=== PATIENT | female | born 1945 | race Caucasian/White ===

== ENCOUNTER 2020-05-01 06:15 | Outpatient (REF) | payer MEDICARE, SELFPAY | END 2020-05-01 06:16 | disposition home or self-care (01) | LOC: HO.LAB 06:15 | PROVIDERS: PCP Internal Medicine; Visit Provider Internal Medicine | DX: Z20.828 Contact with and (suspected) exposure to other viral communicable diseases (principal) | CPT/HCPCS: C9803; U0003 ==

== ENCOUNTER 2020-08-13 11:23 | Outpatient (REF) | payer MEDICARE, SELFPAY ==
[2020-08-13 13:14] LABS: COVID-19 Test Negative (Negative)
== END 2020-08-13 11:24 | disposition home or self-care (01) ==
LOC: HO.LAB 11:23
PROVIDERS: Visit Provider Internal Medicine
DX: Z20.822 Contact with and (suspected) exposure to COVID-19 (principal)
CPT/HCPCS: 36415; 87635; C9803

== ENCOUNTER 2021-08-05 12:16 | Day surgery (SDC) | payer MEDICARE, SELFPAY ==
--- NOTE | 2021-08-02 09:35 | P.CONAN_ITS ---
Documented by User: Marika Hagen NP 08/02/21 09:36 HPI - Anesthesia Eval Consult details Narrative: 76yo F for Upper Endoscopy and Colonoscopy Multiple Med Allergies including fentanyl and lidocaine PMFSH Past Medical History Medical History (Updated 07/31/21 @ 11:08 by Yolanda Preciado, RN) Dysphagia Fibromyalgia GERD (gastroesophageal reflux disease) Hx of sinusitis Left bundle branch block (LBBB) Lower extremity edema Osteoporosis Personal history of COVID-19 Skin cancer Skin cancer of forehead Surgical History Surgical History (Updated 07/31/21 @ 11:08 by Yolanda Preciado, RN) History of appendectomy History of esophagogastroduodenoscopy (EGD) Hx of section Hx of colonoscopy Hx of hysterectomy Social History Social History Patient Tobacco Use Status: Never used Tobacco Use of substances other than those prescribed or required for medical reasons: No Are you DNR?: No Advance Directives: No Advance Directives Information Provided: Yes Recently lost weight without trying: No Nutrition Risks: No Nutritional Risk Meds Allergies Allergy/AdvReac Type Severity Reaction Status Date / Time Iodinated Contrast Media Allergy Severe Rash Verified 08/05/21 12:42 [IV CONTRAST] amoxicillin [AMOXICILLIN] Allergy Intermediate HIVES Verified 08/05/21 12:40 aspirin [ASA] Allergy Intermediate HIVES Verified 08/05/21 12:40 atenolol [ATENOLOL] Allergy Intermediate HIVES Verified 08/05/21 12:40 caffeine [CAFFEINE] Allergy Intermediate HIVES Verified 08/05/21 12:40 cat dander [CATS] Allergy Intermediate HIVES Verified 08/05/21 12:40 cefprozil [From CEFZIL] Allergy Intermediate HIVES Verified 08/05/21 12:40 cephalexin [From KEFLEX] Allergy Intermediate HIVES Verified 08/05/21 12:40 clarithromycin [From BIAXIN] Allergy Intermediate HIVES Verified 08/05/21 12:40 clindamycin [From CLEOCIN] Allergy Intermediate HIVES Verified 08/05/21 12:40 codeine [CODEINE] Allergy Intermediate HIVES Verified 08/05/21 12:40 corn [CORN] Allergy Intermediate HIVES Verified 08/05/21 12:40 diphenhydramine Allergy Intermediate HIVES Verified 08/05/21 12:40 [From BENADRYL] dog dander [DOGS] Allergy Intermediate HIVES Verified 08/05/21 12:40 egg [EGGS] Allergy Intermediate HIVES Verified 08/05/21 12:40 erythromycin base Allergy Intermediate ANAPHYLAXIS Verified 08/05/21 12:40 [From ERYTHROCIN] fentanyl [FENTANYL] Allergy Intermediate HIVES Verified 08/05/21 12:40 ghosh [GHOSH] Allergy Intermediate HIVES Verified 08/05/21 12:40 horse dander [HORSE DANDER] Allergy Intermediate HIVES Verified 08/05/21 12:40 ibuprofen [IBUPROFEN] Allergy Intermediate HIVES Verified 08/05/21 12:40 insect venom [MOSQUITO] Allergy Intermediate HIVES Verified 08/05/21 12:40 latex [LATEX] Allergy Intermediate HIVES Verified 08/05/21 12:40 levofloxacin [From LEVAQUIN] Allergy Intermediate HIVES Verified 08/05/21 12:40 lidocaine [LIDOCAINE] Allergy Intermediate HIVES Verified 08/05/21 12:40 metoprolol [METOPROLOL] Allergy Intermediate HIVES Verified 08/05/21 12:40 mite-Dermatophagoides Allergy Intermediate HIVES Verified 08/05/21 12:40 farinae, florentin [DUST MITES] mold [MOLD] Allergy Intermediate HIVES Verified 08/05/21 12:40 nut - unspecified [NUTS] Allergy Intermediate HIVES Verified 08/05/21 12:40 Penicillins [PCN] Allergy Intermediate Anaphylaxis Verified 08/05/21 12:42 soy [SOY] Allergy Intermediate HIVES Verified 08/05/21 12:40 Sulfa (Sulfonamide Allergy Intermediate HIVES Verified 08/05/21 12:40 Antibiotics) [SULFA (SULFONAMIDE ANTIBIOTICS)] sulfamethoxazole Allergy Intermediate HIVES Verified 08/05/21 12:40 [From BACTRIM] tetracycline [TETRACYCLINE] Allergy Intermediate HIVES Verified 08/05/21 12:40 tree and shrub pollen [TREE] Allergy Intermediate HIVES Verified 08/05/21 12:40 trimethoprim [From BACTRIM] Allergy Intermediate HIVES Verified 08/05/21 12:40 wheat [WHEAT] Allergy Intermediate HIVES Verified 08/05/21 12:40 clavulanic acid [Augmentin] Allergy Unknown Unknown Verified 07/31/21 10:54 mannitol [Reclast] Allergy Unknown Unknown Verified 07/31/21 10:54 methsuximide [Celontin] Allergy Unknown Unknown Verified 07/31/21 10:54 zoledronic acid [Reclast] Allergy Unknown Unknown Verified 07/31/21 10:54 prednisone Allergy Rash Verified 08/05/21 12:44 shellfish derived Allergy Rash Verified 08/05/21 12:47 doxycycline AdvReac Severe Rash Verified 08/05/21 12:47 acetaminophen AdvReac Rash Verified 08/05/21 12:45 banana AdvReac Rash Verified 08/05/21 12:49 DUST Allergy Intermediate HIVES Uncoded 07/31/21 10:54 FRUIT Allergy Intermediate HIVES Uncoded 07/31/21 10:54 MADRIBON Allergy Intermediate HIVES Uncoded 07/31/21 10:54 VEGETABLES,FRESH Allergy Intermediate HIVES Uncoded 07/31/21 10:54 Ivp Dye- Omnipaque AdvReac Unknown rash Uncoded 07/31/21 10:54 Home Medications Medication Instructions Recorded Confirmed Last Taken Type calcium carbonate 600 mg-vitamin 1 tab PO DAILY 07/31/21 07/31/21 Unknown History D3 5 mcg (200 unit) tablet ibandronate 150 mg tablet 150 mg PO QMONTH 07/31/21 07/31/21 Unknown History multivitamin with minerals 1 tab PO DAILY 07/31/21 07/31/21 Unknown History Exam Exam Date and Time: August 02, 2021 0935 Assessment and Plan Assessment Anesthesia Assessment: Chart Reviewed Documented by User: Lon Subramanian MD 08/05/21 21:18 [facility] Past Medical History Medical History (Updated 07/31/21 @ 11:08 by Yolanda Preciado, AILEEN) Dysphagia Fibromyalgia GERD (gastroesophageal reflux disease) Hx of sinusitis Left bundle branch block (LBBB) Lower extremity edema Osteoporosis Personal history of COVID-19 Skin cancer Skin cancer of forehead Family History Family history of problems with anesthesia: No Surgical History Surgical History (Updated 07/31/21 @ 11:08 by Yloanda Preciado, AILEEN) History of appendectomy History of esophagogastroduodenoscopy (EGD) Hx of section Hx of colonoscopy Hx of hysterectomy History of Problems with Anesthesia: No Social History Social History Patient Tobacco Use Status: Never used Tobacco Use of substances other than those prescribed or required for medical reasons: No Are you DNR?: No Advance Directives: No Advance Directives Information Provided: Yes Recently lost weight without trying: No Nutrition Risks: No Nutritional Risk Meds Allergies Allergy/AdvReac Type Severity Reaction Status Date / Time Iodinated Contrast Media Allergy Severe Rash Verified 08/05/21 12:42 [IV CONTRAST] amoxicillin [AMOXICILLIN] Allergy Intermediate HIVES Verified 08/05/21 12:40 aspirin [ASA] Allergy Intermediate HIVES Verified 08/05/21 12:40 atenolol [ATENOLOL] Allergy Intermediate HIVES Verified 08/05/21 12:40 caffeine [CAFFEINE] Allergy Intermediate HIVES Verified 08/05/21 12:40 cat dander [CATS] Allergy Intermediate HIVES Verified 08/05/21 12:40 cefprozil [From CEFZIL] Allergy Intermediate HIVES Verified 08/05/21 12:40 cephalexin [From KEFLEX] Allergy Intermediate HIVES Verified 08/05/21 12:40 clarithromycin [From BIAXIN] Allergy Intermediate HIVES Verified 08/05/21 12:40 clindamycin [From CLEOCIN] Allergy Intermediate HIVES Verified 08/05/21 12:40 codeine [CODEINE] Allergy Intermediate HIVES Verified 08/05/21 12:40 corn [CORN] Allergy Intermediate HIVES Verified 08/05/21 12:40 diphenhydramine Allergy Intermediate HIVES Verified 08/05/21 12:40 [From BENADRYL] dog dander [DOGS] Allergy Intermediate HIVES Verified 08/05/21 12:40 egg [EGGS] Allergy Intermediate HIVES Verified 08/05/21 12:40 erythromycin base Allergy Intermediate ANAPHYLAXIS Verified 08/05/21 12:40 [From ERYTHROCIN] fentanyl [FENTANYL] Allergy Intermediate HIVES Verified 08/05/21 12:40 ghosh [GHOSH] Allergy Intermediate HIVES Verified 08/05/21 12:40 horse dander [HORSE DANDER] Allergy Intermediate HIVES Verified 08/05/21 12:40 ibuprofen [IBUPROFEN] Allergy Intermediate HIVES Verified 08/05/21 12:40 insect venom [MOSQUITO] Allergy Intermediate HIVES Verified 08/05/21 12:40 latex [LATEX] Allergy Intermediate HIVES Verified 08/05/21 12:40 levofloxacin [From LEVAQUIN] Allergy Intermediate HIVES Verified 08/05/21 12:40 lidocaine [LIDOCAINE] Allergy Intermediate HIVES Verified 08/05/21 12:40 metoprolol [METOPROLOL] Allergy Intermediate HIVES Verified 08/05/21 12:40 mite-Dermatophagoides Allergy Intermediate HIVES Verified 08/05/21 12:40 farinae, florentin [DUST MITES] mold [MOLD] Allergy Intermediate HIVES Verified 08/05/21 12:40 nut - unspecified [NUTS] Allergy Intermediate HIVES Verified 08/05/21 12:40 Penicillins [PCN] Allergy Intermediate Anaphylaxis Verified 08/05/21 12:42 soy [SOY] Allergy Intermediate HIVES Verified 08/05/21 12:40 Sulfa (Sulfonamide Allergy Intermediate HIVES Verified 08/05/21 12:40 Antibiotics) [SULFA (SULFONAMIDE ANTIBIOTICS)] sulfamethoxazole Allergy Intermediate HIVES Verified 08/05/21 12:40 [From BACTRIM] tetracycline [TETRACYCLINE] Allergy Intermediate HIVES Verified 08/05/21 12:40 tree and shrub pollen [TREE] Allergy Intermediate HIVES Verified 08/05/21 12:40 trimethoprim [From BACTRIM] Allergy Intermediate HIVES Verified 08/05/21 12:40 wheat [WHEAT] Allergy Intermediate HIVES Verified 08/05/21 12:40 clavulanic acid [Augmentin] Allergy Unknown Unknown Verified 07/31/21 10:54 mannitol [Reclast] Allergy Unknown Unknown Verified 07/31/21 10:54 methsuximide [Celontin] Allergy Unknown Unknown Verified 07/31/21 10:54 zoledronic acid [Reclast] Allergy Unknown Unknown Verified 07/31/21 10:54 prednisone Allergy Rash Verified 08/05/21 12:44 shellfish derived Allergy Rash Verified 08/05/21 12:47 doxycycline AdvReac Severe Rash Verified 08/05/21 12:47 acetaminophen AdvReac Rash Verified 08/05/21 12:45 banana AdvReac Rash Verified 08/05/21 12:49 DUST Allergy Intermediate HIVES Uncoded 07/31/21 10:54 FRUIT Allergy Intermediate HIVES Uncoded 07/31/21 10:54 MADRIBON Allergy Intermediate HIVES Uncoded 07/31/21 10:54 VEGETABLES,FRESH Allergy Intermediate HIVES Uncoded 07/31/21 10:54 Ivp Dye- Omnipaque AdvReac Unknown rash Uncoded 07/31/21 10:54 Home Medications Medication Instructions Recorded Confirmed Last Taken Type calcium carbonate 600 mg-vitamin 1 tab PO DAILY 07/31/21 07/31/21 Unknown History D3 5 mcg (200 unit) tablet ibandronate 150 mg tablet 150 mg PO QMONTH 07/31/21 07/31/21 Unknown History multivitamin with minerals 1 tab PO DAILY 07/31/21 07/31/21 Unknown History Exam Airway Mallampati Class: I TM Dist: >3cm Neck ROM: Full Loose/Missing/Broken Teeth: Yes Heart: rrr Lungs: b/l breath sounds Assessment and Plan Assessment Anesthesia Assessment: Anesthesia Plan Discussed Final Anesthetic Review Family History of Problems with Anesthesia: No History of Problems with Anesthesia: No NPO: Yes ASA Class: III Final Preanesthetic Review: Meds/Allgs Chart Reviewed, Consent Obtained/Reviewed and Anes Risks/Benef Reviewed Patient Risk: High Procedure Risk: Intermediate Anesthetic Plan Anesthetic Plan: MAC: Disposition: Standard PACU
[2021-08-05 12:50] VITALS: BMI 23.2
[2021-08-05 13:12] VITALS: BP 165/91; PULSE 107; RESP 18; TEMP 37.1; O2SAT 99
[2021-08-05] MEDS: Lactated Ringers 1,000 ML 100 ML IVCONT (13:21)
[2021-08-05 15:25] VITALS: BP 127/75; PULSE 99; RESP 12; TEMP 36.2; O2SAT 97
--- NOTE | 2021-08-05 15:30 | P.BOP_ITS ---
Brief Operative Note Date of Service: 08/05/21 Pre-op diagnosis: Dysphagia, Rectal bleeding Post-op diagnosis: other (Esophagitis, Hiatal hernia, Cecal mass) Procedure: EGD with biopsies, Colnoscopy to the cecum with biopsies and hot snare p olypectomy from the cecal mass Surgeon: Eric Wiggins Anesthesia: MAC Was an Special Education Teacher used for this Procedure?: No Estimated blood loss (mL): 2.0 Pathology: other (A. EG Junction at 35cm B. Cecal mass C. Ileocecal valve biopsies) Condition: stable Disposition: PACU
[2021-08-05 15:40] VITALS: BP 104/58; PULSE 104; RESP 18; TEMP 36.2; O2SAT 98
--- NOTE | 2021-08-06 01:51 | OP_ITS ---
SURGEON: Eric Wiggins MD INDICATIONS: The patient presents for evaluation of gastroesophageal reflux, dysphagia, constipation, and hematochezia. Full consent has been obtained from her for this, including risks of bleeding and perforation. PREOPERATIVE DIAGNOSIS: POSTOPERATIVE DIAGNOSIS: PROCEDURE PERFORMED: Esophagogastroduodenoscopy with biopsies, and colonoscopy to the cecum with hot snare polypectomy and biopsies. ESTIMATED BLOOD LOSS: COMPLICATIONS: ANESTHESIA: Medication use, monitored anesthesia care. ASSISTANTS: SPECIMENS: PREOPERATIVE DIAGNOSES: Gastroesophageal reflux, dysphagia, hematochezia, constipation. POSTOPERATIVE DIAGNOSES: Gastroesophageal reflux, dysphagia, hematochezia, constipation, cecal polypoid mass, diverticulosis, hiatal hernia, and reflux esophagitis, internal and external hemorrhoids. DESCRIPTION OF PROCEDURE: The patient was placed in the left lateral decubitus position. The Olympus video gastroscope was passed in the posterior oropharynx and upper esophagus under direct vision. The scope was passed slowly to the distal esophagus. The gastroesophageal junction appeared at 35 cm. This area was notable for some erosions, edema, and possibly small areas of Mejias mucosa. There was no ulceration nor mass. There was no stricture. The scope easily entered the stomach. There was a moderate-sized hiatal hernia. The scope was advanced to the pylorus and the duodenum was cannulated to the descending portion. The duodenum including the bulb appeared normal without mass or ulceration. The scope was withdrawn back in the stomach. The gastric antrum and body appeared normal with good peristalsis. The scope was retroflexed visualizing the proximal stomach carefully, which appeared normal, without any sign of mass or ulceration. Scope was straightened and withdrawn back to the esophagus. With insufflation of air, the gastroesophageal junction opened well, and there was no sign of any stricture nor ring. However, there was evidence of the esophagitis and edema. Biopsies were obtained at the EG junction at 35 cm. Proximal to this, the esophageal mucosa appeared normal. The scope was withdrawn from the patient. She was turned around for the colonoscopy. The digital rectal exam revealed some external hemorrhoids. The Olympus video pediatric colonoscope was entered into the rectum and advanced easily to the cecum. Once in the cecum, I did identify cecal pouch with appendiceal orifice and ileocecal valve. There was transillumination of light deep in the right lower quadrant. The majority of the cecal pouch appeared normal. The majority of the ileocecal valve appeared normal. However, extending approximately 1/4 of the circumference of the cecum beginning along the inferior portion of the ileocecal valve, was a polypoid lesion, which was somewhat friable and appeared to be at least villous in appearance. Portions of this were on the ileocecal valve itself, particularly on the portion of the valve closest to the inside of the cecum. At this point, I felt the lesion was potentially too large to be removed and I felt, it would be best to make sure this was not a malignancy given the overall size of this lesion. The majority of it was on the inside edge of the cecum and extending into the cecum, although a small portion could be seen from the ascending colon. Portions were removed by hot snare polypectomy and recovered by suction. I also obtained several biopsies from the lesion itself. These were all placed in the same container. Given the location of the lesion, injecting it submucosally to lift it for attempted endoscopic removal could prove difficult. In a separate container, I also obtained biopsies from the part of the lesion that seemed to involve the ileocecal valve itself. The scope was then slowly withdrawn assessing all mucosal surfaces carefully. Preparation was excellent. I did not visualize any other polyps, colitis, nor angiodysplasia. There was a mild amount of sigmoid diverticulosis. In the rectum, the scope was retroflexed visualizing some internal hemorrhoids, but no other pathology. The rectal mucosa appeared normal. The scope was straightened and withdrawn from the patient, she tolerated both procedures well and was returned to the recovery area in stable condition. IMPRESSION: 1. Cecal polypoid lesion, status post partial removal, and biopsies. 2. Diverticulosis. 3. Internal hemorrhoids. 4. Reflux esophagitis. 5. Hiatal hernia. PLAN: The results of the biopsies will be checked. In regard to the upper endoscopy findings, she will start omeprazole 40 mg daily. This may help her swallowing improve as well. At some point, she may need a repeat endoscopy and balloon dilation if the swallowing problems persist despite being on the omeprazole. She was advised not to use any aspirin nor NSAIDs long-term. In regard to the lesion noted in the cecum, the results of the pathology will be checked. If this shows any type of carcinoma, she would need surgical consultation. If it is all villous adenoma, then we could consider repeat colonoscopy with endoscopic resection. This has all been discussed with her in detail. MD JAROD Mckeon/GROVER / [id number] NIYAH
== END 2021-08-05 16:05 | disposition home or self-care (01) ==
PROVIDERS: PCP Family Medicine; Visit Provider Internal Medicine
PROC: (CPT 45385; principal; 2021-08-05 13:30)
DX: K62.5 Hemorrhage of anus and rectum (principal); D12.0 Benign neoplasm of cecum; K57.30 Diverticulosis of large intestine without perforation or abscess without bleeding; K64.8 Other hemorrhoids; K64.4 Residual hemorrhoidal skin tags; K59.00 Constipation, unspecified; R13.14 Dysphagia, pharyngoesophageal phase; K21.00 Gastro-esophageal reflux disease with esophagitis, without bleeding; K44.9 Diaphragmatic hernia without obstruction or gangrene; I44.7 Left bundle-branch block, unspecified; M79.7 Fibromyalgia; M81.0 Age-related osteoporosis without current pathological fracture; Z79.899 Other long term (current) drug therapy; Z88.0 Allergy status to penicillin; Z88.2 Allergy status to sulfonamides; Z88.8 Allergy status to other drugs, medicaments and biological substances; Z85.828 Personal history of other malignant neoplasm of skin; Z86.16 Personal history of COVID-19; Z91.041 Radiographic dye allergy status
CPT/HCPCS: 45385; 45380; 43239; 88305; J2250

== ENCOUNTER → 2021-08-20 09:43 | Outpatient (BNVA) | payer MEDICARE, SELFPAY | PROVIDERS: PCP Family Medicine; Visit Provider Surgery | DX: D12.0 Benign neoplasm of cecum (principal) | CPT/HCPCS: 99202 ==

== ENCOUNTER 2021-10-21 14:17 | Emergency (ER) | payer MEDICARE, SELFPAY ==
--- NOTE | ~2021-10-21 | XR_ITS ---
EXAMINATION: XR ANKLE, RIGHT CLINICAL INFORMATION: Pain COMPARISON: None TECHNIQUE: AP, lateral, and mortise views of the right ankle. FINDINGS: The bones and soft tissues are normal. No fracture. Alignment is anatomic. Joint spaces are maintained. No joint effusion. XR/XR ankle RT min 3V IMPRESSION: No significant osseous changes to explain patient's pain symptoms.
--- NOTE | ~2021-10-21 | US_ITS ---
EXAMINATION: US VENOUS ULTRASOUND WITH DOPPLER LOWER EXTREMITY, BILATERAL CLINICAL INFORMATION: Pain COMPARISON: Previous exam November 2018 TECHNIQUE: Ultrasound of the deep veins is performed from the hip to the calf with compression sonography and color and pulse Doppler assessment. Spectral analysis with color-flow imaging is performed. FINDINGS: RIGHT: There is normal venous compression and respiratory variation and augmented flow. The visualized common femoral vein, superficial femoral vein, profunda femoral vein, popliteal vein, and the trifurcation region shows no evidence of deep venous thrombosis. There is no significant popliteal fossa cyst. LEFT: There is normal venous compression and respiratory variation and augmented flow. The visualized common femoral vein, superficial femoral vein, profunda femoral vein, popliteal vein, and the trifurcation region shows no evidence of deep venous thrombosis. There is no significant popliteal fossa cyst. US/US venous duplex LE BI IMPRESSION: No DVT demonstrated in the bilateral lower extremity.
[2021-10-21 14:55] VITALS: BP 159/74; PULSE 90; RESP 16; TEMP 37; O2SAT 98; BMI 22.8
[2021-10-21 15:23] LABS: MANUAL DIFF FLAG NO
[2021-10-21 15:25] LABS: Basophils Percent Auto 0.6 % (0-2); Eosinophils Absolute Auto 0.1 X10*3/uL (0.0-0.4); Eosinophils Percent Auto 1.6 % (0-4); Hemoglobin 14.9 g/dl (12.0-16.0); Imm Gran Abs Auto 0.02 X10*3/uL (0.00-0.03); Imm Gran Pct Auto 0.3 % (0.0-0.4); Lymphocytes Absolute Auto 1.6 X10*3/uL (1.2-4.9); Lymphocytes Percent Auto 26.1 % (20-40); Mean Corpuscular HGB Conc 33.1 g/dl (31.0-35.0); Mean Corpuscular Hemoglobin 27.3 pg (27.0-33.0); Mean Corpuscular Volume 82.4 fL (80.0-98.0); Mean Platelet Volume 10.3 fL (9.4-12.3); Monocytes Absolute Auto 0.6 X10*3/uL (0.1-1.2); Monocytes Percent Auto 8.9 % (2-11); Neutrophils Absolute Auto 3.8 x10*3/uL (2.0-8.3); Neutrophils Percent Auto 62.5 % (45-73); Platelet Count 262 X10*3/uL (160-400); Red Blood Count 5.46 X10*6/uL (4.20-5.50); Red Cell Distribution Width 14.2 % (11.0-16.0); White Blood Count 6.2 X10*3/uL (4.8-10.8)
[2021-10-21 15:35] LABS: Anion Gap 12 (12-20); Blood Urea Nitrogen 13 mg/dL (9-16); Calcium 9.5 mg/dL (8.4-10.2); Carbon Dioxide 26 mmol/L (22-29); Chloride 104 mmol/L (96-108); Creatinine Clr Calc Pharmacy 42.6; Estimated Glomerular Filt Rate > 60; Glucose Random 102 mg/dL (60-115); Potassium 5.1 mmol/L (3.3-5.1); Sodium 137 mmol/L (135-145)
[2021-10-21 17:25] VITALS: BP 157/76; PULSE 106; RESP 16; O2SAT 97
--- NOTE | 2021-10-21 17:28 | ED.EXTPRO ---
HPI - Extremity Problem General Chief complaint: Extremity Injury, Lower Stated complaint: pain in both legs feet and ankles Time Seen by Provider: 10/21/21 17:27 Source: patient Mode of arrival: ambulatory Limitations: no limitations History of Present Illness HPI Narrative: Patient has chronic leg edema with venous insufficiency with chronic pain comes here for increased pain lately for last 3 - 4 days and right ankle, no history of trauma no history of gout no fever patient able to walk with slight pain no other joint pain no shortness or no chest Related Data Home Medications Medication Instructions Recorded Confirmed calcium carbonate 600 mg-vitamin 1 tab PO DAILY 07/31/21 07/31/21 D3 5 mcg (200 unit) tablet ibandronate 150 mg tablet 150 mg PO QMONTH 07/31/21 07/31/21 multivitamin with minerals 1 tab PO DAILY 07/31/21 07/31/21 omeprazole 40 mg capsule,delayed 40 mg PO DAILY 08/20/21 08/20/21 release Previous Rx's Medication Instructions Recorded neomycin 500 mg tablet 1 g PO .COMPLEX 3 doses #6 tabs 09/05/21 Allergies Allergy/AdvReac Type Severity Reaction Status Date / Time Iodinated Contrast Media Allergy Severe Rash Verified 08/20/21 10:48 [IV CONTRAST] amoxicillin [AMOXICILLIN] Allergy Intermediate HIVES Verified 08/20/21 10:48 aspirin [ASA] Allergy Intermediate HIVES Verified 08/20/21 10:48 atenolol [ATENOLOL] Allergy Intermediate HIVES Verified 08/20/21 10:48 caffeine [CAFFEINE] Allergy Intermediate HIVES Verified 08/20/21 10:48 cat dander [CATS] Allergy Intermediate HIVES Verified 08/20/21 10:48 cefprozil [From CEFZIL] Allergy Intermediate HIVES Verified 08/20/21 10:48 cephalexin [From KEFLEX] Allergy Intermediate HIVES Verified 08/20/21 10:48 clarithromycin [From BIAXIN] Allergy Intermediate HIVES Verified 08/20/21 10:48 clindamycin [From CLEOCIN] Allergy Intermediate HIVES Verified 08/20/21 10:48 codeine [CODEINE] Allergy Intermediate HIVES Verified 08/20/21 10:48 corn [CORN] Allergy Intermediate HIVES Verified 08/20/21 10:48 diphenhydramine Allergy Intermediate HIVES Verified 08/20/21 10:48 [From BENADRYL] dog dander [DOGS] Allergy Intermediate HIVES Verified 08/20/21 10:48 egg [EGGS] Allergy Intermediate HIVES Verified 08/20/21 10:48 erythromycin base Allergy Intermediate ANAPHYLAXIS Verified 08/20/21 10:48 [From ERYTHROCIN] fentanyl [FENTANYL] Allergy Intermediate HIVES Verified 08/20/21 10:48 ghosh [GHOSH] Allergy Intermediate HIVES Verified 08/20/21 10:48 horse dander [HORSE DANDER] Allergy Intermediate HIVES Verified 08/20/21 10:48 ibuprofen [IBUPROFEN] Allergy Intermediate HIVES Verified 08/20/21 10:48 insect venom [MOSQUITO] Allergy Intermediate HIVES Verified 08/20/21 10:48 latex [LATEX] Allergy Intermediate HIVES Verified 08/20/21 10:48 levofloxacin [From LEVAQUIN] Allergy Intermediate HIVES Verified 08/20/21 10:48 metoprolol [METOPROLOL] Allergy Intermediate HIVES Verified 08/20/21 10:48 mite-Dermatophagoides Allergy Intermediate HIVES Verified 08/20/21 10:48 farinae, florentin [DUST MITES] mold [MOLD] Allergy Intermediate HIVES Verified 08/20/21 10:48 nut - unspecified [NUTS] Allergy Intermediate HIVES Verified 08/20/21 10:48 Penicillins [PCN] Allergy Intermediate Anaphylaxis Verified 08/20/21 10:48 soy [SOY] Allergy Intermediate HIVES Verified 08/20/21 10:48 Sulfa (Sulfonamide Allergy Intermediate HIVES Verified 08/20/21 10:48 Antibiotics) [SULFA (SULFONAMIDE ANTIBIOTICS)] sulfamethoxazole Allergy Intermediate HIVES Verified 08/20/21 10:48 [From BACTRIM] tetracycline [TETRACYCLINE] Allergy Intermediate HIVES Verified 08/20/21 10:48 tree and shrub pollen [TREE] Allergy Intermediate HIVES Verified 08/20/21 10:48 trimethoprim [From BACTRIM] Allergy Intermediate HIVES Verified 08/20/21 10:48 wheat [WHEAT] Allergy Intermediate HIVES Verified 08/20/21 10:48 chicken derived Allergy Mild Unknown Verified 08/20/21 10:48 pork derived (porcine) Allergy Mild Unknown Verified 08/20/21 10:48 clavulanic acid [Augmentin] Allergy Unknown Unknown Verified 08/20/21 10:48 mannitol [Reclast] Allergy Unknown Unknown Verified 08/20/21 10:48 zoledronic acid [Reclast] Allergy Unknown Unknown Verified 08/20/21 10:48 prednisone Allergy Rash Verified 08/20/21 10:48 shellfish derived Allergy Rash Verified 08/20/21 10:48 doxycycline AdvReac Severe Rash Verified 08/20/21 10:48 acetaminophen AdvReac Rash Verified 08/20/21 10:48 banana AdvReac Rash Verified 08/20/21 10:48 DUST Allergy Intermediate HIVES Uncoded 08/20/21 10:48 FRUIT Allergy Intermediate HIVES Uncoded 08/20/21 10:48 MADRIBON Allergy Intermediate HIVES Uncoded 08/20/21 10:48 VEGETABLES,FRESH Allergy Intermediate HIVES Uncoded 08/20/21 10:48 Ivp Dye- Omnipaque AdvReac Unknown rash Uncoded 08/20/21 10:48 Review of Systems Review of Systems: Yes all other systems are reviewed and are negative PMFSH Past Medical History Medical History Dysphagia Fibromyalgia GERD (gastroesophageal reflux disease) Hx of sinusitis Left bundle branch block (LBBB) Lower extremity edema Osteoporosis Personal history of COVID-19 Skin cancer Skin cancer of forehead Surgical History History of appendectomy History of esophagogastroduodenoscopy (EGD) Hx of section Hx of colonoscopy Hx of hysterectomy Family History Family History Father Bladder cancer Social History Social History Alcohol intake: never Patient Tobacco Use Status: Never used Tobacco Use of substances other than those prescribed or required for medical reasons: No Advance Directives: No Advance Directives Information Provided: No Physical Exam Vital Signs: Vital Signs: Last Vital Signs Temp 98.6 F 10/21/21 14:55 Pulse 106 H 10/21/21 17:25 Resp 16 10/21/21 17:25 BP 157/76 H 10/21/21 17:25 Pulse Ox 97 10/21/21 17:25 O2 Del Method 10/21/21 14:55 BMI result Body Mass Index 22.8 Appearance: Alert. Oriented X3. No acute distress. ENT: Pharynx normal. Oral Mucosa moist Neck: Normal inspection. Neck supple. CVS: Normal heart rate and rhythm. Pulses normal. Respiratory: No respiratory distress. Equal air entry bilateral, no wheezing/rales/rhonchi Abdomen: Soft and nontender. Bowel sounds are present, no mass palpable, no CVA tenderness Skin: Skin warm and dry. Normal skin color. Normal skin turgor. Extremities: 2+ lower extremity edema. No calf tenderness diffuse tenderness right ankle no deformity Neuro: Oriented X 3. No motor deficit. No sensory deficit.No cerebellar signs , cranial nerves II-XII intact MDM - Extremity (Nontraumatic) MDM Narrative Medical decision making narrative: Patient has stable labs chronic leg pain chronic in agreement and venous Doppler negative for blood clot x-ray negative discharge patient home Lab Data Attestation: I reviewed the patient's lab results. Result diagrams: 10/21/21 15:17 10/21/21 15:17 Labs: Lab Results 10/21/21 10/21/21 10/21/21 Range/Units 15:17 15:17 15:17 WBC 6.2 (4.8-10.8) X10*3/uL RBC 5.46 (4.20-5.50) X10*6/uL Hgb 14.9 (12.0-16.0) g/dl Hct 45.0 (37.0-47.0) % MCV 82.4 (80.0-98.0) fL MCH 27.3 (27.0-33.0) pg MCHC 33.1 (31.0-35.0) g/dl RDW 14.2 (11.0-16.0) % Plt Count 262 (160-400) X10*3/uL MPV 10.3 (9.4-12.3) fL Immature Gran % (Auto) 0.3 (0.0-0.4) % Neut % (Auto) 62.5 (45-73) % Lymph % (Auto) 26.1 (20-40) % [place] % (Auto) 8.9 (2-11) % Eos % (Auto) 1.6 (0-4) % Baso % (Auto) 0.6 (0-2) % Lymph # (Auto) 1.6 (1.2-4.9) X10*3/uL [place] # (Auto) 0.6 (0.1-1.2) X10*3/uL Eos # (Auto) 0.1 (0.0-0.4) X10*3/uL Baso # (Auto) 0.0 (0.0-0.2) X10*3/uL Abs Immat Gran (auto) 0.02 (0.00-0.03) X10*3/uL Absolute Neuts (auto) 3.8 (2.0-8.3) x10*3/uL Absolute Nucleated RBC 0.000 (0.0-0.012) X10*3/uL Nucleated RBC % (auto) 0.0 (0.0-0.2) /100WBC Sodium 137 (135-145) mmol/L Potassium 5.1 (3.3-5.1) mmol/L Chloride 104 (96-108) mmol/L Carbon Dioxide 26 (22-29) mmol/L Anion Gap 12 (12-20) BUN 13 (9-16) mg/dL Creatinine 0.79 (0.5-1.4) mg/dL Estim Creat Clear Calc 42.6 Estimated GFR > 60 Random Glucose 102 (60-115) mg/dL Uric Acid 3.0 (2.4-5.7) mg/dL Calcium 9.5 (8.4-10.2) mg/dL C-Reactive Protein 0.09 (< or = 0.50) mg/dL B-Natriuretic Peptide 18 (<100) pg/mL Discharge Plan Discharge Clinical Impression: Arthritis Patient Disposition: Home, Self-Care Instructions: Swollen Ankle Joint (ED) Additional Instructions: Care as advised Continue medications as prescribed by your PCP Prescriptions: No Action neomycin 500 mg tablet 1 g PO .COMPLEX Qty: 6 0RF Rx Instructions: 1 g PO; administer at 1 PM, 2 PM, and 11 PM the day prior to surgery calcium carbonate-vitamin D3 [Calcium + D] 600 mg-5 mcg (200 unit) Tablet 1 tab PO DAILY multivitamin with minerals Tablet 1 tab PO DAILY ibandronate 150 mg Tablet 150 mg PO QMONTH omeprazole 40 mg capsule,delayed release(DR/EC) 40 mg PO DAILY Interventions: ED Discharge Assessment Last Done: 10/21/21 19:43 Discharge Date/Time: 10/21/21 19:43
--- NOTE | 2021-10-21 17:33 | PC.NURSE ---
pt with bilateral leg pain/swelling since last . wears compression stocking but didnt wear them today
[2021-10-21 18:02] LABS: C Reactive Protein 0.09 mg/dL (< or = 0.50)
[2021-10-21 18:18] LABS: B Type Natriuretic Peptide 18 pg/mL (<100)
== END 2021-10-21 19:43 | disposition home or self-care (01) ==
PROVIDERS: Emergency Provider Internal Medicine; PCP Family Medicine
DX: M79.604 Pain in right leg (principal); M79.605 Pain in left leg; R60.0 Localized edema; M25.571 Pain in right ankle and joints of right foot; R06.02 Shortness of breath; Z79.899 Other long term (current) drug therapy
CPT/HCPCS: 36415; 73610; 80048; 83880; 84550; 85025; 86140; 93970; 99284

== ENCOUNTER 2021-11-30 07:58 | Emergency (ER) | payer MEDICARE, SELFPAY ==
--- NOTE | ~2021-11-30 | XR_ITS ---
EXAMINATION: XR ANKLE, RIGHT CLINICAL INFORMATION: Redness, swelling and pain involving the lateral ankle. COMPARISON: None TECHNIQUE: AP, lateral, and mortise views of the right ankle. FINDINGS: Significant soft tissue swelling is present around the right ankle. The bony alignments are intact. The cortices are intact. Articular margins, joint space appear unremarkable. Mild diffuse osteopenia is noted. XR/XR ankle RT min 3V IMPRESSION: Significant diffuse soft tissue swelling around the right ankle and underlying mild diffuse osteopenia, otherwise unremarkable.
[2021-11-30 08:08] VITALS: BP 144/73; PULSE 111; RESP 19; TEMP 36.6; O2SAT 98; BMI 23.0
[2021-11-30 08:42] LABS: MANUAL DIFF FLAG NO
[2021-11-30 08:56] LABS: Anion Gap 13 (12-20); Blood Urea Nitrogen 7 mg/dL (9-16); Calcium 9.1 mg/dL (8.4-10.2); Carbon Dioxide 24 mmol/L (22-29); Chloride 106 mmol/L (96-108); Creatinine Clr Calc Pharmacy 45.5; Estimated Glomerular Filt Rate > 60; Glucose Random 121 mg/dL (60-115); Potassium 4.2 mmol/L (3.3-5.1); Sodium 139 mmol/L (135-145)
[2021-11-30 09:02] LABS: Basophils Percent Auto 0.4 % (0-2); Eosinophils Absolute Auto 0.1 X10*3/uL (0.0-0.4); Eosinophils Percent Auto 1.8 % (0-4); Hematocrit 40.9 % (37.0-47.0); Hemoglobin 13.7 g/dl (12.0-16.0); Imm Gran Abs Auto 0.02 X10*3/uL (0.00-0.03); Imm Gran Pct Auto 0.4 % (0.0-0.4); Lymphocytes Absolute Auto 1.1 X10*3/uL (1.2-4.9); Lymphocytes Percent Auto 23.1 % (20-40); Mean Corpuscular HGB Conc 33.5 g/dl (31.0-35.0); Mean Corpuscular Hemoglobin 27.5 pg (27.0-33.0); Mean Corpuscular Volume 82.1 fL (80.0-98.0); Monocytes Absolute Auto 0.5 X10*3/uL (0.1-1.2); Monocytes Percent Auto 10.5 % (2-11); Neutrophils Absolute Auto 3.1 x10*3/uL (2.0-8.3); Neutrophils Percent Auto 63.8 % (45-73); Platelet Count 221 X10*3/uL (160-400); Red Blood Count 4.98 X10*6/uL (4.20-5.50); Red Cell Distribution Width 14.2 % (11.0-16.0); White Blood Count 4.9 X10*3/uL (4.8-10.8)
[2021-11-30 11:43] VITALS: BP 160/80; PULSE 98; RESP 20; TEMP 37; O2SAT 99
--- NOTE | 2021-11-30 12:18 | ED_ITS ---
HPI - Extremity Problem General Chief complaint: Wound/Laceration Stated complaint: infection in R ankle Time Seen by Provider: 11/30/21 09:16 Source: patient Mode of arrival: ambulatory Limitations: no limitations History of Present Illness HPI Narrative: 76-year-old female with a history of fibromyalgia, left bundle-branch block, osteoporosis, osteoarthritis, venous insufficiency, history of left hand cellulitis requiring admission to [facility] last summer who presents to the ER for evaluation of right lateral foot redness, swelling and pain that started yesterday morning. She denies any injury to the area. She reports it has been getting worse over the last 24 hours. She reports there is generalized redness, warmth, and swelling of the right lateral ankle and it extends behind ankle as well. It does not extend up the leg. She denies any calf pain or tenderness. No shortness of breath or chest pain. She reports generally not feeling well. MD Complaint: joint swelling and joint pain Onset (ago): day(s) (1) Pain Consistency: constant Location: right and lower extremity Severity scale (1-10): 5 Quality: aching Radiation: none Relieving factors: immobilization Exacerbating factors: range of motion, weight bearing and palpation Associated symptoms: denies other symptoms Related Data Home Medications Medication Instructions Recorded Confirmed calcium carbonate 600 mg-vitamin 1 tab PO DAILY 07/31/21 07/31/21 D3 5 mcg (200 unit) tablet ibandronate 150 mg tablet 150 mg PO QMONTH 07/31/21 07/31/21 multivitamin with minerals 1 tab PO DAILY 07/31/21 07/31/21 omeprazole 40 mg capsule,delayed 40 mg PO DAILY 08/20/21 08/20/21 release Previous Rx's Medication Instructions Recorded neomycin 500 mg tablet 1 g PO .COMPLEX 3 doses #6 tabs 09/05/21 linezolid 600 mg tablet 600 mg PO Q12H 10 days #20 tabs 11/30/21 Allergies Allergy/AdvReac Type Severity Reaction Status Date / Time Iodinated Contrast Media Allergy Severe Rash Verified 08/20/21 10:48 [IV CONTRAST] amoxicillin [AMOXICILLIN] Allergy Intermediate HIVES Verified 08/20/21 10:48 aspirin [ASA] Allergy Intermediate HIVES Verified 08/20/21 10:48 atenolol [ATENOLOL] Allergy Intermediate HIVES Verified 08/20/21 10:48 caffeine [CAFFEINE] Allergy Intermediate HIVES Verified 08/20/21 10:48 cat dander [CATS] Allergy Intermediate HIVES Verified 08/20/21 10:48 cefprozil [From CEFZIL] Allergy Intermediate HIVES Verified 08/20/21 10:48 cephalexin [From KEFLEX] Allergy Intermediate HIVES Verified 08/20/21 10:48 clarithromycin [From BIAXIN] Allergy Intermediate HIVES Verified 08/20/21 10:48 clindamycin [From CLEOCIN] Allergy Intermediate HIVES Verified 08/20/21 10:48 codeine [CODEINE] Allergy Intermediate HIVES Verified 08/20/21 10:48 corn [CORN] Allergy Intermediate HIVES Verified 08/20/21 10:48 diphenhydramine Allergy Intermediate HIVES Verified 08/20/21 10:48 [From BENADRYL] dog dander [DOGS] Allergy Intermediate HIVES Verified 08/20/21 10:48 egg [EGGS] Allergy Intermediate HIVES Verified 08/20/21 10:48 erythromycin base Allergy Intermediate ANAPHYLAXIS Verified 08/20/21 10:48 [From ERYTHROCIN] fentanyl [FENTANYL] Allergy Intermediate HIVES Verified 08/20/21 10:48 ghosh [GHOSH] Allergy Intermediate HIVES Verified 08/20/21 10:48 horse dander [HORSE DANDER] Allergy Intermediate HIVES Verified 08/20/21 10:48 ibuprofen [IBUPROFEN] Allergy Intermediate HIVES Verified 08/20/21 10:48 insect venom [MOSQUITO] Allergy Intermediate HIVES Verified 08/20/21 10:48 latex [LATEX] Allergy Intermediate HIVES Verified 08/20/21 10:48 levofloxacin [From LEVAQUIN] Allergy Intermediate HIVES Verified 08/20/21 10:48 metoprolol [METOPROLOL] Allergy Intermediate HIVES Verified 08/20/21 10:48 mite-Dermatophagoides Allergy Intermediate HIVES Verified 08/20/21 10:48 farinae, florentin [DUST MITES] mold [MOLD] Allergy Intermediate HIVES Verified 08/20/21 10:48 nut - unspecified [NUTS] Allergy Intermediate HIVES Verified 08/20/21 10:48 Penicillins [PCN] Allergy Intermediate Anaphylaxis Verified 08/20/21 10:48 soy [SOY] Allergy Intermediate HIVES Verified 08/20/21 10:48 Sulfa (Sulfonamide Allergy Intermediate HIVES Verified 08/20/21 10:48 Antibiotics) [SULFA (SULFONAMIDE ANTIBIOTICS)] sulfamethoxazole Allergy Intermediate HIVES Verified 08/20/21 10:48 [From BACTRIM] tetracycline [TETRACYCLINE] Allergy Intermediate HIVES Verified 08/20/21 10:48 tree and shrub pollen [TREE] Allergy Intermediate HIVES Verified 08/20/21 10:48 trimethoprim [From BACTRIM] Allergy Intermediate HIVES Verified 08/20/21 10:48 wheat [WHEAT] Allergy Intermediate HIVES Verified 08/20/21 10:48 chicken derived Allergy Mild Unknown Verified 08/20/21 10:48 pork derived (porcine) Allergy Mild Unknown Verified 08/20/21 10:48 clavulanic acid [Augmentin] Allergy Unknown Unknown Verified 08/20/21 10:48 mannitol [Reclast] Allergy Unknown Unknown Verified 08/20/21 10:48 zoledronic acid [Reclast] Allergy Unknown Unknown Verified 08/20/21 10:48 prednisone Allergy Rash Verified 08/20/21 10:48 shellfish derived Allergy Rash Verified 08/20/21 10:48 doxycycline AdvReac Severe Rash Verified 08/20/21 10:48 acetaminophen AdvReac Rash Verified 08/20/21 10:48 banana AdvReac Rash Verified 08/20/21 10:48 DUST Allergy Intermediate HIVES Uncoded 08/20/21 10:48 FRUIT Allergy Intermediate HIVES Uncoded 08/20/21 10:48 MADRIBON Allergy Intermediate HIVES Uncoded 08/20/21 10:48 VEGETABLES,FRESH Allergy Intermediate HIVES Uncoded 08/20/21 10:48 Ivp Dye- Omnipaque AdvReac Unknown rash Uncoded 08/20/21 10:48 Review of Systems Review of Systems: Constitutional: No Fever, No Chills Eyes: No Eye Pain, No Swelling, No Redness Cardiovascular: No Chest Pain, No SOB, No Orthopnea,+Edema Respiratory: No Cough, No Sputum, No Wheezing, No dyspnea Gastrointestinal: No Nausea, No Vomiting, No Diarrhea, No abdominal Pain Musculoskeletal: + joint pain, No Myalgias Skin: No Skin Lesions, No rash Neuro: No Weakness, No Numbness, No Dizziness, No Headache Psych:+Anxiety/Panic, No Depression Heme/Lymph: No Bruising, No Lymphadenopathy Endocrine: No Polyuria, No Polydipsia PMFSH Past Medical History Medical History Dysphagia Fibromyalgia GERD (gastroesophageal reflux disease) Hx of sinusitis Left bundle branch block (LBBB) Lower extremity edema Osteoporosis Personal history of COVID-19 Skin cancer Skin cancer of forehead Surgical History History of appendectomy History of esophagogastroduodenoscopy (EGD) Hx of section Hx of colonoscopy Hx of hysterectomy Family History Family History Father Bladder cancer Social History Social History Alcohol intake: never Patient Tobacco Use Status: Never used Tobacco Use of substances other than those prescribed or required for medical reasons: No Advance Directives: Yes Advance Directives on File: Yes Advance Directives Date on File: 08/05/21 Physical Exam Vital Signs: Vital Signs: Last Vital Signs Temp 98.6 F 11/30/21 11:43 Pulse 98 11/30/21 11:43 Resp 20 11/30/21 11:43 BP 160/80 H 11/30/21 11:43 Pulse Ox 99 11/30/21 11:43 O2 Del Method 11/30/21 11:43 BMI result Body Mass Index 23.0 Appearance: Alert. Oriented X3. No acute distress. Eyes: Pupils equal, round and reactive to light. ENT: Pharynx normal. Neck: Normal inspection. Neck supple. CVS: Normal heart rate and rhythm. Pulses normal. Respiratory: No respiratory distress. Breath sounds normal. Abdomen: Soft and nontender. +BS x4 Skin: Skin warm and dry. Normal skin color. Normal skin turgor. No rashes. Extremities: right lateral and posterior ankle with erythema, swelling and warmth. normal ROM of the foot/ankle. 2+ DP pulses. Neuro: Oriented X 3. No motor deficit. No sensory deficit. Course Course Course Narrative: 76 yo female presents to the ER with 1 day of nontraumatic right lateral ankle redness and swelling. Exam and clinical presentation are consistnet with cellulitis. No evidence of septic joint with normal ROM. Not diabetic. No feve rs. Labs are reassuring with no leukocytosis. she is ambulating well with no antalgic gait. Her extensive list of allergies have been reviewed. She reports tolerance of oral linezolid in the past. She is allergic to cephalosporins, penicillins, fluoroquinolones, doxycycline, sulfa drugs. Given her cellulitis is most likely a strep or staph infection, will plan to prescribed linezolid for 10 days and have her closely monitor the area. She will follow-up with her primary care doctor this week. She was instructed to come back to the ER if she would develop any worsening erythema or other signs of infection. Stable for DC. MDM - Extremity (Nontraumatic) Lab Data Result diagrams: 11/30/21 08:37 11/30/21 08:37 Labs: Lab Results 11/30/21 11/30/21 Range/Units 08:37 08:37 WBC 4.9 (4.8-10.8) X10*3/uL RBC 4.98 (4.20-5.50) X10*6/uL Hgb 13.7 (12.0-16.0) g/dl Hct 40.9 (37.0-47.0) % MCV 82.1 (80.0-98.0) fL MCH 27.5 (27.0-33.0) pg MCHC 33.5 (31.0-35.0) g/dl RDW 14.2 (11.0-16.0) % Plt Count 221 (160-400) X10*3/uL MPV 10.0 (9.4-12.3) fL Immature Gran % (Auto) 0.4 (0.0-0.4) % Neut % (Auto) 63.8 (45-73) % Lymph % (Auto) 23.1 (20-40) % [place] % (Auto) 10.5 (2-11) % Eos % (Auto) 1.8 (0-4) % Baso % (Auto) 0.4 (0-2) % Lymph # (Auto) 1.1 L (1.2-4.9) X10*3/uL [place] # (Auto) 0.5 (0.1-1.2) X10*3/uL Eos # (Auto) 0.1 (0.0-0.4) X10*3/uL Baso # (Auto) 0.0 (0.0-0.2) X10*3/uL Abs Immat Gran (auto) 0.02 (0.00-0.03) X10*3/uL Absolute Neuts (auto) 3.1 (2.0-8.3) x10*3/uL Absolute Nucleated RBC 0.000 (0.0-0.012) X10*3/uL Nucleated RBC % (auto) 0.0 (0.0-0.2) /100WBC Sodium 139 (135-145) mmol/L Potassium 4.2 (3.3-5.1) mmol/L Chloride 106 (96-108) mmol/L Carbon Dioxide 24 (22-29) mmol/L Anion Gap 13 (12-20) BUN 7 L (9-16) mg/dL Creatinine 0.74 (0.5-1.4) mg/dL Estim Creat Clear Calc 45.5 Estimated GFR > 60 Random Glucose 121 H (60-115) mg/dL Calcium 9.1 (8.4-10.2) mg/dL Discharge Plan Discharge Clinical Impression: Cellulitis Patient Disposition: Home, Self-Care Instructions: Cellulitis (ED), Warm Compress or Soak (ED) Additional Instructions: Your lab workup today was unremarkable. Recommend starting the prescribed antibiotic as directed, complete the entire course. Elevate your ankle when possible. Use warm compresses to the area to help increase blood flow and fight the infect ion. If you have worsening pain, redness, swelling or any other concerning symptoms call your doctor or come back to the ER for further evaluation. Prescriptions: New linezolid 600 mg tablet 600 mg PO Q12H 10 Days Qty: 20 0RF No Action neomycin 500 mg tablet 1 g PO .COMPLEX Qty: 6 0RF Rx Instructions: 1 g PO; administer at 1 PM, 2 PM, and 11 PM the day prior to surgery calcium carbonate-vitamin D3 [Calcium + D] 600 mg-5 mcg (200 unit) Tablet 1 tab PO DAILY multivitamin with minerals Tablet 1 tab PO DAILY ibandronate 150 mg Tablet 150 mg PO QMONTH omeprazole 40 mg capsule,delayed release(DR/EC) 40 mg PO DAILY Interventions: ED Discharge Assessment Last Done: 11/30/21 13:06 Discharge Date/Time: 11/30/21 13:06
== END 2021-11-30 13:06 | disposition home or self-care (01) ==
PROVIDERS: Emergency Provider Student in an Organized Health Care Education/Training Program; PCP Family Medicine
DX: L03.115 Cellulitis of right lower limb (principal); M79.671 Pain in right foot
CPT/HCPCS: 36415; 73610; 80048; 85025; 99283; 99284

== ENCOUNTER 2021-12-01 07:58 | Emergency (ER) | payer MEDICARE, SELFPAY ==
[2021-12-01 08:20] VITALS: BP 140/72; PULSE 113; RESP 17; TEMP 37.3; O2SAT 94; BMI 23.0
--- NOTE | 2021-12-01 09:46 | ED.RECABL ---
HPI - Recheck/Abnormal Lab/Rx General Chief Complaint: Skin/Abscess/Foreign Body Stated Complaint: Cellulitis Time Seen by Provider: 12/01/21 09:16 Source: patient and family () Mode of arrival: ambulatory Limitations: no limitations History of Present Illness HPI narrative: 76-year-old female presenting to the ED with complaints of worsening cellulitis to the right foot despite being seen yesterday. She reports she went to her pharmacy and they did not have her antibiotic Linezolid 600mg although she did have the same antibiotic at home due to she had an infection last April and her hand therefore she took 1 pill last night. This morning she did not take any pills. She reports her pharmacy is open this morning so she can pick it up after she leaves here. She reports she returned today because the redness spread past the line that they trace yesterday. Although patient only took 1 pill. Patient has a past medical history of fibromyalgia, left bundle-branch block, osteoporosis, osteoarthritis, venous insufficiency, history of left hand cellulitis requiring admission at [facility] last year. She denies any fevers that she is aware of, chills, dizziness, headaches, neck pain/stiffness, chest pain or shortness of breath, dyspnea on exertion, orthopnea, nausea/vomiting/diarrhea, calf tenderness or any other symptoms complaints or concerns at this time. MD complaint: wound re-check Initial visit (ago): day(s) (Yesterday) Initial visit for: cellulitis Returns today for: cellulitis follow-up Symptoms since prior visit: worsening redness Associated symptoms: none Treatments prior to arrival: other (See above) Related Data Home Medications Medication Instructions Recorded Confirmed calcium carbonate 600 mg-vitamin 1 tab PO DAILY 07/31/21 07/31/21 D3 5 mcg (200 unit) tablet ibandronate 150 mg tablet 150 mg PO QMONTH 07/31/21 07/31/21 multivitamin with minerals 1 tab PO DAILY 07/31/21 07/31/21 omeprazole 40 mg capsule,delayed 40 mg PO DAILY 08/20/21 08/20/21 release Previous Rx's Medication Instructions Recorded neomycin 500 mg tablet 1 g PO .COMPLEX 3 doses #6 tabs 09/05/21 linezolid 600 mg tablet 600 mg PO Q12H 10 days #20 tabs 11/30/21 Allergies Allergy/AdvReac Type Severity Reaction Status Date / Time Iodinated Contrast Media Allergy Severe Rash Verified 08/20/21 10:48 [IV CONTRAST] amoxicillin [AMOXICILLIN] Allergy Intermediate HIVES Verified 08/20/21 10:48 aspirin [ASA] Allergy Intermediate HIVES Verified 08/20/21 10:48 atenolol [ATENOLOL] Allergy Intermediate HIVES Verified 08/20/21 10:48 caffeine [CAFFEINE] Allergy Intermediate HIVES Verified 08/20/21 10:48 cat dander [CATS] Allergy Intermediate HIVES Verified 08/20/21 10:48 cefprozil [From CEFZIL] Allergy Intermediate HIVES Verified 08/20/21 10:48 cephalexin [From KEFLEX] Allergy Intermediate HIVES Verified 08/20/21 10:48 clarithromycin [From BIAXIN] Allergy Intermediate HIVES Verified 08/20/21 10:48 clindamycin [From CLEOCIN] Allergy Intermediate HIVES Verified 08/20/21 10:48 codeine [CODEINE] Allergy Intermediate HIVES Verified 08/20/21 10:48 corn [CORN] Allergy Intermediate HIVES Verified 08/20/21 10:48 diphenhydramine Allergy Intermediate HIVES Verified 08/20/21 10:48 [From BENADRYL] dog dander [DOGS] Allergy Intermediate HIVES Verified 08/20/21 10:48 egg [EGGS] Allergy Intermediate HIVES Verified 08/20/21 10:48 erythromycin base Allergy Intermediate ANAPHYLAXIS Verified 08/20/21 10:48 [From ERYTHROCIN] fentanyl [FENTANYL] Allergy Intermediate HIVES Verified 08/20/21 10:48 ghosh [GHOSH] Allergy Intermediate HIVES Verified 08/20/21 10:48 horse dander [HORSE DANDER] Allergy Intermediate HIVES Verified 08/20/21 10:48 ibuprofen [IBUPROFEN] Allergy Intermediate HIVES Verified 08/20/21 10:48 insect venom [MOSQUITO] Allergy Intermediate HIVES Verified 08/20/21 10:48 latex [LATEX] Allergy Intermediate HIVES Verified 08/20/21 10:48 levofloxacin [From LEVAQUIN] Allergy Intermediate HIVES Verified 08/20/21 10:48 metoprolol [METOPROLOL] Allergy Intermediate HIVES Verified 08/20/21 10:48 mite-Dermatophagoides Allergy Intermediate HIVES Verified 08/20/21 10:48 farinae, florentin [DUST MITES] mold [MOLD] Allergy Intermediate HIVES Verified 08/20/21 10:48 nut - unspecified [NUTS] Allergy Intermediate HIVES Verified 08/20/21 10:48 Penicillins [PCN] Allergy Intermediate Anaphylaxis Verified 08/20/21 10:48 soy [SOY] Allergy Intermediate HIVES Verified 08/20/21 10:48 Sulfa (Sulfonamide Allergy Intermediate HIVES Verified 08/20/21 10:48 Antibiotics) [SULFA (SULFONAMIDE ANTIBIOTICS)] sulfamethoxazole Allergy Intermediate HIVES Verified 08/20/21 10:48 [From BACTRIM] tetracycline [TETRACYCLINE] Allergy Intermediate HIVES Verified 08/20/21 10:48 tree and shrub pollen [TREE] Allergy Intermediate HIVES Verified 08/20/21 10:48 trimethoprim [From BACTRIM] Allergy Intermediate HIVES Verified 08/20/21 10:48 wheat [WHEAT] Allergy Intermediate HIVES Verified 08/20/21 10:48 chicken derived Allergy Mild Unknown Verified 08/20/21 10:48 pork derived (porcine) Allergy Mild Unknown Verified 08/20/21 10:48 clavulanic acid [Augmentin] Allergy Unknown Unknown Verified 08/20/21 10:48 mannitol [Reclast] Allergy Unknown Unknown Verified 08/20/21 10:48 zoledronic acid [Reclast] Allergy Unknown Unknown Verified 08/20/21 10:48 prednisone Allergy Rash Verified 08/20/21 10:48 shellfish derived Allergy Rash Verified 08/20/21 10:48 doxycycline AdvReac Severe Rash Verified 08/20/21 10:48 acetaminophen AdvReac Rash Verified 08/20/21 10:48 banana AdvReac Rash Verified 08/20/21 10:48 DUST Allergy Intermediate HIVES Uncoded 08/20/21 10:48 FRUIT Allergy Intermediate HIVES Uncoded 08/20/21 10:48 MADRIBON Allergy Intermediate HIVES Uncoded 08/20/21 10:48 VEGETABLES,FRESH Allergy Intermediate HIVES Uncoded 08/20/21 10:48 Ivp Dye- Omnipaque AdvReac Unknown rash Uncoded 08/20/21 10:48 Review of Systems Review of Systems: Constitutional : Denies history of same, Denies any other sites involved, Denies IV drug use, Denies history of MRSA, Denies swollen glands, Denies injury, Denies Fever, Denies Chills, No Sig Pain, Denies Systemic symptoms Cardiovascular : No Chest Pain, No SOB Respiratory : No Dyspnea Gastrointestinal : No abdominal pain Musculoskeletal : No Joint Swelling Skin : + cellulitis to right foot, No abscess, No skin laceration, No Foreign bodies, Denies bites, Denies discharge, Neuro : No Weakness, No Numbness/tingling Psych : No SI/HI/thoughts of self injury Yes all other systems are reviewed and are negative [facility] [place] Past Medical History Attestation statement: The following information was validated with the patient. Source: old records reviewed, obtained from family and nursing notes reviewed Medical History Dysphagia Fibromyalgia GERD (gastroesophageal reflux disease) Hx of sinusitis Left bundle branch block (LBBB) Lower extremity edema Osteoporosis Personal history of COVID-19 Skin cancer Skin cancer of forehead Surgical History History of appendectomy History of esophagogastroduodenoscopy (EGD) Hx of section Hx of colonoscopy Hx of hysterectomy Family History Family History Father Bladder cancer Social History Social History Alcohol intake: never Patient Tobacco Use Status: Never used Tobacco Advance Directives: Yes Advance Directives on File: Yes Advance Directives Date on File: 08/05/21 Physical Exam Vital Signs: Vital Signs: Last Vital Signs Temp 99.1 F 12/01/21 08:20 Pulse 113 H 12/01/21 08:20 Resp 17 12/01/21 08:20 BP 140/72 H 12/01/21 08:20 Pulse Ox 94 12/01/21 08:20 O2 Del Method 12/01/21 08:20 BMI result Body Mass Index 23.0 vital signs have been reviewed as normal and appeared to be correct. Blood pressure normal Heart rate normal. Respiration rate normal. Temperature normal. Oxygen saturation normal. Appearance: Alert. Oriented X3. No acute distress. Head: Normal external exam. Normocephalic. Atraumatic. Eyes: PERRLA. EOMI. Conjunctiva and sclera normal. Eyelids normal. ENT: Pharynx normal. Uvula midline. Moist mucous membranes. Neck: Normal inspection. Neck supple. FROM. CVS: Normal heart rate and rhythm. Respiratory: No respiratory distress. Painless inspiration. Skin: Skin warm and dry. Normal skin color. Normal skin turgor. To right foot on the dorsal/lateral and posterior medial aspect of the foot patient has moderate erythema/soft tissue swelling/tenderness palpation and warm to touch consistent with cellulitis infection. There is no actual streaking at this time the erythema did past the tracking line that they mian for her yesterday only mildly. No streaking noted at this time. No signs of abscesses at this time. No additional rashes/lesions/lacerations noted. Extremities: No lower extremity edema. Extremities exhibit normal range of motion. Extremities nontender. Neuro: Oriented X 3. No motor deficit. No sensory deficit. Reflexes normal. Normal steady gait. No focal neuro deficits noted. Vascular: + radial pulses/+ 2 distal pedal pulses/+2 dorsalis pedis b/l. Normal cap refill. No cyanosis noted to upper extremity nails and lower extremity toes nails. Course Course Course Narrative: Patient was seen yesterday was given antibiotics is 100 mg of Linezoid every 12 hours for 10 days although patient was unable to fill it although she did have the same prescription at home due to a prior infection last year she took 1 dose last night and she returned today due to worsening redness. I discussed this case with Dr. Lu and TERRY Blackwood the who actually seen the patient yesterday and they are reporting that they do not believe the patient meets admission criteria at this time and we do not believe she needs any labs due to her labs were normal yesterday and she only took 1 dose of antibiotic therefore we explained to the patient that she needs to take at least 48 hours of antibiotic before returning because the infection will get worse before it gets better we also placed her in an Steven wrap and ortho shoe and instructed her to return in 48 hours if symptoms worsen and to continue taking her antibiotics. I also explained her she should potato picker the antibiotics that she can have a full course and that she should never have any leftover antibiotics. She denies any fevers, chills or any other symptoms related to this. She is afebrile at this time she denies taking any Motrin or Tylenol today. She understand this and agrees with the plan. at bedside. MDM - Recheck/Abnormal Lab/Rx Medical Records Attestation: I reviewed the patient's medical records. Procedures Orthopedic Splinting/Casting Injury #1: Side: right Lower Extremity Injury Location: ankle, foot and toe Lower Extremity Immobilizer: post-op shoe and Steven wrap Discharge Plan Discharge Clinical Impression: Cellulitis Patient Disposition: Home, Self-Care Instructions: Cellulitis (ED), Warm Compress or Soak (ED) Additional Instructions: Please take at least 48 hours of antibiotics or at least 4-5 pills due to the infection will get worse before it gets better. If he develops any fevers or worsening symptoms then you can return sooner than 48 hours. Prescriptions: No Action neomycin 500 mg tablet 1 g PO .COMPLEX Qty: 6 0RF Rx Instructions: 1 g PO; administer at 1 PM, 2 PM, and 11 PM the day prior to surgery linezolid 600 mg tablet 600 mg PO Q12H 10 Days Qty: 20 0RF calcium carbonate-vitamin D3 [Calcium + D] 600 mg-5 mcg (200 unit) Tablet 1 tab PO DAILY multivitamin with minerals Tablet 1 tab PO DAILY ibandronate 150 mg Tablet 150 mg PO QMONTH omeprazole 40 mg capsule,delayed release(DR/EC) 40 mg PO DAILY Referrals: Gaye Giang MD [Primary Care Provider] - 2 days (recheck cellulitis)
== END 2021-12-01 10:00 | disposition home or self-care (01) ==
PROVIDERS: Emergency Provider Student in an Organized Health Care Education/Training Program; PCP Family Medicine
DX: L03.115 Cellulitis of right lower limb (principal)
CPT/HCPCS: 99283

== ENCOUNTER 2021-12-03 07:28 | Inpatient (IN) | payer MEDICARE, SELFPAY ==
[2021-12-03] VITALS (8 sets, daily range): BP systolic 111–143; BP diastolic 55–75; PULSE 77–105; RESP 16–20; TEMP 36.2–37.2; O2SAT 97–99; BMI 23.0
--- NOTE | ~2021-12-03 | US_ITS ---
EXAMINATION: US VENOUS ULTRASOUND WITH DOPPLER LOWER EXTREMITY, RIGHT CLINICAL INFORMATION: Right lower extremity swelling. COMPARISON: None TECHNIQUE: Ultrasound of the deep veins is performed from the hip to the calf with compression sonography and color and pulse Doppler assessment. Spectral analysis with color-flow imaging is performed. FINDINGS: There is normal venous compression and respiratory variation and augmented flow. The visualized common femoral vein, superficial femoral vein, profunda femoral vein, popliteal vein, and the trifurcation region shows no evidence of deep venous thrombosis. No right popliteal cyst. Mild to moderate subcutaneous edema in the right calf. If the patient's symptoms persist, followup ultrasound in 5 days 7 days might be of value to exclude proximal propagation from a non-visualized calf vein. US/US venous duplex LE RT IMPRESSION: 1. No evidence for deep venous thrombosis in the visualized veins of the right lower extremity. 2. Mild to moderate subcutaneous edema in the right calf.
--- NOTE | 2021-12-03 09:04 | ED_ITS ---
HPI - Extremity Problem General Chief complaint: Extremity Problem Stated complaint: Cellulitis Time Seen by Provider: 12/03/21 08:39 Source: patient and family ( at bedside ) Mode of arrival: ambulatory Limitations: no limitations History of Present Illness HPI Narrative: 76-year-old female with a past medical history of fibromyalgia, left bundle- branch block, osteoporosis, osteoarthritis, venous insufficiency an a history of a left hand cellulitis requiring admission at [facility] last year for IV antibi otics presenting to the ED with her at bedside for her 3rd visit for cellulitis to her right foot that is now worsening despite being on Linezoid 600mg q12h antibiotics since the night time on 11/30/2021. Patient was seen here on 11/30/2021 and was discharged with Linezoid 600mg q12h although the pharmacy was closed when she went to picker and packer the prescription therefore she went home and she noticed that she still had Linezoid 600mg q12h from her last admission at [facility] when she had the hand cellulitis therefore she took 1 dose then in the morning she woke up and she felt like the swelling/redness was worse therefore she came here for further evaluation treatment. I actually seen the patient and had Dr. Lu re-evaluate the patient myself and at that time myself, TERRY Blackwood and Dr. Lu felt that the redness was mildly worse although she only took 1 antibiotic therefore we placed an Steven wrap and sent her home and explained to her that she should wait at least 24-48 hours before returning. Patient and at bedside reports that they did this and the redness is still worsening therefore they came here for further evaluation treatment. She denies any fevers, chills, dizziness, headaches, neck pain/stiffness, trouble swallowing or breathing, chest pain or shortness of breath, dyspnea on exertion, orthopnea, palpitations, paresthesias, recent falls or trauma, recent immobilization or surgery, history of cancer DVT or PE, rashes or any other symptoms complaints or concerns at this time. MD Complaint: extremity pain and extremity swelling Onset (ago): day(s) (4-5 days ) Pain Consistency: constant Location: right Quality: aching Radiation: proximal Relieving factors: nothing Exacerbating factors: palpation Associated symptoms: denies other symptoms Related Data Home Medications Medication Instructions Recorded Confirmed calcium carbonate 600 mg-vitamin 1 tab PO DAILY 07/31/21 12/03/21 D3 5 mcg (200 unit) tablet epinephrine 0.3 mg/0.3 mL 0.3 ea IM ONCE PRN Anaphylaxis 12/03/21 12/03/21 injection, auto-injector omeprazole 20 mg tablet,delayed 20 mg PO DAILY 12/03/21 12/03/21 release Allergies Allergy/AdvReac Type Severity Reaction Status Date / Time Iodinated Contrast Media Allergy Severe Rash Verified 08/20/21 10:48 [IV CONTRAST] amoxicillin [AMOXICILLIN] Allergy Intermediate HIVES Verified 08/20/21 10:48 aspirin [ASA] Allergy Intermediate HIVES Verified 08/20/21 10:48 atenolol [ATENOLOL] Allergy Intermediate HIVES Verified 08/20/21 10:48 caffeine [CAFFEINE] Allergy Intermediate HIVES Verified 08/20/21 10:48 cat dander [CATS] Allergy Intermediate HIVES Verified 08/20/21 10:48 cefprozil [From CEFZIL] Allergy Intermediate HIVES Verified 08/20/21 10:48 cephalexin [From KEFLEX] Allergy Intermediate HIVES Verified 08/20/21 10:48 clarithromycin [From BIAXIN] Allergy Intermediate HIVES Verified 08/20/21 10:48 clindamycin [From CLEOCIN] Allergy Intermediate HIVES Verified 08/20/21 10:48 codeine [CODEINE] Allergy Intermediate HIVES Verified 08/20/21 10:48 corn [CORN] Allergy Intermediate HIVES Verified 08/20/21 10:48 diphenhydramine Allergy Intermediate HIVES Verified 08/20/21 10:48 [From BENADRYL] dog dander [DOGS] Allergy Intermediate HIVES Verified 08/20/21 10:48 egg [EGGS] Allergy Intermediate HIVES Verified 08/20/21 10:48 erythromycin base Allergy Intermediate ANAPHYLAXIS Verified 08/20/21 10:48 [From ERYTHROCIN] fentanyl [FENTANYL] Allergy Intermediate HIVES Verified 08/20/21 10:48 ghosh [GHOSH] Allergy Intermediate HIVES Verified 08/20/21 10:48 horse dander [HORSE DANDER] Allergy Intermediate HIVES Verified 08/20/21 10:48 ibuprofen [IBUPROFEN] Allergy Intermediate HIVES Verified 08/20/21 10:48 insect venom [MOSQUITO] Allergy Intermediate HIVES Verified 08/20/21 10:48 latex [LATEX] Allergy Intermediate HIVES Verified 08/20/21 10:48 levofloxacin [From LEVAQUIN] Allergy Intermediate HIVES Verified 08/20/21 10:48 metoprolol [METOPROLOL] Allergy Intermediate HIVES Verified 08/20/21 10:48 mite-Dermatophagoides Allergy Intermediate HIVES Verified 08/20/21 10:48 farinae, florentin [DUST MITES] mold [MOLD] Allergy Intermediate HIVES Verified 08/20/21 10:48 nut - unspecified [NUTS] Allergy Intermediate HIVES Verified 08/20/21 10:48 Penicillins [PCN] Allergy Intermediate Anaphylaxis Verified 08/20/21 10:48 soy [SOY] Allergy Intermediate HIVES Verified 08/20/21 10:48 Sulfa (Sulfonamide Allergy Intermediate HIVES Verified 08/20/21 10:48 Antibiotics) [SULFA (SULFONAMIDE ANTIBIOTICS)] sulfamethoxazole Allergy Intermediate HIVES Verified 08/20/21 10:48 [From BACTRIM] tetracycline [TETRACYCLINE] Allergy Intermediate HIVES Verified 08/20/21 10:48 tree and shrub pollen [TREE] Allergy Intermediate HIVES Verified 08/20/21 10:48 trimethoprim [From BACTRIM] Allergy Intermediate HIVES Verified 08/20/21 10:48 wheat [WHEAT] Allergy Intermediate HIVES Verified 08/20/21 10:48 chicken derived Allergy Mild Unknown Verified 08/20/21 10:48 pork derived (porcine) Allergy Mild Unknown Verified 08/20/21 10:48 clavulanic acid [Augmentin] Allergy Unknown Unknown Verified 08/20/21 10:48 mannitol [Reclast] Allergy Unknown Unknown Verified 08/20/21 10:48 zoledronic acid [Reclast] Allergy Unknown Unknown Verified 08/20/21 10:48 prednisone Allergy Rash Verified 08/20/21 10:48 shellfish derived Allergy Rash Verified 08/20/21 10:48 doxycycline AdvReac Severe Rash Verified 08/20/21 10:48 acetaminophen AdvReac Rash Verified 08/20/21 10:48 banana AdvReac Rash Verified 08/20/21 10:48 DUST Allergy Intermediate HIVES Uncoded 08/20/21 10:48 FRUIT Allergy Intermediate HIVES Uncoded 08/20/21 10:48 MADRIBON Allergy Intermediate HIVES Uncoded 08/20/21 10:48 VEGETABLES,FRESH Allergy Intermediate HIVES Uncoded 08/20/21 10:48 Ivp Dye- Omnipaque AdvReac Unknown rash Uncoded 08/20/21 10:48 Review of Systems Review of Systems: Constitutional : Denies any other sites involved, Denies IV drug use, Denies history of MRSA, Denies swollen glands, Denies injury, D enies Fever, Denies Chills, + Sig Pain, Denies Systemic symptoms Cardiovascular : No Chest Pain, No SOB Respiratory : No Dyspnea Gastrointestinal : No abdominal pain Musculoskeletal : No Joint Swelling Skin : + erythema/pain to RLE, No abscess, No skin laceration, No Foreign bodies, Denies bites, Denies discharge, Neuro : No Weakness, No Numbness/tingling Psych : No SI/HI/thoughts of self injury Yes all other systems are reviewed and are negative [facility] Past Medical History Attestation statement: The following information was validated with the patient. Source: old records reviewed, obtained from family and nursing notes reviewed Medical History Dysphagia Fibromyalgia GERD (gastroesophageal reflux disease) Hx of sinusitis Left bundle branch block (LBBB) Lower extremity edema Osteoporosis Personal history of COVID-19 Skin cancer Skin cancer of forehead Surgical History History of appendectomy History of esophagogastroduodenoscopy (EGD) Hx of section Hx of colonoscopy Hx of hysterectomy Family History Family History Father Bladder cancer Social History Social History Alcohol intake: never Patient Tobacco Use Status: Never used Tobacco Advance Directives: Yes Advance Directives on File: Yes Advance Directives Date on File: 08/05/21 Physical Exam Vital Signs: Vital Signs: Last Vital Signs Temp 98.2 F 12/03/21 10:37 Pulse 93 12/03/21 10:37 Resp 19 12/03/21 10:37 BP 139/70 12/03/21 10:37 Pulse Ox 97 12/03/21 10:37 O2 Del Method 12/03/21 10:37 BMI result Body Mass Index 23.0 vital signs have been reviewed as normal and appeared to be correct. Blood pressure normal. Heart rate normal. Respiration rate normal. Temperature normal. Oxygen saturation normal. Appearance: Alert. Oriented X3. No acute distress. Head: Normal external exam. Normocephalic. Atraumatic. Eyes: PERRLA. EOMI. Conjunctiva and sclera normal. Eyelids normal. ENT: Pharynx normal. Uvula midline. Moist mucous membranes. No lesions/ulcerations or masses noted on the tongue. Normal voice. No trismus noted. No drooling noted. No muffled voice noted. Neck: Normal inspection. Neck supple. FROM. No adenopathy. Thyroid Normal. No meningeal signs. CVS: Normal heart rate and rhythm. Heart sound normal. Pulses normal throughout. No murmurs/rales/gallops. Respiratory: No respiratory distress. Painless inspiration. Breath sounds normal. No wheezes/rales/rhonchi noted. Chest nontender. No accessory muscle usage noted or decreased air movement noted. Abdomen: Soft and nontender. Bowel sounds normal in all 4 quadrants. No distention noted. No organomegaly noted. No visible injury noted. Back: Full range of motion noted. Skin: Skin warm and dry. Normal skin color. Normal skin turgor. No additional rashes/lesions/lacerations noted. Extremities: No lower extremity edema. No calf tenderness is noted. Extremities exhibit normal range of motion and nontender. Neuro: Oriented X 3. No motor deficit. No sensory deficit. Reflexes normal. Normal steady gait. No focal neuro deficits noted. CN's II-XII intact bilaterally? Vascular: + radial pulses/+ 2 distal pedal pulses/+2 dorsalis pedis b/l. Normal cap refill. No cyanosis noted to upper extremity nails and lower extremity toes nails. Course Course Course Narrative: 8:45am 76-year-old female c PMHx of fibromyalgia, left bundle-branch block, osteoporosis, osteoarthritis, venous insufficiency an a history of a left hand cellulitis requiring admission at [facility] last year for IV antibiotics presenting to the ED with her at bedside for her 3rd visit for cellulitis to her right foot that is now worsening despite being on Linezoid 600mg q12h antibiotics since the night time on 11/30/2021. Patient was seen here on 11/30/2021 and was discharged with Linezoid 600mg q12h although the pharmacy was closed when she went to picker and packer the prescription therefore she went home and she noticed that she still had Linezoid 600mg q12h from her last admission at [facility] when she had the hand cellulitis therefore she took 1 dose then in the morning she woke up and she felt like the swelling/redness was worse therefore she came here for further evaluation treatment. I actually seen the patient and had Dr. Lu re-evaluate the patient myself and at that time myself, uJdi syed PA-C and Dr. Lu felt that the redness was mildly worse although she only took 1 antibiotic therefore we placed an Steven wrap and sent her home and explained to her that she should wait at least 24-48 hours before returning. Patient and at bedside reports that they did this and the redness is still worsening therefore they came here for further evaluation treatment. Plan: Will obtain labs, blood cultures, lactic acid, venous duplex ultrasound of right lower extremity. Provide a L IV fluids and IV vanco and re-evaluate plan to admit. Reevaluation(s) Reevaluation #1: - labs returned and all labs are within normal limits. Lactic acid negative. Patient negative for COVID. Venous duplex ultrasound of right lower extremity negative for DVT. - therefore at this time will admit for IV antibiotics for right lower extremity cellulitis. Patient and at bedside understand agree this plan. Dis cussed this case with Ramila Stuart NP. Time: 10:34 [facility] - Extremity (Nontraumatic) Medical Records Attestation: I reviewed the patient's medical records. Lab Data Attestation: I reviewed the patient's lab results. Result diagrams: 12/03/21 09:20 12/03/21 09:20 Labs: Lab Results 12/03/21 12/03/21 12/03/21 Range/Units 09:19 09:20 09:20 WBC 5.4 (4.8-10.8) X10*3/uL RBC 4.90 (4.20-5.50) X10*6/uL Hgb 13.6 (12.0-16.0) g/dl Hct 40.3 (37.0-47.0) % MCV 82.2 (80.0-98.0) fL MCH 27.8 (27.0-33.0) pg MCHC 33.7 (31.0-35.0) g/dl RDW 14.1 (11.0-16.0) % Plt Count 223 (160-400) X10*3/uL MPV 10.4 (9.4-12.3) fL Immature Gran % (Auto) 0.4 (0.0-0.4) % Neut % (Auto) 72.3 (45-73) % Lymph % (Auto) 17.8 L (20-40) % [place] % (Auto) 7.1 (2-11) % Eos % (Auto) 1.7 (0-4) % Baso % (Auto) 0.7 (0-2) % Lymph # (Auto) 1.0 L (1.2-4.9) X10*3/uL [place] # (Auto) 0.4 (0.1-1.2) X10*3/uL Eos # (Auto) 0.1 (0.0-0.4) X10*3/uL Baso # (Auto) 0.0 (0.0-0.2) X10*3/uL Abs Immat Gran (auto) 0.02 (0.00-0.03) X10*3/uL Absolute Neuts (auto) 3.9 (2.0-8.3) x10*3/uL Absolute Nucleated RBC 0.000 (0.0-0.012) X10*3/uL Nucleated RBC % (auto) 0.0 (0.0-0.2) /100WBC ESR 12 (0-20) MM/HR PT (10.0-13.1) SEC INR (0.9-1.1) Sodium (135-145) mmol/L Potassium (3.3-5.1) mmol/L Chloride (96-108) mmol/L Carbon Dioxide (22-29) mmol/L Anion Gap (12-20) BUN (9-16) mg/dL Creatinine (0.5-1.4) mg/dL Estim Creat Clear Calc Estimated GFR Random Glucose (60-115) mg/dL Lactic Acid 1.2 (0.5-2.0) mmol/L Calcium (8.4-10.2) mg/dL Magnesium (1.6-2.6) mg/dL Total Bilirubin (0.0-1.0) mg/dL AST (5-31) U/L ALT (0-31) U/L Alkaline Phosphatase (39-117) U/L C-Reactive Protein (< or = 0.50) mg/dL B-Natriuretic Peptide (<100) pg/mL Total Protein (6.5-8.0) g/dL Albumin (3.5-5.0) g/dL COVID-19 (TERRANCE) (Negative) COVID-19 Clin Com 12/03/21 12/03/21 12/03/21 Range/Units 09:20 09:20 09:20 WBC (4.8-10.8) X10*3/uL RBC (4.20-5.50) X10*6/uL Hgb (12.0-16.0) g/dl Hct (37.0-47.0) % MCV (80.0-98.0) fL MCH (27.0-33.0) pg MCHC (31.0-35.0) g/dl RDW (11.0-16.0) % Plt Count (160-400) X10*3/uL MPV (9.4-12.3) fL Immature Gran % (Auto) (0.0-0.4) % Neut % (Auto) (45-73) % Lymph % (Auto) (20-40) % [place] % (Auto) (2-11) % Eos % (Auto) (0-4) % Baso % (Auto) (0-2) % Lymph # (Auto) (1.2-4.9) X10*3/uL [place] # (Auto) (0.1-1.2) X10*3/uL Eos # (Auto) (0.0-0.4) X10*3/uL Baso # (Auto) (0.0-0.2) X10*3/uL Abs Immat Gran (auto) (0.00-0.03) X10*3/uL Absolute Neuts (auto) (2.0-8.3) x10*3/uL Absolute Nucleated RBC (0.0-0.012) X10*3/uL Nucleated RBC % (auto) (0.0-0.2) /100WBC ESR (0-20) MM/HR PT 10.7 (10.0-13.1) SEC INR 0.9 (0.9-1.1) Sodium 139 (135-145) mmol/L Potassium 5.0 (3.3-5.1) mmol/L Chloride 105 (96-108) mmol/L Carbon Dioxide 24 (22-29) mmol/L Anion Gap 15 (12-20) BUN 9 (9-16) mg/dL Creatinine 0.80 (0.5-1.4) mg/dL Estim Creat Clear Calc 42.1 Estimated GFR > 60 Random Glucose 102 (60-115) mg/dL Lactic Acid (0.5-2.0) mmol/L Calcium 8.9 (8.4-10.2) mg/dL Magnesium 2.2 (1.6-2.6) mg/dL Total Bilirubin 0.7 (0.0-1.0) mg/dL AST 15 (5-31) U/L ALT 12 (0-31) U/L Alkaline Phosphatase 81 (39-117) U/L C-Reactive Protein 0.33 (< or = 0.50) mg/dL B-Natriuretic Peptide 100 (<100) pg/mL Total Protein 6.5 (6.5-8.0) g/dL Albumin 4.0 (3.5-5.0) g/dL COVID-19 (TERRANCE) (Negative) COVID-19 Clin Com 12/03/21 Range/Units 09:21 WBC (4.8-10.8) X10*3/uL RBC (4.20-5.50) X10*6/uL Hgb (12.0-16.0) g/dl Hct (37.0-47.0) % MCV (80.0-98.0) fL MCH (27.0-33.0) pg MCHC (31.0-35.0) g/dl RDW (11.0-16.0) % Plt Count (160-400) X10*3/uL MPV (9.4-12.3) fL Immature Gran % (Auto) (0.0-0.4) % Neut % (Auto) (45-73) % Lymph % (Auto) (20-40) % [place] % (Auto) (2-11) % Eos % (Auto) (0-4) % Baso % (Auto) (0-2) % Lymph # (Auto) (1.2-4.9) X10*3/uL [place] # (Auto) (0.1-1.2) X10*3/uL Eos # (Auto) (0.0-0.4) X10*3/uL Baso # (Auto) (0.0-0.2) X10*3/uL Abs Immat Gran (auto) (0.00-0.03) X10*3/uL Absolute Neuts (auto) (2.0-8.3) x10*3/uL Absolute Nucleated RBC (0.0-0.012) X10*3/uL Nucleated RBC % (auto) (0.0-0.2) /100WBC ESR (0-20) MM/HR PT (10.0-13.1) SEC INR (0.9-1.1) Sodium (135-145) mmol/L Potassium (3.3-5.1) mmol/L Chloride (96-108) mmol/L Carbon Dioxide (22-29) mmol/L Anion Gap (12-20) BUN (9-16) mg/dL Creatinine (0.5-1.4) mg/dL Estim Creat Clear Calc Estimated GFR Random Glucose (60-115) mg/dL Lactic Acid (0.5-2.0) mmol/L Calcium (8.4-10.2) mg/dL Magnesium (1.6-2.6) mg/dL Total Bilirubin (0.0-1.0) mg/dL AST (5-31) U/L ALT (0-31) U/L Alkaline Phosphatase (39-117) U/L C-Reactive Protein (< or = 0.50) mg/dL B-Natriuretic Peptide (<100) pg/mL Total Protein (6.5-8.0) g/dL Albumin (3.5-5.0) g/dL COVID-19 (TERRANCE) Negative (Negative) COVID-19 Clin Com See Note Imaging Data Venous duplex ultrasound of right lower extremity: Attestation: I personally reviewed and interpreted this imaging study as follows: Radiologist's impression: FINDINGS: There is normal venous compression and respiratory variation and augmented flow. The visualized common femoral vein, superficial femoral vein, profunda femoral vein, popliteal vein, and the trifurcation region shows no evidence of deep venous thrombosis. No right popliteal cyst. Mild to moderate subcutaneous edema in the right calf. If the patient's symptoms persist, followup ultrasound in 5 days 7 days might be of value to exclude proximal propagation from a non-visualized calf vein. US/US venous duplex LE RT IMPRESSION: 1. No evidence for deep venous thrombosis in the visualized veins of the right lower extremity. 2. Mild to moderate subcutaneous edema in the right calf. Critical Care Time Critical Care Time Critical Care Time: Yes Total Critical Care Time: 60 Attestation: I personally attest to this time spent taking care of the patient Discharge Plan Discharge Clinical Impression: Cellulitis, Lower extremity edema Patient Disposition: Admitted As Inpatient
[2021-12-03 09:29] LABS: MANUAL DIFF FLAG NO
[2021-12-03 09:32] LABS: Basophils Percent Auto 0.7 % (0-2); Eosinophils Absolute Auto 0.1 X10*3/uL (0.0-0.4); Eosinophils Percent Auto 1.7 % (0-4); Hematocrit 40.3 % (37.0-47.0); Hemoglobin 13.6 g/dl (12.0-16.0); Imm Gran Abs Auto 0.02 X10*3/uL (0.00-0.03); Imm Gran Pct Auto 0.4 % (0.0-0.4); Lymphocytes Percent Auto 17.8 % (20-40); Mean Corpuscular HGB Conc 33.7 g/dl (31.0-35.0); Mean Corpuscular Hemoglobin 27.8 pg (27.0-33.0); Mean Corpuscular Volume 82.2 fL (80.0-98.0); Mean Platelet Volume 10.4 fL (9.4-12.3); Monocytes Absolute Auto 0.4 X10*3/uL (0.1-1.2); Monocytes Percent Auto 7.1 % (2-11); Neutrophils Absolute Auto 3.9 x10*3/uL (2.0-8.3); Neutrophils Percent Auto 72.3 % (45-73); Platelet Count 223 X10*3/uL (160-400); Red Cell Distribution Width 14.1 % (11.0-16.0); White Blood Count 5.4 X10*3/uL (4.8-10.8)
[2021-12-03 09:36] LABS: INTERNATIONAL NORM RATIO 0.9 (0.9-1.1); Prothrombin Time 10.7 SEC (10.0-13.1)
[2021-12-03 09:40] LABS: Lactic Acid 1.2 mmol/L (0.5-2.0)
[2021-12-03 09:45] LABS: Alanine Aminotransferase 12 U/L (0-31); Alkaline Phosphatase 81 U/L (39-117); Anion Gap 15 (12-20); Aspartate Amino Transferase 15 U/L (5-31); Bilirubin Total 0.7 mg/dL (0.0-1.0); Blood Urea Nitrogen 9 mg/dL (9-16); C Reactive Protein 0.33 mg/dL (< or = 0.50); Calcium 8.9 mg/dL (8.4-10.2); Carbon Dioxide 24 mmol/L (22-29); Chloride 105 mmol/L (96-108); Creatinine Clr Calc Pharmacy 42.1; Estimated Glomerular Filt Rate > 60; Glucose Random 102 mg/dL (60-115); Magnesium 2.2 mg/dL (1.6-2.6); Sodium 139 mmol/L (135-145); Total Protein 6.5 g/dL (6.5-8.0)
[2021-12-03] MEDS: vancomycin HCL 1,250 MG in 0.9 % Sodium Chloride 250 ML 166.67 MG IV (09:48)
[2021-12-03 09:50] LABS: B Type Natriuretic Peptide 100 pg/mL (<100)
[2021-12-03 09:50] LABS: COVID-19 Test Negative (Negative); IDNOW Serial# 16C4AD1C
[2021-12-03 10:19] LABS: Erythrocyte Sedimentation Rate 12 MM/HR (0-20)
--- NOTE | 2021-12-03 11:12 | P.HPHOSP_ITS ---
History of Present Illness Date of Service: 12/03/21 Chief Complaint: RLE swelling, redness, pain This is a 76 year old female with muliple drug allergies and a PMH as outlined below who presents to [facility] ED with complaints of worsening RLE erythema, edema and pain despite the use of PO zyvox for several days. The patient, from whom this is the 3rd ED visit for the same issue over the last 5 days, states that she noticed some lateral ankle redness about 5 days prior to admission. She reports this progressed with significant erythema and eventual pain with limited weight bearing status due to pain. She reports she came to the ED over the weekend (Thursday), where she was prescribed PO zyvox. She returned again the next day, Thursday, as the symptoms did not improve. She had only taken 1 dose of the Zyvox between the two visits. She was instructed to comlpete several days of PO zyvox and return if not improved. She endorses taking the antibiotics over the last several days, but the pain, swelling and erythema continued to worsen and hence, she came to the ED. In the ED, work up reveals a negative venous doppler for DVT. She is afebrile and has no luekocytosis. On Exam, R ankle is significantly swollen. In light of her multiple allergies along with no improvement with >72 hours of PO zyvox, she will be admitted for further care. She has been given a dose of vancomcyin. Review of Systems Review of Systems: negative except [facility] Medical History Dysphagia Fibromyalgia GERD (gastroesophageal reflux disease) Hx of sinusitis Left bundle branch block (LBBB) Lower extremity edema Osteoporosis Personal history of COVID-19 Skin cancer Skin cancer of forehead Family History Father Bladder cancer Surgical History History of appendectomy History of esophagogastroduodenoscopy (EGD) Hx of section Hx of colonoscopy Hx of hysterectomy Social History Alcohol intake: never Patient Tobacco Use Status: Never used Tobacco Advance Directives: Yes Advance Directives on File: Yes Advance Directives Date on File: 08/05/21 Meds Allergies Allergy/AdvReac Type Severity Reaction Status Date / Time Iodinated Contrast Media Allergy Severe Rash Verified 08/20/21 10:48 [IV CONTRAST] amoxicillin [AMOXICILLIN] Allergy Intermediate HIVES Verified 08/20/21 10:48 aspirin [ASA] Allergy Intermediate HIVES Verified 08/20/21 10:48 atenolol [ATENOLOL] Allergy Intermediate HIVES Verified 08/20/21 10:48 caffeine [CAFFEINE] Allergy Intermediate HIVES Verified 08/20/21 10:48 cat dander [CATS] Allergy Intermediate HIVES Verified 08/20/21 10:48 cefprozil [From CEFZIL] Allergy Intermediate HIVES Verified 08/20/21 10:48 cephalexin [From KEFLEX] Allergy Intermediate HIVES Verified 08/20/21 10:48 clarithromycin [From BIAXIN] Allergy Intermediate HIVES Verified 08/20/21 10:48 clindamycin [From CLEOCIN] Allergy Intermediate HIVES Verified 08/20/21 10:48 codeine [CODEINE] Allergy Intermediate HIVES Verified 08/20/21 10:48 corn [CORN] Allergy Intermediate HIVES Verified 08/20/21 10:48 diphenhydramine Allergy Intermediate HIVES Verified 08/20/21 10:48 [From BENADRYL] dog dander [DOGS] Allergy Intermediate HIVES Verified 08/20/21 10:48 egg [EGGS] Allergy Intermediate HIVES Verified 08/20/21 10:48 erythromycin base Allergy Intermediate ANAPHYLAXIS Verified 08/20/21 10:48 [From ERYTHROCIN] fentanyl [FENTANYL] Allergy Intermediate HIVES Verified 08/20/21 10:48 ghosh [GHOSH] Allergy Intermediate HIVES Verified 08/20/21 10:48 horse dander [HORSE DANDER] Allergy Intermediate HIVES Verified 08/20/21 10:48 ibuprofen [IBUPROFEN] Allergy Intermediate HIVES Verified 08/20/21 10:48 insect venom [MOSQUITO] Allergy Intermediate HIVES Verified 08/20/21 10:48 latex [LATEX] Allergy Intermediate HIVES Verified 08/20/21 10:48 levofloxacin [From LEVAQUIN] Allergy Intermediate HIVES Verified 08/20/21 10:48 metoprolol [METOPROLOL] Allergy Intermediate HIVES Verified 08/20/21 10:48 mite-Dermatophagoides Allergy Intermediate HIVES Verified 08/20/21 10:48 farinae, florentin [DUST MITES] mold [MOLD] Allergy Intermediate HIVES Verified 08/20/21 10:48 nut - unspecified [NUTS] Allergy Intermediate HIVES Verified 08/20/21 10:48 Penicillins [PCN] Allergy Intermediate Anaphylaxis Verified 08/20/21 10:48 soy [SOY] Allergy Intermediate HIVES Verified 08/20/21 10:48 Sulfa (Sulfonamide Allergy Intermediate HIVES Verified 08/20/21 10:48 Antibiotics) [SULFA (SULFONAMIDE ANTIBIOTICS)] sulfamethoxazole Allergy Intermediate HIVES Verified 08/20/21 10:48 [From BACTRIM] tetracycline [TETRACYCLINE] Allergy Intermediate HIVES Verified 08/20/21 10:48 tree and shrub pollen [TREE] Allergy Intermediate HIVES Verified 08/20/21 10:48 trimethoprim [From BACTRIM] Allergy Intermediate HIVES Verified 08/20/21 10:48 wheat [WHEAT] Allergy Intermediate HIVES Verified 08/20/21 10:48 chicken derived Allergy Mild Unknown Verified 08/20/21 10:48 pork derived (porcine) Allergy Mild Unknown Verified 08/20/21 10:48 clavulanic acid [Augmentin] Allergy Unknown Unknown Verified 08/20/21 10:48 mannitol [Reclast] Allergy Unknown Unknown Verified 08/20/21 10:48 zoledronic acid [Reclast] Allergy Unknown Unknown Verified 08/20/21 10:48 prednisone Allergy Rash Verified 08/20/21 10:48 shellfish derived Allergy Rash Verified 08/20/21 10:48 doxycycline AdvReac Severe Rash Verified 08/20/21 10:48 acetaminophen AdvReac Rash Verified 08/20/21 10:48 banana AdvReac Rash Verified 08/20/21 10:48 DUST Allergy Intermediate HIVES Uncoded 08/20/21 10:48 FRUIT Allergy Intermediate HIVES Uncoded 08/20/21 10:48 MADRIBON Allergy Intermediate HIVES Uncoded 08/20/21 10:48 VEGETABLES,FRESH Allergy Intermediate HIVES Uncoded 08/20/21 10:48 Ivp Dye- Omnipaque AdvReac Unknown rash Uncoded 08/20/21 10:48 Active Medications: Current Medications Vancomycin HCl 750 mg/ Sodium (Chloride) 265 mls @ 265 mls/hr IV Q24H [facility] Pharmacy Consult (Consult Rx Vancomycin Dosing) 1 each MISCELLANE DAILY PRN PRN Reason: Consult order Pharmacy Consult (Consult Rx Perform Med Rec) 1 each MISCELLANE ONCE PRN PRN Reason: Consult order Pharmacy Consult (Consult Rx Vancomycin Dosing) 1 each MISCELLANE DAILY PRN PRN Reason: Consult order Home Medications Medication Instructions Recorded Confirmed Last Taken Type calcium carbonate 600 mg-vitamin 1 tab PO DAILY 07/31/21 12/03/21 Unknown History D3 5 mcg (200 unit) tablet epinephrine 0.3 mg/0.3 mL 0.3 ea IM ONCE PRN Anaphylaxis 12/03/21 12/03/21 Unknown History injection, auto-injector omeprazole 20 mg tablet,delayed 20 mg PO DAILY 12/03/21 12/03/21 Unknown History release Physical Exam Vital Signs and Narrative: Vital Signs: Last Vital Signs Temp 98.2 F 12/03/21 10:37 Pulse 93 12/03/21 10:37 Resp 19 12/03/21 10:37 BP 139/70 12/03/21 10:37 Pulse Ox 97 12/03/21 10:37 O2 Del Method 12/03/21 10:37 BMI result Body Mass Index 23.0 Const: Other: Constitutional - Awake and Alert, No apparent distress Eyes - PERRLA, EOMI Cardiovascular - S1S2, RRR, No edema Respiratory - Normal lung expansion, Normal respiratory effort, No respiratory distress, CTA bilaterally Gastrointestinal - NT / ND; +BS; No rebound or guarding - No CVA tenderness Extremities - see pics below Musculoskeletal - Normal inspection, normal ROM Skin - see pics below Neurological - Alert & oriented x3, No focal deficit Psychological - Appropriate affect Skin: Other: Results Labs CBC and Chem 7: 12/03/21 09:20 12/03/21 09:20 Labs: Laboratory Results - last 24 hr 12/03/21 12/03/21 12/03/21 09:19 09:20 09:20 MCV 82.2 MCH 27.8 MCHC 33.7 RDW 14.1 Plt Count 223 MPV 10.4 Immature Gran % (Auto) 0.4 Neut % (Auto) 72.3 Lymph % (Auto) 17.8 L [place] % (Auto) 7.1 Eos % (Auto) 1.7 Baso % (Auto) 0.7 Lymph # (Auto) 1.0 L [place] # (Auto) 0.4 Eos # (Auto) 0.1 Baso # (Auto) 0.0 Abs Immat Gran (auto) 0.02 Absolute Neuts (auto) 3.9 Absolute Nucleated RBC 0.000 Nucleated RBC % (auto) 0.0 ESR 12 PT INR Anion Gap Estim Creat Clear Calc Estimated GFR Random Glucose Lactic Acid 1.2 Calcium Magnesium Total Bilirubin AST ALT Alkaline Phosphatase C-Reactive Protein B-Natriuretic Peptide Total Protein Albumin COVID-19 (TERRANCE) COVID-19 [employer] Com 12/03/21 12/03/21 12/03/21 09:20 09:20 09:20 MCV MCH MCHC RDW Plt Count MPV Immature Gran % (Auto) Neut % (Auto) Lymph % (Auto) [place] % (Auto) Eos % (Auto) Baso % (Auto) Lymph # (Auto) [place] # (Auto) Eos # (Auto) Baso # (Auto) Abs Immat Gran (auto) Absolute Neuts (auto) Absolute Nucleated RBC Nucleated RBC % (auto) ESR PT 10.7 INR 0.9 Anion Gap 15 Estim Creat Clear Calc 42.1 Estimated GFR > 60 Random Glucose 102 Lactic Acid Calcium 8.9 Magnesium 2.2 Total Bilirubin 0.7 AST 15 ALT 12 Alkaline Phosphatase 81 C-Reactive Protein 0.33 B-Natriuretic Peptide 100 Total Protein 6.5 Albumin 4.0 COVID-19 (TERRANCE) COVID-19 [employer] Com 12/03/21 09:21 MCV MCH MCHC RDW Plt Count MPV Immature Gran % (Auto) Neut % (Auto) Lymph % (Auto) [place] % (Auto) Eos % (Auto) Baso % (Auto) Lymph # (Auto) [place] # (Auto) Eos # (Auto) Baso # (Auto) Abs Immat Gran (auto) Absolute Neuts (auto) Absolute Nucleated RBC Nucleated RBC % (auto) ESR PT INR Anion Gap Estim Creat Clear Calc Estimated GFR Random Glucose Lactic Acid Calcium Magnesium Total Bilirubin AST ALT Alkaline Phosphatase C-Reactive Protein B-Natriuretic Peptide Total Protein Albumin COVID-19 (TERRANCE) Negative COVID-19 Clin Com See Note Imaging Radiologist's Impressions: Impressions Venous Duplex 12/03/21 09:09 IMPRESSION: 1. No evidence for deep venous thrombosis in the visualized veins of the right lower extremity. 2. Mild to moderate subcutaneous edema in the right calf. Assessment and Plan (1) Cellulitis: Status: Acute Plan This is a 76 year old female with a PMH of multiple drug allergies, osteoporosis, fibromyalgia, GERD, dysphagia who presents to the ED for the 3rd time in less than 1 week of worsening RLE pain, swelling, redness. She has failed outpatient PO zyvox and will not be admitted for further treatment. 1. RLE cellulitis From foot to mid martinez Failed Zyvox start vancomcyin and consult ID -- has multiple allergies check urine acid -- wnl 2. GERD PPI 3. Osteoporosis continue vit d/calcium In light of the patient failing outpatient therapy with Zyvox, in conjunction with her multiple listed allergies -- I anticipate she will require an inpatient hospitalization which is likely to span at least 2 midnights. She will require expert consultation with ID and could possibly require a trial of multiple antibiotics. Hence, I do not feel that this can be management in a less acute setting as there will be an unacceptable risk of progression of her cellulitis to sepsis. Quality Stroke Does the patient have a stroke diagnosis?: No VTE Prior VTE?: No VTE Risk Level:: Medical - moderate - high VTE Device Contraindication: Treatment Not Tolerated VTE Drug Contraindication: N/A - Med Ordered
--- NOTE | 2021-12-03 11:15 | PHA.MEDREC ---
Pharmacy Consult ? Medication Reconciliation Pharmacy has completed the medication reconciliation. Spoke to patient laying in her bed.
[2021-12-03 11:21] LABS: Uric Acid 3.6 mg/dL (2.4-5.7)
--- NOTE | 2021-12-03 11:33 | PHA.PROG ---
Admission Date/Time: December 03, 2021 11:06 Indication: Cellulitis / Skin and soft tissue Weight in k.71 kg Adjusted body weight in K.71 [place] body weight in K.2 Obesity Dosing Indication % IBW: 1.19% Serum Creatinine - Last 168 Hours 12/03/21 09:20 Creatinine 0.80 Estimated CrCl and GFR - Last 168 Hours 12/03/21 09:20 Estim Creat Clear Calc 42.1 Estimated GFR > 60 Vancomycin Loading Dose: 1250mg ONCE Current Vancomycin Dosing Regimen: 1000mg Q24hr Vancomycin Monitoring using AUC goal of 400 - 600 range with trough as surrogate marker: 442 mg/L/hr Date and Time for next Vancomycin Level to be drawn: 12/05 @0700 Pharmacist Comments on Vancomycin Plan: RxinsTSCA modified model because patient is above 65 years old. Patient received a proper load of 1250mg in the ED. Due to patients age Q24hr is being used to allow proper clearing. Patients renal function is 0.80. Using rxinsight, dose choices was between 750mg or 1000mg Q24h. AUC for 750mg was lower than therapeutic at 335 mg/L/hr. Although given patients age, dosing should be used with precaution, however, patient must also be therapeutic. 1000mg Q24 was chosen with a predicted AUC of 437mg/L/hr. Level to be drawn on 12/05, right before 4th dose at 0700. Once level is obtained, will reassess for efficacy vs safety. Vancomycin dosing will take advantage of [employer] as a clinical decision support tool that uses Bayesian modeling to calculate individual patient's pharmacokinetic parameters and forecast the patient's drug concentration time course with the target goal AUC 24 range of 400 - 600 mg/L/hr.
--- NOTE | 2021-12-03 13:53 | PC.NURSE ---
Contact made to Clarissa from [facility] in regards to pt meals and allergies. Per dietary: Pt can have fish and turkey, Dairy products such as milk/cheese/ plain (Vanilla) yogurt. Pt is also able to take Ensure Clear with meals.
[2021-12-04 03:33] VITALS: BP 123/58; PULSE 75; RESP 18; TEMP 35.8; O2SAT 98
[2021-12-04] MEDS: Omeprazole 20 MG CAPSULE.DR PO (05:56)
[2021-12-04 06:45] LABS: Hematocrit 40.8 % (37.0-47.0); Hemoglobin 13.7 g/dl (12.0-16.0); Mean Corpuscular HGB Conc 33.6 g/dl (31.0-35.0); Mean Corpuscular Hemoglobin 27.3 pg (27.0-33.0); Mean Corpuscular Volume 81.4 fL (80.0-98.0); Mean Platelet Volume 10.5 fL (9.4-12.3); Platelet Count 233 X10*3/uL (160-400); Red Blood Count 5.01 X10*6/uL (4.20-5.50); Red Cell Distribution Width 14.3 % (11.0-16.0); White Blood Count 4.6 X10*3/uL (4.8-10.8)
[2021-12-04 06:52] LABS: Creatinine Clr Calc Pharmacy 44.3; Estimated Glomerular Filt Rate > 60
[2021-12-04 06:54] LABS: Anion Gap 14 (12-20); Blood Urea Nitrogen 11 mg/dL (9-16); Calcium 8.7 mg/dL (8.4-10.2); Carbon Dioxide 23 mmol/L (22-29); Chloride 105 mmol/L (96-108); Creatinine Clr Calc Pharmacy 44.9; Estimated Glomerular Filt Rate > 60; Glucose Random 91 mg/dL (60-115); Potassium 4.6 mmol/L (3.3-5.1); Sodium 137 mmol/L (135-145)
[2021-12-04 07:06] VITALS: BP 147/72; PULSE 92; RESP 18; TEMP 35.5; O2SAT 97
[2021-12-04] MEDS: vancomycin HCL 1,000 MG in 0.9 % Sodium Chloride 250 ML 270 MG IV (10:11)
[2021-12-04 11:21] VITALS: BP 142/69; PULSE 90; RESP 18; TEMP 36.3; O2SAT 97
--- NOTE | 2021-12-04 11:55 | HO.PM.IMPN ---
Subjective Subjective Date of Service: 12/04/21 Interval History: the patient was seen and evaluated this morning Laying in bed, feels comfortable Denies any fever, chills or shortness of breath improving erythema in her foot No reported other overnight events. Systemic review: No fever, chills or weakness No chest pain, palpitation No shortness of breath or coughing No abdominal pain, nausea or vomiting No urinary symptoms erythema improving in her leg Physical Exam Vital Signs: Vital Signs: Last Vital Signs Temp 97.4 F 12/04/21 11:21 Pulse 90 12/04/21 11:21 Resp 18 12/04/21 11:21 BP 142/69 H 12/04/21 11:21 Pulse Ox 97 12/04/21 11:21 O2 Del Method 12/04/21 11:21 BMI result Body Mass Index 23.0 Const: Other: Constitutional : Alert, oriented, not in distress Neck : Normal inspection, Supple Cardiovascular : RRR, no JVP, +1 right lower extremity edema Respiratory : fair bilateral air entry, no crackles, wheezes or rhonchi Gastrointestinal: soft, lax, Normal bowel sounds, Non tender Skin : Warm, Dry, erythema improving in her right foot and leg, still warm and have tenderness Neurological : Alert & oriented x3, No focal deficit , CN 2-12 within normal Objective Data Active Medications Vancomycin HCl 1,000 mg/ (Sodium Chloride) 270 mls @ 270 mls/hr IV Q24H [facility] Last Infusion: 12/04/21 11:12 Dose: 0 mls/hr Documented By: CHINA Omeprazole (Omeprazole 20 Mg Capsule.) 20 mg PO DAILY@0630 [facility] Last Admin: 12/04/21 05:56 Dose: 20 mg Documented By: UMA Pharmacy Consult (Consult Rx Vancomycin Dosing) 1 each MISCELLANE DAILY PRN PRN Reason: Consult order Pharmacy Consult (Consult Rx Perform Med Rec) 1 each MISCELLANE ONCE PRN PRN Reason: Consult order Pharmacy Consult (Consult Rx Vancomycin Dosing) 1 each MISCELLANE DAILY PRN PRN Reason: Consult order Labs CBC & Chem 7: 12/04/21 06:00 12/04/21 06:00 Labs: Laboratory Results - last 24 hr 12/04/21 12/04/21 12/04/21 06:00 06:00 06:00 MCV 81.4 MCH 27.3 MCHC 33.6 RDW 14.3 Plt Count 233 MPV 10.5 Absolute Nucleated RBC 0.000 Nucleated RBC % (auto) 0.0 Anion Gap 14 Estim Creat Clear Calc 44.3 44.9 Estimated GFR > 60 > 60 Random Glucose 91 Calcium 8.7 Microbiology Microbiology Results: Microbiology 12/03/21 09:20 Blood Culture - Preliminary Blood - Venous No growth after 24 hours. 12/03/21 09:20 Blood Culture - Preliminary Blood - Venous No growth after 24 hours. Assessment and Plan (1) Cellulitis: Status: Acute Plan This is a 76 year old female with a PMH of multiple drug allergies, osteoporosis, fibromyalgia, GERD, dysphagia who presents to the ED for the 3rd time in less than 1 week of worsening RLE pain, swelling, redness. She has failed outpatient PO zyvox and will not be admitted for further treatment. 1. RLE cellulitis improving Doppler negative for DVT Failed Zyvox Continue vancomcyin has multiple allergies, id consulted but not available 2. GERD PPI 3. Osteoporosis continue vit d/calcium the patient will require overnight hospital stay to continue IV antibiotics treatment pending final blood culture to prevent possible decompensation in to sepsis. Quality Stroke Does the patient have a stroke diagnosis?: No VTE Prior VTE?: No VTE Risk Level:: Medical - moderate - high VTE Device Contraindication: Treatment Not Tolerated VTE Drug Contraindication: N/A - Med Ordered
[2021-12-04 12:00] VITALS: BP 128/72; PULSE 69; RESP 18; TEMP 36.6; O2SAT 96
--- NOTE | 2021-12-04 13:19 | MHC.CM.PN ---
IMM addressed, original to given to patient and copy filed in chart. Patient reports she lives with her spouse. She is independent at home and community, does not have DME or home services. She reports her PCP is Kristine Gamboa'satish x2 ([place]), HCP on file, and will transport. D/C Plan Home (self-care) vs Home with New [facility].
--- NOTE | 2021-12-04 14:26 | MHC.CM.PN ---
PLAN IS FOR PATIENT TO REMAIN 1-2 MORE DAYS CASE MANAGEMENT FOLLOWING FOR DC PLAN
[2021-12-04 15:29] VITALS: BP 126/63; PULSE 83; RESP 17; TEMP 36.2; O2SAT 97
[2021-12-04 20:00] VITALS: BP 131/63; PULSE 74; RESP 16; TEMP 36.4; O2SAT 98
[2021-12-05] VITALS (8 sets, daily range): BP systolic 118–135; BP diastolic 58–88; PULSE 75–99; RESP 16–18; TEMP 35.9–36.6; O2SAT 95–98
[2021-12-05 05:57] LABS: Mean Corpuscular HGB Conc 33.3 g/dl (31.0-35.0); Mean Corpuscular Hemoglobin 27.8 pg (27.0-33.0); Mean Corpuscular Volume 83.5 fL (80.0-98.0); Mean Platelet Volume 10.1 fL (9.4-12.3); Platelet Count 245 X10*3/uL (160-400); Red Blood Count 4.67 X10*6/uL (4.20-5.50); Red Cell Distribution Width 14.2 % (11.0-16.0)
[2021-12-05 06:13] LABS: Estimated Glomerular Filt Rate > 60
[2021-12-05 06:15] LABS: Anion Gap 13 (12-20); Blood Urea Nitrogen 15 mg/dL (9-16); Carbon Dioxide 26 mmol/L (22-29); Chloride 103 mmol/L (96-108); Creatinine Clr Calc Pharmacy 47.3; Estimated Glomerular Filt Rate > 60; Glucose Random 87 mg/dL (60-115); Potassium 5.1 mmol/L (3.3-5.1); Sodium 137 mmol/L (135-145)
[2021-12-05] MEDS: Omeprazole 20 MG CAPSULE.DR PO (06:17)
--- NOTE | 2021-12-05 08:18 | HE.PHANOTE ---
Vancomycin Dosing Addendum Patients renal function down from 0.75, today at 0.71. Random level obtained 12/05 @0700. 12/05 was put in as an error, was suppose to be 12/06. Level came back at 9 mg/dL, however, this is most likely low due to the early level pull. Given patients age no dose change will be done at this time. New order put in to draw a level on 12/06 @0700, will reassess then. Happy to see renal function slightly getting better. As of now, predicted AUC 404 mg/L/hr.
--- NOTE | 2021-12-05 09:27 | P.PNIM_ITS ---
Subjective Subjective Date of Service: 12/05/21 Interval History: seen and examined this morning follow up for RLE cellulitis slight improvement in appearance. still with erythema, swelling and warmth denies fever, chills Review of Systems Review of Systems: Yes all other systems are reviewed and are negative Constitutional Constitutional: Denies chills and Denies fever(s) Cardiovascular Cardiovascular: Denies chest pain, Denies palpitations and Denies dyspnea Respiratory Respiratory: Denies cough and Denies dyspnea Endocrine Endocrine: Denies palpitations Physical Exam Vital Signs: Vital Signs: Last Vital Signs Temp 97.6 F 12/05/21 06:56 Pulse 82 12/05/21 06:56 Resp 18 12/05/21 06:56 BP 128/88 12/05/21 06:56 Pulse Ox 98 12/05/21 06:56 O2 Del Method 12/05/21 06:56 BMI result Body Mass Index 23.0 Const: General: cooperative, comfortable, no acute distress, alert and awake Nutritional Appearance: average body habitus Orientation/consciousness: patient oriented x3 Resp: Effort & Inspection: normal respiratory effort and able to speak in complete sentences Cardio: Rate: regular rate Heart sounds: S1 normal heart sound present and S2 normal heart sound present GI: Inspection: No distended Palpation (GI): Soft to palpation and nontender Skin: Other: Neuro: General: patient oriented x3 Objective Data Active Medications Vancomycin HCl 1,000 mg/ (Sodium Chloride) 270 mls @ 270 mls/hr IV Q24H [facility] Last Infusion: 12/04/21 11:12 Dose: 0 mls/hr Documented By: CHINA Omeprazole (Omeprazole 20 Mg Capsule.Dr) 20 mg PO DAILY@0630 [facility] Last Admin: 12/05/21 06:17 Dose: 20 mg Documented By: MICHAEL Pharmacy Consult (Consult Rx Vancomycin Dosing) 1 each MISCELLANE DAILY PRN PRN Reason: Consult order Pharmacy Consult (Consult Rx Perform Med Rec) 1 each MISCELLANE ONCE PRN PRN Reason: Consult order Pharmacy Consult (Consult Rx Vancomycin Dosing) 1 each MISCELLANE DAILY PRN PRN Reason: Consult order Labs CBC & Chem 7: 12/05/21 05:09 12/05/21 05:09 Labs: Laboratory Results - last 24 hr 12/05/21 12/05/21 12/05/21 05:09 05:09 05:09 MCV 83.5 MCH 27.8 MCHC 33.3 RDW 14.2 Plt Count 245 MPV 10.1 Absolute Nucleated RBC 0.000 Nucleated RBC % (auto) 0.0 Anion Gap 13 Estim Creat Clear Calc 48.0 47.3 Estimated GFR > 60 > 60 Random Glucose 87 Calcium 9.0 Vancomycin Trough 12/05/21 07:31 MCV MCH MCHC RDW Plt Count MPV Absolute Nucleated RBC Nucleated RBC % (auto) Anion Gap Estim Creat Clear Calc Estimated GFR Random Glucose Calcium Vancomycin Trough 9.0 L Microbiology Microbiology Results: Microbiology 12/03/21 09:20 Blood Culture - Preliminary Blood - Venous No growth after 24 hours. 12/03/21 09:20 Blood Culture - Preliminary Blood - Venous No growth after 24 hours. Assessment and Plan (1) Cellulitis: Status: Acute Plan This is a 76 year old female with a PMH of multiple drug allergies, osteoporosis, fibromyalgia, GERD, dysphagia who presents to the ED for the 3rd time in less than 1 week of worsening RLE pain, swelling, redness. She has failed outpatient PO zyvox and will not be admitted for further treatment. RLE cellulitis some improvement but still with swelling and erythema Doppler negative for DVT Failed Zyvox Continue vancomcyin has multiple allergies, id consulted but not available Blood cultures negative x 24 hours if no significant improvement by tomorrow will consider course of steroids GERD PPI Osteoporosis continue vit d/calcium attending - dr. santoyo DVT ppx - compression boots the patient will require ongoing hospital stay to continue IV antibiotics treatment pending final blood culture to prevent possible decompensation in to sepsis. Quality Stroke Does the patient have a stroke diagnosis?: No VTE Prior VTE?: No VTE Risk Level:: Medical - moderate - high VTE Device Contraindication: Treatment Not Tolerated VTE Drug Contraindication: N/A - Med Ordered
[2021-12-05] MEDS: vancomycin HCL 1,000 MG in 0.9 % Sodium Chloride 250 ML 270 MG IV (10:24)
--- NOTE | 2021-12-05 15:32 | MHC.CM.PN ---
PLAN IS FOR MIDLINE OR PICC TOMORROW (12/06/21)' [facility] WILLING TO OFFER.WEEKLY COPAY LISTED IN REFERRAL COMMUNICATIONS. REFERRAL ALSO PLACED TO NA PLAN IS DC BY THURSDAY
--- NOTE | 2021-12-05 22:32 | W.PM.IDCN ---
History of Present Illness Data of Consult Service Date: 12/05/21 Requesting physician: Kimberly Hines Primary Care Provider: Gaye Giang MD HPI Reason for consult: red leg She presents with right leg erythema and swelling for a week. She has no fever or chills. She has been seen in ER three times over last week. She has been on linezolid. She claims multiple drug allergies causing hives including Doxycycline. Review of Systems Review of Systems: Yes all other systems are reviewed and are negative PMFSH Past Medical History Medical History Dysphagia Fibromyalgia GERD (gastroesophageal reflux disease) Hx of sinusitis Left bundle branch block (LBBB) Lower extremity edema Osteoporosis Personal history of COVID-19 Skin cancer Skin cancer of forehead Family History Family History Father Bladder cancer Family history: reviewed and not pertinent Surgical History Surgical History History of appendectomy History of esophagogastroduodenoscopy (EGD) Hx of section Hx of colonoscopy Hx of hysterectomy Social History Social History Household Members: Spouse Housing: Apartment Do you presently have visiting nurse or other home services: No Alcohol intake: never Patient Tobacco Use Status: Never used Tobacco Advance Directives Date on File: 08/05/21 service: No Current occupational status: retired Meds Allergies Allergy/AdvReac Type Severity Reaction Status Date / Time Iodinated Contrast Media Allergy Severe Rash Verified 08/20/21 10:48 [IV CONTRAST] amoxicillin [AMOXICILLIN] Allergy Intermediate HIVES Verified 08/20/21 10:48 aspirin [ASA] Allergy Intermediate HIVES Verified 08/20/21 10:48 atenolol [ATENOLOL] Allergy Intermediate HIVES Verified 08/20/21 10:48 caffeine [CAFFEINE] Allergy Intermediate HIVES Verified 08/20/21 10:48 cat dander [CATS] Allergy Intermediate HIVES Verified 08/20/21 10:48 cefprozil [From CEFZIL] Allergy Intermediate HIVES Verified 08/20/21 10:48 cephalexin [From KEFLEX] Allergy Intermediate HIVES Verified 08/20/21 10:48 clarithromycin [From BIAXIN] Allergy Intermediate HIVES Verified 08/20/21 10:48 clindamycin [From CLEOCIN] Allergy Intermediate HIVES Verified 08/20/21 10:48 codeine [CODEINE] Allergy Intermediate HIVES Verified 08/20/21 10:48 corn [CORN] Allergy Intermediate HIVES Verified 08/20/21 10:48 diphenhydramine Allergy Intermediate HIVES Verified 08/20/21 10:48 [From BENADRYL] dog dander [DOGS] Allergy Intermediate HIVES Verified 08/20/21 10:48 egg [EGGS] Allergy Intermediate HIVES Verified 08/20/21 10:48 erythromycin base Allergy Intermediate ANAPHYLAXIS Verified 08/20/21 10:48 [From ERYTHROCIN] fentanyl [FENTANYL] Allergy Intermediate HIVES Verified 08/20/21 10:48 ghosh [GHOSH] Allergy Intermediate HIVES Verified 08/20/21 10:48 horse dander [HORSE DANDER] Allergy Intermediate HIVES Verified 08/20/21 10:48 ibuprofen [IBUPROFEN] Allergy Intermediate HIVES Verified 08/20/21 10:48 insect venom [MOSQUITO] Allergy Intermediate HIVES Verified 08/20/21 10:48 latex [LATEX] Allergy Intermediate HIVES Verified 08/20/21 10:48 levofloxacin [From LEVAQUIN] Allergy Intermediate HIVES Verified 08/20/21 10:48 metoprolol [METOPROLOL] Allergy Intermediate HIVES Verified 08/20/21 10:48 mite-Dermatophagoides Allergy Intermediate HIVES Verified 08/20/21 10:48 farinae, florentin [DUST MITES] mold [MOLD] Allergy Intermediate HIVES Verified 08/20/21 10:48 nut - unspecified [NUTS] Allergy Intermediate HIVES Verified 08/20/21 10:48 Penicillins [PCN] Allergy Intermediate Anaphylaxis Verified 08/20/21 10:48 soy [SOY] Allergy Intermediate HIVES Verified 08/20/21 10:48 Sulfa (Sulfonamide Allergy Intermediate HIVES Verified 08/20/21 10:48 Antibiotics) [SULFA (SULFONAMIDE ANTIBIOTICS)] sulfamethoxazole Allergy Intermediate HIVES Verified 08/20/21 10:48 [From BACTRIM] tetracycline [TETRACYCLINE] Allergy Intermediate HIVES Verified 08/20/21 10:48 tree and shrub pollen [TREE] Allergy Intermediate HIVES Verified 08/20/21 10:48 trimethoprim [From BACTRIM] Allergy Intermediate HIVES Verified 08/20/21 10:48 wheat [WHEAT] Allergy Intermediate HIVES Verified 08/20/21 10:48 chicken derived Allergy Mild Unknown Verified 08/20/21 10:48 pork derived (porcine) Allergy Mild Unknown Verified 08/20/21 10:48 clavulanic acid [Augmentin] Allergy Unknown Unknown Verified 08/20/21 10:48 mannitol [Reclast] Allergy Unknown Unknown Verified 08/20/21 10:48 zoledronic acid [Reclast] Allergy Unknown Unknown Verified 08/20/21 10:48 prednisone Allergy Rash Verified 08/20/21 10:48 shellfish derived Allergy Rash Verified 08/20/21 10:48 doxycycline AdvReac Severe Rash Verified 08/20/21 10:48 acetaminophen AdvReac Rash Verified 08/20/21 10:48 banana AdvReac Rash Verified 08/20/21 10:48 DUST Allergy Intermediate HIVES Uncoded 08/20/21 10:48 FRUIT Allergy Intermediate HIVES Uncoded 08/20/21 10:48 MADRIBON Allergy Intermediate HIVES Uncoded 08/20/21 10:48 VEGETABLES,FRESH Allergy Intermediate HIVES Uncoded 08/20/21 10:48 Ivp Dye- Omnipaque AdvReac Unknown rash Uncoded 08/20/21 10:48 Active Medications: Current Medications Vancomycin HCl 1,000 mg/ (Sodium Chloride) 270 mls @ 270 mls/hr IV Q24H [facility] Last Infusion: 12/05/21 11:39 Dose: Infused Omeprazole (Omeprazole 20 Mg Capsule.Dr) 20 mg PO DAILY@0630 [facility] Last Admin: 12/05/21 06:17 Dose: 20 mg Pharmacy Consult (Consult Rx Vancomycin Dosing) 1 each MISCELLANE DAILY PRN PRN Reason: Consult order Pharmacy Consult (Consult Rx Perform Med Rec) 1 each MISCELLANE ONCE PRN PRN Reason: Consult order Pharmacy Consult (Consult Rx Vancomycin Dosing) 1 each MISCELLANE DAILY PRN PRN Reason: Consult order Home Medications Medication Instructions Recorded Confirmed Last Taken Type calcium carbonate 600 mg-vitamin 1 tab PO DAILY 07/31/21 12/03/21 Unknown History D3 5 mcg (200 unit) tablet epinephrine 0.3 mg/0.3 mL 0.3 ea IM ONCE PRN Anaphylaxis 12/03/21 12/03/21 Unknown History injection, auto-injector omeprazole 20 mg tablet,delayed 20 mg PO DAILY 12/03/21 12/03/21 Unknown History release Physical Exam Vital Signs: Vital Signs: Last Vital Signs Temp 96.6 F L 12/05/21 19:55 Pulse 75 12/05/21 19:55 Resp 16 12/05/21 19:55 BP 122/58 L 12/05/21 19:55 Pulse Ox 98 12/05/21 19:55 O2 Del Method 12/05/21 19:55 BMI result Body Mass Index 23.0 Const: General: cooperative HEENT: Head: Yes normal to inspection Face and sinus: Yes normal facial exam Mouth: Normal oral and palatal mucosa present Teeth and gingiva: dentition normal Eyes: General: appearance normal, both eyes and all related structures Pupils: Equal, round and reactive pupils present Resp: Effort & Inspection: normal respiratory effort Cardio: Rate: regular rate Rhythm: regular rhythm GI: Palpation (GI): Soft to palpation and nontender : General: Yes no CVA tenderness Back/Spine/Pelvis: Back: no CVA tenderness Skin: General skin exam: no rashes or lesions noted Neuro: General: moves all extremities Cranial nerves: Yes Equal, round and reactive pupils present Extrem: Other: mild redness RLE around ankle laterally General: Yes normal to inspection Psych: Appearance: grossly normal Results Labs CBC & Chem 7: 12/05/21 05:09 12/05/21 05:09 Labs: Short CBC 12/05/21 Range/Units 05:09 WBC 4.0 L (4.8-10.8) X10*3/uL Hgb 13.0 (12.0-16.0) g/dl Hct 39.0 (37.0-47.0) % Plt Count 245 (160-400) X10*3/uL BMP 12/05/21 12/05/21 05:09 05:09 Sodium 137 Potassium 5.1 Chloride 103 Carbon Dioxide 26 BUN 15 Creatinine 0.70 0.71 Calcium 9.0 Microbiology Microbiology Results: Microbiology 12/03/21 09:20 Blood - Venous Blood Culture - Preliminary No growth after 48 hours. 12/03/21 09:20 Blood - Venous Blood Culture - Preliminary No growth after 48 hours. Assessment and Plan (1) Cellulitis: Status: Acute She claims not being able to take po antibiotics. She has been on linezolid with no improvement. She is having improvement with Vancomycin Plan Would continue IV Vancomycin for 2-3 days until improved. She could take at home through PICC line.
[2021-12-06] MEDS: Omeprazole 20 MG CAPSULE.DR PO (05:47)
[2021-12-06 07:27] LABS: Creatinine Clr Calc Pharmacy 44.3; Estimated Glomerular Filt Rate > 60
[2021-12-06 07:34] LABS: Vancomycin Random 10.6 mcg/mL (15-20)
[2021-12-06 08:00] VITALS: BP 132/72; PULSE 72; RESP 18; TEMP 36.6; O2SAT 98
[2021-12-06] MEDS: vancomycin HCL 500 MG in 0.9 % Sodium Chloride 100 ML 110 MG IV (10:25)
[2021-12-06 11:04] VITALS: BP 142/62; PULSE 97; RESP 18; TEMP 36.1; O2SAT 97
--- NOTE | 2021-12-06 11:12 | PM.DS ---
DS: Providers Provider Date of Service: 12/06/21 Date of admission: 12/03/21 11:06 Primary care physician: Gaye Giang MD Consults: 12/03/21 11:09 Consult to Infectious Diseases Routine Consulting Provider: Cecille Perry Reason for consultation: failed outpatient tx for cellulitis with zyvox Attending physician on discharge: Glenroy Chang Discharging clinician: Kimberly Hines DS: Diagnosis Discharge Diagnosis (1) Cellulitis: Status: Acute DS: Summary Hospital Course Hospital Course: from H&P on day of admission This is a 76 year old female with muliple drug allergies and a PMH as outlined below who presents to [facility] ED with complaints of worsening RLE erythema, edema and pain despite the use of PO zyvox for several days. The patient, from whom this is the 3rd ED visit for the same issue over the last 5 days, states that she noticed some lateral ankle redness about 5 days prior to admission. She reports this progressed with significant erythema and eventual pain with limited weight bearing status due to pain. She reports she came to the ED over the weekend (Thursday), where she was prescribed PO zyvox. She returned again the next day, Thursday,? as the symptoms did not improve. She had only taken 1 dose of the Zyvox between the two visits. She was instructed to comlpete several days of PO zyvox and return if not improved. She endorses taking the antibiotics over the last several days, but the pain, swelling and erythema continued to worsen and hence, she came to the ED. In the ED, work up reveals a negative venous doppler for DVT. She is afebrile and has no luekocytosis. On Exam, R ankle is significantly swollen. In light of her multiple allergies along with no improvement with? >72 hours of PO zyvox, she will be admitted for further care. She has been given a dose of vancomcyin. right lower extremity cellulitis. Due to multiple allergies she was placed on Zyvox as outpatient but presents the emergency department with increasing redness and swelling. She was admitted to the hospital and placed on IV vancomycin. She gradually improved over the next several days. She was seen in consultation by Infectious Diseases but due to numerous drug allergies there is no oral antibiotic selection available. She will be discharged to SNF to complete 7 day course of IV vancomycin 500mg bid. Renal function should be checked on Thursday. Single lumen PASV PICC line was placed 12/06 Time Spent with Patient Time attestation: Total time spent providing and/or coordinating discharge services: Discharge coordination time: Greater than 30 minutes Quality: Safe Use of Opioids Does Pt have an Active Cancer Diagnosis on the Problem List?: No Quality: Stroke Does the patient have a stroke diagnosis?: No Physical Exam Vital Signs: Vital Signs: Last Vital Signs Temp 97 F 12/06/21 11:04 Pulse 97 12/06/21 11:04 Resp 18 12/06/21 11:04 BP 142/62 H 12/06/21 11:04 Pulse Ox 97 12/06/21 11:04 O2 Del Method 12/06/21 11:04 BMI result Body Mass Index 23.0 Const: General: cooperative, comfortable, no acute distress, alert and awake Nutritional Appearance: average body habitus Orientation/consciousness: patient oriented x3 Resp: Effort & Inspection: normal respiratory effort and able to speak in complete sentences Cardio: Rate: regular rate Heart sounds: S1 normal heart sound present and S2 normal heart sound present GI: Inspection: No distended Palpation (GI): Soft to palpation and nontender Neuro: General: patient oriented x3 Extrem: Other: DS: Data Data Completed and Pending Labs on day of discharge: Laboratory Results - last 24 hr 12/06/21 12/06/21 06:54 06:54 Creatinine 0.76 Estim Creat Clear Calc 44.3 Estimated GFR > 60 Random Vancomycin 10.6 L Preliminary micro results at discharge 12/03/21 09:20 Blood Culture - Preliminary Blood - Venous No growth after 48 hours. 12/03/21 09:20 Blood Culture - Preliminary Blood - Venous No growth after 48 hours. Discharge Plan Discharge Patient Disposition: Xfer SNF Discharge Diagnosis: RLE Cellulitis Referrals: [facility] [Outside] - 1 Week Gaye Giang MD [Primary Care Provider] - 1 Week Discharge Medications: Continued calcium carbonate-vitamin D3 600 mg-5 mcg (200 unit) Tablet 1 tab PO DAILY epinephrine 0.3 mg/0.3 mL auto-injector 0.3 ea IM ONCE PRN (Reason: Anaphylaxis) omeprazole 20 mg Tablet,Delayed Release (Dr/Ec) 20 mg PO DAILY Discharge Orders: Discharge Order (Routine); Ordered 12/06/21 Ordered By: Kimberly Hines Activity on Discharge: As tolerated Stand Alone Forms: Patient Portal Discharge page Care Plan Goals: Resolution of infection Health Concerns: RLE cellulitis Multiple antibiotic allergies Plan of Treatment: continue vancomycin 500MG bid for 4 more days check renal function on Saturday 12/09 Assessment: See discharge summary
--- NOTE | 2021-12-06 11:41 | MHC.CM.PN ---
Addendum entered by Stephanie Lagos 12/06/21 15:48: PT OFFERED A BED BY HER PREFERRED FACILITY, [facility] REPORT AND COVID TEST RESULTS SENT TO SNF VIA [facility] PT HAS CONFIRMED THIS IS THE DC PLAN SHE WOULD PREFER PTS WILL TRANSPORT HER AFTER DINNER THIS EVENING. Original Note: PT WILL REQUIRE 4 MORE DAYS OF IV ABX AT D/C. PER DISCUSSION THIS MORNING, PT UNSURE IF SHE CAN MANAGE THE MEDS AT HOME AND IS FEARFUL THAT SHE WILL HAVE A REACTION PER DISCUSSION, REFERRAL PLACED TO PTS PREFERRED FACILITY, [facility] IS OFFERING A BED PT REPORTS SHE IS UNSURE WHAT SHE WANTS TO DO AND NEEDS TO UNDERSTAND ALL OPTIONS/TREATMENT REQUIREMENTS CM WILL REVIEW OPTIONS WITH PT AGAIN WHEN HER ARRIVES SO THAT HE CAN ASSIST WITH DC PLANNING.
--- NOTE | 2021-12-06 14:29 | P.PICC_ITS ---
PICC Line Insertion NPICC Diagnosis: CELLULITIS Indication: TEAROOM HOST/HOSTESS IV ANTIBIOTICS Pertinent Labs: REVIEWED Technique: Following informed consent including risks, benefits and alternatives and using sterile technique including cap and mask, sterile gown, glove and drape, the RIGHT arm was prepped and draped in the usual sterile fashion of full barrier technique with CHG. Following completion of Mcclellan Protocol the skin and soft tissues were anesthetized with 1% Lidocaine plain. Using ultrasound guidance, BRACHIAL vein access was obtained IN SINGLE ATTEMPT BY THIS RN. Over an 0.018 wire through peel-away sheath, a SINGLE LUMEN, PASV, 4-HONDURAN PICC line was positioned. Catheter length is 32 CM internal length, 0 CM external length, for a total trimmed length of 32 CM. The procedure was performed in S-272. Tip verification was performed by Gunnar Nation with Alexandre 3CG. Tip located in SVC. Ultrasound was used to document vein patency and for needle entry. A formal ultrasound picture and cardiac rhythm strip was recorded. [employer] has released the line for use and it is currently dressed with a StatLock, Tegaderm, and CHG disc. Verification has been performed for blood return and line patency. Arm Circumference: 28 CM Equipment: [employer] POWERPICC SOLO Catheter Type: SINGLE LUMEN, PASV, 4-HONDURAN Lot #: [id number]
[2021-12-06 15:29] LABS: COVID-19 Test Negative (Negative); IDNOW Serial# 16C4AD1C
[2021-12-06 16:00] VITALS: BP 152/68; PULSE 98; RESP 20; TEMP 36.4; O2SAT 99
[2021-12-06] MEDS: 0.9 % Sodium Chloride Flush 10 ML SYRINGE 5 ML IVFLUSH (16:06)
== END 2021-12-06 18:04 | disposition skilled nursing facility (03) | DRG 603 ==
LOC: HO.ED 10:44 → HO.EDOVER 11:20 → HO.S3 15:13
PROVIDERS: Physician Assistant Medical; Student in an Organized Health Care Education/Training Program; Admitting Provider Family Medicine; Emergency Provider Emergency Medicine Emergency Medical Services; PCP Family Medicine; Visit Provider Physician Assistant Medical
DX: L03.115 Cellulitis of right lower limb (principal); M79.7 Fibromyalgia; K21.9 Gastro-esophageal reflux disease without esophagitis; M81.0 Age-related osteoporosis without current pathological fracture; Z20.822 Contact with and (suspected) exposure to COVID-19; Z91.041 Radiographic dye allergy status; Z91.013 Allergy to seafood; Z91.040 Latex allergy status; Z88.0 Allergy status to penicillin; Z88.1 Allergy status to other antibiotic agents; Z88.8 Allergy status to other drugs, medicaments and biological substances; Z79.899 Other long term (current) drug therapy
CPT/HCPCS: 36415; 36573; 73610; 80048; 80053; 80202; 82565; 83605; 83735; 83880; 84550; 85025; 85027; 85610; 85652; 86140; 87040; 87635; 93971; 99283; 99284; 99285; C1751; J3370

== ENCOUNTER 2021-12-26 06:33 | Emergency (ER) | payer MEDICARE, SELFPAY ==
--- NOTE | ~2021-12-26 | XR_ITS ---
EXAMINATION: XR FOOT, RIGHT CLINICAL INFORMATION: Concern for osteomyelitis. COMPARISON: None TECHNIQUE: AP, lateral, and oblique views of the right foot. FINDINGS: Nonacute deformity is seen in the proximal phalanges of the second, third and fourth digits. Mild interphalangeal degenerative joint changes are seen. No overt cortical erosive changes. The tarsal bones are normally aligned. There is mild soft tissue swelling. XR/XR foot RT 2V IMPRESSION: No evidence for acute fracture or overt osteomyelitis. Mild degenerative changes suggesting osteoarthritis.
--- NOTE | ~2021-12-26 | XR_ITS ---
EXAMINATION: XR TIBIA AND FIBULA, RIGHT CLINICAL INFORMATION: Concern for osteomyelitis. COMPARISON: None TECHNIQUE: AP and lateral views of the right tibia and fibula were obtained. FINDINGS: The tibia and fibula are intact. Limited views of the right knee and ankle are unremarkable. No cortical erosive changes. Mild soft tissue swelling surrounds the right ankle. XR/XR tibia fibula RT 2V IMPRESSION: Mild soft tissue swelling surrounding the right ankle without acute fracture or overt evidence for osteomyelitis.
--- NOTE | ~2021-12-26 | US_ITS ---
EXAMINATION: US VENOUS ULTRASOUND WITH DOPPLER LOWER EXTREMITY, RIGHT CLINICAL INFORMATION: Right lower extremity pain and swelling. COMPARISON: None TECHNIQUE: Ultrasound of the deep veins is performed from the hip to the calf with compression sonography and color and pulse Doppler assessment. Spectral analysis with color-flow imaging is performed. FINDINGS: There is normal venous compression and respiratory variation and augmented flow. The visualized common femoral vein, superficial femoral vein, profunda femoral vein, popliteal vein, and the trifurcation region shows no evidence of deep venous thrombosis. No right popliteal cyst. The subcutaneous soft tissues are unremarkable. If the patient's symptoms persist, followup ultrasound in 5 days 7 days might be of value to exclude proximal propagation from a non-visualized calf vein. US/US venous duplex LE RT IMPRESSION: No evidence for deep venous thrombosis in the visualized veins of the right lower extremity.
[2021-12-26 07:06] VITALS: BP 127/82; PULSE 87; RESP 18; TEMP 36.9; O2SAT 99; BMI 22.2
[2021-12-26 07:45] LABS: Appearance Urine Clear; Color Urine Yellow; Glucose Urine UA Negative (Negative); Leukocyte Esterase Urine Negative (Negative); Nitrite Urine Negative (Negative); PH 5.5 (5.0-8.0); Specific Gravity - Urine <= 1.005 (1.005-1.025); Urine Blood Negative (Negative); Urine Ketones Negative (Negative); Urine Protein Negative (Neg-Trace)
--- NOTE | 2021-12-26 08:57 | ED_ITS ---
HPI - General Adult General Chief complaint: Extremity Problem Stated complaint: rt foot pain after diagnosed with cellulitis Time Seen by Provider: 12/26/21 08:57 Source: patient Mode of arrival: ambulatory Limitations: no limitations History of Present Illness HPI narrative: Patient is a 76 year old female presenting to the emergency department today with right foot swelling. Patient states that she was admitted earlier this month for cellulitis of the right foot and had to be sent to [facility] for continued ABX. Patient states that she was discharged from there on 12/16 with no additional antibiotics. Patient states that she noticed today that her right foot was swelling again. Patient denies any dizziness, lightheadedness, abdominal pain, nausea, vomiting, fever, chills, blurry vision, double vision, loss of vision, chest pain, difficulty breathing, shortness of breath, back pain, night sweats, pain with urination, increased urinary frequency, increased urinary urgency, blood in her urine or stool, syncope or a near syncopal episode, recent trauma or falls, bowel incontinence, bladder incontinence, bowel retention, bladder retention, or any other complaints at this time. Onset (ago): hour(s) Location: right and lower extremity Radiation: non-radiation Severity: mild Severity scale (1-10): 2 Quality: dull Pain Consistency: constant Relieving factors: none Exacerbating factors: none Associated symptoms: denies other symptoms Treatments prior to arrival: none Related Data Home Medications Medication Instructions Recorded Confirmed calcium carbonate 600 mg-vitamin 1 tab PO DAILY 07/31/21 12/03/21 D3 5 mcg (200 unit) tablet epinephrine 0.3 mg/0.3 mL 0.3 ea IM ONCE PRN Anaphylaxis 12/03/21 12/03/21 injection, auto-injector omeprazole 20 mg tablet,delayed 20 mg PO DAILY 12/03/21 12/03/21 release Allergies Allergy/AdvReac Type Severity Reaction Status Date / Time Iodinated Contrast Media Allergy Severe Rash Verified 08/20/21 10:48 [IV CONTRAST] amoxicillin [AMOXICILLIN] Allergy Intermediate HIVES Verified 08/20/21 10:48 aspirin [ASA] Allergy Intermediate HIVES Verified 08/20/21 10:48 atenolol [ATENOLOL] Allergy Intermediate HIVES Verified 08/20/21 10:48 caffeine [CAFFEINE] Allergy Intermediate HIVES Verified 08/20/21 10:48 cat dander [CATS] Allergy Intermediate HIVES Verified 08/20/21 10:48 cefprozil [From CEFZIL] Allergy Intermediate HIVES Verified 08/20/21 10:48 cephalexin [From KEFLEX] Allergy Intermediate HIVES Verified 08/20/21 10:48 clarithromycin [From BIAXIN] Allergy Intermediate HIVES Verified 08/20/21 10:48 clindamycin [From CLEOCIN] Allergy Intermediate HIVES Verified 08/20/21 10:48 codeine [CODEINE] Allergy Intermediate HIVES Verified 08/20/21 10:48 corn [CORN] Allergy Intermediate HIVES Verified 08/20/21 10:48 diphenhydramine Allergy Intermediate HIVES Verified 08/20/21 10:48 [From BENADRYL] dog dander [DOGS] Allergy Intermediate HIVES Verified 08/20/21 10:48 egg [EGGS] Allergy Intermediate HIVES Verified 08/20/21 10:48 erythromycin base Allergy Intermediate ANAPHYLAXIS Verified 08/20/21 10:48 [From ERYTHROCIN] fentanyl [FENTANYL] Allergy Intermediate HIVES Verified 08/20/21 10:48 ghosh [GHOSH] Allergy Intermediate HIVES Verified 08/20/21 10:48 horse dander [HORSE DANDER] Allergy Intermediate HIVES Verified 08/20/21 10:48 ibuprofen [IBUPROFEN] Allergy Intermediate HIVES Verified 08/20/21 10:48 insect venom [MOSQUITO] Allergy Intermediate HIVES Verified 08/20/21 10:48 latex [LATEX] Allergy Intermediate HIVES Verified 08/20/21 10:48 levofloxacin [From LEVAQUIN] Allergy Intermediate HIVES Verified 08/20/21 10:48 metoprolol [METOPROLOL] Allergy Intermediate HIVES Verified 08/20/21 10:48 mite-Dermatophagoides Allergy Intermediate HIVES Verified 08/20/21 10:48 farinae, florentin [DUST MITES] mold [MOLD] Allergy Intermediate HIVES Verified 08/20/21 10:48 nut - unspecified [NUTS] Allergy Intermediate HIVES Verified 08/20/21 10:48 Penicillins [PCN] Allergy Intermediate Anaphylaxis Verified 08/20/21 10:48 soy [SOY] Allergy Intermediate HIVES Verified 08/20/21 10:48 Sulfa (Sulfonamide Allergy Intermediate HIVES Verified 08/20/21 10:48 Antibiotics) [SULFA (SULFONAMIDE ANTIBIOTICS)] sulfamethoxazole Allergy Intermediate HIVES Verified 08/20/21 10:48 [From BACTRIM] tetracycline [TETRACYCLINE] Allergy Intermediate HIVES Verified 08/20/21 10:48 tree and shrub pollen [TREE] Allergy Intermediate HIVES Verified 08/20/21 10:48 trimethoprim [From BACTRIM] Allergy Intermediate HIVES Verified 08/20/21 10:48 wheat [WHEAT] Allergy Intermediate HIVES Verified 08/20/21 10:48 chicken derived Allergy Mild Unknown Verified 08/20/21 10:48 pork derived (porcine) Allergy Mild Unknown Verified 08/20/21 10:48 clavulanic acid [Augmentin] Allergy Unknown Unknown Verified 08/20/21 10:48 mannitol [Reclast] Allergy Unknown Unknown Verified 08/20/21 10:48 zoledronic acid [Reclast] Allergy Unknown Unknown Verified 08/20/21 10:48 prednisone Allergy Rash Verified 08/20/21 10:48 shellfish derived Allergy Rash Verified 08/20/21 10:48 doxycycline AdvReac Severe Rash Verified 08/20/21 10:48 acetaminophen AdvReac Rash Verified 08/20/21 10:48 banana AdvReac Rash Verified 08/20/21 10:48 DUST Allergy Intermediate HIVES Uncoded 08/20/21 10:48 FRUIT Allergy Intermediate HIVES Uncoded 08/20/21 10:48 MADRIBON Allergy Intermediate HIVES Uncoded 08/20/21 10:48 VEGETABLES,FRESH Allergy Intermediate HIVES Uncoded 08/20/21 10:48 Ivp Dye- Omnipaque AdvReac Unknown rash Uncoded 08/20/21 10:48 Review of Systems Constitutional: Constitutional: Reports no additional constitutional complaints, Denies chills, Denies fever(s) and Denies night sweats Eyes: Eyes: Reports no additional eye complaints, Denies blurry vision, Denies change in vision, Denies diplopia, Denies eye discharge, Denies loss of vision and Denies eye pain ENT: Denies dizziness Cardiovascular: Cardiovascular: Reports no additional cardiovascular complaints, Denies chest pain, Denies lightheadedness, Denies Loss of Consciousness and Denies dyspnea Respiratory: Respiratory: Reports no additional respiratory complaints and Denies dyspnea Gastrointestinal: Gastrointestinal: Reports no additional gastrointestinal complaints, Denies abdominal pain, Denies melena, Denies hematochezia, Denies change in bowel habits and Denies change in stool character Genitourinary: Genitourinary: Denies hematuria, Denies urinary frequency, Denies dysuria, Denies urinary incontinence, Denies urinary hesitancy and Denies urinary urgency Musculoskeletal: Musculoskeletal: Reports no additional musculoskeletal complaints, Denies numbness and Denies tingling Comments: right foot swelling Neurologic: Denies dizziness, Denies loss of vision, Denies numbness and Denies tingling Psychiatric: Psychiatric: Reports no additional psychiatric complaints Endocrine: Endocrine: Reports no additional endocrine complaints Hematologic/Lymphatic: Hematologic/Lymphatic: Reports no additional hematologic/lymphatic complaints Allergic/Immunologic: Allergic/Immunologic: Reports no additional allergic/immunologic complaints PMFSH Past Medical History Attestation statement: The following information was validated with the patient. Source: old records reviewed Medical History Dysphagia Fibromyalgia GERD (gastroesophageal reflux disease) Hx of sinusitis Left bundle branch block (LBBB) Lower extremity edema Osteoporosis Personal history of COVID-19 Skin cancer Skin cancer of forehead Surgical History History of appendectomy History of esophagogastroduodenoscopy (EGD) Hx of section Hx of colonoscopy Hx of hysterectomy Family History Family History Father Bladder cancer Social History Social History Household Members: Spouse Housing: Apartment Do you presently have visiting nurse or other home services: No Alcohol intake: never Patient Tobacco Use Status: Never used Tobacco Advance Directives: Yes Advance Directives on File: Yes Advance Directives Date on File: 08/05/21 service: No Current occupational status: retired Physical Exam ED Vital Signs: Vital Signs - 24 hr 12/26/21 07:06 Temperature 98.4 F Pulse Rate 87 Respiratory Rate 18 Blood Pressure 127/82 Pulse Oximetry 99 Oxygen Delivery Method Room Air BMI result Body Mass Index 22.2 Const General: cooperative, no acute distress, alert and awake Nutritional Appearance: well nourished Orientation/consciousness: patient oriented x3 Limitations: no limitations HENMT Head: Yes normal to inspection and Yes atraumatic Ears: hearing grossly normal bilaterally and external ears normal General nose exam: Normal external nose present, no nasal discharge noted and no epistaxis Face and sinus: Yes normal facial exam, No abrasion and No laceration Mouth: Normal oral and palatal mucosa present, no drooling and no muffled voice Eyes General: appearance normal, both eyes and all related structures Periorbital: periorbital findings normal Eyelids: Yes eyelids normal Conjunctivae: conjunctivae normal Pupils: Equal, round and reactive pupils present EOM: EOMs intact bilaterally Neck Neck: Yes normal visual inspection, Yes full ROM and Yes no lymphadenopathy Chest Chest palpation & inspection: normal inspection of the chest Resp Effort & Inspection: normal respiratory effort and able to speak in complete sentences Auscultation: clear to auscultation bilaterally Cardio Rate: regular rate Rhythm: regular rhythm GI Inspection: Yes normal to inspection Neuro General: patient oriented x3 and moves all extremities Cranial nerves: Yes Equal, round and reactive pupils present Cognition (Neuro): normal cognition Motor exam (neuro): 5/5 motor strength present throughout Sensory Exam: Normal double simultaneous stimulation for sensation Coordination: [id number] test normal Extrem General: Yes normal to inspection, Yes full ROM and Yes capillary refill normal Psych Appearance: grossly normal Mental Status: mental status grossly normal Affect: normal affect Attitude: cooperative Thought process: Normal thought process present Thought content: Normal thought content present Insight: Good insight present (Psych) Medical Decision Making [facility] Narrative Medical decision making narrative: Patient is a 76 year old female presenting to the emergency department today with right foot swelling. Patient's physical exam was unremarkable. No erythema, warmth, or swelling present to the right ankle, foot, or leg. Patient's blood work was unremarkable. Patient's urine showed no acute process. Patient's EKG was unremarkable. Patient's right foot and right tib/fib x-ray showed no acute process. Patient's right lower leg US showed no acute process. I explained my physical exam findings as well as all test results to the patient. I answered all questions asked by the patient. I stressed the importance of the patient taking her medication as prescribed. I stressed the importance of the patient following up with her primary care provider. I stressed the importance of the patient returning to the emergency department immediately if her symptoms were to worsen or if she were to develop any dizziness, shortness of breath, di fficulty breathing, chest pain, blurry vision, loss of vision, nausea, vomiting, abdominal pain, fever, chills, back pain, or any other complaints. Patient verbalized agreement and understanding with this treatment plan and discharge. Medical Records Medical records reviewed: Yes I reviewed the patient's medical records. Lab Data Lab results reviewed: Yes I reviewed the patient's lab results. Result diagrams: 12/26/21 09:41 12/26/21 09:41 Labs: Lab Results 12/26/21 12/26/21 12/26/21 Range/Units 07:23 09:41 09:41 WBC 5.2 (4.8-10.8) X10*3/uL RBC 5.34 (4.20-5.50) X10*6/uL Hgb 14.6 (12.0-16.0) g/dl Hct 44.0 (37.0-47.0) % MCV 82.4 (80.0-98.0) fL MCH 27.3 (27.0-33.0) pg MCHC 33.2 (31.0-35.0) g/dl RDW 14.0 (11.0-16.0) % Plt Count 249 (160-400) X10*3/uL MPV 10.5 (9.4-12.3) fL Absolute Nucleated RBC 0.000 (0.0-0.012) X10*3/uL Nucleated RBC % (auto) 0.0 (0.0-0.2) /100WBC Sodium (135-145) mmol/L Potassium (3.3-5.1) mmol/L Chloride (96-108) mmol/L Carbon Dioxide (22-29) mmol/L Anion Gap (12-20) BUN (9-16) mg/dL Creatinine (0.5-1.4) mg/dL Estim Creat Clear Calc Estimated GFR Random Glucose (60-115) mg/dL Calcium (8.4-10.2) mg/dL Total Bilirubin (0.0-1.0) mg/dL AST (5-31) U/L ALT (0-31) U/L Alkaline Phosphatase (39-117) U/L Total Protein (6.5-8.0) g/dL Albumin (3.5-5.0) g/dL Urine Color Yellow Urine Appearance Clear Urine pH 5.5 (5.0-8.0) Ur Specific [place] <= 1.005 (1.005-1.025) Urine Protein Negative (Neg-Trace) mg/dL Urine Glucose (UA) Negative (Negative) mg/dL Urine Ketones Negative (Negative) mg/dL Urine Blood Negative (Negative) Urine Nitrite Negative (Negative) Ur Leukocyte Esterase Negative (Negative) COVID-19 (TERRANCE) Negative (Negative) COVID-19 Clin Com See Note 12/26/21 Range/Units 09:41 WBC (4.8-10.8) X10*3/uL RBC (4.20-5.50) X10*6/uL Hgb (12.0-16.0) g/dl Hct (37.0-47.0) % MCV (80.0-98.0) fL MCH (27.0-33.0) pg MCHC (31.0-35.0) g/dl RDW (11.0-16.0) % Plt Count (160-400) X10*3/uL MPV (9.4-12.3) fL Absolute Nucleated RBC (0.0-0.012) X10*3/uL Nucleated RBC % (auto) (0.0-0.2) /100WBC Sodium 138 (135-145) mmol/L Potassium 4.8 (3.3-5.1) mmol/L Chloride 103 (96-108) mmol/L Carbon Dioxide 26 (22-29) mmol/L Anion Gap 14 (12-20) BUN 12 (9-16) mg/dL Creatinine 0.72 (0.5-1.4) mg/dL Estim Creat Clear Calc 46.8 Estimated GFR > 60 Random Glucose 95 (60-115) mg/dL Calcium 9.8 D (8.4-10.2) mg/dL Total Bilirubin 0.6 (0.0-1.0) mg/dL AST 17 (5-31) U/L ALT 14 (0-31) U/L Alkaline Phosphatase 65 (39-117) U/L Total Protein 6.9 (6.5-8.0) g/dL Albumin 4.2 (3.5-5.0) g/dL Urine Color Urine Appearance Urine pH (5.0-8.0) Ur Specific [place] (1.005-1.025) Urine Protein (Neg-Trace) mg/dL Urine Glucose (UA) (Negative) mg/dL Urine Ketones (Negative) mg/dL Urine Blood (Negative) Urine Nitrite (Negative) Ur Leukocyte Esterase (Negative) COVID-19 (TERRANCE) (Negative) COVID-19 Clin Com Imaging Data Right tib / fib x-ray: Attestation: I personally reviewed and interpreted this imaging study as follows: My impression: No acute process. Radiologist's impression: EXAMINATION: XR TIBIA AND FIBULA, RIGHT CLINICAL INFORMATION: Concern for osteomyelitis.? COMPARISON: None? TECHNIQUE: AP and lateral views of the right tibia and fibula were obtained. FINDINGS: The tibia and fibula are intact. Limited views of the right knee and ankle are unremarkable. No cortical erosive changes. Mild soft tissue swelling surrounds the right ankle. XR/XR tibia fibula RT 2V IMPRESSION: Mild soft tissue swelling surrounding the right ankle without acute fracture or overt evidence for osteomyelitis. Dictated By: Kali Palencia MD Signed By: Electronically signed by Kali Palencia MD 12/26/21 1018 Right foot x-ray: Attestation: I personally reviewed and interpreted this imaging study as follows: My impression: No acute process. Radiologist's impression: EXAMINATION: XR FOOT, RIGHT CLINICAL INFORMATION: Concern for osteomyelitis.? COMPARISON: None? TECHNIQUE: AP, lateral, and oblique views of the right foot. FINDINGS: Nonacute deformity is seen in the proximal phalanges of the second, third and fourth digits. Mild interphalangeal degenerative joint changes are seen. No overt cortical erosive changes. The tarsal bones are normally aligned. There is mild soft tissue swelling.? XR/XR foot RT 2V IMPRESSION: No evidence for acute fracture or overt osteomyelitis. Mild degenerative changes suggesting osteoarthritis. Dictated By: Kali Palencia MD Signed By: Electronically signed by Kali Palencia MD 12/26/21 1017 Venous US: Attestation: I personally reviewed and interpreted this imaging study as follows: My impression: No acute process. Radiologist's impression: EXAMINATION:? US VENOUS ULTRASOUND WITH DOPPLER LOWER EXTREMITY, RIGHT CLINICAL INFORMATION:? Right lower extremity pain and swelling. COMPARISON:? None TECHNIQUE: Ultrasound of the deep veins is performed from the hip to the calf with compression sonography and color and pulse Doppler assessment. Spectral analysis with color-flow imaging is performed. FINDINGS: There is normal venous compression and respiratory variation and augmented flow. The visualized common femoral vein, superficial femoral vein, profunda femoral vein, popliteal vein, and the trifurcation region shows no evidence of deep venous thrombosis. ? No right popliteal cyst. The subcutaneous soft tissues are unremarkable. If the patient's symptoms persist, followup ultrasound in 5 days 7 days might be of value to exclude proximal propagation from a non-visualized calf vein. US/US venous duplex LE RT IMPRESSION: No evidence for deep venous thrombosis in the visualized veins of the right lower extremity. Dictated By: Kali Palencia MD Signed By: Electronically signed by Kali Palencia MD 12/26/21 9666 Discharge Plan Discharge Clinical Impression: Lower extremity edema Patient Disposition: Home, Self-Care Instructions: Edema (ED) Additional Instructions: Follow up with your primary care provider. Return to the emergency department immediately if your symptoms worsen or if you develop any dizziness, shortness of breath, difficulty breathing, chest pain, blurry vision, loss of vision, nausea, vomiting, abdominal pain, fever, chills, back pain, or any other complaints. Prescriptions: No Action calcium carbonate-vitamin D3 600 mg-5 mcg (200 unit) Tablet 1 tab PO DAILY epinephrine 0.3 mg/0.3 mL auto-injector 0.3 ea IM ONCE PRN (Reason: Anaphylaxis) omeprazole 20 mg Tablet,Delayed Release (Dr/Ec) 20 mg PO DAILY Referrals: Gaye Giang MD [Primary Care Provider] - Interventions: ED Discharge Assessment Last Done: 12/26/21 11:55 Discharge Date/Time: 12/26/21 12:05 Print Language: Maltese
[2021-12-26 09:51] LABS: Hemoglobin 14.6 g/dl (12.0-16.0); Mean Corpuscular HGB Conc 33.2 g/dl (31.0-35.0); Mean Corpuscular Hemoglobin 27.3 pg (27.0-33.0); Mean Corpuscular Volume 82.4 fL (80.0-98.0); Mean Platelet Volume 10.5 fL (9.4-12.3); Platelet Count 249 X10*3/uL (160-400); Red Blood Count 5.34 X10*6/uL (4.20-5.50); White Blood Count 5.2 X10*3/uL (4.8-10.8)
[2021-12-26 10:01] LABS: COVID-19 Test Negative (Negative)
[2021-12-26 10:07] LABS: Alanine Aminotransferase 14 U/L (0-31); Albumin Level 4.2 g/dL (3.5-5.0); Alkaline Phosphatase 65 U/L (39-117); Anion Gap 14 (12-20); Aspartate Amino Transferase 17 U/L (5-31); Bilirubin Total 0.6 mg/dL (0.0-1.0); Blood Urea Nitrogen 12 mg/dL (9-16); Calcium 9.8 mg/dL (8.4-10.2); Carbon Dioxide 26 mmol/L (22-29); Chloride 103 mmol/L (96-108); Creatinine Clr Calc Pharmacy 46.8; Estimated Glomerular Filt Rate > 60; Glucose Random 95 mg/dL (60-115); Potassium 4.8 mmol/L (3.3-5.1); Sodium 138 mmol/L (135-145); Total Protein 6.9 g/dL (6.5-8.0)
== END 2021-12-26 12:05 | disposition home or self-care (01) ==
PROVIDERS: Physician Assistant Medical; Emergency Provider Emergency Medicine; PCP Family Medicine
DX: R60.0 Localized edema (principal); M79.671 Pain in right foot; Z20.822 Contact with and (suspected) exposure to COVID-19
CPT/HCPCS: 36415; 73590; 73620; 80053; 81003; 85027; 87635; 93971; 99282; 99284

== ENCOUNTER 2022-05-03 08:31 | Emergency (ER) | payer MEDICARE, SELFPAY ==
--- NOTE | ~2022-05-03 | XR_ITS ---
EXAMINATION: XR ANKLE, RIGHT CLINICAL INFORMATION: Right ankle pain and swelling COMPARISON: None TECHNIQUE: AP, lateral, and mortise views of the right ankle. FINDINGS: The bones and soft tissues are normal. No fracture. Alignment is anatomic. Joint spaces are maintained. No joint effusion. XR/XR ankle RT min 3V IMPRESSION: Normal right ankle.
--- NOTE | ~2022-05-03 | US_ITS ---
EXAMINATION: BILATERAL LOWER EXTREMITY VENOUS ULTRASOUND CLINICAL INFORMATION: Bilateral leg swelling, worse on right calf. Evaluate for DVT COMPARISON: Right lower extremity venous Doppler ultrasound dated 12/26/2021 and 12/03/2021 and bilateral venous Doppler ultrasound dated 10/21/2021. TECHNIQUE: Doppler spectral analysis and color flow Doppler imaging was performed of the lower extremities. Compression and augmentation maneuvers were performed. FINDINGS: The right and left common femoral vein, greater saphenous vein takeoff, femoral vein, and popliteal vein are normally compressible with normal augmentation responses and phasic changes seen with Doppler imaging. The midcalf peroneal and posterior tibial veins are patent as well. No popliteal cyst is seen. US/US venous duplex LE BI IMPRESSION: No evidence of deep venous thrombosis in the right or left lower extremity.
[2022-05-03 08:34] VITALS: BP 151/68; PULSE 100; RESP 16; TEMP 36.2; O2SAT 100; BMI 20.6
--- NOTE | 2022-05-03 09:24 | ED.EXTPRO ---
HPI - Extremity Problem General Chief complaint: Skin/Abscess/Foreign Body Stated complaint: cellulitis Time Seen by Provider: 05/03/22 09:20 Source: patient Mode of arrival: ambulatory Limitations: no limitations History of Present Illness HPI Narrative: 77yoF who has multiple allergies to medications c PMHx of dysphagia, fibromyalgia, GERD, sinusitis, left bundle-branch block, osteoporosis, skin cancer forehead who was recently seen and treated here for cellulitis in December of 2021 to her right ankle who is presenting to the ER with complaints of 2 days of atraumatic right ankle pain/swelling/redness. Reports that when this happened in the past it was due to cellulitis. Reports that she has a history of venous insufficiency and she always has pain to her lower extremities although it is worse since yesterday. When she was seen here in December she was given p.o. Zyvox due to her multiple medication allergies although failed outpatient treatment therefore had to be admitted for IV vancomycin antibiotics via PICC line. At that time she had negative workup with the venous duplex for DVT. She reports she also had hemicolectomy at [facility] in the past few months due to infection per patient. She denies being on any blood thinners. She denies any dizziness, headaches, changes in vision, chest pain or shortness of breath, cough, dyspnea on exertion, orthopnea, palpitations, paresthesias, abdominal pain, nausea/vomiting, recent falls or trauma, recent travel or sick contacts, history of DVT or PE or any other symptoms complaints or concerns at this time. MD Complaint: joint swelling and joint pain Onset (ago): day(s) (2) Pain Consistency: constant Location: right and lower extremity (ankle/foot) Quality: aching Radiation: none Relieving factors: nothing Exacerbating factors: palpation Associated symptoms: denies other symptoms Related Data Home Medications Medication Instructions Recorded Confirmed calcium carbonate 600 mg-vitamin 1 tab PO DAILY 07/31/21 12/03/21 D3 5 mcg (200 unit) tablet epinephrine 0.3 mg/0.3 mL 0.3 ea IM ONCE PRN Anaphylaxis 12/03/21 12/03/21 injection, auto-injector omeprazole 20 mg tablet,delayed 20 mg PO DAILY 12/03/21 12/03/21 release Previous Rx's Medication Instructions Recorded linezolid 600 mg tablet 600 mg PO Q12H 10 days #20 tabs 05/03/22 Allergies Allergy/AdvReac Type Severity Reaction Status Date / Time Iodinated Contrast Media Allergy Severe Rash Verified 08/20/21 10:48 [IV CONTRAST] amoxicillin [AMOXICILLIN] Allergy Intermediate HIVES Verified 08/20/21 10:48 aspirin [ASA] Allergy Intermediate HIVES Verified 08/20/21 10:48 atenolol [ATENOLOL] Allergy Intermediate HIVES Verified 08/20/21 10:48 caffeine [CAFFEINE] Allergy Intermediate HIVES Verified 08/20/21 10:48 cat dander [CATS] Allergy Intermediate HIVES Verified 08/20/21 10:48 cefprozil [From CEFZIL] Allergy Intermediate HIVES Verified 08/20/21 10:48 cephalexin [From KEFLEX] Allergy Intermediate HIVES Verified 08/20/21 10:48 clarithromycin [From BIAXIN] Allergy Intermediate HIVES Verified 08/20/21 10:48 clindamycin [From CLEOCIN] Allergy Intermediate HIVES Verified 08/20/21 10:48 codeine [CODEINE] Allergy Intermediate HIVES Verified 08/20/21 10:48 corn [CORN] Allergy Intermediate HIVES Verified 08/20/21 10:48 diphenhydramine Allergy Intermediate HIVES Verified 08/20/21 10:48 [From BENADRYL] dog dander [DOGS] Allergy Intermediate HIVES Verified 08/20/21 10:48 egg [EGGS] Allergy Intermediate HIVES Verified 08/20/21 10:48 erythromycin base Allergy Intermediate ANAPHYLAXIS Verified 08/20/21 10:48 [From ERYTHROCIN] fentanyl [FENTANYL] Allergy Intermediate HIVES Verified 08/20/21 10:48 ghosh [GHOSH] Allergy Intermediate HIVES Verified 08/20/21 10:48 horse dander [HORSE DANDER] Allergy Intermediate HIVES Verified 08/20/21 10:48 ibuprofen [IBUPROFEN] Allergy Intermediate HIVES Verified 08/20/21 10:48 insect venom [MOSQUITO] Allergy Intermediate HIVES Verified 08/20/21 10:48 latex [LATEX] Allergy Intermediate HIVES Verified 08/20/21 10:48 levofloxacin [From LEVAQUIN] Allergy Intermediate HIVES Verified 08/20/21 10:48 metoprolol [METOPROLOL] Allergy Intermediate HIVES Verified 08/20/21 10:48 mite-Dermatophagoides Allergy Intermediate HIVES Verified 08/20/21 10:48 farinae, florentin [DUST MITES] mold [MOLD] Allergy Intermediate HIVES Verified 08/20/21 10:48 nut - unspecified [NUTS] Allergy Intermediate HIVES Verified 08/20/21 10:48 Penicillins [PCN] Allergy Intermediate Anaphylaxis Verified 08/20/21 10:48 soy [SOY] Allergy Intermediate HIVES Verified 08/20/21 10:48 Sulfa (Sulfonamide Allergy Intermediate HIVES Verified 08/20/21 10:48 Antibiotics) [SULFA (SULFONAMIDE ANTIBIOTICS)] sulfamethoxazole Allergy Intermediate HIVES Verified 08/20/21 10:48 [From BACTRIM] tetracycline [TETRACYCLINE] Allergy Intermediate HIVES Verified 08/20/21 10:48 tree and shrub pollen [TREE] Allergy Intermediate HIVES Verified 08/20/21 10:48 trimethoprim [From BACTRIM] Allergy Intermediate HIVES Verified 08/20/21 10:48 wheat [WHEAT] Allergy Intermediate HIVES Verified 08/20/21 10:48 chicken derived Allergy Mild Unknown Verified 08/20/21 10:48 pork derived (porcine) Allergy Mild Unknown Verified 08/20/21 10:48 clavulanic acid [Augmentin] Allergy Unknown Unknown Verified 08/20/21 10:48 mannitol [Reclast] Allergy Unknown Unknown Verified 08/20/21 10:48 zoledronic acid [Reclast] Allergy Unknown Unknown Verified 08/20/21 10:48 prednisone Allergy Rash Verified 08/20/21 10:48 shellfish derived Allergy Rash Verified 08/20/21 10:48 doxycycline AdvReac Severe Rash Verified 08/20/21 10:48 acetaminophen AdvReac Rash Verified 08/20/21 10:48 banana AdvReac Rash Verified 08/20/21 10:48 DUST Allergy Intermediate HIVES Uncoded 08/20/21 10:48 FRUIT Allergy Intermediate HIVES Uncoded 08/20/21 10:48 MADRIBON Allergy Intermediate HIVES Uncoded 08/20/21 10:48 VEGETABLES,FRESH Allergy Intermediate HIVES Uncoded 08/20/21 10:48 Ivp Dye- Omnipaque AdvReac Unknown rash Uncoded 08/20/21 10:48 Review of Systems Review of Systems: Constitutional : No Weight loss, No Fever, No Chills, No Night Sweats, No Fatigue, No Malaise ENT/Mouth : No Hearing loss, No Ear Pain, No Nasal Congestion, No Sinus Pain, No Hoarseness, No sore throat, No Rhinorrhea, No Swallowing Difficulty Eyes: No Eye Pain, No Swelling, No Redness, No Foreign Body, No Discharge, No Vision Changes Cardiovascular : No Chest Pain, No SOB, No Dyspnea on Exertion, No Orthopnea, No Edema, No Palpitations Respiratory : No Cough, No Sputum, No Wheezing, No Smoke Exposure, No Dyspnea Gastrointestinal : No Nausea, No Vomiting, No Diarrhea, No Constipation, No abdominal Pain, No Hematochezia, No Melena Genitourinary : no irregular bleeding, No Dysuria, No Urinary Frequency, No Hematuria, No Urinary Incontinence, No Urgency, No Flank Pain, No Urinary Flow Changes, No Hesitancy Musculoskeletal : + Right ankle joint pain/swelling/redness, No Myalgias Skin : No Skin Lesions, No rash Neuro : No Weakness, No Numbness, No Paresthesias, No Loss of Consciousness, No Dizziness, No Headache Psych : No Anxiety/Panic, No Depression, No SI/HI/AH/VH, No Social Issues, Heme/Lymph: No Bruising, No Bleeding,No Lymphadenopathy Endocrine : No Polyuria, No Polydipsia, No Temperature Intolerance Yes all other systems are reviewed and are negative [facility] Past Medical History Attestation statement: The following information was validated with the patient. Source: old records reviewed and nursing notes reviewed Medical History Dysphagia Fibromyalgia GERD (gastroesophageal reflux disease) Hx of sinusitis Left bundle branch block (LBBB) Lower extremity edema Osteoporosis Personal history of COVID-19 Skin cancer Skin cancer of forehead Surgical History History of appendectomy History of esophagogastroduodenoscopy (EGD) Hx of section Hx of colonoscopy Hx of hysterectomy Family History Family History Father Bladder cancer Social History Social History Household Members: Spouse Housing: Apartment Do you presently have visiting nurse or other home services: No Alcohol intake: never Patient Tobacco Use Status: Never used Tobacco Advance Directives: Yes Advance Directives on File: Yes Advance Directives Date on File: 08/05/21 service: No Current occupational status: retired Physical Exam Vital Signs: Vital Signs: Last Vital Signs Temp 97.1 F 05/03/22 08:34 Pulse 100 05/03/22 08:34 Resp 16 05/03/22 08:34 BP 151/68 H 05/03/22 08:34 Pulse Ox 100 05/03/22 08:34 O2 Del Method 05/03/22 08:34 BMI result Body Mass Index 20.6 Vital signs reviewed. Blood pressure 151/68. Pulse normal. Respiration normal. Oxygen normal. Temperature normal. Appearance: Alert. Oriented X3. No acute distress. Head: Normal external exam. Normocephalic. Atraumatic. Eyes: PERRLA. EOMI. Conjunctiva and sclera normal. Eyelids normal. ENT: EAC normal. TM's Normal. Pharynx normal. Uvula midline. Moist mucous membranes. No lesions/ulcerations or masses noted on the tongue. Normal voice. No trismus noted. No drooling noted. No muffled voice noted. Neck: Normal inspection. Neck supple. FROM. No adenopathy. Thyroid Normal. No meningeal signs. CVS: Normal heart rate and rhythm. Heart sound normal. Pulses normal throughout. No murmurs/rales/gallops. Respiratory: No respiratory distress. Painless inspiration. Breath sounds normal. No wheezes/rales/rhonchi noted. Chest nontender. No accessory muscle usage noted or decreased air movement noted. Abdomen: Soft and nontender. Back: Full range of motion noted. Nontender. Skin: Skin warm and dry. Normal skin color. Normal skin turgor. No rashes/lesions/lacerations noted. Extremities: To the right lateral aspect of the ankle patient has mild soft tissue swelling with tenderness palpation and mild erythema. It is not warm to the touch at this time. She is noted to have bilateral calf tenderness. No obvious lower extremity pitting edema noted. Otherwise all other Extremities exhibit normal range of motion and nontender. Neuro: Oriented X 3. No motor deficit. No sensory deficit. Reflexes normal. Normal steady gait. No focal neuro deficits noted. CN's II-XII intact bilaterally? Vascular: + radial pulses, +distal pedal pulses noted bilaterally. Normal cap refill. No cyanosis noted to upper extremity nails/lower extremity nails Course Course Course Narrative: 9:20am - 77yoF who has multiple allergies to medications c PMHx of dysphagia, fibromyalgia, GERD, sinusitis, left bundle-branch block, osteoporosis, skin cancer forehead who was recently seen and treated here for cellulitis in December of 2021 to her right ankle who is presenting to the ER with complaints of 2 days of atraumatic right ankle pain/swelling/redness. Reports that when this happened in the past it was due to cellulitis. Reports that she has a history of venous insufficiency and she always has pain to her lower extremities although it is worse since yesterday. When she was seen here in December she was given p.o. Zyvox due to her multiple medication allergies although failed outpatient treatment therefore had to be admitted for IV vancomycin antibiotics via PICC line. At that time she had negative workup with the venous duplex for DVT. She reports she also had hemicolectomy at [facility] in the past few months due to infection per patient. Plan: Will obtain x-ray of right ankle, venous duplex ultrasound of bilateral lower extremity and re-evaluate. Reevaluation(s) Reevaluation #1: Right ankle x-ray negative for any acute processes. Venous duplex ultrasound of bilateral lower extremity negative for DVTs. Therefore at this time will DC home with antibiotics and due to patient having multiple allergies will give the antibiotic she has tried in the past p.o. Linezolid 600 mg every 12 hours for 10 days with instructions to follow-up with PCP in 2 days and to return if any new or worsening symptoms. Patient at bedside understand agree this plan. Time: 11:36 Medical Decision Making Lab Data MDM Lab Attestation statement: I reviewed the patient's lab results. Labs: Lab Results 05/03/22 Range/Units 10:54 Urine Color Yellow Urine Appearance Clear Urine pH 5.0 (5.0-9.0) Ur Specific [place] 1.010 (1.005-1.025) Urine Protein Negative (Neg-Trace) mg/dL Urine Glucose (UA) Negative (Negative) mg/dL Urine Ketones Negative (Negative) mg/dL Urine Blood Negative (Negative) Urine Nitrite Negative (Negative) Ur Leukocyte Esterase Negative (Negative) Independent Interpretation I performed an independent interpretation of an: Plain X-Ray and Ultrasound Interpretation: Right ankle x-ray FINDINGS: The bones and soft tissues are normal. No fracture. Alignment is anatomic. Joint spaces are maintained. No joint effusion.? XR/XR ankle RT min 3V IMPRESSION: Normal right ankle. Venous duplex ultrasound of bilateral lower extremity FINDINGS: The right and left common femoral vein, greater saphenous vein takeoff, femoral vein, and popliteal vein are normally compressible with normal augmentation responses and phasic changes seen with Doppler imaging. The midcalf peroneal and posterior tibial veins are patent as well. No popliteal cyst is seen. US/US venous duplex LE BI IMPRESSION: No evidence of deep venous thrombosis in the right or left lower extremity. Radiology Impression Discussion of test interpretation with radiology: I have reviewed the radiologist's reading. Independent Historian Clinical information obtained from an independent historian. History obtained from or confirmed by: Spouse External Record Review External record reviewed: Inpatient record, Office record, Outpatient record, Prior outpatient labs, Prior outpatient radiology, Primary care record and Outside ED record Discharge Plan Discharge Clinical Impression: Cellulitis of right ankle Patient Disposition: Home, Self-Care Instructions: Cellulitis (ED) Prescriptions: New linezolid 600 mg tablet 600 mg PO Q12H 10 Days Qty: 20 0RF No Action calcium carbonate-vitamin D3 600 mg-5 mcg (200 unit) Tablet 1 tab PO DAILY epinephrine 0.3 mg/0.3 mL auto-injector 0.3 ea IM ONCE PRN (Reason: Anaphylaxis) omeprazole 20 mg Tablet,Delayed Release (Dr/Ec) 20 mg PO DAILY Referrals: Gaye Giang MD [Primary Care Provider] - 2 days (For right ankle cellulitis recheck) Interventions: ED Discharge Assessment Last Done: 05/03/22 11:44 Discharge Date/Time: 05/03/22 11:45
[2022-05-03 11:01] LABS: Appearance Urine Clear; Color Urine Yellow; Glucose Urine UA Negative (Negative); Leukocyte Esterase Urine Negative (Negative); Nitrite Urine Negative (Negative); Urine Blood Negative (Negative); Urine Ketones Negative (Negative); Urine Protein Negative (Neg-Trace)
== END 2022-05-03 11:45 | disposition home or self-care (01) ==
PROVIDERS: Physician Assistant Medical; Emergency Provider Emergency Medicine; PCP Family Medicine
DX: L03.115 Cellulitis of right lower limb (principal); M25.571 Pain in right ankle and joints of right foot; M79.89 Other specified soft tissue disorders
CPT/HCPCS: 73610; 81003; 93970; 99283; 99284

== ENCOUNTER 2022-05-21 06:26 | Emergency (ER) | payer MEDICARE, SELFPAY ==
[2022-05-21 06:38] VITALS: BP 139/71; PULSE 106; RESP 18; TEMP 36.6; O2SAT 92; BMI 20.4
[2022-05-21 08:02] VITALS: BP 128/68; PULSE 102; RESP 18; O2SAT 97
--- NOTE | 2022-05-21 08:07 | PC.NURSE ---
pt alert and oriented, skin pwd, respirations even and unlabored, pt reports that she has cellulites of the right leg and was on and abx in April and states that there is swelling in the led, no visible redness/no sores/not warm to the touch, very minim swelling to both of the legs maybe like +1 peding edema. legs are tender to touch, pt reports pain at 6/10.
[2022-05-21 08:11] LABS: Hematocrit 40.4 % (37.0-47.0); Hemoglobin 13.6 g/dl (12.0-16.0); Lactic Acid 1.8 mmol/L (0.5-2.0); Mean Corpuscular HGB Conc 33.7 g/dl (31.0-35.0); Mean Corpuscular Hemoglobin 26.8 pg (27.0-33.0); Mean Corpuscular Volume 79.5 fL (80.0-98.0); Red Blood Count 5.08 X10*6/uL (4.20-5.50); Red Cell Distribution Width 14.1 % (11.0-16.0); White Blood Count 6.5 X10*3/uL (4.8-10.8)
--- NOTE | 2022-05-21 08:14 | ED.GENADULT ---
HPI - General Adult General Chief complaint: General Medical Stated complaint: Bilateral foot pain Time Seen by Provider: 05/21/22 08:13 Source: patient Mode of arrival: ambulatory Limitations: no limitations History of Present Illness HPI narrative: Patient is a 77 year old assigned female at with a history of lower leg swelling presenting to the emergency department today with bilateral lower leg swelling and concerns of leg cellulitis. Patient states that she always has pain in her legs but now she is having intermittent redness on them and she is concerned that it is cellulitis. Patient denies any dizziness, lightheadedness, abdominal pain, nausea, vomiting, fever, chills, blurry vision, double vision, loss of vision, chest pain, difficulty breathing, shortness of breath, back pain, night sweats, pain with urination, increased urinary frequency, increased urinary urgency, blood in her urine or stool, syncope or a near syncopal episode, recent trauma or falls, bowel incontinence, bladder incontinence, bowel retention, bladder retention, or any other complaints at this time. Onset (ago): day(s) Location: left, right and lower extremity Radiation: non-radiation Severity: mild Severity scale (1-10): 2 Relieving factors: none Exacerbating factors: none Associated symptoms: denies other symptoms Treatments prior to arrival: none Related Data Home Medications Medication Instructions Recorded Confirmed calcium carbonate 600 mg-vitamin 1 tab PO DAILY 07/31/21 12/03/21 D3 5 mcg (200 unit) tablet epinephrine 0.3 mg/0.3 mL 0.3 ea IM ONCE PRN Anaphylaxis 12/03/21 12/03/21 injection, auto-injector omeprazole 20 mg tablet,delayed 20 mg PO DAILY 12/03/21 12/03/21 release Previous Rx's Medication Instructions Recorded linezolid 600 mg tablet 600 mg PO Q12H 10 days #20 tabs 05/03/22 Allergies Allergy/AdvReac Type Severity Reaction Status Date / Time Iodinated Contrast Media Allergy Severe Rash Verified 08/20/21 10:48 [IV CONTRAST] amoxicillin [AMOXICILLIN] Allergy Intermediate HIVES Verified 08/20/21 10:48 aspirin [ASA] Allergy Intermediate HIVES Verified 08/20/21 10:48 atenolol [ATENOLOL] Allergy Intermediate HIVES Verified 08/20/21 10:48 caffeine [CAFFEINE] Allergy Intermediate HIVES Verified 08/20/21 10:48 cat dander [CATS] Allergy Intermediate HIVES Verified 08/20/21 10:48 cefprozil [From CEFZIL] Allergy Intermediate HIVES Verified 08/20/21 10:48 cephalexin [From KEFLEX] Allergy Intermediate HIVES Verified 08/20/21 10:48 clarithromycin [From BIAXIN] Allergy Intermediate HIVES Verified 08/20/21 10:48 clindamycin [From CLEOCIN] Allergy Intermediate HIVES Verified 08/20/21 10:48 codeine [CODEINE] Allergy Intermediate HIVES Verified 08/20/21 10:48 corn [CORN] Allergy Intermediate HIVES Verified 08/20/21 10:48 diphenhydramine Allergy Intermediate HIVES Verified 08/20/21 10:48 [From BENADRYL] dog dander [DOGS] Allergy Intermediate HIVES Verified 08/20/21 10:48 egg [EGGS] Allergy Intermediate HIVES Verified 08/20/21 10:48 erythromycin base Allergy Intermediate ANAPHYLAXIS Verified 08/20/21 10:48 [From ERYTHROCIN] fentanyl [FENTANYL] Allergy Intermediate HIVES Verified 08/20/21 10:48 ghosh [GHOSH] Allergy Intermediate HIVES Verified 08/20/21 10:48 horse dander [HORSE DANDER] Allergy Intermediate HIVES Verified 08/20/21 10:48 ibuprofen [IBUPROFEN] Allergy Intermediate HIVES Verified 08/20/21 10:48 insect venom [MOSQUITO] Allergy Intermediate HIVES Verified 08/20/21 10:48 latex [LATEX] Allergy Intermediate HIVES Verified 08/20/21 10:48 levofloxacin [From LEVAQUIN] Allergy Intermediate HIVES Verified 08/20/21 10:48 metoprolol [METOPROLOL] Allergy Intermediate HIVES Verified 08/20/21 10:48 mite-Dermatophagoides Allergy Intermediate HIVES Verified 08/20/21 10:48 farinae, florentin [DUST MITES] mold [MOLD] Allergy Intermediate HIVES Verified 08/20/21 10:48 nut - unspecified [NUTS] Allergy Intermediate HIVES Verified 08/20/21 10:48 Penicillins [PCN] Allergy Intermediate Anaphylaxis Verified 08/20/21 10:48 soy [SOY] Allergy Intermediate HIVES Verified 08/20/21 10:48 Sulfa (Sulfonamide Allergy Intermediate HIVES Verified 08/20/21 10:48 Antibiotics) [SULFA (SULFONAMIDE ANTIBIOTICS)] sulfamethoxazole Allergy Intermediate HIVES Verified 08/20/21 10:48 [From BACTRIM] tetracycline [TETRACYCLINE] Allergy Intermediate HIVES Verified 08/20/21 10:48 tree and shrub pollen [TREE] Allergy Intermediate HIVES Verified 08/20/21 10:48 trimethoprim [From BACTRIM] Allergy Intermediate HIVES Verified 08/20/21 10:48 wheat [WHEAT] Allergy Intermediate HIVES Verified 08/20/21 10:48 chicken derived Allergy Mild Unknown Verified 08/20/21 10:48 pork derived (porcine) Allergy Mild Unknown Verified 08/20/21 10:48 clavulanic acid [Augmentin] Allergy Unknown Unknown Verified 08/20/21 10:48 mannitol [Reclast] Allergy Unknown Unknown Verified 08/20/21 10:48 zoledronic acid [Reclast] Allergy Unknown Unknown Verified 08/20/21 10:48 prednisone Allergy Rash Verified 08/20/21 10:48 shellfish derived Allergy Rash Verified 08/20/21 10:48 doxycycline AdvReac Severe Rash Verified 08/20/21 10:48 acetaminophen AdvReac Rash Verified 08/20/21 10:48 banana AdvReac Rash Verified 08/20/21 10:48 DUST Allergy Intermediate HIVES Uncoded 08/20/21 10:48 FRUIT Allergy Intermediate HIVES Uncoded 08/20/21 10:48 MADRIBON Allergy Intermediate HIVES Uncoded 08/20/21 10:48 VEGETABLES,FRESH Allergy Intermediate HIVES Uncoded 08/20/21 10:48 Ivp Dye- Omnipaque AdvReac Unknown rash Uncoded 08/20/21 10:48 Review of Systems Constitutional: Constitutional: Reports no additional constitutional complaints, Denies chills, Denies fever(s) and Denies night sweats Eyes: Eyes: Reports no additional eye complaints, Denies blurry vision, Denies change in vision, Denies diplopia, Denies eye discharge, Denies loss of vision and Denies eye pain ENT: Denies dizziness Cardiovascular: Cardiovascular: Reports no additional cardiovascular complaints, Denies chest pain, Denies lightheadedness, Denies Loss of Consciousness and Denies dyspnea Respiratory: Respiratory: Reports no additional respiratory complaints and Denies dyspnea Gastrointestinal: Gastrointestinal: Reports no additional gastrointestinal complaints, Denies abdominal pain, Denies melena, Denies hematochezia, Denies change in bowel habits and Denies change in stool character Genitourinary: Genitourinary: Denies hematuria, Denies urinary frequency, Denies dysuria, Denies urinary incontinence, Denies urinary hesitancy and Denies urinary urgency Musculoskeletal: Musculoskeletal: Reports no additional musculoskeletal complaints, Denies numbness and Denies tingling Comments: bilateral lower leg swelling Neurologic: Denies dizziness, Denies loss of vision, Denies numbness and Denies tingling Psychiatric: Psychiatric: Reports no additional psychiatric complaints Endocrine: Endocrine: Reports no additional endocrine complaints Hematologic/Lymphatic: Hematologic/Lymphatic: Reports no additional hematologic/lymphatic complaints Allergic/Immunologic: Allergic/Immunologic: Reports no additional allergic/immunologic complaints PMFSH Past Medical History Attestation statement: The following information was validated with the patient. Source: old records reviewed and nursing notes reviewed Medical History Dysphagia Fibromyalgia GERD (gastroesophageal reflux disease) Hx of sinusitis Left bundle branch block (LBBB) Lower extremity edema Osteoporosis Personal history of COVID-19 Skin cancer Skin cancer of forehead Surgical History History of appendectomy History of esophagogastroduodenoscopy (EGD) Hx of section Hx of colonoscopy Hx of hysterectomy Family History Family History Father Bladder cancer Social History Social History Household Members: Spouse Housing: Apartment Do you presently have visiting nurse or other home services: No Alcohol intake: never Patient Tobacco Use Status: Never used Tobacco Smoked in Last 30 Days: No Use of substances other than those prescribed or required for medical reasons: No Advance Directives: Yes Advance Directives on File: Yes Advance Directives Date on File: 08/05/21 service: No Current occupational status: retired Physical Exam ED Vital Signs: Vital Signs - 24 hr 05/21/22 06:38 05/21/22 08:02 Temperature 97.8 F Pulse Rate 106 H 102 H Respiratory Rate 18 18 Blood Pressure 139/71 128/68 Pulse Oximetry 92 97 Oxygen Delivery Method Room Air Room Air BMI result Body Mass Index 20.4 Const General: cooperative, no acute distress, alert and awake Nutritional Appearance: well nourished Orientation/consciousness: patient oriented x3 Limitations: no limitations HENMT Head: Yes normal to inspection and Yes atraumatic Ears: hearing grossly normal bilaterally and external ears normal General nose exam: Normal external nose present, no nasal discharge noted and no epistaxis Face and sinus: Yes normal facial exam, No abrasion and No laceration Mouth: Normal oral and palatal mucosa present, no drooling and no muffled voice Eyes General: appearance normal, both eyes and all related structures Periorbital: periorbital findings normal Eyelids: Yes eyelids normal Conjunctivae: conjunctivae normal Pupils: Equal, round and reactive pupils present EOM: EOMs intact bilaterally Neck Neck: Yes normal visual inspection, Yes full ROM and Yes no lymphadenopathy Chest Chest palpation & inspection: normal inspection of the chest Resp Effort & Inspection: normal respiratory effort and able to speak in complete sentences Auscultation: clear to auscultation bilaterally Cardio Rate: regular rate Rhythm: regular rhythm GI Inspection: Yes normal to inspection Neuro General: patient oriented x3 and moves all extremities Cranial nerves: Yes Equal, round and reactive pupils present Cognition (Neuro): normal cognition Motor exam (neuro): 5/5 motor strength present throughout Sensory Exam: Normal double simultaneous stimulation for sensation Coordination: [id number] test normal Extrem Other: mild bilateral lower leg swelling, no erythema, no warmth General: Yes full ROM and Yes capillary refill normal Psych Appearance: grossly normal Mental Status: mental status grossly normal Affect: normal affect Attitude: cooperative Thought process: Normal thought process present Thought content: Normal thought content present Insight: Good insight present (Psych) Medical Decision Making Medical Decision Making MDM Narrative: Patient is a 77 year old assigned female at with a history of chronic bilateral lower leg pain and bilateral lower leg swelling presenting to the emergency department today with concerns of lower leg cellulitis. Patient's physical exam showed very mild bilateral lower leg swelling but was otherwise unremarkable. Patient's blood work was unremarkable. Patient is not septic (@0845). I explained my physical exam findings as well as all test results to the patient. I answered all questions asked by the patient. I stressed the importance of the patient taking her medication as prescribed. I stressed the importance of the patient following up with her primary care provider. I stressed the importance of the patient returning to the emergency department immediately if her symptoms were to worsen or if she were to develop any dizziness, shortness of breath, difficulty breathing, chest pain, blurry vision, loss of vision, nausea, vomiting, abdominal pain, fever, chills, back pain, or any other complaints. Patient verbalized agreement and understanding with this treatment plan and discharge. Differential Diagnosis Differential Diagnoses: The differential diagnosis associated with the presentation includes chronic lower leg pain, chronic lower leg swelling Lab Data MDM Lab Attestation statement: I reviewed the patient's lab results. 05/21/22 07:50 05/21/22 07:50 Labs: Lab Results 05/21/22 05/21/22 05/21/22 Range/Units 07:50 07:50 07:50 WBC 6.5 (4.8-10.8) X10*3/uL RBC 5.08 (4.20-5.50) X10*6/uL Hgb 13.6 (12.0-16.0) g/dl Hct 40.4 (37.0-47.0) % MCV 79.5 L (80.0-98.0) fL MCH 26.8 L (27.0-33.0) pg MCHC 33.7 (31.0-35.0) g/dl RDW 14.1 (11.0-16.0) % Plt Count 143 L D (160-400) X10*3/uL MPV 10.8 (9.4-12.3) fL Absolute Nucleated RBC 0.000 (0.0-0.012) X10*3/uL Nucleated RBC % (auto) 0.0 (0.0-0.2) /100WBC Sodium 140 (135-145) mmol/L Potassium 4.6 (3.3-5.1) mmol/L Chloride 107 (96-108) mmol/L Carbon Dioxide 24 (22-29) mmol/L Anion Gap 14 (12-20) BUN 11 (9-16) mg/dL Creatinine 0.74 (0.5-1.4) mg/dL Estim Creat Clear Calc 44.8 Estimated GFR > 60 Random Glucose 105 (60-115) mg/dL Lactic Acid 1.8 (0.5-2.0) mmol/L Calcium 9.6 (8.4-10.2) mg/dL Total Bilirubin 0.4 (0.0-1.0) mg/dL AST 17 (5-31) U/L ALT 15 (0-31) U/L Alkaline Phosphatase 69 (39-117) U/L C-Reactive Protein < 0.10 (< or = 0.50) mg/dL Total Protein 6.6 (6.5-8.0) g/dL Albumin 4.0 (3.5-5.0) g/dL Discharge Plan Discharge Clinical Impression: Edema Patient Disposition: Home, Self-Care Instructions: Edema (ED) Additional Instructions: Follow up with your primary care provider. Return to the emergency department immediately if your symptoms worsen or if you develop any dizziness, shortness of breath, difficulty breathing, chest pain, blurry vision, loss of vision, nausea, vomiting, abdominal pain, fever, chills, back pain, or any other complaints. Prescriptions: No Action linezolid 600 mg tablet 600 mg PO Q12H 10 Days Qty: 20 0RF calcium carbonate-vitamin D3 600 mg-5 mcg (200 unit) Tablet 1 tab PO DAILY epinephrine 0.3 mg/0.3 mL auto-injector 0.3 ea IM ONCE PRN (Reason: Anaphylaxis) omeprazole 20 mg Tablet,Delayed Release (Dr/Ec) 20 mg PO DAILY Interventions: ED Discharge Assessment Last Done: 05/21/22 08:48 Discharge Date/Time: 05/21/22 08:49 Print Language: Prydeinig
[2022-05-21 08:15] LABS: Alanine Aminotransferase 15 U/L (0-31); Alkaline Phosphatase 69 U/L (39-117); Anion Gap 14 (12-20); Aspartate Amino Transferase 17 U/L (5-31); Bilirubin Total 0.4 mg/dL (0.0-1.0); Blood Urea Nitrogen 11 mg/dL (9-16); Calcium 9.6 mg/dL (8.4-10.2); Carbon Dioxide 24 mmol/L (22-29); Chloride 107 mmol/L (96-108); Creatinine Clr Calc Pharmacy 44.8; Estimated Glomerular Filt Rate > 60; Glucose Random 105 mg/dL (60-115); Potassium 4.6 mmol/L (3.3-5.1); Sodium 140 mmol/L (135-145); Total Protein 6.6 g/dL (6.5-8.0)
[2022-05-21 08:30] LABS: Mean Platelet Volume 10.8 fL (9.4-12.3)
[2022-05-21 08:31] LABS: Platelet Count 143 X10*3/uL (160-400)
[2022-05-21 08:44] LABS: C Reactive Protein < 0.10 mg/dL (< or = 0.50)
[2022-05-21 09:21] LABS: Erythrocyte Sedimentation Rate 7 MM/HR (0-20)
== END 2022-05-21 08:49 | disposition home or self-care (01) ==
PROVIDERS: Physician Assistant Medical; Emergency Provider Emergency Medicine
DX: R60.0 Localized edema (principal); M79.672 Pain in left foot; M79.671 Pain in right foot
CPT/HCPCS: 36415; 80053; 83605; 85027; 85652; 86140; 87040; 99283; 99284

== ENCOUNTER 2023-05-02 10:45 | Emergency (ER) | payer MEDICARE, SELFPAY ==
[2023-05-02 10:51] VITALS: BP 147/75; PULSE 114; RESP 18; TEMP 36.1; O2SAT 99; BMI 21.0
--- OUTSIDE RECORDS SUMMARY | 2023-05-02 12:09 | XMS_ITS | Continuity of Care Document ---
Author Name Unknown Organization [facility] Address [address] [place] [address]- Care Team Providers Care Caterer'S Aide Name Role Phone Lawrence GERBER, Ruma Bauer Primary Care Physician [place] [facility] [place] [facility] [address] [place] [address]- Allergies, Adverse Reactions, Alerts Substance Reaction Severity Status atenolol Active codeine Active ibuprofen Active doxycycline 1 Moderate Active tetracycline Active clindamycin Active erythromycin Active amoxicillin Active penicillin Active sulfADIAZINE All sulfa drugs Active metoprolol Active aspirin Active predniSONE Allergy to sulfa drugs Activ e caffeine Active sulfa drugs Active shellfish Active Benadryl, Topical 2 Active Keflex Active Cleocin T Active Fosamax Active Cefzil Active Tums Active Augmentin Active Levaquin Active Tylenol Active Bactrim Active Biaxin XL Active Adhesive Bandage rash Active Cats Active Contrast Dye Active [place] Active Dogs Active Dust Active Horses Active Latex rash Active Mold Active Nuts Active Other Food Allergy chicken broccoli other veggetables tomatoes onions cucumbers lettuce peas carrots wheat rash hives itchy Active Soy Products Active fentaNYL Active 1Rash 2Pt States she tolerates Benadryl by mouth fine 11/06/20 Immunizations Given and Recorded Vaccine Date Status Refusal Reason SARS-CoV-2 (COVID-19) mRNA BNT-162b2 vac 08/29/20 Recorded tetanus-diphtheria toxoids (Td) 1 07/06/19 Given tetanus/diphtheria/pertussis, acel(Tdap) 2 01/25/10 Given 1Result Comment: wrong chart 2Admin Note: vis given 03-21-2008 Medications Cane See Instructions, # 1 each, Maintenance, Dx foot pain, 05/29/22 14:59:00 EST, Supply, 150, cm, 05/29/22 13:34:00 EST, Height, 54.1, kg, 06/04/21 9:38:00 EST, Dry Weight Start Date: 05/29/22 Status: Ordered diphenhydrAMINE 50 mg oral tablet 1 tablet = 50 mg, By Mouth, Once, [address] scan, # 1 tablet, 2 Refills, Soft Stop, 10/15/22 14:04:00 EDT, [id number], Partial fill upon patient request if the prescriptionis for a schedule II opioid drug., 148.5, cm, 10/14... Start Date: 10/15/22 Status: Ordered EpiPen 2-Jerman = 0.3 mg, Intramuscular, Once, 0 Refills, Maintenance, 05/29/22 13:39:00 EST, Partial fill upon patient request if the prescription is for a schedule II opioid drug. Start Date: 05/29/22 Status: Ordered famotidine 20 mg oral tablet 20 mg, 1, tablet, By Mouth, Daily, # 5 tablet, Refills 0, Tot. Refills 0, Maintenance, 11/03/22 16:12:00 EDT, Route to Pharmacy Electronically, [facility] #[id number], Partial fill upon patient request if the prescription is for a schedule II opi... Start Date: 11/03/22 Stop Date: 11/08/22 Status: Ordered ibandronate 150 mg oral tablet 1 tablet = 150 mg, By Mouth, Every 30 days, Swallow whole w/6-8oz water 1HR before first food, drink, med-Do not lie down for 1HR & until after first food, # 3 tablet, 2 Refills, Maintenance, 09/08/22 10:06:00 EDT, Tablet, [facility] #[id number],... Start Date: 09/08/22 Status: Ordered lisinopril 5 mg oral tablet 5 mg, 1, tablet, By Mouth, Daily, # 90 tablet, Refills 1, Tot. Refills 1, Maintenance, 09/02/22 9:47:00 EDT, Route to Pharmacy Electronically, [facility] #[id number], 150, cm, 08/27/22 14:11:00 EDT, Height, 45.9, kg, 04/04/23 11:18:00 EDT, Dry We... Start Date: 09/02/22 Stop Date: 03/01/23 Status: Ordered Omeprazole = 40 mg, By Mouth, Daily, 0 Refills, Maintenance, 09/24/21 9:04:00 EDT, Partial fill upon patient request if the prescription is for a schedule II opioid drug. Start Date: 09/24/21 Status: Ordered predniSONE 20 mg oral tablet 2 tablet = 40 mg, By Mouth, Daily, with food or milk, # 10 tablet, 0 Refills, Soft Stop, 11/03/22 16:11:00 EDT, Tablet, [facility][id number], Partial fill upon patient request if the prescription is for a schedule II opioid drug., 148, cm, 070... Start Date: 11/03/22 Stop Date: 11/08/22 Status: Ordered Readi-Cat 2 oral suspension See Instructions, Dispense Two 450mL bottles. Take as instructed., # 900 mL, 0 Refills, Maintenance, 10/21/22 16:47:00 EDT, [id number], Partial fill upon patient request if the prescription is for a schedule II opioid drug., Dispense Two 450mL... Start Date: 10/21/22 Status: Ordered Problem List Condition Confirmation Course Effective Dates Status H ealth Status Informant Abdominal pain, generalized Confirmed Active Acid reflux Confirmed Active Multiple drug allergies Confirmed Active Anxiety Confirmed Active Arthritis Confirmed Active Arthritis of carpometacarpal (CMC) joint of left thumb Confirmed Active CMC arthritis Confirmed Active Mass of cecum Confirmed Active Change in bowel habits Confirmed Active Elevated blood pressure reading without diagnosis of hypertension Confirmed Active Fibromyalgia 1 Confirmed Active Hemorrhoids Confirmed Active History of hemicolectomy- due to a large adenoma polyp- 2022, complicated healing Confirmed Active Hypothyroid Confirmed Active LBBB - Left bundle branch block 2 Confirmed Active Low back pain radiating down leg Confirmed Active MGUS (monoclonal gammopathy of unknown significance) Confirmed Active Osteoporosis Confirmed Active Colonic polyp 3 Confirmed Active Rectal bleeding Confirmed Active Lab test positive for detection of COVID-19 virus 4 Confirmed Active Vaccine reaction 5 Confirmed Active Venous stasis Confirmed Active 1Dr Melo rheum 2[facility] 3colonoscopy 06/21/2019 removed 4 polyps. if positive for ca will need colon resection 4Late April 2020 5Pt. had 2nd Pfizer vaccine on 09/19 and pain in her L hand on 10/07. Social History Social History Type Response Smoking Status Never (less than 100 in lifetime) entered on: 05/30/19 Sex Patient Care team information Care Team Personnel Name: Shadi , Yin Position: [facility] Onco RN Member Role: Primary Care Nurse Name: Ruma Bravo MD Position: [facility] Physician - Primary Care Member Role: PCP Address: Address: [address] [place] [address] Family Medicine [address] Name: Pretty GERBER, Cherry Gaines Position: [facility] SENIOR PATIENT ACCOUNT REPRESENTATIVE MD Member Role: [employer] SENIOR PATIENT ACCOUNT REPRESENTATIVE Physician Address: Address: [address] [place] [address] Women's Health Supervisor Prop Making [address] Name: Maeve Jones RN Position: [facility] RN Member Role: Primary Care Nurse Care Team Related Persons Name: MEG MARTIN Address: home [address] [place] [id number] Name: JAKE RODRIGUES Address: [place] [address]
--- OUTSIDE RECORDS SUMMARY | 2023-05-02 12:09 | XMS_ITS | Continuity of Care Document ---
Author Name Unknown Organization [facility] Address [address] [facility] [place] [address]- Care Team Providers Care Longitudinal Float Operator Name Role Phone Rahat GERBER, Gaye Macias Primary Care Physician Encounter 11/18/21 - 01/10/22 [facility] [address], [facility] [address] [place] [address]- Attending Physician: Zuleima HARDEN, Olivia Admitting Physician: Zuleima HARDEN, Olivia Referring Physician: Zuleima HARDEN, Olivia Allergies, Adverse Reactions, Alerts Substance Reaction Severity Status atenolol Active codeine Active ibuprofen Active doxycycline 1 Moderate Active tetracycline Active clindamycin Active erythromycin Active penicillin Active sulfADIAZINE All sulfa drugs Active vancomycin 2 rash Persistent Mild Active metoprolol Active aspirin Active caffeine Active shellfish Active Benadryl, Topical 3 Active Keflex Active Cleocin T Active Fosamax Active Cefzil Active Tums Active Levaquin Active Tylenol Active Bactrim Active Biaxin XL Active Adhesive Bandage rash Active Cats Active Contrast Dye Active [place] Active Dogs Active Dust Active Horses Active Latex rash Active Mold Active Nuts Active Pork Active Soy Products Active fentaNYL Active 1Rash 2rash 3Pt States she tolerates Benadryl by mouth fine 11/06/20 Immunizations Given and Recorded Vaccine Date Status Refusal Reason SARS-CoV-2 (COVID-19) mRNA BNT-162b2 vac 08/29/20 Recorded tetanus-diphtheria toxoids (Td) 1 07/06/19 Given tetanus/diphtheria/pertussis, acel(Tdap) 2 01/25/10 Given 1Result Comment: wrong chart 2Admin Note: vis given 03-21-2008 Medications Omeprazole = 40 mg, By Mouth, Daily, 0 Refills, Maintenance, 09/24/21 9:04:00 EDT, Partial fill upon patient request if the prescription is for a schedule II opioid drug. Start Date: 09/24/21 Status: Ordered Problem List Condition Effective Dates Status Health Status Inform ant Abdominal pain, generalized(Confirmed) Active Acid reflux(Confirmed) Active Multiple drug allergies(Confirmed) Active Anxiety(Confirmed) Active Arthritis(Confirmed) Active Arthritis of carpometacarpal (CMC) joint of left thumb(Confirmed) Active CMC arthritis(Confirmed) Active Mass of cecum(Confirmed) Active Change in bowel habits(Confirmed) Active Elevated blood pressure read ing without diagnosis of hypertension(Confirmed) Active Fibromyalgia(Confirmed) 1 Active Hypothyroid(Confirmed) Active LBBB - Left bundle branch block(Confirmed) 2 Active Low back pain radiating down leg(Confirmed) Active MGUS (monoclonal gammopathy of unknown significance)(Confirmed) Active Osteoporosis(Confirmed) Active Colonic polyp(Confirmed) 3 Active Rectal bleeding(Confirmed) Active Lab test positive for detect ion of COVID-19 virus(Confirmed) 4 Active Vaccine reaction(Confirmed) 5 Active Venous stasis(Confirmed) Active 1Dr Melo rheum 2[facility] 3colonoscopy 06/21/2019 removed 4 polyps. if positive for ca will need colon resection 4Late April 2020 5Pt. had 2nd Pfizer vaccine on 09/19 and pain in her L hand on 10/07. Social History Social History Type Response Smoking Status Never (less than 100 in lifetime) entered on: 05/30/19 Sex Care Team Personnel Name: Rahat GERBER, Gaye Macias Address: [address] [place] [address]-
--- OUTSIDE RECORDS SUMMARY | 2023-05-02 12:09 | XMS_ITS | Continuity of Care Document ---
Author Name Unknown Organization [facility] Address [address] [place] [address]- Care Team Providers Care Archaeologist Name Role Phone Amado GERBER, Yolanda Lance Primary Care Physician Encounter 04/25/20 - 07/04/20 [facility] [address], [address] [place] [address]- Attending Physician: Yolanda Fischer MD Admitting Physician: Yolanda Fischer MD Referring Physician: Yolanda Fischer MD Allergies, Adverse Reactions, Alerts Substance Reaction Severity Status atenolol Active codeine Active ibuprofen Active tetracycline Active erythromycin Active penicillin Active sulfADIAZINE All sulfa drugs Active metoprolol Active aspirin Active caffeine Active shellfish Active Benadryl, Topical Active Keflex Active Cleocin T Active Cefzil Active Tums Active Levaquin Active Tylenol Active Bactrim Active Biaxin XL Active Cats Active [place] Active Horses Active Latex rash Active Mold Active Nuts Active Pork Active Soy Products Active fentaNYL Active Dust Active Fosamax Active Adhesive Bandage rash Active Contrast Dye Active Dogs Active Immunizations Given and Recorded Vaccine Date Status Refusal Reason tetanus-diphtheria toxoids (Td) 1 07/06/19 Given tetanus/diphtheria/pertussis, acel(Tdap) 2 01/25/10 Given 1Result Comment: wrong chart 2Admin Note: vis given 03-21-2008 Medications Compression Stockings See Instructions, # 2 pair, Refills 2, Tot. Refills 2, Maintenance, surgical, calf length 20-30 mm Hg Dx: venous insufficiency, 10/19/15 16:10:32, Compound Start Date: 10/19/15 Status: Ordered EpiPen 2-Jerman = 0.3 mg, Intramuscular, Once, 0 Refills, Maintenance Start Date: 11/10/12 Status: Ordered ibandronate 150 mg oral tablet 1 tablet = 150 mg, By Mouth, Every 28 days, Swallow whole w/6-8oz water 1HR before first food, drink, med-Do not lie down for 1HR & until after first food, # 3 capsule, 1 Refills, Maintenance, 04/17/20 10:01:00 EST, [id number], [place]... Start Date: 04/17/20 Status: Ordered Multivitamins Multivitamins, Refills 0, Maintenance, 11/01/19 10:09:00 EDT, Supply Start Date: 11/01/19 Status: Ordered Suprep Bowel Prep Kit oral liquid See Instructions, 176ml x 2 as directed before procedure, # 1 kit, 0 Refills, Maintenance, 06/01/2114:51:00 EST, Partial fill upon patient request if the prescription is for a schedule II opioid drug. Start Date: 06/01/20 Status: Ordered Problem List Condition Effective Dates Status Health Status Inform ant Abdominal pain, generalized(Confirmed) Active Acid reflux(Confirmed) Active Anxiety(Confirmed) Active Arthritis(Confirmed) Active Change in bowel habits(Confirmed) Active Fibromyalgia(Confirmed) 1 Active H/O: drug allergy(Confirmed) 2 Active Hypothyroid(Confirmed) Active LBBB - Left bundle branch block(Confirmed) 3 Active Low back pain radiating down leg(Confirmed) Active Osteoporosis(Confirmed) Active Health maintenance examination(Confirmed) Active Medicare annual wellness vis it, subsequent(Confirmed) Active Colonic polyp(Confirmed) 4 Active Rectal bleeding(Confirmed) Active Venous stasis(Confirmed) Active 1Dr Melo rheum 2Dr Soco strategic manager multiple food and drug allergies 3[facility] 4colonoscopy 06/21/2019 removed 4 polyps. if positive for ca will need colon resection Social History Social History Type Response Smoking Status Never (less than 100 in lifetime) entered on: 05/30/19 Sex Female
--- OUTSIDE RECORDS SUMMARY | 2023-05-02 12:09 | XMS_ITS | Continuity of Care Document ---
Author Name Unknown Organization [facility] Address [address] [place] [address]- Care Team Providers Care Meat Team Lead Name Role Phone Yolanda Fischer MD Primary Care Physician Encounter [facility] Date(s): 05/30/20 - 06/29/20 [facility] [address] [place] [id number]- Attending Physician: Admtr, Will Admitting Physician: Admtr, Ar8 Referring Physician: Admtr, Ar8 Allergies, Adverse Reactions, Alerts Substance Reaction Severity Status atenolol Active codeine Active ibuprofen Active tetracycline Active erythromycin Active penicillin Active sulfADIAZINE All sulfa drugs Active metoprolol Active aspirin Active caffeine Active shellfish Active Benadryl, Topical Active Keflex Active Cleocin T Active Fosamax Active Cefzil Active Tums Active Levaquin Active Tylenol Active Bactrim Active Biaxin XL Active Adhesive Bandage rash Active Cats Active Contrast Dye Active [place] Active Dogs Active Dust Active Horses Active Latex rash Active Mold Active Nuts Active Pork Active Soy Products Active fentaNYL Active Immunizations Given and Recorded Vaccine Date [...] capsule, 1 Refills, Maintenance, 04/17/20 10:01:00 EST, [id number], [place]... Start Date: 04/17/20 Status: Ordered Multivitamins Multivitamins, [...] stasis(Confirmed) Active 1Dr Melo rheum 2Dr Soco rehab aide multiple food and drug allergies [facility] 4colonoscopy 06/21/2019 removed 4 polyps. if positive for ca will need colon resection Social History Social History Type Response Smoking Status Never (less than 100 in lifetime) entered on: 05/30/19 Sex Female
--- OUTSIDE RECORDS SUMMARY | 2023-05-02 12:09 | XMS_ITS | Continuity of Care Document ---
Author Name Unknown Organization [facility] Address [address] [place] [address]- Care Team Providers Care Anesthesiologist Attending Name Role Phone Yolanda Fischer MD Primary Care Physician Encounter [facility] Date(s): 06/03/19 - 06/13/19 [facility] [address] [place] [address]- [facility] Attending Physician: Admtr, Ar8 Admitting Physician: Admtr, Ar8 Referring Physician: Admtr, [...] Active Adhesive Bandage rash Active Cats Active [place] Active Dogs Active Dust Active Horses Active Latex rash Active Mold Active Nuts Active Pork Active Soy Products Active fentaNYL Active Immunizations Given and Recorded Vaccine Date Status Refusal Reason tetanus/diphtheria/pertussis, acel(Tdap) 1 01/25/10 Given 1Admin Note: vis given 03-21-2008 Medications Compression Stockings See Instructions, # 2 pair, Refills 2, Tot. Refills 2, Maintenance, surgical, calf length 20-30 mm Hg Dx: venous insufficiency, 10/19/15 16:10:32, Compound Start Date: 10/19/15 Status: Ordered EpiPen 2-Jerman = 0.3 mg, Intramuscular, Once, 0 Refills, Maintenance Start Date: 11/10/12 Status: Ordered NuLYTELY with Flavor Packs oral powder for reconstitution 240 mL, By Mouth, Every 15 minutes, # 4,000 mL, 0 Refills, Maintenance, 06/03/19 10:30:00 EST, [facility] Powder, [id number], 240 mL By Mouth Every 15 minutes, 151, cm, 06/03/19 10:05:00 EST, Height Start Date: 06/03/19 Status: Ordered Problem List Condition Effective Dates Status Health Status Inform ant Abdominal hysterectomy(Confirmed) Active Abdominal pain, generalized(Confirmed) Active Acid reflux(Confirmed) Active Anxiety(Confirmed) Active Arthritis(Confirmed) Active Change in bowel habits(Confirmed) Active Fibromyalgia(Confirmed) 1 Active H/O: drug allergy(Confirmed) 2 Active LBBB - Left bundle branch block(Confirmed) 3 Active Osteoporosis(Confirmed) Active Health maintenance examination(Confirmed) Active Rectal bleeding(Confirmed) Active 1Dr Melo rheum 2Dr Soco ditcher multiple food and drug allergies 3[facility] Social History Social History Type Response Smoking Status Never (less than 100 in lifetime) entered on: 05/30/19 Sex
--- OUTSIDE RECORDS SUMMARY | 2023-05-02 12:09 | XMS_ITS | Continuity of Care Document ---
Author Name Unknown Organization [facility] ter Address [address] [place] [address]- Care Team Providers Care Receipt And Report Clerk Name Role Phone Ruma Bravo MD Primary Care Physician Encounter [place] Date(s): 11/03/22 - 11/03/[address] [address]- Encounter Diagnosis Rash(Discharge Diagnosis) - 11/03/22 Discharge Disposition: A-D/C Home Attending Physician: Esteban Whipple MD Admitting Physician: Esteban Whipple MD Referring Physician: Not on Staff, Referring MD Allergies, Adverse Reactions, Alerts Substance Reaction [...] rash Active Cats Active Contrast Dye Active [place] Active Dogs Active Dust Active Horses Active [...] 2 Refills, Soft Stop, 10/15/22 14:04:00 EDT, [facility] #[id number], Partial fill upon patient request if the [...] 11/03/22 16:12:00 EDT, Route to Pharmacy Electronically, [facility] #[id number], Partial fill upon patient request if the [...] 2 Refills, Maintenance, 09/08/22 10:06:00 EDT, Tablet, [facility] #[id number],... Start Date: 09/08/22 Status: Ordered lisinopril 5 mg oral tablet 5 mg, 1, tablet, By Mouth, Daily, # 90 tablet, Refills 1, Tot. Refills 1, Maintenance, 09/02/22 9:47:00 EDT, Route to Pharmacy Electronically, [facility] #[id number], 150, cm, 08/27/22 14:11:00 EDT, Height, 45.9, kg, 08/05/22 11:18:00 EDT, Dry We... Start Date: 09/02/22 Stop Date: 03/01/23 Status: Ordered Medrol 32 mg oral tablet See Instructions, 1 tab [address] scan, then 1 tab [address] scan., # 2 tablet, 0 Refills, Acute 11/14/22 14:03:00 EDT, 10/15/22 14:02:00 EDT, [facility] #[id number], Partial fill upon patient request if the prescription is for a... Start Date: 10/15/22 Stop Date: 11/14/22 Status: Ordered Omeprazole = 40 mg, By Mouth, Daily, 0 Refills, Maintenance, 09/24/21 9:04:00 EDT, Partial fill upon patient request if the prescription is for a schedule II opioid drug. Start Date: 09/24/21 Status: Ordered predniSONE 20 mg oral tablet 2 tablet = 40 mg, By Mouth, Daily, with food or milk, # 10 tablet, 0 Refills, Soft Stop, 11/03/22 16:11:00 EDT, Tablet, [facility] #[id number], Partial fill upon patient request if the prescription is for a schedule II opioid drug., 148, cm, 07/0... Start Date: 11/03/22 Stop Date: 11/08/22 Status: Ordered Readi-Cat 2 oral suspension See Instructions, Dispense Two 450mL bottles. Take as instructed., # 900 mL, 0 Refills, Maintenance, 10/21/22 16:47:00 EDT, [facility]/pharmacy #[id number], Partial fill upon patient request if the [...] pain in her L hand on 10/07. Diagnosis Diagnosis Type Effective Dates Health Status Clini jennifer Service Informant Rash Discharge Diagnosis 11/03/22 Emergency medicine Vital Signs Most recent to oldest [Reference Range]: 1 2 3 Height 148 cm (11/03/22 4:27 PM) 148 cm (11/03/22 11:57 AM) 148 cm (11/03/22 11:43 AM) Weight 47.5 kg (11/03/22 4:27 PM) 47.5 kg (11/03/22 11:57 AM) Oxygen Saturation [94-100 %] 98 % (11/03/22 4:27 PM) 100 % (11/03/22 11:43 AM) 99 % (11/03/22 11:39 AM) Pulse Rate [55-90 bpm] 95 bpm *H* (11/03/22 4:27 PM) 104 bpm *H* (11/03/22 11:43 AM) 115 bpm *H* (11/03/22 11:39 AM) Body Mass Index [18.5-24.99 kg/m2] 21.69 kg/m2 (11/03/22 4:27 PM) Blood Pressure [90-138/55-84 mm Hg] 137/88mm Hg (11/03/22 4:27 PM) 142/77mm Hg *H* (11/03/22 11:43 AM) Respiratory Rate [16-30 br/min] 16 br/min (11/03/22 4:27 PM) 16 br/min (11/03/22 11:43 AM) Temperature [96.8-100.4 DegF] 98.4 DegF (11/03/22 4:27 PM) 98.6 DegF (11/03/22 11:43 AM) Mode of Delivery (Oxygen) Room air (11/03/22 4:27 PM) Room air (11/03/22 11:43 AM) Room air (11/03/22 11:39 AM) Blood pressure sites Arm, right (11/03/22 4:27 PM) Arm, left (11/03/22 11:43 AM) Temperature Route Oral (11/03/22 4:27 PM) Oral (11/03/22 11:43 AM) Dry Weight 47.5 kg (11/03/22 4:27 PM) 47.5 kg (11/03/22 11:57 AM) 47.5 kg (11/03/22 11:43 AM) Dry Weight Obtained Via Patient/family s tated (11/03/22 11:43 AM) Social History Social History Type Response Smoking Status Never (less than 100 in lifetime) entered on: 05/30/19 Sex Note * Courtney Purvis: PERFORM Event Display: Patient Education Leaflets Authored Date: [id number] Medicine Reaction: Allergic ?? [id number] Medicine Reaction: Allergic You are having an allergic reaction to a medicine you have taken. This may cause an itchy rash and sometimes swelling of various parts of the body. It could also cause trouble swallowing or breathing. The rash may take a few hours or up to??2 weeks to go away. In the future, remember to tell all [facility] healthcare providers and your pharmacist about your allergy to this medicine so that medicinesof this type won't be used again. Any??medicine can cause an allergic reaction. But most allergic reactions are caused by: ??? Penicillin and related medicines ??? Antibiotics containing sulfonamides (sulfa medicines) ??? Aspirin ??? Ibuprofen or other nonsteroidal anti- inflammatory drugs (NSAIDs) ??? Seizure medicines Vaccines may also trigger allergies.?? People whose parents or siblings have allergies are at a higher risk of developing a medicine allergy. Allergy testing may sometimes be needed to figure out the cause. Symptoms may occur within minutes, hours, or even weeks after exposure to the medicine. It can be amild or severe reaction, or potentially life- threatening.??Most of us think of allergic reactions when we have a rash or itchy skin. Symptoms can include: ??? Rash, hives, redness, welts, blisters ??? Itching, burning, stinging, pain ??? Dry, flaky, cracking, scaly skin ??? Belly (abdominal) cramps, nausea or vomiting, or stomach pain ??? Fever.??Sometimes fever is the only symptom of a medicine reaction. In older adults, the risk of fever increases with the number of medicines the person takes. More severe symptoms include: ??? Swelling of the face or lips, or drooling ??? Trouble swallowing, feeling like your throat is closing ??? Trouble breathing, wheezing ??? Hoarse voice or trouble speaking ??? Severe nausea or vomiting or diarrhea ??? Feeling faint or lightheaded, rapid heart rate ??? Blistering of the skin or ulcers in the mouth or on the genitals If you have any severe symptoms, call 911 right away. Home care The goal of treatment is to help relieve the symptoms and get you feeling better. Mild to medium medicine reactions usually respond quickly to taking antihistamines or steroids and stopping the medicine. Talk to your provider about medicines that are right for you. The rash will usually fade over several days. But it can sometimes last a couple of weeks. Over the next couple of days, there may betimes when it gets a little worse and then better again. Here are some things to do: ??? Dispose ofthe medicine safely and don???t take it again. The next reaction could be the same or worse. Make sure you ask what related medicines you should also avoid and what medicines you can use as a replacement. ??? Call your healthcare provider to discuss adding this medicine's allergy reaction to your electronic medical record. ??? If you had a severe reaction (called anaphylaxis), your provider may give you an epinephrine auto-injector kit. Epinephrine will stop anaphylaxis.?? Before??you leave thespital, make sure you know when and how to use this medicine. ??? If the reaction was severe, consider wearing a medical alert bracelet or necklace. ??? When getting a new medicine, always tell thehealthcare provider that you are allergic to this medicine. Make certain the provider writes it down in your medical record. ??? Don't wear tight clothing and stay away from anything that heats up your skin (hot showers or baths, direct sunlight). Heat will make itching worse. ??? An ice pack will relieve local areas of intense itching and redness.??To make an ice pack, put ice cubes in a plasticbag that seals at the top. Wrap the bag in a??clean, thin??towel or cloth. Apply it to the affectedarea for 5 to 10 minutes. Don???t put ice directly on the skin. ??? Don't scratch the affected area. Scratching may worsen the reaction. It can damage your skin and lead to an infection. Always checkthe affected site for signs of an infection. ??? Your provider may give you a prescription antihistamine. Take it as directed by your provider. ??? If you are not given a prescription antihistamine, o ral??diphenhydramine is an jmri-oqv-lyoluuz antihistamine available at pharmacies and grocery stores. This may be used to reduce itching if large areas of the skin are involved.??This antihistamine may make you sleepy, so be careful using it in the daytime or when going to school, working, or driving. Note:??Don???t use??diphenhydramine if you have glaucoma or if you have trouble peeing due to anenlarged prostate. There are other antihistamines that cause less drowsiness and??are a good choicefor daytime use. Ask your pharmacist or healthcare provider for suggestions. ??? Don't??use diphenhydramine cream on your skin. It can cause a worse skin reaction??for some people. ??? Contact your healthcare provider and ask what can be used on the affected area to help decrease the itching. ?? Follow-up care Follow up with your healthcare provider as advised if your symptoms do not continue to improve or they get worse. ?? Call 911 Call 911 right away if any of these occur: ??? Shortness of breath ??? Cool, moist, pale skin ??? Swelling in the face, eyelids, mouth, throat, tongue, or lips ??? Drooling ??? Trouble breathing or swallowing, wheezing ? Hoarse voice or trouble speaking? Fainting or loss of consciousness??? Rapid heart rate ??? Feeling of dizziness or weakness or a sudden drop in blood pressure ??? Feeling of doom ??? Feeling lightheaded ??? Severe stomach pain, nausea, vomiting, or diarrhea ?? When to get medical advice Call your healthcare provider or get medical care right away if any of these occur: ??? Symptoms that last, get worse, or go away and come back ??? Nausea, belly cramps, or stomach pain ??? Spreadingareas of itching, redness, or swelling ??? Skin blisters, or sores or ulcers in the mouth or on thegenitals ??? Signs of infection: o Spreading redness o Increased pain or swelling o Fever of 100.4??F (38??C) or higher lasting for 24 to 48 hours, or as directed by your provider o Fluid or colored drainage from the??affected??area ?? Last Reviewed Date: 2021 ?? [employer]. All rights reserved. This information is not intended as a substitute for professional medical care. Always follow your healthcare professional's instructions. ?? * Courtney Purvis: PERFORM Event Display: Patient Education Leaflets Authored Date: [id number] Famotidine Oral Tablet ?? [id number] Famotidine Oral Tablet Brands: Pepcid Uses This medicine is used for the following purposes: ??? heartburn ??? inflammation of stomach ??? prevent heartburn ??? prevent indigestion ??? stomach acid ??? stomach acid reflux ??? ulcers in stomach or intestines ??? ulcers in stomach or intestines ?? Instructions This medicine may be taken with or without food. Swallow with a full glass (8 oz) of water unless your doctor gives you different instructions. Keep the medicine at room temperature. Avoid heat and direct light. Keep the medicine away from heat and light. This medicine can reduce the absorption of other medicines. Talk to your doctor or pharmacist aboutthe best times to use this product. It is important that you keep taking each dose of this medicine on time even if you are feeling well. If you forget to take a dose on time, take it as soon as you remember. If it is almost time for thenext dose, do not take the missed dose. Return to your normal schedule. Do not take 2 doses at one time. Drug interactions can change how medicines work or increase risk for side effects. Tell your healthcare providers about all medicines taken. Include prescription and iaog-vba-qvzxzns medicines, vitamins, and herbal medicines. Speak with your doctor or pharmacist before starting or stopping any medicine. Tell your doctor if symptoms do not get better or if they get worse. ?? Cautions Tell your doctor and pharmacist if you ever had an allergic reaction to a medicine. Do not use the medication any more than instructed. Tell the doctor or pharmacist if you are , planning to be , or . Do not share this medicine with anyone who has not been prescribed this medicine. ?? Side Effects The following is a list of some common side effects from this medicine. Please speak with your doctor about what you should do if you experience these or other side effects. ??? constipation or diarrhea ??? headaches Call your doctor or get medical help right away if you notice any of these more serious side effects: ??? bleeding or bruising ??? chest pain ??? confusion ??? dizziness ??? fainting ??? fast or irregular heart beats ??? seizures ??? shortness of breath A few people may have an allergic reaction to this medicine. Symptoms can include difficulty breathing, skin rash, itching, swelling, or severe dizziness. If you notice any of these symptoms, seek medical help quickly. ?? Extra Please speak with your doctor, nurse, or pharmacist if you have any questions about this medicine. ?? [email or web address] IMPORTANT NOTE: This document tells you briefly how to take your medicine, but it does not tell youall there is to know about it. Your doctor or pharmacist may give you other documents about your medicine. Please talk to them if you have any questions. Always follow their advice. There is a more complete description of this medicine available in Turkmen. Scan this code on your smartphone or tablet or use the web address below. You can also ask your pharmacist for a printout. If you have any questions, please ask your pharmacist. The display and use of this drug information is subject to Terms of Use. Copyright(c) 2022 [employer]. ?? [employer]. All rights reserved. This information is not intended as a substitute for professional medical care. Always follow your healthcare professional's instructions. ?? * Blanche BARRERA, Courtney Rodgers: PERFORM Event Display: Patient Education Leaflets Authored Date: [id number] Prednisone Oral Tablet ?? [id number] Prednisone Oral Tablet Brands: Deltasone Uses This medicine is used for the following purposes: ??? allergic reaction ??? autoimmune disorder ???blood disorder ??? endocrine disorder ??? inflammatory disease ??? immune suppression ??? cancer ??? COVID-19 (coronavirus) ?? Instructions Take the medicine with food. Store at room temperature away from heat, light, and moisture. Do not keep in the bathroom. It is important that you keep taking each dose of this medicine on time even if you are feeling well. If you forget to take a dose on time, take it as soon as you remember. If it is almost time for thenext dose, do not take the missed dose. Return to your normal schedule. Do not take 2 doses at one time. Drug interactions can change how medicines work or increase risk for side effects. Tell your healthcare providers about all medicines taken. Include prescription and qsmv-faq-abkcepy medicines, vitamins, and herbal medicines. Speak with your doctor or pharmacist before starting or stopping any medicine. Tell your doctor if symptoms do not get better or if they get worse. This medicine may affect your blood sugar levels. If you have diabetes, talk to your doctor before changing the dose of your diabetes medicine. This medicine may affect the strength of your bones. If you have or are at increased risk for osteoporosis (weakening of the bones), your doctor may recommend foods with calcium and vitamin D. Keep all appointments for medical exams and tests while on this medicine. ?? Cautions Tell your doctor and pharmacist if you ever had an allergic reaction to a medicine. This medicine may cause serious bleeding from the stomach or bowels. Stop this medicine and call your doctor immediately if you see any signs of bleeding. Bleeding can cause pain in the stomach, vomiting up liquid that looks like coffee grounds, and red or dark tarry stools. Do not use the medication any more than instructed. Please check with your doctor before drinking alcohol while on this medicine. Avoid smoking while on this medicine. Smoking may increase your risk for stomach bleeding. This medicine may reduce your body's ability to fight infections. Avoid contact with people with colds, flu or other infections. Contact your doctor if you develop fever, cough, sore throat, or chills. Speak with your health care provider before receiving any vaccinations. This medicine passes into breast milk. Ask your doctor before . During , this medicine should be used only when clearly needed. Talk to your doctor about the risks and benefits. Always carry an ID card or wear a medical alert bracelet indicating your medical condition. Do not share this medicine with anyone who has not been prescribed this medicine. ?? Side Effects The following is a list of some common side effects from this medicine. Please speak with your doctor about what you should do if you experience these or other side effects. ??? acne ??? agitated feeling or trouble sleeping ??? decreased appetite ??? high blood sugar ??? high blood pressure ??? nausea and vomiting ??? stomach upset or abdominal pain Call your doctor or get medical help right away if you notice any of these more serious side effects: ??? bleeding or bruising ??? bone pain ??? coughing up blood or vomit that looks like coffee grounds ??? depression or feeling sad ??? swelling of the legs, feet, and hands ??? fever or chills ??? fast or irregular heart beats ??? menstruation changes (missed or fewer periods) ??? mood changes ??? muscle pain or cramps ??? seizures ??? thinning of the skin ??? severe stomach or bowel pain ??? dark, tarry stool ??? unusual or unexplained tiredness or weakness ??? increased urinary frequency ??? blurring or changes of vision ??? sudden or unexplained weight gain ??? slow wound healing A few people may have an allergic reaction to this medicine. Symptoms can include difficulty breathing, skin rash, itching, swelling, or severe dizziness. If you notice any of these symptoms, seek medical help quickly. ?? Extra Please speak with your doctor, nurse, or pharmacist if you have any questions about this medicine. ?? [email or web address] IMPORTANT NOTE: This document tells you briefly how to take your medicine, but it does not tell youall there is to know about it. Your doctor or pharmacist may give you other documents about your medicine. Please talk to them if you have any questions. Always follow their advice. There is a more complete description of this medicine available in Turkmen. Scan this code on your smartphone or tablet or use the web address below. You can also ask your pharmacist for a printout. If you have any questions, please ask your pharmacist. The display and use of this drug information is subject to Terms of Use. Copyright(c) 2022 [employer]. ?? [employer]. All rights reserved. This information is not intended as a substitute for professional medical care. Always follow your healthcare professional's instructions. ?? Patient Care team information Care Team Personnel Name: Yin Hsu Position: [facility] Onco RN Member Role: Primary Care Nurse Name: Ruma Bravo MD Position: [facility] Physician - Primary Care Member Role: PCP Address: Address: [address] [place] [address] [address] Name: Cherry Olsen MD Position: [facility] FURNACE ROASTER MD Member Role: [employer] FURNACE ROASTER Physician Address: Address: [address] [place] [address] [facility] Gatehouse Attendant [address] Name: Maeve Jones RN Position: [facility] RN Member Role: Primary Care Nurse Name: Wali Awad RN Position: [facility] ED RN W/OE and Tasks Member Role: Patient Care Provider Name: Esteban Whipple MD Position: [facility] ED Medicine MD Member Role: Admitting Physician Address: Address: [address] [place] [id number] Name: Courtney Purvis Position: [facility] Associate Professional Member Role: Physician Digital Media Sales Consultant Address: Address: [address] [place] [address] Name: Khloe Pimentel Position: [facility] ED TA [facility] Member Role: Starchmaker Care Team Related Persons Name: MEG MARTIN Address: [address] [address] Name: JAKE RODRIGUES Address: [place] [address]
--- OUTSIDE RECORDS SUMMARY | 2023-05-02 12:09 | XMS_ITS | Continuity of Care Document ---
Author Name Unknown Organization [facility] Address [address] [place] [address]- Care Team Providers Care Brazing Machine Operator Helper Name Role Phone Yolanda Fischer MD Primary Care Physician Encounter [facility] Date(s): 07/12/20 - 08/11/20 [facility] [address] [place] [address]- Attending Physician: Will Wilson Admitting Physician: Admtr, [id number] Referring Physician: Admtr, [...] rash Active Cats Active Contrast Dye Active [place] Active Dogs Active Dust Active Horses Active [...] 3 capsule, 1 Refills, Maintenance, 04/17/20 10:01:00 [id number], [place]... Start Date: 04/17/20 Status: Ordered Multivitamins Multivitamins, Refills 0, Maintenance, 11/01/19 10:09:00 EDT, Supply Start Date: 11/01/19 Status: Ordered Problem List Condition Effective Dates [...] stasis(Confirmed) Active 1Dr Melo rheum 2Dr [place] geology instructor multiple food and drug allergies 3[facility] 4colonoscopy 06/21/2019 removed 4 polyps. if positive for ca will need colon resection Social History Social History Type Response Smoking Status Never (less than 100 in lifetime) entered on: 05/30/19 Sex Female
--- OUTSIDE RECORDS SUMMARY | 2023-05-02 12:09 | XMS_ITS | Continuity of Care Document ---
Author Name Unknown Organization [facility] Address [address] [place] [address]- Care Team Providers Care Art Historian Name Role Phone Rahat GERBER, Gaye Macias Primary Care Physician [place] [facility] [place] - 02/26/22 [facility] [address] [place] [address]- Allergies, Adverse Reactions, Alerts Substance Reaction Severity Status atenolol Active codeine Active ibuprofen Active doxycycline 1 Moderate Active tetracycline Active clindamycin Active erythromycin Active penicillin Active sulfADIAZINE All sulfa drugs Active metoprolol Active aspirin Active caffeine Active shellfish Active Benadryl, Topical 2 Active Keflex Active Cleocin T Active Fosamax Active Cefzil Active Tums Active Levaquin Active Tylenol Active Bactrim Active Biaxin XL Active Adhesive Bandage rash Active Cats Active Contrast Dye Active [place] Active Dogs Active Dust Active Horses Active [...] chart 2Admin Note: vis given 03-21-2008 Medications lisinopril 5 mg oral tablet 5 mg, 1, tablet, By Mouth, Daily, new start 01/22/22, # 30 tablet, Refills 2, Tot. Refills 2, Maintenance, 01/22/22 15:19:00 EDT, [id number], Partialfill upon patient request if the prescription is fo... Start Date: 01/22/22 Stop Date: 04/22/22 Status: Ordered Omeprazole = 40 mg, By Mouth, Daily, 0 Refills, Maintenance, 09/24/21 9:04:00 EDT, Partial fill upon patient request if the prescription is for a schedule II opioid drug. Start Date: 09/24/21 Status: Ordered Problem List Condition Confirmation Course [...] hypertension Confirmed Active Fibromyalgia 1 Confirmed Active Hypothyroid Confirmed Active LBBB - [...] on: 05/30/19 Sex Patient Care team information Personnel Name: Gaye Giang MD Address: Address: [address]
--- OUTSIDE RECORDS SUMMARY | 2023-05-02 12:09 | XMS_ITS | Continuity of Care Document ---
Author Name Unknown Organization [facility] Address [address] [place] [address]- Care Team Providers Care Accounts Payable Bookkeeper Name Role Phone Rahat GEREBR, Gaye Macias Primary Care Physician ( [phone] Encounter [facility] Date(s): 05/29/22 - 06/05/22 [facility] [address] [place] [address]- Encounter Diagnosis Arthritis(Discharge Diagnosis) - 05/29/22 Fibromyalgia(Discharge Diagnosis) - 05/29/22 Low back pain radiating down leg(Discharge Diagnosis) - 05/29/22 Venous insufficiency of leg(Discharge Diagnosis) - 05/29/22 Attending Physician: Lawrence GERBER, Ruma Bauer Allergies, Adverse Reactions, Alerts Substance Reaction Severity [...] rash Active Cats Active Contrast Dye Active Wanda Active Dogs Active Dust Active Horses Active [...] Dry Weight Start Date: 05/29/22 Status: Ordered EpiPen 2-Jerman = 0.3 mg, Intramuscular, Once, 0 Refills, Maintenance, 05/29/22 13:39:00 EST, Partial fill upon patient request if the prescription is for a schedule II opioid drug. Start Date: 05/29/22 Status: Ordered linezolid 600 mg oral tablet 0 Refills, Maintenance, 05/08/22 15:14:00 EST, Partial fill upon patient request if the prescription is for a schedule II opioid drug. Start Date: 05/08/22 Status: Ordered lisinopril 5 mg oral tablet 5 mg, 1, tablet, By Mouth, Daily, new start 01/22/22, # 30 tablet, Refills 2, Tot. Refills 2, Maintenance, 01/22/22 15:19:00 EDT, Route to Pharmacy Electronically, [facility] #[id number], Partialfill upon patient request if the prescription is fo... Start Date: 01/22/22 Stop Date: 04/22/22 Status: Ordered metroNIDAZOLE 500 mg oral tablet 1 tablet = 500 mg, By Mouth, 3 times a day, # 15 tablet, 0 Refills, Maintenance, 02/27/22 16:27:00 EDT, Tablet, [facility] #[id number], Partial fill upon patient request if the prescription is for a schedule II opioid drug., 150, cm, 02/27/22 15:... Start Date: 02/27/22 Stop Date: 03/04/22 Status: Ordered Omeprazole = 40 mg, By [...] Diagnosis Diagnosis Type Effective Dates Health Status Clinical Service Informant Arthritis Discharge Diagnosis 05/29/22 Fibromyalgia Discharge Diagnosis 05/29/22 Low back pain radiating down leg Discharge Diagnosis 05/29/22 Venous insufficiency of leg Discharge Diagnosis 05/29/22 Vital Signs Most recent to oldest [Reference Range]: 1 Height 150 cm (05/29/22 1:34 PM) Weight 47.3 kg (05/29/22 1:34 PM) Oxygen Saturation [94-100 %] 100 % (05/29/22 1:34 PM) Pulse Rate [55-90 bpm] 90 bpm (05/29/22 1:34 PM) Body Mass Index [18.5-24.99 kg/m2] 21.02 kg/m2 (05/29/22 1:34 PM) Blood Pressure [90-138/55-84 mm Hg] 113/ 74mm Hg (05/29/22 1:34 PM) Blood pressure sites Arm, right (05/29/22 1:34 PM) Weight Obtained Via Standing scale (05/29/22 1:34 PM) Social History Social History Type Response Smoking Status Never (less than 100 in lifetime) entered on: 05/30/19 Sex Note * Parth Hanson: PERFORM, SIGN, VERIFY Event Display: Patient Education/Instruction Authored Date: [id number] [facility] *[facility] Clinical Summary Name NAUN MARTIN Age 77 Years 1945 PCP Rahat GERBER, Gaye Macias PCP Visit Date 05/29/2022 13:15:00 Additional Instructions: Scheduled Appointments?? Future Appointments ?*[facility] ?Phone:??--?Fax:??-- ?Appt. Date:??05/29/2022?1:00 PM ?Scheduled Provider:??Laury Espinosa MD ?*[facility] ?[address],??[place],??[address] ?Phone:??--?Fax:??-- ?Appt. Date:??06/09/2022?11:20 AM ?Scheduled Provider:??Merced Antunez MD ?*[facility] ?[address],??[place],??[address] ?Phone:??--?Fax:??-- ?Appt. Date:??07/14/2022?9:30 AM ?Scheduled Provider:??Savanah Charlton Follow-Up Instructions ?? Diagnosis Medications: Please continue your medications until treatment is completed or stopped by your provider. Discuss any questions related to medications with your provider. Medications to Continue with No Changes These medications were not printed or sent to your pharmacy EPINEPHrine (EpiPen 2-Jerman) 0.3 Milligram Intramuscular once. Next Dose: Linezolid (linezolid 600 mg oral tablet) Next Dose: Lisinopril (lisinopril 5 mg oral tablet) 1 tab(s) Oral Daily for 30 Days. new start 01/22/22. Refills: 2. Next Dose: Metronidazole (metroNIDAZOLE 500 mg oral tablet) 1 tab(s) Oral 3 times a day for 5 Days. Refills: 0. Next Dose: Omeprazole 40 Milligram Oral Daily. Next Dose: Allergy Info:?? fentaNYL; Soy Products; Other Food Allergy; Nuts; Mold; Latex; Horses; Dust; Dogs; Wanda; Contrast Dye; Cats; Adhesive Bandage; Biaxin XL; Bactrim; Tylenol; Levaquin; Tums; Cefzil; Fosamax; Cleocin T; Keflex; Benadryl, Topical; shellfish; caffeine; aspirin; metoprolol; sulfADIAZINE; penicillin; erythromycin; clindamycin; tetracycline; doxycycline; ibuprofen; codeine; atenolol Medications Given This Visit Future Orders ?No future orders Vital Signs Height 150 cm Weight 47.3 kg BMI 21.02 kg/m2 Blood Pressure 113 mm Hg/74 mm Hg Temperature Pulse Rate 90 bpm Respiratory Rate 02 Sat Mode of Delivery 100 %/ You can now view a summary of your hospital visit from the comfort of your home through a free online portal called [employer]. [employer] is a website that allows you to securely view your medical information including discharge summary, medications and follow-up visits. ??You can alsosend a secure electronic message to your doctor???s office to request appointments, renew medications or just ask a question. You can enroll at [email or web address] or register during your next office visit. Disclaimer:?? The information provided is of a general nature and is intended to be used in conjunction with the recommendations and advice of your health care practitioner. ??Every effort has been made to ensure that the information provided is accurate and complete at the time it is provided to you however, as your needs change, or, as new ??information becomes available, different or additional instructions may be required. If you have questions, please consult with your primary care provider or pharmacist, as appropriate. ??This information is not intended to serve as substitution for assessment and evaluation by a qualified health care provider. If you do not have a primary care provider, you may find a [facility] provider by calling [employer] at [phone]. For information about the plan of care including goals and instructions for your diagnosis, please see the patient education orders section of this document. Patient Education Materials?? The content of this educational material or handout may have been modified, supplemented, or adapted from its original content and format to support your individualized medical care. Patient Care team information Care Team Personnel Name: Yin Hsu Position: [facility] Onco RN Member Role: Primary Care Nurse Name: Gaye Giang MD Position: [facility] Primary Care Physician Member Role: PCP Address: Address: [address] [place] [address] Family [address] Name: Consuelo Louis RN Position: [facility] RN Member Role: Primary Care Nurse Name: Cherry Olsen MD Position: [facility] BLEACH LIQUOR MAKER MD Member Role: Lifetime BLEACH LIQUOR MAKER Physician Address: Address: [address] [place] [address] Women's Health Assistant Customer Service Manager - [address] Name: Maeve Jones RN Position: [facility] RN Member Role: Primary Care Nurse Care Team Related Persons Name: MEG MARTIN Address: [address] [address] Name: JAKE RODRIGUES Address: [place] [address]
--- OUTSIDE RECORDS SUMMARY | 2023-05-02 12:09 | XMS_ITS | Continuity of Care Document ---
Author Name Unknown Organization [facility] Address [address] [place] [address]- Care Team Providers Care Manager Med Surg Name Role Phone Rahat GERBER, Gaye Macias Primary Care Physician Encounter [facility] Date(s): 12/02/21 - 01/01/22 [facility] [address] [place] [address]- Allergies, Adverse Reactions, Alerts Substance Reaction Severity [...] rash Active Cats Active Contrast Dye Active [place] Active Dogs Active Dust Active Horses Active [...] Name: Rahat GERBER, Gaye Macias Address: [address] [place] [address]-
--- OUTSIDE RECORDS SUMMARY | 2023-05-02 12:09 | XMS_ITS | Continuity of Care Document ---
Author Name Unknown Organization [facility] Address [address] [place] [address]- Care Team Providers Care Facilities Operator Name Role Phone Lawrence GERBER, Ruma Bauer Primary Care Physician Encounter [facility] Date(s): 12/22/22 - 01/21/23 [facility] [address] [place] [address]- Allergies, Adverse Reactions, Alerts Substance Reaction Severity [...] rash Active Cats Active Contrast Dye Active [place] Active Dogs Active Dust Active Horses Active Latex rash Active Mold Active Nuts Active Other Food Allergy chicken broccoli other veggetables tomatoes onions cucumbers lettuce peas carrots wheat rash hives itchy Active Soy Products Active fentaNYL Active 1Rash 2Pt States she tolerates Benadryl by mouth fine 11/06/20 Immunizations Given and Recorded Vaccine Date Status Refusal Reason SARS-CoV-2 (COVID-19) mRNA BNT-162b2 vac 08/29/20 Recorded tetanus/diphtheria/pertussis, acel(Tdap) 1 01/25/10 Given 1Admin Note: vis given 03-21-2008 Medications baclofen 5 mg oral tablet = 0.5 mg, By Mouth, 3 times a day, # 45 tablet, 1 Refills, Maintenance, 01/19/23 10:23:00 EDT, Tablet, [facility] #[id number], Partial fill upon patient request if the prescription is for a schedule II opioid drug., 152, cm, 01/19/23 9:53:00 EDT,... Start Date: 01/19/23 Stop Date: 03/20/23 Status: Ordered Cane See Instructions, # 1 each, Maintenance, Dx foot pain, 05/29/22 14:59:00 EST, Supply, 150, cm, 05/29/22 13:34:00 EST, Height, 54.1, kg, 06/04/21 9:38:00 EST, Dry Weight Start Date: 05/29/22 Status: Ordered diclofenac 1% topical gel 1 application, Topically, 4 times a day, PRN Pain , Moderate, # 100 Gm, 0 Refills, Maintenance, 12/17/22 11:48:00 EDT, [facility] #[id number], Partial fill upon patient request if the prescription is for a schedule II opioid drug., 152, cm,... Start Date: 12/17/22 Status: Ordered diclofenac 1% topical gel 1 application, Topically, 4 times a day, # 100 Gm, 0 Refills, Maintenance, 12/25/22 11:12:00 EDT, [facility][id number], Partial fill upon patient request if the prescription is for a schedule II opioid drug., 152, cm, 12/25/22 10:26:00 EDT... Start Date: 12/25/22 Status: Ordered diphenhydrAMINE 50 mg oral tablet 1 tablet = 50 mg, By Mouth, Once, [address] scan, # 1 tablet, 2 Refills, Soft Stop, 10/15/22 14:04:00 EDT, [facility] #[id number], Partial fill upon patient request if the prescriptionis for a schedule II opioid drug., 148.5, cm, 10/14... Start Date: 10/15/22 Status: Ordered duloxetine 30 mg oral enteric coated capsule 1 capsule = 30 mg, By Mouth, Daily, Take one tablet per day (30 mg) for management of chronic pain.After two weeeks, may increase to 2 tablets (60 mg) per day if desired effect not reached by one tablet per day., # 60 capsule, 0 Refills, Maintenance,... Start Date: 01/19/23 Stop Date: 03/20/23 Status: Ordered EpiPen 2-Jerman = 0.3 mg, Intramuscular, Once, 0 Refills, Maintenance, 05/29/22 13:39:00 EST, Partial fill upon patient request if the prescription is for a schedule II opioid drug. Start Date: 05/29/22 Status: Ordered famotidine 20 mg oral tablet 20 mg, 1, tablet, By Mouth, Daily, # 5 tablet, Refills 0, Tot. Refills 0, Maintenance, 11/03/22 16:12:00 EDT, Route to Pharmacy Electronically, [facility] #[id number], Partial fill upon patient request if the [...] 2 Refills, Maintenance, 09/08/22 10:06:00 EDT, Tablet, [facility] #[id number],... Start Date: 09/08/22 Status: Ordered lisinopril 5 mg oral tablet 5 mg, 1, tablet, By Mouth, Daily, # 90 tablet, Refills 1, Tot. Refills 1, Maintenance, 09/02/22 9:47:00 EDT, Route to Pharmacy Electronically, [facility] #[id number], 150, cm, 08/27/22 14:11:00 EDT, Height, 45.9, kg, 08/05/22 11:18:00 EDT, Dry We... Start Date: 09/02/22 Stop Date: 03/01/23 Status: Ordered Omeprazole = 40 mg, By Mouth, Daily, 0 Refills, Maintenance, 09/24/21 9:04:00 EDT, Partial fill upon patient request if the prescription is for a schedule II opioid drug. Start Date: 09/24/21 Status: Ordered physical therapy physical therapy, See Instructions, # 1 each, Refills 0, Tot. Refills 0, Maintenance, 2 to 3 sessions per week for 8 weeks, adjust as needed. Patient has acute on chronic neck pain and fibromyalgia.,12/17/22 11:53:00 EDT, Supply Start Date: 12/17/22 Status: Ordered Readi-Cat 2 oral suspension See Instructions, Dispense Two 450mL bottles. Take as instructed., # 900 mL, 0 Refills, Maintenance, 10/21/22 16:47:00 EDT, [id number], Partial fill upon patient request if the [...] Active Change in bowel habits Confirmed Active Multilevel degenerative disc disease Confirmed Active Elevated blood pressure reading without diagnosis of hypertension Confirmed Active Fibromyalgia 1 Confirmed Active Hemorrhoids Confirmed Active History of hemicolectomy- due to a large adenoma polyp- 2022, complicated healing Confirmed Active Hypothyroid Confirmed Active Cervicothoracic kyphosis 2 Confirmed Active LBBB - Left bundle branch block 3 Confirmed Active Low back pain radiating down leg Confirmed Active MGUS (monoclonal gammopathy of unknown significance) Confirmed Active Osteoporosis Confirmed Active Colonic polyp 4 Confirmed Active Rectal bleeding Confirmed Active Renal mass of unknown nature 5 Confirmed Active Lab test positive for detection of COVID-19 virus 6 Confirmed Active Vaccine reaction 7 Confirmed Active Venous stasis Confirmed Active 1Dr Melo rheum 2Revealed on MRI 01/01/2023 3[facility] 4colonoscopy 06/21/2019 removed 4 polyps. if positive for ca will need colon resection 5Found on CT 12/2022, subsequent MRI wihtout findings. Radiology Consult line consulted- recommending repeat CT with Renal Mass Protocol in one year. CT ordered. 6Late April 2020 7Pt. had 2nd Pfizer vaccine on 09/19 and pain in her L hand on 10/07. Social History Social History Type Response Smoking Status Never (less than 100 in lifetime) entered on: 05/30/19 Sex Patient Care team information Care Team Personnel Name: Yin Hsu Position: [facility] RN Member Role: Primary Care Nurse Name: BravoRuma douglas MD Position: [facility] Physician - Primary Care Member Role: PCP Address: Address: [address] [place] [address] [place] [address]- Name: Shikha Rivera RN Position: [facility] RN Member Role: Primary Care Nurse Name: Cherry Olsen MD Position: [facility] ETYMOLOGY TEACHER MD Member Role: [employer] ETYMOLOGY TEACHER Physician Address: Address: [address] [place] [address] Women's [facility] Supervisor [employer] [place] [address]- Name: Maeve Jones RN Position: [facility] RN Member Role: Primary Care Nurse Care Team Related Persons Name: MEG MARTIN Address: home [address] [place] [id number] Name: JAKE RODRIGUES Address: [place] [address]
--- OUTSIDE RECORDS SUMMARY | 2023-05-02 12:09 | XMS_ITS | Continuity of Care Document ---
Author Name Unknown Organization [facility] Address [address] [address]- Care Team Providers Care Steam Clothes Press Operator Name Role Phone Rahat GERBER, Gaye Macias Primary Care Physician Encounter [facility] AC[facility] R [id number] Date(s): 11/27/21 - 12/04/21 [facility] [address] [address]- Attending Physician: Savanah Charlton Admitting Physician: Savanah Charlton Referring Physician: Savanah Charlton Allergies, Adverse Reactions, Alerts Substance Reaction Severity Status atenolol Active codeine Active ibuprofen Active doxycycline 1 Moderate Active tetracycline Active penicillin Active aspirin Active shellfish Active Keflex Active Cleocin T Active clindamycin Active erythromycin Active sulfADIAZINE All sulfa drugs Active vancomycin 2 rash Persistent Mild Active metoprolol Active caffeine Active Benadryl, Topical 3 Active Fosamax Active Cefzil Active Tums Active Levaquin Active Tylenol Active Cats Active Contrast Dye Active Drums Active Horses Active Mold Active Nuts Active Pork Active Soy Products Active fentaNYL Active Latex rash Active Bactrim Active Biaxin XL Active Adhesive Bandage rash Active Dogs Active Dust Active 1Rash 2rash 3Pt States she tolerates Benadryl by mouth fine 11/06/20 Immunizations Given and Recorded Vaccine Date Status Refusal Reason SARS-CoV-2 (COVID-19) mRNA BNT-162b2 vac 08/29/20 Recorded tetanus-diphtheria toxoids (Td) 1 07/06/19 Given tetanus/diphtheria/pertussis, acel(Tdap) 2 01/25/10 Given 1Result Comment: wrong chart 2Admin Note: vis given 03-21-2008 Problem List Condition Effective Dates Status Health [...]
--- OUTSIDE RECORDS SUMMARY | 2023-05-02 12:09 | XMS_ITS | Continuity of Care Document ---
Author Name Unknown Organization [facility] Address [address] [place] [address]- Care Team Providers Care Mash Tub Cooker Name Role Phone Yolanda Fischer MD Primary Care Physician Encounter [facility] ACCT R [id number] Date(s): 01/19/20 - 01/31/[address] [address]- Attending Physician: Krysta GERBER, Jessica Admitting Physician: Jessica Chaparro MD Allergies, Adverse Reactions, Alerts Substance Reaction [...] rash Active Cats Active Contrast Dye Active [place] Active Dogs Active Dust Active Horses Active [...] chart 2Admin Note: vis given 03-21-2008 Medications ibandronate 150 mg oral tablet 1 tablet = 150 mg, By Mouth, Every 28 days, # 3 each, 2 Refills, Maintenance, 12/25/20 10:09:00 [facility] #[id number], Partial fill upon patient request if the prescription is for a schedule II opioid drug., 150, cm, 12/25/20 9:32:00 EDT, H... Start Date: 12/25/20 Status: Ordered PredniSONE By Mouth, 0 Refills, Maintenance, 12/25/20 9:34:00 EDT, Partial fill upon patient request if the prescription is for a schedule II opioid drug. Start Date: 12/25/20 Status: Ordered Suprep Bowel Prep Kit oral liquid See Instructions, 176ml x 2 as directed before colonoscopy, # 1 kit, 0 Refills, Maintenance, 01/14/21 12:14:00 EDT, [facility] #[id number], Partial fill upon patient request if the prescription is for a schedule II opioid drug., 176ml x 2 as dire... Start Date: 01/14/21 Status: Ordered Problem List Condition Effective Dates Status Health Status Inform ant Abdominal pain, generalized(Confirmed) Active Acid reflux(Confirmed) Active Anxiety(Confirmed) Active Arthritis(Confirmed) Active Arthritis of carpometacarpal (CMC) joint of left thumb(Confirmed) Active Cellulitis of finger, left(Confirmed) Active Change in bowel habits(Confirmed) Active Fibromyalgia(Confirmed) 1 Active H/O: drug allergy(Confirmed) 2 Active Hypothyroid(Confirmed) Active LBBB - Left bundle branch block(Confirmed) 3 Active Low back pain radiating down leg(Confirmed) Active Osteoporosis(Confirmed) Active Health maintenance examination(Confirmed) Active Medicare annual wellness vis it, subsequent(Confirmed) Active Colonic polyp(Confirmed) 4 Active Rectal bleeding(Confirmed) Active Venous stasis(Confirmed) Active 1Dr Melo rheum 2Dr Soco development mgr multiple food and drug allergies 3[facility] 4colonoscopy 06/21/2019 removed 4 polyps. if positive for ca will need colon resection Social History Social History Type Response Smoking Status Never (less than 100 in lifetime) entered on: 05/30/19 Sex
--- OUTSIDE RECORDS SUMMARY | 2023-05-02 12:09 | XMS_ITS | Continuity of Care Document ---
Author Name Unknown Organization [facility] Address [address] [place] [address]- Care Team Providers Care Communication Assistant Name Role Phone Yolanda Fischer MD Primary Care Physician Encounter [facility] Date(s): 11/26/20 - 12/26/20 [facility] [address] [place] [address]- Allergies, Adverse Reactions, Alerts Substance Reaction Severity [...] rash Active Cats Active Contrast Dye Active [place] Active Dogs Active Dust Active Horses Active [...] 3 each, 2 Refills, Maintenance, 12/25/20 10:09:00 EDT, [facility] #[id number], Partial fill upon patient request if the prescription is for a schedule II opioid drug., 150, cm, 12/25/20 9:32:00 EDT, H... Start Date: 12/25/20 Status: Ordered NuLYTELY with Flavor Packs oral powder for reconstitution 240 mL, By Mouth, Every 10 minutes, # 4,000 mL, 0 Refills, Maintenance, 12/25/20 10:32:00 EDT, REC Powder, [facility] #[id number], Partial fill upon patient request if the prescription is for a schedule II opioid drug., 240 mL By Mouth Every 10 m... Start Date: 12/25/20 Status: Ordered PredniSONE By Mouth, 0 Refills, Maintenance, 12/25/20 9:34:00 EDT, Partial fill upon patient request if the prescription is for a schedule II opioid drug. Start Date: 12/25/20 Status: Ordered Problem List Condition Effective Dates [...] stasis(Confirmed) Active 1Dr Melo rheum 2Dr Soc[place] assembler liquid center multiple food and drug allergies 3[facility] 4colonoscopy 06/21/2019 removed 4 polyps. if positive for ca will need colon resection Social History Social History Type Response Smoking Status Never (less than 100 in lifetime) entered on: 05/30/19 Sex
--- OUTSIDE RECORDS SUMMARY | 2023-05-02 12:09 | XMS_ITS | Continuity of Care Document ---
Author Name Unknown Organization [facility] Address [address] [address]- Care Team Providers Care Road Consultant Name Role Phone Yolanda Fischer MD Primary Care Physician Encounter [facility] Date(s): 07/12/20 - 08/11/20 [facility] [address] [address]- [place] Allergies, Adverse Reactions, Alerts Substance Reaction Severity Status atenolol Active codeine Active ibuprofen Active tetracycline Active erythromycin Active penicillin Active sulfADIAZINE All sulfa drugs Active metoprolol Active aspirin Active caffeine Active shellfish Active Benadryl, Topical Active Keflex Active Cleocin T Active Fosamax Active Cefzil Active Tums Active Levaquin Active Tylenol Active Biaxin XL Active Adhesive Bandage rash Active Contrast Dye Active Dogs Active Dust Active Horses Active Latex rash Active Mold Active Nuts Active Pork Active Soy Products Active fentaNYL Active [place] Active Bactrim Active Cats Active Immunizations Given and Recorded Vaccine Date [...] 3 capsule, 1 Refills, Maintenance, 04/17/20 10:01:00 [facility], [facility] #[id number], [place]... 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 if positive for ca will need colon resection Social History Social History Type Response Smoking Status Never (less than 100 in lifetime) entered on: 05/30/19 Sex Female
--- OUTSIDE RECORDS SUMMARY | 2023-05-02 12:09 | XMS_ITS | Continuity of Care Document ---
Author Name Unknown Organization [facility] Address [address] [address]- Care Team Providers Care Sampler Pickup Name Role Phone Amado GERBER, Yolanda Lance Primary Care Physician [place] [facility] [id number] Date(s): 08/07/20 - 09/20/20 [facility] [address] [address]- Attending Physician: Harmony GERBER, Merced Denny Admitting Physician: Harmony GERBER, Merced Denny Referring Physician: Hramony GERBER, Merced Denny Allergies, Adverse Reactions, Alerts Substance Reaction Severity [...] rash Active Cats Active Contrast Dye Active [place] Active Dogs Active Dust Active Horses Active [...] 3 capsule, 1 Refills, Maintenance, 04/17/20 10:01:00 [id number], [place]... Start Date: 04/17/20 Status: Ordered Multivitamins Multivitamins, Refills 0, Maintenance, 11/01/19 10:09:00 EDT, Supply Start Date: 11/01/19 Status: Ordered Problem List Condition Effective Dates Status Health Status Inform ant Abdominal pain, generalized(Confirmed) Active Acid reflux(Confirmed) Active Anxiety(Confirmed) Active Arthritis(Confirmed) Active Arthritis of carpometacarpal (CMC) joint of left thumb(Confirmed) Active Change in bowel habits(Confirmed) Active Fibromyalgia(Confirmed) 1 Active H/O: drug allergy(Confirmed) 2 Active Hypothyroid(Confirmed) Active LBBB - Left bundle branch block(Confirmed) 3 Active Low back pain radiating down leg(Confirmed) Active Osteoporosis(Confirmed) Active Health maintenance examination(Confirmed) Active Medicare annual wellness vis it, subsequent(Confirmed) Active Colonic polyp(Confirmed) 4 Active Rectal bleeding(Confirmed) Active Venous stasis(Confirmed) Active 1Dr Melo rheum 2Dr 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 if positive for ca will need colon resection Social History Social History Type Response Smoking Status Never (less than 100 in lifetime) entered on: 05/30/19 Sex Female
--- OUTSIDE RECORDS SUMMARY | 2023-05-02 12:09 | XMS_ITS | Continuity of Care Document ---
Author Name Unknown Organization [facility] Address [address] [address]- Care Team Providers Care Cinder Pitman Name Role Phone Yolanda Fischer MD Primary Care Physician [place] [facility] [place] Date(s[place] 07/17/20 - 08/24/20 [facility] [address] [address]- Attending Physician: Savanah Charlton Admitting Physician: Savanah Charlton Referring Physician: Savanah Charlton Allergies, Adverse Reactions, Alerts Substance Reaction Severity Status atenolol Active codeine Active erythromycin Active penicillin Active Keflex Active Cefzil Active Tums Active ibuprofen Active aspirin Active Benadryl, Topical Active tetracycline Active shellfish Active sulfADIAZINE All sulfa drugs Active metoprolol Active caffeine Active Cleocin T Active Fosamax Active Levaquin Active Tylenol Active Adhesive Bandage rash Active Horses Active Mold Active Nuts Active Pork Active Soy Products Active fentaNYL Active Latex rash Active Bactrim Active Biaxin XL Active Cats Active [place] Active Contrast Dye Active Dogs Active Dust Active Immunizations Given and Recorded Vaccine Date [...] 3 capsule, 1 Refills, Maintenance, 04/17/20 10:01:00 [id number], [place]... Start Date: 04/17/20 Status: Ordered Multivitamins [...] stasis(Confirmed) Active 1Dr Melo rheum 2Dr Soco principal database developer multiple food and drug allergies 3[facility] 4colonoscopy 06/21/2019 removed 4 polyps. if positive for ca will need colon resection Social History Social History Type Response Smoking Status Never (less than 100 in lifetime) entered on: 05/30/19 Sex Female
--- OUTSIDE RECORDS SUMMARY | 2023-05-02 12:10 | XMS_ITS | Continuity of Care Document ---
Author Name Unknown Organization [facility] Address [address] [place] [address]- Care Team Providers Care Medical Delivery Driver Name Role Phone Yolanda Fischer MD Primary Care Physician [place] [facility] [place] 11/12/20 - 12/12/20 [facility] [address] [place] [id number] Allergies, Adverse Reactions, Alerts Substance Reaction Severity [...] rash Active Cats Active Contrast Dye Active [place] Active Dogs Active Dust Active Horses Active [...] stasis(Confirmed) Active 1Dr Melo rheum 2Dr Soco skin pass operator multiple food and drug allergies 3[facility] 4colonoscopy 06/21/2019 removed 4 polyps. if positive for ca will need colon resection Social History Social History Type Response Smoking Status Never (less than 100 in lifetime) entered on: 05/30/19 Sex
--- OUTSIDE RECORDS SUMMARY | 2023-05-02 12:10 | XMS_ITS | Continuity of Care Document ---
Author Name Unknown Organization [facility] Address [address] [address]- Care Team Providers Care Fancy Wire Drawer Name Role Phone Ruma Bravo MD Primary Care Physician En[facility] [place] Date(s): 12/29/22 - 01/28/23 [facility] [address] [address] [place] Allergies, Adverse Reactions, Alerts Substance Reaction [...] rash Active Cats Active Contrast Dye Active [place] Active Dogs Active Dust Active Horses Active [...] 1 Refills, Maintenance, 01/19/23 10:23:00 EDT, Tablet, [facility][id number], Partial fill upon patient request if the [...] Gm, 0 Refills, Maintenance, 12/17/22 11:48:00 EDT, [facility][id number], Partial fill upon patient request if the prescription is for a schedule II opioid drug., 152, cm,... Start Date: 12/17/22 Status: Ordered diclofenac 1% topical gel 1 application, Topically, 4 times a day, # 100 Gm, 0 Refills, Maintenance, 12/25/22 11:12:00 EDT, [facility] #[id number], Partial fill upon patient request if the prescription is for a schedule II opioid drug., 152, cm, 12/25/22 10:26:00 EDT... Start Date: 12/25/22 Status: Ordered diphenhydrAMINE 50 mg oral tablet 1 tablet = 50 mg, By Mouth, Once, [address] scan, # 1 tablet, 2 Refills, Soft Stop, 10/15/22 14:04:00 EDT, [facility] #[id number], Partial fill upon patient request if the [...] 11/03/22 16:12:00 EDT, Route to Pharmacy Electronically, [facility][id number], Partial fill upon patient request if the [...] 2 Refills, Maintenance, 09/08/22 10:06:00 EDT, Tablet, [facility] #[id number],... Start Date: 09/08/22 Status: Ordered lisinopril 5 mg oral tablet 5 mg, 1, tablet, By Mouth, Daily, # 90 tablet, Refills 1, Tot. Refills 1, Maintenance, 09/02/22 9:47:00 EDT, Route to Pharmacy Electronically, [facility] #[id number], 150, cm, 08/27/22 14:11:00 EDT, Height, 45.9, [...] Care Member Role: PCP Address: Address: [address] [place] [address] - [place] [address]- Name: Shikha Rivera RN Position: [facility] RN Member Role: Primary Care Nurse Name: Cherry Olsen MD Position: [facility] BRAIDER OPERATOR MD Member Role: Lifetime BRAIDER OPERATOR Physician Address: Address: [address] [place] [address] [facility] Licensed Embalmer [place] [address]- Name: Maeve Jones RN Position: [facility] RN Member Role: Primary Care Nurse Care Team Related Persons Name: MEG MARTIN Address: home [address] [place] [id number] Name: JAKE RODRIGUES Address: [place] [address]
--- OUTSIDE RECORDS SUMMARY | 2023-05-02 12:10 | XMS_ITS | Continuity of Care Document ---
Author Name Unknown Organization [facility] Address [address] [place] [address]- Care Team Providers Care Appraiser Irrigation Tax Name Role Phone Yolanda Fischer MD Primary Care Physician [place] [facility] [place] - 06/06/19 [facility] [address] [place] [address]- [place] Encounter Diagnosis Health maintenance examination(Discharge Diagnosis) - 05/30/19 LBBB - Left bundle branch block(Discharge Diagnosis) - 05/30/19 Fibromyalgia(Discharge Diagnosis) - 05/30/19 Arthritis(Discharge Diagnosis) - 05/30/19 Acid reflux(Discharge Diagnosis) - 05/30/19 Rectal bleeding(Discharge Diagnosis) - 05/30/19 Attending Physician: Yolanda Fischer MD Allergies, Adverse Reactions, [...] Active Adhesive Bandage rash Active Cats Active [place] Active Dogs Active Dust Active Horses Active [...] Refills, Maintenance, 06/03/19 10:30:00 EST, REC Powder, [facility] #[id number], 240 mL By Mouth Every 15 minutes, [...] bleeding(Confirmed) Active 1Dr Melo rheum 2Dr Soco inside sales assistant multiple food and drug allergies 3[facility] Diagnosis Diagnosis Type Effective Dates Health Status Clinical Service Informant Health maintenance examination Discharge Diagnosis 05/30/19 LBBB - Left bundle branch block Discharge Diagnosis 05/30/19 Fibromyalgia Discharge Diagnosis 05/30/19 Arthritis Discharge Diagnosis 05/30/19 Acid reflux Discharge Diagnosis 05/30/19 Rectal bleeding Discharge Diagnosis 05/30/19 Vital Signs Most recent to oldest [Reference Range]: 1 Height 151.00 cm (05/30/19 10:41 AM) Weight 49.54 kg (05/30/19 10:41 AM) Oxygen Saturation [94-100 %] 96 % (05/30/19 10:41 AM) Pulse Rate [55-90 bpm] 76 bpm (05/30/19 10:41 AM) Body Mass Index [18.5-24.99] 21.73 (05/30/19 10:41 AM) Blood Pressure [90-138/55-84 mm Hg] 110/ 60mm Hg (05/30/19 10:41 AM) Respiratory Rate [16-30 br/min] 20 br/mi n (05/30/19 10:41 AM) Blood pressure sites Arm, left (1/27/20 10:41 AM) Weight Obtained Via Patient/family state d (05/30/19 10:41 AM) Social History Social History Type Response Smoking Status Never (less than 100 in lifetime) entered on: 05/30/19 Sex
--- OUTSIDE RECORDS SUMMARY | 2023-05-02 12:10 | XMS_ITS | Continuity of Care Document ---
Author Name Unknown Organization [facility] Address [address] [place] [address]- Care Team Providers Care Continuing Education Instructor Name Role Phone Patti HARDEN, Shandra Lance Primary Care Physician [place] [facility] [place] 04/11/21 - 05/11/21 [facility] [address] [place] [address]- Encounter Diagnosis Reactive arthritis(Discharge Diagnosis) - 03/20/21 Attending Physician: Will Wilson Admitting Physician: Will Wilson Referring Physician: Will Wilson Allergies, Adverse Reactions, Alerts Substance Reaction Severity [...] rash Active Cats Active Contrast Dye Active [place] Active Dogs Active Dust Active Horses Active [...] each, 2 Refills, Maintenance, 12/25/20 10:09:00 EDT, [id number], Partial fill upon patient request if the prescription is for a schedule II opioid drug., 150, cm, 12/25/20 9:32:00 EDT, H... Start Date: 12/25/20 Status: Ordered Problem List Condition Effective Dates Status Health Status Inform ant Abdominal pain, generalized(Confirmed) Active Acid reflux(Confirmed) Active Anxiety(Confirmed) Active Arthritis(Confirmed) Active Arthritis of carpometacarpal (CMC) joint of left thumb(Confirmed) Active CMC arthritis(Confirmed) Active Change in bowel habits(Confirmed) Active Fibromyalgia(Confirmed) 1 Active H/O: drug allergy(Confirmed) 2 Active Hypothyroid(Confirmed) Active LBBB - Left bundle branch block(Confirmed) 3 Active Low back pain radiating down leg(Confirmed) Active Osteoporosis(Confirmed) Active Medicare annual wellness vis it, subsequent(Confirmed) Active Colonic polyp(Confirmed) 4 Active Rectal bleeding(Confirmed) Active Lab test positive for detect ion of COVID-19 virus(Confirmed) 5 Active Vaccine reaction(Confirmed) 6 Active Venous stasis(Confirmed) Active 1Dr Melo rheum 2Dr Soco representative government relations multiple food and drug allergies 3[facility] 4colonoscopy 06/21/2019 removed 4 polyps. if positive for ca will need colon resection 5Late April 2020 6Pt. had 2nd Pfizer vaccine on 09/19 and pain in her L hand on 10/07. Diagnosis Diagnosis Type Effective Dates Health Status Cl inical Service Informant Reactive arthritis Discharge Diagnosis 03/20/21 Social History Social History Type Response Smoking Status Never (less than 100 in lifetime) entered on: 05/30/19 Sex
--- OUTSIDE RECORDS SUMMARY | 2023-05-02 12:10 | XMS_ITS | Continuity of Care Document ---
Author Name Unknown Organization [facility] Address [address] [place] [address]- Care Team Providers Care Diversity Manager Name Role Phone Yolanda Fischer MD Primary Care Physician [place] [facility] [place] 09/06/20 - 10/18/[address] [address] Attending Physician: Rachell Crandall MD Allergies, Adverse Reactions, Alerts Substance Reaction Severity Status atenolol Active codeine Active doxycycline 1 Moderate Active clindamycin Active penicillin Active sulfADIAZINE All sulfa drugs Active Keflex Active Cleocin T Active ibuprofen Active aspirin Active Benadryl, Topical Active tetracycline Active erythromycin Active shellfish Active metoprolol Active caffeine Active Cefzil Active Tums Active Levaquin Active Tylenol Active Adhesive Bandage rash Active Horses Active Latex rash Active Mold Active Nuts Active Pork Active Soy Products Active fentaNYL Active Dust Active Fosamax Active Bactrim Active Biaxin XL Active Cats Active [place] Active Contrast Dye Active Dogs Active 1Rash Immunizations Given and Recorded Vaccine Date Status [...] 3 capsule, 1 Refills, Maintenance, 04/17/20 10:01:00 [id number], [place]... Start Date: 04/17/20 Status: Ordered Multivitamins [...] stasis(Confirmed) Active 1Dr Melo rheum 2Dr Soco crepe maker multiple food and drug allergies 3[facility] 4colonoscopy 06/21/2019 removed 4 polyps. if positive for ca will need colon resection Social History Social History Type Response Smoking Status Never (less than 100 in lifetime) entered on: 05/30/19 Sex Female
--- OUTSIDE RECORDS SUMMARY | 2023-05-02 12:10 | XMS_ITS | Continuity of Care Document ---
Author Name Unknown Organization [facility] Address [address] [place] [address]- Care Team Providers Care Manager Of Purchasing Name Role Phone Yolanda Fischer MD Primary Care Physician [place] [facility] [place] 10/17/20 - 11/16/20 [facility] [address] [place] [address]- Allergies, Adverse Reactions, Alerts Substance Reaction Severity [...] rash Active Cats Active Contrast Dye Active [place] Active Dogs Active Dust Active Horses Active [...] stasis(Confirmed) Active 1Dr Melo rheum 2Dr Soco ed teacher multiple food and drug allergies 3[facility] 4colonoscopy 06/21/2019 removed 4 polyps. if positive for ca will need colon resection Social History Social History Type Response Smoking Status Never (less than 100 in lifetime) entered on: 05/30/19 Sex
--- OUTSIDE RECORDS SUMMARY | 2023-05-02 12:10 | XMS_ITS | Continuity of Care Document ---
Author Name Unknown Organization [facility] Address [address] [place] [address]- Care Team Providers Care Barn Hand Name Role Phone Lawrence GERBER, Ruma Bauer Primary Care Physician [place] [facility] [place] 11/[place]/22 [facility] [address] [place] [address]- Allergies, Adverse Reactions, Alerts Substance Reaction Severity [...] rash Active Cats Active Contrast Dye Active [place] Active Dogs Active Dust Active Horses Active [...] 2 Refills, Soft Stop, 10/15/22 14:04:00 EDT, [email or web address] #[id number], Partial fill upon patient request if the [...] 11/03/22 16:12:00 EDT, Route to Pharmacy Electronically, [email or web address] #[id number], Partial fill upon patient request if the [...] 2 Refills, Maintenance, 09/08/22 10:06:00 EDT, Tablet, [email or web address] #[id number],... Start Date: 09/08/22 Status: Ordered lisinopril 5 mg oral tablet 5 mg, 1, tablet, By Mouth, Daily, # 90 tablet, Refills 1, Tot. Refills 1, Maintenance, 09/02/22 9:47:00 EDT, Route to Pharmacy Electronically, [email or web address] #[id number], 150, cm, 08/27/22 14:11:00 EDT, Height, 45.9, [...] Refills, Soft Stop, 11/03/22 16:11:00 EDT, Tablet, [facility] #45505, Partial fill upon patient request if the [...] Team Personnel Name: Shadi , Yin Position: [facility] Onco RN Member Role: Primary Care Nurse Name: Ruma Bravo MD Position: [facility] Physician - Primary Care Member Role: PCP Address: Address: [address] [place] [address] Family Medicine [address] Name: Pretty GREBER, Cherry Gaines Position: [facility] LINUX UNIX ENGINEER MD Member Role: Lifetime LINUX UNIX ENGINEER Physician Address: Address: [address] [place] [address] Women's Health Color Finisher [address] Name: Maeve Jones RN Position: [facility] RN Member Role: Primary Care Nurse Care Team Related Persons Name: MEG MARTIN Address: home [address] [place] [id number] Name: JAKE RODRIGUES Address: [place] [address]
--- OUTSIDE RECORDS SUMMARY | 2023-05-02 12:10 | XMS_ITS | Continuity of Care Document ---
Author Name Unknown Organization [facility] Address [address] [place] [address]- Care Team Providers Care Plaster Caster Name Role Phone Lawrence GERBER, Ruma Bauer Primary Care Physician Encounter [facility] Date(s): 03/23/23 - 04/22/23 [facility] [address] [place] [address]- Allergies, Adverse Reactions, Alerts Substance Reaction Severity Status atenolol Active codeine Active clindamycin Active penicillin Active caffeine Active sulfa drugs Active ibuprofen Active aspirin Active doxycycline 1 Moderate Active tetracycline Active erythromycin Active amoxicillin Active sulfADIAZINE All sulfa drugs Active metoprolol Active predniSONE Allergy to sulfa drugs Activ e shellfish Active Benadryl, Topical 2 Active Keflex Active Cefzil Active Tums Active Levaquin Active Tylenol Active Contrast Dye Active Horses Active Mold Active Nuts Active Cleocin T Active Fosamax Active Augmentin Active Bactrim Active Biaxin XL Active Adhesive Bandage rash Active Cats Active [place] Active Dogs Active Dust Active Latex rash Active Other Food Allergy chicken broccoli other [...] 1 Refills, Maintenance, 01/19/23 10:23:00 EDT, Tablet, [facility] #[id number], Partial fill upon patient request if the [...] Gm, 0 Refills, Maintenance, 12/17/22 11:48:00 EDT, [facility] #[id number], Partial fill upon patient request if the prescription is for a schedule II opioid drug., 152, cm,... Start Date: 12/17/22 Status: Ordered diclofenac 1% topical gel 1 application, Topically, 4 times a day, # 100 Gm, 0 Refills, Maintenance, 12/25/22 11:12:00 EDT, [facility] #15513, Partial fill upon patient request if the prescription is for a schedule II opioid drug., 152, cm, 12/25/22 10:26:00 EDT... Start Date: 12/25/22 Status: Ordered diphenhydrAMINE 50 mg oral tablet 1 tablet = 50 mg, By Mouth, Once, [address] scan, # 1 tablet, 2 Refills, Soft Stop, 10/15/22 14:04:00 EDT, [facility] #[id number], Partial fill upon patient request if the [...] 11/03/22 16:12:00 EDT, Route to Pharmacy Electronically, [facility] #[id number], Partial fill upon patient request if the prescription is for a schedule II opi... Start Date: 11/03/22 Stop Date: 11/08/22 Status: Ordered ibandronate 150 mg oral tablet 1 tablet = 150 mg, By Mouth, Every 30 days, Swallow whole w/6-8oz water 1HR before first food, drink, med-Do not lie down for 1HR & until after first food, # 3 tablet, 3 Refills, Maintenance, 03/24/23 9:43:00 EST, Tablet, [facility] #[id number],... Start Date: 03/24/23 Status: Ordered lisinopril 5 mg oral tablet 5 mg, 1, tablet, By Mouth, Daily, # 90 tablet, Refills 1, Tot. Refills 1, Maintenance, 09/02/22 9:47:00 EDT, Route to Pharmacy Electronically, [facility] #[id number], 150, cm, 08/27/22 14:11:00 EDT, Height, 45.9, [...] Care Nurse Name: Ruma Bravo MD Position: [facility] Physician - Primary Care Member Role: PCP Address: Address: [address] [facility] [place], [place] [address] Name: Shikha Rivera RN Position: [facility] RN Member Role: Primary Care Nurse Name: Consuelo Louis RN Position: [facility] RN Member Role: Primary Care Nurse Name: Cherry Olsen MD Position: [facility] TEACHER VISUALLY IMPAIRED MD Member Role: Lifetime TEACHER VISUALLY IMPAIRED Physician Address: Address: [address] [facility] [place] [address]- Name: Robert GALLAGHER, Maeve Bauer Position: [facility] RN Member Role: Primary Care Nurse Care Team Related Persons Name: MEG MARTIN Address: home [address] [place] [id number] Name: JAKE RODRIGUES Address: [place] [address]
--- OUTSIDE RECORDS SUMMARY | 2023-05-02 12:10 | XMS_ITS | Continuity of Care Document ---
Author Name Unknown Organization [facility] Address [address] [place] [address]- Care Team Providers Care Irrigation Equipment Installer Name Role Phone Yolanda Fischer MD Primary Care Physician En[place] [facility] [place] Date(s): 05/22/20 - 06/21/20 [facility] [address] [place] [address]- Allergies, Adverse Reactions, Alerts Substance Reaction Severity [...] rash Active Cats Active Contrast Dye Active [place] Active Dogs Active Dust Active Horses Active [...] capsule, 1 Refills, Maintenance, 04/17/20 10:01:00 EST, [facility] #[id number], [place]... Start Date: 04/17/20 Status: Ordered Multivitamins [...] stasis(Confirmed) Active 1Dr Melo rheum 2Dr Soco food preparation kitchen aide multiple food and drug allergies [facility] 4colonoscopy 06/21/2019 removed 4 polyps. if positive for ca will need colon resection Social History Social History Type Response Smoking Status Never (less than 100 in lifetime) entered on: 05/30/19 Sex Female
--- OUTSIDE RECORDS SUMMARY | 2023-05-02 12:10 | XMS_ITS | Continuity of Care Document ---
Author Name Unknown Organization [facility] Address [address] [place] [address]- Care Team Providers Care Rental Car Ferry Driver Name Role Phone Ruma Bravo MD Primary Care Physician [place] [facility] [place] 02/27/23 - 03/29/23 [facility] [address] [place] [address]- Encounter Diagnosis Reactive arthritis(Discharge Diagnosis) - 03/20/21 [...] rash Active Cats Active Contrast Dye Active [place] Active Dogs Active Dust Active Horses Active [...] tablet, 1 Refills, Maintenance, 01/19/23 10:23:00 EDT, [facility] #[id number], Partial fill upon patient request if the [...] Gm, 0 Refills, Maintenance, 12/17/22 11:48:00 EDT, [facility] #[id number], Partial fill upon patient request if the prescription is for a schedule II opioid drug., 152, cm,... Start Date: 12/17/22 Status: Ordered diclofenac 1% topical gel 1 application, Topically, 4 times a day, # 100 Gm, 0 Refills, Maintenance, 12/25/22 11:12:00 EDT, [facility] #[id number], Partial fill upon patient request if the prescription is for a schedule II opioid drug., 152, cm, 12/25/22 10:26:00 EDT... Start Date: 12/25/22 Status: Ordered diphenhydrAMINE 50 mg oral tablet 1 tablet = 50 mg, By Mouth, Once, [address] scan, # 1 tablet, 2 Refills, Soft Stop, 10/15/22 14:04:00 EDT, [facility] #[id number], Partial fill upon patient request if the [...] 11/03/22 16:12:00 EDT, Route to Pharmacy Electronically, [facility] #[id number], Partial fill upon patient request if the [...] 3 Refills, Maintenance, 03/24/23 9:43:00 EST, Tablet, [facility] #[id number],... Start Date: 03/24/23 Status: Ordered lisinopril 5 mg oral tablet 5 mg, 1, tablet, By Mouth, Daily, # 90 tablet, Refills 1, Tot. Refills 1, Maintenance, 09/02/22 9:47:00 EDT, Route to Pharmacy Electronically, [facility] #[id number], 150, cm, 08/27/22 14:11:00 EDT, Height, 45.9, [...] Diagnosis Type Effective Dates [facility] In[facility]ant Reactive arthritis Discharge Diagnosis 03/20/21 Social History Social History Type Response Smoking Status Never (less than 100 in lifetime) entered on: 05/30/19 Sex Cardiology * Event Display: EKG Non BH Authored Date: EKG study * Event Display: EKG Authored Date: * Event Display: EKG Authored Date: Laboratory * Event Display: Non BH Lab Results Authored Date: * Event Display: Non BH Lab Results Authored Date: * Event Display: Non BH Lab Results Authored Date: Cardiology Outpatient Note * Marjorie Adorno: PERFORM Event Display: Cardiology Note Office Authored Date: * Monet Rodriguez: PERFORM Event Display: Cardiology Note Office Authored Date: * Marjorie Adorno: PERFORM Event Display: Cardiology Note Office Authored Date: Radiology * Event Display: MRI Spine, Non- BH Authored Date: * Event Display: MRI Spine, Non- BH Authored Date: * Event Display: MRI Abdomen, Non- BH Authored Date: * Event Display: Ultrasound Lower Extremity, Non-BH Authored Date: * Event Display: X-Ray Knee, Non- BH Authored Date: * Event Display: MRI Head, Non- BH Authored Date: * Event Display: MRI Spine, Non- BH Authored Date: * Morteza GERBER , Chelsea Horner: REVIEW Event Display: Radiology Result Scanned Authored Date: * Event Display: Radiology Result Scanned Authored Date: * Event Display: Radiology Result Scanned Authored Date: CT Abdomen * Event Display: CT Scan Abdomen Authored Date: MR Abdomen * Event Display: MRI Abdomen Authored Date: * Event Display: MRI Abdomen Authored Date: Patient Care team information Care Team Personnel Name: Yin Hsu Position: [facility] Onco RN Member Role: Primary Care Nurse Name: Ruma Bravo MD Position: [facility] Physician - Primary Care Member Role: PCP Address: Address: [address] [place] [address]- Name: Shikha Rivera RN Position: [facility] RN Member Role: Primary Care Nurse Name: Consuelo Louis RN Position: [facility] RN Member Role: Primary Care Nurse Name: Pretty GERBER, Cherry Gaines Position: [facility] GREY PERCHER MD Member Role: Lifetime GREY PERCHER Physician Address: Address: [address] [place] [address] [facility] [place] [address]- Name: Maeve Jones RN Position: [facility] RN Member Role: Primary Care Nurse Care Team Related Persons Name: MEG MARTIN Address: home [address] [place] [id number] Name: JAKE RODRIGUES Address: [place] [address]
--- OUTSIDE RECORDS SUMMARY | 2023-05-02 12:10 | XMS_ITS | Continuity of Care Document ---
Author Name Unknown Organization [facility] Address [address] [place] [address]- Care Team Providers Care Pipe Threader Name Role Phone Yolanda Fischer MD Primary Care Physician En[place] [facility] [place] Date(s): 01/11/20 - 02/10/20 [facility] [address] [place] [address]- [facility] Attending Physician: AdmLogan [email or web address] Admitting Physician: Admtr, Ar8 Referring Physician: Admtr, Ar8 Allergies, Adverse Reactions, Alerts Substance Reaction Severity Status atenolol Active codeine Active penicillin Active Keflex Active Cefzil Active ibuprofen Active aspirin Active Benadryl, Topical Active tetracycline Active erythromycin Active shellfish Active sulfADIAZINE All sulfa drugs Active metoprolol Active caffeine Active Cleocin T Active Fosamax Active Tums Active Levaquin Active Tylenol Active Bactrim Active Biaxin XL Active Horses Active Mold Active Nuts Active Soy Products Active fentaNYL Active Latex rash Active Adhesive Bandage rash Active Cats Active [place] Active Contrast Dye Active Dogs Active Dust Active Pork Active Immunizations Given and Recorded Vaccine Date Status Refusal Reason tetanus-diphtheria toxoids (Td) 1 07/06/19 Given tetanus/diphtheria/pertussis, acel(Tdap) 2 01/25/10 Given 1Result Comment: wrong chart 2Admin Note: vis given 03-21-2008 Medications Cane See Instructions, # 1 each, Maintenance, use quad cane as needed, 08/24/19 15:23:00 EDT, Compound, 149.9, cm, 08/24/19 14:55:00 EDT, Height Start Date: 08/24/19 Status: Ordered Compression Stockings See Instructions, # 2 pair, Refills 2, Tot. Refills 2, Maintenance, surgical, calf length 20-30 mm Hg Dx: venous insufficiency, 10/19/15 16:10:32, Compound Start Date: 10/19/15 Status: Ordered EpiPen 2-Jerman = 0.3 mg, Intramuscular, Once, 0 Refills, Maintenance Start Date: 11/10/12 Status: Ordered Multivitamins Multivitamins, Refills 0, Maintenance, [...] stasis(Confirmed) Active 1Dr Melo rheum 2Dr Soco public records researcher multiple food and drug allergies 3[facility] 4colonoscopy 06/21/2019 removed 4 polyps. if positive for ca will need colon resection Social History Social History Type Response Smoking Status Never (less than 100 in lifetime) entered on: 05/30/19 Sex Female
--- OUTSIDE RECORDS SUMMARY | 2023-05-02 12:10 | XMS_ITS | Continuity of Care Document ---
Author Name Unknown Organization [facility] Address [address] [place] [address]- Care Team Providers Care Chief Engineering Division Name Role Phone Yolanda Fischer MD Primary Care Physician [place] [facility] [place](s[place] 09/21/19 - 09/28/19 [facility] [address] [place] [address]- [place] Encounter Diagnosis Venous stasis(Discharge Diagnosis) - 09/21/19 Fibromyalgia(Discharge Diagnosis) - 09/21/19 Attending Physician: Yolanda Fischer MD Allergies, Adverse [...] Active Adhesive Bandage rash Active Cats Active [place] Active Dogs Active Dust Active Horses Active [...] Refills, Maintenance Start Date: 11/10/12 Status: Ordered Problem List Condition Effective Dates [...] stasis(Confirmed) Active 1Dr Melo rheum 2Dr [place] tool filer hand multiple food and drug allergies 3[facility] 4colonoscopy 06/21/2019 removed 4 polyps. if positive for ca will need colon resection Diagnosis Diagnosis Type Effective Dates Health Status Cl inical Service Informant Venous stasis Discharge Diagnosis 09/21/19 Fibromyalgia Discharge Diagnosis 09/21/19 Vital Signs Most recent to oldest [Reference Range]: 1 Height 152 cm (09/21/19 3:49 PM) Social History Social History Type Response Smoking Status Never (less than 100 in lifetime) entered on: 05/30/19 Sex Female
--- OUTSIDE RECORDS SUMMARY | 2023-05-02 12:10 | XMS_ITS | Continuity of Care Document ---
Author Name Unknown Organization [facility] Address [address] [place] [address]- Care Team Providers Care Commercial Title Examiner Name Role Phone Zandra Juan MD Primary Care Physician Encounter 10/26/19 - 11/02/19 [facility] [address], [address] [place] [address]- [phone] Attending Physician: Zandra Juan MD Admitting Physician: Zandra Juan MD Referring Physician: Zandra Juan MD Allergies, Adverse Reactions, Alerts Substance Reaction [...] rash Active Cats Active Contrast Dye Active [place] Active Dogs Active Dust Active Horses Active [...] stasis(Confirmed) Active 1Dr Melo rheum 2Dr Soco satellite dish repairer multiple food and drug allergies 3[facility] 4colonoscopy 06/21/2019 removed 4 polyps. if positive for ca will need colon resection Results Radiology Reports * Exam Date Time Procedure Performing Provider Status 10/26/19 9:17 AM Dexa Bone Density (Axial) Mayco Sepulveda (Verified) Notes: (Dexa Bone Density (Axial)) Reason For Exam: Osteoporosis RESULT: DEXA BONE DENSITY (AXIAL) Bone Density Report Name: NAUN MARTIN Age: 74 Sex: Female Ethnicity: White Date of : 1945 Indication: POSTMENOPAUSAL. Referring Provider: ZANDRA JUAN Study: Bone densitometry was performed. Exam Date: October 26, 2019 Accession number: [id number] Bone Density: Region BMD T-score Z-score Classification AP Spine (L1-L4) 0.607 -4.0 -1.7 Osteoporosis Femoral Neck (Left) 0.619 -2.1 -0.1 Osteopenia Total Hip (Left) 0.752 -1.6 0.1 Osteopenia World Health Organization criteria for BMD impression classify patients as: Normal (T-score at or above -1.0), Osteopenia (T-score between -1.0 and -2.5), or Osteoporosis (T-score at or below -2.5). 10-year Fracture Risk: FRAX not reported because: Some T-score for Spine Total or Hip Total or Femoral Neck at or below -2.5 Clinical Information Provided by Patient: Has used the following medications: Reclast (i.e. zoledronate), Vitamin D, Calcium Has the following medical conditions: Hysterectomy Patient maximum height was 60 Menopause Age: 34 No regular weight bearing exercise Onset of menses at age 14 Number of children 2 Impression: The patient has osteoporosis as determined by WHO criteria. Based on the results of the patient???s bone density assessment, the risk of future fracture increases approximately two fold for each 1.0 SD decrease in T-score. However, low BMD is not the only risk factor for a future fragility fracture. Other clinical risk factors for osteoporotic fracture should be considered in ascertaining this patient???s future fracture risk including the patient???s age, previous osteoporotic (fragility) fracture, estrogen deficiency/hypogonadism, risk of falling, use of medications implicated in bone loss (glucocorticoids), family history of osteoporotic fracture, diseases and conditions associated with bone loss, low body weight, smoking, high bone turnover, etc. Combining low BMD and other clinical risk factors result in a more precise assessment of future fracture risk. Secondary causes for osteoporosis, such as osteomalacia, other metabolic bone disorders, and diseases and conditions that may contribute to accelerated bone loss may have to be considered depending on the clinical situation. A repeat bone density assessment should be considered in two years. Reported by: Horacio Davila MD on 10/26/2019 11:53:00 AM. Dictated By: Horacio Davila MD Dictated Date/Time: 10/26/19 11:54 a Reviewed By: Horacio Davila MD Signed By: Horacio Davila MD Signed Date/Time: 10/26/19 11:54 am Transcribed By: KELVIN Transcribed Date/Time: 10/26/19 11:54 am Social History Social History Type Response Smoking Status Never (less than 100 in lifetime) entered on: 05/30/19 Sex Female
--- OUTSIDE RECORDS SUMMARY | 2023-05-02 12:10 | XMS_ITS | Continuity of Care Document ---
Author Name Unknown Organization [facility] Address [address] [place] [address]- Care Team Providers Care Typist Name Role Phone Ruma Bravo MD Primary Care Physician Encounter [facility] Date(s): 11/07/22 - 12/07/22 [facility] [address] [place] [address]- Allergies, Adverse Reactions, Alerts Substance Reaction Severity Status atenolol Active codeine Active ibuprofen Active amoxicillin Active penicillin Active metoprolol Active aspirin Active caffeine Active doxycycline 1 Moderate Active tetracycline Active clindamycin Active erythromycin Active sulfADIAZINE All sulfa drugs Active predniSONE Allergy to sulfa drugs Activ e sulfa drugs Active shellfish Active Benadryl, Topical 2 Active Keflex Active Cefzil Active Tums Active Levaquin Active Tylenol Active Horses Active Mold Active Nuts Active Cleocin T Active Fosamax Active Augmentin Active Bactrim Active Biaxin XL Active Adhesive Bandage rash Active Cats Active [place] Active Contrast Dye Active Dogs Active Dust Active Latex rash Active Soy Products Active fentaNYL Active Other Food Allergy chicken broccoli other veggetables tomatoes onions cucumbers lettuce peas carrots wheat rash hives itchy Active 1Rash 2Pt States she tolerates Benadryl [...] 2 Refills, Soft Stop, 10/15/22 14:04:00 EDT, [facility] #[id number], Partial fill upon patient request if the [...] 11/03/22 16:12:00 EDT, Route to Pharmacy Electronically, [facility] #[id number], Partial fill upon patient request if the [...] 2 Refills, Maintenance, 09/08/22 10:06:00 EDT, Tablet, [facility] #[id number],... Start Date: 09/08/22 Status: Ordered lisinopril 5 mg oral tablet 5 mg, 1, tablet, By Mouth, Daily, # 90 tablet, Refills 1, Tot. Refills 1, Maintenance, 09/02/22 9:47:00 EDT, Route to Pharmacy Electronically, [facility] #[id number], 150, cm, 08/27/22 14:11:00 EDT, Height, 45.9, [...] Refills, Soft Stop, 11/03/22 16:11:00 EDT, Tablet, [facility] #[id number], Partial fill upon patient request if the [...] Care team information Care Team Personnel Name: Nadege Hsuricia Position: [facility] Onco RN Member Role: Primary Care Nurse Name: Ruma Bravo MD Position: [facility] Physician - Primary Care Member Role: PCP Address: Address: [address] [place] [address] Family Medicine [address] Name: Pretty GERBER, Cherry Gaines Position: [facility] SYSTEMS TECHNOLOGIST MD Member Role: Lifetime SYSTEMS TECHNOLOGIST Physician Address: Address: [address] [place] [address] Women's Health Meeting/Event Planner [address] Name: Maeve Jones RN Position: [facility] RN Member Role: Primary Care Nurse Care Team Related Persons Name: MEG MARTIN Address: home [address] [place] [address] Name: JAKE RODRIGUES Address: [place] [address]
--- OUTSIDE RECORDS SUMMARY | 2023-05-02 12:10 | XMS_ITS | Continuity of Care Document ---
Author Name Unknown Organization [facility] Address [address] [place] [address]- Care Team Providers Care Special Education Bus Driver Name Role Phone Rahat GERBER, Gaye Macias Primary Care Physician Encounter [facility] [place] Date(s): 10/21/21 - 10/28/21 [facility] [address] [place] [address]- Attending Physician: Harmony GERBER, Merced Denny Admitting Physician: Harmony GERBER, Merced Denny Referring Physician: Gaye Giang MD Allergies, Adverse Reactions, Alerts Substance Reaction Severity Status atenolol Active codeine Active doxycycline 1 Moderate Active clindamycin Active penicillin Active sulfADIAZINE All sulfa drugs Active metoprolol Active ibuprofen Active aspirin Active tetracycline Active erythromycin Active shellfish Active vancomycin 2 rash Persistent Mild Active caffeine Active Benadryl, Topical 3 Active Keflex Active Fosamax Active Cleocin T Active Cefzil Active Tums Active Levaquin Active Tylenol Active Bactrim Active Dogs Active Dust Active Horses Active Mold Active Nuts Active Soy Products Active fentaNYL Active Latex rash Active Biaxin XL Active Adhesive Bandage rash Active Cats Active [place] Active Contrast Dye Active Pork Active 1Rash 2rash 3Pt States she tolerates [...] arthritis(Confirmed) Active Change in bowel habits(Confirmed) Active Elevated [...]
--- OUTSIDE RECORDS SUMMARY | 2023-05-02 12:10 | XMS_ITS | Continuity of Care Document ---
Author Name Unknown Organization [facility] Address [address] [address]- Care Team Providers Care Fire Prevention Chief Name Role Phone Ruma Bravo MD Primary Care Physician Encounter [facility] Date(s): 02/17/23 - 02/24/23 [facility] [address] [address]- [place] Encounter Diagnosis HTN (hypertension)(Discharge Diagnosis) - 02/17/23 LBBB (left bundle branch block)(Discharge Diagnosis) - 02/17/23 Sinus tachycardia(Discharge Diagnosis) - 02/17/23 Attending Physician: Darnell Malik Admitting Physician: Darnell Malik Referring Physician: Ruma Bravo MD Allergies, Adverse Reactions, Alerts Substance Reaction [...] rash Active Cats Active Contrast Dye Active [place] Active Dogs Active Dust Active Horses Active Latex rash Active Mold Active Nuts Active Other Food Allergy chicken broccoli other veggetables tomatoes onions cucumbers lettuce peas carrots wheat rash hives itchy Active Soy Products Active fentaNYL Active 1Rash 2Pt States she tolerates Benadryl by mouth fine 11/06/20 Immunizations Given and Recorded Vaccine Date Status Refusal Reason SARS-CoV-2 (COVID-19) mRNA BNT-162b2 vac 4/28/21 Recorded tetanus/diphtheria/pertussis, acel(Tdap) 1 01/25/10 Given 1Admin Note: vis given 03-21-2008 Medications baclofen 5 mg oral tablet = 0.5 mg, By Mouth, 3 times a day, # 45 tablet, 1 Refills, Maintenance, 01/19/23 10:23:00 EDT, Tablet, [facility] #[id number], Partial fill upon patient request if the [...] Gm, 0 Refills, Maintenance, 12/17/22 11:48:00 EDT, [facility] #[id number], Partial fill upon patient request if the prescription is for a schedule II opioid drug., 152, cm,... Start Date: 12/17/22 Status: Ordered diclofenac 1% topical gel 1 application, Topically, 4 times a day, # 100 Gm, 0 Refills, Maintenance, 12/25/22 11:12:00 EDT, [facility] #[id number], Partial fill upon patient request if the prescription is for a schedule II opioid drug., 152, cm, 12/25/22 10:26:00 EDT... Start Date: 12/25/22 Status: Ordered diphenhydrAMINE 50 mg oral tablet 1 tablet = 50 mg, By Mouth, Once, [address] scan, # 1 tablet, 2 Refills, Soft Stop, 10/15/22 14:04:00 EDT, [facility] #[id number], Partial fill upon patient request if the prescriptionis for a schedule II opioid drug., 148.5, cm, 06/13... Start Date: 10/15/22 Status: Ordered duloxetine 30 [...] 11/03/22 16:12:00 EDT, Route to Pharmacy Electronically, [facility] #[id number], Partial fill upon patient request if the [...] 2 Refills, Maintenance, 09/08/22 10:06:00 EDT, Tablet, [facility] #[id number],... Start Date: 09/08/22 Status: Ordered lisinopril 5 mg oral tablet 5 mg, 1, tablet, By Mouth, Daily, # 90 tablet, Refills 1, Tot. Refills 1, Maintenance, 09/02/22 9:47:00 EDT, Route to Pharmacy Electronically, [facility] #[id number], 150, cm, 08/27/22 14:11:00 EDT, Height, 45.9, [...] Effective Dates Health Status Clinical Service Informant HTN (hypertension) Discharge Diagnosis 02/17/23 LBBB (left bundle branch block) Discharge Diagnosis 02/17/23 Sinus tachycardia Discharge Diagnosis 02/17/23 Vital Signs Most recent to oldest [Reference Range]: 1 Height 152 cm (02/17/23 10:37 AM) Weight 46.6 kg (02/17/23 10:37 AM) Oxygen Saturation [94-100 %] 100 % (02/17/23 10:37 AM) Pulse Rate [55-90 bpm] 108 bpm *H* (02/17/23 10:37 AM) Body Mass Index [18.5-24.99 kg/m2] 20.17 kg/m2 (02/17/23 10:37 AM) Blood Pressure [90-138/55-84 mm Hg] 152/ 77mm Hg *H* (02/17/23 10:37 AM) Blood pressure sites Arm, right (02/17/23 10:37 AM) Weight Obtained Via Standing scale (02/17/23 10:37 AM) Social History Social History Type Response Smoking Status Never (less than 100 in lifetime) entered on: 05/30/19 Sex EKG study * Event Display: ECG 12-Lead Authored Date: Please click on pdf link to open report * Event Display: ECG 12-Lead Authored Date: Ventricular Rate: 101 BPM Atrial Rate: 101 BPM P-R Interval: 128 ms QRS Duration: 116 ms Q-T Interval: 368 ms QTC Calculation(Bazett): 477 ms P Olney: 72 degrees R Olney: -28 degrees T Olney: 103 degrees Sinus tachycardia Left bundle branch block Abnormal ECG When compared with ECG of 14-DEC-2022 06:31, No significant change was found Confirmed by CARLOS DESOUZA ([id number]) on 02/18/2023 8:03:00 AM [place]: CARLOS DESOUZA Cardiology Outpatient Note * Darnell Malik: PERFORM Event Display: Cardiology Note Office Authored Date: [id number] Patient: ??NAUN BOGGS ? Age:??78 Years?Sex:??Female?:??1945?? Patient Hx Cardiology Shared Clinical Summary 1.?? Hypertension 2.?? LBBB History of Present Illness/Interval History I am meeting Ms. Boggs today to discuss her blood pressure management. She has been seen in our office prior and has been followed for hypertension management as well as for her chronic left bundle branch block.? She explains that she was admitted in December 2022??for significant head and neck pain.?? She states that she woke up one morning with excruciating pain in her head, neck, shoulders, and chest.?? On my review of the discharge summary, it seems her symptoms are secondary to fibromyalgia.?? She hastrialed baclofen and gabapentin which did not help with her pain. Today, she states that her pain is improved, but still causing her lots of discomfort.?? She also reports various GI issues??that hasbeen causing her pain and discomfort as well.?? She wanted to come in for a visit today because??she has been noticing that her heart rate is elevated and her blood pressure is fluctuating.?? She states that her blood pressures are sometimes very normal, but will spike on occasion.?? She has no significant chest pain, shortness of breath, lightheadedness, dizziness, or palpitations. She denies orthopnea, PND, or lower extremity edema. ?? Review of Systems See HPI Physical Exam Vitals & Measurements HR:??108??(Peripheral)?? BP:??152/77?? SpO2:??100%?? HT:??152??cm?? WT:??46.6??kg?? BMI:??20.17?? Weight lb/oz: 102 lb 12 oz Constitutional: Alert, in no distress. HEENT: Sclerae anicteric, mucous membranes moist Respiratory: Clear to auscultation. No wheezing, rales or rhonchi. Cardiovascular: Regular rate and rhythm, S1 S2. No murmurs, rubs, gallops. Skin: No rashes or lesions. No petechiae or purpura.?? Extremities: Warm, no edema. No cyanosis or clubbing. Psychiatric: Normal mood and affect?? Assessment/Plan 1.??HTN (hypertension) Initially elevated on intake.?? This improved to 134/76 on my recheck.?? Her blood pressure is likely fluctuating in response to her recent issues of pain, which is suboptimally managed.?? She has plans to meet with her primary care provider for further management of this.?? I am holding off on changing her antihypertensive regimen as her BP fluctuations would likely resolve once her pain and discomfort is better controlled. Ordered: ECG 12 Lead ?? 2.??Sinus tachycardia ECG today shows sinus tachycardia at a rate of 101bpm.?? As above, her sinus tachycardia is likely due to her pain.?? She has no chest pain, lightheadedness, dizziness, palpitations, pre-syncope, or syncope.?? This would likely improve with good control of her pain. Holding off on any further evaluation for now. Ordered: ECG 12 Lead ?? 3.??LBBB (left bundle branch block) Chronic LBBB.?? Echocardiogram 11/2021 showing normal LV size and wall thickness, LVEF 50-55%.?? Shehas a repeat echocardiogram pending next month. Ordered: ECG 12 Lead ? Follow up in 3 months with Savanah Vincent per patient preference. Problem List/Past Medical History Ongoing Abdominal pain, generalized Acid reflux Anxiety Arthritis Arthritis of carpometacarpal (CMC) joint of left thumb Cervicothoracic kyphosis Change in bowel habits CMC arthritis Colonic polyp Elevated blood pressure reading without diagnosis of hypertension Fibromyalgia Hemorrhoids History of hemicolectomy- due to a large adenoma polyp- 2022, complicated healing Hypothyroid Lab test positive for detection of COVID-19 virus LBBB - Left bundle branch block Low back pain radiating down leg Mass of cecum MGUS (monoclonal gammopathy of unknown significance) Multilevel degenerative disc disease Multiple drug allergies Osteoporosis Rectal bleeding Renal mass of unknown nature Vaccine reaction Venous stasis Procedure/Surgical History Hemicolectomy- due to large adenoma: 2022 Colonoscopy: 06/21/19 Salpingectomy D&C - Dilatation and curettage section Hysterectomy Colpotomy Appendectomy Home Medications baclofen 5 mg oral tablet, 0.5 mg, By Mouth, 3 times a day, 1 refills Cane, See Instructions diclofenac 1% topical gel, 1 application, Topically, 4 times a day, PRN diclofenac 1% topical gel, 1 application, Topically, 4 times a day diphenhydrAMINE 50 mg oral tablet, 50 mg= 1 tablet, By Mouth, Once, 2 refills duloxetine 30 mg oral enteric coated capsule, 30 mg= 1 capsule, By Mouth, Daily EpiPen 2-Jerman, 0.3 mg, Intramuscular, Once famotidine 20 mg oral tablet, 20 mg= 1 tablet, By Mouth, Daily ibandronate 150 mg oral tablet, 150 mg= 1 tablet, By Mouth, Every 30 days, 2 refills lisinopril 5 mg oral tablet, 5 mg= 1 tablet, By Mouth, Daily, 1 refills Omeprazole, 40 mg, By Mouth, Daily physical therapy, See Instructions Readi-Cat 2 oral suspension, See Instructions Follow-Up Appointments Added Follow Up ?Time Frame ?Comments Carlton BARRERA, Savanah Horner?3 ?? Months Lab Results Cardiology Labs WBC: 8.7 k/mm3 (12/15/22) RBC: 4.54 m/mm3 (12/15/22) Hgb: 12.3 Gm/dL (12/15/22) Hct: 38.1 % (12/15/22) MCV: 83.9 femtoliters (12/15/22) MCH: 27.1 pg (12/15/22) MCHC:??32.3 g/dL??Low (12/15/22) Platelet Count: 250 k/mm3 (12/15/22) RDW-SD: 43.1 femtoliters (12/15/22) Nucleated RBC (Automated): 0 #/100 WBC'S (12/15/22) Abs. Neut:??12.2 k/mm3??High (12/14/22) Abs. Lymph: 0.8 k/mm3 (12/14/22) Abs. [place]:??1.2 k/mm3??High (12/14/22) Abs. Eo: 0 k/mm3 (12/14/22) Abs. Baso: 0 k/mm3 (12/14/22) Neut %:??85 %??High (12/14/22) [place] %: 8.5 % (12/14/22) Eos %: 0 % (12/14/22) Baso %: 0.3 % (12/14/22) Imm Gran: 0.6 % (12/14/22) Abs. Imm Gran: 0.1 k/mm3 (12/14/22) Sodium: 137 mmol/L (12/15/22) Potassium: 4.2 mmol/L (12/15/22) Chloride: 103 mmol/L (12/15/22) Bicarbonate Level: 23 mmol/L (12/15/22) Glucose Level: 87 mg/dL (12/15/22) BUN: 11 mg/dL (12/15/22) Creatinine-Blood: 0.7 mg/dL (12/15/22) Calcium: 8.8 mg/dL (12/15/22) Protein, Total:??6 Gm/dL??Low (11/03/22) Albumin: 4 Gm/dL (11/03/22) Alkaline Phosphatase: 69 units/L (11/03/22) AST (SGOT): 12 units/L (11/03/22) ALT (SGPT): 9 units/L (11/03/22) Bilirubin, Total: 0.4 mg/dL (11/03/22) Diagnostic Impression ECG ECG 12-Lead ?? 06:31:18 Please click on pdf link to open report ?? Signed By: Radha Roman DO ?? ECG 12-Lead ?? 06:31:18 Ventricular Rate: 125 BPM Atrial Rate: 125 BPM P-R Interval: 124 ms QRS Duration: 112 ms Q-T Interval: 334 ms QTC Calculation(Bazett): 482 ms P Olney: 29 degrees R Olney: -34 degrees T Olney: 105 degrees Sinus tachycardia Left axis deviation Incomplete left bundle branch block Left ventricular hypertrophy with repolarization abnormality ( Edu product ) Abnormal ECG When compared with ECG of 22-JAN-2022 14:11, Vent. rate has increased BY 49 BPM Confirmed by RADHA ROMAN MD ([id number]) on 12/14/2022 5:50:55 PM ?? [place]: RADHA ROMAN MD ?? Signed By: Radha Roman DO Stress Test NM Myocard Perf SPECT Multi ?? 10:45:00 Summary Normal. No evidence of stress induced ischemia or prior myocardial infarction. Normal left ventricular ejection fraction, no wall motion abnormalities, normal chamber size. Low likelihood of hemodynamically significant coronary artery disease. Compared with report of study 2012 from there has been no change . ?? Signatures _ _ ?? Signed By: Angel Ivey MD Echo Echocardiogram - Complete ?? 09:12:55 Summary The left ventricular size is normal. Left ventricular wall thickness is normal. The LV systolic function is low normal . The left ventricular ejection fraction is 50-55 %. Abnormal septal motion consistent with conduction abnormality. Indeterminant diastolic significant valve abnormality not appreciated ?? Comparison Comparison is made to the study of April 02, 2021. There is no significant change. ?? Signature ?? Signed By: Lefty Plummer MD, Florencio Iglesias Note * Sarina Rios: PERFORM, SIGN, VERIFY Event Display: Patient Education/Instruction Authored Date: [id number] [facility] *[facility] Off Clinical Summary Name NAUN BOGGS Age 78 Years 1945 PCP Lawrence GERBER, Ruma Bauer PCP Visit Date 02/17/2023 10:21:00 Additional Instructions: Scheduled Appointments?? Future Appointments ?*[facility] ?[address]??[place],??[place],??[address] ?Phone:??--?Fax:??-- ?Appt. Date:??02/27/2023?8:00 AM ?Scheduled Provider:??Ruma Bravo MD ?[facility]Hrt??Vas??Diag ?Phone:??--?Fax:??-- ?Appt. Date:??03/20/2023?1:30 PM ?Scheduled Provider:??Echo [place] ?*[facility] ?Phone:??--?Fax:??-- ?Appt. Date:??03/24/2023?9:30 AM ?Scheduled Provider:??Laury Espinosa MD ?[facility]??[place] ?[address]??[place],??[place],??[address] ?Phone:??[phone]?Fax:??-- ?Appt. Date:??04/15/2023?10:15 AM ?Scheduled Provider:??[facility] ?*[facility]Hrt[facility]Vas??Off ?[address]??[place],??[place],??[address] ?Phone:??--?Fax:??-- ?Appt. Date:??05/11/2023?11:00 AM ?Scheduled Provider:??Savanah Chalrton Follow-Up Instructions ?? With: Address: When: Savanah Charlton In 3 months Diagnosis Left bundle-branch block, unspecified; Essential (primary) hypertension; Tachycardia, unspecified Medications: Please continue your medications until treatment is completed or stopped by your provider. Discuss any questions related to medications with your provider. Medications to Continue with No Changes These medications were not printed or sent to your pharmacy Baclofen (baclofen 5 mg oral tablet) 0.5 Milligram Oral 3 times a day for 30 Days. Refills: 1. Next Dose: Barium Sulfate (Readi-Cat 2 oral suspension) Dispense Two 450mL bottles. Take as instructed.. Refills: 0. Next Dose: Diclofenac Topical (diclofenac 1% topical gel) 1 leo Topically 4 times a day as needed Pain , Moderate. Refills: 0. Next Dose: Diclofenac Topical (diclofenac 1% topical gel) 1 leo Topically 4 times a day. Refills: 0. Next Dose: DiphenhydrAMINE (diphenhydrAMINE 50 mg oral tablet) 1 tab(s) Oral once. [address] scan. Refills: 2. Next Dose: Duloxetine (duloxetine 30 mg oral enteric coated capsule) 1 capsule Oral Daily for 60 Days. Take one tablet per day (30 mg) for management of chronic pain. After two weeeks, may increase to 2 tablets(60 mg) per day if desired effect not reached by one tablet per day.. Refills: 0. Next Dose: Durable Medical Equipment (Cane) Dx foot pain. Refills: 0. Next Dose: EPINEPHrine (EpiPen 2-Jerman) 0.3 Milligram Intramuscular once. Next Dose: Famotidine (famotidine 20 mg oral tablet) 1 tab(s) Oral Daily for 5 Days. Refills: 0. Next Dose: Ibandronate (ibandronate 150 mg oral tablet) 1 tab(s) Oral every 30 days. Swallow whole w/6-8oz water 1HR before first food, drink, med-Do not lie down for 1HR & until after first food. Refills: 2. Next Dose: Lisinopril (lisinopril 5 mg oral tablet) 1 tab(s) Oral Daily for 90 Days. Refills: 1. Next Dose: Miscellaneous Rx (physical therapy) 2 to 3 sessions per week for 8 weeks, adjust as needed. Patient has acute on chronic neck pain and fibromyalgia.. Refills: 0. Next Dose: Omeprazole 40 Milligram Oral Daily. Next Dose: Allergy Info:?? fentaNYL; Soy Products; Other Food Allergy; Nuts; Mold; Latex; Horses; Dust; Dogs; [place]; Contrast Dye; Cats; Adhesive Bandage; Biaxin XL; Bactrim; Tylenol; Levaquin; Augmentin; Tums; Cefzil; Fosamax; Cleocin T; Keflex; Benadryl, Topical; shellfish; sulfa drugs; caffeine; predniSONE;aspirin; metoprolol; sulfADIAZINE; penicillin; amoxicillin; erythromycin; clindamycin; tetracycline; doxycycline; ibuprofen; codeine; atenolol Medications Given This Visit Future Orders ?No future orders Vital Signs Height 152 cm Weight 46.6 kg BMI 20.17 kg/m2 Blood Pressure 152 mm Hg/77 mm Hg Temperature Pulse Rate 108 bpm Respiratory Rate 02 Sat Mode of Delivery 100 %/ You can now view a summary of your hospital visit from the comfort of your home through a free online portal called [employer]Ring. [employer] is a website that allows you to securely view your medical information including discharge summary, medications and follow-up visits. ??You can alsosend a secure electronic message to your doctor???s office to request appointments, renew medications or just ask a question. You can enroll at [email or web address] or register during your next office visit. [...] primary care provider, you may find a [facility] provider by calling [facility] [employer] Link at [phone]. [facility], in keeping with [facility] guidance, no longer requires face masks for staff, patientsor visitors in most situations. Similar to time spent indoors at other locations, there is the chance that you were exposed to respiratory viruses during your time with us (such as flu or COVID-19).? If you develop symptoms concerning for a viral respiratory infection, please seek testing (and treatment if indicated) from your medical provider or home test kit. For information about the plan of care [...] Care Team Personnel Name: Yin Hsu Position: [facility] Onco RN Member Role: Primary Care Nurse Name: Ruma Bravo MD Position: [facility] Physician - Primary Care Member Role: PCP Address: Address: [address] [place] [address] Family Medicine [address] Name: Shikha Rivera RN Position: [facility] RN Member Role: Primary Care Nurse Name: Consuelo Louis RN Position: [facility] RN Member Role: Primary Care Nurse Name: Cherry Olsen MD Position: [facility] DIE PRESSER MD Member Role: Lifetime DIE PRESSER Physician Address: Address: [address] [place] [address] Women's Health Perl Software Engineer [place], [place] [address] Name: Maeve Jones RN Position: [facility] RN Member Role: Primary Care Nurse Care Team Related Persons Name: MEG BOGGS Address: home [address] [place] [address] Name: JAKE RODRIGUES Address: [place] [address]
--- OUTSIDE RECORDS SUMMARY | 2023-05-02 12:10 | XMS_ITS | Continuity of Care Document ---
Author Name Unknown Organization [facility] ter Address [address] [place] [address]- Care Team Providers Care Logistics Supply Officer Name Role Phone Yolanda Fischer MD Primary Care Physician Encounter [facility] [place] [facility] Date(s): 11/02/20 - 11/06/[address] [address]- Encounter Diagnosis Cellulitis of arm(Final) - 11/02/20 Discharge Disposition: A-Transfer VNA/Home Health Attending Physician: Marielle Nelson MD Admitting Physician: Renée GERBER, Anuradha Rider Referring Physician: Not on Staff, Referring MD [...] rash Active Cats Active Contrast Dye Active [place] Active Dogs Active Dust Active Horses Active Latex rash Active Mold Active Nuts Active Pork Active Soy Products Active fentaNYL Active 1Rash 2rash 3Pt States she tolerates Benadryl by mouth fine 11/06/20 Immunizations Given and Recorded Vaccine Date Status Refusal Reason tetanus-diphtheria toxoids (Td) 1 07/06/19 Given tetanus/diphtheria/pertussis, acel(Tdap) 2 01/25/10 Given 1Result Comment: wrong chart 2Admin Note: vis given 03-21-2008 Medications linezolid 600 mg oral tablet 1 tablet = 600 mg, By Mouth, Every 12 hours, for 10 days, # 20 tablet, 0 Refills, Acute 11/16/20 7:37:00 EDT, 11/06/20 7:37:00 EDT, Tablet, [facility], Partial fill upon patient requestif the prescription is for a schedule II opioid lizbeth... Start Date: 11/06/20 Stop Date: 11/16/20 Status: Ordered Problem List Condition Effective Dates [...] stasis(Confirmed) Active 1Dr Melo rheum 2Dr [place] pressure controller multiple food and drug allergies 3[facility] 4colonoscopy 06/21/2019 removed 4 polyps. if positive for ca will need colon resection Results Orders for Microbiology Reports Name Date Blood Culture 11/02/20 Blood Culture #2 11/02/20 Microbiology Reports TEST:Blood Culture, Second Order STATUS:Unauthenticated BODY SITE: SOURCE:Blood COLLECTED DATE/TIME:11/02/20 5:01 PM Blood Culture, Second Order SPECIMEN DESCRIPTION : BLOOD RAC SPECIAL REQUESTS : NONE CULTURE : NO GROWTH 4 DAYS REPORT STATUS : PRELIMINARY REPORT TEST:Blood Culture STATUS:Unauthenticated BODY SITE: SOURCE:Blood COLLECTED DATE/TIME:11/02/20 4:56 PM Blood Culture SPECIMEN DESCRIPTION : BLOOD RAC SPECIAL REQUESTS : NONE CULTURE : NO GROWTH 4 DAYS REPORT STATUS : PRELIMINARY REPORT Vital Signs Most recent to oldest [Reference Range]: 1 2 3 Height 150 cm (11/06/20 1:43 PM) 150 cm (11/06/20 5:14 AM) 150 cm (11/06/20 2:13 AM) Weight 51.9 kg (11/03/20 3:23 AM) Oxygen Saturation [94-100 %] 100 % (11/06/20 1:43 PM) 99 % (11/06/20 5:14 AM) 98 % (11/06/20 2:13 AM) Pulse Rate [55-90 bpm] 101 bpm *H* (11/06/20 1:43 PM) 85 bpm (11/06/20 5:14 AM) 89 bpm (11/06/20 2:13 AM) Blood Pressure [90-138/55-84 mm Hg] 120/66mm Hg (11/06/20 1:43 PM) 130/80mm Hg (11/06/20 5:14 AM) 130/73mm Hg (11/06/20 2:13 AM) Respiratory Rate [16-30 br/min] 22 br/min (11/06/20 1:43 PM) 18 br/min (11/06/20 5:14 AM) 17 br/min (11/06/20 2:13 AM) Temperature [96.8-100.4 DegF] 98.4 DegF (11/06/20 1:43 PM) 98.2 DegF (11/06/20 5:14 AM) 98.3 DegF (11/06/20 2:13 AM) Mode of Delivery (Oxygen) Room air (11/06/20 1:43 PM) Room air (11/06/20 5:14 AM) Room air (11/06/20 2:13 AM) Blood pressure sites Arm, left (11/06/20 1:43 PM) Arm, left (11/06/20 5:14 AM) Arm, left (11/06/20 2:13 AM) Temperature Route Oral (11/06/20 1:43 PM) Oral (11/06/20 5:14 AM) Oral (11/06/20 2:13 AM) Weight Obtained Via Bed scale (11/03/20 3:23 AM) Social History Social History Type Response Smoking Status Never (less than 100 in lifetime) entered on: 05/30/19 Sex
--- OUTSIDE RECORDS SUMMARY | 2023-05-02 12:10 | XMS_ITS | Continuity of Care Document ---
Author Name Unknown Organization [facility] Address [address] [place] [address]- Care Team Providers Care Medical Services Manager Name Role Phone Rahat GERBER, Gaye Macias Primary Care Physician ( [phone] [place] [facility] [place] - 11/20/21 [facility] [address] [place], [place] [address] Attending Physician: Steve, Will Admitting Physician: Admtr, Will Referring Physician: Admtr, Ar8 Allergies, Adverse Reactions, [...] rash Active Cats Active Contrast Dye Active [place] Active Dogs Active Dust Active Horses Active [...]
--- OUTSIDE RECORDS SUMMARY | 2023-05-02 12:10 | XMS_ITS | Continuity of Care Document ---
Author Name Unknown Organization [facility] Address [address] [place] [address]- Care Team Providers Care Fondant Cooker Name Role Phone Yolanda Fischer MD Primary Care Physician Encounter [facility] [place] [facility] Date(s): 11/10/19 - 12/10/19 [facility] [address] [place] [address]- [facility] Attending Physician: Admtr, Ar8 Admitting Physician: [...] Bactrim Active Biaxin XL Active Cats Active Contrast Dye Active [place] Active Dogs Active Dust Active Horses Active Latex rash Active Mold Active Nuts Active Pork Active Soy Products Active fentaNYL Active Adhesive Bandage rash Active Fosamax Active Immunizations Given and Recorded Vaccine Date [...] stasis(Confirmed) Active 1Dr Melo rheum 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 if positive for ca will need colon resection Social History Social History Type Response Smoking Status Never (less than 100 in lifetime) entered on: 05/30/19 Sex Female
--- OUTSIDE RECORDS SUMMARY | 2023-05-02 12:10 | XMS_ITS | Continuity of Care Document ---
Author Name Unknown Organization [facility] Address [address] [place] [address]- Care Team Providers Care Bridge Repairer Name Role Phone Rahat GERBER, Gaye Macias Primary Care Physician [place] [facility] [place](s[place] 07/19/21 - 08/18/21 [facility] [address] [place] [address]- Allergies, Adverse Reactions, Alerts Substance Reaction Severity [...] rash Active Cats Active Contrast Dye Active [place] Active Dogs Active Dust Active Horses Active [...] each, 2 Refills, Maintenance, 12/25/20 10:09:00 EDT, [facility] #[id number], Partial fill upon patient request if the [...] gammopathy of unknown significance)(Confirmed) Active Osteoporosis(Confirmed) Active Medicare annual wellness vis it, subsequent(Confirmed) Active Colonic polyp(Confirmed) 4 Active Rectal bleeding(Confirmed) Active Lab test positive for detect ion of COVID-19 virus(Confirmed) 5 Active Vaccine reaction(Confirmed) 6 Active Venous stasis(Confirmed) Active 1Dr Melo rheum 2Dr Soco frozen pie maker multiple food and drug allergies 3[facility] [...]
--- OUTSIDE RECORDS SUMMARY | 2023-05-02 12:11 | XMS_ITS | Continuity of Care Document ---
Author Name Unknown Organization [facility] Address [address] [place] [address]- Care Team Providers Care Welding Machine Operator Electro Gas Name Role Phone Yolanda Fischer MD Primary Care Physician [place] [facility] [place] 07/10/20 - 07/17/20 [facility] [address] [place] [address]- Encounter Diagnosis Dyspnea(Discharge Diagnosis) - 07/10/20 Attending Physician: Renetta Woods NP Referring Physician: Yolanda Fischer MD Allergies, Adverse [...] rash Active Cats Active Contrast Dye Active [place] Active Dogs Active Dust Active Horses Active [...] 3 capsule, 1 Refills, Maintenance, 04/17/20 10:01:00 [id number], [place]... Start Date: 04/17/20 Status: Ordered Multivitamins [...] Active 1Dr Melo rheum 2Dr Soco public health worker multiple food and drug allergies 3[facility] 4colonoscopy 06/21/2019 removed 4 polyps. if positive for ca will need colon resection Diagnosis Diagnosis Type Effective Dates Health Status Clini jennifer Service Informant Dyspnea Discharge Diagnosis 07/10/20 Vital Signs Most recent to oldest [Reference Range]: 1 Height 150.0 cm (07/10/20 8:57 AM) Social History Social History Type Response Smoking Status Never (less than 100 in lifetime) entered on: 05/30/19 Sex Female
--- OUTSIDE RECORDS SUMMARY | 2023-05-02 12:11 | XMS_ITS | Continuity of Care Document ---
Author Name Unknown Organization [facility] Address [address] [place] [address]- Care Team Providers Care Shaft Mechanic Name Role Phone Rahat GERBER, Gaye Macias Primary Care Physician ( [phone] Encounter [facility] [place] Date(s): 09/20/21 - 10/20/21 [facility] [address] [place] [address]- Allergies, Adverse Reactions, Alerts Substance Reaction Severity [...] rash Active Cats Active Contrast Dye Active [place] Active Dogs Active Dust Active Horses Active [...]
--- OUTSIDE RECORDS SUMMARY | 2023-05-02 12:11 | XMS_ITS | Continuity of Care Document ---
Author Name Unknown Organization [facility] Address [address] [place] [address]- Care Team Providers Care Production Administrative Assistant Name Role Phone Yolanda Fischer MD Primary Care Physician [place] [facility] [place]13[place]20 - 12/13/20 [facility] [address] [place] [id number] Allergies, Adverse Reactions, Alerts Substance Reaction Severity [...] rash Active Cats Active Contrast Dye Active [place] Active Dogs Active Dust Active Horses Active [...] stasis(Confirmed) Active 1Dr Melo rheum 2Dr Soco unloader operator multiple food and drug allergies 3[facility] 4colonoscopy 06/21/2019 removed 4 polyps. if positive for ca will need colon resection Social History Social History Type Response Smoking Status Never (less than 100 in lifetime) entered on: 05/30/19 Sex
--- OUTSIDE RECORDS SUMMARY | 2023-05-02 12:11 | XMS_ITS | Continuity of Care Document ---
Author Name Unknown Organization [facility] Address [address] [address]- Care Team Providers Care Political Consultant Name Role Phone Yolanda Fischer MD Primary Care Physician En[facility] [place] [facility] [id number] Date(s): 01/14/21 - 01/21/21 [facility] [address] [address]- Attending Physician: Savanah Charlton Admitting Physician: Savanah Charlton Referring Physician: Yolanda Fischer MD Allergies, Adverse Reactions, Alerts Substance Reaction Severity Status atenolol Active codeine Active ibuprofen Active doxycycline 1 Moderate Active tetracycline Active clindamycin Active erythromycin Active penicillin Active sulfADIAZINE All sulfa drugs Active metoprolol Active aspirin Active caffeine Active shellfish Active Benadryl, Topical 2 Active Keflex Active Fosamax Active Cefzil Active Tums Active Levaquin Active Tylenol Active Bactrim Active Adhesive Bandage rash Active Cats Active Contrast Dye Active [place] Active Dogs Active Dust Active Horses Active Latex rash Active Mold Active Nuts Active Pork Active Soy Products Active fentaNYL Active Biaxin XL Active vancomycin 3 rash Persistent Mild Active Cleocin T Active 1Rash 2Pt States she tolerates Benadryl by mouth fine 11/06/20 3rash Immunizations Given and Recorded Vaccine Date Status Refusal Reason SARS-CoV-2 (COVID-19) mRNA BNT-162b2 vac 08/29/20 Recorded tetanus-diphtheria toxoids (Td) 1 07/06/19 Given tetanus/diphtheria/pertussis, acel(Tdap) 2 01/25/10 Given 1Result Comment: wrong chart 2Admin Note: vis given 03-21-2008 Medications ibandronate 150 mg oral tablet 1 tablet = 150 mg, By Mouth, Every 28 days, # 3 each, 2 Refills, Maintenance, 12/25/20 10:09:00 EDT, [facility] #[id number], Partial fill upon patient request if the [...] kit, 0 Refills, Maintenance, 01/14/21 12:14:00 EDT, [facility] #[id number], Partial fill upon patient request if the [...] stasis(Confirmed) Active 1Dr Melo rheum 2Dr Soco wet room worker multiple food and drug allergies 3[facility] 4colonoscopy 06/21/2019 removed 4 polyps. if positive for ca will need colon resection Vital Signs Most recent to oldest [Reference Range]: 1 Height 150 cm (01/14/21 9:17 AM) Weight 53 kg (01/14/21 9:17 AM) Oxygen Saturation [94-100 %] 100 % (01/14/21 9:17 AM) Pulse Rate [55-90 bpm] 92 bpm *H* (01/14/21 9:17 AM) Body Mass Index [18.5-24.99] 23.56 (01/14/21 9:17 AM) Blood Pressure [90-138/55-84 mm Hg] 139/ 61mm Hg *H* (01/14/21 9:17 AM) Blood pressure sites Arm, left (01/14/21 9:17 AM) Weight Obtained Via Standing scale (01/14/21 9:17 AM) Social History Social History Type Response Smoking Status Never (less than 100 in lifetime) entered on: 05/30/19 Sex
--- OUTSIDE RECORDS SUMMARY | 2023-05-02 12:11 | XMS_ITS | Continuity of Care Document ---
Author Name Unknown Organization [facility] Address [address] [place] [address]- Care Team Providers Care Digital Project Manager Name Role Phone Yolanda Fischer MD Primary Care Physician Encounter [facility] Date(s): 08/10/19 - 08/17/19 [facility] [address] [place] [address]- [place] Encounter Diagnosis Myalgia(Discharge Diagnosis) - 08/10/19 Attending Physician: Rahat GERBER, Gaye Macias Allergies, Adverse Reactions, Alerts Substance Reaction Severity Status atenolol Active codeine Active ibuprofen Active tetracycline Active erythromycin Active penicillin Active sulfADIAZINE All sulfa drugs Active metoprolol Active aspirin Active caffeine Active shellfish Active Benadryl, Topical Active Keflex Active Cleocin T Active Fosamax Active Cefzil Active Tums Active Levaquin Active Tylenol Active Bactrim Active Biaxin XL Active Adhesive Bandage rash Active Cats Active [place] Active Dogs Active Dust Active Horses Active [...] Colonic polyp(Confirmed) 4 Active Rectal bleeding(Confirmed) Active 1Dr Melo rheum 2Dr Soco easement worker multiple food and drug allergies 3[facility] 4colonoscopy 06/21/2019 removed 4 polyps. if positive for ca will need colon resection Diagnosis Diagnosis Type Effective Dates Health Status Clini jennifer Service Informant Myalgia Discharge Diagnosis 08/10/19 Social History Social History Type Response Smoking Status Never (less than 100 in lifetime) entered on: 05/30/19 Sex
--- OUTSIDE RECORDS SUMMARY | 2023-05-02 12:11 | XMS_ITS | Continuity of Care Document ---
Author Name Unknown Organization [facility] Address [address] [place] [address]- Care Team Providers Care Brass Molder Helper Name Role Phone Rahat GERBER, Gaye Macias Primary Care Physician ( [phone] En[place] [facility] [place] Date(s): 12/23/21 - 01/22/22 [facility] [address] [place] [address]- Allergies, Adverse Reactions, Alerts Substance Reaction Severity Status atenolol Active codeine Active doxycycline 1 Moderate Active tetracycline Active penicillin Active caffeine Active shellfish Active Benadryl, Topical 2 Active Keflex Active Cleocin T Active ibuprofen Active aspirin Active clindamycin Active erythromycin Active sulfADIAZINE All sulfa drugs Active vancomycin 3 rash Persistent Mild Active metoprolol Active Fosamax Active Cefzil Active Tums Active Levaquin Active Tylenol Active Horses Active Latex rash Active Mold Active Nuts Active Soy Products Active fentaNYL Active Bactrim Active Biaxin XL Active Adhesive Bandage rash Active Cats Active [place] Active Contrast Dye Active Dogs Active Dust Active 1Rash 2Pt States she tolerates Benadryl [...] 01/22/22 15:19:00 EDT, Route to Pharmacy Electronically, [facility] #[id number], Partialfill upon patient request if the prescription [...] Name: Rahat GERBER, Gaye Macias Address: [address] [place] [address]-
--- OUTSIDE RECORDS SUMMARY | 2023-05-02 12:11 | XMS_ITS | Continuity of Care Document ---
Author Name Unknown Organization [facility] Address [address] [place] [address]- Care Team Providers Care Crusher Supervisor Name Role Phone Yolanda Fischer MD Primary Care Physician Encounter [facility] Date(s): 03/26/20 - 06/09/20 [facility] [address] [place] [address]- Attending Physician: Mazin Del Rosario MD Referring Physician: Yolanda Fischer MD Allergies, [...] rash Active Cats Active Contrast Dye Active [place] Active Dogs Active Dust Active Horses Active [...] capsule, 1 Refills, Maintenance, 04/17/20 10:01:00 EST, [facility][id number], [place]... Start Date: 04/17/20 Status: Ordered Multivitamins [...] Venous stasis(Confirmed) Active 1Dr Melo rheum 2Dr Lillieawwar movie editor multiple food and drug allergies 3[facility] 4colonoscopy 06/21/2019 removed 4 polyps. if positive for ca will need colon resection Social History Social History Type Response Smoking Status Never (less than 100 in lifetime) entered on: 05/30/19 Sex Female
--- OUTSIDE RECORDS SUMMARY | 2023-05-02 12:11 | XMS_ITS | Continuity of Care Document ---
Author Name Unknown Organization [facility] Address [address] [address]- Care Team Providers Care Business Banker Name Role Phone Rahat GERBER, Gaye Macias Primary Care Physician Encounter [facility] [place] Date(s): 08/29/21 - 09/05/21 [facility] [address] [address]- Attending Physician: Savanah Charlton Admitting Physician: Savanah Charlton Referring Physician: Gaye Giang MD Allergies, Adverse Reactions, Alerts Substance Reaction Severity Status atenolol Active codeine Active clindamycin Active penicillin Active ibuprofen Active aspirin Active doxycycline 1 Moderate Active tetracycline Active erythromycin Active shellfish Active sulfADIAZINE All sulfa drugs Active vancomycin 2 rash Persistent Mild Active metoprolol Active caffeine Active Benadryl, Topical 3 Active Keflex Active Cleocin T Active Fosamax Active Cefzil Active Tums Active Levaquin Active Tylenol Active Horses Active Mold Active Nuts Active Pork Active Soy Products Active fentaNYL Active Latex rash Active Bactrim Active Biaxin XL Active Adhesive Bandage rash Active Cats Active [place] Active Contrast Dye Active Dogs Active Dust Active 1Rash 2rash [...] each, 2 Refills, Maintenance, 12/25/20 10:09:00 EDT, [facility] #[id number], Partial fill upon patient request if the [...] pain in her L hand on 10/07. Vital Signs Most recent to oldest [Reference Range]: 1 Height 150 cm (08/29/21 10:36 AM) Weight 52 kg (08/29/21 10:36 AM) Oxygen Saturation [94-100 %] 100 % (08/29/21 10:36 AM) Pulse Rate [55-90 bpm] 93 bpm *H* (08/29/21 10:36 AM) Body Mass Index [18.5-24.99] 23.11 (08/29/21 10:36 AM) Blood Pressure [90-138/55-84 mm Hg] 114/ 67mm Hg (08/29/21 10:36 AM) Blood pressure sites Arm, left (08/29/21 10:36 AM) Weight Obtained Via Standing scale (08/29/21 10:36 AM) Social History Social History Type Response Smoking Status Never (less than 100 in lifetime) entered on: 05/30/19 Sex
--- OUTSIDE RECORDS SUMMARY | 2023-05-02 12:11 | XMS_ITS | Continuity of Care Document ---
Author Name Unknown Organization [facility] Address [address] [place] [address]- Care Team Providers Care Automobile Washer Steam Name Role Phone Yolanda Fischer MD Primary Care Physician En[facility] [place] Date(s): 11/26/20 - 12/26/20 [facility] [address] [place] [address]- Attending Physician: AdmWill mcdonough Admitting Physician: Admtr, Ar8 Referring Physician: Admtr, [...] rash Active Cats Active Contrast Dye Active [place] Active Dogs Active Dust Active Horses Active [...] each, 2 Refills, Maintenance, 12/25/20 10:09:00 EDT, [facility] #[id number], Partial fill upon patient request if the prescription is for a schedule II opioid drug., 150, cm, 12/25/20 9:32:00 EDT, H... Start Date: 12/25/20 Status: Ordered NuLYTELY with Flavor Packs oral powder for reconstitution 240 mL, By Mouth, Every 10 minutes, # 4,000 mL, 0 Refills, Maintenance, 12/25/20 10:32:00 EDT, REC Powder, [facility] #[id number], Partial fill upon patient request if the [...] stasis(Confirmed) Active 1Dr Melo rheum 2Dr Soco family assistant multiple food and drug allergies 3[facility] 4colonoscopy 06/21/2019 removed 4 polyps. if positive for ca will need colon resection Social History Social History Type Response Smoking Status Never (less than 100 in lifetime) entered on: 05/30/19 Sex
--- OUTSIDE RECORDS SUMMARY | 2023-05-02 12:11 | XMS_ITS | Continuity of Care Document ---
Author Name Unknown Organization [facility] Address [address] [place] [address]- Care Team Providers Care Dish Network Installer Name Role Phone Rahat GERBER, Gaye Macias Primary Care Physician [place] [facility] [place] 08/04/21 [facility] [address] [place] [address]- Discharge Disposition: A-D/C Home Attending Physician: Aleks Barger MD Admitting Physician: Aleks Barger MD Referring Physician: Shandra Armstrong NP Allergies, Adverse Reactions, Alerts Substance Reaction Severity Status atenolol Active codeine Active clindamycin Active erythromycin Active penicillin Active ibuprofen Active aspirin Active doxycycline 1 Moderate Active tetracycline Active shellfish Active sulfADIAZINE All [...] Active Adhesive Bandage rash Active Cats Active [place] Active Contrast Dye Active Dogs Active Dust Active Pork Active 1Rash 2rash 3Pt States [...] each, 2 Refills, Maintenance, 12/25/20 10:09:00 EDT, [facility] #[id number], Partial fill upon patient request if the [...] stasis(Confirmed) Active 1Dr Melo rheum 2Dr Soco profile saw operator multiple food and drug allergies 3[facility] 4colonoscopy 06/21/2019 removed 4 polyps. if positive for ca will need colon resection 5Late April 2020 6Pt. had 2nd Pfizer vaccine on 09/19 and pain in her L hand on 10/07. Vital Signs Most recent to oldest [Reference Range]: 1 Height 150 cm (06/04/21 9:38 AM) Weight 54.1 kg (06/04/21 9:38 AM) Pulse Rate [55-90 bpm] 91 bpm *H* (06/04/21 9:38 AM) Body Mass Index [18.5-24.99] 24.04 (06/04/21 9:38 AM) Blood Pressure [90-138/55-84 mm Hg] 135/ 58mm Hg (06/04/21 9:38 AM) Temperature [96.8-100.4 DegF] 97.3 DegF (06/04/21 9:38 AM) Blood pressure sites Arm, left (06/04/21 9:38 AM) Temperature Route Temporal (06/04/21 9:38 AM) Dry Weight 54.1 kg (06/04/21 9:38 AM) Weight Obtained Via Standing scale (06/04/21 9:38 AM) Dry Weight Obtained Via Standing scale (06/04/21 9:38 AM) Social History Social History Type Response Smoking Status Never (less than 100 in lifetime) entered on: 05/30/19 Sex
--- OUTSIDE RECORDS SUMMARY | 2023-05-02 12:11 | XMS_ITS | Continuity of Care Document ---
Author Name Unknown Organization [facility] Address [address] [place] [address]- Care Team Providers Care Intelligent Systems Engineer Name Role Phone Yolanda Fischer MD Primary Care Physician En[place] [facility] [place] Date(s): 02/23/20 - 03/01/20 [facility] [address] [place] [address]- [facility] Attending Physician: Melva Rice DO Referring Physician: Yolanda Fischer MD Allergies, Adverse [...] rash Active Cats Active Contrast Dye Active [place] Active Dogs Active Dust Active Horses Active [...] stasis(Confirmed) Active 1Dr Melo rheum 2Dr Soco burring machine operator multiple food and drug allergies 3[facility] 4colonoscopy 06/21/2019 removed 4 polyps. if positive for ca will need colon resection Vital Signs Most recent to oldest [Reference Range]: 1 Height 150.0 cm (02/23/20 9:58 AM) Oxygen Saturation [94-100 %] 100 % (02/23/20 9:58 AM) Pulse Rate [55-90 bpm] 93 bpm *H* (02/23/20 9:58 AM) Blood Pressure [90-138/55-84 mm Hg] 142/ 64mm Hg *H* (02/23/20 9:58 AM) Respiratory Rate [16-30 br/min] 16 br/mi n (02/23/20 9:58 AM) Temperature [96.8-100.4 DegF] 98.3 DegF (02/23/20 9:58 AM) Mode of Delivery (Oxygen) Room air (02/23/20 9:58 AM) Blood pressure sites Arm, left (02/23/20 9:58 AM) Temperature Route Temporal (02/23/20 9:58 AM) Social History Social History Type Response Smoking Status Never (less than 100 in lifetime) entered on: 05/30/19 Sex Female
--- OUTSIDE RECORDS SUMMARY | 2023-05-02 12:11 | XMS_ITS | Continuity of Care Document ---
Author Name Unknown Organization [facility] Address [address] [place] [address]- Care Team Providers Care Unit Director Name Role Phone Lawrence GERBER, Ruma Bauer Primary Care Physician [place] [facility] [place](s[place] 11/27/22 - 12/27/22 [facility] [address] [place] [address]- Allergies, Adverse Reactions, Alerts Substance Reaction Severity Status atenolol Active codeine Active clindamycin Active penicillin Active predniSONE Allergy to sulfa drugs Activ e sulfa drugs Active ibuprofen Active aspirin Active doxycycline 1 Moderate Active tetracycline Active erythromycin Active amoxicillin Active sulfADIAZINE All sulfa drugs Active metoprolol Active caffeine Active shellfish Active Benadryl, Topical 2 Active Keflex Active Fosamax Active Cefzil Active Tums Active Levaquin Active Tylenol Active Contrast Dye Active Horses Active Mold Active Nuts Active Cleocin T Active Augmentin Active Bactrim Active Biaxin XL Active Adhesive Bandage rash Active Cats Active [place] Active Dogs Active Dust Active Latex rash [...] 1Admin Note: vis given 03-21-2008 Medications baclofen 10 mg oral tablet 5 mg, By Mouth, 3 times a day, # 90 tablet, Refills 0, Tot. Refills 0, Maintenance, 12/17/22 11:48:00 EDT, Route to Pharmacy Electronically, [facility] #[id number], Partial fill upon patient request if the prescription is for a schedule II opioid... Start Date: 12/17/22 Stop Date: 01/16/23 Status: Ordered benzonatate 100 mg oral capsule 1 capsule = 100 mg, By Mouth, 3 times a day, PRN Cough, for 7 days, # 20 capsule, 0 Refills, Acute 01/01/23 11:11:00 EDT, 12/25/22 11:11:00 EDT, Capsule, [facility] #[id number], Partial fill upon patient request if the prescription is for a sched... Start Date: 12/25/22 Stop Date: 01/01/23 Status: Ordered Cane See Instructions, # 1 each, Maintenance, Dx foot pain, 05/29/22 14:59:00 EST, Supply, 150, cm, 05/29/22 13:34:00 EST, Height, 54.1, kg, 06/04/21 9:38:00 EST, Dry Weight Start Date: 05/29/22 Status: Ordered diclofenac 1% topical gel 1 application, Topically, 4 times a day, PRN Pain , Moderate, # 100 Gm, 0 Refills, Maintenance, 12/17/22 11:48:00 EDT, [facility] #[id number], Partial fill upon patient request if the prescription is for a schedule II opioid drug., 152, cm,... Start Date: 12/17/22 Status: Ordered diclofenac 1% topical gel 1 application, Topically, 4 times a day, # 100 Gm, 0 Refills, Maintenance, 12/25/22 11:12:00 EDT, Gel, [facility] #[id number], Partial fill upon patient request if the prescription is for a schedule II opioid drug., 152, cm, 12/25/22 10:26:00 EDT... Start Date: 12/25/22 Status: Ordered diphenhydrAMINE 50 mg oral tablet 1 tablet = 50 mg, By Mouth, Once, [address] scan, # 1 tablet, 2 Refills, Soft Stop, 10/15/22 14:04:00 EDT, [facility] #[id number], Partial fill upon patient request if the [...] 11/03/22 16:12:00 EDT, Route to Pharmacy Electronically, [facility] #[id number], Partial fill upon patient request if the prescription is for a schedule II opi... Start Date: 11/03/22 Stop Date: 11/08/22 Status: Ordered gabapentin 100 mg oral capsule 100 mg, By Mouth, Daily at bedtime, # 30 capsule, Refills 0, Tot. Refills 0, Maintenance, 12/17/22 11:48:00 EDT, Route to Pharmacy Electronically, [facility] #[id number], Partial fill upon patient request if the prescription is for a schedule II... Start Date: 12/17/22 Stop Date: 01/16/23 Status: Ordered ibandronate 150 mg oral tablet 1 tablet = 150 mg, By Mouth, Every 30 days, Swallow whole w/6-8oz water 1HR before first food, drink, med-Do not lie down for 1HR & until after first food, # 3 tablet, 2 Refills, Maintenance, 09/08/22 10:06:00 EDT, Tablet, [facility] #[id number],... Start Date: 09/08/22 Status: Ordered lisinopril 5 mg oral tablet 5 mg, 1, tablet, By Mouth, Daily, # 90 tablet, Refills 1, Tot. Refills 1, Maintenance, 09/02/22 9:47:00 EDT, Route to Pharmacy Electronically, [facility] #[id number], 150, cm, 08/27/22 14:11:00 EDT, Height, 45.9, [...] Care Team Personnel Name: Yin Hsu Position: [facility] Onco RN Member Role: Primary Care Nurse Name: Ruma Bravo MD Position: [facility] Physician - Primary Care Member Role: PCP Address: Address: [address] [place] [address] Name: Shikha Rivera RN Position: [facility] RN Member Role: Primary Care Nurse Name: Cherry Olsen MD Position: [facility] ORTHO RN MD Member Role: [facility]O RN Physician Address: Address: [address] [place], [place] [address]s Health Poker Manager [address] Name: Maeve Jones RN Position: [facility] RN Member Role: Primary Care Nurse Care Team Related Persons Name: MEG MARTIN Address: home [address] [place] [id number] Name: JAKE [place] [address]
--- OUTSIDE RECORDS SUMMARY | 2023-05-02 12:11 | XMS_ITS | Continuity of Care Document ---
Author Name Unknown Organization [facility] Address [address] [address]- Care Team Providers Care Head Of Academic Technology Name Role Phone Yolanda Fischer MD Primary Care Physician Encounter [facility] Date(s): 08/06/20 - 09/05/20 [facility] [address] [address]- [place] Allergies, Adverse Reactions, Alerts Substance Reaction [...] rash Active Cats Active Contrast Dye Active [place] Active Dogs Active Dust Active Horses [...] 3 capsule, 1 Refills, Maintenance, 04/17/20 10:01:00 [id number], [place]... Start Date: 04/17/20 Status: Ordered Multivitamins [...] stasis(Confirmed) Active 1Dr Melo rheum 2Dr Soco curator herbarium multiple food and drug allergies 3[facility] 4colonoscopy 06/21/2019 removed 4 polyps. if positive for ca will need colon resection Social History Social History Type Response Smoking Status Never (less than 100 in lifetime) entered on: 05/30/19 Sex Female
--- OUTSIDE RECORDS SUMMARY | 2023-05-02 12:11 | XMS_ITS | Continuity of Care Document ---
Author Name Unknown Organization [facility] Address [address] [place] [address]- Care Team Providers Care Chiller Hand Name Role Phone Yolanda Fischer MD Primary Care Physician Encounter [facility] Date(s): 10/08/20 - 11/07/20 [facility] [address] [place] [address]- Allergies, Adverse Reactions, Alerts Substance Reaction Severity [...] rash Active Cats Active Contrast Dye Active [place] Active Dogs Active Dust Active Horses Active [...] 11/16/20 7:37:00 EDT, 11/06/20 7:37:00 EDT, Tablet, [facility], Partial fill upon patient [...] stasis(Confirmed) Active 1Dr Melo rheum 2Dr Soco guide visitor multiple food and drug allergies 3[facility] 4colonoscopy 06/21/2019 removed 4 polyps. if positive for ca will need colon resection Social History Social History Type Response Smoking Status Never (less than 100 in lifetime) entered on: 05/30/19 Sex
--- OUTSIDE RECORDS SUMMARY | 2023-05-02 12:11 | XMS_ITS | Continuity of Care Document ---
Author Name Unknown Organization [facility] Address [address] [place] [address]- Care Team Providers Care Md Allergy Immunology Name Role Phone Amado GERBER, Yolanda Lance Primary Care Physician Encounter [facility] Date(s): 06/28/19 - 11/11/19 [facility] [address] [place] [address]- [facility] Attending Physician: Pretty GERBER, Cherry Gaines Allergies, Adverse Reactions, Alerts Substance Reaction Severity [...] rash Active Cats Active Contrast Dye Active [place] Active Dogs Active Dust Active Horses [...] EDT, Supply Start Date: 11/01/19 Status: Ordered oxyCODONE 5 mg oral tablet 5 mg, 1, tablet, By Mouth, Every 6 hours, PRN, for 3 days, # 7 tablet, Refills 0, Tot. Refills 0, Acute 11/13/19 12:27:00 EDT, as needed for pain, 11/10/19 12:27:00 EDT, Route to Pharmacy Electronically, [facility][id number], Partial fill upon... 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 if positive for ca will need colon resection Social History Social History Type Response Smoking Status Never (less than 100 in lifetime) entered on: 05/30/19 Sex Female
--- OUTSIDE RECORDS SUMMARY | 2023-05-02 12:11 | XMS_ITS | Continuity of Care Document ---
Author Name Unknown Organization [facility] Address [address] [address]- Care Team Providers Care Improvement Director Name Role Phone Yolanda Fischer MD Primary Care Physician Encounter [facility] Date(s): 07/05/20 - 08/15/20 [facility] [address] [address]- Attending Physician: Savanah Charlton Admitting Physician: Savanah Charlton Referring Physician: Savanah Charlton Allergies, Adverse Reactions, Alerts Substance Reaction Severity Status atenolol Active codeine Active ibuprofen Active tetracycline Active erythromycin Active penicillin Active sulfADIAZINE All sulfa drugs Active aspirin Active caffeine Active shellfish Active Benadryl, Topical Active Keflex Active Cleocin T Active Fosamax Active Cefzil Active Tums Active Levaquin Active Tylenol Active Bactrim Active Biaxin XL Active Adhesive Bandage rash Active Cats Active [place] Active Dogs Active Dust Active Latex rash Active Mold Active Nuts Active Pork Active Soy Products Active fentaNYL Active Contrast Dye Active metoprolol Active Horses Active Immunizations Given and Recorded Vaccine Date [...] 3 capsule, 1 Refills, Maintenance, 04/17/20 10:01:00 [facility][id number], [place]... 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 if positive for ca will need colon resection Social History Social History Type Response Smoking Status Never (less than 100 in lifetime) entered on: 05/30/19 Sex Female
--- OUTSIDE RECORDS SUMMARY | 2023-05-02 12:11 | XMS_ITS | Continuity of Care Document ---
Author Name Unknown Organization [facility] Address [address] [place] [address]- Care Team Providers Care Magazine Grinder Loader Name Role Phone Amado GERBER, Yolanda Lance Primary Care Physician Encounter 10/12/19 - 10/19/19 [facility] [address], [address] [place] [address]- [phone] Attending Physician: Eric Nina MD Admitting Physician: Eric Nina MD Referring Physician: Eric Nina MD Allergies, Adverse Reactions, Alerts Substance Reaction Severity Status atenolol Active codeine Active ibuprofen Active tetracycline Active erythromycin Active penicillin Active sulfADIAZINE All sulfa drugs Active metoprolol Active aspirin Active caffeine Active shellfish Active Benadryl, Topical Active Keflex Active Cleocin T Active Fosamax Active Cefzil Active Tums Active Levaquin Active Tylenol Active Bactrim Active Biaxin XL Active Adhesive Bandage rash Active Cats Active [place] Active Dogs Active Dust Active Horses Active [...] stasis(Confirmed) Active 1Dr Melo rheum 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 if positive for ca will need colon resection Social History Social History Type Response Smoking Status Never (less than 100 in lifetime) entered on: 05/30/19 Sex Female
--- OUTSIDE RECORDS SUMMARY | 2023-05-02 12:11 | XMS_ITS | Continuity of Care Document ---
Author Name Unknown Organization [facility] Address [address] [place] [address]- Care Team Providers Care Business Management Professor Name Role Phone Rahat GERBER, Gaye Macias Primary Care Physician ( [phone] Encounter [facility] Date(s): 11/13/21 - 11/20/21 [facility] [address] [place] [address]- Encounter Diagnosis Right foot pain(Discharge Diagnosis) - 11/13/21 Chronic venous insufficiency of lower extremity(Discharge Diagnosis) - 11/13/21 Abdominal pain, generalized(Discharge Diagnosis) - 11/16/21 Right ovarian cyst(Discharge Diagnosis) - 11/13/21 Mass of cecum(Discharge Diagnosis) - 11/16/21 Attending Physician: Zuleima HARDEN, Olivia Allergies, Adverse Reactions, [...] rash Active Cats Active Contrast Dye Active [place] Active Dogs Active Dust Active Horses Active [...] chart 2Admin Note: vis given 03-21-2008 Medications No Known Medications Problem List Condition Effective Dates Status Health [...] Effective Dates Health Status Clinical Service Informant Right foot pain Discharge Diagnosis 11/13/21 Right ovarian cyst Discharge Diagnosis 11/13/21 Chronic venous insufficiency of lower extremity Discharge Diagnosis 11/13/21 Mass of cecum Discharge Diagnosis 11/16/21 Abdominal pain, generalized Discharge Diagnosis 11/16/21 Vital Signs Most recent to oldest [Reference Range]: 1 2 Height 150 cm (11/13/21 10:34 AM) 150 cm (11/13/21 10:22 AM) Weight 51.5 kg (11/13/21 10:22 AM) Oxygen Saturation [94-100 %] 98 % (11/13/21 10:22 AM) Pulse Rate [55-90 bpm] 107 bpm *H* (11/13/21 10:22 AM) Body Mass Index [18.5-24.99] 22.89 (11/13/21 10:22 AM) Blood Pressure [90-138/55-84 mm Hg] 150/ 92mm Hg *H* (11/13/21 10:34 AM) 156/90mm Hg *H* (11/13/21 10:22 AM) Respiratory Rate [16-30 br/min] 18 br/mi n (11/13/21 10:22 AM) Blood pressure sites Arm, left (11/13/21 10:34 AM) Arm, right (11/13/21 10:22 AM) Weight Obtained Via Standing scale (11/13/21 10:22 AM) Social History Social History Type Response Smoking Status Never (less than 100 in lifetime) entered on: 05/30/19 Sex
--- OUTSIDE RECORDS SUMMARY | 2023-05-02 12:11 | XMS_ITS | Continuity of Care Document ---
Author Name Unknown Organization [facility] Address [address] [place] [address]- Care Team Providers Care Tripe Washer Name Role Phone Rahat GERBER, Gaye Macias Primary Care Physician ( [phone] Encounter [facility] Date(s): 11/29/21 - 12/29/21 [facility] [address] [place] [address]- Allergies, Adverse Reactions, Alerts Substance Reaction Severity [...] rash Active Cats Active Contrast Dye Active [place] Active Dogs Active Dust Active Horses Active [...] Name: Rahat GERBER, Gaye Macias Address: [address] [place] [address]-
--- OUTSIDE RECORDS SUMMARY | 2023-05-02 12:11 | XMS_ITS | Continuity of Care Document ---
Author Name Unknown Organization [facility] ter Address [address] [place] [address]- Care Team Providers Care Hardwood Floor Finisher Name Role Phone Yolanda Fischer MD Primary Care Physician Encounter [facility] Date(s): 06/23/19 - 12/08/[address] [address]- [facility] Attending Physician: Jessica Chaparro MD Admitting Physician: Krysta GERBER, Jessica Allergies, Adverse Reactions, Alerts Substance Reaction Severity Status atenolol Active codeine Active ibuprofen Active tetracycline Active erythromycin Active penicillin Active sulfADIAZINE All sulfa drugs Active metoprolol Active aspirin Active caffeine Active shellfish Active Benadryl, Topical Active Keflex Active Cleocin T Active Fosamax Active Cefzil Active Tums Active Levaquin Active Tylenol Active Bactrim Active Biaxin XL Active Cats Active Contrast Dye Active [place] Active Dogs Active Dust Active Horses Active Latex rash Active Mold Active Nuts Active Pork Active Soy Products Active fentaNYL Active Adhesive Bandage rash Active Immunizations Given and Recorded Vaccine Date [...] stasis(Confirmed) Active 1Dr Melo rheum 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 if positive for ca will need colon resection Social History Social History Type Response Smoking Status Never (less than 100 in lifetime) entered on: 05/30/19 Sex Female
--- OUTSIDE RECORDS SUMMARY | 2023-05-02 12:11 | XMS_ITS | Continuity of Care Document ---
Author Name Unknown Organization [facility] Address [address] [place] [address]- Care Team Providers Care Crop Picker Name Role Phone Rahat GERBER, Gaye Macias Primary Care Physician [facility] Date(s): 08/30/21 - 09/29/21 [facility] [address] [place] [address]- [place] Allergies, Adverse Reactions, Alerts Substance Reaction [...] rash Active Cats Active Contrast Dye Active [place] Active Dogs Active Dust Active Horses Active [...]
--- OUTSIDE RECORDS SUMMARY | 2023-05-02 12:11 | XMS_ITS | Continuity of Care Document ---
Author Name Unknown Organization [facility] Address [address] [place] [address]- Care Team Providers Care Hide House Supervisor Name Role Phone Rahat GERBER, Gaye Macias Primary Care Physician ( [phone] En[place] [facility] Date(s): 05/29/22 - 06/28/22 [facility] [address] [place] [address]- Encounter Diagnosis Reactive arthritis(Discharge Diagnosis) - 03/20/21 [...] rash Active Cats Active Contrast Dye Active [place] Active Dogs Active Dust Active Horses Active [...] Comment: wrong chart 2Admin Note: vis given 11-18-2008 Medications Cane See Instructions, # 1 each, [...] Status: Ordered lisinopril 5 mg oral tablet See Instructions, TAKE 1 TABLET BY MOUTH DAILY NEW. START 01/22/22, # 30 tablet, Refills 1, Tot. Refills 1, Maintenance, 06/24/22 18:25:00 EST, Instructions Replace Required Details, Route to PharmacyElectronically, [facility] #[id number], 150, c... Start Date: 06/24/22 Status: Ordered lisinopril 5 mg oral tablet 5 mg, 1, tablet, By Mouth, Daily, new start 01/22/22, # 30 tablet, Refills 2, Tot. Refills 2, Maintenance, 01/22/22 15:19:00 EDT, Route to Pharmacy Electronically, [facility] #[id number], Partialfill upon patient request if the prescription is fo... Start Date: 01/22/22 Stop Date: 04/22/22 Status: Ordered metroNIDAZOLE 500 mg oral tablet 1 tablet = 500 mg, By Mouth, 3 times a day, # 15 tablet, 0 Refills, Maintenance, 02/27/22 16:27:00 EDT, Tablet, [facility] #[id number], Partial fill upon patient request if the [...] 05/30/19 Sex EKG study * Event Display: EKG Authored Date: Note * Event Display: Non BH Lab Results Authored Date: * Event Display: Non BH Lab Results Authored Date: * Event Display: Non BH Lab Results Authored Date: * Event Display: Ultrasound Lower Extremity, Non-BH Authored Date: * Event Display: X-Ray Knee, Non- BH Authored Date: * Event Display: MRI Head, Non- BH Authored Date: * Event Display: MRI Spine, Non- BH Authored Date: * Chelsea Pro MD: REVIEW Event Display: Radiology Result Scanned Authored Date: * Event Display: Radiology Result Scanned Authored Date: * Event Display: Radiology Result Scanned Authored Date: * Monet Rodriguez: PERFORM Event Display: Cardiovascular Results Scanned Authored Date: [id number] Cardiology Outpatient Note * Marjorie Adorno: PERFORM Event Display: Cardiology Note Office Authored Date: * Monet Rodriguez: PERFORM Event Display: Cardiology Note Office Authored Date: * Marjorie Adorno: PERFORM Event Display: Cardiology Note Office Authored Date: CT Abdomen * Event Display: CT Scan Abdomen Authored Date: Patient Care team information Care Team Personnel Name: Yin Hsu Position: [facility] Onco RN Member Role: Primary Care Nurse Name: Gaye Giang MD Position: [facility] Primary Care Physician Member Role: PCP Address: Address: [address] [place] [address] Name: Consuelo Louis RN Position: [facility] RN Member Role: Primary Care Nurse Name: Cherry Olsen MD Position: [facility] DOUBLE END TRIMMER MD Member Role: Lifetime DOUBLE END TRIMMER Physician Address: Address: [address] [place] [address]'s [facility] [employer] [place] [address]- Name: Maeve Jones RN Position: [facility] RN Member Role: Primary Care Nurse Care Team Related Persons Name: MEG MARTIN Address: home [address] [place] [address] Name: JAKE RODRIGUES Address: [place], [place]
--- OUTSIDE RECORDS SUMMARY | 2023-05-02 12:12 | XMS_ITS | Continuity of Care Document ---
Author Name Unknown Organization [facility] Address [address] [place] [address]- Care Team Providers Care Picking Tech Name Role Phone Lawrence GERBER, Ruma Bauer Primary Care Physician [place] [facility] [place](s[place] 01/26/23 - 04/05/23 [facility] [address] [place] [address]- Discharge Disposition: A-D/C Home Attending Physician: Aleks Barger MD Admitting Physician: Aleks Barger MD Referring Physician: Gaye Giang MD Allergies, Adverse [...] rash Active Cats Active Contrast Dye Active [place] Active Dogs Active Dust Active Horses Active [...] tablet, 1 Refills, Maintenance, 01/19/23 10:23:00 EDT, [id number], Partial fill upon patient request if the [...] Gm, 0 Refills, Maintenance, 12/17/22 11:48:00 EDT, [facility][id number], Partial fill upon patient request if the prescription is for a schedule II opioid drug., 152, cm,... Start Date: 12/17/22 Status: Ordered diclofenac 1% topical gel 1 application, Topically, 4 times a day, # 100 Gm, 0 Refills, Maintenance, 12/25/22 11:12:00 EDT, [facility] #[id number], Partial fill upon patient request if the prescription is for a schedule II opioid drug., 152, cm, 12/25/22 10:26:00 EDT... Start Date: 12/25/22 Status: Ordered diphenhydrAMINE 50 mg oral tablet 1 tablet = 50 mg, By Mouth, Once, [address] scan, # 1 tablet, 2 Refills, Soft Stop, 10/15/22 14:04:00 EDT, [facility] #[id number], Partial fill upon patient request if the [...] 11/03/22 16:12:00 EDT, Route to Pharmacy Electronically, [facility][id number], Partial fill upon patient request if the [...] 3 Refills, Maintenance, 03/24/23 9:43:00 EST, Tablet, [facility] #[id number],... Start Date: 03/24/23 Status: Ordered lisinopril 5 mg oral tablet 5 mg, 1, tablet, By Mouth, Daily, # 90 tablet, Refills 1, Tot. Refills 1, Maintenance, 09/02/22 9:47:00 EDT, Route to Pharmacy Electronically, [facility] #[id number], 150, cm, 08/27/22 14:11:00 EDT, Height, 45.9, [...] oldest [Reference Range]: 1 Height 152 cm (02/03/23 9:17 AM) Weight 46.6 kg (02/03/23 9:17 AM) Oxygen Saturation [94-100 %] 98 % (02/03/23 9:17 AM) Pulse Rate [55-90 bpm] 101 bpm *H* (02/03/23 9:17 AM) Body Mass Index [18.5-24.99 kg/m2] 20.17 kg/m2 (02/03/23 9:17 AM) Blood Pressure [90-138/55-84 mm Hg] 162/ 70mm Hg *H* (02/03/23 9:17 AM) Temperature [96.8-100.4 DegF] 98.4 DegF (02/03/23 9:17 AM) Mode of Delivery (Oxygen) Room air (02/03/23 9:17 AM) Blood pressure sites Arm, right (02/03/23 9:17 AM) Temperature Route Oral (02/03/23 9:17 AM) Dry Weight 46.6 kg (02/03/23 9:17 AM) Weight Obtained Via Standing scale (02/03/23 9:17 AM) Dry Weight Obtained Via Standing scale (02/03/23 9:17 AM) Social History Social History Type Response Smoking Status Never (less than 100 in lifetime) entered on: 05/30/19 Sex Note * Margaret Austin [place]: PERFORM, SIGN, VERIFY Event Display: Patient Education/Instruction Authored Date: [id number] [facility] *Heme/Onc Adult Clinical Summary Name NAUN MARTIN Age 78 Years 1945 PCP Ruma Bravo MD PCP [facility]# [id number] Visit Date 01/26/2023 16:20:00 Additional Instructions: Scheduled Appointments?? Future Appointments ?*[facility]Off ?[address],??[place],??[address] ?Phone:??--?Fax:??-- ?Appt. Date:??02/17/2023?10:30 AM ?Scheduled Provider:??Darnell Malik ?*[facility] ?[address],??[place],??[address] ?Phone:??--?Fax:??-- ?Appt. Date:??02/27/2023?8:00 AM ?Scheduled Provider:??Ruma Bravo MD ?*[facility] ?Phone:??--?Fax:??-- ?Appt. Date:??03/24/2023?9:30 AM ?Scheduled Provider:??Francisca GERBER, Laury Jane Follow-Up Instructions ?? With: Address: When: Aleks Barger [address] [facility] [place] [address] Business (1) 02/05/2024 9:00 AM Diagnosis Medications: Please continue your medications until [...] Allergy; Nuts; Mold; Latex; Horses; Dust; Dogs; [place]; Contrast Dye; Cats; Adhesive Bandage; Biaxin XL; Bactrim; Tylenol; Levaquin; Augmentin; Tums; Cefzil; Fosamax; Cleocin T; Keflex; Benadryl, Topical; shellfish; sulfa drugs; caffeine; predniSONE;aspirin; metoprolol; sulfADIAZINE; penicillin; amoxicillin; erythromycin; clindamycin; tetracycline; doxycycline; ibuprofen; codeine; atenolol Medications Given This Visit Future Orders ?No future orders Vital Signs Height 152 cm Weight 46.6 kg BMI 20.17 kg/m2 Blood Pressure 162 mm Hg/70 mm Hg Temperature 98.4 DegF Pulse Rate 101 bpm Respiratory Rate 02 Sat Mode of Delivery 98 %/Room air You can now view a summary of your hospital visit from the comfort of your home through a free online portal called [employer]. [employer] is a website that allows you to securely view your medical information including discharge summary, medications and follow-up visits. ??You can alsosend a secure electronic message to your doctor???s office to request appointments, renew medications or just ask a question. You can enroll at [email or web address] or register during your next office visit. [...] primary care provider, you may find a [facility] provider by calling [facility] Link at [phone]. [facility], in keeping with [facility] guidance, no longer requires face masks for [...] Care Team Personnel Name: Yin Hsu Position: [facility] Onco RN Member Role: Primary Care Nurse Name: Ruma Bravo MD Position: [facility] Physician - Primary Care Member Role: PCP Address: Address: [address] [place] [address] Family Medicine - [address] Name: Shikha Rivera RN Position: [facility] RN Member Role: Primary Care Nurse Name: Consuelo Louis RN Position: [facility] RN Member Role: Primary Care Nurse Name: Cherry Olsen MD Position: [facility] BILINGUAL SOCIAL WORKER MD Member Role: Lifetime BILINGUAL SOCIAL WORKER Physician Address: Address: [address] [place] [address] [facility] - [address] Name: Robert GALLAGHER, Maeve Bauer Position: [facility] RN Member Role: Primary Care Nurse Name: Aleks Barger MD Position: [facility] Physician - Oncology Med Service: Hematology & Oncology Member Role: Admitting Physician Address: Address: [address] [place] [address] [place] [address]- Care Team Related Persons Name: MEG MARTIN Address: [address] [address] Name: JAKE RODRIGUES Address: [place] [address]
--- OUTSIDE RECORDS SUMMARY | 2023-05-02 12:12 | XMS_ITS | Continuity of Care Document ---
Author Name Unknown Organization [facility] ter Address [address] [place] [address]- Care Team Providers Care Senior Ui Software Engineer Name Role Phone Rahat GERBER, Gaye Macias Primary Care Physician En[place] [facility] Date(s): 07/22/21 - 09/07/[address] [address]- Attending Physician: Raz GERBER, Rachell Allergies, Adverse Reactions, Alerts Substance Reaction Severity Status atenolol Active codeine Active penicillin Active ibuprofen Active aspirin Active doxycycline 1 Moderate Active tetracycline Active clindamycin Active erythromycin Active shellfish Active sulfADIAZINE All [...] Active Adhesive Bandage rash Active Cats Active [place] Active Contrast Dye Active Dogs Active Dust [...] each, 2 Refills, Maintenance, 12/25/20 10:09:00 EDT, [facility] #[id number], Partial fill upon patient request if the [...]
--- OUTSIDE RECORDS SUMMARY | 2023-05-02 12:12 | XMS_ITS | Continuity of Care Document ---
Author Name Unknown Organization [facility] Medicine Address [address] [place] [address]- Care Team Providers Care Stone Mill Operator Name Role Phone Rahat GERBER, Gaye Macias Primary Care Physician [place] [facility] [place] 08[place]/22 [facility] Medicine [address] [place] [address]- Allergies, Adverse Reactions, Alerts Substance Reaction Severity Status atenolol Active codeine Active tetracycline Active clindamycin Active penicillin Active caffeine Active ibuprofen Active aspirin Active doxycycline 1 Moderate Active erythromycin Active amoxicillin Active sulfADIAZINE All sulfa drugs Active metoprolol Active predniSONE Allergy to sulfa drugs Activ e sulfa drugs Active shellfish Active Benadryl, Topical 2 Active Keflex Active Cefzil Active Tums Active Levaquin Active Tylenol Active Cats Active Contrast Dye Active [place] Active Horses Active Mold Active Nuts Active Cleocin T Active Fosamax Active Augmentin Active Bactrim Active Biaxin XL Active Adhesive Bandage rash Active Dogs Active Dust Active Latex rash [...] opioid drug. Start Date: 05/29/22 Status: Ordered lisinopril 5 mg oral tablet See Instructions, TAKE 1 TABLET BY MOUTH DAILY NEW. START 01/22/22, # 30 tablet, Refills 1, Tot. Refills 1, Maintenance, 06/24/22 18:25:00 EST, Instructions Replace Required Details, Route to PharmacyElectronically, [facility][id number], 150, c... Start Date: 06/24/22 Status: Ordered lisinopril 5 mg oral tablet 5 mg, 1, tablet, By Mouth, Daily, new start 01/22/22, # 30 tablet, Refills 2, Tot. Refills 2, Maintenance, 01/22/22 15:19:00 EDT, Route to Pharmacy Electronically, [facility][id number], Partialfill upon patient request if the prescription [...] Fibromyalgia 1 Confirmed Active Hemorrhoids Confirmed Active Hypothyroid Confirmed Active LBBB - [...] positive for ca will need colon resection 4LaApril 2020 5Pt. had 2nd Pfizer vaccine on 09/19 and pain in her L hand on 10/07. Social History Social History Type Response Smoking Status Never (less than 100 in lifetime) entered on: 05/30/19 Sex Patient Care team information Care Team Personnel Name: Yin Hsu Position: [facility] Onco RN Member Role: Primary Care Nurse Name: Rahat GERBER, Gaye Macias Position: [facility] Primary Care Physician Member Role: PCP Address: Address: [address] [place] [address] Family Medicine [address] Name: Consuelo Louis RN Position: [facility] RN Member Role: Primary Care Nurse Name: Cherry Olsen MD Position: [facility] DESK PEN SET ASSEMBLER MD Member Role: Lifetime DESK PEN SET ASSEMBLER Physician Address: Address: [address] [place] [address] Women[facility] Service Car Operator - [address] Name: Maeve Jones RN Position: [facility] RN Member Role: Primary Care Nurse Care Team Related Persons Name: MEG MARTIN Address: home [address] [place] [address] Name: JAKE RODRIGUES Address: [place] [address]
--- OUTSIDE RECORDS SUMMARY | 2023-05-02 12:12 | XMS_ITS | Continuity of Care Document ---
Author Name Unknown Organization [facility] Address [address] [address]- Care Team Providers Care Diesel Technician Mechanic Name Role Phone Patti HARDEN, Shandra Lance Primary Care Physician [phone] Encounter [facility] [place] [place] [id number] Date(s): 05/24/21 - 05/31/21 [facility] [address] [address]- Attending Physician: Savanah Charlton Admitting Physician: Savanah Charlton Referring Physician: Savanah Charlton Allergies, Adverse Reactions, Alerts Substance Reaction Severity Status atenolol Active codeine Active clindamycin Active penicillin Active Benadryl, Topical 1 Active ibuprofen Active aspirin Active doxycycline 2 Moderate Active tetracycline Active erythromycin Active shellfish Active sulfADIAZINE All sulfa drugs Active vancomycin 3 rash Persistent Mild Active metoprolol Active caffeine Active Keflex Active Fosamax Active Cleocin T Active Cefzil Active Tums Active Levaquin Active Tylenol Active Contrast Dye Active Horses Active Mold Active Nuts Active Soy Products Active fentaNYL Active Latex rash Active Bactrim Active Biaxin XL Active Adhesive Bandage rash Active Cats Active [place] Active Dogs Active Dust Active Pork Active 1Pt States she tolerates Benadryl by mouth fine 11/06/20 2Rash 3rash Immunizations Given and Recorded Vaccine Date Status Refusal Reason SARS-CoV-2 (COVID-19) mRNA BNT-162b2 vac 08/29/20 Recorded tetanus-diphtheria toxoids (Td) 1 07/06/19 Given tetanus/diphtheria/pertussis, acel(Tdap) 2 01/25/10 Given 1Result Comment: wrong chart 2Admin Note: vis given 03-21-2008 Medications ibandronate 150 mg oral tablet 1 tablet = 150 mg, By Mouth, Every 28 days, # 3 each, 2 Refills, Maintenance, 12/25/20 10:09:00 EDT, [facility][id number], Partial fill upon patient request if the [...] stasis(Confirmed) Active 1Dr Melo rheum 2Dr Soco radio performer multiple food and drug allergies 3[facility] 4colonoscopy 06/21/2019 removed 4 polyps. if positive for ca will need colon resection 5Late April 2020 6Pt. had 2nd Pfizer vaccine on 09/19 and pain in her L hand on 10/07. Social History Social History Type Response Smoking Status Never (less than 100 in lifetime) entered on: 05/30/19 Sex
--- OUTSIDE RECORDS SUMMARY | 2023-05-02 12:12 | XMS_ITS | Continuity of Care Document ---
Author Name Unknown Organization [facility] Address [address] [place] [address]- Care Team Providers Care Education Consultant Name Role Phone Yolanda Fischer MD Primary Care Physician [place] [facility] [place] - 12/11/19 [facility] [address] [place] [address]- [facility] Allergies, Adverse Reactions, Alerts Substance Reaction Severity Status atenolol Active codeine Active ibuprofen Active tetracycline Active erythromycin Active penicillin Active sulfADIAZINE All sulfa drugs Active metoprolol Active aspirin Active caffeine Active shellfish Active Benadryl, Topical Active Keflex Active Cleocin T Active Fosamax Active Cefzil Active Tums Active Levaquin Active Tylenol Active Bactrim Active Cats Active Contrast Dye Active [place] Active Dogs Active Dust Active Horses Active Mold Active Nuts Active Pork Active Soy Products Active fentaNYL Active Latex rash Active Biaxin XL Active Adhesive Bandage rash Active Immunizations Given [...] stasis(Confirmed) Active 1Dr Melo rheum 2Dr Soco engineer third assistant multiple food and drug allergies 3[facility] 4colonoscopy 06/21/2019 removed 4 polyps. if positive for ca will need colon resection Social History Social History Type Response Smoking Status Never (less than 100 in lifetime) entered on: 05/30/19 Sex Female
--- OUTSIDE RECORDS SUMMARY | 2023-05-02 12:12 | XMS_ITS | Continuity of Care Document ---
Author Name Unknown Organization [facility] ter Address [address] [place] [address]- Care Team Providers Care Brick Burner Name Role Phone Yolanda Fischer MD Primary Care Physician [place] [facility] [place] - 06/21/[address] [address]- [facility] Discharge Disposition: A-D/C Home Attending Physician: Jessica Chaparro MD Admitting Physician: Jessica Chaparro MD Referring Physician: Jessica Chaparro MD Allergies, Adverse Reactions, [...] Active Adhesive Bandage rash Active Cats Active [place] Active Dogs Active Dust Active Horses Active [...] Refills, Maintenance, 06/03/19 10:30:00 EST, REC Powder, [facility][id number], 240 mL By Mouth Every 15 minutes, [...] bleeding(Confirmed) Active 1Dr Melo rheum 2Dr Soco locker room attendant multiple food and drug allergies 3[facility] Procedures Procedure Date Related Diagnosis Body Site Status Colonoscopy 06/21/19 Completed Vital Signs Most recent to oldest [Reference Range]: 1 2 3 Height 149.9 cm (06/21/19 10:45 AM) Weight 48.5 kg (06/21/19 10:45 AM) Oxygen Saturation [94-100 %] 100 % (06/21/19 12:35 PM) 100 % (06/21/19 12:25 PM) 100 % (06/21/19 10:45 AM) Pulse Rate [55-90 bpm] 110 bpm *H* (06/21/19 10:45 AM) Body Mass Index [18.5-24.99] 21.58 (06/21/19 10:45 AM) Blood Pressure [90-138/55-84 mm Hg] 130/71mm Hg (06/21/19 12:35 PM) 114/59mm Hg (06/21/19 12:25 PM) 141/73mm Hg *H* (06/21/19 10:45 AM) Respiratory Rate [16-30 br/min] 18 br/min (06/21/19 12:35 PM) 18 br/min (06/21/19 12:25 PM) 20 br/min (06/21/19 10:45 AM) Temperature [96.8-100.4 DegF] 98.1 DegF (06/21/19 10:45 AM) Mode of Delivery (Oxygen) Room air (06/21/19 12:35 PM) Room air (06/21/19 12:25 PM) Room air (06/21/19 10:45 AM) Blood pressure sites Arm, left (06/21/19 12:35 PM) Arm, left (06/21/19 12:25 PM) Arm, right (06/21/19 10:45 AM) Temperature Route Temporal (06/21/19 10:45 AM) Weight Obtained Via Patient/family state d (06/21/19 10:45 AM) Social History Social History Type Response Smoking Status Never (less than 100 in lifetime) entered on: 05/30/19 Sex
--- OUTSIDE RECORDS SUMMARY | 2023-05-02 12:12 | XMS_ITS | Continuity of Care Document ---
Author Name Unknown Organization [facility] Address [address] [place] [address]- Care Team Providers Care Bomb Squad Officer Name Role Phone Yolanda Fischer MD Primary Care Physician En[facility] Date(s): 10/31/19 - 11/30/19 [facility] [address] [place] [address]- [facility] Attending Physician: Logan Wilson8 Admitting Physician: Admtr, Ar8 Referring Physician: Admtr, Ar8 Allergies, Adverse Reactions, Alerts Substance Reaction Severity Status atenolol Active codeine Active ibuprofen Active tetracycline Active penicillin Active sulfADIAZINE All sulfa drugs Active metoprolol Active aspirin Active caffeine Active Benadryl, Topical Active Keflex Active Cleocin T Active Fosamax Active Cefzil Active erythromycin Active shellfish Active Tums Active Levaquin Active Tylenol Active Bactrim Active Biaxin XL Active Adhesive Bandage rash Active Contrast Dye Active Horses Active Latex rash Active Mold Active Nuts Active Pork Active Soy Products Active fentaNYL Active Dust Active Cats Active [place] Active Dogs Active Immunizations Given and Recorded [...] stasis(Confirmed) Active 1Dr Melo rheum 2Dr Soco resident care manager rn multiple food and drug allergies 3[facility] 4colonoscopy 06/21/2019 removed 4 polyps. if positive for ca will need colon resection Social History Social History Type Response Smoking Status Never (less than 100 in lifetime) entered on: 05/30/19 Sex Female
--- OUTSIDE RECORDS SUMMARY | 2023-05-02 12:12 | XMS_ITS | Continuity of Care Document ---
Author Name Unknown Organization [facility] Address [address] [place] [address]- Care Team Providers Care Offshore Wind Turbine Technician Name Role Phone Yolanda Fischer MD Primary Care Physician En[place] [facility] [place] Date(s): 08/30/20 - 11/03/20 [facility] [address] [place] [address]- Attending Physician: Yolanda Fischer MD Allergies, Adverse [...] rash Active Cats Active Contrast Dye Active [place] Active Dogs Active Dust Active Horses Active Latex rash Active Mold Active Nuts Active Pork Active Soy Products Active fentaNYL Active 1Rash Immunizations Given and Recorded Vaccine Date Status Refusal Reason tetanus-diphtheria toxoids (Td) 1 07/06/19 Given tetanus/diphtheria/pertussis, acel(Tdap) 2 01/25/10 Given 1Result Comment: wrong chart 2Admin Note: vis given 03-21-2008 Medications Compression Stockings See Instructions, # 2 pair, Refills 2, Tot. Refills 2, Maintenance, surgical, calf length 20-30 mm Hg Dx: venous insufficiency, 10/19/15 16:10:32, Compound Start Date: 10/19/15 Status: Ordered linezolid 600 mg oral tablet 1 tablet = 600 mg, By Mouth, Every 12 hours, for 10 days, # 20 tablet, 0 Refills, Acute 11/10/20 8:40:00 EDT, 10/31/20 8:40:00 EDT, Tablet, [facility][id number], Partial fill upon patient request if the prescription is for a schedule II opioid... Start Date: 10/31/20 Stop Date: 11/10/20 Status: Ordered Problem List Condition Effective Dates [...] stasis(Confirmed) Active 1Dr Melo rheum 2Dr Soco shingle inspector multiple food and drug allergies 3[facility] 4colonoscopy 06/21/2019 removed 4 polyps. if positive for ca will need colon resection Social History Social History Type Response Smoking Status Never (less than 100 in lifetime) entered on: 05/30/19 Sex
--- OUTSIDE RECORDS SUMMARY | 2023-05-02 12:12 | XMS_ITS | Continuity of Care Document ---
Author Name Unknown Organization [facility] Address [address] [address]- Care Team Providers Care Drop Machine Operator Name Role Phone Yolanda Fischer MD Primary Care Physician Encounter [facility] [place] Date(s): 02/05/21 - 03/07/21 [facility] [address] [address] [place] Allergies, Adverse Reactions, Alerts Substance Reaction [...] rash Active Cats Active Contrast Dye Active [place] Active Dogs Active Dust Active Horses Active [...] each, 2 Refills, Maintenance, 12/25/20 10:09:00 EDT, [facility] #[id number], Partial fill upon patient request if the [...] kit, 0 Refills, Maintenance, 01/14/21 12:14:00 EDT, [id number], Partial fill upon patient request if the [...] stasis(Confirmed) Active 1Dr Melo rheum 2Dr Soco pillowcase cutter multiple food and drug allergies 3[facility] 4colonoscopy 06/21/2019 removed 4 polyps. if positive for ca will need colon resection 5Late April 2020 6Pt. had 2nd Pfizer vaccine on 09/19 and pain in her L hand on 10/07. Social History Social History Type Response Smoking Status Never (less than 100 in lifetime) entered on: 05/30/19 Sex
--- OUTSIDE RECORDS SUMMARY | 2023-05-02 12:12 | XMS_ITS | Continuity of Care Document ---
Author Name Unknown Organization [facility] Address [address] [place] [address]- Care Team Providers Care Plastics Repairer Name Role Phone Yolanda Fischer MD Primary Care Physician [place] [facility] [place] 05/15/20 - 05/22/20 [facility] [address] [place] [address]- Encounter Diagnosis COVID-19 virus infection(Discharge Diagnosis) - 05/15/20 Attending Physician: Chuck TEST EVALUATOR, Crystal Allergies, Adverse Reactions, Alerts Substance Reaction Severity Status atenolol Active codeine Active ibuprofen Active erythromycin Active penicillin Active sulfADIAZINE All sulfa drugs Active metoprolol Active aspirin Active caffeine Active Benadryl, Topical Active Keflex Active Cleocin T Active Fosamax Active Cefzil Active Tums Active tetracycline Active shellfish Active Levaquin Active Tylenol Active Bactrim Active Biaxin XL Active Adhesive Bandage rash Active Cats Active Contrast Dye Active [place] Active Dogs Active Dust Active Horses Active [...] 3 capsule, 1 Refills, Maintenance, 04/17/20 10:01:00 [id number], [place]... Start Date: 04/17/20 Status: Ordered Multivitamins [...] stasis(Confirmed) Active 1Dr Melo rheum 2Dr Soco pipe fitter street service multiple food and drug allergies 3[facility] 4colonoscopy 06/21/2019 removed 4 polyps. if positive for ca will need colon resection Diagnosis Diagnosis Type Effective Dates Health Status Cl inical Service Informant COVID-19 virus infection Discharge Diagnosis 05/15/20 Social History Social History Type Response Smoking Status Never (less than 100 in lifetime) entered on: 05/30/19 Sex Female
--- OUTSIDE RECORDS SUMMARY | 2023-05-02 12:12 | XMS_ITS | Continuity of Care Document ---
Author Name Unknown Organization [facility] Address [address] [place] [address]- Care Team Providers Care Antique Jewelry Repairer Name Role Phone Rahat GERBER, Gaye Macias Primary Care Physician [place] [facility] [place]19[place] - 12/19/21 [facility] [address] [place] [address]- Allergies, Adverse Reactions, Alerts Substance Reaction Severity [...] rash Active Cats Active Contrast Dye Active [place] Active Dogs Active Dust Active Horses Active [...]
--- OUTSIDE RECORDS SUMMARY | 2023-05-02 12:12 | XMS_ITS | Continuity of Care Document ---
Author Name Unknown Organization [facility] Address [address] [place] [address]- Care Team Providers Care Investigator Name Role Phone Rahat GERBER, Gaye Macias Primary Care Physician [place] [facility]21 - 09/12/21 [facility] [address] [place] [address]- Encounter Diagnosis LBBB - Left bundle branch block(Discharge Diagnosis) - 09/05/21 Mass of colon(Discharge Diagnosis) - 09/05/21 Elevated blood pressure reading without diagnosis of hypertension(Discharge Diagnosis) - 09/05/21 Multiple drug allergies-- followed by Dr Calderon as of 2021(Discharge Diagnosis) - 09/05/21 Attending Physician: Rahat GERBER, Gaye Macias Allergies, Adverse Reactions, Alerts Substance Reaction Severity Status atenolol Active codeine Active doxycycline 1 Moderate Active penicillin Active ibuprofen Active aspirin Active tetracycline Active clindamycin Active erythromycin Active [...] Active Adhesive Bandage rash Active Cats Active [place] Active Contrast Dye Active Dogs Active Dust Active Pork Active 1Rash 2rash 3Pt States she tolerates Benadryl by mouth fine 11/06/20 Immunizations Given and Recorded Vaccine Date Status Refusal Reason SARS-CoV-2 (COVID-19) mRNA BNT-162b2 vac 08/29/20 Recorded tetanus-diphtheria toxoids (Td) 1 07/06/19 Given tetanus/diphtheria/pertussis, acel(Tdap) 2 9/24/10 Given 1Result Comment: wrong chart 2Admin Note: vis given 03-21-2008 Medications ibandronate 150 mg oral tablet 1 tablet = 150 mg, By Mouth, Every 28 days, # 3 each, 2 Refills, Maintenance, 12/25/20 10:09:00 EDT, [facility] #[id number], Partial fill upon patient request if the [...] Effective Dates Health Status Clinical Service Informant LBBB - Left bundle branch block Discharge Diagnosis 09/05/21 Mass of colon Discharge Diagnosis 09/05/21 Elevated blood pressure reading without diagnosis of hypertension Discharge Diagnosis 09/05/21 Multiple drug allergies-- followed by Dr Calderon as of 2021 1 Discharge Diagnosis 09/05/21 Non-Specified 15/09/2021 10:49 EDT - Rahat GERBER, Gaye Macias - followed by Dr Calderon as 2021 Vital Signs Most recent to oldest [Reference Range]: 1 Height 150 cm (09/05/21 9:30 AM) Weight 53 kg (09/05/21 9:30 AM) Oxygen Saturation [94-100 %] 99 % (09/05/21 9:30 AM) Pulse Rate [55-90 bpm] 89 bpm (09/05/21 9:30 AM) Body Mass Index [18.5-24.99] 23.56 (09/05/21 9:30 AM) Blood Pressure [90-138/55-84 mm Hg] 140/ 83mm Hg *H* (09/05/21 9:30 AM) Blood pressure sites Arm, left (09/05/21 9:30 AM) Social History Social History Type Response Smoking Status Never (less than 100 in lifetime) entered on: 05/30/19 Sex
--- OUTSIDE RECORDS SUMMARY | 2023-05-02 12:12 | XMS_ITS | Continuity of Care Document ---
Author Name Unknown Organization [facility] Address [address] [place] [address]- Care Team Providers Care Soaker Name Role Phone Yolanda Fischer MD Primary Care Physician Encounter [place] Date(s): 05/31/20 - 06/30/20 [facility] [address] [place] [address] Allergies, Adverse Reactions, Alerts Substance Reaction Severity [...] rash Active Cats Active Contrast Dye Active [place] Active Dogs Active Dust Active Horses Active [...] capsule, 1 Refills, Maintenance, 04/17/20 10:01:00 EST, [facility] #[id number], [place]... Start Date: 04/17/20 Status: Ordered Multivitamins [...] stasis(Confirmed) Active 1Dr Melo rheum 2Dr Soco head turning machine operator multiple food and drug allergies 3[facility] 4colonoscopy 06/21/2019 removed 4 polyps. if positive for ca will need colon resection Social History Social History Type Response Smoking Status Never (less than 100 in lifetime) entered on: 05/30/19 Sex Female
--- OUTSIDE RECORDS SUMMARY | 2023-05-02 12:12 | XMS_ITS | Continuity of Care Document ---
Author Name Unknown Organization [facility] ter Address [address] [place] [address]- Care Team Providers Care Tool Tender Name Role Phone Yolanda Fischer MD Primary Care Physician En[facility] [place] Date(s): 06/02/19 - 06/02/[address] [address]- [facility] Attending Physician: Yolanda Fischer MD Allergies, Adverse [...] Active Adhesive Bandage rash Active Cats Active [place] Active Dogs Active Dust Active Horses Active [...] bleeding(Confirmed) Active 1Dr Melo rheum 2Dr Soco manager forms multiple food and drug allergies 3[facility] Social History Social History Type Response Smoking Status Never (less than 100 in lifetime) entered on: 05/30/19 Sex
--- OUTSIDE RECORDS SUMMARY | 2023-05-02 12:12 | XMS_ITS | Continuity of Care Document ---
Author Name Unknown Organization [facility] Address [address] [place] [address]- Care Team Providers Care Toll Line Mechanic Name Role Phone Yolanda Fischer MD Primary Care Physician En[facility] Date(s): 03/05/20 - 03/12/20 [facility] [address] [place] [address]- Encounter Diagnosis Neck pain(Discharge Diagnosis) - 03/05/20 Pain, dental(Discharge Diagnosis) - 03/05/20 Attending Physician: Yolanda Fischer MD Allergies, Adverse [...] rash Active Cats Active Contrast Dye Active [place] Active Dogs Active Dust Active Horses Active [...] stasis(Confirmed) Active 1Dr Melo rheum 2Dr Soco vp patient multiple food and drug allergies 3[facility] 4colonoscopy 06/21/2019 removed 4 polyps. if positive for ca will need colon resection Diagnosis Diagnosis Type Effective Dates Health Status Cl inical Service Informant Neck pain Discharge Diagnosis 03/05/20 Pain, dental Discharge Diagnosis 03/05/20 Vital Signs Most recent to oldest [Reference Range]: 1 2 Height 150.0 cm (03/05/20 10:50 AM) 150.0 cm (03/05/20 10:40 AM) Oxygen Saturation [94-100 %] 100 % (03/05/20 10:40 AM) Pulse Rate [55-90 bpm] 93 bpm *H* (03/05/20 10:40 AM) Blood Pressure [90-138/55-84 mm Hg] 150/ 84mm Hg *H* (03/05/20 10:50 AM) 148/85mm Hg *H* (03/05/20 10:40 AM) Mode of Delivery (Oxygen) Room air (03/05/20 10:40 AM) Blood pressure sites Arm, left (03/05/20 10:50 AM) Arm, left (03/05/20 10:40 AM) Weight Obtained Via Standing scale (03/05/20 10:40 AM) Social History Social History Type Response Smoking Status Never (less than 100 in lifetime) entered on: 05/30/19 Sex Female
--- OUTSIDE RECORDS SUMMARY | 2023-05-02 12:12 | XMS_ITS | Continuity of Care Document ---
Author Name Unknown Organization [facility] Address [address] [place] [address]- Care Team Providers Care Wet Milling Wheel Operator Name Role Phone Amado GERBER, Yolanda Lance Primary Care Physician En[place] [facility] [place] Date(s): 07/11/20 - 08/11/20 [facility] [address] [place] [address]- Attending Physician: Chuck BULK FOLDER, Crystal Allergies, Adverse Reactions, Alerts Substance Reaction [...] rash Active Cats Active Contrast Dye Active [place] Active Dogs Active Dust Active Horses Active [...] 3 capsule, 1 Refills, Maintenance, 04/17/20 10:01:00 [id number] [place]... Start Date: 04/17/20 Status: Ordered Multivitamins [...] stasis(Confirmed) Active 1Dr Melo rheum 2Dr Soco level vial grinder multiple food and drug allergies [facility] 4colonoscopy 06/21/2019 removed 4 polyps. if positive for ca will need colon resection Social History Social History Type Response Smoking Status Never (less than 100 in lifetime) entered on: 05/30/19 Sex Female
--- OUTSIDE RECORDS SUMMARY | 2023-05-02 12:12 | XMS_ITS | Continuity of Care Document ---
Author Name Unknown Organization [facility] Address [address] [place] [address]- Care Team Providers Care Assembler [employer] Spider Name Role Phone Rahat GERBER, Gaye Macias Primary Care Physician Encounter [facility] Date(s): 07/14/22 - 07/21/22 [facility] [address] [place] [address]- Encounter Diagnosis Foot pain(Discharge Diagnosis) - 07/14/22 Elevated blood pressure reading without diagnosis of hypertension(Discharge Diagnosis) - 07/14/22 Venous stasis(Discharge Diagnosis) - 07/14/22 Hemorrhoids(Discharge Diagnosis) - 07/14/22 Attending Physician: Rahat GERBER, Gaye Macias Allergies, [...] rash Active Cats Active Contrast Dye Active [place] Active Dogs Active Dust Active Horses Active [...] Instructions Replace Required Details, Route to Pharmacy[facility]ronically, [id number], 150, c... Start Date: 06/24/22 Status: Ordered lisinopril 5 mg oral tablet 5 mg, 1, tablet, By Mouth, Daily, new start 01/22/22, # 30 tablet, Refills 2, Tot. Refills 2, Maintenance, 01/22/22 15:19:00 EDT, Route to Pharmacy Electronically, [facility] #[id number], Partialfill upon patient request if the prescription [...] Effective Dates Health Status Clinical Service Informant Foot pain Discharge Diagnosis 07/14/22 Elevated blood pressure reading without diagnosis of hypertension Discharge Diagnosis 07/14/22 Venous stasis Discharge Diagnosis 07/14/22 Hemorrhoids Discharge Diagnosis 07/14/22 Vital Signs Most recent to oldest [Reference Range]: 1 Height 150 cm (07/14/22 10:52 AM) Weight 45.8 kg (07/14/22 10:52 AM) Oxygen Saturation [94-100 %] 97 % (07/14/22 10:52 AM) Pulse Rate [55-90 bpm] 95 bpm *H* (07/14/22 10:52 AM) Body Mass Index [18.5-24.99 kg/m2] 20.36 kg/m2 (07/14/22 10:52 AM) Blood Pressure [90-138/55-84 mm Hg] 147/ 81mm Hg *H* (07/14/22 10:52 AM) Social History Social History Type Response Smoking Status Never (less than 100 in lifetime) entered on: 05/30/19 Sex Patient Care team information Care Team Personnel Name: Yin Hsu Position: [facility] Onco RN Member Role: Primary Care Nurse Name: Gaye Giang MD Position: [facility] Primary Care Physician Member Role: PCP Address: Address: [address] [place] [id number] Name: Consuelo Louis RN Position: [facility] RN Member Role: Primary Care Nurse Name: Cherry Olsen MD Position: [facility] VARIETY LATHE OPERATOR MD Member Role: Lifetime VARIETY LATHE OPERATOR Physician Address: Address: [address] [place] [address] Women's Health [employer] [place] [address]- Name: Robert GALLAGHER, Maeve Bauer Position: S RN Member Role: Primary Care Nurse Care Team Related Persons Name: MEG MARTIN Address: [address] [address] Name: JAKE RODRIGUES Address: [place] [address]
--- OUTSIDE RECORDS SUMMARY | 2023-05-02 12:12 | XMS_ITS | Continuity of Care Document ---
Author Name Unknown Organization [facility] Address [address] [place] [address]- Care Team Providers Care Stablehand Name Role Phone Yolanda [place] MD Primary Care Physician Encounter [facility] Date(s): 11/21/19 - 12/21/19 [facility] [address] [place] [address] Allergies, Adverse Reactions, Alerts Substance Reaction [...] rash Active Cats Active Contrast Dye Active [place] Active Dogs Active Dust Active Horses Active [...] stasis(Confirmed) Active 1Dr Melo rheum 2Dr Soco aba therapist multiple food and drug allergies 3[facility] 4colonoscopy 06/21/2019 removed 4 polyps. if positive for ca will need colon resection Social History Social History Type Response Smoking Status Never (less than 100 in lifetime) entered on: 05/30/19 Sex Female
--- OUTSIDE RECORDS SUMMARY | 2023-05-02 12:12 | XMS_ITS | Continuity of Care Document ---
Author Name Unknown Organization [facility] Address [address] [address]- Care Team Providers Care Stock Grader Name Role Phone Yolanda [place] MD Primary Care Physician [place] [facility] [place](s[place] 10/12/19 - 11/25/19 [facility] [address] [address]- [place] Attending Physician: Lefty Plummer MD, Florencio Iglesias Admitting Physician: Lefty Plummer MD, Florencio Iglesias Referring Physician: Yolanda [place] MD Allergies, Adverse [...] rash Active Cats Active Contrast Dye Active [place] Active Dogs Active Dust Active Horses Active [...] stasis(Confirmed) Active 1Dr Melo rheum 2Dr Soco route salesperson multiple food and drug allergies 3[facility] 4colonoscopy 06/21/2019 removed 4 polyps. if positive for ca will need colon resection Social History Social History Type Response Smoking Status Never (less than 100 in lifetime) entered on: 05/30/19 Sex Female
--- OUTSIDE RECORDS SUMMARY | 2023-05-02 12:12 | XMS_ITS | Continuity of Care Document ---
Author Name Unknown Organization [facility] Address [address] [place] [address]- Care Team Providers Care Grain Blender Name Role Phone Yolanda [place] MD Primary Care Physician Encounter [facility] Date(s): 12/20/19 - 01/19/20 [facility] [address] [place] [address]- [facility] Allergies, Adverse Reactions, Alerts Substance Reaction [...] rash Active Cats Active Contrast Dye Active [place] Active Dogs Active Dust Active Horses Active [...] stasis(Confirmed) Active 1Dr Melo rheum 2Dr Soco truck bracer multiple food and drug allergies 3[facility] 4colonoscopy 06/21/2019 removed 4 polyps. if positive for ca will need colon resection Social History Social History Type Response Smoking Status Never (less than 100 in lifetime) entered on: 05/30/19 Sex Female
--- OUTSIDE RECORDS SUMMARY | 2023-05-02 12:12 | XMS_ITS | Continuity of Care Document ---
Author Name Unknown Organization [facility] Address [address] [facility] [place] [address]- Care Team Providers Care Control And Recovery Combat Rescue Name Role Phone Amado GERBER, Yolanda Lance Primary Care Physician Encounter 05/24/20 - 08/30/20 [facility] [address] [facility], [address] [place] [address]- Attending Physician: Yolanda [place] MD Admitting Physician: [...] rash Active Cats Active Contrast Dye Active [place] Active Dogs Active Dust Active Horses Active [...] Maintenance, 04/17/20 10:01:00 [id number], [place]... Start Date: 04/17/20 Status: Ordered Multivitamins [...] stasis(Confirmed) Active 1Dr Melo rheum 2Dr Soco merchandiser retail representative multiple food and drug allergies 3[facility] 4colonoscopy 06/21/2019 removed 4 polyps. if positive for ca will need colon resection Social History Social History Type Response Smoking Status Never (less than 100 in lifetime) entered on: 05/30/19 Sex Female
--- OUTSIDE RECORDS SUMMARY | 2023-05-02 12:12 | XMS_ITS | Continuity of Care Document ---
Author Name Unknown Organization [facility] Address [address] [place] [address]- Care Team Providers Care Linux Programmer Name Role Phone Rahat GERBER, Gaye Macias Primary Care Physician [place] [facility] [place] 09/13/21 - 10/13/[address] [address]- Allergies, Adverse Reactions, Alerts Substance Reaction Severity [...] rash Active Cats Active Contrast Dye Active [place] Active Dogs Active Dust Active Horses Active [...]
--- OUTSIDE RECORDS SUMMARY | 2023-05-02 12:12 | XMS_ITS | Continuity of Care Document ---
Author Name Unknown Organization [facility] Address [address] [address]- Care Team Providers Care Hoop Riveting Machine Operator Name Role Phone Yolanda [place] MD Primary Care Physician [place] [facility] [place](s[place] 10/12/19 - 11/23/19 [facility] [address] [address]- [place] Attending Physician: Lefty Plummer MD, Florencio Iglesias Admitting Physician: Lefty Plummer MD, Florencio Iglesias Referring Physician: Lefty Plummer MD, Florencio Iglesias Allergies, Adverse Reactions, Alerts Substance Reaction Severity [...] rash Active Cats Active Contrast Dye Active [place] Active Dogs Active Dust Active Horses Active [...] stasis(Confirmed) Active 1Dr Melo rheum 2Dr Soco model engine mechanic multiple food and drug allergies 3[facility] 4colonoscopy 06/21/2019 removed 4 polyps. if positive for ca will need colon resection Social History Social History Type Response Smoking Status Never (less than 100 in lifetime) entered on: 05/30/19 Sex Female
--- OUTSIDE RECORDS SUMMARY | 2023-05-02 12:13 | XMS_ITS | Continuity of Care Document ---
Author Name Unknown Organization [facility] Address [address] [place] [address]- Care Team Providers Care Machines Technician Name Role Phone Rahat GERBER, Gaye Macias Primary Care Physician [place] [facility] [place] Date(s): 12/24/21 - 01/23/22 [facility] [address] [place] [address]- Allergies, Adverse Reactions, Alerts Substance Reaction Severity [...] rash Active Cats Active Contrast Dye Active [place] Active Dogs Active Dust Active Horses Active Latex rash Active Mold Active Nuts Active Soy Products Active fentaNYL Active 1Rash [...] 01/22/22 15:19:00 EDT, Route to Pharmacy Electronically, [facility] #[id number], Partialfill upon patient request if the prescription [...] Name: Rahat GERBER, Gaye Macias Address: [address] [place] [address]-
--- OUTSIDE RECORDS SUMMARY | 2023-05-02 12:13 | XMS_ITS | Continuity of Care Document ---
Author Name Unknown Organization [facility] Address [address] [facility] [place] [address]- Care Team Providers Care Director Case Name Role Phone Ruma Bravo MD Primary Care Physician Encounter 08/20/22 - 08/27/22 [facility] [address] [facility], [address] [place] [address]- Attending Physician: Laury Espinosa MD Admitting Physician: Laury Espinosa MD Referring Physician: Laury Espinosa MD Allergies, Adverse Reactions, Alerts Substance Reaction Severity Status atenolol Active codeine Active tetracycline Active clindamycin Active amoxicillin Active penicillin Active predniSONE Allergy to sulfa drugs Activ e sulfa drugs Active shellfish Active ibuprofen Active aspirin Active doxycycline 1 Moderate Active erythromycin Active sulfADIAZINE All sulfa drugs Active metoprolol Active caffeine Active Benadryl, Topical 2 Active Keflex Active Cefzil Active Tums Active Levaquin Active Tylenol Active Dogs Active Dust Active Horses Active Mold Active Nuts Active Cleocin T Active Fosamax Active Augmentin Active Bactrim Active Biaxin XL Active Adhesive Bandage rash Active Cats Active [place] Active Contrast Dye Active Latex rash Active Soy Products Active [...] Instructions Replace Required Details, Route to PharmacyElectronically, [facility] #[id number], 150, c... Start Date: 06/24/22 Status: Ordered lisinopril 5 mg oral tablet 5 mg, 1, tablet, By Mouth, Daily, new start 01/22/22, # 30 tablet, Refills 2, Tot. Refills 2, Maintenance, 01/22/22 15:19:00 EDT, Route to Pharmacy Electronically, [facility] #[id number], Partialfill upon patient request if the prescription [...] Care Team Personnel Name: Yin Hsu Position: [facility] Onco RN Member Role: Primary Care Nurse Name: Ruma Bravo MD Position: [facility] Primary Care Physician Member Role: PCP Address: Address: [address] [place] [address] Family Medicine [address] Name: Consuelo Louis RN Position: [facility] RN Member Role: Primary Care Nurse Name: Cherry Olsen MD Position: [facility] CONTINUOUS DRIER HELPER MD Member Role: Lifetime CONTINUOUS DRIER HELPER Physician Address: Address: [address] [place] [address] Women's [place] [address]- Name: Maeve Jones RN Position: [facility] RN Member Role: Primary Care Nurse Care Team Related Persons Name: MEG MARTIN Address: home [address] [place] [address] Name: JAKE RODRIGUES Address: [place] [address]
--- OUTSIDE RECORDS SUMMARY | 2023-05-02 12:13 | XMS_ITS | Continuity of Care Document ---
Author Name Unknown Organization [facility] Address [address] [address]- Care Team Providers Care Acidity Tester Name Role Phone Patti HARDEN, Shandra Lance Primary Care Physician [phone] Encounter [facility] [id number] Date(s): 02/26/21 - 04/05/21 [facility] [address] [address]- Attending Physician: Savanah Charlton Admitting Physician: Savanah [...] rash Active Cats Active Contrast Dye Active [place] Active Dogs Active Dust Active Horses Active [...] each, 2 Refills, Maintenance, 12/25/20 10:09:00 EDT, [facility] #[id number], Partial fill upon patient request if the [...] kit, 0 Refills, Maintenance, 01/14/21 12:14:00 EDT, [facility] #[id number], Partial fill upon patient request if the [...] stasis(Confirmed) Active 1Dr Melo rheum 2Dr Soco power sewing machine operator multiple food and drug allergies [...]
--- OUTSIDE RECORDS SUMMARY | 2023-05-02 12:13 | XMS_ITS | Continuity of Care Document ---
Author Name Unknown Organization [facility] Address [address] [place] [address]- Care Team Providers Care Seed Cone Picker Name Role Phone Lawrence GERBER, Ruma Bauer Primary Care Physician [place] [facility] [place]05[place] - 12/05/22 [facility] [address] [place] [address]- Allergies, Adverse Reactions, Alerts Substance Reaction Severity [...] rash Active Cats Active Contrast Dye Active [place] Active Dogs Active Dust Active Horses Active [...] 2 Refills, Soft Stop, 10/15/22 14:04:00 EDT, [facility] #[id number], Partial fill upon patient request if the [...] 11/03/22 16:12:00 EDT, Route to Pharmacy Electronically, [facility] #[id number], Partial fill upon patient request if the [...] 2 Refills, Maintenance, 09/08/22 10:06:00 EDT, Tablet, [facility] #[id number],... Start Date: 09/08/22 Status: Ordered lisinopril 5 mg oral tablet 5 mg, 1, tablet, By Mouth, Daily, # 90 tablet, Refills 1, Tot. Refills 1, Maintenance, 09/02/22 9:47:00 EDT, Route to Pharmacy Electronically, [facility] #[id number], 150, cm, 08/27/22 14:11:00 EDT, Height, 45.9, [...] Refills, Soft Stop, 11/03/22 16:11:00 EDT, Tablet, [facility] #[id number], Partial fill upon patient request if the [...] Personnel Name: Shadi , Yin Position: [facility] Onco RN Member Role: Primary Care Nurse Name: Ruma Bravo MD Position: [facility] Physician - Primary Care Member Role: PCP Address: Address: [address] [place] [address] [address] Name: Pretty GERBER, Cherry Gaines Position: [facility] NON DESTRUCTIVE TESTING SUPERVISOR MD Member Role: Lifetime NON DESTRUCTIVE TESTING SUPERVISOR Physician Address: Address: [address] [place] [address] Women's Health Manager Implementation [address] Name: Maeve Jones RN Position: [facility] RN Member Role: Primary Care Nurse Care Team Related Persons Name: MEG MARTIN Address: home [address] [place] [address] Name: JAKE RODRIGUES Address: [place] [address]
--- OUTSIDE RECORDS SUMMARY | 2023-05-02 12:13 | XMS_ITS | Continuity of Care Document ---
Author Name Unknown Organization [facility] Address [address] [address]- Care Team Providers Care Web Ui Designer Name Role Phone Yolanda [place] MD Primary Care Physician En[place] [facility] Date(s): 08/20/20 - 09/19/20 [facility] [address] [address]- [place] Allergies, Adverse Reactions, Alerts Substance Reaction [...] rash Active Cats Active Contrast Dye Active [place] Active Dogs Active Dust Active Horses Active [...] 3 capsule, 1 Refills, Maintenance, 04/17/20 10:01:00 [facility] #[id number], [place]... Start Date: 04/17/20 Status: Ordered Multivitamins [...] stasis(Confirmed) Active 1Dr Melo rheum 2Dr Soco button riveter multiple food and drug allergies 3[facility] 4colonoscopy 06/21/2019 removed 4 polyps. if positive for ca will need colon resection Social History Social History Type Response Smoking Status Never (less than 100 in lifetime) entered on: 05/30/19 Sex Female
--- OUTSIDE RECORDS SUMMARY | 2023-05-02 12:13 | XMS_ITS | Continuity of Care Document ---
Author Name Unknown Organization [facility] Address [address] [address]- Care Team Providers Care Arabic Translator Name Role Phone Yolanda [place] MD Primary Care Physician En[place] [facility] [place] [place] Date(s): 12/24/20 - 01/23/21 [facility] [address] [address]- Attending Physician: Admtr, Will Admitting Physician: Admtr, [...] rash Active Cats Active Contrast Dye Active [place] Active Dogs Active Dust Active Horses Active [...] each, 2 Refills, Maintenance, 12/25/20 10:09:00 EDT, [facility] #[id number], Partial fill upon patient request if the [...] kit, 0 Refills, Maintenance, 01/14/21 12:14:00 EDT, [facility] #[id number], Partial fill upon patient request if the [...] stasis(Confirmed) Active 1Dr Melo rheum 2Dr Soco metal finisher multiple food and drug allergies 3[facility] 4colonoscopy 06/21/2019 removed 4 polyps. if positive for ca will need colon resection Social History Social History Type Response Smoking Status Never (less than 100 in lifetime) entered on: 05/30/19 Sex
--- OUTSIDE RECORDS SUMMARY | 2023-05-02 12:13 | XMS_ITS | Continuity of Care Document ---
Author Name Unknown Organization [facility] Address [address] [place] [address]- Care Team Providers Care Bellman Captain Name Role Phone Yolanda [place] MD Primary Care Physician En[place] [facility] [place] Date(s): 04/18/20 - 05/18/20 [facility] [address] [place] [address]- Allergies, Adverse Reactions, Alerts Substance Reaction Severity [...] rash Active Cats Active Contrast Dye Active [place] Active Dogs Active Dust Active Horses Active [...] capsule, 1 Refills, Maintenance, 04/17/20 10:01:00 [facility] #[id number], [place]... Start Date: 04/17/20 Status: Ordered Multivitamins [...] stasis(Confirmed) Active 1Dr Melo rheum 2Dr Soco manager community development multiple food and drug allergies 3[facility] 4colonoscopy 06/21/2019 removed 4 polyps. if positive for ca will need colon resection Social History Social History Type Response Smoking Status Never (less than 100 in lifetime) entered on: 05/30/19 Sex Female
--- OUTSIDE RECORDS SUMMARY | 2023-05-02 12:13 | XMS_ITS | Continuity of Care Document ---
Author Name Unknown Organization [facility] Address [address] [address]- Care Team Providers Care Appeals Referee Name Role Phone Yolanda [place] MD Primary Care Physician [place] [facility] [place]23[place]19 - 11/30/19 [facility] [address] [address]- [place] Attending Physician: Angel Ivey MD Admitting Physician: Angel Ivey MD Referring Physician: Yolanda [place] MD Allergies, [...] rash Active Cats Active Contrast Dye Active [place] Active Dogs Active Dust Active Horses Active [...] stasis(Confirmed) Active 1Dr Melo rheum 2Dr Soco ekg manager multiple food and drug allergies 3[facility] 4colonoscopy 06/21/2019 removed 4 polyps. if positive for ca will need colon resection Vital Signs Most recent to oldest [Reference Range]: 1 Height 149 cm (11/23/19 11:03 AM) Weight 51.9 kg (11/23/19 11:03 AM) Oxygen Saturation [94-100 %] 99 % (11/23/19 11:03 AM) Pulse Rate [55-90 bpm] 70 bpm (11/23/19 11:03 AM) Body Mass Index [18.5-24.99] 23.38 (11/23/19 11:03 AM) Blood Pressure [90-138/55-84 mm Hg] 130/ 70mm Hg (11/23/19 11:03 AM) Mode of Delivery (Oxygen) Room air (11/23/19 11:03 AM) Blood pressure sites Arm, right (11/23/19 11:03 AM) Weight Obtained Via Standing scale (11/23/19 11:03 AM) Social History Social History Type Response Smoking Status Never (less than 100 in lifetime) entered on: 05/30/19 Sex Female
--- OUTSIDE RECORDS SUMMARY | 2023-05-02 12:13 | XMS_ITS | Continuity of Care Document ---
Author Name Unknown Organization [facility] Address [address] [place] [address]- Care Team Providers Care Hospice Coordinator Name Role Phone Lawrence GERBER, Ruma Bauer Primary Care Physician En[place] [facility] [place] Date(s): 11/12/22 - 12/12/22 [facility] [address] [place] [address]- Allergies, Adverse Reactions, Alerts Substance Reaction Severity Status atenolol Active codeine Active penicillin Active caffeine Active sulfa drugs Active ibuprofen Active aspirin Active doxycycline 1 Moderate Active tetracycline Active clindamycin Active erythromycin Active amoxicillin Active sulfADIAZINE All sulfa drugs Active metoprolol Active predniSONE Allergy to sulfa drugs Activ e shellfish Active Benadryl, Topical 2 Active Keflex Active Fosamax Active Cefzil Active Tums Active Levaquin Active Tylenol Active Horses Active Mold Active Nuts Active Cleocin T Active Augmentin Active Bactrim Active Biaxin XL Active Adhesive Bandage rash Active Cats Active [place] Active Contrast Dye Active Dogs Active Dust [...] 2 Refills, Soft Stop, 10/15/22 14:04:00 EDT, [facility] #[id number], Partial fill upon patient request if the [...] 11/03/22 16:12:00 EDT, Route to Pharmacy Electronically, [facility] #[id number], Partial fill upon patient request if the [...] 2 Refills, Maintenance, 09/08/22 10:06:00 EDT, Tablet, [facility] #[id number],... Start Date: 09/08/22 Status: Ordered lisinopril 5 mg oral tablet 5 mg, 1, tablet, By Mouth, Daily, # 90 tablet, Refills 1, Tot. Refills 1, Maintenance, 09/02/22 9:47:00 EDT, Route to Pharmacy Electronically, [facility] #[id number], 150, cm, 08/27/22 14:11:00 EDT, Height, 45.9, [...] Refills, Soft Stop, 11/03/22 16:11:00 EDT, Tablet, [facility] #[id number], Partial fill upon patient request if the [...] Team Personnel Name: Shadi , Yin Position: [facility] Onco RN Member Role: Primary Care Nurse Name: uRma Bravo MD Position: [facility] Physician - Primary Care Member Role: PCP Address: Address: [address] [place] [address] Family Medicine [address] Name: Pretty GERBER, Cherry Gaines Position: [facility] PERSONNEL RECORDS CLERK MD Member Role: Lifetime PERSONNEL RECORDS CLERK Physician Address: Address: [address] [place] [address] Women's Health Curriculum Specialist [address] Name: Maeve Jones RN Position: [facility] RN Member Role: Primary Care Nurse Care Team Related Persons Name: MEG MARTIN Address: home [address] [place] [address] Name: JAKE RODRIGUES Address: [place] [address]
--- OUTSIDE RECORDS SUMMARY | 2023-05-02 12:13 | XMS_ITS | Continuity of Care Document ---
Author Name Unknown Organization [facility] Address [address] [address]- Care Team Providers Care Senior Supply Chain Analyst Name Role Phone Rahat GERBER, Gaye Macias Primary Care Physician [place] [facility] [place] 11[place]18/21 - 12/18/21 [facility] [address] [address]- [place] Allergies, Adverse Reactions, Alerts Substance Reaction Severity Status atenolol Active codeine Active ibuprofen Active doxycycline 1 Moderate Active tetracycline Active clindamycin Active penicillin Active sulfADIAZINE All sulfa drugs Active vancomycin 2 rash Persistent Mild Active aspirin Active caffeine Active shellfish Active Benadryl, Topical 3 Active Keflex Active Cleocin T Active Fosamax Active Cefzil Active erythromycin Active metoprolol Active Tums Active Levaquin Active Tylenol Active Biaxin XL Active Adhesive Bandage rash Active Cats Active Contrast Dye Active [place] Active Dogs Active Dust Active Horses Active Mold Active Nuts Active Soy Products Active fentaNYL Active Latex rash Active Bactrim Active Pork Active 1Rash 2rash 3Pt States [...]
--- OUTSIDE RECORDS SUMMARY | 2023-05-02 12:13 | XMS_ITS | Continuity of Care Document ---
Author Name Unknown Organization [facility] Address [address] [place] [address]- Care Team Providers Care Manager Beverage Name Role Phone Ruma Bravo MD Primary Care Physician [place] [facility] [place] 01/13/23 - 02/12/23 [facility] [address] [place] [address]- Allergies, Adverse Reactions, Alerts Substance Reaction Severity Status atenolol Active codeine Active ibuprofen Active doxycycline 1 Moderate Active tetracycline Active clindamycin Active erythromycin Active amoxicillin Active penicillin Active sulfADIAZINE All sulfa drugs Active metoprolol Active aspirin Active predniSONE Allergy to sulfa drugs Activ e caffeine Active sulfa drugs Active shellfish Active Keflex Active Cleocin T Active Fosamax Active Cefzil Active Tums Active Augmentin Active Levaquin Active Tylenol Active Bactrim Active Biaxin XL Active Adhesive Bandage rash Active Cats Active Contrast Dye Active [place] Active Dogs Active Dust Active Horses Active Latex rash Active Mold Active Nuts Active Soy Products Active fentaNYL Active Other Food Allergy chicken broccoli other veggetables tomatoes onions cucumbers lettuce peas carrots wheat rash hives itchy Active Benadryl, Topical 2 Active 1Rash 2Pt States she tolerates Benadryl by mouth fine 11/06/20 Immunizations Given and Recorded Vaccine Date Status Refusal Reason SARS-CoV-2 (COVID-19) mRNA BNT-162b2 vac 08/29/20 Recorded tetanus/diphtheria/pertussis, acel(Tdap) 1 01/25/10 Given 1Admin Note: vis given 03-21-2008 Medications baclofen 5 mg oral tablet = 0.5 mg, By Mouth, 3 times a day, # 45 tablet, 1 Refills, Maintenance, 01/19/23 10:23:00 EDT, Tablet, [facility] #[id number], Partial fill upon patient request if the [...] Gm, 0 Refills, Maintenance, 12/17/22 11:48:00 EDT, Gel, [facility] #[id number], Partial fill upon patient request if the prescription is for a schedule II opioid drug., 152, cm,... Start Date: 12/17/22 Status: Ordered diclofenac 1% topical gel 1 application, Topically, 4 times a day, # 100 Gm, 0 Refills, Maintenance, 12/25/22 11:12:00 EDT, [facility][id number], Partial fill upon patient request if the prescription is for a schedule II opioid drug., 152, cm, 12/25/22 10:26:00 EDT... Start Date: 12/25/22 Status: Ordered diphenhydrAMINE 50 mg oral tablet 1 tablet = 50 mg, By Mouth, Once, [address] scan, # 1 tablet, 2 Refills, Soft Stop, 10/15/22 14:04:00 EDT, [facility] #[id number], Partial fill upon patient request if the [...] 11/03/22 16:12:00 EDT, Route to Pharmacy Electronically, [facility][id number], Partial fill upon patient request if the [...] 2 Refills, Maintenance, 09/08/22 10:06:00 EDT, Tablet, [facility] #[id number],... Start Date: 09/08/22 Status: Ordered lisinopril 5 mg oral tablet 5 mg, 1, tablet, By Mouth, Daily, # 90 tablet, Refills 1, Tot. Refills 1, Maintenance, 09/02/22 9:47:00 EDT, Route to Pharmacy Electronically, [facility] #[id number], 150, cm, 08/27/22 14:11:00 EDT, Height, 45.9, [...] Mass Protocol in one year. CT ordered. 6April 2020 7Pt. had 2nd Pfizer vaccine on 09/19 and pain in her L hand on 10/07. Social History Social History Type Response Smoking Status Never (less than 100 in lifetime) entered on: 05/30/19 Sex Patient Care team information Care Team Personnel Name: Yin Hsu Position: [facility] RN Member Role: Primary Care Nurse Name: Ruma Bravo MD Position: [facility] Physician - Primary Care Member Role: PCP Address: Address: [address] [place] [address] Family Medicine - [address] Name: Shikha Rivera RN Position: [facility] RN Member Role: Primary Care Nurse Name: Consuelo Louis RN Position: [facility] RN Member Role: Primary Care Nurse Name: Cherry Olsen MD Position: [facility] JIG INSPECTOR MD Member Role: Lifetime JIG INSPECTOR Physician Address: Address: [address] [place] [address] [facility] Drop [employer] [place], [place] [address] Name: Maeve Jones RN Position: [facility] RN Member Role: Primary Care Nurse Care Team Related Persons Name: MEG MARTIN Address: home [address] [place] [id number] Name: JAKE RODRIGUES Address: [place] [address]
--- OUTSIDE RECORDS SUMMARY | 2023-05-02 12:13 | XMS_ITS | Continuity of Care Document ---
Author Name Unknown Organization [facility] Address [address] [address]- Care Team Providers Care Grounds And Nursery Specialist Name Role Phone Yolanda Fischer MD Primary Care Physician [place] [facility] [place] 08/23/20 - 10/12/20 [facility] [address] [address]- Attending Physician: Savanah Charlton Admitting Physician: Savanah Charlton Referring Physician: Savanah Charlton Allergies, Adverse Reactions, Alerts Substance Reaction Severity Status atenolol Active codeine Active doxycycline 1 Moderate Active penicillin Active Keflex Active Fosamax Active ibuprofen Active aspirin Active Benadryl, Topical Active tetracycline Active erythromycin Active shellfish Active sulfADIAZINE All sulfa drugs Active metoprolol Active caffeine Active Cleocin T Active Cefzil Active Tums Active Levaquin Active Tylenol Active Dogs Active Dust Active Horses Active Mold Active Nuts Active Soy Products Active fentaNYL Active Latex rash Active Bactrim Active Biaxin XL Active Adhesive Bandage rash Active Cats Active [place] Active Contrast Dye Active Pork Active 1Rash Immunizations Given and Recorded Vaccine [...] capsule, 1 Refills, Maintenance, 04/17/20 10:01:00 EST, [facility] #[id number], [place]... Start Date: 04/17/20 Status: Ordered linezolid 600 mg oral tablet 1 tablet = 600 mg, By Mouth, 2 times a day, for 5 days, # 10 tablet, 0 Refills, Acute 10/17/20 12:23:00 EDT, 10/12/20 12:23:00 EDT, Tablet, [facility], Partial fill upon patient requestif the prescription is for a schedule II opioid lizbeth... Start Date: 10/12/20 Stop Date: 10/17/20 Status: Ordered Multivitamins Multivitamins, Refills 0, Maintenance, [...] Venous stasis(Confirmed) Active 1Dr Melo rheum 2Dr Mudawwar grinder multiple food and drug allergies 3[facility] 4colonoscopy 06/21/2019 removed 4 polyps. if positive for ca will need colon resection Social History Social History Type Response Smoking Status Never (less than 100 in lifetime) entered on: 05/30/19 Sex Female
--- OUTSIDE RECORDS SUMMARY | 2023-05-02 12:13 | XMS_ITS | Continuity of Care Document ---
Author Name Unknown Organization [facility] Address [address] [address]- Care Team Providers Care Residency Program Coordinator Name Role Phone Yolanda Fischer MD Primary Care Physician [place] [facility] [place] [facility] [place] 11/23/19 - 12/23/19 [facility] [address] [address]- [facility] Attending Physician: AdmWill mcdonough Admitting Physician: Admtr, [...] rash Active Cats Active Contrast Dye Active [place] Active Dogs Active Dust Active Horses Active [...] stasis(Confirmed) Active 1Dr Melo rheum 2Dr Soco sandfill operator surface multiple food and drug allergies 3[facility] 4colonoscopy 06/21/2019 removed 4 polyps. if positive for ca will need colon resection Social History Social History Type Response Smoking Status Never (less than 100 in lifetime) entered on: 05/30/19 Sex Female
--- OUTSIDE RECORDS SUMMARY | 2023-05-02 12:13 | XMS_ITS | Continuity of Care Document ---
Author Name Unknown Organization [facility] Address [address] [place] [address]- Care Team Providers Care Bank Officer Name Role Phone Ruma Bravo MD Primary Care Physician Encounter [facility] [place] Date(s): 02/27/23 - 03/06/23 [facility] [address] [place] [address]- Encounter Diagnosis Renal cyst(Discharge Diagnosis) - 02/27/23 Chronic neck pain(Discharge Diagnosis) - 02/27/23 Ovarian cyst(Discharge Diagnosis) - 02/27/23 Family history of bladder cancer(Discharge Diagnosis) - 02/27/23 Attending Physician: Ruma Bravo MD Allergies, Adverse Reactions, Alerts Substance Reaction Severity Status atenolol Active codeine Active amoxicillin Active penicillin Active metoprolol Active sulfa drugs Active shellfish Active ibuprofen Active aspirin Active doxycycline 1 Moderate Active tetracycline Active clindamycin Active erythromycin Active sulfADIAZINE All sulfa drugs Active predniSONE Allergy to sulfa drugs Activ e caffeine Active Keflex Active Cefzil Active Tums Active Levaquin Active Tylenol Active Horses Active Mold Active Nuts Active Benadryl, Topical 2 Active Cleocin T Active Fosamax Active Augmentin Active Bactrim Active Biaxin XL Active Adhesive Bandage rash Active Cats Active [place] Active Contrast Dye Active Dogs Active Dust [...] 1 Refills, Maintenance, 01/19/23 10:23:00 EDT, Tablet, [facility] #[id number], Partial fill upon patient request if the [...] 0 Refills, Maintenance, 12/17/22 11:48:00 EDT, Gel, [facility] #[id number], Partial fill upon patient request if the prescription is for a schedule II opioid drug., 152, cm,... Start Date: 12/17/22 Status: Ordered diclofenac 1% topical gel 1 application, Topically, 4 times a day, # 100 Gm, 0 Refills, Maintenance, 12/25/22 11:12:00 EDT, [facility][id number], Partial fill upon patient request if the prescription is for a schedule II opioid drug., 152, cm, 12/25/22 10:26:00 EDT... Start Date: 12/25/22 Status: Ordered diphenhydrAMINE 50 mg oral tablet 1 tablet = 50 mg, By Mouth, Once, [address] scan, # 1 tablet, 2 Refills, Soft Stop, 10/15/22 14:04:00 EDT, [facility] #[id number], Partial fill upon patient request if the [...] 11/03/22 16:12:00 EDT, Route to Pharmacy Electronically, [facility] #[id number], Partial fill upon patient request if the [...] 2 Refills, Maintenance, 09/08/22 10:06:00 EDT, Tablet, [facility] #[id number],... Start Date: 09/08/22 Status: Ordered lisinopril 5 mg oral tablet 5 mg, 1, tablet, By Mouth, Daily, # 90 tablet, Refills 1, Tot. Refills 1, Maintenance, 09/02/22 9:47:00 EDT, Route to Pharmacy Electronically, [facility] #[id number], 150, cm, 08/27/22 14:11:00 EDT, Height, 45.9, [...] Dates Health Status Cl inical Service Informant Renal cyst Discharge Diagnosis 02/27/23 Ovarian cyst Discharge Diagnosis 02/27/23 Chronic neck pain Discharge Diagnosis 02/27/23 Family history of bladder cancer Discharge Diagnosis 02/27/23 Vital Signs Most recent to oldest [Reference Range]: 1 Height 152 cm (02/27/23 8:11 AM) Weight 46.8 kg (02/27/23 8:11 AM) Oxygen Saturation [94-100 %] 99 % (02/27/23 8:11 AM) Pulse Rate [55-90 bpm] 95 bpm *H* (02/27/23 8:11 AM) Body Mass Index [18.5-24.99 kg/m2] 20.26 kg/m2 (02/27/23 8:11 AM) Blood Pressure [90-138/55-84 mm Hg] 127/ 74mm Hg (02/27/23 8:11 AM) Blood pressure sites Arm, left (02/27/23 8:11 AM) Weight Obtained Via Standing scale (02/27/23 8:11 AM) Social History Social History Type Response Smoking Status Never (less than 100 in lifetime) entered on: 05/30/19 Sex Patient Care team information Care Team Personnel Name: Yin Hsu Position: [facility] Onco RN Member Role: Primary Care Nurse Name: Ruma Bravo MD Position: [facility] Physician - Primary Care Member Role: PCP Address: Address: [address] [place] [address] Family [place] [address] Name: Shikha Rivera RN Position: [facility] RN Member Role: Primary Care Nurse Name: Consuelo Louis RN Position: [facility] RN Member Role: Primary Care Nurse Name: Cherry Olsen MD Position: [facility] HOSPICE CASE MANAGER MD Member Role: Lifetime HOSPICE CASE MANAGER Physician Address: Address: [address] [place] [address] Women's Health Extrusion Die Coordinator - [place], [place] [email or web address] Name: Maeve Jones RN Position: [facility] RN Member Role: Primary Care Nurse Care Team Related Persons Name: MEG MARTIN Address: home [address] [place] [id number] Name: JAKE RODRIGUES Address: [place] [address]
--- OUTSIDE RECORDS SUMMARY | 2023-05-02 12:13 | XMS_ITS | Continuity of Care Document ---
Author Name Unknown Organization [facility] Address [address] [place] [address]- Care Team Providers Care Well Tester Name Role Phone Yolanda Fischer MD Primary Care Physician Encounter [facility] Date(s): 08/03/19 - 08/13/19 [facility] [address] [place] [address]- [facility] Attending Physician: Admtr, Ar8 Admitting Physician: [...] Active Adhesive Bandage rash Active Cats Active [place] Active Dogs Active Dust Active Horses Active [...] bleeding(Confirmed) Active 1Dr Melo rheum 2Dr Soco picc nurse multiple food and drug allergies 3[facility] 4colonoscopy 06/21/2019 removed 4 polyps. if positive for ca will need colon resection Social History Social History Type Response Smoking Status Never (less than 100 in lifetime) entered on: 05/30/19 Sex
--- OUTSIDE RECORDS SUMMARY | 2023-05-02 12:13 | XMS_ITS | Continuity of Care Document ---
Author Name Unknown Organization [facility] Address [address] [place] [address]- Care Team Providers Care Customizer Name Role Phone Lawrence GERBER, Ruma Bauer Primary Care Physician [place] [facility] [place] 10/27/22 - 11/26/22 [facility] [address] [place] [address]- Allergies, Adverse Reactions, Alerts Substance Reaction Severity Status atenolol Active codeine Active ibuprofen Active penicillin Active aspirin Active sulfa drugs Active doxycycline 1 Moderate Active tetracycline Active clindamycin Active erythromycin Active amoxicillin Active sulfADIAZINE All sulfa drugs Active metoprolol Active predniSONE Allergy to sulfa drugs Activ e caffeine Active shellfish Active Benadryl, Topical 2 Active Keflex Active Cefzil Active Tums Active Levaquin Active Tylenol Active Dogs Active Dust Active Horses Active Mold Active Nuts Active Cleocin T Active Fosamax Active Augmentin Active Bactrim Active Biaxin XL Active Adhesive Bandage rash Active Cats Active [place] Active Contrast Dye Active Latex rash Active [...] 2 Refills, Soft Stop, 10/15/22 14:04:00 EDT, [facility] #[id number], Partial fill upon patient request if the [...] 11/03/22 16:12:00 EDT, Route to Pharmacy Electronically, [facility] #[id number], Partial fill upon patient request if the [...] 2 Refills, Maintenance, 09/08/22 10:06:00 EDT, Tablet, [facility] #[id number],... Start Date: 09/08/22 Status: Ordered lisinopril 5 mg oral tablet 5 mg, 1, tablet, By Mouth, Daily, # 90 tablet, Refills 1, Tot. Refills 1, Maintenance, 09/02/22 9:47:00 EDT, Route to Pharmacy Electronically, [facility] #[id number], 150, cm, 08/27/22 14:11:00 EDT, Height, 45.9, [...] Refills, Soft Stop, 11/03/22 16:11:00 EDT, Tablet, [facility] #[id number], Partial fill upon patient request if the [...] Team Personnel Name: Shadi , Yin Position: [facility] Onco RN Member Role: Primary Care Nurse Name: Ruma Bravo MD Position: [facility] Physician - Primary Care Member Role: PCP Address: Address: [address] [place] [address] Family Medicine [address] Name: Pretty GERBER, Cherry Gaines Position: [facility] BOTTLE AND GLASS INSPECTOR MD Member Role: Lifetime BOTTLE AND GLASS INSPECTOR Physician Address: Address: [address] [place] [address] Women's Health Chemical Research Engineer [address] Name: Maeve Jones RN Position: [facility] RN Member Role: Primary Care Nurse Care Team Related Persons Name: MEG MARTIN Address: home [address] [place] [id number] Name: JAKE RODRIGUES Address: [place] [address]
--- OUTSIDE RECORDS SUMMARY | 2023-05-02 12:13 | XMS_ITS | Continuity of Care Document ---
Author Name Unknown Organization [facility] Address [address] [place] [address]- Care Team Providers Care Interventional Nurse Name Role Phone Rahat GERBER, Gaye Macias Primary Care Physician ( [phone] [place] [facility] [place] - 01/02/22 [facility] [address] [place] [address]- Attending Physician: Gaye Giang MD Allergies, Adverse Reactions, [...] rash Active Cats Active Contrast Dye Active [place] Active Dogs Active Dust Active Horses Active [...] Name: Rahat GERBER, Gaye Macias Address: [address] [place] [address]-
--- OUTSIDE RECORDS SUMMARY | 2023-05-02 12:13 | XMS_ITS | Continuity of Care Document ---
Author Name Unknown Organization [facility] Address [address] [address]- Care Team Providers Care Balance Clerk Name Role Phone Yolanda Fischer MD Primary Care Physician Encounter [facility] [place] Date(s): 10/24/19 - 10/31/19 [facility] [address] [address]- [place] Attending Physician: Lefty Plummer MD, Florencio Iglesias Admitting Physician: Florencio Olea Jr, MD Referring Physician: Lefty Plummer MD, Florencio Iglesias [...] Active Adhesive Bandage rash Active Cats Active [place] Active Dogs Active Dust Active Horses Active [...] stasis(Confirmed) Active 1Dr Melo rheum 2Dr Soco bun panner multiple food and drug allergies 3[facility] 4colonoscopy 06/21/2019 removed 4 polyps. if positive for ca will need colon resection Social History Social History Type Response Smoking Status Never (less than 100 in lifetime) entered on: 05/30/19 Sex Female
--- OUTSIDE RECORDS SUMMARY | 2023-05-02 12:13 | XMS_ITS | Continuity of Care Document ---
Author Name Unknown Organization [facility] Address [address] [place] [address]- Care Team Providers Care Rock Cutter Name Role Phone Yolanda Fischer MD Primary Care Physician En[place] [facility] [place] Date(s[place] 10/02/19 - 11/26/19 [facility] [address] [place] [address]- [facility] Attending Physician: Laury Espinosa MD Admitting Physician: Laury Espinosa MD Referring Physician: Yolanda Fischer MD Allergies, [...] rash Active Cats Active Contrast Dye Active [place] Active Dogs Active Dust Active Horses Active [...] stasis(Confirmed) Active 1Dr Melo rheum 2Dr Soco academic success coordinator multiple food and drug allergies 3[facility] 4colonoscopy 06/21/2019 removed 4 polyps. if positive for ca will need colon resection Social History Social History Type Response Smoking Status Never (less than 100 in lifetime) entered on: 05/30/19 Sex Female
--- OUTSIDE RECORDS SUMMARY | 2023-05-02 12:13 | XMS_ITS | Continuity of Care Document ---
Author Name Unknown Organization [facility] Address [address] [address]- Care Team Providers Care Acquisition Cost Estimator Name Role Phone Patti HARDEN, Shandra Lance Primary Care Physician [place] [facility] [place] 04/25/21 [facility] [address] [address]- Attending Physician: Savanah Charlton Admitting Physician: Savanah [...] rash Active Cats Active Contrast Dye Active [place] Active Dogs Active Dust Active Horses Active [...] each, 2 Refills, Maintenance, 12/25/20 10:09:00 EDT, [facility] #[id number], Partial fill upon patient request if the [...] stasis(Confirmed) Active 1Dr Melo rheum 2Dr Soco fruit packer multiple food and drug allergies 3[facility] 4colonoscopy 06/21/2019 removed 4 polyps. if positive for ca will need colon resection 5Late April 2020 6Pt. had 2nd Pfizer vaccine on 09/19 and pain in her L hand on 10/07. Social History Social History Type Response Smoking Status Never (less than 100 in lifetime) entered on: 05/30/19 Sex
--- OUTSIDE RECORDS SUMMARY | 2023-05-02 12:14 | XMS_ITS | Continuity of Care Document ---
Author Name Unknown Organization [facility] Address [address] [place] [address]- Care Team Providers Care Pyrometer Temperature Regulator Name Role Phone Yolanda Fischer MD Primary Care Physician [place] [facility] [place] - 06/13/20 [facility] [address] [place] [address]- Attending Physician: Will Wilson Admitting Physician: Admtr, [...] rash Active Cats Active Contrast Dye Active [place] Active Dogs Active Dust Active Horses [...] capsule, 1 Refills, Maintenance, 04/17/20 10:01:00 EST, [facility][id number], [place]... Start Date: 04/17/20 Status: Ordered Multivitamins [...] stasis(Confirmed) Active 1Dr Melo rheum 2Dr Soco contact lens edge buffer multiple food and drug allergies 3[facility] 4colonoscopy 06/21/2019 removed 4 polyps. if positive for ca will need colon resection Social History Social History Type Response Smoking Status Never (less than 100 in lifetime) entered on: 05/30/19 Sex Female
--- OUTSIDE RECORDS SUMMARY | 2023-05-02 12:14 | XMS_ITS | Continuity of Care Document ---
Author Name Unknown Organization [facility] Address [address] [place] [address]- Care Team Providers Care Cosmetician Apprentice Name Role Phone Rahat GERBER, Gaye Macias Primary Care Physician Encounter [facility] Date(s): 07/09/22 - 08/08/22 [facility] [address] [place] [address]- Allergies, Adverse Reactions, Alerts Substance Reaction Severity Status atenolol Active codeine Active ibuprofen Active clindamycin Active amoxicillin Active penicillin Active aspirin Active predniSONE Allergy to sulfa drugs Activ e caffeine Active sulfa drugs Active shellfish Active doxycycline 1 Moderate Active tetracycline Active erythromycin Active sulfADIAZINE All sulfa drugs Active metoprolol Active Benadryl, Topical 2 Active Keflex Active Cefzil Active Tums Active Augmentin Active Levaquin Active Tylenol Active Horses Active Latex rash Active Mold Active Nuts Active Cleocin T Active Fosamax Active Bactrim Active Biaxin XL Active Adhesive Bandage rash Active Cats Active [place] Active Contrast Dye Active Dogs Active Dust Active Soy Products Active fentaNYL Active Other [...] Instructions Replace Required Details, Route to PharmacyElectronically, [facility] #[id number], 150, c... Start Date: 06/24/22 Status: Ordered lisinopril 5 mg oral tablet 5 mg, 1, tablet, By Mouth, Daily, new start 01/22/22, # 30 tablet, Refills 2, Tot. Refills 2, Maintenance, 01/22/22 15:19:00 EDT, Route to Pharmacy Electronically, [facility] #[id number], Partialfill upon patient request if the prescription [...] Care Team Personnel Name: Yin Hsu Position: [facility] Onco RN Member Role: Primary Care Nurse Name: Rahat GERBER, Gaye Macias Position: [facility] Primary Care Physician Member Role: PCP Address: Address: [address] [place] [address] Family Medicine [address] Name: Consuelo Louis RN Position: [facility] RN Member Role: Primary Care Nurse Name: Cherry Olsen MD Position: [facility] WIRE LOOP MACHINE OPERATOR MD Member Role: Lifetime WIRE LOOP MACHINE OPERATOR Physician Address: Address: [address] [place] [address] Women[facility] Health Solid[employer] Mechanical Designer - [address] Name: Robert GALLAGHER, Maeve Bauer Position: [facility] RN Member Role: Primary Care Nurse Care Team Related Persons Name: MEG MARTIN Address: home [address] [place] [address] Name: JAKE RODRIGUES Address: [place] [address]
--- OUTSIDE RECORDS SUMMARY | 2023-05-02 12:14 | XMS_ITS | Continuity of Care Document ---
Author Name Unknown Organization [facility] Address [address] [address]- Care Team Providers Care Medical Biller Name Role Phone Patti HARDEN, Shandra Lance Primary Care Physician [phone] Encounter [facility] Date(s): 02/18/21 - 03/20/21 [facility] [address] [address] Allergies, Adverse Reactions, Alerts Substance Reaction [...] rash Active Cats Active Contrast Dye Active [place] Active Dogs Active Dust Active Horses Active [...] each, 2 Refills, Maintenance, 12/25/20 10:09:00 EDT, [facility] #[id number], Partial fill upon patient request if the [...] kit, 0 Refills, Maintenance, 01/14/21 12:14:00 EDT, [facility] #[id number], Partial fill upon patient request if the [...] stasis(Confirmed) Active 1Dr Melo rheum 2Dr Soco energy sales broker multiple food and drug allergies 3[facility] 4colonoscopy 06/21/2019 removed 4 polyps. if positive for ca will need colon resection 5Late April 2020 6Pt. had 2nd Pfizer vaccine on 09/19 and pain in her L hand on 10/07. Social History Social History Type Response Smoking Status Never (less than 100 in lifetime) entered on: 05/30/19 Sex
--- OUTSIDE RECORDS SUMMARY | 2023-05-02 12:14 | XMS_ITS | Continuity of Care Document ---
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(Discharge Diagnosis) - 01/19/23 Attending Physician: Not on Staff, Attending MD Referring Physician: Ruma Bravo MD Allergies, Adverse Reactions, Alerts Substance Reaction Severity Status atenolol Active codeine Active ibuprofen Active erythromycin Active penicillin Active sulfADIAZINE All sulfa drugs Active aspirin Active caffeine Active doxycycline 1 Moderate Active tetracycline Active clindamycin Active amoxicillin Active metoprolol Active predniSONE Allergy to sulfa drugs Activ e sulfa drugs Active shellfish Active Keflex Active Cefzil Active Tums Active Augmentin Active Levaquin Active Tylenol Active Horses Active Mold Active Nuts Active Benadryl, Topical 2 Active Cleocin T Active Fosamax Active Bactrim Active Biaxin XL Active Adhesive Bandage rash Active Cats Active [place] Active Contrast Dye Active Dogs Active Dust [...] 1 Refills, Maintenance, 01/19/23 10:23:00 EDT, Tablet, [facility] #[id number], Partial fill upon patient request if the [...] 0 Refills, Maintenance, 12/17/22 11:48:00 EDT, Gel, [facility] #[id number], Partial fill upon patient request if the prescription is for a schedule II opioid drug., 152, cm,... Start Date: 12/17/22 Status: Ordered diclofenac 1% topical gel 1 application, Topically, 4 times a day, # 100 Gm, 0 Refills, Maintenance, 12/25/22 11:12:00 EDT, Gel, [facility] #[id number], Partial fill upon patient request if the prescription is for a schedule II opioid drug., 152, cm, 12/25/22 10:26:00 EDT... Start Date: 12/25/22 Status: Ordered diphenhydrAMINE 50 mg oral tablet 1 tablet = 50 mg, By Mouth, Once, [address] scan, # 1 tablet, 2 Refills, Soft Stop, 10/15/22 14:04:00 EDT, [facility] #[id number], Partial fill upon patient request if the [...] 11/03/22 16:12:00 EDT, Route to Pharmacy Electronically, [facility] #[id number], Partial fill upon patient request if the [...] 2 Refills, Maintenance, 09/08/22 10:06:00 EDT, Tablet, [facility] #[id number],... Start Date: 09/08/22 Status: Ordered lisinopril 5 mg oral tablet 5 mg, 1, tablet, By Mouth, Daily, # 90 tablet, Refills 1, Tot. Refills 1, Maintenance, 09/02/22 9:47:00 EDT, Route to Pharmacy Electronically, [facility] #[id number], 150, cm, 08/27/22 14:11:00 EDT, Height, 45.9, [...] mL, 0 Refills, Maintenance, 10/21/22 16:47:00 EDT, [facility]/pharmacy #[id number], Partial fill upon patient request if [...] Effective Dates Health Status Clinical Service Informant Cervicothoracic kyphoscoliosis with Multilevel Subluxations Discharge Diagnosis 01/19/23 Non-Specified Multilevel degenerative disc disease with cervical stenosis 1 Discharge Diagnosis 01/19/23 Non-Specified 12:19 EDT - Nawaf HARDEN, Rehana Gaines C3-4, C4-5, C5-6 Vital Signs Most recent to oldest [Reference Range]: 1 2 Height 152 cm (01/19/23 9:53 AM) 152 cm (01/19/23 9:43 AM) Weight 46.6 kg (01/19/23 9:43 AM) Oxygen Saturation [94-100 %] 99 % (01/19/23 9:43 AM) Pulse Rate [55-90 bpm] 99 bpm *H* (01/19/23 9:43 AM) Body Mass Index [18.5-24.99 kg/m2] 20.17 kg/m2 (01/19/23 9:43 AM) Blood Pressure [90-138/55-84 mm Hg] 134/ 82mm Hg (01/19/23 9:53 AM) 141/86mm Hg *H* (01/19/23 9:43 AM) Blood pressure sites Arm, left (01/19/23 9:53 AM) Arm, left (01/19/23 9:43 AM) Weight Obtained Via Standing scale (01/19/23 9:43 AM) Social History Social History Type Response Smoking Status Never (less than 100 in lifetime) entered on: 05/30/19 Sex Note * Lashaun Lang: SIGN, VERIFY, PERFORM Event Display: Patient Education/Instruction Authored Date: [id number] [facility] *[facility] Clinical Summary Name NAUN MARTIN Age 77 Years 1945 PCP Lawrence GERBER, Ruma Bauer PCP Visit Date 01/19/2023 09:41:00 Patient Instructions Call PT office to make an appointment. Call Dr. Khan to schedule Defacogram. Additional Instructions: Scheduled Appointments?? Future Appointments ?[facility] ?[address]??[place],??[place],??[address] ?Phone:??[phone]?Fax:??-- ?Appt. Date:??01/21/2023?9:30 AM ?Scheduled Provider:??[facility] ?*[facility] ?[address]??[place],??[place],??[address] ?Phone:??--?Fax:??-- ?Appt. Date:??02/09/2023?9:00 AM ?Scheduled Provider:??Nawaf HARDEN, Rehana Gaines ?*[facility] ?[address]??[place],??[place],??[address] ?Phone:??--?Fax:??-- ?Appt. Date:??02/17/2023?10:30 AM ?Scheduled Provider:??Darnell Malik ?*[facility] ?Phone:??--?Fax:??-- ?Appt. Date:??03/24/2023?9:30 AM ?Scheduled Provider:??Laury Espinosa MD Follow-Up Instructions ?? With: Address: When: PCP In 3 weeks Comments: for chronic pain management/request for Tramadol Diagnosis Unspecified kyphosis, cervicothoracic region Medications: Please continue your medications until treatment is completed or stopped by your provider. Discuss any questions related to medications with your provider. New Medications [facility][id number], [address], [place] [id number], [phone] Duloxetine (duloxetine 30 mg oral enteric coated capsule) 1 capsule Oral Daily for 60 Days. Take one tablet per day (30 mg) for management of chronic pain. After two weeeks, may increase to 2 tablets(60 mg) per day if desired effect not reached by one tablet per day.. Refills: 0. Next Dose: Medications to Continue Taking That Have Changed [facility] #[id number], [address], [place] [id number], [phone] - Baclofen (baclofen 5 mg oral tablet) 0.5 Milligram Oral 3 times a day for 30 Days. Refills: 1. Next Dose: Medications to Continue with No Changes These medications were not printed or sent to your pharmacy Barium Sulfate (Readi-Cat 2 oral suspension) Dispense [...] to CT scan. Refills: 2. Next Dose: Durable Medical Equipment (Cane) Dx [...] Omeprazole 40 Milligram Oral Daily. Next Dose: No Longer Take the Following Medications Gabapentin (gabapentin 100 mg oral capsule) 100 Milligram Oral Daily at Bedtime for 30 Days. Refills: 0. Allergy Info:?? fentaNYL; Soy Products; Other Food Allergy; Nuts; Mold; Latex; Horses; Dust; Dogs; Herculaneum; Contrast Dye; Cats; Adhesive Bandage; Biaxin XL; Bactrim; Tylenol; Levaquin; Augmentin; Tums; Cefzil; Fosamax; Cleocin T; Keflex; Benadryl, Topical; shellfish; sulfa drugs; caffeine; predniSONE;aspirin; metoprolol; sulfADIAZINE; penicillin; amoxicillin; erythromycin; clindamycin; tetracycline; doxycycline; ibuprofen; codeine; atenolol Medications Given This Visit Future Orders ?No future orders Vital Signs Height 152 cm Weight 46.6 kg BMI 20.17 kg/m2 Blood Pressure 134 mm Hg/82 mm Hg Temperature Pulse Rate 99 bpm Respiratory Rate 02 Sat Mode of Delivery 99 %/ You can now view a summary of your hospital visit from the comfort of your home through a free online portal called [employer]. [employer] is a website that allows you to securely view your medical information including discharge summary, medications and follow-up visits. ??You can alsosend a secure electronic message to your doctor???s office to request appointments, renew medications or just ask a question. You can enroll at [email or web address] or register during your next office visit. [...] primary care provider, you may find a [facility] provider by calling [facility] [email or web address] Link at [phone]. [facility], in keeping with [facility] guidance, no longer requires face masks for [...] Care Team Personnel Name: Yin Hsu Position: [facility] Onco RN Member Role: Primary Care Nurse Name: Ruma Bravo MD Position: [facility] Physician - Primary Care Member Role: PCP Address: Address: [address] [place] [address] Name: Shikha Rivera RN Position: [facility] RN Member Role: Primary Care Nurse Name: Cherry Olsen MD Position: [facility] CERTIFIED PARALEGAL MD Member Role: Lifetime CERTIFIED PARALEGAL Physician Address: Address: [address] [place] [address] Women's Health J2E[employer] Software Engineer - [address] Name: Maeve Jones RN Position: [facility] RN Member Role: Primary Care Nurse Care Team Related Persons Name: MEG MARTIN Address: [address] [address] Name: JAKE RODRIGUES Address: [place] [address]
--- OUTSIDE RECORDS SUMMARY | 2023-05-02 12:14 | XMS_ITS | Continuity of Care Document ---
Author Name Unknown Organization [facility] Address [address] [place] [address]- Care Team Providers Care President Consumer Electronics Company Name Role Phone Rahat GERBER, Gaye Macias Primary Care Physician ( [phone] Encounter [facility] Date(s): 01/23/22 - 02/22/22 [facility] [address] [place] [address]- Allergies, Adverse Reactions, Alerts Substance Reaction Severity [...] rash Active Cats Active Contrast Dye Active [place] Active Dogs Active Dust Active Horses Active [...] 01/22/22 15:19:00 EDT, Route to Pharmacy Electronically, [id number], Partialfill upon patient request if the prescription [...] Name: Gaye Giang MD Address: Address: [address] [place], [place] [address]
--- OUTSIDE RECORDS SUMMARY | 2023-05-02 12:14 | XMS_ITS | Continuity of Care Document ---
Author Name Unknown Organization [facility] Address [address] [address]- Care Team Providers Care End Stapler Name Role Phone Yolanda Fischer MD Primary Care Physician Encounter [facility] [id number] Date(s): 07/28/19 - 10/19/19 [facility] [address] [address]- [place] Attending Physician: Angel Ivey MD [...] Active Adhesive Bandage rash Active Cats Active [place] Active Dogs Active Dust Active Horses Active [...] stasis(Confirmed) Active 1Dr Melo rheum 2Dr Soco flow floor attendant multiple food and drug allergies 3[facility] 4colonoscopy 06/21/2019 removed 4 polyps. if positive for ca will need colon resection Social History Social History Type Response Smoking Status Never (less than 100 in lifetime) entered on: 05/30/19 Sex Female
--- OUTSIDE RECORDS SUMMARY | 2023-05-02 12:14 | XMS_ITS | Continuity of Care Document ---
Author Name Unknown Organization [facility] Address [address] [place] [address]- Care Team Providers Care Train Operations Supervisor Name Role Phone Rahat GERBER, Gaye Macias Primary Care Physician Encounter [facility] Date(s): 07/29/22 - 08/05/22 [facility] [address] [place] [address]- Encounter Diagnosis Edema leg(Discharge Diagnosis) - 07/29/22 Sore throat(Discharge Diagnosis) - 07/29/22 Elevated blood pressure reading without diagnosis of hypertension(Discharge Diagnosis) - 07/29/22 MGUS (monoclonal gammopathy of unknown significance)(Discharge Diagnosis) - 07/29/22 Attending Physician: Rahat GERBER, aGye Macias Allergies, Adverse Reactions, Alerts Substance Reaction Severity Status atenolol Active codeine Active penicillin Active predniSONE Allergy to sulfa drugs Activ e shellfish Active ibuprofen Active aspirin Active doxycycline 1 Moderate Active tetracycline Active clindamycin Active erythromycin Active amoxicillin Active sulfa drugs Active sulfADIAZINE All sulfa drugs Active metoprolol Active caffeine Active Benadryl, Topical 2 Active Keflex Active Fosamax Active Cefzil Active Tums Active Augmentin Active Levaquin Active Tylenol Active Contrast Dye Active Dogs Active Dust Active Horses Active Mold Active Nuts Active Cleocin T Active Bactrim Active Biaxin XL Active Adhesive Bandage rash Active Cats Active [place] Active Latex rash Active Other Food Allergy [...] Instructions Replace Required Details, Route to PharmacyElectronically, [facility] #[id number], 150, c... Start Date: 06/24/22 Status: Ordered lisinopril 5 mg oral tablet 5 mg, 1, tablet, By Mouth, Daily, new start 01/22/22, # 30 tablet, Refills 2, Tot. Refills 2, Maintenance, 01/22/22 15:19:00 EDT, Route to Pharmacy Electronically, [facility] #[id number], Partialfill upon patient request if the prescription [...] Effective Dates Health Status Clinical Service Informant Edema leg Discharge Diagnosis 07/29/22 Sore throat Discharge Diagnosis 07/29/22 Elevated blood pressure reading without diagnosis of hypertension Discharge Diagnosis 07/29/22 MGUS (monoclonal gammopathy of unknown significance) Discharge Diagnosis 07/29/22 Vital Signs Most recent to oldest [Reference Range]: 1 Height 150 cm (07/29/22 10:13 AM) Weight 46 kg (07/29/22 10:13 AM) Oxygen Saturation [94-100 %] 98 % (07/29/22 10:13 AM) Pulse Rate [55-90 bpm] 87 bpm (07/29/22 10:13 AM) Body Mass Index [18.5-24.99 kg/m2] 20.44 kg/m2 (07/29/22 10:13 AM) Blood Pressure [90-138/55-84 mm Hg] 125/ 74mm Hg (07/29/22 10:13 AM) Blood pressure sites Arm, right (07/29/22 10:13 AM) Weight Obtained Via Patient/family state d (07/29/22 10:13 AM) Social History Social History Type Response Smoking Status Never (less than 100 in lifetime) entered on: 05/30/19 Sex Patient Care team information Care Team Personnel Name: Yin Hsu Position: [facility] Onco RN Member Role: Primary Care Nurse Name: Gaye Giang MD Position: [facility] Primary Care Physician Member Role: PCP Address: Address: [address] [place] [email or web address]] Name: Consuelo Louis RN Position: [facility] RN Member Role: Primary Care Nurse Name: Cherry Olsen MD Position: [facility] BALANCE CLERK MD Member Role: Lifetime BALANCE CLERK Physician Address: Address: [address] [place], [place] [address] [facility] [place]pping [place] [address]- Name: Maeve Jones RN Position: [facility] RN Member Role: Primary Care Nurse Care Team Related Persons Name: MEG MARTIN Address: [address] [address] Name: JAKE RODRIGUES Address: [place] [address]
--- OUTSIDE RECORDS SUMMARY | 2023-05-02 12:14 | XMS_ITS | Continuity of Care Document ---
Author Name Unknown Organization [facility] Address [address] [place] [address]- Care Team Providers Care Grease Cup Filler Name Role Phone Yolanda Fischer MD Primary Care Physician Encounter [facility] Date(s): 12/09/19 - 01/08/20 [facility] [address] [place] [address] Allergies, Adverse Reactions, Alerts Substance Reaction [...] rash Active Cats Active Contrast Dye Active [place] Active Dogs Active Dust Active Horses Active [...] stasis(Confirmed) Active 1Dr Melo rheum 2Dr Soco verifying specialist multiple food and drug allergies 3[facility] 4colonoscopy 06/21/2019 removed 4 polyps. if positive for ca will need colon resection Social History Social History Type Response Smoking Status Never (less than 100 in lifetime) entered on: 05/30/19 Sex Female
--- OUTSIDE RECORDS SUMMARY | 2023-05-02 12:14 | XMS_ITS | Continuity of Care Document ---
Author Name Unknown Organization [facility] Address [address] [facility] [place] [address]- Care Team Providers Care Gaggerman Name Role Phone Ruma Bravo MD Primary Care Physician Encounter 08/04/22 - 09/19/22 [facility] [address] [facility], [address] [place] [address]- Attending Physician: Laury Espinosa MD Admitting Physician: [...] rash Active Cats Active Contrast Dye Active [place] Active Dogs Active Dust Active Horses Active [...] opioid drug. Start Date: 05/29/22 Status: Ordered ibandronate 150 mg oral tablet 1 tablet = 150 mg, By Mouth, Every 30 days, Swallow whole w/6-8oz water 1HR before first food, drink, med-Do not lie down for 1HR & until after first food, # 3 tablet, 2 Refills, Maintenance, 09/08/22 10:06:00 EDT, Tablet, [facility] #[id number],... Start Date: 09/08/22 Status: Ordered lisinopril 5 mg oral tablet 5 mg, 1, tablet, By Mouth, Daily, new start 01/22/22, # 30 tablet, Refills 2, Tot. Refills 2, Maintenance, 01/22/22 15:19:00 EDT, Route to Pharmacy Electronically, [facility] #[id number], Partialfill upon patient request if the prescription is fo... Start Date: 01/22/22 Stop Date: 04/22/22 Status: Ordered lisinopril 5 mg oral tablet 5 mg, 1, tablet, By Mouth, Daily, # 90 tablet, Refills 1, Tot. Refills 1, Maintenance, 09/02/22 9:47:00 EDT, Route to Pharmacy Electronically, [facility] #[id number], 150, cm, 08/27/22 14:11:00 EDT, Height, 45.9, [...] Care Team Personnel Name: Yin Hsu Position: [facility] Onco RN Member Role: Primary Care Nurse Name: Ruma Bravo MD Position: [facility] Primary Care Physician Member Role: PCP Address: Address: [address] [place] [address] Family [place] [address] Name: Consuelo Louis RN Position: [facility] RN Member Role: Primary Care Nurse Name: Pretty GERBER, Cherry Gaines Position: [facility] PUDDLER HELPER MD Member Role: Lifetime PUDDLER HELPER Physician Address: Address: [address] [place] [address] Women's [place] [address]- Name: Maeve Jones RN Position: [facility] RN Member Role: Primary Care Nurse Care Team Related Persons Name: MEG MARTIN Address: home [address] [place] [address] Name: JAKE RODRIGUES Address: [place] [address]
--- OUTSIDE RECORDS SUMMARY | 2023-05-02 12:14 | XMS_ITS | Continuity of Care Document ---
Author Name Unknown Organization [facility] Address [address] [place] [address]- Care Team Providers Care Professional Employer Consultant Name Role Phone Patti HARDEN, Shandra Lance Primary Care Physician Encounter [facility] Date(s): 03/12/21 - 04/11/21 [facility] [address] [place] [address]- Allergies, Adverse Reactions, Alerts Substance Reaction Severity [...] rash Active Cats Active Contrast Dye Active [place] Active Dogs Active Dust Active Horses [...] each, 2 Refills, Maintenance, 12/25/20 10:09:00 EDT, [email or web address][id number], Partial fill upon patient request if the prescription is for a schedule II opioid drug., 150, cm, 12/25/20 9:32:00 EDT, H... Start Date: 12/25/20 Status: Ordered linezolid 600 mg oral tablet 1 tablet = 600 mg, By Mouth, Every 12 hours, for 7 days, # 14 tablet, 0 Refills, Acute 04/18/21 10:16:00 EST, 04/11/21 10:16:00 EST, Tablet, [facility] #[id number], Partial fill upon patient request if the prescription is for a schedule II opioid... Start Date: 04/11/21 Stop Date: 04/18/21 Status: Ordered Problem List Condition Effective Dates [...] stasis(Confirmed) Active 1Dr Melo rheum 2Dr Soco load out supervisor multiple food and drug allergies 3[facility] [...]
--- OUTSIDE RECORDS SUMMARY | 2023-05-02 12:14 | XMS_ITS | Continuity of Care Document ---
Author Name Unknown Organization [facility] Address [address] [place] [address]- Care Team Providers Care Smooth Plater Name Role Phone Rahat GERBER, Gaye Macias Primary Care Physician ( [phone] Encounter [facility] Date(s): 10/02/21 - 11/01/21 [facility] [address] [place] [address]- Allergies, Adverse Reactions, Alerts Substance Reaction Severity [...] rash Active Cats Active Contrast Dye Active [place] Active Dogs Active Dust Active Horses Active [...]
--- OUTSIDE RECORDS SUMMARY | 2023-05-02 12:14 | XMS_ITS | Continuity of Care Document ---
Author Name Unknown Organization [facility] Address [address] [place] [address]- Care Team Providers Care Investment Banking Analyst Name Role Phone Patti HARDEN, Shandra Lance Primary Care Physician [phone] [place] [facility] [place] [facility] [address] [place] [address]- Attending Physician: Satya Meraz DO Referring Physician: Amado GERBER, Yolanda Lance Allergies, Adverse Reactions, Alerts Substance Reaction Severity [...] rash Active Cats Active Contrast Dye Active [place] Active Dogs Active Dust Active Horses Active Latex rash Active Mold Active Nuts Active Pork Active Soy Products Active fentaNYL Active Bactrim Active 1Rash 2rash 3Pt States she tolerates [...] each, 2 Refills, Maintenance, 12/25/20 10:09:00 EDT, [facility] #[id number], Partial fill upon patient request if the [...] kit, 0 Refills, Maintenance, 01/14/21 12:14:00 EDT, [facility] #[id number], Partial fill upon patient request if the [...] stasis(Confirmed) Active 1Dr Melo rheum 2Dr Soco parts back counter man multiple food and drug allergies 3[facility] 4colonoscopy 06/21/2019 removed 4 polyps. if positive for ca will need colon resection 5Late April 2020 6Pt. had 2nd Pfizer vaccine on 09/19 and pain in her L hand on 10/07. Social History Social History Type Response Smoking Status Never (less than 100 in lifetime) entered on: 05/30/19 Sex
--- OUTSIDE RECORDS SUMMARY | 2023-05-02 12:14 | XMS_ITS | Continuity of Care Document ---
Author Name Unknown Organization [facility] Address [address] [place] [address]- Care Team Providers Care Filling Carrier Name Role Phone Lawrence GERBER, Ruma Bauer Primary Care Physician Encounter 07/30/22 - 09/26/22 [facility] [place] [address], [address] [place] [address]- Attending Physician: Rahat GERBER, Gaye Macias Admitting Physician: Raaht GERBER, Gaye Macias Referring Physician: Rahat GERBER, Gaye Macias Allergies, Adverse [...] rash Active Cats Active Contrast Dye Active [place] Active Dogs Active Dust Active Horses Active [...] 2 Refills, Maintenance, 09/08/22 10:06:00 EDT, Tablet, [facility] #[id number],... Start Date: 09/08/22 Status: Ordered lisinopril 5 mg oral tablet 5 mg, 1, tablet, By Mouth, Daily, new start 01/22/22, # 30 tablet, Refills 2, Tot. Refills 2, Maintenance, 01/22/22 15:19:00 EDT, Route to Pharmacy Electronically, [facility] #[id number], Partialfill upon patient request if the prescription is fo... Start Date: 01/22/22 Stop Date: 04/22/22 Status: Ordered lisinopril 5 mg oral tablet 5 mg, 1, tablet, By Mouth, Daily, # 90 tablet, Refills 1, Tot. Refills 1, Maintenance, 09/02/22 9:47:00 EDT, Route to Pharmacy Electronically, [facility] #[id number], 150, cm, 08/27/22 14:11:00 EDT, Height, 45.9, [...] Care Team Personnel Name: Yin Hsu Position: [facility] Onco RN Member Role: Primary Care Nurse Name: Ruma Bravo MD Position: [facility] Physician - Primary Care Member Role: PCP Address: Address: [address] [place] [address] [place] [address]- Name: Cherry Olsen MD Position: [facility] RETINA SUBSPECIALIST MD Member Role: [employer] RETINA SUBSPECIALIST Physician Address: Address: [address] [facility] Freelance Writer - [place], [place] - Name: Maeve Jones RN Position: [facility] RN Member Role: Primary Care Nurse Care Team Related Persons Name: MEG MARTIN Address: home [address] [place] [id number] Name: JAKE RODRIGUES Address: [place] [address]
--- OUTSIDE RECORDS SUMMARY | 2023-05-02 12:14 | XMS_ITS | Continuity of Care Document ---
Author Name Unknown Organization [facility] Address [address] [place] [address]- Care Team Providers Care Flooring Helper Name Role Phone Yolanda Fischer MD Primary Care Physician Encounter [facility] [place] Date(s): 10/05/20 - 11/04/20 [facility] [address] [place] [address]- Allergies, Adverse Reactions, Alerts Substance Reaction Severity [...] rash Active Cats Active Contrast Dye Active [place] Active Dogs Active Dust Active Horses Active [...] 10/31/20 8:40:00 EDT, Tablet, [facility][id number], Partial fill upon patient request if the [...] stasis(Confirmed) Active 1Dr Melo rheum 2Dr Soco wirer passenger car multiple food and drug allergies 3[facility] 4colonoscopy 06/21/2019 removed 4 polyps. if positive for ca will need colon resection Social History Social History Type Response Smoking Status Never (less than 100 in lifetime) entered on: 05/30/19 Sex
--- OUTSIDE RECORDS SUMMARY | 2023-05-02 12:14 | XMS_ITS | Continuity of Care Document ---
Author Name Unknown Organization [facility] Address [address] [place] [address]- Care Team Providers Care Recreational Therapist Name Role Phone Lawrence GERBER, Ruma Bauer Primary Care Physician [place] [facility] [place](s): 11/05/22 - 12/05/22 [facility] [address] [place] [address]- Allergies, Adverse Reactions, Alerts Substance Reaction Severity [...] rash Active Cats Active Contrast Dye Active [place] Active Dogs Active Dust Active Horses Active [...] 2 Refills, Soft Stop, 10/15/22 14:04:00 EDT, [facility][id number], Partial fill upon patient request if the [...] 11/03/22 16:12:00 EDT, Route to Pharmacy Electronically, [facility] #[id number], Partial fill upon patient request if the [...] 2 Refills, Maintenance, 09/08/22 10:06:00 EDT, Tablet, [facility] #[id number],... Start Date: 09/08/22 Status: Ordered lisinopril 5 mg oral tablet 5 mg, 1, tablet, By Mouth, Daily, # 90 tablet, Refills 1, Tot. Refills 1, Maintenance, 09/02/22 9:47:00 EDT, Route to Pharmacy Electronically, [facility] #[id number], 150, cm, 08/27/22 14:11:00 EDT, Height, 45.9, [...] Refills, Soft Stop, 11/03/22 16:11:00 EDT, Tablet, [facility] #[id number], Partial fill upon patient request if the [...] Team Personnel Name: Shadi , Yin Position: [facility] Onco RN Member Role: Primary Care Nurse Name: Ruma Bravo MD Position: [facility] Physician - Primary Care Member Role: PCP Address: Address: [address] [place] [address] Family Medicine [address] Name: Pretty GERBER, Cherry Gaines Position: [facility] MEDICAL TYPIST MD Member Role: Lifetime MEDICAL TYPIST Physician Address: Address: [address] [place] [address] Women's Health Gamma Facilities Operator [address] Name: Maeve Jones RN Position: [facility] RN Member Role: Primary Care Nurse Care Team Related Persons Name: MEG MARTIN Address: home [address] [place] [id number] Name: JAKE RODRIGUES Address: [place] [address]
--- OUTSIDE RECORDS SUMMARY | 2023-05-02 12:14 | XMS_ITS | Continuity of Care Document ---
Author Name Unknown Organization [facility] Address [address] [place] [address]- Care Team Providers Care Coffee Grinder Name Role Phone Rahat GERBER, Gaye Macias Primary Care Physician En[place] [facility] [place] 10/03/21 - 11/07/21 [facility] [address] [place] [address]- Attending Physician: Zuleima HARDEN, Olivia Allergies, Adverse [...] rash Active Cats Active Contrast Dye Active [place] Active Dogs Active Dust Active Horses Active [...]
--- OUTSIDE RECORDS SUMMARY | 2023-05-02 12:14 | XMS_ITS | Continuity of Care Document ---
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 if positive for ca will need colon resection Social History Social History Type Response Smoking Status Never (less than 100 in lifetime) entered on: 05/30/19 Sex
--- OUTSIDE RECORDS SUMMARY | 2023-05-02 12:14 | XMS_ITS | Continuity of Care Document ---
Author Name Unknown Organization [facility] [place] [address] [address]- Care Team Providers Care Shade Hanger Name Role Phone Yolanda Fischer MD Primary Care Physician [place] [facility] [place] 11[place]10/20 [facility] [address] [address]- Attending Physician: Will Wilson Admitting Physician: Admtr, [...] rash Active Cats Active Contrast Dye Active [place] Active Dogs Active Dust Active Horses Active [...] 11/16/20 7:37:00 EDT, 11/06/20 7:37:00 EDT, Tablet, [facility], Partial fill upon patient [...] stasis(Confirmed) Active 1Dr Melo rheum 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 if positive for ca will need colon resection Social History Social History Type Response Smoking Status Never (less than 100 in lifetime) entered on: 05/30/19 Sex
--- OUTSIDE RECORDS SUMMARY | 2023-05-02 12:14 | XMS_ITS | Continuity of Care Document ---
Author Name Unknown Organization [facility] Address [address] [place] [address]- Care Team Providers Care Supervisor Finish End Name Role Phone Yolanda Fischer MD Primary Care Physician [place] [facility] [place] - 10/31/[address] [address]- Encounter Diagnosis Cellulitis(Final) - 10/31/20 Discharge Disposition: A-D/C Home Attending Physician: Brian Medeiros MD Admitting Physician: Brian Medeiros MD Referring Physician: Not on Staff, Referring [...] rash Active Cats Active Contrast Dye Active [place] Active Dogs Active Dust Active Horses Active [...] capsule, 1 Refills, Maintenance, 04/17/20 10:01:00 EST, [facility] #[id number], [place]... Start Date: 04/17/20 Status: Ordered linezolid 600 mg oral tablet 1 tablet = 600 mg, By Mouth, Every 12 hours, for 10 days, # 20 tablet, 0 Refills, Acute 11/10/20 8:40:00 EDT, 10/31/20 8:40:00 EDT, Tablet, [facility] #[id number], Partial fill upon patient request if the prescription is for a schedule II opioid... 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 if positive for ca will need colon resection Results Radiology Reports * Exam Date Time Procedure Performing Provider Status 10/31/20 8:50 AM Hand Min 3 Views Left Jey Nascimento; Auth (Verified) Notes: (Hand Min 3 Views Left) Reason For Exam: Pain RESULT: Hand Min 3 Views Left Hand Min 3 Views Left, 3 views Hx of Present Illness: Pt reporting increased L hand and wrist pain, redness and swelling x 4 days,was recently seen and treated with IV antibiotics this month for cellulitis, denies other sx; Reason: Pain; Clinical Question(s): Osteomyelitis COMPARISON: 10/10/2020. FINDINGS: No fractures or bone lesions. Moderate joint space narrowing and subchondral sclerosis involving the first carpometacarpal joint and the DIP joints of the second and third digits. Normal soft tissues. IMPRESSION: Degenerative changes. No acute abnormality. WSN: [id number] Ordering Physician: Brian Medeiros Dictated By: Mariano Canada MD Dictated Date/Time: 10/31/20 9:07 am Reviewed By: Mariano Canada MD Signed By: Mariano Canada MD Signed Date/Time: 10/31/20 9:07 am Transcribed By: KELVIN Transcribed Date/Time: 10/31/20 9:03 am Vital Signs Most recent to oldest [Reference Range]: 1 2 3 Oxygen Saturation [94-100 %] 99 % (10/31/20 2:40 PM) 99 % (10/31/20 12:00 PM) 100 % (10/31/20 10:12 AM) Pulse Rate [55-90 bpm] 96 bpm *H* (10/31/20 2:40 PM) 93 bpm *H* (10/31/20 12:00 PM) 99 bpm *H* (10/31/20 10:12 AM) Blood Pressure [90-138/55-84 mm Hg] 143/80mm Hg *H* (10/31/20 2:40 PM) 139/79mm Hg *H* (10/31/20 12:00 PM) 145/75mm Hg *H* (10/31/20 10:12 AM) Respiratory Rate [16-30 br/min] 18 br/min (10/31/20 2:40 PM) 18 br/min (10/31/20 12:00 PM) 17 br/min (10/31/20 10:12 AM) Temperature [96.8-100.4 DegF] 98.8 DegF (10/31/20 10:12 AM) 98.5 DegF (10/31/20 6:23 AM) Liters per Minute 0 L/min (10/31/20 10:12 AM) Mode of Delivery (Oxygen) Room air (10/31/20 2:40 PM) Room air (10/31/20 12:00 PM) Room air (10/31/20 10:12 AM) Blood pressure sites Arm, right (10/31/20 2:40 PM) Arm, right (10/31/20 12:00 PM) Arm, right (10/31/20 10:12 AM) Temperature Route Oral (10/31/20 10:12 AM) Oral (10/31/20 6:23 AM) Social History Social History Type Response Smoking Status Never (less than 100 in lifetime) entered on: 05/30/19 Sex
--- OUTSIDE RECORDS SUMMARY | 2023-05-02 12:15 | XMS_ITS | Continuity of Care Document ---
Author Name Unknown Organization [facility] Address [address] [address]- Care Team Providers Care Accounts Payable Bookkeeper Name Role Phone Yolanda Fischer MD Primary Care Physician En[place] [facility] [place] Date(s): 09/11/20 - 10/11/20 [facility] [address] [address] [place] Allergies, Adverse Reactions, Alerts Substance Reaction Severity Status atenolol Active codeine Active ibuprofen Active doxycycline 1 Moderate Active tetracycline Active erythromycin Active penicillin Active sulfADIAZINE All sulfa drugs Active metoprolol Active aspirin Active caffeine Active shellfish Active Benadryl, Topical Active Keflex Active Cleocin T Active Fosamax Active Cefzil Active Tums Active Levaquin Active Tylenol Active Bactrim Active Biaxin XL Active Adhesive Bandage rash Active Cats Active Contrast Dye Active [place] Active Dogs Active Dust Active Horses Active [...] 3 capsule, 1 Refills, Maintenance, 04/17/20 10:01:00 [facility][id number], [facility]... 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 if positive for ca will need colon resection Social History Social History Type Response Smoking Status Never (less than 100 in lifetime) entered on: 05/30/19 Sex Female
--- OUTSIDE RECORDS SUMMARY | 2023-05-02 12:15 | XMS_ITS | Continuity of Care Document ---
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 if positive for ca will need colon resection Social History Social History Type Response Smoking Status Never (less than 100 in lifetime) entered on: 05/30/19 Sex Female
--- OUTSIDE RECORDS SUMMARY | 2023-05-02 12:15 | XMS_ITS | Continuity of Care Document ---
Author Name Unknown Organization [facility] Address [address] [address]- Care Team Providers Care Polysom Tech Name Role Phone Rahat GERBER, Gaye Macias Primary Care Physician [place] [facility] [place]/22 [facility] [address] [address] Encounter Diagnosis Elevated blood pressure reading without diagnosis of hypertension(Discharge Diagnosis) - 07/14/22 LBBB - Left bundle branch block(Discharge Diagnosis) - 07/14/22 Attending Physician: Savanah Charlton Admitting Physician: Savanah Charlton Referring Physician: Savanah Charlton Allergies, Adverse Reactions, Alerts Substance Reaction Severity Status atenolol Active codeine Active amoxicillin Active penicillin Active predniSONE Allergy to sulfa drugs Activ e caffeine Active ibuprofen Active aspirin Active doxycycline 1 Moderate Active tetracycline Active clindamycin Active erythromycin Active sulfADIAZINE All sulfa drugs Active metoprolol Active sulfa drugs Active shellfish Active Benadryl, Topical 2 Active Keflex Active Cleocin T Active Cefzil Active Tums Active Augmentin Active Levaquin Active Tylenol Active Biaxin XL Active Cats Active [place] Active Dogs Active Dust Active Horses Active Mold Active Nuts Active Fosamax Active Bactrim Active Adhesive Bandage rash Active Contrast Dye Active Latex rash Active [...] Instructions Replace Required Details, Route to PharmacyElectronically, [facility] #[id number], 150, c... Start Date: 06/24/22 Status: Ordered lisinopril 5 mg oral tablet 5 mg, 1, tablet, By Mouth, Daily, new start 01/22/22, # 30 tablet, Refills 2, Tot. Refills 2, Maintenance, 01/22/22 15:19:00 EDT, Route to Pharmacy Electronically, [facility] #[id number], Partialfill upon patient request if the prescription [...] Effective Dates Health Status Clinical Service Informant Elevated blood pressure reading without diagnosis of hypertension Discharge Diagnosis 07/14/22 LBBB - Left bundle branch block Discharge Diagnosis 07/14/22 Vital Signs Most recent to oldest [Reference Range]: 1 Height 150 cm (07/14/22 9:32 AM) Weight 45.8 kg (07/14/22 9:32 AM) Oxygen Saturation [94-100 %] 100 % (07/14/22 9:32 AM) Pulse Rate [55-90 bpm] 102 bpm *H* (07/14/22 9:32 AM) Body Mass Index [18.5-24.99 kg/m2] 20.36 kg/m2 (07/14/22 9:32 AM) Blood Pressure [90-138/55-84 mm Hg] 141/ 69mm Hg *H* (07/14/22 9:32 AM) Blood pressure sites Arm, left (07/14/22 9:32 AM) Weight Obtained Via Standing scale (07/14/22 9:32 AM) Social History Social History Type Response Smoking Status Never (less than 100 in lifetime) entered on: 05/30/19 Sex Cardiology Outpatient Note * Savanah Charlton: PERFORM Event Display: Cardiology Note Office Authored Date: [id number] Patient: ??NAUN MARTIN ? Age:??77 Years?Sex:??Female?:??1945?? Patient Hx Provider Clinical Summary ?? Assessment:?? Naun is a pleasant 77-year-old woman with no known cardiac issues and a chronic left bundle branch block who was having issues with mild breathlessness since resolved.? Plan: Hypertension:??Intermittent, blood pressure stable today. Chronic left bundle branch block pattern ?Naun has no concerning cardiac issues. ??She is following up with Dr. Merced Antunez to review some??recent vascular testing. ?? Repeat echo in??Sptember??with follow-up office visit??to discuss. ?? Thank you for allowing us to participate in her care. Savanah Vincent PA-C History of Present Illness/Interval History Naun has had a complicated course since I saw her??last fall.?? She had??a diagnosis of cellulitis and was??an inpatient from December 02 to December 16 getting??IV vancomycin.?? She was able to have her??GI surgery with Dr. Loyola in January??at [facility] but unfortunately had issues with wound healing. ??The wound was excised once in the emergency room and again in Dr. Loyola's office,??[facility] at[facility]up until 04/07/2022. May 03, 2022 she was treated with??linezolid??for lower extremity cellulitis.?? She was reevaluated??at [facility] on May 21, 2022??for??question of cellulitis on the right ankleand heel.?? She does have an appointment today with Dr. Giang??to discuss this further. ??She alsohas an appointment??next week with Dr. Merced Antunez??to go over some recent vascular testing. She had no real cardiac concerns today??and has not had recent issues??with chest discomfort, breathlessness, lightheadedness, or syncope. ?? I was able to review all notes from??her May 21, 2022 [facility] emergency visit,??her lower extremities were only mildly swollen with??full range of motion and??normal capillary refill.?? H&H was 13.6 and 40.4??with a WBC of 6.5??and platelets of??143. ??LFTs within normal limits??BMP within normal limits. Review of Systems Reviewed,??pertinent positives mentioned in HPI Physical Exam Vitals & Measurements IL:??102?? BP:??141/69?? SpO2:??100%?? HT:??150??cm?? WT:??45.8??kg?? BMI:??20.36?? Weight lb/oz: 100 lb 16 oz Deferred for discussion and chart review Assessment/Plan 1.??Elevated blood pressure reading without diagnosis of hypertension 2.??LBBB - Left bundle branch block stable Total Time Spent I personally spent a total of??40 minutes, including both hkyl-jn-vhdu and hop-ixur-mz-face time onthe date of the encounter, addressing the above diagnoses. Allergies doxycycline Adhesive Bandage??(rash) Augmentin Bactrim Benadryl, Topical Biaxin XL Cats Cefzil Cleocin T Contrast Dye [place] Dogs Dust Fosamax Horses Keflex Latex??(rash) Levaquin Mold Nuts Other Food Allergy??(chicken broccoli, other veggetables tomatoes onions cucumbers lettuce peas carrots, wheat rash hives itchy) Soy Products Tums Tylenol amoxicillin aspirin atenolol caffeine clindamycin codeine erythromycin fentaNYL ibuprofen metoprolol penicillin predniSONE??(Allergy to sulfa drugs) shellfish sulfADIAZINE??(All sulfa drugs) sulfa drugs tetracycline Home Medications Cane, See Instructions, Dx foot pain EpiPen 2-Jerman, 0.3 mg, Intramuscular, Once lisinopril 5 mg oral tablet, See Instructions, 1 refills, TAKE 1 TABLET BY MOUTH DAILY NEW. START 01/22/22 lisinopril 5 mg oral tablet, 5 mg= 1 tablet, By Mouth, Daily, 2 refills, new start 01/22/22 Omeprazole, 40 mg, By Mouth, Daily Lab Results Cardiology Labs WBC: 6.2 k/mm3 (07/01/22) RBC:??5.51 m/mm3??High (07/01/22) Hgb: 15.1 Gm/dL (07/01/22) Hct:??46.4 %??High (07/01/22) MCV: 84.2 femtoliters (07/01/22) MCH: 27.4 pg (07/01/22) MCHC:??32.5 g/dL??Low (07/01/22) Platelet Count: 314 k/mm3 (07/01/22) RDW-SD: 44.7 femtoliters (07/01/22) Nucleated RBC (Automated): 0 #/100 WBC'S (07/01/22) Abs. Neut: 4 k/mm3 (07/01/22) Abs. Lymph: 1.4 k/mm3 (07/01/22) Abs. Clay: 0.5 k/mm3 (07/01/22) Abs. Eo: 0.3 k/mm3 (07/01/22) Abs. Baso: 0.1 k/mm3 (07/01/22) Neut %: 63.7 % (07/01/22) Clay %: 7.6 % (07/01/22) Eos %: 4.5 % (07/01/22) Baso %: 0.8 % (07/01/22) Imm Gran: 0.2 % (07/01/22) Abs. Imm Gran: 0 k/mm3 (07/01/22) Sodium: 139 mmol/L (01/22/22) Potassium: 4.6 mmol/L (01/22/22) Chloride: 103 mmol/L (01/22/22) Bicarbonate Level: 24 mmol/L (01/22/22) Glucose Level: 94 mg/dL (01/22/22) BUN: 12 mg/dL (07/01/22) Creatinine-Blood: 0.6 mg/dL (07/01/22) Calcium: 10.3 mg/dL (07/01/22) Protein, Total: 7.1 Gm/dL (12/20/21) Albumin: 4.6 Gm/dL (12/20/21) Alkaline Phosphatase: 73 units/L (12/20/21) AST (SGOT): 20 units/L (12/20/21) ALT (SGPT): 16 units/L (12/20/21) Bilirubin, Total: 0.4 mg/dL (12/20/21) TSH: 3.62 uIU/mL (11/27/21) Free T4: 1.25 ng/dL (11/27/21) Diagnostic Impression ECG ECG 12-Lead ?? 14:11:27 Please click on pdf link to open report ?? Signed By: Radha Roman DO ?? ECG 12-Lead ?? 14:11:27 Ventricular Rate: 76 BPM Atrial Rate: 76 BPM P-R Interval: 138 ms QRS Duration: 130 ms Q-T Interval: 424 ms QTC Calculation(Bazett): 477 ms P Gardiner: 66 degrees R Gardiner: -28 degrees T Gardiner: 105 degrees Normal sinus rhythm Left bundle branch block Abnormal ECG When compared with ECG of 29-AUG-2021 10:31, Left bundle branch block is now Present Minimal criteria for Anteroseptal infarct are no longer Present Confirmed by RADHA ROMAN MD ([id number]) on 01/22/2022 6:14:08 PM ?? [place]: RADHA ROMAN MD ?? Signed By: Radha Roman DO Stress Test NM Myocard Perf SPECT Multi ?? 10:45:00 Summary Normal. No evidence of stress induced ischemia or prior myocardial infarction. Normal left ventricular ejection fraction, no wall motion abnormalities, normal chamber size. Low likelihood of hemodynamically significant coronary artery disease. Compared with report of study 2011 from there has been no change . [...] significant change. ?? Signature ?? Signed By: eLfty Plummer MD, Florencio Iglesias Problem List/Past Medical History Ongoing Abdominal pain, generalized Acid reflux Anxiety Arthritis Arthritis of carpometacarpal (CMC) joint of left thumb Change in bowel habits CMC arthritis Colonic polyp Elevated blood pressure reading without diagnosis of hypertension Fibromyalgia Hemorrhoids Hypothyroid Lab test positive for detection of COVID-19 virus LBBB - Left bundle branch block Low back pain radiating down leg Mass of cecum MGUS (monoclonal gammopathy of unknown significance) Multiple drug allergies Osteoporosis Rectal bleeding Vaccine reaction Venous stasis Historical Abdominal hysterectomy Cellulitis of finger, left section Diagnostic colonoscopy Epigastric pain Health maintenance examination Heartburn symptom History of - 1 miscarriage History of appendectomy History of tonsillectomy Procedure/Surgical History Colonoscopy: 06/21/19 Salpingectomy section Hysterectomy Colpotomy D&C - Dilatation and curettage Appendectomy Social History Alcohol Use: Current. Other: none., 05/30/2019 Use: Never., 03/19/2015 Electronic Cigarette/Vaping Electronic Cigarette Use: Never., 12/13/2020 Employment/School Status: Disabled, Retired. Other: Disabled due to Fibromyalgia 61y/o and now retired.., 05/30/2019 Exercise Self assessment: Poor condition. Other: Unable to walk much because of fall risk., 05/30/2019 Self assessment: Good condition. Regular exercise: Yes. Exercise type: Walking., 03/19/2015 Home/Environment Living situation: Home/Independent. Lives with: Spouse., 05/30/2019 Living situation: skilled nursing. Lives with: Spouse., 03/19/2015 Nutrition/Health Diet: Regular. Other: has lots of food allergies., 05/30/2019 Sexual Sexually involved in last 6 months: Yes. Other sexual concerns: 22 years.., 05/30/2019 Substance Abuse Use: Never., 05/30/2019 Use: Never., 03/19/2015 Tobacco Use: Never (less than 100 in lifetime)., 05/30/2019 Use: Never smoker. Tobacco user in household: No., 09/22/2013 Family History Mother: Cancer of ovary; Depression; Osteoporosis Sister: Depression Brother: Depression Patient Care team information Care Team Personnel Name: Yin Hsu Position: [facility] Onco RN Member Role: Primary Care Nurse Name: Rahat GERBER, Gaye Macias Position: [facility] Primary Care Physician Member Role: PCP Address: Address: [address] [place] [address] Name: Consuelo Louis RN Position: [facility] RN Member Role: Primary Care Nurse Name: Cherry Olsen MD Position: [facility] CORPORATE CLAIMS EXAMINER MD Member Role: Lifetime CORPORATE CLAIMS EXAMINER Physician Address: Address: [address] [place] [address] Women's Health Datastage Consultant - [address] Name: Maeve Jones RN Position: [facility] RN Member Role: Primary Care Nurse Care Team Related Persons Name: MEG MARTIN Address: [address] [address] Name: JAKE RODRIGUES Address: [place] [address]
--- OUTSIDE RECORDS SUMMARY | 2023-05-02 12:15 | XMS_ITS | Continuity of Care Document ---
Author Name Unknown Organization [facility] Address [address] [place] [address]- Care Team Providers Care Tobacco Packer Name Role Phone Lawrence GERBER, Ruma Bauer Primary Care Physician [place] [facility] [place] 01/07/23 [facility] [address] [place] [address]- Allergies, Adverse Reactions, Alerts Substance Reaction Severity [...] rash Active Cats Active Contrast Dye Active [place] Active Dogs Active Dust Active Horses Active [...] 12/17/22 11:48:00 EDT, Route to Pharmacy Electronically, [facility] #[id number], Partial fill upon patient request if the prescription is for a schedule II opioid... Start Date: 12/17/22 Stop Date: 01/16/23 Status: Ordered Cane See Instructions, # 1 each, Maintenance, Dx foot pain, 05/29/22 14:59:00 EST, Supply, 150, cm, 05/29/22 13:34:00 EST, Height, 54.1, kg, 06/04/21 9:38:00 EST, Dry Weight Start Date: 05/29/22 Status: Ordered diclofenac 1% topical gel 1 application, Topically, 4 times a day, PRN Pain , Moderate, # 100 Gm, 0 Refills, Maintenance, 12/17/22 11:48:00 EDT, [facility] #[id number], Partial fill upon patient request if the prescription is for a schedule II opioid drug., 152, cm,... Start Date: 12/17/22 Status: Ordered diclofenac 1% topical gel 1 application, Topically, 4 times a day, # 100 Gm, 0 Refills, Maintenance, 12/25/22 11:12:00 EDT, [facility] #[id number], Partial fill upon patient request if the prescription is for a schedule II opioid drug., 152, cm, 12/25/22 10:26:00 EDT... Start Date: 12/25/22 Status: Ordered diphenhydrAMINE 50 mg oral tablet 1 tablet = 50 mg, By Mouth, Once, [address] scan, # 1 tablet, 2 Refills, Soft Stop, 10/15/22 14:04:00 EDT, [facility] #[id number], Partial fill upon patient request if the [...] 11/03/22 16:12:00 EDT, Route to Pharmacy Electronically, [facility] #[id number], Partial fill upon patient request if the prescription is for a schedule II opi... Start Date: 11/03/22 Stop Date: 11/08/22 Status: Ordered gabapentin 100 mg oral capsule 100 mg, By Mouth, Daily at bedtime, # 30 capsule, Refills 0, Tot. Refills 0, Maintenance, 12/17/22 11:48:00 EDT, Route to Pharmacy Electronically, [facility] #[id number], Partial fill upon patient request if the [...] 2 Refills, Maintenance, 09/08/22 10:06:00 EDT, Tablet, [facility] #[id number],... Start Date: 09/08/22 Status: Ordered lisinopril 5 mg oral tablet 5 mg, 1, tablet, By Mouth, Daily, # 90 tablet, Refills 1, Tot. Refills 1, Maintenance, 09/02/22 9:47:00 EDT, Route to Pharmacy Electronically, [facility] #[id number], 150, cm, 08/27/22 14:11:00 EDT, Height, 45.9, [...] Care Team Personnel Name: Yin Hsu Position: [facility] Onco RN Member Role: Primary Care Nurse Name: Ruma Bravo MD Position: [facility] Physician - Primary Care Member Role: PCP Address: Address: [address] [place] [id number] Name: Shikha Rivera RN Position: [facility] RN Member Role: Primary Care Nurse Name: Cherry Olsen MD Position: [facility] DIVERSIFIED CROPS FARMER MD Member Role: Lifetime DIVERSIFIED CROPS FARMER Physician Address: Address: [address] [place] [address] Women's [facility] [employer] [place] [address]- Name: Maeve Jones RN Position: [facility] RN Member Role: Primary Care Nurse Care Team Related Persons Name: MEG MARTIN Address: home [address] [place] [id number] Name: JAKE RODRIGUES Address: [place] [address]
--- OUTSIDE RECORDS SUMMARY | 2023-05-02 12:15 | XMS_ITS | Continuity of Care Document ---
Author Name Unknown Organization [facility] Address [address] [place] [address]- Care Team Providers Care Cook Cold Meat Name Role Phone Yolanda Fischer MD Primary Care Physician Encounter [facility] Date(s): 11/07/20 - 12/07/20 [facility] [address] [place] [address]- Allergies, Adverse Reactions, Alerts Substance Reaction Severity [...] Active Cats Active Contrast Dye Active [place] Active Dogs Active Dust Active Horses Active [...] stasis(Confirmed) Active 1Dr Melo rheum 2Dr Soco or director multiple food and drug allergies 3[facility] 4colonoscopy 06/21/2019 removed 4 polyps. if positive for ca will need colon resection Social History Social History Type Response Smoking Status Never (less than 100 in lifetime) entered on: 05/30/19 Sex
--- OUTSIDE RECORDS SUMMARY | 2023-05-02 12:15 | XMS_ITS | Continuity of Care Document ---
Author Name Unknown Organization [facility] Address [address] [address]- Care Team Providers Care Ball Holder Name Role Phone Patti HARDEN, Shandra Lance Primary Care Physician [place] [facility] [place] [place] [id number] Date(s): 02/11/21 - 03/29/21 [facility] [address] [address]- Attending Physician: Savanah Charlton Admitting Physician: Savanah [...] rash Active Cats Active Contrast Dye Active [place] Active Dogs Active Dust Active Horses Active [...] each, 2 Refills, Maintenance, 12/25/20 10:09:00 EDT, [facility] #[id number], Partial fill upon patient request if the [...] kit, 0 Refills, Maintenance, 01/14/21 12:14:00 EDT, [facility] #[id number], Partial fill upon patient request if the [...] stasis(Confirmed) Active 1Dr Melo rheum 2Dr Soco store merchandiser multiple food and drug allergies 3[facility] 4colonoscopy 06/21/2019 removed 4 polyps. if positive for ca will need colon resection 5Late April 2020 6Pt. had 2nd Pfizer vaccine on 09/19 and pain in her L hand on 10/07. Social History Social History Type Response Smoking Status Never (less than 100 in lifetime) entered on: 05/30/19 Sex
--- OUTSIDE RECORDS SUMMARY | 2023-05-02 12:15 | XMS_ITS | Continuity of Care Document ---
Author Name Unknown Organization [facility] Address [address] [place] [address]- Care Team Providers Care Vending Route Servicer Name Role Phone Yolanda Fischer MD Primary Care Physician Encounter [facility] Date(s): 07/14/19 - 09/02/19 [facility] [address] [place] [address]- [facility] Attending Physician: Miguel Ángel GERBER, Mazin Referring Physician: Yolanda Fischer MD Allergies, Adverse Reactions, Alerts Substance Reaction Severity Status atenolol Active codeine Active ibuprofen Active penicillin Active sulfADIAZINE All sulfa drugs Active aspirin Active caffeine Active Benadryl, Topical Active Keflex Active Cefzil Active tetracycline Active erythromycin Active shellfish Active metoprolol Active Cleocin T Active Fosamax Active Tums Active Levaquin Active Tylenol Active Bactrim Active Adhesive Bandage rash Active Cats Active [place] Active Dogs Active Dust Active Horses Active Mold Active Nuts Active Soy Products Active fentaNYL Active Latex rash Active Biaxin XL Active Pork Active Immunizations Given and Recorded Vaccine Date Status Refusal Reason tetanus-diphtheria toxoids (Td) 1 07/06/19 Given tetanus/diphtheria/pertussis, acel(Tdap) 2 01/25/10 Given 1Result Comment: wrong chart 2Admin Note: vis given 03-21-2008 Medications Cane See Instructions, # 1 each, Maintenance, use quad cane as needed, 08/24/19 15:23:00 EDT, Compound, 149.9, cm, 08/24/19 14:55:00 EDT, Height Start Date: 08/24/19 Status: Ordered clindamycin 300 mg oral capsule 1 capsule = 300 mg, By Mouth, Every 8 hours, for 10 days, # 30 capsule, 0 Refills, Acute 09/12/19 13:02:00 EDT, 09/02/19 13:02:00 EDT, Capsule, [facility] #[id number], 152, cm, 09/02/19 10:31:00EDT, Height, 48, kg, 09/02/19 10:31:00 EDT, Dry Weight Start Date: 09/02/19 Stop Date: 09/12/19 Status: Ordered Compression Stockings See Instructions, # [...] bleeding(Confirmed) Active 1Dr Melo rheum 2Dr Soco speed reading teacher multiple food and drug allergies 3[facility] 4colonoscopy 06/21/2019 removed 4 polyps. if positive for ca will need colon resection Social History Social History Type Response Smoking Status Never (less than 100 in lifetime) entered on: 05/30/19 Sex Female
--- OUTSIDE RECORDS SUMMARY | 2023-05-02 12:15 | XMS_ITS | Continuity of Care Document ---
Author Name Unknown Organization [facility] Address [address] [place] [address]- Care Team Providers Care Marine Air Ground Task Force Planners Name Role Phone Rahat GERBER, Gaye Macias Primary Care Physician Encounter [facility] Date(s): 01/22/22 - 01/29/22 [facility] [address] [place] [address]- Encounter Diagnosis Mass of cecum(Discharge Diagnosis) - 01/22/22 LBBB - Left bundle branch block(Discharge Diagnosis) - 01/22/22 Elevated blood pressure reading without diagnosis of hypertension(Discharge Diagnosis) - 01/22/22 Hypothyroid(Discharge Diagnosis) - 01/22/22 Multiple drug allergies-- followed by Dr Calderon as of 2021(Discharge Diagnosis) - 01/22/22 Acid reflux(Discharge Diagnosis) - 01/22/22 Cellulitis(Discharge Diagnosis) - 01/27/22 Attending Physician: Rahat GERBER, Gaye Macias Allergies, Adverse Reactions, Alerts Substance Reaction Severity Status atenolol Active codeine Active penicillin Active vancomycin 1 rash Persistent Mild Active ibuprofen Active aspirin Active doxycycline 2 Moderate Active tetracycline Active clindamycin Active erythromycin Active shellfish Active sulfADIAZINE All sulfa drugs Active metoprolol Active caffeine Active Benadryl, Topical 3 Active Keflex Active Fosamax Active Cleocin T Active Cefzil Active Tums Active Levaquin Active Tylenol Active Horses Active Latex rash Active Mold Active Nuts Active Soy Products Active fentaNYL Active Bactrim Active Biaxin XL Active Adhesive Bandage rash Active Cats Active [place] Active Contrast Dye Active Dogs Active Dust Active 1rash 2Rash 3Pt States she tolerates Benadryl by mouth [...] 01/22/22 15:19:00 EDT, Route to Pharmacy Electronically, [facility] #[id number], Partialfill upon patient request if the prescription [...] Effective Dates Health Status Clinical Service Informant Mass of cecum Discharge Diagnosis 01/22/22 LBBB - Left bundle branch block Discharge Diagnosis 01/22/22 Elevated blood pressure reading without diagnosis of hypertension Discharge Diagnosis 01/22/22 Hypothyroid Discharge Diagnosis 01/22/22 Multiple drug allergies-- followed by Dr Calderon as of 2021 1 Discharge Diagnosis 01/22/22 Non-Specified Acid reflux Discharge Diagnosis 01/22/22 Cellulitis Discharge Diagnosis 01/27/22 14:44 EDT - Rahat GERBER, Gaye Macias - followed by Dr Calderon as of 2021 Vital Signs Most recent to oldest [Reference Range]: 1 Height 150 cm (01/22/22 1:54 PM) Weight 49.1 kg (01/22/22 1:54 PM) Oxygen Saturation [94-100 %] 98 % (01/22/22 1:54 PM) Pulse Rate [55-90 bpm] 82 bpm (01/22/22 1:54 PM) Body Mass Index [18.5-24.99 kg/m2] 21.82 kg/m2 (01/22/22 1:54 PM) Blood Pressure [90-138/55-84 mm Hg] 150/ 79mm Hg *H* (01/22/22 1:54 PM) Blood pressure sites Arm, right (01/22/22 1:54 PM) Social History Social History Type Response Smoking Status Never (less than 100 in lifetime) entered on: 05/30/19 Sex Patient Care team information Personnel Name: Rahat GERBER, Gaye Macias Address: Address: [address] [place] [address]
--- OUTSIDE RECORDS SUMMARY | 2023-05-02 12:15 | XMS_ITS | Continuity of Care Document ---
Author Name Unknown Organization [facility] Address [address] [place] [address]- Care Team Providers Care Secretarial Teacher Name Role Phone Yolanda Fischer MD Primary Care Physician En[place] [facility] [place] Date(s): 09/12/19 - 10/12/19 [facility] [address] [place] [address]- [facility] Attending Physician: Admtr, Ar8 Admitting Physician: [...] Active Adhesive Bandage rash Active Cats Active [place] Active Dogs Active Dust Active Horses Active [...] stasis(Confirmed) Active 1Dr Melo rheum 2Dr Soco agricultural commodities grader multiple food and drug allergies 3[facility] 4colonoscopy 06/21/2019 removed 4 polyps. if positive for ca will need colon resection Social History Social History Type Response Smoking Status Never (less than 100 in lifetime) entered on: 05/30/19 Sex Female
--- OUTSIDE RECORDS SUMMARY | 2023-05-02 12:15 | XMS_ITS | Continuity of Care Document ---
Author Name Unknown Organization [facility] Address [address] [address]- Care Team Providers Care Balance Bridge Inspector Name Role Phone Rahat GERBER, Gaye Macias Primary Care Physician ( [phone] [place] [facility] [place] - 12/27/21 [facility] [address] [address]- Attending Physician: Admsharonda, Logan8 Admitting Physician: Admtr, Ar8 Referring Physician: Admtr, [...] rash Active Cats Active Contrast Dye Active [place] Active Dogs Active Dust Active Horses Active [...] Name: Rahat GERBER, Gaye Macias Address: [address] [place] [address]-
--- OUTSIDE RECORDS SUMMARY | 2023-05-02 12:15 | XMS_ITS | Continuity of Care Document ---
Author Name Unknown Organization [facility] Address [address] [place] [address]- Care Team Providers Care Chemical Maker Name Role Phone Patti HARDEN, Shandra Lance Primary Care Physician [place] [facility] [place] 03/13/21 - 04/12/21 [facility] [address] [place] [address]- Allergies, Adverse Reactions, Alerts Substance Reaction Severity [...] rash Active Cats Active Contrast Dye Active [place] Active Dogs Active Dust Active Horses Active [...] each, 2 Refills, Maintenance, 12/25/20 10:09:00 EDT, [facility] #[id number], Partial fill upon patient request if the prescription is for a schedule II opioid drug., 150, cm, 12/25/20 9:32:00 EDT, H... Start Date: 12/25/20 Status: Ordered linezolid 600 mg oral tablet 1 tablet = 600 mg, By Mouth, Every 12 hours, for 7 days, # 14 tablet, 0 Refills, Acute 04/18/21 10:16:00 EST, 04/11/21 10:16:00 EST, Tablet, [facility] #[id number], Partial fill upon patient request if the [...] stasis(Confirmed) Active 1Dr Melo rheum 2Dr Soco skein inspector multiple food and drug allergies 3[facility] [...]
--- OUTSIDE RECORDS SUMMARY | 2023-05-02 12:15 | XMS_ITS | Continuity of Care Document ---
Author Name Unknown Organization [facility] Address [address] [place] [address]- Care Team Providers Care Foundation Relations Manager Name Role Phone Ruma Bravo MD Primary Care Physician [place] [facility] [place] - 11/13/22 [facility] [address] [place] [address]- Encounter Diagnosis Reactive arthritis(Discharge Diagnosis) - 03/20/21 Attending Physician: Will Wilson Admitting Physician: Will Wilson Referring Physician: AdmWill mcdonough Allergies, Adverse Reactions, Alerts Substance Reaction Severity [...] rash Active Cats Active Contrast Dye Active [place] Active Dogs Active Dust Active Horses Active [...] 2 Refills, Soft Stop, 10/15/22 14:04:00 EDT, [facility] #[id number], Partial fill upon patient request if the [...] 11/03/22 16:12:00 EDT, Route to Pharmacy Electronically, [facility] #[id number], Partial fill upon patient request if the [...] 2 Refills, Maintenance, 09/08/22 10:06:00 EDT, Tablet, [facility] #[id number],... Start Date: 09/08/22 Status: Ordered lisinopril 5 mg oral tablet 5 mg, 1, tablet, By Mouth, Daily, # 90 tablet, Refills 1, Tot. Refills 1, Maintenance, 09/02/22 9:47:00 EDT, Route to Pharmacy Electronically, [facility] #[id number], 150, cm, 08/27/22 14:11:00 EDT, Height, 45.9, kg, 08/05/22 11:18:00 EDT, [facility]... Start Date: 09/02/22 Stop Date: 03/01/23 Status: Ordered Medrol 32 mg oral tablet See Instructions, 1 tab [address] scan, then 1 tab [address] scan., # 2 tablet, 0 Refills, Acute 11/14/22 14:03:00 EDT, 10/15/22 14:02:00 EDT, [facility] #[id number], Partial fill upon patient request if the [...] Refills, Soft Stop, 11/03/22 16:11:00 EDT, Tablet, [facility] #[id number], Partial fill upon patient request if the prescription is for a schedule II opioid drug., 148, cm, 07/0... Start Date: 11/03/22 Stop Date: 11/08/22 Status: Ordered Readi-Cat 2 oral suspension See Instructions, Dispense Two 450mL bottles. Take as instructed., # 900 mL, 0 Refills, Maintenance, 10/21/22 16:47:00 EDT, [facility]/pharmacy #[id number], Partial fill upon patient request if [...] Event Display: Cardiology Note Office Authored Date: [id number] * Marjorie Adorno: PERFORM Event Display: Cardiology Note Office Authored Date: [id number] Radiology * Event Display: Ultrasound Lower Extremity, Non- Authored Date: * Event Display: X-Ray Knee, Non- Authored Date: * Event Display: MRI Head, Non- Authored Date: * Event Display: MRI Spine, Non- BH Authored Date: * Morteza GERBER , [place] September D: REVIEW Event Display: Radiology Result Scanned Authored Date: * Event Display: Radiology Result Scanned Authored Date: * Event Display: Radiology Result Scanned Authored Date: CT Abdomen * Event Display: CT Scan Abdomen Authored Date: Patient Care team information Care Team Personnel Name: Yin Hsu Position: [facility] Onco RN Member Role: Primary Care Nurse Name: Ruma Bravo MD Position: [facility] Physician - Primary Care Member Role: PCP Address: Address: [address] [place] [id number] Name: Cherry Olsen MD Position: [facility] FURS SALESPERSON MD Member Role: Lifetime FURS SALESPERSON Physician Address: Address: [address] [place] [address] [facility] [place] [address]- Name: Maeve Jones RN Position: [facility] RN Member Role: Primary Care Nurse Care Team Related Persons Name: MEG MARTIN Address: home [address] [place] [id number] Name: JAKE RODRIGUES Address: [place] [address]
--- OUTSIDE RECORDS SUMMARY | 2023-05-02 12:15 | XMS_ITS | Continuity of Care Document ---
Author Name Unknown Organization [facility] Address [address] [place] [address]- Care Team Providers Care Guest Relations Manager Name Role Phone Yolanda Fischer MD Primary Care Physician [place] [facility] [place] 11/08/19 - 12/08/19 [facility] [address] [place] [address]- [facility] Allergies, Adverse Reactions, Alerts Substance Reaction Severity Status atenolol Active codeine Active ibuprofen Active tetracycline Active erythromycin Active penicillin Active sulfADIAZINE All sulfa drugs Active metoprolol Active aspirin Active caffeine Active shellfish Active Benadryl, Topical Active Keflex Active Cleocin T Active Fosamax Active Cefzil Active Tums Active Levaquin Active Tylenol Active Bactrim Active Adhesive Bandage rash Active Cats Active Contrast Dye Active [place] Active Dogs Active Dust Active Horses Active Latex rash Active Mold Active Nuts Active Pork Active Soy Products Active fentaNYL Active Biaxin XL Active Immunizations Given and Recorded Vaccine Date [...] stasis(Confirmed) Active 1Dr Melo rheum 2Dr Soco ground wirer multiple food and drug allergies 3[facility] 4colonoscopy 06/21/2019 removed 4 polyps. if positive for ca will need colon resection Social History Social History Type Response Smoking Status Never (less than 100 in lifetime) entered on: 05/30/19 Sex Female
--- OUTSIDE RECORDS SUMMARY | 2023-05-02 12:15 | XMS_ITS | Continuity of Care Document ---
Author Name Unknown Organization [facility] Address [address] [place] [address]- Care Team Providers Care Construction Economist Name Role Phone Patti HARDEN, Shandra Lance Primary Care Physician [place] [facility] [place] 05/09/21 [facility] [address] [place] [address]- Attending Physician: Rahat GERBER, Gaye Macias Allergies, [...] 3 each, 2 Refills, Maintenance, 12/25/20 10:09:00 [facility] #[id number], Partial fill upon patient request if the [...] stasis(Confirmed) Active 1Dr Melo rheum 2Dr Soco machine farmworker multiple food and drug allergies 3[facility] 4colonoscopy 06/21/2019 removed 4 polyps. if positive for ca will need colon resection 5Late April 2020 6Pt. had 2nd Pfizer vaccine on 09/19 and pain in her L hand on 10/07. Social History Social History Type Response Smoking Status Never (less than 100 in lifetime) entered on: 05/30/19 Sex
--- OUTSIDE RECORDS SUMMARY | 2023-05-02 12:15 | XMS_ITS | Continuity of Care Document ---
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.(Discharge Diagnosis) - 02/14/22 Attending Physician: Rahat GERBER, Gaye Macias Allergies, Adverse Reactions, Alerts Substance Reaction Severity Status atenolol Active codeine Active doxycycline 1 Moderate Active penicillin Active Benadryl, Topical 2 Active ibuprofen Active aspirin Active tetracycline Active clindamycin Active erythromycin Active shellfish Active sulfADIAZINE All sulfa drugs Active metoprolol Active caffeine Active Keflex Active Fosamax Active Cleocin T Active Cefzil Active Tums Active Levaquin Active Tylenol Active Cats Active [place] Active Dogs Active Dust Active Horses Active Mold Active Nuts Active Other Food Allergy chicken broccoli other veggetables tomatoes onions cucumbers lettuce peas carrots wheat rash hives itchy Active Soy Products Active fentaNYL Active Latex rash Active Bactrim Active Biaxin XL Active Adhesive Bandage rash Active Contrast Dye Active 1Rash 2Pt States she tolerates Benadryl [...] 01/22/22 15:19:00 EDT, Route to Pharmacy Electronically, [facility] #[id number], Partialfill upon patient request if the prescription [...] Effective Dates Health Status Clinical Service Informant H/O right hemicolectomy- 01/30/22, 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 1 Discharge Diagnosis 02/14/22 Non-Specified 12:50 EDT - Rahat GERBER, Gaye Macias 01/30/22, Dr 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 Vital Signs Most recent to oldest [Reference Range]: 1 Height 150 cm (02/14/22 11:41 AM) Weight 46.0 kg (02/14/22 11:41 AM) Oxygen Saturation [94-100 %] 99 % (02/14/22 11:41 AM) Pulse Rate [55-90 bpm] 114 bpm *H* (02/14/22 11:41 AM) Body Mass Index [18.5-24.99 kg/m2] 20.44 kg/m2 (02/14/22 11:41 AM) Blood Pressure [90-138/55-84 mm Hg] 136/ 82mm Hg (02/14/22 11:41 AM) Temperature [96.8-100.4 DegF] 98.2 DegF (02/14/22 11:41 AM) Blood pressure sites Arm, left (02/14/22 11:41 AM) Temperature Route Oral (02/14/22 11:41 AM) Social History Social History Type Response Smoking Status Never (less than 100 in lifetime) entered on: 05/30/19 Sex Patient Care team information Personnel Name: Rahat GERBER, Gaye Macias Address: Address: [address] [place], [place] [address]
--- OUTSIDE RECORDS SUMMARY | 2023-05-02 12:15 | XMS_ITS | Continuity of Care Document ---
Author Name Unknown Organization [facility] Address [address] [place] [address]- Care Team Providers Care Pebble Mill Operator Name Role Phone Rahat GERBER, Gaye Macias Primary Care Physician En[facility] [place] Date(s): 05/29/22 - 06/28/22 [facility] [address] [place] [address] Attending Physician: Admtr, Logan8 Admitting Physician: Admtr, Ar8 Referring Physician: [...] rash Active Cats Active Contrast Dye Active [place] Active Dogs Active Dust Active Horses Active [...] Weight Start Date: 05/29/22 Status: Ordered EpiPen 2-Jermna = 0.3 mg, Intramuscular, Once, 0 Refills, [...] Instructions Replace Required Details, Route to PharmacyElectronically, [facility] #[id number], 150, c... Start Date: 06/24/22 Status: Ordered lisinopril 5 mg oral tablet 5 mg, 1, tablet, By Mouth, Daily, new start 01/22/22, # 30 tablet, Refills 2, Tot. Refills 2, Maintenance, 01/22/22 15:19:00 EDT, Route to Pharmacy Electronically, [facility] #[id number], Partialfill upon patient request if the prescription is fo... Start Date: 01/22/22 Stop Date: 04/22/22 Status: Ordered metroNIDAZOLE 500 mg oral tablet 1 tablet = 500 mg, By Mouth, 3 times a day, # 15 tablet, 0 Refills, Maintenance, 02/27/22 16:27:00 EDT, Tablet, [facility] #[id number], Partial fill upon patient request if the [...] lifetime) entered on: 05/30/19 Sex Note * Event Display: EKG Non Authored Date: * Event Display: Non Lab Results Authored Date: * Event Display: Ultrasound Lower Extremity, Non- Authored Date: Patient Care team information Care Team Personnel Name: Yin Hsu Position: [facility] Onco RN Member Role: Primary Care Nurse Name: Gaye Giang MD Position: [facility] Primary Care Physician Member Role: PCP Address: Address: [address] [place] [address]- Name: Consuelo Louis RN Position: [facility] RN Member Role: Primary Care Nurse Name: Cherry Olsen MD Position: [facility] DRAGLINE ENGINEER MD Member Role: Lifetime DRAGLINE ENGINEER Physician Address: Address: [address] [place] [address]'s [facility] Estate - [address] Name: Maeve Jones RN Position: [facility] RN Member Role: Primary Care Nurse Care Team Related Persons Name: MEG MARTIN Address: [address] [address] Name: JAKE RODRIGUES Address: [place] [address]
--- OUTSIDE RECORDS SUMMARY | 2023-05-02 12:15 | XMS_ITS | Continuity of Care Document ---
Author Name Unknown Organization [facility] Address [address] [place] [address]- Care Team Providers Care Muck Hauler Name Role Phone Yolanda Fischre MD Primary Care Physician [place] [facility] [place] - 06/13/20 [facility] [address] [place] [address]- Encounter Diagnosis COVID-19 virus infection(Discharge Diagnosis) - 05/14/20 Attending Physician: Chuck HAND FRAME SURGICAL ELASTIC KNITTER, Crystal Allergies, Adverse Reactions, Alerts Substance Reaction Severity Status atenolol Active codeine Active tetracycline Active penicillin Active sulfADIAZINE All sulfa drugs Active shellfish Active Keflex Active Tums Active Levaquin Active Tylenol Active Bactrim Active ibuprofen Active aspirin Active Benadryl, Topical Active erythromycin Active Cefzil Active metoprolol Active caffeine Active Cleocin T Active Fosamax Active Horses Active Mold Active Nuts Active Soy Products Active fentaNYL Active Latex rash Active Biaxin XL Active Adhesive Bandage rash Active Cats Active [place] Active Contrast Dye Active Dogs Active Dust [...] capsule, 1 Refills, Maintenance, 04/17/20 10:01:00 EST, [email or web address] #[id number], [place]... Start Date: 04/17/20 Status: Ordered Multivitamins [...] Venous stasis(Confirmed) Active 1Dr Melo rheum 2Dr Lillieawyrn case sealer multiple food and drug allergies 3[facility] 4colonoscopy 06/21/2019 removed 4 polyps. if positive for ca will need colon resection Diagnosis Diagnosis Type Effective Dates Health Status Cl inical Service Informant COVID-19 virus infection Discharge Diagnosis 05/14/20 Vital Signs Most recent to oldest [Reference Range]: 1 Height 150.0 cm (05/14/20 8:46 AM) Social History Social History Type Response Smoking Status Never (less than 100 in lifetime) entered on: 05/30/19 Sex Female
--- OUTSIDE RECORDS SUMMARY | 2023-05-02 12:15 | XMS_ITS | Continuity of Care Document ---
Author Name Unknown Organization [facility] Address [address] [address]- Care Team Providers Care Relay Mechanic Name Role Phone Patti HARDEN, Shandra Lance Primary Care Physician En[place] [facility] [place] [place] [place] [id number] Date(s): 04/17/21 - 04/24/21 [facility] [address] [address]- Attending Physician: Savanah Charlton Admitting Physician: Savanah [...] rash Active Cats Active Contrast Dye Active [place] Active Dogs Active Dust Active Horses Active [...] each, 2 Refills, Maintenance, 12/25/20 10:09:00 EDT, [facility] #[id number], Partial fill upon patient request if the [...] stasis(Confirmed) Active 1Dr Melo rheum 2Dr Soco last turner multiple food and drug allergies 3[facility] 4colonoscopy 06/21/2019 removed 4 polyps. if positive for ca will need colon resection 5Late April 2020 6Pt. had 2nd Pfizer vaccine on 09/19 and pain in her L hand on 10/07. Social History Social History Type Response Smoking Status Never (less than 100 in lifetime) entered on: 05/30/19 Sex
--- OUTSIDE RECORDS SUMMARY | 2023-05-02 12:15 | XMS_ITS | Continuity of Care Document ---
Author Name Unknown Organization [facility] Address [address] [place] [address]- Care Team Providers Care Data Scientist Name Role Phone Patti HARDEN, Shandra Lance Primary Care Physician En[place] [facility] [place] Date(s): 01/30/21 - 03/17/[address] [address]- Attending Physician: Stephen Snell MD Admitting Physician: Stephen Snell MD Referring Physician: Stephen Snell MD Allergies, Adverse Reactions, Alerts Substance Reaction [...] Active Adhesive Bandage rash Active Cats Active [place] Active Contrast Dye Active Dogs Active Dust [...] each, 2 Refills, Maintenance, 12/25/20 10:09:00 EDT, [facility] #[id number], Partial fill upon patient request if the [...] kit, 0 Refills, Maintenance, 01/14/21 12:14:00 EDT, [facility] #[id number], Partial fill upon patient request if the [...] stasis(Confirmed) Active 1Dr Melo rheum 2Dr Soco cornetist multiple food and drug allergies 3[facility] 4colonoscopy 06/21/2019 removed 4 polyps. if positive for ca will need colon resection 5Late April 2020 6Pt. had 2nd Pfizer vaccine on 09/19 and pain in her L hand on 10/07. Social History Social History Type Response Smoking Status Never (less than 100 in lifetime) entered on: 05/30/19 Sex
--- OUTSIDE RECORDS SUMMARY | 2023-05-02 12:16 | XMS_ITS | Continuity of Care Document ---
Author Name Unknown Organization [facility] Address [address] [address]- Care Team Providers Care Gas Pumping Station Operator Name Role Phone Yolanda Fischer MD Primary Care Physician En[place] [facility] [place] Date(s): 10/24/19 - 11/23/19 [facility] [address] [address]- [facility] Attending Physician: AdmWill mcdonough Admitting Physician: [...] rash Active Cats Active Contrast Dye Active [place] Active Dogs Active Dust Active Horses Active [...] stasis(Confirmed) Active 1Dr Melo rheum 2Dr Soco pocket secretary assembler multiple food and drug allergies 3[facility] 4colonoscopy 06/21/2019 removed 4 polyps. if positive for ca will need colon resection Social History Social History Type Response Smoking Status Never (less than 100 in lifetime) entered on: 05/30/19 Sex Female
--- OUTSIDE RECORDS SUMMARY | 2023-05-02 12:16 | XMS_ITS | Continuity of Care Document ---
Author Name Unknown Organization [facility] Address [address] [facility] [place] [address]- Care Team Providers Care Com Writer Name Role Phone Yolanda Fischer MD Primary Care Physician Encounter 10/31/19 - 11/07/19 [facility] [address] [place] [address]- [phone] Attending Physician: Yolanda Fischer MD Admitting Physician: [...] rash Active Cats Active Contrast Dye Active [place] Active Dogs Active Dust Active Horses Active [...] stasis(Confirmed) Active 1Dr Melo rheum 2Dr Soco physical therapy resident multiple food and drug allergies 3[facility] 4colonoscopy 06/21/2019 removed 4 polyps. if positive for ca will need colon resection Social History Social History Type Response Smoking Status Never (less than 100 in lifetime) entered on: 05/30/19 Sex Female
--- OUTSIDE RECORDS SUMMARY | 2023-05-02 12:16 | XMS_ITS | Continuity of Care Document ---
Author Name Unknown Organization [facility] Address [address] [address]- Care Team Providers Care Alberene Stone Setter Name Role Phone Rahat GERBER, Gaye Macias Primary Care Physician Encounter [facility] [place] [facility] [id number] Date(s): 07/26/21 - 08/02/21 [facility] [address] [address]- Attending Physician: Harmony GERBER, Merced Denny Admitting Physician: Harmony GERBER, Merced Denny Referring Physician: Patti HARDEN, Shandra Lance Allergies, Adverse Reactions, Alerts Substance Reaction Severity Status atenolol Active codeine Active ibuprofen Active doxycycline 1 Moderate Active tetracycline Active clindamycin Active erythromycin Active penicillin Active sulfADIAZINE All sulfa drugs Active metoprolol Active aspirin Active caffeine Active shellfish Active Keflex Active Cleocin T Active Fosamax Active Cefzil Active Tums Active Levaquin Active Tylenol Active Bactrim Active Biaxin XL Active Cats Active Contrast Dye Active [place] Active Dogs Active Dust Active Horses Active Latex rash Active Mold Active Nuts Active Pork Active Soy Products Active fentaNYL Active Adhesive Bandage rash Active vancomycin 2 rash Persistent Mild Active Benadryl, Topical 3 Active 1Rash 2rash 3Pt States she tolerates [...] each, 2 Refills, Maintenance, 12/25/20 10:09:00 EDT, [facility] #[id number], Partial fill upon patient request if the [...] stasis(Confirmed) Active 1Dr Melo rheum 2Dr Soco leverman multiple food and drug allergies 3[facility] 4colonoscopy 06/21/2019 removed 4 polyps. if positive for ca will need colon resection 5Late April 2020 6Pt. had 2nd Pfizer vaccine on 09/19 and pain in her L hand on 10/07. Vital Signs Most recent to oldest [Reference Range]: 1 Height 150 cm (07/26/21 11:43 AM) Weight 54 kg (07/26/21 11:43 AM) Oxygen Saturation [94-100 %] 98 % (07/26/21 11:43 AM) Pulse Rate [55-90 bpm] 108 bpm *H* (07/26/21 11:43 AM) Body Mass Index [18.5-24.99] 24 (07/26/21 11:43 AM) Blood Pressure [90-138/55-84 mm Hg] 144/ 70mm Hg *H* (07/26/21 11:43 AM) Blood pressure sites Arm, right (07/26/21 11:43 AM) Weight Obtained Via Standing scale (07/26/21 11:43 AM) Social History Social History Type Response Smoking Status Never (less than 100 in lifetime) entered on: 05/30/19 Sex
--- OUTSIDE RECORDS SUMMARY | 2023-05-02 12:16 | XMS_ITS | Continuity of Care Document ---
Author Name Unknown Organization [facility] Address [address] [place] [address]- Care Team Providers Care Spa Experience Coordinator Name Role Phone Ruma Bravo MD Primary Care Physician Encounter [facility] [place] Date(s): 10/14/22 - 10/21/22 [facility] [address] [place] [address]- Encounter Diagnosis LLQ pain(Discharge Diagnosis) - 10/15/22 Contrast media allergy(Discharge Diagnosis) - 10/15/22 Attending Physician: Ruma Bravo MD Allergies, Adverse [...] rash Active Cats Active Contrast Dye Active Nerinx Active Dogs Active Dust Active Horses Active [...] 2 Refills, Soft Stop, 10/15/22 14:04:00 EDT, [facility] #[id number], Partial fill upon patient request if the [...] 2 Refills, Maintenance, 09/08/22 10:06:00 EDT, Tablet, [facility] #[id number],... Start Date: 09/08/22 Status: Ordered lisinopril 5 mg oral tablet 5 mg, 1, tablet, By Mouth, Daily, new start 01/22/22, # 30 tablet, Refills 2, Tot. Refills 2, Maintenance, 01/22/22 15:19:00 EDT, Route to Pharmacy Electronically, [facility] #[id number], Partialfill upon patient request if the prescription is fo... Start Date: 01/22/22 Stop Date: 04/22/22 Status: Ordered lisinopril 5 mg oral tablet 5 mg, 1, tablet, By Mouth, Daily, # 90 tablet, Refills 1, Tot. Refills 1, Maintenance, 09/02/22 9:47:00 EDT, Route to Pharmacy Electronically, [email or web address] #[id number], 150, cm, 08/27/22 14:11:00 EDT, Height, 45.9, kg, 08/05/22 11:18:00 EDT, Dry We... Start Date: 09/02/22 Stop Date: 03/01/23 Status: Ordered Medrol 32 mg oral tablet See Instructions, 1 tab [address] scan, then 1 tab [address] scan., # 2 tablet, 0 Refills, Acute 11/14/22 14:03:00 EDT, 10/15/22 14:02:00 EDT, [email or web address] #[id number], Partial fill upon patient request if the prescription is for a... Start Date: 10/15/22 Stop Date: 11/14/22 Status: Ordered Omeprazole = 40 mg, By Mouth, Daily, 0 Refills, Maintenance, 09/24/21 9:04:00 EDT, Partial fill upon patient request if the prescription is for a schedule II opioid drug. Start Date: 09/24/21 Status: Ordered Readi-Cat 2 oral suspension See Instructions, Dispense Two 450mL bottles. Take as instructed., # 900 mL, 0 Refills, Maintenance, 10/21/22 16:47:00 EDT, [facility]/pharmacy #[id number], Partial fill upon patient request if [...] Dates Health Status Cl inical Service Informant LLQ pain Discharge Diagnosis 10/15/22 Contrast media allergy Discharge Diagnosis 10/15/22 Vital Signs Most recent to oldest [Reference Range]: 1 2 Height 148.5 cm (10/14/22 9:38 AM) 148.5 cm (10/14/22 9:30 AM) Weight 48.8 kg (10/14/22 9:30 AM) Oxygen Saturation [94-100 %] 97 % (10/14/22 9:30 AM) Pulse Rate [55-90 bpm] 108 bpm *H* (10/14/22 9:30 AM) Body Mass Index [18.5-24.99 kg/m2] 22.13 kg/m2 (10/14/22 9:30 AM) Blood Pressure [90-138/55-84 mm Hg] 146/ 84mm Hg *H* (10/14/22 9:38 AM) 150/80mm Hg *H* (10/14/22 9:30 AM) Blood pressure sites Arm, right (10/14/22 9:38 AM) Arm, right (10/14/22 9:30 AM) Weight Obtained Via Standing scale (10/14/22 9:30 AM) Social History Social History Type Response Smoking Status Never (less than 100 in lifetime) entered on: 05/30/19 Sex Note * Dhara Troncoso: PERFORM, SIGN, VERIFY Event Display: Patient Education/Instruction Authored Date: [id number] [facility] *[facility] Clinical Summary Name NAUN MARTIN Age 77 Years 1945 PCP Lawrence GERBER, Ruma Bauer PCP Visit Date 10/14/2022 09:28:00 Additional Instructions: Scheduled Appointments?? Future Appointments ?[facility] ?[address]??[place],??[place],??[address] ?Phone:??[phone]?Fax:??-- ?Appt. Date:??10/27/2022?10:15 AM ?Scheduled Provider:??[facility] Rm 15 Follow-Up Instructions ?? Diagnosis Medications: Please continue your medications until treatment is completed or stopped by your provider. Discuss any questions related to medications with your provider. Medications to Continue with No Changes These medications were not printed or sent to your pharmacy Durable Medical Equipment (Cane) Dx foot pain. Refills: 0. Next Dose: EPINEPHrine (EpiPen 2-Jerman) 0.3 Milligram Intramuscular once. Next Dose: Ibandronate (ibandronate 150 mg oral tablet) 1 tab(s) Oral every 30 days. Swallow whole w/6-8oz water 1HR before first food, drink, med-Do not lie down for 1HR & until after first food. Refills: 2. Next Dose: Lisinopril (lisinopril 5 mg oral tablet) 1 tab(s) Oral Daily for 30 Days. new start 01/22/22. Refills: 2. Next Dose: Lisinopril (lisinopril 5 mg oral tablet) 1 tab(s) Oral Daily for 90 Days. Refills: 1. Next Dose: Omeprazole 40 Milligram Oral Daily. Next Dose: Allergy Info:?? fentaNYL; Soy Products; Other Food Allergy; Nuts; Mold; Latex; Horses; Dust; Dogs; Nerinx; Contrast Dye; Cats; Adhesive Bandage; Biaxin XL; Bactrim; Tylenol; Levaquin; Augmentin; Tums; Cefzil; Fosamax; Cleocin T; Keflex; Benadryl, Topical; shellfish; sulfa drugs; caffeine; predniSONE;aspirin; metoprolol; sulfADIAZINE; penicillin; amoxicillin; erythromycin; clindamycin; tetracycline; doxycycline; ibuprofen; codeine; atenolol Medications Given This Visit Future Orders ?CT Abd/Pelvis W/ IV + Oral Contrast? Order Date:10/14/22?- Complete on or after?10/14/22 ?Comprehensive Metabolic Panel? Order Date:10/14/22?- Complete on or after?10/14/22 Vital Signs Height 148.5 cm Weight 48.8 kg BMI 22.13 kg/m2 Blood Pressure 146 mm Hg/84 mm Hg Temperature Pulse Rate 108 bpm Respiratory Rate 02 Sat Mode of Delivery 97 %/ You can now view a summary of your hospital visit from the comfort of your home through a free online portal called [facility]. [facility] is a website that allows you to securely view your medical information including discharge summary, medications and follow-up visits. ??You can alsosend a secure electronic message to your doctor???s office to request appointments, renew medications or just ask a question. You can enroll at [email or web address] or register during your next office visit. [...] primary care provider, you may find a [facility] provider by calling [facility] Link at [phone]. For information about the plan of care [...] Care Member Role: PCP Address: Address: [address] [place] [address] Family Medicine [address] Name: Pretty GERBER, Cherry Gaines Position: [facility] SHIP'S PILOT MD Member Role: [employer]etime SHIP'S PILOT Physician Address: Address: [address] [place] [address] Women's Health Landfill Gas Technician - [address] Name: Maeve Jones RN Position: [facility] RN Member Role: Primary Care Nurse Care Team Related Persons Name: MEG MARTIN Address: [address] [address] Name: JAKE RODRIGUES Address: [place] [address]
--- OUTSIDE RECORDS SUMMARY | 2023-05-02 12:16 | XMS_ITS | Continuity of Care Document ---
Author Name Unknown Organization [facility] Address [address] [address]- Care Team Providers Care Radiology Special Procedure Tech Name Role Phone Rahat GERBER, Gaye Macias Primary Care Physician Encounter [facility] R [id number] Date(s): 07/08/22 - 07/15/22 [facility] [address] [address]- Attending Physician: Harmony GERBER, Merced Denny Admitting Physician: Harmony GERBER, Merced Denny Referring Physician: Harmony GERBER, Merced Denny Allergies, Adverse Reactions, Alerts Substance Reaction Severity Status atenolol Active codeine Active ibuprofen Active amoxicillin Active penicillin Active aspirin Active predniSONE Allergy to sulfa drugs Activ e sulfa drugs Active shellfish Active doxycycline 1 Moderate Active tetracycline Active clindamycin Active erythromycin Active sulfADIAZINE All sulfa drugs Active metoprolol Active caffeine Active Benadryl, Topical 2 Active Keflex Active Cefzil Active Tums Active Augmentin Active Levaquin Active Tylenol Active Cats Active [place] Active Horses Active Mold Active Nuts Active [...] Instructions Replace Required Details, Route to PharmacyElectronically, [facility] #[id number], 150, c... Start Date: 06/24/22 Status: Ordered lisinopril 5 mg oral tablet 5 mg, 1, tablet, By Mouth, Daily, new start 01/22/22, # 30 tablet, Refills 2, Tot. Refills 2, Maintenance, 01/22/22 15:19:00 EDT, Route to Pharmacy Electronically, [facility] #[id number], Partialfill upon patient request if the prescription [...] on: 05/30/19 Sex Note * Event Display: VL Venous Dup Scan Venous Insuf LE Right Authored Date: Status:Open Vascular Lower Extremities Venous Insufficiency Study Demographics Procedure Information Patient name: VERONICA MAGALLON Procedure date: 07/08/2022 10:00 AM Corporate Proc. sub type: Veins: Lower Extremities Venous Insufficiency, Venous Duplex Scan Gender: Female Venous Insuf LE Right. Date of : 1945 Accession No: [id number] Age: 77 year(s) Account No: [id number] Patient status: Routine Procedure Staff Admit Status: Outpatient Attending Physician: Merced Antunez MD Probe: L9-3 Ordering physician: Merced Antunez MD Technical quality: Adequate visualization Referring Physician: Merced Antunez MD Facility: [facility] Extension Educator: Erma Mcmanus RDMS Interpreting physician: Dayron Brannon MD Study location: [facility] Procedure consent obtained: Indications No Other. LE Venous Insufficiency Findings Right Left Reflu Reflu AP x AP x DIAM Time DIAM Time Location (mm) (sec) Thrombosis (mm) (sec) Thrombosis Common Femoral 0.5 Prox Femoral 0 Mid Femoral 0.2 Dist Femoral 0 Popliteal 0.2 Right Left Reflu Reflu AP x AP x DIAM Time DIAM Time Location (mm) (sec) Thrombosis (mm) (sec) Thrombosis Sapheno Femoral Junction 4.8 0.2 GSV High Thigh 2 0.5 GSV Mid Thigh 1.4 0.7 GSV Low Thigh 1.3 0.7 GSV Knee 1.7 0.3 GSV High Calf 1.4 0.4 SSV High Calf 2.2 0 SSV Low Calf 2 0.3 Physician Conclusions Summary: Right side: There is reflux lasting 0.7 seconds at the mid thigh in the Great Saphenous vein. There is no evidence of deep vein thrombosis in the segments insonated. There is deep vein reflux. There is reflux lasting 0.3 seconds in the Small Saphenous vein. Exam was performed with patient in Reverse Trendelenberg position. * Event Display: VL Venous Dup Scan Venous Insuf LE Right Authored Date: [id number] Patient Care team information Care Team Personnel Name: Yin Hsu Position: [facility] Onco RN Member Role: Primary Care Nurse Name: Gaye Giang MD Position: [facility] Primary Care Physician Member Role: PCP Address: Address: [address] [place] [address] Name: Consuelo Louis RN Position: [facility] RN Member Role: Primary Care Nurse Name: Cherry Olsen MD Position: [facility] RECEPTION MD Member Role: Lifetime RECEPTION Physician Address: Address: [address] [place] [address] [facility] [place] [address]- Name: Maeve Jones RN Position: [facility] RN Member Role: Primary Care Nurse Care Team Related Persons Name: MEG MARTIN Address: [address] [address] Name: JAKE RODRIGUES Address: [place] [address]
--- OUTSIDE RECORDS SUMMARY | 2023-05-02 12:16 | XMS_ITS | Continuity of Care Document ---
Author Name Unknown Organization [facility] Address [address] [place] [address]- Care Team Providers Care Wastewater Operator Name Role Phone Lawrence GERBER, Ruma Bauer Primary Care Physician Encounter [facility] Date(s): 08/21/22 - 09/20/22 [facility] [address] [place] [address]- Allergies, Adverse Reactions, Alerts Substance Reaction Severity [...] rash Active Cats Active Contrast Dye Active [place] Active Dogs Active Dust Active Horses Active [...] 2 Refills, Maintenance, 09/08/22 10:06:00 EDT, Tablet, [facility] #[id number],... Start Date: 09/08/22 Status: Ordered lisinopril 5 mg oral tablet 5 mg, 1, tablet, By Mouth, Daily, new start 01/22/22, # 30 tablet, Refills 2, Tot. Refills 2, Maintenance, 01/22/22 15:19:00 EDT, Route to Pharmacy Electronically, [facility] #[id number], Partialfill upon patient request if the prescription is fo... Start Date: 01/22/22 Stop Date: 04/22/22 Status: Ordered lisinopril 5 mg oral tablet 5 mg, 1, tablet, By Mouth, Daily, # 90 tablet, Refills 1, Tot. Refills 1, Maintenance, 09/02/22 9:47:00 EDT, Route to Pharmacy Electronically, [facility] #[id number], 150, cm, 08/27/22 14:11:00 EDT, Height, 45.9, [...] Care Team Personnel Name: Yin Hsu Position: [facility] Onco RN Member Role: Primary Care Nurse Name: Ruma Bravo MD Position: [facility] Primary Care Physician Member Role: PCP Address: Address: [address] [place] [address] [place] [address]- Name: Consuelo Louis RN Position: [facility] RN Member Role: Primary Care Nurse Name: Cherry Olsen MD Position: [facility] ICT BUSINESS DEVELOPMENT MANAGER MD Member Role: Lifetime ICT BUSINESS DEVELOPMENT MANAGER Physician Address: Address: [address] Women's Health [place] [address]- Name: Maeve Jones RN Position: [facility] RN Member Role: Primary Care Nurse Care Team Related Persons Name: MEG MARTIN Address: home [address] [place] [address] Name: JAKE RODRIGUES Address: [place] [address]
--- OUTSIDE RECORDS SUMMARY | 2023-05-02 12:16 | XMS_ITS | Continuity of Care Document ---
Author Name Unknown Organization [facility] Address [address] [place] [address]- Care Team Providers Care Margarine Churn Operator Name Role Phone Patti HARDEN, Shandra Lance Primary Care Physician Encounter [facility] Date(s): 06/18/21 - 07/18/21 [facility] [address] [place] [address]- Allergies, Adverse Reactions, Alerts Substance Reaction Severity [...] Active Adhesive Bandage rash Active Cats Active [place] Active Contrast Dye Active Dogs Active Dust [...] each, 2 Refills, Maintenance, 12/25/20 10:09:00 EDT, [facility] #[id number], Partial fill upon patient request if the [...] stasis(Confirmed) Active 1Dr Melo rheum 2Dr Soco barber tool sharpener multiple food and drug allergies 3[facility] 4colonoscopy 06/21/2019 removed 4 polyps. if positive for ca will need colon resection 5Late April 2020 6Pt. had 2nd Pfizer vaccine on 09/19 and pain in her L hand on 10/07. Social History Social History Type Response Smoking Status Never (less than 100 in lifetime) entered on: 05/30/19 Sex
--- OUTSIDE RECORDS SUMMARY | 2023-05-02 12:16 | XMS_ITS | Continuity of Care Document ---
Author Name Unknown Organization [facility] Address [address] [facility] [place] [address]- Care Team Providers Care Butcher Or Smallgoods Maker Name Role Phone Amado GERBER, Yolanda Lance Primary Care Physician Encounter 03/16/20 - 06/24/20 [facility] [address], [address] [place] [address]- Attending Physician: Yolanda Fischer MD Admitting Physician: Yolanda Fischer MD Referring Physician: Yolanda Fischer MD Allergies, Adverse Reactions, Alerts Substance Reaction Severity Status atenolol Active codeine Active tetracycline Active penicillin Active shellfish Active Keflex Active Tums Active Levaquin Active ibuprofen Active aspirin Active Benadryl, Topical Active erythromycin Active Cefzil Active sulfADIAZINE All sulfa drugs Active metoprolol Active caffeine Active Cleocin T Active Fosamax Active Tylenol Active Horses Active Mold Active Nuts Active Soy Products Active fentaNYL Active Latex rash Active Bactrim Active Biaxin XL Active Adhesive Bandage rash Active Cats Active [place] Active Contrast Dye Active Dogs Active Dust [...] capsule, 1 Refills, Maintenance, 04/17/20 10:01:00 EST, [facility] #[id number], [place]... Start Date: 04/17/20 Status: Ordered Multivitamins [...] stasis(Confirmed) Active 1Dr Melo rheum 2Dr Soco dental treatment coordinator multiple food and drug allergies 3[facility] 4colonoscopy 06/21/2019 removed 4 polyps. if positive for ca will need colon resection Social History Social History Type Response Smoking Status Never (less than 100 in lifetime) entered on: 05/30/19 Sex Female
--- OUTSIDE RECORDS SUMMARY | 2023-05-02 12:16 | XMS_ITS | Continuity of Care Document ---
Author Name Unknown Organization [facility] Address [address] [place] [address]- Care Team Providers Care Engineer Process Name Role Phone Rahat GERBER, Gaye Macias Primary Care Physician ( [phone] Encounter [facility] Date(s): 07/16/22 - 08/15/22 [facility] [address] [place] [address]- Allergies, Adverse Reactions, Alerts Substance Reaction Severity Status atenolol Active codeine Active tetracycline Active amoxicillin Active penicillin Active caffeine Active sulfa drugs Active shellfish Active ibuprofen Active aspirin Active doxycycline 1 Moderate Active clindamycin Active erythromycin Active sulfADIAZINE All sulfa drugs Active metoprolol Active predniSONE Allergy to sulfa drugs Activ e Benadryl, Topical 2 Active Keflex Active Cefzil Active Tums Active Augmentin Active Levaquin Active Tylenol Active Contrast Dye Active Dogs Active Dust Active Horses Active Mold Active Nuts Active Cleocin T Active Fosamax Active Bactrim Active Biaxin XL Active Adhesive Bandage rash Active Cats Active [place] Active Latex rash Active Soy Products Active [...] Instructions Replace Required Details, Route to PharmacyElectronically, [facility] #[id number], 150, c... Start Date: 06/24/22 Status: Ordered lisinopril 5 mg oral tablet 5 mg, 1, tablet, By Mouth, Daily, new start 01/22/22, # 30 tablet, Refills 2, Tot. Refills 2, Maintenance, 01/22/22 15:19:00 EDT, Route to Pharmacy Electronically, [facility] #[id number], Partialfill upon patient request if the prescription [...] Care Team Personnel Name: Yin Hsu Position: [facility] Onco RN Member Role: Primary Care Nurse Name: Rahat GERBER, Gaye Macias Position: [facility] Primary Care Physician Member Role: PCP Address: Address: [address] [place] [address] Family Medicine [address] Name: Consuelo Louis RN Position: [facility] RN Member Role: Primary Care Nurse Name: Cherry Olsen MD Position: [facility] DIRECTOR OF PLAYER PERSONNEL MD Member Role: Lifetime DIRECTOR OF PLAYER PERSONNEL Physician Address: Address: [address] [place] [address] Women's Health Consumer Education Specialist - [address] Name: Maeve Jones RN Position: [facility] RN Member Role: Primary Care Nurse Care Team Related Persons Name: MEG MARTIN Address: home [address] [place] [address] Name: JAKE RODRIGUES Address: [place] [address]
--- OUTSIDE RECORDS SUMMARY | 2023-05-02 12:16 | XMS_ITS | Continuity of Care Document ---
Author Name Unknown Organization [facility] [place] Address [address] [facility] [place] [address]- Care Team Providers Care Hygiene Assistant Name Role Phone Patti HARDEN, Shandra Lance Primary Care Physician Encounter 12/27/20 - 06/14/21 [facility] [address], [address] [place] [address]- Attending Physician: Yolanda Fischer MD Admitting Physician: [...] rash Active Cats Active Contrast Dye Active [place] Active Dogs Active Dust Active Horses Active [...] each, 2 Refills, Maintenance, 12/25/20 10:09:00 EDT, [facility] #[id number], Partial fill upon patient request if the [...] stasis(Confirmed) Active 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 if positive for ca will need colon resection 5Late April 2020 6Pt. had 2nd Pfizer vaccine on 09/19 and pain in her L hand on 10/07. Social History Social History Type Response Smoking Status Never (less than 100 in lifetime) entered on: 05/30/19 Sex
--- OUTSIDE RECORDS SUMMARY | 2023-05-02 12:16 | XMS_ITS | Continuity of Care Document ---
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 Name Role Phone Lawrence GERBER, Ruma Bauer Primary Care Physician Encounter [facility] [place] Date(s): 12/14/22 - 12/17/[address] [id number]- Encounter Diagnosis Urinary tract infection(Final) - 12/14/22 Discharge Disposition: A-D/C Home Attending Physician: Khloe Cook MD Admitting Physician: Gonsalo GERBER, Akira Referring Physician: Not on Staff, Referring MD Allergies, Adverse Reactions, Alerts Substance Reaction Severity Status atenolol Active codeine Active doxycycline 1 Moderate Active tetracycline Active penicillin Active caffeine Active ibuprofen Active aspirin Active clindamycin Active erythromycin Active amoxicillin Active sulfADIAZINE All sulfa drugs Active metoprolol Active predniSONE Allergy to sulfa drugs Activ e sulfa drugs Active shellfish Active Benadryl, Topical 2 Active Keflex Active Cefzil Active Tums Active Levaquin Active Tylenol Active Cats Active Contrast Dye Active [place] Active Horses Active Mold Active Nuts Active [...] 12/17/22 11:48:00 EDT, Route to Pharmacy Electronically, [facility] #[id number], Partial fill upon patient request if the prescription is for a schedule II opioid... Start Date: 12/17/22 Stop Date: 01/16/23 Status: Ordered baclofen 10 mg oral tablet 5 mg, Tablet, By Mouth, 12/17/22 15:00:00 EDT Start Date: 12/17/22 Stop Date: 12/17/22 Status: Completed Cane See Instructions, # 1 each, Maintenance, Dx foot pain, 05/29/22 14:59:00 EST, Supply, 150, cm, 05/29/22 13:34:00 EST, Height, 54.1, kg, 06/04/21 9:38:00 EST, Dry Weight Start Date: 05/29/22 Status: Ordered diclofenac 1% topical gel 1 application, Topically, 4 times a day, PRN Pain , Moderate, # 100 Gm, 0 Refills, Maintenance, 12/17/22 11:48:00 EDT, Gel, [facility] #[id number], Partial fill upon patient request if the prescription is for a schedule II opioid drug., 152, cm,... Start Date: 12/17/22 Status: Ordered diphenhydrAMINE 50 mg oral tablet 1 tablet = 50 mg, By Mouth, Once, [address] scan, # 1 tablet, 2 Refills, Soft Stop, 10/15/22 14:04:00 EDT, [facility] #[id number], Partial fill upon patient request if the [...] 11/03/22 16:12:00 EDT, Route to Pharmacy Electronically, [facility] #[id number], Partial fill upon patient request if the prescription is for a schedule II opi... Start Date: 11/03/22 Stop Date: 11/08/22 Status: Ordered gabapentin 100 mg oral capsule 100 mg, By Mouth, Daily at bedtime, # 30 capsule, Refills 0, Tot. Refills 0, Maintenance, 12/17/22 11:48:00 EDT, Route to Pharmacy Electronically, [facility] #[id number], Partial fill upon patient request if the [...] 2 Refills, Maintenance, 09/08/22 10:06:00 EDT, Tablet, [facility] #[id number],... Start Date: 09/08/22 Status: Ordered lisinopril 5 mg oral tablet 5 mg, Tablet, By Mouth, 12/17/22 9:00:00 EDT Start Date: 12/17/22 Stop Date: 12/17/22 Status: Completed lisinopril 5 mg oral tablet 5 mg, 1, tablet, By Mouth, Daily, # 90 tablet, Refills 1, Tot. Refills 1, Maintenance, 09/02/22 9:47:00 EDT, Route to Pharmacy Electronically, [facility] #[id number], 150, cm, 08/27/22 14:11:00 EDT, Height, 45.9, kg, 08/05/22 11:18:00 EDT, Dry We... Start Date: 09/02/22 Stop Date: 03/01/23 Status: Ordered morphine 15 mg oral tablet, immediate release = 7.5 mg, By Mouth, Every 4 hours, PRN Pain , Moderate, # 5 tablet, 0 Refills, Acute 12/23/22 11:47:00 EDT, 12/17/22 11:46:00 EDT, Tablet, [facility] #[id number], Partial fill upon patient request if the prescription is for a schedule II opioid d... Start Date: 12/17/22 Stop Date: 12/23/22 Status: Ordered MorPHINE Immediate Release Tablet 7.5 mg, Tablet, By Mouth, Every 4 hours, PRN for Pain , Moderate, Routine, 12/16/22 18:07:00 EDT Start Date: 12/16/22 Stop Date: 12/18/22 Status: Discontinued Omeprazole = 40 mg, By Mouth, Daily, [...] mL, 0 Refills, Maintenance, 10/21/22 16:47:00 EDT, [facility]/pharmacy #[id number], Partial fill upon patient request if [...] pain in her L hand on 10/07. Results Orders for Microbiology Reports Name Date Blood Culture 12/14/22 Blood Culture #2 12/14/22 Urine Culture (URINE CULTURE) 12/14/22 Microbiology Reports TEST:Blood Culture STATUS:Unauthenticated BODY SITE: SOURCE:Blood COLLECTED DATE/TIME:12/14/22 3:58 PM Blood Culture SPECIMEN DESCRIPTION : BLOOD R AC SPECIAL REQUESTS : NONE CULTURE : NO GROWTH 3 DAYS REPORT STATUS : PRELIMINARY REPORT TEST:Blood Culture, Second Order STATUS:Unauthenticated BODY SITE: SOURCE:Blood COLLECTED DATE/TIME:12/14/22 3:48 PM Blood Culture, Second Order SPECIMEN DESCRIPTION : BLOOD R HAND SPECIAL REQUESTS : NONE CULTURE : NO GROWTH 3 DAYS REPORT STATUS : PRELIMINARY REPORT TEST:Urine Culture STATUS:Auth (Verified) BODY SITE: SOURCE:HIRAME COLLECTED DATE/TIME:12/14/22 9:49 AM Urine Culture SPECIMEN DESCRIPTION : BLADDER SPECIAL REQUESTS : NONE Reflexed from [id number] CULTURE : Mixed bacterial jodi, characteristic of urogenital contamination. Please consult laboratory ([id number]) within 24 hours of receipt of result if more definitive studies may be clinically indicated. REPORT STATUS : FINAL 12/15/2022 Radiology Reports * Exam Date Time Procedure Performing Provider Status 12/15/22 4:[address] Cervical Spine W/O Contrast Khloe Bethea; Auth (Verified) Notes: (CT Cervical Spine W/O Contrast) Reason For Exam: Back Pain RESULT: CT Cervical Spine W/O Contrast CT Cervical Spine W/O Contrast INDICATION: Neck pain. Rule out facet arthropathy COMPARISON: None TECHNIQUE: Spiral CT through the cervical spine without contrast, formatted in multiple planes. Theexam was performed with automatic exposure control. Images were also reconstructed on-the-fly usingthe [employer] multiplanar reconstruction tool CTDIvol Body: 7.90 mGy, DLP Body: 192 mGy*cm. FINDINGS: CERVICO-OCCIPITAL JUNCTION: Intact. ODONTOID PROCESS and C1/2 ARTICULATION: Intact. LOWER CERVICAL SPINE: No fracture or malalignment. Moderate bilateral facet arthropathy throughout the cervical spine, left worse than right. OTHER BONES: The portions of the clavicles, scapulas and upper ribs included on the exam are normal. CERVICAL SOFT TISSUES: Normal. No hematoma. LUNG APICES: Clear. No pneumothorax. IMPRESSION: Moderate bilateral facet arthropathy, left worse than right. WSN: [id number] Ordering Physician: Mitzy Church Dictated By: Cesar Patterson MD Dictated Date/Time: 12/15/22 10:54 p Reviewed By: Cesar Patterson MD Signed By: Cesar Patterson MD Signed Date/Time: 12/15/22 10:54 pm Transcribed By: KELVIN Transcribed Date/Time: 12/15/22 10:50 pm * Exam Date Time Procedure Performing Provider Status 12/14/22 7:34 AM Chest 2 Views Frontal and Lat Floridalma Huitron; Auth (Verified) Notes: (Chest 2 Views Frontal and Lat) Reason For Exam: Cough RESULT: Chest 2 Views Frontal and Lat Chest 2 Views Frontal and Lat Hx of Present Illness: worsening neck pain, body aches and cough since .; Reason: Cough; Clinical Question(s): Pneumonia COMPARISON: 07/13/2020 FINDINGS: LINES AND TUBES: None. LUNGS AND PLEURA: Clear lungs. Normal pulmonary vascularity. No pleural effusion. No pneumothorax. HEART, MEDIASTINUM AND CYNTHIA: Heart is normal in size. Normal mediastinal and hilar contour. BONES AND SOFT TISSUES: No acute abnormality. IMPRESSION: No acute abnormality. WSN: [id number] Ordering Physician: Bob Hammonds Dictated By: Xavier Newman MD Dictated Date/Time: 12/14/22 7:49 am Reviewed By: Xavier Newman MD Signed By: Xavier Newman MD Signed Date/Time: 12/14/22 7:49 am Transcribed By: KELVIN Transcribed Date/Time: 12/14/22 7:49 am Vital Signs Most recent to oldest [Reference Range]: 1 2 3 4 Height 152 cm (12/17/22 4:17 PM) 152 cm (12/17/22 10:49 AM) 152 cm (12/17/22 7:33 AM) Weight 47.3 kg (12/15/22 5:32 PM) 45 kg (12/15/22 12:08 PM) 45 kg (12/15/22 12:06 PM) Oxygen Saturation [94-100 %] 96 % (12/17/22 4:17 PM) 97 % (12/17/22 10:49 AM) 99 % (12/17/22 7:33 AM) Pulse Rate [55-90 bpm] 105 bpm *H* (12/17/22 4:17 PM) 93 bpm *H* (12/17/22 10:49 AM) 89 bpm (12/17/22 7:33 AM) Body Mass Index [18.5-24.99 kg/m2] 20.47 kg/m2 (12/15/22 5:32 PM) 19.48 kg/m2 (12/15/22 12:08 PM) 19.48 kg/m2 (12/15/22 12:06 PM) Blood Pressure [90-138/55-84 mm Hg] 138/79mm Hg (12/17/22 4:17 PM) 109/65mm Hg (12/17/22 10:49 AM) 136/82mm Hg (12/17/22 8:10 AM) Respiratory Rate [16-30 br/min] 18 br/min (12/17/22 4:17 PM) 20 br/min (12/17/22 3:40 PM) 20 br/min (12/17/22 2:59 PM) 20 br/min (12/17/22 2:59 PM) Temperature [96.8-100.4 DegF] 98.1 DegF (12/17/22 4:17 PM) 98.0 DegF (12/17/22 10:49 AM) 98.2 DegF (12/17/22 7:33 AM) Mode of Delivery (Oxygen) Room air (12/17/22 4:17 PM) Room air (12/17/22 10:49 AM) Room air (12/17/22 7:33 AM) Blood pressure sites Arm, left (12/17/22 4:17 PM) Arm, left (12/17/22 10:49 AM) Arm, left (12/17/22 7:33 AM) Temperature Route Oral (12/17/22 4:17 PM) Oral (12/17/22 10:49 AM) Oral (12/17/22 7:33 AM) Dry Weight 47.3 kg (12/15/22 5:32 PM) 45 kg (12/15/22 12:08 PM) 45 kg (12/15/22 12:06 PM) Weight Obtained Via Bed scale (12/15/22 5:32 PM) Patient/family stated (12/14/22 7:22 AM) Dry Weight Obtained Via Bed scale (12/15/22 5:32 PM) Patient/family stated (12/14/22 7:22 AM) Social History Social History Type Response Smoking Status Never (less than 100 in lifetime) entered on: 05/30/19 Sex Consult note * Bon GERBER, Vito: PERFORM, MODIFY Event Display: Consult Authored Date: [id number] Patient: ??NAUN MARTIN ? Age:??77 Years?Sex:??Female?:??1945?? Chief Complaint/Reason for Consult Neck and Shoulder pain History of Present Illness This is a 77-year-old female with a history of fibromyalgia, osteoporosis, and multiple??chronic pain complaints along with multiple allergies.?? Since last , she has been having??increased pain in her neck??and head primarily, which is very different from any previous??pain she is experienced before.?? Describes the pain as sharp/deep largely localized to posterior cervical region involving b/l trapezius area. Aggravated on movement and palpation. Associated with muscle stiffness and cramps. Denies weakness in b/l UE, endorses some numbness/tingling in L forearm which she mentions on goingsince h/o cellulitis Denies Jaw claudications/blurry vision Headache mostly dull, b/l frontal. Has been having it off and on for many months now. Mentions it is manageable without requiring any medications She has been afebrile here,??with a mild leukocytosis that resolved overnight.?? She has received 1dose of ceftriaxone for the likely UTI. Review of Systems Positive for: Neck pain, multiple tender points throughout body, diffuse myalgia, B/l knee pain, Headache, Fatigue, Generalized weakness, Numbness/tingling in L forearm Negative: numbness, tingling, weakness in any extremities otherwise, denies visual disturbances/jawclaudication. ROS otherwise negative Physical Exam Vitals & Measurements T:??98.6?F?? HR:??105??(Peripheral)?? RR:??10?? BP:??128/74?? SpO2:??99%?? HT:??152??cm?? WT:??45??kg?? BMI:??19.48?? Gen: Elderly thin female lying in bed, appears uncomfortable HEENT: atraumatic, PEERL, EOMI CVS: S1 S2 audible, no murmurs Resp: b/l fair air entry Abd: soft, non tender. Neuro: AAOx3, CN intact, VF full, Motor and sensory grossly normal b/l MSK: Multiple tender points throughout body (b/l trapezius, b/l costochondral junctions, b/l thigh, b/l shoulder and hip girdle, b/l arm) Neg Spurling sign Pain on active ROM b/l knees Able to ambulate Passive ROM free and full across b/l shoulder and knee joints, but painful Assessment/Plan 77-year-old female with a history of fibromyalgia, osteoporosis, and multiple??chronic pain complaints along with multiple allergies presented to ED with complaints of neck pain and headache found tohave UTI. ?? 1. Neck pain likely fibromyalgia exacerbation. ?? - Recommend ESR to evaluate for polymyalgia rheumatica, Temporal arteritis - X-Ray C-spine, CT C-spine without contrast - Trial of Gabapentin (Can start with 100mg QHS with first dose stat to monitor for any allergic reaction, and then gradually increase to 100 mg BID and then eventually 100mg TID - Local ice/warm compress, lidocaine patch - Gradually increase Baclofen to 10 mg TID. (monitor for sedation) Problem List/Past Medical History Ongoing Abdominal pain, [...] Osteoporosis Rectal bleeding Vaccine reaction Venous stasis Procedure/Surgical History Hemicolectomy- due to large adenoma: 2022 Colonoscopy: 06/21/19 Salpingectomy D&C - Dilatation and curettage section Hysterectomy Colpotomy Appendectomy Home Medications Barium Sulfate: See Instructions, Dispense Two 450mL bottles. Take as instructed. DiphenhydrAMINE: 50 mg = 1 tablet, By Mouth, Once, [address] scan Durable Medical Equipment: See Instructions, Dx foot pain EPINEPHrine: 0.3 mg, Intramuscular, Once Famotidine: 20 mg = 1 tablet, By Mouth, Daily Ibandronate: 150 mg = 1 tablet, By Mouth, Every 30 days, Swallow whole w/6-8oz water 1HR before first food, drink, med-Do not lie down for 1HR & until after first food Lisinopril: 5 mg = 1 tablet, By Mouth, Daily Omeprazole: 40 mg, By Mouth, Daily PredniSONE: 40 mg = 2 tablet, By Mouth, Daily, with food or milk Hospital Medications Medications (12) Active SCHEDULED: (4) Baclofen 10 mg Tablet (baclofen 10 mg oral tablet) ??5 mg, By Mouth, 3 times a day Lisinopril 5 mg Tablet (lisinopril 5 mg oral tablet) ??5 mg, By Mouth, Daily NaCl 0.9% Flush 3ml (NaCL 0.9% Flush) ??3 mL, IV Push, Every 8 hours Pantoprazole 40 mg EC Tablet (pantoprazole 40 mg oral delayed release tablet) ??40 mg, By Mouth, Daily CONTINUOUS: (1) NaCL 0.9% (1000 mL) Cont IV 1,000 mL (0.9% NaCL 1,000 mL) ??1,000 mL, IV Infusion, 75 mL/hr PRN: (7) Dextromethorphan-Guaifenesin 20 mg-200 mg/10 mL Liqu UD (Robitussin DM Liquid) ??10 mL, By Mouth, Every 4 hours Melatonin 3 mg Tablet (Melatonin Tablet) ??3 mg, By Mouth, Daily at bedtime MorPHINE 2 mg Inj Syringe (MorPHINE Inj) ??2 mg, IV Push Slowly, Every 4 hours NaCl 0.9% Flush 3ml (NaCL 0.9% Flush) ??3 mL, IV Push, Every 8 hours Polyethylene Glycol 17 Gm Powder (MiraLax Powder) ??17 Gm 1 pack/packet, By Mouth, Daily Senna 8.6 mg / Docusate 50 mg tablet (Docusate/Senna Tablet) ??1 tablet, By Mouth, 2 times a day Simethicone 80 mg Chewable Tablet (Simethicone Tablet) ??80 mg, Chew, 3 times a day Lab Results PM&R Labs ?? Tox Screen?? WBC: 8.7 k/mm3 (12/15/22) Tryptase Level: 5.1 (12/20/21) Platelet Count: 250 k/mm3 (12/15/22) ?? Sodium: 137 mmol/L (12/15/22) ?? BUN: 11 mg/dL (12/15/22) ?? Creatinine-Blood: 0.7 mg/dL (12/15/22) ?? Tryptase Level: 5.1 (12/20/21) ?? AST (SGOT): 12 units/L (11/03/22 12:51:00) AST (SGOT): 17 units/L (10/14/22 10:34:00) ALT (SGPT): 9 units/L (11/03/22 12:51:00) ALT (SGPT): 9 units/L (10/14/22 10:34:00) * Ang GERBER, Ramakrishna Bauer: PERFORM Event Display: Consult Authored Date: Attending Attestation: I have seen and evaluated this patient. ??I have discussed the case and its management with the fellow??and/or resident??as documented in the note on the day of service. ? Patient??has pain above and below the waist??involving both??left and right side, more consistent with fibromyalgia than an acute neck injury.?? Normal??upper extremity neurologic examination.?? Painwith cervical spine extension more than flexion. Not consistent with longissimus coli tendinitis, as has no complaints of odynophagia or trismus.?? She is also afebrile. Currently as pain is poorly controlled, no candidate for PT.?? Will wait until pain is better controlled to order PT.??reevaluated the patient has a UTI and is possible that her ESR will be elevated. History of??prednisone and ibuprofen??allergy, which will make it??quite difficult??to manage. ?? Activity:??Bed rest for now.?? Out of bed to chair when able ?? Bowel Regimen:??Monitor ?? Cognition/psychopharmacology:??Avoid benzodiazepines, anticholinergics and antipsychotics.? DVT prophylaxis: High risk of DVT due to immobility.? Musculoskeletal: Although her current flare is predominantly consistent with fibromyalgia episode,??we cannot fully rule out??possible cervical facet syndrome, thus we cannot get??spine imaging.? Neurology: No neurologic deficit requiring neurological consult. ?? Pain Management: As above.? Spasticity:??None. Monitor. ?? Swallow:??No dysphagia. ?? Current rehab treatment & further recommendations? Occupational Therapy:??At next level of care if deficits. ?? Physical Therapy: Not ready yet. ?? Speech Therapy: Not needed.? Disposition: To be determined History and physical note * Lynnette GERBER, Mitzy: PERFORM Event Display: History and Physical Hospital Authored Date: [id number] Patient: ??NAUN MARTIN ? Age:??77 Years?Sex:??Female?:??1945?? Chief Complaint/Reason for Consultation Neck pain and headache History of Present Illness This is a 77-year-old female with a history of fibromyalgia, osteoporosis, and multiple??chronic pain complaints along with multiple allergies.?? Since last , she has been having??increased pain in her neck??and head primarily, which is very different from any previous??pain she is experienced before.?? She was evaluated in the ER,??and there was concerns for sepsis.?? Ultimately??it looks likely that she has a UTI.?? Given a full range of motion,??and reproducible pain on palpation, itseems unlikely that she has meningitis or??an epidural abscess either.?? She has an iodinated contrast allergy, as well as severe claustrophobia making further imaging for??that consideration a challe nge.?? She has been afebrile here,??with a mild leukocytosis that resolved overnight.?? She has received 1 dose of ceftriaxone for the likely UTI. Review of Systems Multiple other chronic pain complaints??and anxiety,??nothing else came to the forefront on examining. Objective ?? Physical Exam Recent Vital Signs Temperature: 98.6 DegF (12/15/22 07:54:00) Pulse Rate:??115 bpm??High (12/15/22 07:54:00) Respiratory Rate: 18 br/min (12/15/22 07:54:00) Systolic Blood Pressure:??142 mm Hg??High (12/15/22 07:54:00) Diastolic Blood Pressure: 80 mm Hg (12/15/22 07:54:00) Oxygen Saturation: 99 % (12/15/22 07:54:00)? General Appearance: The patient is alert and in NAD. Cardiovascular: RRR S1 and S2 heard with no M/R/G. No JVD. Respiratory: ??Breath sounds clear to auscultation bilaterally. No wheezing. Good air movement throughout both lungs. GI: Soft. Nontender and nondistended. Normal bowel sounds present throughout abdomen.?? MS: ??No edema or erythema in the lower extremities. No wounds seen on the feet. Peripheral sensation intact.?? Neuro: ??No slurred speech. ??Patient seen moving their upper and lower extremities independently. Psych: Alert and oriented x3. Appropriate and pleasant. Lines: Peripheral IV in place.?? Assessment/Plan Assessment:??Frail 77-year-old female with a history of chronic pain??presenting with new??neck??and??head pain most consistent with tension type headache. ?? Neck pain without injury (M54.2):??. ?? Headache (R51.9):??Apart from the??possible sepsis that she is presenting with, there is very little??cause for concern??for an infectious process causing her symptoms.??She does have a fairly full range of motion, though does seem to have a slightly stiff neck.??Neck is extremely tender to the muscle and bone.??She has been afebrile throughout,??and her leukocytosis of 14 yesterday has completely resolved today.??She remains??mildly tachycardic.??Even with premedication for contrast??she had romana reaction recently,??and??requires an open MRI for any other imaging.??Currently my suspicion for an epidural abscess??is low. ?? I will get her some low-dose IV morphine I will start low-dose baclofen I will ask PMNR to evaluate to see if any injections may be appropriate ?? Urinary tract infection (N39.0):??I agree that the UA looks consistent with a UTI, though she did not mention any urinary symptoms to me. Given the fact that she showed up with a leukocytosis and tachycardia, I will go ahead and treat for now. We will continue to monitor the culture for positivity. ?? Discharge Planning:? Histories Allergies Allergies ?(Active and Proposed Allergies Only) sulfa drugs? (Severity: Unknown severity, Onset: Unknown) predniSONE? (Severity: Unknown severity, Onset: Unknown) ?Reactions: Allergy to sulfa drugs Augmentin? (Severity: Unknown severity, Onset: Unknown) amoxicillin? (Severity: Unknown severity, Onset: Unknown) Other Food Allergy? (Severity: Unknown severity, Onset: Unknown) ?Reactions: wheat ??rash hives itchy, other veggetables tomatoes onions cucumbers lettuce peas ?carrots, chicken broccoli Benadryl, Topical? (Severity: Unknown severity, Onset: Unknown) ?Comments: Pt States she tolerates Benadryl by mouth fine 11/06/20 clindamycin? (Severity: Unknown severity, Onset: Unknown) doxycycline? (Severity: Moderate, Onset: Unknown) ?Comments: Rash Contrast Dye? (Severity: Unknown severity, Onset: Unknown) fentaNYL? (Severity: Unknown severity, Onset: Unknown) Adhesive Bandage? (Severity: Unknown severity, Onset: Unknown) ?Reactions: rash Tums? (Severity: Unknown severity, Onset: Unknown) metoprolol? (Severity: Unknown severity, Onset: Unknown) atenolol? (Severity: Unknown severity, Onset: Unknown) Dust? (Severity: Unknown severity, Onset: Unknown) Mold? (Severity: Unknown severity, Onset: Unknown) Horses? (Severity: Unknown severity, Onset: Unknown) Dogs? (Severity: Unknown severity, Onset: Unknown) Cats? (Severity: Unknown severity, Onset: Unknown) [place]? (Severity: Unknown severity, Onset: Unknown) caffeine? (Severity: Unknown severity, Onset: Unknown) Latex? (Severity: Unknown severity, Onset: Unknown) ?Reactions: rash Nuts? (Severity: Unknown severity, Onset: Unknown) Soy Products? (Severity: Unknown severity, Onset: Unknown) shellfish? (Severity: Unknown severity, Onset: Unknown) Fosamax? (Severity: Unknown severity, Onset: Unknown) erythromycin? (Severity: Unknown severity, Onset: Unknown) penicillin? (Severity: Unknown severity, Onset: Unknown) Keflex? (Severity: Unknown severity, Onset: Unknown) Levaquin? (Severity: Unknown severity, Onset: Unknown) Tylenol? (Severity: Unknown severity, Onset: Unknown) Cefzil? (Severity: Unknown severity, Onset: Unknown) ibuprofen? (Severity: Unknown severity, Onset: Unknown) sulfADIAZINE? (Severity: Unknown severity, Onset: Unknown) ?Reactions: All sulfa drugs tetracycline? (Severity: Unknown severity, Onset: Unknown) Cleocin T? (Severity: Unknown severity, Onset: Unknown) Bactrim? (Severity: Unknown severity, Onset: Unknown) codeine? (Severity: Unknown severity, Onset: Unknown) Biaxin XL? (Severity: Unknown severity, Onset: Unknown) aspirin? (Severity: Unknown severity, Onset: Unknown) ? Past Medical History/Problem List Active Problems??(23) Abdominal pain, generalized Acid reflux Anxiety Arthritis [...] Osteoporosis Rectal bleeding Vaccine reaction Venous stasis ? Past Surgical History Hemicolectomy- due to large adenoma: 2022 Colonoscopy: 06/21/19 Salpingectomy section Hysterectomy Colpotomy Appendectomy D&C - Dilatation and curettage ? Social History Alcohol Details:??Use: Current. ??Other: none. Details:??Use: Never. Employment/School Details:??Status: Disabled, Retired. ??Other: Disabled due to Fibromyalgia 61y/o and now retired.. Exercise Details:??Self assessment: Poor condition. ??Other: Unable to walk much because of fall risk. Details:??Self assessment: Good condition. ??Regular exercise: Yes. ??Exercise type: Walking. Home/Environment Details:??Living situation: Home/Independent. ??Lives with: Spouse. Details:??Living situation: [facility]. ??Lives with: Spouse. Nutrition/Health Details:??Diet: Regular. ??Other: has lots of food allergies. Sexual Details:??Sexually involved in last 6 months: Yes. ??Other sexual concerns: 22 years.. Substance Abuse Details:??Use: Never. Details:??Use: Never. Tobacco Details:??Use: Never (less than 100 in lifetime). Details:??Use: Never smoker. ??Tobacco user in household: No. Electronic Cigarette/Vaping Details:??Electronic Cigarette Use: Never. ? Family History Mother: Cancer of ovary; Depression; Osteoporosis Sister: Depression Brother: Depression ? Medications Home Medications Barium Sulfate (Readi-Cat 2 oral suspension)?See Instructions?Dispense Two 450mL bottles. Take as instructed. DiphenhydrAMINE (diphenhydrAMINE 50 mg oral tablet)?1?tab(s)?50?Milligram?By Mouth?Once?[address] scan Durable Medical Equipment (Cane)?See Instructions?Dx foot pain EPINEPHrine (EpiPen 2-Jerman)?0.3?Milligram?Intramuscular?Once Famotidine (famotidine 20 mg oral tablet)?20?Milligram?1?tablet?By Mouth?Daily?for 5?Days Ibandronate (ibandronate 150 mg oral tablet)?1?tab(s)?150?Milligram?By Mouth?Every 30 days?Swallow whole w/6-8oz water 1HR before first food, drink, med-Do not lie down for 1HR & until after first food Lisinopril (lisinopril 5 mg oral tablet)?5?Milligram?1?tablet?By Mouth?Daily?for 90?Days Omeprazole?40?Milligram?By Mouth?Daily PredniSONE (predniSONE 20 mg oral tablet)?2?tab(s)?40?Milligram?By Mouth?Daily?for 5?Days?with food or milk ? EKG study * Event Display: EKG Authored Date: * Event Display: ECG 12-Lead Authored Date: Please click on pdf link to open report * Event Display: ECG 12-Lead Authored Date: Ventricular Rate: 125 BPM Atrial Rate: 125 BPM P-R Interval: 124 ms QRS Duration: 112 ms Q-T Interval: 334 ms QTC Calculation(Bazett): 482 ms P [place]: 29 degrees R [place]: -34 degrees T [place]: 105 degrees Sinus tachycardia Left axis deviation Incomplete left bundle branch block Left ventricular hypertrophy with repolarization abnormality ( Edu product ) Abnormal ECG When compared with ECG of 22-JAN-2022 14:11, Vent. rate has increased BY 49 BPM Confirmed by RADHA FARMER MD ([id number]) on 12/14/2022 5:50:55 PM [place]: [facility] * Paxton Hernandez MD: PERFORM Event Display: Progress Note Hospital Authored Date: Patient: ??NAUN MARTIN ? Age:??77 Years?Sex:??Female?:??1945?? History of Present Illness Discussed CT results with patient and . Sed rate only minimally elevated. Pain overall improving. Currently 4/10 neck pain. Baclofen and neurontin are helping. Ambulating to/from the bathroom without difficulty. Seen by PT and was independent. APS evaluated and are recommending outpatient MRI. Review of Systems 14 point review of systems negative except as noted above in HPI. Physical Exam Vitals & Measurements T:??98.0?F?? HR:??93??(Peripheral)?? RR:??20?? BP:??109/65?? SpO2:??97%?? HT:??152??cm?? WT:??47.3??kg?? BMI:??20.47?? Gen: Alert, oriented x 3 in NAD HEENT: no JVD, PERRL CV: Reg, no murmurs Chest: CTA bilat Abd: +BS, soft, NT Exts: trace pedal edema Neuro: CN II-XII intact MMT: giveway weakness throughout RUE:?LUE: Delt?5/5?Delt?5/5 Bi?5/5?Bi?5/5 Tri? 5/5? Tri? 5/5 Abd?5/5? Abd? 5/5 ?? RLE:? LLE: HF? 5/5? HF? 5/5 Quad?? 5/5? Quad?? 5/5 DF? 5/5? DF? 5/5 PF? 5/5? PF?5/5 [place]'s negative Babinski absent DTRs: biceps and patella 2+ bilat Assessment/Plan 77yo F with h/o fibromyalgia Activity:??Bed rest for now.?? Out of bed to chair when able ?? Bowel Regimen:??Monitor ?? Cognition/psychopharmacology:??Avoid benzodiazepines, anticholinergics and antipsychotics.? DVT prophylaxis: High risk of DVT due to immobility.? Musculoskeletal: Although her current flare is predominantly consistent with fibromyalgia episode. CT C spine showed some facet disease. No central stenosis seen. APS evaluated and recommend outpatient MRI. ?? Neurology: No neurologic deficit requiring neurological consult. ?? Pain Management: As above.??Gabapentin and Baclofen seem to be helping. Flector patch could also betried and can be obtained as an outpatient--d/w . ?? Spasticity:??None. Monitor. ? Current rehab treatment & further recommendations? Occupational Therapy:??not needed ?? Physical Therapy: outpatient ?? Speech Therapy: Not needed.? Disposition:??Home with outpatient services. ?? Problem List/Past Medical History Ongoing Abdominal pain, [...] Osteoporosis Rectal bleeding Vaccine reaction Venous stasis Procedure/Surgical History Hemicolectomy- due to large adenoma: 2022 Colonoscopy: 06/21/19 Salpingectomy section Hysterectomy Colpotomy Appendectomy D&C - Dilatation and curettage Hospital Medications Medications (12) Active SCHEDULED: (5) Baclofen 10 mg Tablet (baclofen 10 mg oral tablet) ??5 mg, By Mouth, 3 times a day Gabapentin 100 mg Capsule (gabapentin 100 mg oral capsule) ??100 mg, By Mouth, Daily at bedtime Lisinopril 5 mg Tablet (lisinopril 5 mg oral tablet) ??5 mg, By Mouth, Daily NaCl 0.9% Flush 3ml (NaCL 0.9% Flush) ??3 mL, IV Push, Every 8 hours Pantoprazole 40 mg EC Tablet (pantoprazole 40 mg oral delayed release tablet) ??40 mg, By Mouth, Daily CONTINUOUS: (0) PRN: (7) Dextromethorphan-Guaifenesin 20 mg-200 mg/10 mL Liqu UD (Robitussin DM Liquid) ??10 mL, By Mouth, Every 4 hours Melatonin 3 mg Tablet (Melatonin Tablet) ??3 mg, By Mouth, Daily at bedtime MorPHINE 15 mg Tablet (MorPHINE Immediate Release Tablet) ??7.5 mg, By Mouth, Every 4 hours NaCl 0.9% Flush 3ml (NaCL 0.9% Flush) ??3 mL, IV Push, Every 8 hours Polyethylene Glycol 17 Gm Powder (MiraLax Powder) ??17 Gm 1 pack/packet, By Mouth, Daily Senna 8.6 mg / Docusate 50 mg tablet (Docusate/Senna Tablet) ??1 tablet, By Mouth, 2 times a day Simethicone 80 mg Chewable Tablet (Simethicone Tablet) ??80 mg, Chew, 3 times a day Patient Education Titles Morphine Oral Tablet?? Neck Pain?? Patient Instructions New medicine: Baclofen three times a day gabapentin once a day at night time Voltaren/diclofenac gel topical 3 times per day as needed for pains Topical pain patches as needed for pain. Morphine 7.5mg every 4 hours as needed for severe pain. ? Follow up with your primary care doctor in 2-5 weeks Consider MRI cervical spine without contrast to evaluate for any stenosis ?? You are given physical script for physical therapy. Lab Results PM&R Labs WBC: 8.7 k/mm3 (12/15/22) Platelet Count: 250 k/mm3 (12/15/22) Sodium: 137 mmol/L (12/15/22) BUN: 11 mg/dL (12/15/22) Creatinine-Blood: 0.7 mg/dL (12/15/22) AST (SGOT): 12 units/L (11/03/22) ALT (SGPT): 9 units/L (11/03/22) * Dilan Meza RN: PERFORM, SIGN, VERIFY Event Display: Progress Note Hospital Authored Date: [id number] Patient: NAUN MARTIN Age: 77 years Sex: Female : 1945 Associated Diagnoses: None Author: Dilan Meza RN Findings Nursing Data Cardiac Data. : Cardiac Data. 12/17/2022 8:00 EDT Cardiovascular Symptoms None Nail Bed Color, Fingers [place] Nail Bed Color, Toes [place] Skin Temperature Upper Extremities Warm Skin Temperature Lower Extremities Warm Capillary Refill < 3 seconds Radial Pulse, Left Normal Radial Pulse, Right Normal Dorsalis Pedis Pulse, Left Normal Dorsalis Pedis Pulse, Right Normal monitor technician No Cardiovascular WNL except . Gastrointestinal Data. : Gastrointestinal Data. 12/17/2022 8:00 EDT Gastrointestinal Symptoms None Abdomen Soft, Non-tender, Round Last Bowel Movement 12/16/2022 Last Bowel Movement 12/16/2022 (In Error) GI WNL except Normal Bowel Pattern Every other day Normal Bowel Pattern In Error (In Error) . Genitourinary Data. : Genitourinary Data. 12/17/2022 8:00 EDT WNL In Error (In Error) . Integumentary Data. : Integumentary Data. 12/17/2022 8:00 EDT Skin Abnormality Dry, Fragile, Other: Bruising throughout body Skin Integrity Intact Sensory Perception No impairment Sensory Perception No impairment Moisture Rarely moist Activity Walks occasionally Activity Walks occasionally Activity In Error (In Error) Mobility Slightly limited Mobility Slightly limited Mobility In Error (In Error) Nutrition Adequate Friction and Shear Potential problem Jorje Score 19 Nursing Care Plan initiated/updated Yes Integumentary WNL except . Musculoskeletal Data. : Musculoskeletal Data. 12/17/2022 8:00 EDT Musculoskeletal Symptoms Weakness Musculoskeletal Symptoms In Error (In Error) Musculoskeletal WNL except Musculoskeletal In Error (In Error) . Neurological Data. : Neurological Data. 12/17/2022 8:00 EDT Tongue Disposition Midline Neurological Symptoms Weakness or loss of muscle strength, Other: Anxiety Level of Consciousness Full Consciousness Orientated to person, place, time Person, Place, Time, Event Hallucinations None Facial Symmetry Intact Characteristics of Speech Clear and normal Swallowing Difficulty None Pupil description, left Regular Pupil description, right Regular Pupil reaction, left Brisk Pupil reaction, right Brisk Strength LUE 4-Active movement against gravity & some resistance Strength RUE 4-Active movement against gravity & some resistance Strength LLE 4-Active movement against gravity & some resistance Strength RLE 4-Active movement against gravity & some resistance Tone LUE Normal Tone RUE Normal Tone LLE Normal Tone RLE Normal Sensation LUE Intact Sensation RUE Intact Sensation LLE Intact Sensation RLE Intact Movement LUE To command Movement RUE To command Movement LLE To command Movement RLE To command Gait Steady Tremors None Response Eye Opening Spontaneously Motor Response-Adult Obeys commands Verbal Response-Adult Oriented and converses [place] Coma Score 15 Stimulation None needed Pain Intensity 5 1 - 10 Pain Scale Score 5 1 - 10 Pain Scale Score In Error (In Error) Pain Comment In Error (In Error) Neuro WNL except Headache None Memory Intact Swallow - Neuro Normal . Patient Care Data. : Patient Care Data. 12/17/2022 8:00 EDT Patient's Stated Goal None state. Keep pt comfortable and safe. Patient's Stated Goal In Error (In Error) Turn and Reposition Every two hours, With partial assist Sequential Compression Device Not ordered TEDS Not indicated/Not ordered ID band on Yes Allergy band in place/verified Yes Blood Pressure/Venipuncture All 4 limbs may be used Call Chatman in Reach-Ensure Ability to Use Yes Patient Instructed on Use of Call [place] Yes Standard Safety Bed alert on, Bed in low position, Non-slip footwear, Upper/Half-length side-rails up, Wheels locked Pt Ed-Learning: Person Taught Patient, Spouse Pt Ed-Learning: Learning Readiness Yes, alert and oriented Pt Ed-Learning: Interventions Educated family member/caregiver Pt Ed-Learning: Learning Style Verbal Pain system assessment Detailed pain assessment Pain system assessment In Error (In Error) Fall Elimination No impairment Fall Agitation/Anxiety/Depression Anxious Plan: Fall Agitation/Anxiety/Depression Identify triggers for agitation/anxiety to reduce them Fall Related Sign/Symptom/Condition None Fall Cognitive Limitations No impairment Fall Sensory and Physical Function Fatigued, Weak, Requires Staff Assistance with Transfer Plan: Fall Sensory and Physical Function Encourage safe activities to maintain strength & mobility, Monitor patient's progress with physical activities Fall High Risk for Injury None of the above Total Falls Risk Score 7 Fall Risk Level High Risk Falls Prevention Plan for High Risk Fall risk decal outside of patient's room, Fall application security architect patient's chart, Apply yellow high fall risk wrist band to wrist, Ensure patient has yellow non-skid slippers, Supervise patient in the bathroom & shower, Activate bed exit alarm system, Evaluate footwear & ensure patient has non-skid slippers, Activate alternate alarm: bed (i.e. TABS), Bed in lowest locked position, Place personal care items & call chatman within reach, Instruct patient/family to request assistance with ambulatio, Instruct patient/family not to get up without assistance, Supervise the patient when ambulating or making transfers, Check that needs are met to minimize attempts to get up, Hourly rounds, Ensure safe & uncluttered environment, Communicate falls risk to all providers Pain Comment In Error (In Error) . Respiratory/Pulmonary Data. : Respiratory/Pulmonary Data. 12/17/2022 8:00 EDT Respiratory Symptoms None Respiratory effort Unlabored Chest expansion Symmetrical Accessory Muscles use No Cough Non-productive Respiratory pattern Regular Left Upper Lobe Breath Sounds Clear Right Upper Lobe Breath Sounds Clear Right Middle Lobe Breath Sounds Clear Left Lower Lobe Breath Sounds Clear Right Lower Lobe Breath Sounds Clear Respiratory distress None Respiratory Treatment(s) Cough and deep breathe Respiratory WNL except . Vital Signs : VITAL SIGNS SECTION 12/17/2022 7:33 EDT Early Warning Score 0.00 12/17/2022 7:33 EDT Temperature 98.2 DegF Temperature Route Oral Pulse Rate 89 bpm Respiratory Rate 18 br/min Systolic Blood Pressure 136 mm Hg Diastolic Blood Pressure 82 mm Hg Blood pressure sites Arm, left Mean Arterial Pressure 100 mm Hg Pulse Pressure 54 mm Hg Oxygen Saturation 99 % Mode of Delivery (Oxygen) Room air . Pain Data : PAIN SECTION 12/17/2022 8:00 EDT Pain Intensity 5 1 - 10 Pain Scale Score 5 1 - 10 Pain Scale Score In Error (In Error) . Evaluation See Biophysical Assessment in CIS for complete assessment. Will continue to monitor. * Afsaneh Camejo RN: PERFORM, SIGN, VERIFY Event Display: Progress Note Hospital Authored Date: Patient: NAUN MARTIN Age: 77 years Sex: Female : 1945 Associated Diagnoses: None Author: Afsaneh Camejo RN Findings Problem Related to Alteration in Comfort : Alteration in Comfort/new 12/16/2022 19:00 EDT Alteration in Comfort Related to Disease process Goals & Outcomes: Comfort Pt will report acceptable level of comfort & pain control, Pt will state importance of adhering to pain strategy regime, Pt will demonstrate necessary skills to manage pain, Non-verbal indicators will indicate comfort/pain control Interventions Implemented: Comfort Assess pain using appropriate pain scale/tools, Assess aggravating factors & prevent them accordingly, Assess alleviating factors & promote them accordingly BH Goals/Interventions, Comfort Yes Comfort, Problem Start 12/15/2022 19:00 Reviewed plan with, Comfort Patient Patient Progression, Comfort Pt progressing according to plan Comfort, Problem Ongoing Yes . Narrative/Incidental Pt A&OX4, pleasant and cooperative. VSS. Pt assisted into hospital [facility] as she was walking around in her clothes. Pt c/o neck pain 6/10-covered with scheduled medication> Pt requested Mophine at the time but I asked her to give the scheduled medication a try first due to her stature and age. Pt did ask again for Morphine, stating her pain was a 7/10. Pt medicated with good effect. Pt has been sleeping comfortably since then. Call chatman within reach.. Note * Dilan Meza RN: PERFORM Event Display: Discharge/Transfer Note Hospital Authored Date: Nursing Discharge Note Entered On: 12/17/2022 16:37 EDT Performed On: 12/17/2022 15:40 EDT by Dilan Meza RN Nursing Discharge Note 2 Discharge Time : 12/17/2022 15:40 EDT Discharge Level of Care at Discharge : Home/Detention/Foster Care Patient Left Unit Via : Wheelchair Patient Accompanied Off Unit with : Significant other DC Instructions Provided & Signed by Pt : Yes Patient Understands D/C Instructions : Yes Verbalized Understanding of D/C Plan By : Patient, Significant other Patient Instructions Discharge Signed : Yes Did Pt have Specialty Bed or Wound Vac : No Dilan Meza RN - 12/17/2022 16:36 EDT * Khloe Cook MD: PERFORM Event Display: Discharge/Transfer Note Hospital Authored Date: Patient: ??NAUN MARTIN ? Age:??77 Years?Sex:??Female?:??1945?? Patient Information Discharge Location: [facility] Primary Care Physician: Ruma Bravo MD Admit Date/Time: 12/14/22 16:27 Discharge Disposition Discharge Disposition: Home: No Services Discharge Diagnosis Urinary tract infection (N39.0) Fibromyalgia (M79.7) Headache (R51.9) Neck pain without injury (M54.2) ?? _ Discharge Medications Baclofen (baclofen 10 mg oral tablet)?5?Milligram?By Mouth?3 times a day?for 30?Days Barium Sulfate (Readi-Cat 2 oral suspension)?See Instructions?Dispense Two 450mL bottles. Take as instructed. Diclofenac Topical (diclofenac 1% topical gel)?1?leo?Topically?4 times a day?as needed?Pain , Moderate DiphenhydrAMINE (diphenhydrAMINE 50 mg oral tablet)?1?tab(s)?50?Milligram?By Mouth?Once?[address] scan Durable Medical Equipment (Cane)?See Instructions?Dx foot pain EPINEPHrine (EpiPen 2-Jerman)?0.3?Milligram?Intramuscular?Once Famotidine (famotidine 20 mg oral tablet)?20?Milligram?1?tablet?By Mouth?Daily?for 5?Days Gabapentin (gabapentin 100 mg oral capsule)?100?Milligram?By Mouth?Daily at bedtime?for 30?Days Ibandronate (ibandronate 150 mg oral tablet)?1?tab(s)?150?Milligram?By Mouth?Every 30 days?Swallow whole w/6-8oz water 1HR before first food, drink, med-Do not lie down for 1HR & until after first food Lisinopril (lisinopril 5 mg oral tablet)?5?Milligram?1?tablet?By Mouth?Daily?for 90?Days Miscellaneous Rx (physical therapy)?See Instructions?2 to 3 sessions per week for 8 weeks, adjust as needed. Patient has acute on chronic neck pain and fibromyalgia. Morphine (morphine 15 mg oral tablet, immediate release)?7.5?Milligram?By Mouth?Every 4hours?as needed?Pain , Moderate Omeprazole?40?Milligram?By Mouth?Daily ? Medications Started baclofen gabapentin morphine prn 5 tabs diclofenac gel Medications Discontinued none Doses Changed none Allergies Allergies ?(Active and Proposed Allergies Only) sulfa drugs? (Severity: Unknown severity, Onset: Unknown) predniSONE? (Severity: Unknown severity, Onset: Unknown) ?Reactions: Allergy to sulfa drugs Augmentin? (Severity: Unknown severity, Onset: Unknown) amoxicillin? (Severity: Unknown severity, Onset: Unknown) Other Food Allergy? (Severity: Unknown severity, Onset: Unknown) ?Reactions: wheat ??rash hives itchy, other veggetables tomatoes onions cucumbers lettuce peas ?carrots, chicken broccoli Benadryl, Topical? (Severity: Unknown severity, Onset: Unknown) ?Comments: Pt States she tolerates Benadryl by mouth fine 11/06/20 clindamycin? (Severity: Unknown severity, Onset: Unknown) doxycycline? (Severity: Moderate, Onset: Unknown) ?Comments: Rash Contrast Dye? (Severity: Unknown severity, Onset: Unknown) fentaNYL? (Severity: Unknown severity, Onset: Unknown) Adhesive Bandage? (Severity: Unknown severity, Onset: Unknown) ?Reactions: rash Tums? (Severity: Unknown severity, Onset: Unknown) metoprolol? (Severity: Unknown severity, Onset: Unknown) atenolol? (Severity: Unknown severity, Onset: Unknown) Dust? (Severity: Unknown severity, Onset: Unknown) Mold? (Severity: Unknown severity, Onset: Unknown) Horses? (Severity: Unknown severity, Onset: Unknown) Dogs? (Severity: Unknown severity, Onset: Unknown) Cats? (Severity: Unknown severity, Onset: Unknown) [place]? (Severity: Unknown severity, Onset: Unknown) caffeine? (Severity: Unknown severity, Onset: Unknown) Latex? (Severity: Unknown severity, Onset: Unknown) ?Reactions: rash Nuts? (Severity: Unknown severity, Onset: Unknown) Soy Products? (Severity: Unknown severity, Onset: Unknown) shellfish? (Severity: Unknown severity, Onset: Unknown) Fosamax? (Severity: Unknown severity, Onset: Unknown) erythromycin? (Severity: Unknown severity, Onset: Unknown) penicillin? (Severity: Unknown severity, Onset: Unknown) Keflex? (Severity: Unknown severity, Onset: Unknown) Levaquin? (Severity: Unknown severity, Onset: Unknown) Tylenol? (Severity: Unknown severity, Onset: Unknown) Cefzil? (Severity: Unknown severity, Onset: Unknown) ibuprofen? (Severity: Unknown severity, Onset: Unknown) sulfADIAZINE? (Severity: Unknown severity, Onset: Unknown) ?Reactions: All sulfa drugs tetracycline? (Severity: Unknown severity, Onset: Unknown) Cleocin T? (Severity: Unknown severity, Onset: Unknown) Bactrim? (Severity: Unknown severity, Onset: Unknown) codeine? (Severity: Unknown severity, Onset: Unknown) Biaxin XL? (Severity: Unknown severity, Onset: Unknown) aspirin? (Severity: Unknown severity, Onset: Unknown) ? PCP Follow-Up/Heads-Up admitted for acute on chronic neck pain. CT spine remarkable. APS evaluated PT script given to patient for outpatient PT Consider outpatient MRI C spine to r/o degree of??cervical stenosis Future Appointments 2022 9:15 AM EDT ?? Where: [facility] [address] [id number]- Status: Pending Hospital Course ??77-year-old female with a history of chronic pain??presenting with new??neck??and??head pain mostconsistent with tension type headache. ?? Neck pain without injury (M54.2):??.?? Headache (R51.9) Fibromyalgia exacerbation :? Admitted for acute on chronic neck pain secondary to Fibromyalgia. CT C spine with moderate arthropathy APS evaluated and consider outpatient MRI C spine to evaluate degree of spinal stenosis Low suspicion for infection. Pain improved with baclofen and gabapentin, as well as prn morphine.?? Script given to patient for outpatient PT ?? No symptoms of UTI ?? Stable for discharge. ?? Urinary tract infection (N39.0):UA looks consistent with a UTI, though she did not mention any urinary symptoms to me. Given the fact that she showed up with a leukocytosis and tachycardia, I will goahead and treat for now. We will continue to monitor the culture for positivity.- no further symptoms - urine culture- mixed jodi ?? Objective Patient's pain is mildly improved but feels better to go home Educated her on limiting pain medications for fibromyalgia. Encouraged outpatient physical therapy which patient is open to. She had 3 months of PT for her left wrist in the past with good results. Endorses improvement with baclofen and gabapentin ? Vital Signs?? Temperature: 98 DegF (12/17/22 10:49:00) Temperature Route: Oral (12/17/22 10:49:00) Pulse Rate:??93 bpm??High (12/17/22 10:49:00) Respiratory Rate: 18 br/min (12/17/22 10:49:00) Systolic Blood Pressure: 109 mm Hg (12/17/22 10:49:00) Diastolic Blood Pressure: 65 mm Hg (12/17/22 10:49:00) Blood pressure sites: Arm, left (12/17/22 10:49:00) Mean Arterial Pressure: 80 mm Hg (12/17/22 10:49:00) Pulse Pressure: 44 mm Hg (12/17/22 10:49:00) Oxygen Saturation: 97 % (12/17/22 10:49:00) Mode of Delivery (Oxygen): Room air (12/17/22 10:49:00) Early Warning Score: 0 (12/17/22 11:45:27) ? . Physical Exam Constitutional: Alert, in no acute distress. Frail, thin. Head EENT: Extraocular muscle movement intact.??Moist mucous membranes.?? Neck: Supple. Respiratory: Clear to auscultation. No wheezing or crackles. No use of accessory muscles. Cardiovascular: S1S2 regular. No murmurs, rubs or gallops. Gastrointestinal: Abdomen soft, non-tender, non-distended. Normal bowel sounds. Extremities: No lower extremity pitting??edema. No cyanosis or clubbing. Neurologic: AAOx3, Speech normal. No focal neurological deficits. Psychiatric: Normal mood and affect MSK pain on palpation of cervical, thoracic, and lumbar spine, most severe in cervical region, midline. Consultants APS Patient Instructions New medicine: Baclofen three times a day gabapentin once a day at night time Voltaren/diclofenac gel topical 3 times per day as needed for pains Topical pain patches as needed for pain. Morphine 7.5mg every 4 hours as needed for severe pain. ? Follow up with your primary care doctor in 2-5 weeks Consider MRI cervical spine without contrast to evaluate for any stenosis ?? You are given physical script for physical therapy. Post Discharge Care Diet: Regular Diet Activity: Ambulate as tolerated Code Status: full Condition: Fair Prognosis: Fair Results Discharge Labs BLOOD COUNT & DIFF WBC 8.7 k/mm3 ()?? 12/15/2022 05:06 RBC 4.54 m/mm3 ()?? 12/15/2022 05:06 Hgb 12.3 Gm/dL ()?? 12/15/2022 05:06 Hct 38.1 % ()?? 12/15/2022 05:06 MCV 83.9 femtoliters ()?? 12/15/2022 05:06 MCH 27.1 pg ()?? 12/15/2022 05:06 MCHC 32.3 g/dL (Low)?? 12/15/2022 05:06 Platelet Count 250 k/mm3 ()?? 12/15/2022 05:06 RDW-SD 43.1 femtoliters ()?? 12/15/2022 05:06 MPV 10.2 femtoliters ()?? 12/15/2022 05:06 Nucleated RBC (Automated) 0.0 #/100 WBC'S ()?? 12/15/2022 05:06 Abs. NRBC 0.0 k/mm3 ()?? 12/15/2022 05:06 Abs. Neut 12.2 k/mm3 (High)?? 12/14/2022 06:40 Abs. Lymph 0.8 k/mm3 ()?? 12/14/2022 06:40 Abs. Clark 1.2 k/mm3 (High)?? 12/14/2022 06:40 Abs. Eo 0.0 k/mm3 ()?? 12/14/2022 06:40 Abs. Baso 0.0 k/mm3 ()?? 12/14/2022 06:40 Neut % 85.0 % (High)?? 12/14/2022 06:40 Lymph % 5.6 % (Low)?? 12/14/2022 06:40 Clark % 8.5 % ()?? 12/14/2022 06:40 Eos % 0.0 % ()?? 12/14/2022 06:40 Baso % 0.3 % ()?? 12/14/2022 06:40 Imm Gran 0.6 % ()?? 12/14/2022 06:40 Abs. Imm Gran 0.1 k/mm3 ()?? 12/14/2022 06:40 ?? CARDIAC High Sensitivity Troponin (HSTnT) 14 ng/L (High)?? 12/14/2022 11:47 ? CHEM GENERAL Sodium 137 mmol/L ()?? 12/15/2022 05:06 Potassium 4.2 mmol/L ()?? 12/15/2022 05:06 Chloride 103 mmol/L ()?? 12/15/2022 05:06 Bicarbonate Level 23 mmol/L ()?? 12/15/2022 05:06 Anion Gap 11 ()?? 12/15/2022 05:06 Glucose Level 87 mg/dL ()?? 12/15/2022 05:06 BUN 11 mg/dL ()?? 12/15/2022 05:06 Creatinine-Blood 0.7 mg/dL ()?? 12/15/2022 05:06 Estimated GFR Creatinine 91 ML/MIN/1.73 M2 ()?? 12/15/2022 05:06 Calcium 8.8 mg/dL ()?? 12/15/2022 05:06 Lactate 1.4 mmol/L ()?? 12/14/2022 09:55 ? ENDOCRINE/TUMOR MARKER Serum Qual NEGATIVE mIU/mL ()?? 12/14/2022 06:40 ? HEME OTHER Sed Rate 48 mm/hr (High)?? 12/16/2022 00:43 Hold Blue Top SPECIMEN DISCARDED AFTER 4 HOURS. ()?? 12/14/2022 06:40 ?? UA/URINALYSIS Appear/Color, Urine YELLOW ()?? 12/14/2022 09:49 Clarity CLEAR (N)?? 12/14/2022 09:49 Specific [place], Urine 1.023 ()?? 12/14/2022 09:49 pH, Urine 5.5 ()?? 12/14/2022 09:49 Albumin, Urine 1+ (Abnormal)?? 12/14/2022 09:49 Glucose, Urine 3+ (Abnormal)?? 12/14/2022 09:49 Ketones, Urine 2+ (Abnormal)?? 12/14/2022 09:49 Bilirubin, Urine NEGATIVE (N)?? 12/14/2022 09:49 Hemoglobin, Urine 1+ (Abnormal)?? 12/14/2022 09:49 Nitrite, Urine NEGATIVE (N)?? 12/14/2022 09:49 Leukocyte, Urine 2+ (Abnormal)?? 12/14/2022 09:49 Urobilinogen NORMAL mg/dL (N)?? 12/14/2022 09:49 WBC's, Urine 21 /HPF (High)?? 12/14/2022 09:49 RBC's, Urine 3 /HPF ()?? 12/14/2022 09:49 Bacteria SLIGHT HPF (Abnormal)?? 12/14/2022 09:49 Squamous Epith <1 /HPF ()?? 12/14/2022 09:49 Transitional Epith <1 /HPF ()?? 12/14/2022 09:49 Mucus SLIGHT /LPF ()?? 12/14/2022 09:49 Culture Indication CULTURE INDICATED ()?? 12/14/2022 09:49 ? URINE OTHER Est Creatinine Clearance 49.48 mL/min ()?? 12/15/2022 17:42 ? VIROLOGY COVID-19 by RT-PCR NEGATIVE ()?? 12/14/2022 06:57 ? 31??minutes spent on discharge * Dilan Meza RN: PERFORM Event Display: Patient Education/Instruction Authored Date: [id number] Inpatient Adult Discharge Instructions [address] [address] Name: NAUN MARTIN : 1945 Visit: 12/14/2022 16:27:00 Current Date: 12/17/2022 15:10 Account: [id number] Inpatient Adult Discharge Instructions We would like to thank you for allowing us to assist you with your healthcare needs. The following includes patient education materials and information regarding your injury/illness. Our entire staffstrives to provide an excellent experience for our patients and their families. PLEASE ENSURE YOU FOLLOW-UP PER THE INSTRUCTIONS BELOW! ?? YOUR OPINION IS IMPORTANT TO US! Please complete the survey you may receive by mail or email. Your feedback will be used to make improvements to the healthcare experiences of our patients and their families. Surveys are administered by [employer] ?? If further treatment with your primary care physician or another doctor is recommended, it is important for you to keep the appointment. Call your primary care physician or return to the Emergency Department immediately if your condition worsens, fails to improve, or new symptoms develop. If you need to find a doctor, you can call [facility] for a referral at [phone] or toll free at [phone] ([phone]) or log in to [email or web address].. ?? You can view and manage your care through the patient portal or by using a health care leo of your choosing. [employer] is a website that allows you to securely view your medical information including your hospital discharge summary, office visit summaries, medications and follow-up visits. You can also request appointments, renew medications, and request access to your medical information using a health care leo of your choosing, or just ask a question. You can enroll at [email or web address] or register during your next office visit. You have been discharged from [facility], Patient Care Unit: D3B. If you have any questions regarding these instructions after you leave, please call us and we will be happy to assist you. [facility] Your Care Team Attending Physician Khloe Cook MD Consulting Providers Piotr GERBER, Cortez Bauer; Ramakrishna Fry MD; Vito Crockett MD; Mitzy Church MD Discharging Providers Khloe Cook MD Reason for Admission Headache, Neck pain Your Diagnosis Urinary tract infection Neck pain without injury Headache Fibromyalgia Tests Performed Below is a partial list of the tests performed during your hospitalization. You may have had other tests and procedures not included in this list. Please discuss all test results with your provider. Basic Metabolic Panel BUN Calcium Level CBC CBC w/ Differential COVID-19 (Novel Coronavirus), Rapid PCR Creatinine Electrolytes ESR Glucose Level High??Sensitivity??Troponin T Hold Blue Top Tube Lactate Level Serum Qualitative Troponin T, High Sensitivity Urinalysis Complete/Reflex Culture CT Cervical Spine W/O Contrast XR Chest 2 Views Frontal and Lat Primary Care Provider Ruma Bravo MD Advance Directive Health Care Proxy on File Yes - Health Care Proxy Yes - MOLST Discharge Vitals Temperature: 98 DegF Height: 152 cm Pulse Rate:??93 bpm??High Weight: 47.3 kg Respiratory Rate: 20 br/min Body Mass Index: 20.47 kg/m2 Respiratory Rate: 20 br/min Body surface area: 1.41 Systolic Blood Pressure: 109 mm Hg ?? Diastolic Blood Pressure: 65 mm Hg ?? Oxygen Saturation: 97 % ?? Studies Pending All tests and labs ordered during this hospital stay have been completed unless listed below. Please discuss all pending results with your provider listed above in these instructions. ?? Blood Culture Blood Culture #2 What to do next Instructions From Your Doctor New medicine: Baclofen three times a day gabapentin once a day at night time Voltaren/diclofenac gel topical 3 times per day as needed for pains Topical pain patches as needed for pain. Morphine 7.5mg every 4 hours as needed for severe pain. ? Follow up with your primary care doctor in 2-5 weeks Consider MRI cervical spine without contrast to evaluate for any stenosis ?? You are given physical script for physical therapy. Discharge Orders Diet:??Regular Diet Activity:??Ambulate as tolerated Code Status:??full Condition:??Fair Prognosis:??Fair Scheduled Follow-Up Appointments 2022 9:15 AM EDT ?? Where: [facility] [address] [address]- Status: Pending Discharge Medications NAUN MARTIN :1945 Visit Date:12/14/2022 Medications: Please continue your medications until treatment is completed or stopped by your provider. Medications not listed below should be discontinued. Discuss any questions related to medications with your provider. What How Much When Why Instructions Next Dose New Baclofen (baclofen 10 mg oral tablet) 5 Milligram Oral 3 times a day Duration: 30 Days Pickup at [facility] #[id number] 8pm 12/17/22 New Diclofenac Topical (diclofenac 1% topical gel) 1 leo Topically 4 times a day as needed for Pain , Moderate Pickup at [facility] #[id number] As Needed New Gabapentin (gabapentin 100 mg oral capsule) 100 Milligram Oral Daily at Bedtime Duration: 30 Days Pickup at [facility] #[id number] Bedtime 12/17/22 New Miscellaneous Rx (physical therapy) See instructions Fibromyalgia Neck pain without injury 2 to 3 sessions per week for 8 weeks, adjust as needed. Patient has acute on chronic neck pain and fibromyalgia. ?? Printed Prescription N/A New Morphine (morphine 15 mg oral tablet, immediate release) 7.5 Milligram Oral Every 4 hours as needed for Pain , Moderate Pickup at [facility] #[id number] As Needed after 7pm 12/17/22 Unchanged Barium Sulfate (Readi-Cat 2 oral suspension) See instructions Dispense Two 450mL bottles. Take as instructed. ?? Resume as Instructed Unchanged DiphenhydrAMINE (diphenhydrAMINE 50 mg oral tablet) 1 tab(s) Oral Once [address] scan ?? [address] Scan Unchanged Durable Medical Equipment (Cane) See instructions Dx foot pain ?? N/A Unchanged EPINEPHrine (EpiPen 2-Jerman) 0.3 Milligram Intramuscular Once As Needed Unchanged Famotidine (famotidine 20 mg oral tablet) 1 tab(s) Oral Daily Duration: 5 Days 8am 12/18/22 Unchanged Ibandronate (ibandronate 150 mg oral tablet) 1 tab(s) Oral Every 30 days Swallow whole w/ 6-8oz water 1HR before first food, drink, med-Do not lie down for 1HR & until after first food ?? 8a 12/18/22 Unchanged Lisinopril (lisinopril 5 mg oral tablet) 1 tab(s) Oral Daily Duration: 90 Days 8am 12/18/22 Unchanged Omeprazole 40 Milligram Oral Daily 8a 12/18/22 Pharmacy Information [facility] #[id number]: [address], [place] [id number] [phone] ?? What How Much When Comments Stop Taking PredniSONE (predniSONE 20 mg oral tablet) 2 tab(s) Oral Daily Duration: 5 Days with food or milk ?? Test Results Below is a partial list of the most recent Laboratory test results done prior to this discharge. You may have had other tests and procedures not included in this list. Please discuss all test resultswith your provider. Est Creatinine Clearance - 49.48 mL/min (12/15/2022) Basic Metabolic Panel (12/14/2022) ???Sodium - 132 mmol/L???Potassium - 4.6 mmol/L???Chloride - 97 mmol/L???Bicarbonate Level - 20 mmol/L???Anion Gap - 15???Glucose Level - 195 mg/dL???BUN - 11 mg/dL???Creatinine-Blood - 0.6 mg/dL???Estimated GFR Creatinine - 94 ML/MIN/1.73 M2???Calcium - 9.4 mg/dL BUN (12/15/2022) ???BUN - 11 mg/dL Calcium Level (12/15/2022) ???Calcium - 8.8 mg/dL CBC (12/15/2022) ???WBC - 8.7 k/mm3???RBC - 4.54 m/mm3???Hgb - 12.3 Gm/dL???Hct - 38.1 %???MCV - 83.9 femtoliters???MCH - 27.1 pg???MCHC - 32.3 g/dL???Platelet Count - 250 k/mm3???RDW-SD - 43.1 femtoliters???MPV - 10.2 femtoliters???Nucleated RBC (Automated) - 0.0 #/100 WBC'S???Abs. NRBC - 0.0 k/mm3 CBC w/ Differential (12/14/2022) ???WBC - 14.4 k/mm3???RBC - 5.03 m/mm3???Hgb - 13.4 Gm/dL???Hct - 41.0 %???MCV - 81.5 femtoliters???MCH - 26.6 pg???MCHC - 32.7 g/dL???Platelet Count - 265 k/mm3???RDW-SD - 40.2 femtoliters???MPV - 10.4 femtoliters???Nucleated RBC (Automated) - 0.0 #/100 WBC'S???Abs. NRBC - 0.0 k/mm3???Abs. Neut - 12.2 k/mm3???Abs. Lymph - 0.8 k/mm3???Abs. Clark - 1.2 k/mm3???Abs. Eo - 0.0 k/mm3???Abs. Baso - 0.0 k/mm3???Neut % - 85.0 %???Lymph % - 5.6 %???Clark % - 8.5 %???Eos % - 0.0 %???Baso % - 0.3 %???Imm Gran - 0.6 %???Abs. Imm Gran - 0.1 k/mm3 COVID-19 (Novel Coronavirus), Rapid PCR (12/14/2022) ???COVID-19 by RT-PCR - NEGATIVE Creatinine (12/15/2022) ???Creatinine-Blood - 0.7 mg/dL???Estimated GFR Creatinine - 91 ML/MIN/1.73 M2 Electrolytes (12/15/2022) ???Sodium - 137 mmol/L???Potassium - 4.2 mmol/L???Chloride - 103 mmol/L???Bicarbonate Level - 23 mmol/L???Anion Gap - 11 ESR (12/16/2022) ???Sed Rate - 48 mm/hr Glucose Level (12/15/2022) ???Glucose Level - 87 mg/dL High??Sensitivity??Troponin T (12/14/2022) ???High Sensitivity Troponin (HSTnT) - 16 ng/L Hold Blue Top Tube (12/14/2022) ???Hold Blue Top - SPECIMEN DISCARDED AFTER 4 HOURS. Lactate Level (12/14/2022) ???Lactate - 1.4 mmol/L Serum Qualitative (12/14/2022) ??? Serum Qual - NEGATIVE Troponin T, High Sensitivity (12/14/2022) ???High Sensitivity Troponin (HSTnT) - 14 ng/L Urinalysis Complete/Reflex Culture (12/14/2022) ???Appear/Color, Urine - YELLOW???Clarity - CLEAR???Specific [place], Urine - 1.023???pH, Urine - 5.5???Albumin, Urine - 1+???Glucose, Urine - 3+???Ketones, Urine - 2+???Bilirubin, Urine - NEGATIVE???Hemoglobin, Urine - 1+???Nitrite, Urine - NEGATIVE???Leukocyte, Urine - 2+???Urobilinogen - NORMAL???WBC's, Urine - 21 /HPF? ?RBC's, Urine - 3 /HPF? ?Bacteria - SLIGHT? ?Squamous Epith - <1 /HPF? ?Transitional Epith - <1 /HPF? ?Mucus - SLIGHT? ?Culture Indication - CULTURE INDICATED Allergies (NKA means No Known Allergies) doxycycline Adhesive Bandage??(rash) Augmentin Bactrim Benadryl, Topical Biaxin XL Cats Cefzil Cleocin T Contrast Dye [place] Dogs Dust Fosamax Horses Keflex Latex??(rash) Levaquin Mold Nuts Other Food Allergy??(chicken broccoli, other veggetables tomatoes onions cucumbers lettuce peas carrots, wheat rash hives itchy) Soy Products Tums Tylenol amoxicillin aspirin atenolol caffeine clindamycin codeine erythromycin fentaNYL ibuprofen metoprolol penicillin predniSONE??(Allergy to sulfa drugs) shellfish sulfADIAZINE??(All sulfa drugs) sulfa drugs tetracycline Problems Active Problems??(24) Abdominal pain, generalized?? Acid reflux?? Anxiety?? Arthritis?? Arthritis of carpometacarpal (CMC) joint of left thumb?? Change in bowel habits?? CMC arthritis?? Colonic polyp?? Elevated blood pressure reading without diagnosis of hypertension?? Fibromyalgia?? Hemorrhoids?? History of hemicolectomy- due to a large adenoma polyp- 2022, complicated healing?? Hypothyroid?? Lab test positive for detection of COVID-19 virus?? LBBB - Left bundle branch block?? Low back pain radiating down leg?? Mass of cecum?? MGUS (monoclonal gammopathy of unknown significance)?? Multiple antibiotic allergies?? Multiple drug allergies?? Osteoporosis?? Rectal bleeding?? Vaccine reaction?? Venous stasis?? Education Materials Below is the list of Educational Leaflet Providered with your Discharge Instructions. Valuables and Belongings I fully understand and agree that [facility] accepts no responsibility for all my personal property including clothing, toilet articles, radios, jewelry, dentures, hearing aids, rings, money, or any other property that is in my possession or is brought to me after admission. I understand certain valuables may be placed in a hospital safe for a short period of time. I understand that the hospital is not liable for loss or damage due to accident, fire, or other natural occurrence while said property is in the safe. I accept full responsibility for any personal property that I keep with me, and will not hold the hospital responsible in case of loss or disappearance. I acknowledge that i have been encouraged to send valuables and belongings home. ?? Review of Valuable and Belonging List: With patient Date for Pt to Sign Valuables/Belongings: 12/14/22 16:31:00 ?? Other Discharge Information ?? Wound Assessment?? Wound Assessment?? Wound Location I: Arm, Right Upper Wound Type I: Skin Tear ? Pulmonary Rehab Status?? Pulmonary Rehab Discharge Status?? Respiratory Rate: 20 br/min Respiratory Rate: 20 br/min ? Common Emergency Awareness Tips IS IT A STROKE? Act FAST and Check for these signs: FACE Does the face look uneven? ARM Does one arm drift down? SPEECH Does their speech sound strange? TIME Call at any sign of stroke ?? Heart Attack Signs Chest discomfort: Most heart attacks involve discomfort in the center of the chest and lasts more than a few minutes, or goes away and comes back. It can feel like uncomfortable pressure, squeezing, fullness or pain. Discomfort in upper body: Symptoms can include pain or discomfort in one or both arms, back, neck, jaw or stomach. Shortness of breath: With or without discomfort. Other signs: Breaking out in a cold sweat, nausea, or lightheaded. Remember, MINUTES DO MATTER. If you experience any of these heart attack warning signs, call to get immediate medical attention! ?? Smoking can increase your chances of developing chronic health problems and can cause harmful effects to other family members in your house. If you smoke, you are strongly encouraged to quit. Please call [facility] at [phone] or [phone] ([phone]) or log in to [email or web address] for referrals to smoking cessation programs. ?? 172 Suicide & Crisis Lifeline is available 24/11 if you or someone you know needs to find a reason to keep living. By calling 566 you'll be connected to a skilled, trained counselor at a crisis center in your area. INPATIENT DISCHARGE INSTRUCTIONS SIGNATURE NAUN ORTIZ Location:[facility] Registration Date and Time:12/14/2022 16:27 EDT Primary Care Physician: Ruma Bravo MD, Attending Physician: Khloe Cook MD, I NAUN MARTIN, have received the above patient education materials/instructions and have verbalized understanding. If ambulance or transport services are being used I further acknowledge being given a choice of service. ?? If you need to contact me, please call me at this number: . Patient/Pie Icer Machine Name: Patient/Pie Icer Machine Signature: Relationship to Patient: Witness Name/Signature: Date: * Dilan Meaz RN: PERFORM Event Display: Patient Education Leaflets Authored Date: [id number] Morphine Oral Tablet ?? [id number] Morphine Oral Tablet Uses For pain. ?? Instructions This medicine may be taken with or without food. Store at room temperature away from heat, light, and moisture. Do not keep in the bathroom. Please ask your doctor, nurse, or pharmacist how to discard unused medicines safely. To reduce constipation, eat high fiber foods, drink plenty of water and exercise. Drug interactions can change how medicines work or increase risk for side effects. Tell your healthcare providers about all medicines taken. Include prescription and qafl-dhn-krakikn medicines, vitamins, and herbal medicines. Speak with your doctor or pharmacist before starting or stopping any medicine. Tell your doctor if symptoms do not get better or if they get worse. ?? Cautions This medicine has an opioid. Opioids help many people but may cause addiction, especially if used for a long time. The addiction risk is higher if you have a substance use disorder (overuse of or addiction to drugs or alcohol). Ask your doctor about the benefits and risks. Ask your doctor or pharmacist if you should have naloxone on hand to treat opioid overdose. Teach your family or household members about the signs of an opioid overdose and how to treat it. If you stop this medicine suddenly after using it for a long time, you may have withdrawal. Your doctor may slowly lower your dose before stopping it. Tell your doctor right away if you have symptoms, such as unusual sweating, watering eyes, runny nose, chills, diarrhea, yawning, muscle aches, restlessness, anxiety, trouble sleeping, or thoughts of suicide. Tell your doctor and pharmacist if you ever had an allergic reaction to a medicine. Do not use the medication any more than instructed. If possible, avoid using with alcohol, marijuana, or other medicines that can cause dizziness or drowsiness. These include allergy/cold products, muscle relaxers, sleep aids, and pain relievers. Your ability to stay alert or to react quickly may be impaired by this medicine. Do not drive or operate machinery until you know how this medicine will affect you. This medicine passes into breast milk. Ask your doctor before . This medicine can hurt a new baby in the womb. If you become while on this medicine, tell your doctor immediately. Your doctor may switch you to a different medicine. This medicine should be used with caution in patients with breathing difficulties. Call your doctor right away if you notice slow or shallow breathing. Do not share this medicine with anyone who has not been prescribed this medicine. Some patients have serious side effects from this medicine. Ask your pharmacist to show you the information from the Food and Drug Administration (FDA) and discuss it with you. ?? Side Effects The following is a list of some common side effects from this medicine. Please speak with your doctor about what you should do if you experience these or other side effects. ??? decreased appetite ??? constipation ??? dizziness or drowsiness ??? lightheadedness ??? nausea and vomiting Call your doctor or get medical help right away if you notice any of these more serious side effects: ??? decreased awareness or responsiveness ??? breathing interruption during sleep ??? shallow, irregular breathing ??? changes in memory, mood, or thinking ??? confusion ??? fainting ??? hallucinations (unusual thoughts, seeing or hearing things that are not real) ??? seizures ??? severe stomach orbowel pain ??? unusual or unexplained tiredness or weakness ??? difficulty or discomfort urinating ??? weight loss A few people may have an allergic reaction to this medicine. Symptoms can include difficulty breathing, skin rash, itching, swelling, or severe dizziness. If you notice any of these symptoms, seek medical help quickly. ?? Extra Please speak with your doctor, nurse, or pharmacist if you have any questions about this medicine. ?? [email or web address] IMPORTANT NOTE: This document tells you briefly how to take your medicine, but it does not tell youall there is to know about it. Your doctor or pharmacist may give you other documents about your medicine. Please talk to them if you have any questions. Always follow their advice. There is a more complete description of this medicine available in Congolese. Scan this code on your smartphone or tablet or use the web address below. You can also ask your pharmacist for a printout. If you have any questions, please ask your pharmacist. The display and use of this drug information is subject to Terms of Use. Copyright(c) 2022 [employer]. ?? [employer]. All rights reserved. This information is not intended as a substitute for professional medical care. Always follow your healthcare professional's instructions. ?? * Dilan Meza RN: PERFORM Event Display: Patient Education Leaflets Authored Date: [id number] Neck Pain ?? [id number] Neck Pain Neck pain has several possible causes when there is no injury: ??? You can get a minor ligament sprain or muscle strain from a sudden minor neck movement. Sleeping with your neck in an awkward position can also cause this. ??? Some people respond to emotional stress by tensing the muscles of their neck, shoulders, and upper back. Chronic spasm in these musclescan cause neck pain and sometimes headaches. ??? Gradual??wear and tear of the joints in the spine can cause??degenerative arthritis. This can be a source of occasional or chronic neck pain. ??? The spinal disks may bulge and put pressure on a nearby spinal nerve. This can happen as a natural result of aging or repeated small injuries to the neck. The spinal disks are the cushions between each spi nal bone. This causes tingling, pain, or numbness that spreads from the neck to the shoulder, arm, or hand on one side. Acute neck pain usually gets better in 1 to 2 weeks. Neck pain related to disk disease, arthritis in the spinal joints, or spinal stenosis can become chronic and last for months or years. Spinal stenosis is narrowing of the spinal canal. X-rays are usually not ordered for the initial evaluation of neck pain. But X- rays may be done if you had a forceful physical injury, such as a car accident or fall. If pain continues and doesn???t respond to medical treatment, X-rays and other tests may be done at a later time. Less often, neck pain can be a sign of a more serious underlying medical condition. Home care ??? Rest and relax the muscles. Use a comfortable pillow that supports the head. It should also help keep the spine in a neutral position. The position of the head should not be tilted forward or backward. A rolled-up towel may help for a custom fit. ??? A soft cervical collar can help pain, especially pain with head movement. Your healthcare provider can tell you if this is appropriatefor your condition. ??? Some people find relief with??heat. Heat can be applied with either a warm shower or bath or??a moist towel heated in the microwave??and??massage.??Others prefer??cold packs. You can make an ice pack by placing ice in a plastic bag that seals at the top. Then wrap the bag with a thin towel.??Try both and use the method that feels best for??15 to??20 minutes, several times a day. ??? Whether using ice or heat, be careful that you don't injure your skin. Never put ice directly on the skin. Always wrap the ice in a towel or other type of cloth. This is very important, especially in people with poor skin sensations.? Try to reduce your stress level. Emotional stresscan lead to neck muscle tension and get in the way of or delay the healing process. ??? You may use??njow-hpj-mvyvffj pain medicine??to control pain, unless another medicine was prescribed. If you have chronic liver or kidney disease or ever had a stomach ulcer or digestive bleeding, talk with yourprovider before??using these medicines. ?? Follow-up care Follow up with your healthcare provider if your symptoms don't show signs of improvement after 1 week. Physical therapy or more tests may be needed. If X-rays, CT scans, or MRI scans were taken, you'll be told of any new findings that may affect your care. ?? Call 911 Call 911 if you have: ??? Sudden??weakness or numbness in 1 or both arms ??? Neck swelling, difficulty or painful swallowing ??? Trouble breathing ??? Chest pain ?? When to get medical advice Call your healthcare provider right away if any of these occur: ??? Pain gets worse or spreads into1 or both arms ??? Weakness of arms or legs ??? Loss of bowel or bladder control ??? Increasing headache ??? Fever of 100.4??F (38??C) or higher, or as advised by your provider ?? Last Reviewed Date: 2021 ?? 5402-8950 [employer]. All rights reserved. This information is not intended as a substitute for professional medical care. Always follow your healthcare professional's instructions. ?? Patient Care team information Care Team Personnel Name: Yin Hsu Position: [facility] Onco RN Member Role: Primary Care Nurse Name: Ruma Bravo MD Position: [facility] Physician - Primary Care Member Role: PCP Address: Address: [address] [place] [address] Family Medicine [address] Name: Shikha Rivera RN Position: [facility] RN Member Role: Primary Care Nurse Name: Cherry Olsen MD Position: [facility] SALES AND MARKETING MANAGER MD Member Role: [employer]etime SALES AND MARKETING MANAGER Physician Address: Address: [address] [place] [address] Women's Health Sales And Service Change Leader [address] Name: Maeve Jones RN Position: [facility] RN Member Role: Primary Care Nurse Name: Humberto MANCIA Attending Position: [facility] ED Medicine Name: Dhara Draper RN Position: [facility] ED RN W/OE and Tasks Member Role: Patient Care Provider Care Team Related Persons Name: MEG MARTIN Address: [address] [address] Name: JAKE RODRIGUES Address: [place] [address]
--- OUTSIDE RECORDS SUMMARY | 2023-05-02 12:16 | XMS_ITS | Continuity of Care Document ---
Author Name Unknown Organization [facility] Address [address] [place] [address]- Care Team Providers Care Security And Privacy Consultant Name Role Phone Yolanda Fischer MD Primary Care Physician Encounter [facility] Date(s): 10/18/19 - 12/10/19 [facility] [address] [place] [address]- [place] Attending Physician: Florencio Olea Jr, MD Admitting Physician: Florencio Olea Jr, MD Referring Physician: Yolanda Fischer MD Allergies, [...] rash Active Cats Active Contrast Dye Active [place] Active Dogs Active Dust Active Horses Active [...] stasis(Confirmed) Active 1Dr Melo rheum 2Dr [place] supplier manager multiple food and drug allergies 3[facility] 4colonoscopy 06/21/2019 removed 4 polyps. if positive for ca will need colon resection Social History Social History Type Response Smoking Status Never (less than 100 in lifetime) entered on: 05/30/19 Sex Female
--- OUTSIDE RECORDS SUMMARY | 2023-05-02 12:16 | XMS_ITS | Continuity of Care Document ---
Author Name Unknown Organization [facility] Address [address] [address]- Care Team Providers Care Refrigerated Cargo Clerk Name Role Phone Yolanda Fischer MD Primary Care Physician [place] [facility] [id number] Date(s): 09/04/20 - 09/11/20 [facility] [address] [address]- Attending Physician: Harmony GERBER, Merced Denny Admitting Physician: Harmony GERBER, Merced Denny Referring Physician: Harmony GERBER, Merced Denny Allergies, Adverse Reactions, Alerts Substance Reaction Severity Status atenolol Active codeine Active penicillin Active metoprolol Active Keflex Active Cefzil Active ibuprofen Active aspirin Active Benadryl, Topical Active tetracycline Active erythromycin Active shellfish Active sulfADIAZINE All sulfa drugs Active caffeine Active Cleocin T Active Fosamax Active Tums Active Levaquin Active Tylenol Active Horses Active Mold Active Nuts Active Soy Products Active fentaNYL Active Latex rash Active Bactrim Active Biaxin XL Active Adhesive Bandage rash Active Cats Active [place] Active Contrast Dye Active Dogs Active Dust [...] 3 capsule, 1 Refills, Maintenance, 04/17/20 10:01:00 [facility], [id number], [place]... 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 if positive for ca will need colon resection Social History Social History Type Response Smoking Status Never (less than 100 in lifetime) entered on: 05/30/19 Sex Female
--- OUTSIDE RECORDS SUMMARY | 2023-05-02 12:16 | XMS_ITS | Continuity of Care Document ---
Author Name Unknown Organization [facility] Address [address] [place] [address]- Care Team Providers Care Carpet Yarn Winder Operator Name Role Phone Lawrence GERBER, Ruma Bauer Primary Care Physician Encounter [facility] Date(s): 03/24/23 - 04/23/23 [facility] [address] [place] [id number] Allergies, Adverse Reactions, Alerts Substance Reaction [...] rash Active Cats Active Contrast Dye Active [place] Active Dogs Active Dust Active Horses Active [...] 1 Refills, Maintenance, 01/19/23 10:23:00 EDT, Tablet, [id number], Partial fill upon patient request if the [...] Gm, 0 Refills, Maintenance, 12/17/22 11:48:00 EDT, [facility] #[id number], Partial fill upon patient request if the prescription is for a schedule II opioid drug., 152, cm,... Start Date: 12/17/22 Status: Ordered diclofenac 1% topical gel 1 application, Topically, 4 times a day, # 100 Gm, 0 Refills, Maintenance, 12/25/22 11:12:00 EDT, [facility] #[id number], Partial fill upon patient request if the prescription is for a schedule II opioid drug., 152, cm, 12/25/22 10:26:00 EDT... Start Date: 12/25/22 Status: Ordered diphenhydrAMINE 50 mg oral tablet 1 tablet = 50 mg, By Mouth, Once, [address] scan, # 1 tablet, 2 Refills, Soft Stop, 10/15/22 14:04:00 EDT, [facility] #[id number], Partial fill upon patient request if the [...] 11/03/22 16:12:00 EDT, Route to Pharmacy Electronically, [facility] #[id number], Partial fill upon patient request if the [...] 3 Refills, Maintenance, 03/24/23 9:43:00 EST, Tablet, [facility] #[id number],... Start Date: 03/24/23 Status: Ordered lisinopril 5 mg oral tablet 5 mg, 1, tablet, By Mouth, Daily, # 90 tablet, Refills 1, Tot. Refills 1, Maintenance, 09/02/22 9:47:00 EDT, Route to Pharmacy Electronically, [facility] #[id number], 150, cm, 08/27/22 14:11:00 EDT, Height, 45.9, [...] Care Team Personnel Name: Yin Hsu Position: [facility] Onco RN Member Role: Primary Care Nurse Name: Ruma Bravo MD Position: [facility] Physician - Primary Care Member Role: PCP Address: Address: [address] [place] [address] Family [place] - [place], [place] [address] Name: Shikha Rivera RN Position: [facility] RN Member Role: Primary Care Nurse Name: Consuelo Louis RN Position: [facility] RN Member Role: Primary Care Nurse Name: Cherry Olsen MD Position: [facility] PROJECT GEOLOGIST MD Member Role: Lifetime PROJECT GEOLOGIST Physician [facility]: [facility] Health Director Of Slot Operations - [place], [place] [address] Name: Maeve Jones RN Position: [facility] RN Member Role: Primary Care Nurse Care Team Related Persons Name: MEG MARTIN Address: home [address] [place] [address] Name: JAKE RODRIGUES Address: [place] [address]
--- OUTSIDE RECORDS SUMMARY | 2023-05-02 12:16 | XMS_ITS | Continuity of Care Document ---
Author Name Unknown Organization [facility] Address [address] [place] [address]- Care Team Providers Care Radio Adjuster Name Role Phone Patti HARDEN, Shandra Lance Primary Care Physician [phone] En[place] [facility] [place] Date(s): 06/14/21 - 07/14/21 [facility] [address] [place] [id number] Attending Physician: Steve, Will Admitting Physician: [...] Active Adhesive Bandage rash Active Cats Active [place] Active Contrast Dye Active Dogs Active Dust [...] each, 2 Refills, Maintenance, 12/25/20 10:09:00 EDT, [facility] #[id number], Partial fill upon patient request if the [...] stasis(Confirmed) Active 1Dr Melo rheum 2Dr [place]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 if positive for ca will need colon resection 5Late April 2020 6Pt. had 2nd Pfizer vaccine on 09/19 and pain in her L hand on 10/07. Social History Social History Type Response Smoking Status Never (less than 100 in lifetime) entered on: 05/30/19 Sex
--- OUTSIDE RECORDS SUMMARY | 2023-05-02 12:16 | XMS_ITS | Continuity of Care Document ---
Author Name Unknown Organization [facility] Address [address] [place] [address]- Care Team Providers Care Foreign Food Specialty Cook Name Role Phone Lawrence GERBER, Ruma Bauer Primary Care Physician [place] [facility] [place] 03/25/23 - 04/24/23 [facility] [address] [place] [address] Allergies, Adverse Reactions, Alerts Substance Reaction Severity Status atenolol Active codeine Active clindamycin Active penicillin Active caffeine Active sulfa drugs Active ibuprofen Active aspirin Active doxycycline 1 Moderate Active tetracycline Active erythromycin Active amoxicillin Active sulfADIAZINE All sulfa drugs Active metoprolol Active predniSONE Allergy to sulfa drugs Activ e shellfish Active Keflex Active Cefzil Active Tums Active Levaquin Active Tylenol Active Horses Active Mold Active Nuts Active Benadryl, Topical 2 Active Cleocin T Active Fosamax Active Augmentin Active Bactrim Active Biaxin XL Active Adhesive Bandage rash Active Cats Active [place] Active Contrast Dye Active Dogs Active Dust [...] 1 Refills, Maintenance, 01/19/23 10:23:00 EDT, Tablet, [facility] #[id number], Partial fill upon patient request if the [...] Gm, 0 Refills, Maintenance, 12/17/22 11:48:00 EDT, [facility] #[id number], Partial fill upon patient request if the prescription is for a schedule II opioid drug., 152, cm,... Start Date: 12/17/22 Status: Ordered diclofenac 1% topical gel 1 application, Topically, 4 times a day, # 100 Gm, 0 Refills, Maintenance, 12/25/22 11:12:00 EDT, [facility] #[id number], Partial fill upon patient request if the prescription is for a schedule II opioid drug., 152, cm, 12/25/22 10:26:00 EDT... Start Date: 12/25/22 Status: Ordered diphenhydrAMINE 50 mg oral tablet 1 tablet = 50 mg, By Mouth, Once, [address] scan, # 1 tablet, 2 Refills, Soft Stop, 10/15/22 14:04:00 EDT, [facility] #[id number], Partial fill upon patient request if the [...] 11/03/22 16:12:00 EDT, Route to Pharmacy Electronically, [facility] #[id number], Partial fill upon patient request if the [...] 3 Refills, Maintenance, 03/24/23 9:43:00 EST, Tablet, [facility] #[id number],... Start Date: 03/24/23 Status: Ordered lisinopril 5 mg oral tablet 5 mg, 1, tablet, By Mouth, Daily, # 90 tablet, Refills 1, Tot. Refills 1, Maintenance, 09/02/22 9:47:00 EDT, Route to Pharmacy Electronically, [facility] #[id number], 150, cm, 08/27/22 14:11:00 EDT, Height, 45.9, [...] Care Member Role: PCP Address: Address: [address] [facility] [place], [place] [address] Name: Shikha Rivera RN Position: [facility] RN Member Role: Primary Care Nurse Name: Consuelo Louis RN Position: [facility] RN Member Role: Primary Care Nurse Name: Cherry Olsen MD Position: [facility] PARISH WORKER MD Member Role: Lifetime PARISH WORKER Physician [facility]: [facility] Women[facility] Health Research & Insights Executive - [place], [place] [address] Name: Maeve Jones RN Position: [facility] RN Member Role: Primary Care Nurse Care Team Related Persons Name: MEG MARTIN Address: home [address] [place] [address] Name: JAKE RODRIGUES Address: [place] [address]
--- OUTSIDE RECORDS SUMMARY | 2023-05-02 12:16 | XMS_ITS | Continuity of Care Document ---
Author Name Unknown Organization [facility] Address [address] [place] [address]- Care Team Providers Care Machine Operator Assistant Name Role Phone Rahat GERBER, Gaye Macias Primary Care Physician Encounter [facility] [place] Date(s): 04/30/22 - 05/30/22 [facility] [address] [place] [email or web address] Allergies, Adverse Reactions, Alerts Substance Reaction Severity [...] rash Active Cats Active Contrast Dye Active [place] Active Dogs Active Dust Active Horses Active [...] 01/22/22 15:19:00 EDT, Route to Pharmacy Electronically, [facility] #[id number], Partialfill upon patient request if the prescription is fo... Start Date: 01/22/22 Stop Date: 04/22/22 Status: Ordered metroNIDAZOLE 500 mg oral tablet 1 tablet = 500 mg, By Mouth, 3 times a day, # 15 tablet, 0 Refills, Maintenance, 02/27/22 16:27:00 EDT, Tablet, [facility] #[id number], Partial fill upon patient request if the [...] Care Team Personnel Name: Yin Hsu Position: [facility] Onco RN Member Role: Primary Care Nurse Name: Gaye Giang MD Position: [facility] Primary Care Physician Member Role: PCP Address: Address: [address] [place] [address] [place] [address]- Name: Consuelo Louis RN Position: [facility] RN Member Role: Primary Care Nurse Name: Cherry Olsen MD Position: [facility] SNACK BAR COOK MD Member Role: Lifetime SNACK BAR COOK Physician Address: Address: [address] [place] [address] Women's [place] [address]- Name: Maeve Jones RN Position: [facility] RN Member Role: Primary Care Nurse Care Team Related Persons Name: MEG MARTIN Address: home [address] [place] [address] Name: JAKE RODRIGUES Address: [place] [address]
--- OUTSIDE RECORDS SUMMARY | 2023-05-02 12:16 | XMS_ITS | Continuity of Care Document ---
Author Name Unknown Organization [facility] Address [address] [address]- Care Team Providers Care Departmental Secretary Name Role Phone Rahat GERBER, Gaye Macias Primary Care Physician [place] [facility] [place] [id number] Date(s): 01/16/22 - 01/23/22 [facility] [address] [address] Encounter Diagnosis Pre-op exam(Discharge Diagnosis) - 01/17/22 Attending Physician: Savanah Charlton Admitting Physician: Savanah [...] rash Active Cats Active Contrast Dye Active [place] Active Dogs Active Dust Active Horses Active [...] 01/22/22 15:19:00 EDT, [id number], Partialfill upon patient request if the prescription [...] Dates Health Status Clini jennifer Service Informant Pre-op exam Discharge Diagnosis 01/17/22 Vital Signs Most recent to oldest [Reference Range]: 1 Height 150 cm (01/16/22 11:10 AM) Weight 50 kg (01/16/22 11:10 AM) Oxygen Saturation [94-100 %] 100 % (01/16/22 11:10 AM) Pulse Rate [55-90 bpm] 93 bpm *H* (01/16/22 11:10 AM) Body Mass Index [18.5-24.99] 22.22 (01/16/22 11:10 AM) Blood Pressure [90-138/55-84 mm Hg] 159/ 83mm Hg *H* (01/16/22 11:10 AM) Blood pressure sites Arm, left (01/16/22 11:10 AM) Weight Obtained Via Standing scale (01/16/22 11:10 AM) Social History Social History Type Response Smoking Status Never (less than 100 in lifetime) entered on: 05/30/19 Sex Care Team Personnel Name: Rahat GERBER, Gaey Macias Address: [address] [place], [place] [address]
--- OUTSIDE RECORDS SUMMARY | 2023-05-02 12:17 | XMS_ITS | Continuity of Care Document ---
Author Name Unknown Organization [facility] Address [address] [facility] [place] [address]- Care Team Providers Care Electronic Installer Name Role Phone Rahat GERBER, Gaye Macias Primary Care Physician Encounter 12/19/21 - 02/20/22 [facility] [address], [address] [place] [address]- Attending Physician: Laury Espinosa MD Admitting Physician: [...] rash Active Cats Active Contrast Dye Active [place] Active Dogs Active Dust Active Horses Active [...] 01/22/22 15:19:00 EDT, Route to Pharmacy Electronically, [facility] #[id number], Partialfill upon patient request if the prescription [...] Rahat GERBER, Gaye Macias Address: Address: [address]
--- OUTSIDE RECORDS SUMMARY | 2023-05-02 12:17 | XMS_ITS | Continuity of Care Document ---
Author Name Unknown Organization [facility] Address [address] [address]- Care Team Providers Care Nozzle Cement Sprayer Helper Name Role Phone Yolanda Fischer MD Primary Care Physician Encounter [facility] [place] [id number] Date(s): 11/02/19 - 11/09/19 [facility] [address] [address]- [place] Attending Physician: Harmony GERBER, Merced Denny Admitting Physician: Harmony GERBER, Merced Denny Referring Physician: Yolanda Fischer MD Allergies, Adverse [...] Active fentaNYL Active Dust Active Cats Active [place] Active Dogs Active Immunizations Given and Recorded [...] stasis(Confirmed) Active 1Dr Melo rheum 2Dr Soc[place] sanitary 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 if positive for ca will need colon resection Vital Signs Most recent to oldest [Reference Range]: 1 Height 149 cm (11/02/19 11:31 AM) Weight 51.1 kg (11/02/19 11:31 AM) Oxygen Saturation [94-100 %] 98 % (11/02/19 11:31 AM) Pulse Rate [55-90 bpm] 81 bpm (11/02/19 11:31 AM) Body Mass Index [18.5-24.99] 23.02 (11/02/19 11:31 AM) Blood Pressure [90-138/55-84 mm Hg] 110/ 60mm Hg (11/02/19 11:31 AM) Mode of Delivery (Oxygen) Room air (11/02/19 11:31 AM) Blood pressure sites Arm, left (11/02/19 11:31 AM) Weight Obtained Via Standing scale (11/02/19 11:31 AM) Social History Social History Type Response Smoking Status Never (less than 100 in lifetime) entered on: 05/30/19 Sex Female
--- OUTSIDE RECORDS SUMMARY | 2023-05-02 12:17 | XMS_ITS | Continuity of Care Document ---
Author Name Unknown Organization [facility] Address [address] [place] [address]- Care Team Providers Care Sales And Marketing Director Name Role Phone Yolanda Fischer MD Primary Care Physician [facility] [facility] [place] Date(s): 11/15/20 - [facility] [address] [place] [address]- Encounter Diagnosis Arthritis of carpometacarpal (CMC) joint of left thumb(Discharge Diagnosis) - 11/15/20 Cellulitis of finger, left(Discharge Diagnosis) - 11/15/20 Inpatient hospitalization within last 30 days(Discharge Diagnosis) - 11/15/20 Attending Physician: Yolanda Fischer MD Allergies, Adverse Reactions, Alerts Substance Reaction Severity Status atenolol Active codeine Active doxycycline 1 Moderate Active tetracycline Active clindamycin Active penicillin Active metoprolol Active caffeine Active Benadryl, Topical 2 Active ibuprofen Active aspirin Active erythromycin Active shellfish Active sulfADIAZINE All sulfa drugs Active vancomycin 3 rash Persistent Mild Active Keflex Active Cleocin T Active Fosamax Active Cefzil Active Tums Active Levaquin Active Tylenol Active Biaxin XL Active Adhesive Bandage rash Active Cats Active [place]aplaine Active Dogs Active Dust Active Horses Active Latex rash Active Mold Active Nuts Active [place] Active Soy Products Active fentaNYL Active Contrast Dye Active Bactrim Active 1Rash 2Pt States she tolerates Benadryl [...] stasis(Confirmed) Active 1Dr Melo rheum 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 if positive for ca will need colon resection Diagnosis Diagnosis Type Effective Dates Health Status Clinical Service Informant Arthritis of carpometacarpal (CMC) joint of left thumb Discharge Diagnosis 11/15/20 Cellulitis of finger, left Discharge Diagnosis 11/15/20 Inpatient hospitalization within last 30 days Discharge Diagnosis 11/15/20 Vital Signs Most recent to oldest [Reference Range]: 1 Height 150 cm (11/15/20 1:43 PM) Weight 51.1 kg (11/15/20 1:43 PM) Oxygen Saturation [94-100 %] 98 % (11/15/20 1:43 PM) Pulse Rate [55-90 bpm] 100 bpm *H* (11/15/20 1:43 PM) Body Mass Index [18.5-24.99] 22.71 (11/15/20 1:43 PM) Blood Pressure [90-138/55-84 mm Hg] 137/ 77mm Hg (11/15/20 1:43 PM) Respiratory Rate [16-30 br/min] 20 br/mi n (11/15/20 1:43 PM) Blood pressure sites Arm, left (11/15/20 1:43 PM) Weight Obtained Via Standing scale (11/15/20 1:43 PM) Social History Social History Type Response Smoking Status Never (less than 100 in lifetime) entered on: 05/30/19 Sex
--- OUTSIDE RECORDS SUMMARY | 2023-05-02 12:17 | XMS_ITS | Continuity of Care Document ---
Author Name Unknown Organization [facility] Address [address] [place] [address]- Care Team Providers Care Environmental Research Scientist Name Role Phone Yolanda Fischer MD Primary Care Physician Encounter [facility] [place] Date(s): 10/13/20 - 11/12/[address] [address]- Attending Physician: Not on Staff, Attending MD Admitting Physician: Not on Staff, Admitting MD Referring Physician: Not on Staff, Referring [...] rash Active Cats Active Contrast Dye Active [place] Active Dogs Active Dust Active Horses Active [...] 11/16/20 7:37:00 EDT, 11/06/20 7:37:00 EDT, Tablet, [facility], Partial fill upon patient [...] stasis(Confirmed) Active 1Dr Melo rheum 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 if positive for ca will need colon resection Social History Social History Type Response Smoking Status Never (less than 100 in lifetime) entered on: 05/30/19 Sex
--- OUTSIDE RECORDS SUMMARY | 2023-05-02 12:17 | XMS_ITS | Continuity of Care Document ---
Author Name Unknown Organization [facility] Address [address] [place] [address]- Care Team Providers Care Package Reinspector Name Role Phone Yolanda Fischer MD Primary Care Physician Encounter [facility] Date(s): 11/26/20 - 01/27/21 [facility] [address] [place] [address]- Discharge Disposition: A-D/C Home Attending Physician: Aleks Barger MD Admitting Physician: Aleks Barger MD Referring Physician: Yolanda Fischer MD Allergies, Adverse Reactions, Alerts Substance Reaction Severity Status atenolol Active codeine Active penicillin Active sulfADIAZINE All sulfa drugs Active shellfish Active Keflex Active Cleocin T Active ibuprofen Active aspirin Active doxycycline 1 Moderate Active tetracycline Active clindamycin Active erythromycin Active vancomycin 2 rash Persistent Mild Active metoprolol Active caffeine Active Benadryl, Topical 3 Active Fosamax Active Cefzil Active Tums Active Levaquin Active Tylenol Active Cats Active [place] Active Horses Active Mold Active Nuts Active [...] each, 2 Refills, Maintenance, 12/25/20 10:09:00 EDT, [id number], Partial fill upon patient request if the [...] kit, 0 Refills, Maintenance, 01/14/21 12:14:00 EDT, [email or web address] #[id number], Partial fill upon patient request if the [...] stasis(Confirmed) Active 1Dr Melo rheum 2Dr Soco converter skimmer multiple food and drug allergies [facility] 4colonoscopy 06/21/2019 removed 4 polyps. if positive for ca will need colon resection Vital Signs Most recent to oldest [Reference Range]: 1 Height 150 cm (11/27/20 9:54 AM) Weight 52.1 kg (11/27/20 9:54 AM) Pulse Rate [55-90 bpm] 83 bpm (11/27/20 9:54 AM) Body Mass Index [18.5-24.99] 23.16 (11/27/20 9:54 AM) Blood Pressure [90-138/55-84 mm Hg] 129/ 65mm Hg (11/27/20 9:54 AM) Temperature [96.8-100.4 DegF] 98.4 DegF (11/27/20 9:54 AM) Blood pressure sites Arm, right (11/27/20 9:54 AM) Temperature Route Temporal (11/27/20 9:54 AM) Dry Weight 52.1 kg (11/27/20 9:54 AM) Weight Obtained Via Standing scale (11/27/20 9:54 AM) Dry Weight Obtained Via Standing scale (11/27/20 9:54 AM) Social History Social History Type Response Smoking Status Never (less than 100 in lifetime) entered on: 05/30/19 Sex
--- OUTSIDE RECORDS SUMMARY | 2023-05-02 12:17 | XMS_ITS | Continuity of Care Document ---
Author Name Unknown Organization [facility] Address [address] [place] [address]- Care Team Providers Care Canteen Manager Name Role Phone Yolanda Fischer MD Primary Care Physician [facility] [facility] Date(s): 06/23/19 - 10/12/19 [facility] [address] [place] [address]- [facility] Attending Physician: Jessica Chaparro MD Admitting Physician: Jessica Chaparro MD Referring Physician: Yolanda Fischer MD Allergies, [...] Active Adhesive Bandage rash Active Cats Active [place] Active Dogs Active Dust Active Horses Active [...] stasis(Confirmed) Active 1Dr Melo rheum 2Dr Soco registered nurse cardiovascular icu multiple food and drug allergies 3[facility] 4colonoscopy 06/21/2019 removed 4 polyps. if positive for ca will need colon resection Social History Social History Type Response Smoking Status Never (less than 100 in lifetime) entered on: 05/30/19 Sex Female
--- OUTSIDE RECORDS SUMMARY | 2023-05-02 12:17 | XMS_ITS | Continuity of Care Document ---
Author Name Unknown Organization [facility] Address [address] [address]- Care Team Providers Care Italian Tutor Name Role Phone Yolanda Fischer MD Primary Care Physician En[place] [facility] [id number] Date(s): 07/24/20 - 09/28/20 [facility] [address] [address]- Attending Physician: Savanah Charlton Admitting Physician: Savanah Charlton Referring Physician: Savanah Charlton Allergies, Adverse Reactions, Alerts Substance Reaction Severity Status atenolol Active codeine Active tetracycline Active penicillin Active caffeine Active Keflex Active Fosamax Active Cefzil Active ibuprofen Active aspirin Active Benadryl, Topical Active erythromycin Active shellfish Active sulfADIAZINE All sulfa drugs Active metoprolol Active Cleocin T Active Tums Active Levaquin Active Tylenol Active Horses Active Mold Active Nuts Active Soy Products Active fentaNYL Active Latex rash Active Bactrim Active Biaxin XL Active Adhesive Bandage rash Active Cats Active [place] Active Contrast Dye Active Dogs Active Dust [...] capsule, 1 Refills, Maintenance, 04/17/20 10:01:00 EST, [facility] #[id number], [place]... Start Date: 04/17/20 Status: Ordered Multivitamins [...] stasis(Confirmed) Active 1Dr Melo rheum 2Dr Soco twx operator multiple food and drug allergies [facility] 4colonoscopy 06/21/2019 removed 4 polyps. if positive for ca will need colon resection Social History Social History Type Response Smoking Status Never (less than 100 in lifetime) entered on: 05/30/19 Sex Female
--- OUTSIDE RECORDS SUMMARY | 2023-05-02 12:17 | XMS_ITS | Continuity of Care Document ---
Author Name Unknown Organization [facility] Address [address] [place] [address]- Care Team Providers Care Manager Radio Name Role Phone Yolanda Fischer MD Primary Care Physician Encounter [facility] Date(s): 10/12/19 - 11/11/19 [facility] [address] [place] [address]- [facility] Attending Physician: AdmWill mcdonough Admitting Physician: AdmtrWill Referring Physician: Admtr, ArFracisco Allergies, Adverse Reactions, Alerts Substance Reaction Severity [...] rash Active Cats Active Contrast Dye Active [place] Active Dogs Active Dust Active Horses Active [...] 11/10/19 12:27:00 EDT, Route to Pharmacy Electronically, [facility] #[id number], Partial fill upon... 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 if positive for ca will need colon resection Social History Social History Type Response Smoking Status Never (less than 100 in lifetime) entered on: 05/30/19 Sex Female
--- OUTSIDE RECORDS SUMMARY | 2023-05-02 12:17 | XMS_ITS | Continuity of Care Document ---
Author Name Unknown Organization [facility] Address [address] [place] [address]- Care Team Providers Care Enterprise Architect Manager Name Role Phone Yolanda Fischer MD Primary Care Physician Encounter [facility] Date(s): 09/28/19 - 12/03/19 [facility] [address] [place] [address]- [facility] Attending Physician: Mazin Del Rosario MD Referring [...] rash Active Cats Active Contrast Dye Active [place] Active Dogs Active Dust Active Horses Active [...] stasis(Confirmed) Active 1Dr Melo rheum 2Dr Soco inspector multiple food and drug allergies [facility] 4colonoscopy 06/21/2019 removed 4 polyps. if positive for ca will need colon resection Social History Social History Type Response Smoking Status Never (less than 100 in lifetime) entered on: 05/30/19 Sex Female
--- OUTSIDE RECORDS SUMMARY | 2023-05-02 12:17 | XMS_ITS | Continuity of Care Document ---
Author Name Unknown Organization [facility] Address [address] [place] [address]- Care Team Providers Care Refractory Products Supervisor Name Role Phone Lawrence GERBER, Ruma Bauer Primary Care Physician En[facility] Date(s): 12/18/22 - 01/17/23 [facility] [address] [place] [address]- Allergies, Adverse Reactions, Alerts Substance Reaction Severity [...] Active Adhesive Bandage rash Active Cats Active [place] Active Latex rash Active Soy Products Active [...] 12/17/22 11:48:00 EDT, Route to Pharmacy Electronically, [facility] #[id number], Partial fill upon patient request if the [...] Gm, 0 Refills, Maintenance, 12/17/22 11:48:00 EDT, [facility] #[id number], Partial fill upon patient request if the prescription is for a schedule II opioid drug., 152, cm,... Start Date: 12/17/22 Status: Ordered diclofenac 1% topical gel 1 application, Topically, 4 times a day, # 100 Gm, 0 Refills, Maintenance, 12/25/22 11:12:00 EDT, [facility] #12134, Partial fill upon patient request if the prescription is for a schedule II opioid drug., 152, cm, 12/25/22 10:26:00 EDT... Start Date: 12/25/22 Status: Ordered diphenhydrAMINE 50 mg oral tablet 1 tablet = 50 mg, By Mouth, Once, [address] scan, # 1 tablet, 2 Refills, Soft Stop, 10/15/22 14:04:00 EDT, [facility] #[id number], Partial fill upon patient request if the [...] 11/03/22 16:12:00 EDT, Route to Pharmacy Electronically, [facility] #[id number], Partial fill upon patient request if the prescription is for a schedule II opi... Start Date: 11/03/22 Stop Date: 11/08/22 Status: Ordered gabapentin 100 mg oral capsule 100 mg, By Mouth, Daily at bedtime, # 30 capsule, Refills 0, Tot. Refills 0, Maintenance, 12/17/22 11:48:00 EDT, Route to Pharmacy Electronically, [facility] #[id number], Partial fill upon patient request if the [...] 2 Refills, Maintenance, 09/08/22 10:06:00 EDT, Tablet, [facility] #[id number],... Start Date: 09/08/22 Status: Ordered lisinopril 5 mg oral tablet 5 mg, 1, tablet, By Mouth, Daily, # 90 tablet, Refills 1, Tot. Refills 1, Maintenance, 09/02/22 9:47:00 EDT, Route to Pharmacy Electronically, [facility] #[id number], 150, cm, 08/27/22 14:11:00 EDT, Height, 45.9, [...] Primary Care Member Role: PCP Address: Address: [address] [place] [id number] Name: Shikha Rivera RN Position: [facility] RN Member Role: Primary Care Nurse Name: Cherry Olsen MD Position: [facility] IUSS MASTER ANALYST MD Member Role: Lifetime IUSS MASTER ANALYST Physician Address: Address: [address] [place] [address] [facility] [place] [address]- Name: Maeve Jones RN Position: S RN Member Role: Primary Care Nurse Care Team Related Persons Name: MARTINMEG Address: home [address] [place] [id number] Name: JAKE RODRIGUES Address: [place] [address]
--- OUTSIDE RECORDS SUMMARY | 2023-05-02 12:17 | XMS_ITS | Continuity of Care Document ---
Author Name Unknown Organization [facility] Address [address] [place] [address]- Care Team Providers Care Irrigation District Manager Name Role Phone Yolanda Fischer MD Primary Care Physician En[place] [facility] [place] Date(s): 09/02/19 - 09/02/[address] [address] Encounter Diagnosis Arthralgia(Final) - 09/02/19 Myalgia(Final) - 09/02/19 Acute streptococcal pharyngitis(Final) - 09/02/19 Discharge Disposition: A-D/C Home Attending Physician: Robb Hassan MD Admitting Physician: Robb Hassan MD Referring Physician: Not on Staff, Referring [...] Active Adhesive Bandage rash Active Cats Active [place] Active Dogs Active Dust Active Horses Active [...] 09/12/19 13:02:00 EDT, 09/02/19 13:02:00 EDT, Capsule, [id number], 152, cm, 09/02/19 10:31:00EDT, Height, 48, kg, [...] bleeding(Confirmed) Active 1Dr Melo rheum 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 if positive for ca will need colon resection Results Orders for Microbiology Reports Name Date Group A Strep Screen and Culture 09/02/19 Microbiology Reports TEST:Group A Strep Screen and Culture STATUS:Auth (Verified) BODY SITE: SOURCE:THROAT COLLECTED DATE/TIME:09/02/19 10:30 AM Group A Strep Screen and Culture SPECIMEN DESCRIPTION : THROAT SWAB SPECIAL REQUESTS : NONE DIRECT EXAM : RAPID GROUP A SCREEN IS POSITIVE, CULTURE NOT INDICATED. CULTURE : RAPID GROUP A SCREEN IS POSITIVE, CULTURE NOT INDICATED. REPORT STATUS : FINAL 09/02/2019 Radiology Reports * Exam Date Time Procedure Performing Provider Status 09/02/19 11:09 AM Chest Portable Floridalma Huitron; Omari ( Verified) Notes: (Chest Portable) Reason For Exam: Cough RESULT: Chest Portable Chest Portable Refer to EMR; Reason: Cough; Clinical Question(s): Pneumonia; Hx of Present Illness: pT ARRIVES REPORTING HEADACHE, JOINT PAIN, CONGESTION, RUNNY NOSE SINCE JULY. PT WAS TEST 2 WEEKS FOR COVID AND WAS NEGATIVE. DENIES SOB. PT HAS SEEN PCP. ASKED PT TO COME TO ED SINCE S S STILL PERSISTED.;Other Objective Findings: AMBULATORY. ALERT, ORIENTATED X 4. MAEI. UNLABORED, REGULAR AND EVEN RESPI COMPARISON: None. FINDINGS: LINES AND TUBES: None. LUNGS AND PLEURA: Mild bilateral apical pleural thickening and scarring. Lungs otherwise clear. Normal pulmonary vascularity. No pleural effusion. No pneumothorax. HEART, MEDIASTINUM AND CYNTHIA: Heart is normal in size. Normal mediastinal and hilar contour. BONES AND SOFT TISSUES: No acute abnormality. IMPRESSION: No acute abnormality. WSN: [id number] Ordering Physician: Dennis Mendez Dictated By: Chico Laughlin MD Dictated Date/Time: 09/02/19 11:18 a Reviewed By: Chico Laughlin MD Signed By: Chico Laughlin MD Signed Date/Time: 09/02/19 11:18 am Transcribed By: KELVIN Transcribed Date/Time: 09/02/19 11:12 am Vital Signs Most recent to oldest [Reference Range]: 1 2 3 Height 152 cm (09/02/19 1:29 PM) 152 cm (09/02/19 10:31 AM) 152 cm (09/02/19 9:42 AM) Weight 48 kg (09/02/19 1:29 PM) 48 kg (09/02/19 10:31 AM) 48 kg (09/02/19 9:42 AM) Oxygen Saturation [94-100 %] 100 % (09/02/19 1:29 PM) 99 % (09/02/19 9:42 AM) 100 % (09/02/19 9:17 AM) Pulse Rate [55-90 bpm] 89 bpm (09/02/19 1:29 PM) 99 bpm *H* (09/02/19 9:42 AM) 100 bpm *H* (09/02/19 9:17 AM) Body Mass Index [18.5-24.99] 20.78 (09/02/19 1:29 PM) 20.78 (09/02/19 10:31 AM) Blood Pressure [90-138/55-84 mm Hg] 131/72mm Hg (09/02/19 1:29 PM) 126/74mm Hg (09/02/19 9:42 AM) Respiratory Rate [16-30 br/min] 20 br/min (09/02/19 1:29 PM) 17 br/min (09/02/19 9:42 AM) Temperature [96.8-100.4 DegF] 97.7 DegF (09/02/19 1:29 PM) 98.2 DegF (09/02/19 10:31 AM) Mode of Delivery (Oxygen) Room air (09/02/19 1:29 PM) Room air (09/02/19 9:42 AM) Room air (09/02/19 9:17 AM) Blood pressure sites Arm, left (09/02/19 1:29 PM) Temperature Route Oral (09/02/19 1:29 PM) Oral (09/02/19 10:31 AM) Oral (09/02/19 9:42 AM) Dry Weight 48 kg (09/02/19 1:29 PM) 48 kg (09/02/19 10:31 AM) 48 kg (09/02/19 9:42 AM) Weight Obtained Via Patient/family state d (09/02/19 9:42 AM) Social History Social History Type Response Smoking Status Never (less than 100 in lifetime) entered on: 05/30/19 Sex Female
--- OUTSIDE RECORDS SUMMARY | 2023-05-02 12:17 | XMS_ITS | Continuity of Care Document ---
Author Name Unknown Organization [facility] ter Address [address] [place] [address]- Care Team Providers Care Timber Cutter Name Role Phone Ruma Bravo MD Primary Care Physician [place] [facility] Date(s): 07/30/22 - 02/20/[address] [address]- Attending Physician: Rod Khan MD Admitting Physician: Rod Khan MD Referring Physician: Rod Khan MD Allergies, Adverse Reactions, Alerts Substance Reaction Severity Status atenolol Active codeine Active penicillin Active caffeine Active ibuprofen Active [...] Active Adhesive Bandage rash Active Cats Active [place] Active Contrast Dye Active Dogs Active Dust [...] 1 Refills, Maintenance, 01/19/23 10:23:00 EDT, Tablet, [facility] #[id number], Partial fill upon patient request if the [...] 0 Refills, Maintenance, 12/17/22 11:48:00 EDT, Gel, [facility] #[id number], Partial fill upon patient request if the prescription is for a schedule II opioid drug., 152, cm,... Start Date: 12/17/22 Status: Ordered diclofenac 1% topical gel 1 application, Topically, 4 times a day, # 100 Gm, 0 Refills, Maintenance, 12/25/22 11:12:00 EDT, Gel, [facility] #[id number], Partial fill upon patient request if the prescription is for a schedule II opioid drug., 152, cm, 12/25/22 10:26:00 EDT... Start Date: 12/25/22 Status: Ordered diphenhydrAMINE 50 mg oral tablet 1 tablet = 50 mg, By Mouth, Once, [address] scan, # 1 tablet, 2 Refills, Soft Stop, 10/15/22 14:04:00 EDT, [facility] #[id number], Partial fill upon patient request if the [...] 11/03/22 16:12:00 EDT, Route to Pharmacy Electronically, [facility] #[id number], Partial fill upon patient request if the [...] 2 Refills, Maintenance, 09/08/22 10:06:00 EDT, Tablet, [facility] #[id number],... Start Date: 09/08/22 Status: Ordered lisinopril 5 mg oral tablet 5 mg, 1, tablet, By Mouth, Daily, # 90 tablet, Refills 1, Tot. Refills 1, Maintenance, 09/02/22 9:47:00 EDT, Route to Pharmacy Electronically, [facility] #[id number], 150, cm, 08/27/22 14:11:00 EDT, Height, 45.9, [...] Care Team Personnel Name: Yin Hsu Position: [facility] Onco RN Member Role: Primary Care Nurse Name: Ruma Bravo MD Position: [facility] Physician - Primary Care Member Role: PCP Address: Address: [address] [place] [address] Name: Shikha Rivera RN Position: [facility] RN Member Role: Primary Care Nurse Name: Consuelo Louis RN Position: [facility] RN Member Role: Primary Care Nurse Name: Cherry Olsen MD Position: [facility] DATA STORAGE SPECIALIST MD Member Role: Lifetime DATA STORAGE SPECIALIST Physician Address: Address: [address] [place] [address] [facility] [address]- Name: Maeve Jones RN Position: [facility] RN Member Role: Primary Care Nurse Care Team Related Persons Name: MEG MARTIN Address: home [address] [place] [id number] Name: JAKE RODRIGUES Address: [place] [address]
--- OUTSIDE RECORDS SUMMARY | 2023-05-02 12:17 | XMS_ITS | Continuity of Care Document ---
Author Name Unknown Organization [facility] Address [address] [address]- Care Team Providers Care Counselor Supervisor Name Role Phone Rahat GERBER, Gaye Macias Primary Care Physician ( [phone] [place] [facility] [place] 12[place]21 [facility] [address] [address]- Attending Physician: Admsharonda, Will Admitting Physician: Admtr, Ar8 Referring Physician: [...] rash Active Cats Active Contrast Dye Active [place] Active Dogs Active Dust Active Horses Active [...] Name: Rahat GERBER, Gaye Macias Address: [address] [place] [address]-
--- OUTSIDE RECORDS SUMMARY | 2023-05-02 12:17 | XMS_ITS | Continuity of Care Document ---
Author Name Unknown Organization [facility] Address [address] [place] [address]- Care Team Providers Care Metal Drill Operator Name Role Phone Lawrence GERBER, Ruma Bauer Primary Care Physician Encounter [facility] R [id number] Date(s): 06/10/22 - 10/05/22 [facility] Care [address] [place] [address]- Discharge Disposition: A-D/C Home Attending Physician: Aleks [...] rash Active Cats Active Contrast Dye Active Stow Active Dogs Active Dust Active Horses Active [...] 2 Refills, Maintenance, 09/08/22 10:06:00 EDT, Tablet, [facility] #[id number],... Start Date: 09/08/22 Status: Ordered lisinopril 5 mg oral tablet 5 mg, 1, tablet, By Mouth, Daily, new start 01/22/22, # 30 tablet, Refills 2, Tot. Refills 2, Maintenance, 01/22/22 15:19:00 EDT, Route to Pharmacy Electronically, [facility] #[id number], Partialfill upon patient request if the prescription is fo... Start Date: 01/22/22 Stop Date: 04/22/22 Status: Ordered lisinopril 5 mg oral tablet 5 mg, 1, tablet, By Mouth, Daily, # 90 tablet, Refills 1, Tot. Refills 1, Maintenance, 09/02/22 9:47:00 EDT, Route to Pharmacy Electronically, [facility] #[id number], 150, cm, 08/27/22 14:11:00 EDT, Height, 45.9, [...] [Reference Range]: 1 2 Height 150 cm (08/05/22 11:18 AM) 150 cm (07/01/22 10:13 AM) Weight 45.9 kg (08/05/22 11:18 AM) 46.6 kg (07/01/22 10:13 AM) Oxygen Saturation [94-100 %] 97 % (08/05/22 11:18 AM) 100 % (07/01/22 10:13 AM) Pulse Rate [55-90 bpm] 93 bpm *H* (08/05/22 11:18 AM) 84 bpm (07/01/22 10:13 AM) Body Mass Index [18.5-24.99 kg/m2] 20.4 kg/m2 (08/05/22 11:18 AM) 20.71 kg/m2 (07/01/22 10:13 AM) Blood Pressure [90-138/55-84 mm Hg] 148/ 81mm Hg *H* (08/05/22 11:18 AM) 140/61mm Hg *H* (07/01/22 10:13 AM) Temperature [96.8-100.4 DegF] 97.6 DegF (08/05/22 11:18 AM) 97.6 DegF (07/01/22 10:13 AM) Mode of Delivery (Oxygen) Room air (08/05/22 11:18 AM) Room air (07/01/22 10:13 AM) Blood pressure sites Arm, left (08/05/22 11:18 AM) Arm, right (07/01/22 10:13 AM) Temperature Route Temporal (08/05/22 11:18 AM) Temporal (07/01/22 10:13 AM) Dry Weight 45.9 kg (08/05/22 11:18 AM) 46.6 kg (07/01/22 10:13 AM) Weight Obtained Via Standing scale (08/05/22 11:18 AM) Standing scale (07/01/22 10:13 AM) Dry Weight Obtained Via Standing scale (08/05/22 11:18 AM) Standing scale (07/01/22 10:13 AM) Social History Social History Type Response Smoking Status Never (less than 100 in lifetime) entered on: 05/30/19 Sex Note * Jemima Ospina: PERFORM, SIGN, VERIFY Event Display: Patient Education/Instruction Authored Date: [id number] [facility] *Heme/Onc Adult Clinical Summary Name NAUN MARTIN Age 77 Years 1945 PCP Rahat GERBER, Gaye Macias PCP Visit Date 06/10/2022 09:09:00 Additional Instructions: Scheduled Appointments?? Future Appointments ?JAGDISH??[place] ?[address]??[place],??[place],??[address] ?Phone:??[phone]?Fax:??-- ?Appt. Date:??08/20/2022?1:00 PM ?Scheduled Provider:??JAGDISH Noho BD ?JAGDISH??[place] ?[address]??[place],??[place],??[address] ?Phone:??[phone]?Fax:??-- ?Appt. Date:??08/27/2022?10:15 AM ?Scheduled Provider:??JAGDISH N[facility] ?[facility] ?[address]??[place],??[place],??[address] ?Phone:??[phone]?Fax:??-- ?Appt. Date:??09/02/2022?10:45 AM ?Scheduled Provider:??[facility] Rm [facility] ?*[facility] ?Phone:??--?Fax:??-- ?Appt. Date:??09/08/2022?9:30 AM ?Scheduled Provider:??Laury Espinosa MD Follow-Up Instructions ?? With: Address: When: Aleks Dooley [facility] [place] [address] Business (1) 02/03/2023 9:15 AM With: Address: When: Aleks Dooley [facility] [place] [address] Business (1) 06/30/2023 10:15 AM Diagnosis Medications: Please continue your medications until treatment is completed or stopped by your provider. Discuss any questions related to medications with your provider. Medications to Continue Taking That Have Changed These medications were not printed or sent to your pharmacy - Lisinopril (lisinopril 5 mg oral tablet) 1 tab(s) Oral Daily for 30 Days. new start 01/22/22. Refills: 2. Next Dose: - Lisinopril (lisinopril 5 mg oral tablet) TAKE 1 TABLET BY MOUTH DAILY NEW. START 01/22/22. Refills: 1. Next Dose: Medications to Continue with No Changes These medications were not printed or sent to your pharmacy Durable Medical Equipment (Cane) Dx foot pain. Refills: 0. Next Dose: EPINEPHrine (EpiPen 2-Jerman) 0.3 Milligram Intramuscular once. Next Dose: Omeprazole 40 Milligram Oral Daily. Next Dose: No Longer Take the Following Medications Linezolid (linezolid 600 mg oral tablet) Metronidazole (metroNIDAZOLE 500 mg oral tablet) 1 tab(s) Oral 3 times a day for 5 Days. Refills: 0. Allergy Info:?? fentaNYL; Soy Products; Other Food Allergy; Nuts; Mold; Latex; Horses; Dust; Dogs; Stow; Contrast Dye; Cats; Adhesive Bandage; Biaxin XL; Bactrim; Tylenol; Levaquin; Augmentin; Tums; Cefzil; Fosamax; Cleocin T; Keflex; Benadryl, Topical; shellfish; sulfa drugs; caffeine; predniSONE;aspirin; metoprolol; sulfADIAZINE; penicillin; amoxicillin; erythromycin; clindamycin; tetracycline; doxycycline; ibuprofen; codeine; atenolol Medications Given This Visit Future Orders ?No future orders Vital Signs Height 150 cm Weight 45.9 kg BMI 20.4 kg/m2 Blood Pressure 148 mm Hg/81 mm Hg Temperature 97.6 DegF Pulse Rate 93 bpm Respiratory Rate 02 Sat Mode of Delivery 97 %/Room air You can now view a summary of your hospital visit from the comfort of your home through a free online portal called Tango. Tango is a website that allows you to securely view your medical information including discharge summary, medications and follow-up visits. ??You can alsosend a secure electronic message to your doctor???s office to request appointments, renew medications or just ask a question. You can enroll at [email or web address] or register during your next office [...] primary care provider, you may find a [facility] provider by calling [facility] [employer] Link at [phone]. For information about the plan of care including goals and instructions for your diagnosis, please see the patient education orders section of this document. Patient Education Materials?? The content of this educational material or handout may have been modified, supplemented, or adapted from its original content and format to support your individualized medical care. * Margaret Austin MA: PERFORM, SIGN, VERIFY Event Display: Patient Education/Instruction Authored Date: [id number] [facility] *Heme/Onc Adult Clinical Summary Name NAUN MARTIN Age 77 Years 1945 PCP Rahat GERBER, Gaye Macias PCP Visit Date 06/10/2022 09:09:00 Additional Instructions: Scheduled Appointments?? Future Appointments ?[facility] ?Phone:??--?Fax:??-- ?Appt. Date:??07/08/2022?10:00 AM ?Scheduled Provider:??[facility] [place] ?*[facility]Off ?[address]??[place],??[place],??[address] ?Phone:??--?Fax:??-- ?Appt. Date:??07/14/2022?9:30 AM ?Scheduled Provider:??Savanah Charlton ?*[facility]Off ?[address]??[place],??[place],??[address] ?Phone:??--?Fax:??-- ?Appt. Date:??07/21/2022?10:00 AM ?Scheduled Provider:??Harmony GERBER , Merced Denny Follow-Up Instructions ?? With: Address: When: Aleks Barger [facility] [place] [address] [facility] (1) 06/30/2023 10:15 AM Diagnosis Medications: Please continue your medications until treatment is completed or stopped by your provider. Discuss any questions related to medications with your provider. Medications to Continue Taking That Have Changed These medications were not printed or sent to your pharmacy - Lisinopril (lisinopril 5 mg oral tablet) 1 tab(s) Oral Daily for 30 Days. new start 01/22/22. Refills: 2. Next Dose: - Lisinopril (lisinopril 5 mg oral tablet) TAKE 1 TABLET BY MOUTH DAILY NEW. START 01/22/22. Refills: 1. Next Dose: Medications to Continue with No Changes These medications were not printed or sent to your pharmacy Durable Medical Equipment (Cane) Dx foot pain. Refills: 0. Next Dose: EPINEPHrine (EpiPen 2-Jerman) 0.3 Milligram Intramuscular once. Next Dose: Omeprazole 40 Milligram Oral Daily. Next Dose: No Longer Take the Following Medications Linezolid (linezolid 600 mg oral tablet) Metronidazole (metroNIDAZOLE 500 mg oral tablet) 1 tab(s) Oral 3 times a day for 5 Days. Refills: 0. Allergy Info:?? fentaNYL; Soy Products; Other Food Allergy; Nuts; Mold; Latex; Horses; Dust; Dogs; Stow; Contrast Dye; Cats; Adhesive Bandage; Biaxin XL; Bactrim; Tylenol; Levaquin; Augmentin; Tums; Cefzil; Fosamax; Cleocin T; Keflex; Benadryl, Topical; shellfish; sulfa drugs; caffeine; predniSONE;aspirin; metoprolol; sulfADIAZINE; penicillin; amoxicillin; erythromycin; clindamycin; tetracycline; doxycycline; ibuprofen; codeine; atenolol Medications Given This Visit Future Orders ?No future orders Vital Signs Height 150 cm Weight 46.6 kg BMI 20.71 kg/m2 Blood Pressure 140 mm Hg/61 mm Hg Temperature 97.6 DegF Pulse Rate 84 bpm Respiratory Rate 02 Sat Mode of Delivery 100 %/Room air You can now view a summary of your hospital visit from the comfort of your home through a free online portal called Tango. Tango is a website that allows you to securely view your medical information including discharge summary, medications and follow-up visits. ??You can alsosend a secure electronic message to your doctor???s office to request appointments, renew medications or just ask a question. You can enroll at [email or web address] or register during your next office [...] primary care provider, you may find a [facility] provider by calling [facility] [employer] at [phone]. For information about the plan of care [...] Care Team Personnel Name: Yin Hsu Position: [facility] Onco RN Member Role: Primary Care Nurse Name: Ruma Bravo MD Position: [facility] Physician - Primary Care Member Role: PCP Address: Address: [address] [place] [address] Name: Pretty GERBER, Cherry Gaines Position: [facility] MAGNAFLUX OPERATOR MD Member Role: Lifetime MAGNAFLUX OPERATOR Physician Address: Address: [address] [place] [address]s [facility] Jigsaw Operator [address] Name: Maeve Jones RN Position: [facility] RN Member Role: Primary Care Nurse Care Team Related Persons Name: MEG MARTIN Address: home [address] [place] [address] Name: JAKE RODRIGUES Address: [place] [address]
--- OUTSIDE RECORDS SUMMARY | 2023-05-02 12:17 | XMS_ITS | Continuity of Care Document ---
Author Name Unknown Organization [facility] Address [address] [place] [address]- Care Team Providers Care Supervising Editor Trailer Name Role Phone Rahat GERBER, Gaye Macias Primary Care Physician [place] [facility] Date(s): 10/23/21 - 11/22/21 [facility] [address] [place] [address]- Allergies, Adverse Reactions, Alerts Substance Reaction Severity [...] rash Active Cats Active Contrast Dye Active [place] Active Dogs Active Dust Active Horses Active [...]
--- OUTSIDE RECORDS SUMMARY | 2023-05-02 12:17 | XMS_ITS | Continuity of Care Document ---
Author Name Unknown Organization [facility] Address [address] [place] [address]- Care Team Providers Care Production Operations Inspector Name Role Phone Rahat GERBER, Gaye Macias Primary Care Physician ( [phone] [place] [facility] [place] 04/03/21 - 08/01/21 [facility] [address] [place] [id number] Attending Physician: Laury Espinosa MD Admitting Physician: Laury Espinosa MD Referring Physician: Yolanda Fischer MD Allergies, Adverse Reactions, Alerts Substance Reaction Severity Status atenolol Active codeine Active clindamycin Active penicillin Active vancomycin 1 rash Persistent Mild Active metoprolol Active caffeine Active ibuprofen Active aspirin Active doxycycline 2 Moderate Active tetracycline Active erythromycin Active shellfish Active sulfADIAZINE All sulfa drugs Active Benadryl, Topical 3 Active Keflex Active Fosamax Active Cleocin T Active Cefzil Active Tums Active Levaquin Active Tylenol Active Horses Active Mold Active Nuts Active Soy Products Active fentaNYL Active Latex rash Active Bactrim Active Biaxin XL Active Adhesive Bandage rash Active Cats Active [place] Active Contrast Dye Active Dogs Active Dust Active Pork Active 1rash 2Rash 3Pt States she tolerates [...] days, # 3 each, 2 Refills, Maintenance, 08/24/21 10:09:00 EDT, [id number], Partial fill upon patient request if the [...] stasis(Confirmed) Active 1Dr Melo rheum 2Dr Soco grievance and appeals coordinator multiple food and drug allergies 3Noho [...]
--- OUTSIDE RECORDS SUMMARY | 2023-05-02 12:17 | XMS_ITS | Continuity of Care Document ---
Author Name Unknown Organization [facility] Address [address] [address]- Care Team Providers Care Senior Quality Analyst Name Role Phone Yolanda Fischer MD Primary Care Physician Encounter [facility] Date(s): 12/24/20 - 12/31/20 [facility] [address] [address]- Attending Physician: Savanah Charlton Admitting Physician: Savanah [...] rash Active Cats Active Contrast Dye Active [place] Active Dogs Active Dust Active Horses Active [...] each, 2 Refills, Maintenance, 12/25/20 10:09:00 EDT, [facility] #[id number], Partial fill upon patient request if the prescription is for a schedule II opioid drug., 150, cm, 12/25/20 9:32:00 EDT, H... Start Date: 12/25/20 Status: Ordered NuLYTELY with Flavor Packs oral powder for reconstitution 240 mL, By Mouth, Every 10 minutes, # 4,000 mL, 0 Refills, Maintenance, 12/25/20 10:32:00 EDT, REC Powder, [facility] #[id number], Partial fill upon patient request if the [...] stasis(Confirmed) Active 1Dr Melo rheum 2Dr Soco dealer accounts investigator multiple food and drug allergies 3[facility] 4colonoscopy 06/21/2019 removed 4 polyps. if positive for ca will need colon resection Social History Social History Type Response Smoking Status Never (less than 100 in lifetime) entered on: 05/30/19 Sex
--- OUTSIDE RECORDS SUMMARY | 2023-05-02 12:17 | XMS_ITS | Continuity of Care Document ---
Author Name Unknown Organization [facility] Address [address] [place] [address]- Care Team Providers Care Crushed Stone Grader Name Role Phone Rahat GERBER, Gaye Macias Primary Care Physician Encounter [facility] [place] [facility] Date(s): 06/26/21 - 07/26/21 [facility] [address] [place] [id number] Allergies, Adverse Reactions, Alerts Substance [...] rash Active Cats Active Contrast Dye Active [place] Active Dogs Active Dust Active Horses Active [...] each, 2 Refills, Maintenance, 12/25/20 10:09:00 EDT, [facility] #[id number], Partial fill upon patient request if the [...] stasis(Confirmed) Active 1Dr Melo rheum 2Dr Soco pharmacist apprentice multiple food and drug allergies 3[facility] 4colonoscopy 06/21/2019 removed 4 polyps. if positive for ca will need colon resection 5Late April 2020 6Pt. had 2nd Pfizer vaccine on 09/19 and pain in her L hand on 10/07. Social History Social History Type Response Smoking Status Never (less than 100 in lifetime) entered on: 05/30/19 Sex
--- OUTSIDE RECORDS SUMMARY | 2023-05-02 12:17 | XMS_ITS | Continuity of Care Document ---
Author Name Unknown Organization [facility] Address [address] [place] [address]- Care Team Providers Care Bank Runner Name Role Phone Yolanda Fischer MD Primary Care Physician En[place] [facility] [place] Date(s): 09/12/19 - 09/19/19 [facility] [address] [place] [address] [facility] Attending Physician: Krysta GERBER, Jessica Referring Physician: Yolanda Fischer MD Allergies, Adverse [...] Active Adhesive Bandage rash Active Cats Active [place] Active Dogs Active Dust Active Horses [...] Rectal bleeding(Confirmed) Active 1Dr Melo rheum 2Dr Scoo retort or condenser press operator multiple food and drug allergies 3[facility] 4colonoscopy 06/21/2019 removed 4 polyps. if positive for ca will need colon resection Social History Social History Type Response Smoking Status Never (less than 100 in lifetime) entered on: 05/30/19 Sex Female
--- OUTSIDE RECORDS SUMMARY | 2023-05-02 12:17 | XMS_ITS | Continuity of Care Document ---
Author Name Unknown Organization [facility] Address [address] [place] [address]- Care Team Providers Care Baby Attendant Name Role Phone Yolanda Fischer MD Primary Care Physician [place] [facility] [place](s[place] 12/13/20 - 01/12/21 [facility] [address] [place] [address]- Attending Physician: Will Wilson Admitting Physician: AdmtrWill Referring Physician: Admtr, Ar8 Allergies, Adverse Reactions, [...] rash Active Cats Active Contrast Dye Active [place] Active Dogs Active Dust Active Horses Active [...] each, 2 Refills, Maintenance, 12/25/20 10:09:00 EDT, [facility] #[id number], Partial fill upon patient request if the prescription is for a schedule II opioid drug., 150, cm, 12/25/20 9:32:00 EDT, H... Start Date: 12/25/20 Status: Ordered NuLYTELY with Flavor Packs oral powder for reconstitution 240 mL, By Mouth, Every 10 minutes, # 4,000 mL, 0 Refills, Maintenance, 12/25/20 10:32:00 EDT, REC Powder, [facility] #[id number], Partial fill upon patient request if the [...] stasis(Confirmed) Active 1Dr Melo rheum 2Dr Soco quality control lead multiple food and drug allergies 3[facility] 4colonoscopy 06/21/2019 removed 4 polyps. if positive for ca will need colon resection Social History Social History Type Response Smoking Status Never (less than 100 in lifetime) entered on: 05/30/19 Sex
--- OUTSIDE RECORDS SUMMARY | 2023-05-02 12:17 | XMS_ITS | Continuity of Care Document ---
Author Name Unknown Organization [facility] Address [address] [place] [address]- Care Team Providers Care Media Relations Associate Name Role Phone Ruma Bravo MD Primary Care Physician Encounter [facility] [place] Date(s): 01/01/23 - 01/31/23 [facility] [address] [place] [address]- Allergies, Adverse Reactions, Alerts Substance Reaction Severity [...] rash Active Cats Active Contrast Dye Active [place] Active Dogs Active Dust Active Horses Active [...] 1 Refills, Maintenance, 01/19/23 10:23:00 EDT, Tablet, [facility] #[id number], Partial fill upon patient request if the [...] 0 Refills, Maintenance, 12/17/22 11:48:00 EDT, Gel, [facility] #[id number], Partial fill upon patient request if the prescription is for a schedule II opioid drug., 152, cm,... Start Date: 12/17/22 Status: Ordered diclofenac 1% topical gel 1 application, Topically, 4 times a day, # 100 Gm, 0 Refills, Maintenance, 12/25/22 11:12:00 EDT, [facility] #[id number], Partial fill upon patient request if the prescription is for a schedule II opioid drug., 152, cm, 12/25/22 10:26:00 EDT... Start Date: 12/25/22 Status: Ordered diphenhydrAMINE 50 mg oral tablet 1 tablet = 50 mg, By Mouth, Once, [address] scan, # 1 tablet, 2 Refills, Soft Stop, 10/15/22 14:04:00 EDT, [facility] #[id number], Partial fill upon patient request if the [...] 01/19/23 Stop Date: 03/20/23 Status: Ordered EpiPen 2-Ejrman = 0.3 mg, Intramuscular, Once, 0 Refills, Maintenance, 05/29/22 13:39:00 EST, Partial fill upon patient request if the prescription is for a schedule II opioid drug. Start Date: 05/29/22 Status: Ordered famotidine 20 mg oral tablet 20 mg, 1, tablet, By Mouth, Daily, # 5 tablet, Refills 0, Tot. Refills 0, Maintenance, 11/03/22 16:12:00 EDT, Route to Pharmacy Electronically, [facility] #[id number], Partial fill upon patient request if the [...] 2 Refills, Maintenance, 09/08/22 10:06:00 EDT, Tablet, [facility] #[id number],... Start Date: 09/08/22 Status: Ordered lisinopril 5 mg oral tablet 5 mg, 1, tablet, By Mouth, Daily, # 90 tablet, Refills 1, Tot. Refills 1, Maintenance, 09/02/22 9:47:00 EDT, Route to Pharmacy Electronically, [facility] #[id number], 150, cm, 08/27/22 14:11:00 EDT, Height, 45.9, [...] RN Member Role: Primary Care Nurse Name: Lawrence GERBER, Ruma Bauer Position: [facility] Physician - Primary Care Member Role: PCP Address: Address: [address] [place] [address] - [address] Name: Shikha Rivera RN Position: [facility] RN Member Role: Primary Care Nurse Name: Pretty GERBER, Cherry Gaines Position: [facility] VTC TECHNICIAN MD Member Role: Lifetime VTC TECHNICIAN Physician Address: Address: [address] [place] [address] [facility] [employer] [place], [place] [address] Name: Robert GALLAGHER, Maeve Bauer Position: [facility] RN Member Role: Primary Care Nurse Care Team Related Persons Name: MEG MARTIN Address: home [address] [place] [address] Name: JAKE RODRIGUES Address: [place] [address]
[2023-05-02 12:18] VITALS: PULSE 100
--- OUTSIDE RECORDS SUMMARY | 2023-05-02 12:18 | XMS_ITS | Continuity of Care Document ---
Author Name Unknown Organization [facility] Address [address] [address]- Care Team Providers Care Environmental Compliance Engineer Name Role Phone Yolanda Fischer MD Primary Care Physician [place] [facility] [place] Date(s): 02/28/20 - 03/06/20 [facility] [address] [address]- [place] Attending Physician: Savanah Charlton Admitting Physician: Savanah [...] rash Active Cats Active Contrast Dye Active [place] Active Dogs Active Dust Active Horses Active [...] stasis(Confirmed) Active 1Dr Melo rheum 2Dr Soco pearl glue drier multiple food and drug allergies 3[facility] 4colonoscopy 06/21/2019 removed 4 polyps. if positive for ca will need colon resection Vital Signs Most recent to oldest [Reference Range]: 1 Height 150.0 cm (02/28/20 9:31 AM) Weight 51.8 kg (02/28/20 9:31 AM) Oxygen Saturation [94-100 %] 98 % (02/28/20 9:31 AM) Pulse Rate [55-90 bpm] 91 bpm *H* (02/28/20 9:31 AM) Body Mass Index [18.5-24.99] 23.02 (02/28/20 9:31 AM) Blood Pressure [90-138/55-84 mm Hg] 124/ 68mm Hg (02/28/20 9:31 AM) Mode of Delivery (Oxygen) Room air (02/28/20 9:31 AM) Weight Obtained Via Standing scale (02/28/20 9:31 AM) Social History Social History Type Response Smoking Status Never (less than 100 in lifetime) entered on: 05/30/19 Sex Female
--- OUTSIDE RECORDS SUMMARY | 2023-05-02 12:18 | XMS_ITS | Continuity of Care Document ---
Author Name Unknown Organization [facility] Address [address] [place] [address]- Care Team Providers Care Director Of Music Therapy Name Role Phone Yolanda Fischer MD Primary Care Physician Encounter [facility] [place] Date(s): 05/28/20 - 06/27/20 [facility] [address] [place] [address]- Allergies, Adverse Reactions, Alerts Substance Reaction Severity [...] rash Active Cats Active Contrast Dye Active [place] Active Dogs Active Dust Active Horses Active [...] capsule, 1 Refills, Maintenance, 04/17/20 10:01:00 EST, [facility][id number], [place]... Start Date: 04/17/20 Status: Ordered Multivitamins [...] stasis(Confirmed) Active 1Dr Melo rheum 2Dr Soco cost coordinator multiple food and drug allergies 3[facility] 4colonoscopy 06/21/2019 removed 4 polyps. if positive for ca will need colon resection Social History Social History Type Response Smoking Status Never (less than 100 in lifetime) entered on: 05/30/19 Sex Female
--- OUTSIDE RECORDS SUMMARY | 2023-05-02 12:18 | XMS_ITS | Continuity of Care Document ---
Author Name Unknown Organization [facility] Address [address] [place] [address]- Care Team Providers Care Information Services Tech Name Role Phone Yolanda Fischer MD Primary Care Physician [place] [facility] [place] 10/18/20 - 10/25/20 [facility] [address] [place] [address]- Encounter Diagnosis Urinary frequency(Discharge Diagnosis) - 10/18/20 Attending Physician: Yolanda Fischer MD Allergies, Adverse [...] rash Active Cats Active Contrast Dye Active [place] Active Dogs Active Dust Active Horses Active [...] capsule, 1 Refills, Maintenance, 04/17/20 10:01:00 [id number], [place]... Start Date: 04/17/20 Status: Ordered Multivitamins [...] stasis(Confirmed) Active 1Dr Melo rheum 2Dr Soco sloop captain multiple food and drug allergies 3[facility] 4colonoscopy 06/21/2019 removed 4 polyps. if positive for ca will need colon resection Diagnosis Diagnosis Type Effective Dates Health Status Cl inical Service Informant Urinary frequency Discharge Diagnosis 10/18/20 Vital Signs Most recent to oldest [Reference Range]: 1 Height 150 cm (10/18/20 9:41 AM) Blood Pressure [90-138/55-84 mm Hg] 126/ 72mm Hg (10/18/20 9:41 AM) Blood pressure sites Arm, right (10/18/20 9:41 AM) Social History Social History Type Response Smoking Status Never (less than 100 in lifetime) entered on: 05/30/19 Sex Female
--- OUTSIDE RECORDS SUMMARY | 2023-05-02 12:18 | XMS_ITS | Continuity of Care Document ---
Author Name Unknown Organization [facility] Address [address] [place] [address]- Care Team Providers Care Fire Regulator Name Role Phone Yolanda Fischer MD Primary Care Physician Encounter [facility] Date(s): 07/26/19 - 10/15/19 [facility] [address] [place] [address]- [facility] Attending Physician: Miguel Ángel GERBER, Mazin Referring [...] Active Adhesive Bandage rash Active Cats Active [place] Active Dogs Active Dust Active Horses Active [...] stasis(Confirmed) Active 1Dr Melo rheum 2Dr Soco braid cutter multiple food and drug allergies 3[facility] 4colonoscopy 06/21/2019 removed 4 polyps. if positive for ca will need colon resection Social History Social History Type Response Smoking Status Never (less than 100 in lifetime) entered on: 05/30/19 Sex Female
--- OUTSIDE RECORDS SUMMARY | 2023-05-02 12:18 | XMS_ITS | Continuity of Care Document ---
Author Name Unknown Organization [facility] Address [address] [place] [address]- Care Team Providers Care Lead Generation Marketing Manager Name Role Phone Rahat GERBER, Gaye Macias Primary Care Physician Encounter [facility] [place] Date(s): 12/20/21 - 12/27/21 [facility] [address] [place] [address]- Encounter Diagnosis Cellulitis of right ankle(Discharge Diagnosis) - 12/20/21 Blood pressure elevated without history of HTN(Discharge Diagnosis) - 12/20/21 Attending Physician: Zuleima HARDEN, Olivia Allergies, Adverse Reactions, Alerts Substance Reaction Severity Status atenolol Active codeine Active doxycycline 1 Moderate Active clindamycin Active penicillin Active vancomycin 2 rash Persistent Mild Active metoprolol Active Benadryl, Topical 3 Active ibuprofen Active aspirin Active tetracycline Active erythromycin Active shellfish Active sulfADIAZINE All sulfa drugs Active caffeine Active Keflex Active Fosamax Active Cleocin T Active Cefzil Active Tums Active Levaquin Active Tylenol Active Bactrim Active Contrast Dye Active Horses Active Mold Active Nuts Active Soy Products Active fentaNYL Active Latex rash Active Biaxin XL Active Adhesive Bandage rash Active Cats Active [place] Active Dogs Active Dust Active Pork Active [...] Effective Dates Health Status Clinical Service Informant Cellulitis of right ankle Discharge Diagnosis 12/20/21 Blood pressure elevated without history of HTN Discharge Diagnosis 12/20/21 Vital Signs Most recent to oldest [Reference Range]: 1 2 Height 150 cm (12/20/21 3:08 PM) 150 cm (12/20/21 2:55 PM) Weight 50.5 kg (12/20/21 2:55 PM) Oxygen Saturation [94-100 %] 99 % (12/20/21 2:55 PM) Pulse Rate [55-90 bpm] 100 bpm *H* (12/20/21 2:55 PM) Body Mass Index [18.5-24.99] 22.44 (12/20/21 2:55 PM) Blood Pressure [90-138/55-84 mm Hg] 159/ 90mm Hg *H* (12/20/21 3:08 PM) 170/108mm Hg *H* (12/20/21 2:55 PM) Respiratory Rate [16-30 br/min] 18 br/mi n (12/20/21 2:55 PM) Blood pressure sites Arm, left (12/20/21 3:08 PM) Arm, left (12/20/21 2:55 PM) Weight Obtained Via Standing scale (12/20/21 2:55 PM) Social History Social History Type Response Smoking Status Never (less than 100 in lifetime) entered on: 05/30/19 Sex Care Team Personnel Name: Rahat GERBER, Gaye Macias Address: [address] [place] [id number]
--- OUTSIDE RECORDS SUMMARY | 2023-05-02 12:18 | XMS_ITS | Continuity of Care Document ---
Author Name Unknown Organization [facility] Address [address] [place] [address]- Care Team Providers Care Slotter Operator Helper Name Role Phone Rahat GERBER, Gaye Macias Primary Care Physician [place] [facility] [place](s[place] 05/21/22 - 06/20/22 [facility] [address] [place] [address]- Allergies, Adverse Reactions, Alerts Substance Reaction Severity Status atenolol Active codeine Active penicillin Active shellfish Active ibuprofen Active aspirin Active doxycycline 1 Moderate Active tetracycline Active clindamycin Active erythromycin Active sulfADIAZINE All sulfa drugs Active metoprolol Active caffeine Active Benadryl, Topical 2 Active Keflex Active Fosamax Active Cleocin T Active Cefzil Active Tums Active Levaquin Active Tylenol Active Contrast Dye Active Horses Active Mold Active Nuts Active Other Food Allergy chicken broccoli other veggetables tomatoes onions cucumbers lettuce peas carrots wheat rash hives itchy Active Soy Products Active fentaNYL Active Bactrim Active Biaxin XL Active Adhesive Bandage rash Active Cats Active [place] Active Dogs Active Dust Active Latex rash Active 1Rash 2Pt States she tolerates Benadryl [...] 01/22/22 15:19:00 EDT, Route to Pharmacy Electronically, [facility] #[id number], Partialfill upon patient request if the prescription is fo... Start Date: 01/22/22 Stop Date: 04/22/22 Status: Ordered metroNIDAZOLE 500 mg oral tablet 1 tablet = 500 mg, By Mouth, 3 times a day, # 15 tablet, 0 Refills, Maintenance, 02/27/22 16:27:00 EDT, Tablet, [facility] #[id number], Partial fill upon patient request if the [...] Care Physician Member Role: PCP Address: Address: [address] [place] [address] [place] [address]- Name: Consuelo Louis RN Position: [facility] RN Member Role: Primary Care Nurse Name: Cherry Olsen MD Position: [facility] SERVICES ADVISOR MD Member Role: [facility] SERVICES ADVISOR Physician Address: Address: [address] [place] [address] [facility] [employer] [place] [address]- Name: Maeve Jones RN Position: [facility] RN Member Role: Primary Care Nurse Care Team Related Persons Name: MEG MARTIN Address: home [address] [place] [id number] Name: JAKE RODRIGUES Address: [place] [address]
--- OUTSIDE RECORDS SUMMARY | 2023-05-02 12:18 | XMS_ITS | Continuity of Care Document ---
Author Name Unknown Organization [facility] Address [address] [place] [address]- Care Team Providers Care Paper Sorter Name Role Phone Yolanda Fischer MD Primary Care Physician [place] [facility] [place] Date(s[place] 02/27/21 - 03/06/21 [facility] [address] [place] [address]- Encounter Diagnosis Vaccine reaction(Discharge Diagnosis) - 02/27/21 Lab test positive for detection of COVID-19 virus(Discharge Diagnosis) - 02/27/21 Arthritis of carpometacarpal (CMC) joint of left thumb(Discharge Diagnosis) - 02/27/21 Contusion of leg, right(Discharge Diagnosis) - 02/27/21 Attending Physician: Yolanda Fischer MD Allergies, Adverse Reactions, Alerts Substance Reaction Severity Status atenolol Active codeine Active doxycycline 1 Moderate Active clindamycin Active penicillin Active metoprolol Active shellfish Active Keflex Active Cleocin T Active ibuprofen Active aspirin Active tetracycline Active erythromycin Active sulfADIAZINE All sulfa drugs Active vancomycin 2 rash Persistent Mild Active caffeine Active Benadryl, Topical 3 Active Fosamax Active Cefzil Active Tums Active Levaquin Active Tylenol Active Horses Active Mold Active Nuts Active Soy Products Active fentaNYL Active Latex rash Active Bactrim Active Biaxin XL Active Adhesive Bandage rash Active Cats Active [place] Active Contrast Dye Active Dogs Active Dust [...] each, 2 Refills, Maintenance, 12/25/20 10:09:00 EDT, [facility] #[id number], Partial fill upon patient request if the [...] kit, 0 Refills, Maintenance, 01/14/21 12:14:00 EDT, [facility][id number], Partial fill upon patient request if the [...] stasis(Confirmed) Active 1Dr Melo rheum 2Dr Soco water regulator and valve repairer multiple food and drug allergies 3[facility] 4colonoscopy 06/21/2019 removed 4 polyps. if positive for ca will need colon resection 5Late April 2020 6Pt. had 2nd Pfizer vaccine on 09/19 and pain in her L hand on 10/07. Diagnosis Diagnosis Type Effective Dates Health Status Clinical Service Informant Vaccine reaction Discharge Diagnosis 02/27/21 Lab test positive for detection of COVID-19 virus Discharge Diagnosis 02/27/21 Arthritis of carpometacarpal (CMC) joint of left thumb Discharge Diagnosis 02/27/21 Contusion of leg, right Discharge Diagnosis 02/27/21 Vital Signs Most recent to oldest [Reference Range]: 1 2 Height 150 cm (02/27/21 8:34 AM) 150 cm (02/27/21 8:27 AM) Weight 53.27 kg (02/27/21 8:27 AM) Oxygen Saturation [94-100 %] 97 % (02/27/21 8:27 AM) Pulse Rate [55-90 bpm] 96 bpm *H* (02/27/21 8:27 AM) Body Mass Index [18.5-24.99] 23.68 (02/27/21 8:27 AM) Blood Pressure [90-138/55-84 mm Hg] 136/ 79mm Hg (02/27/21 8:34 AM) 143/79mm Hg *H* (02/27/21 8:27 AM) Respiratory Rate [16-30 br/min] 18 br/mi n (02/27/21 8:27 AM) Blood pressure sites Arm, right (02/27/21 8:34 AM) Arm, right (02/27/21 8:27 AM) Weight Obtained Via Standing scale (02/27/21 8:27 AM) Social History Social History Type Response Smoking Status Never (less than 100 in lifetime) entered on: 05/30/19 Sex
--- OUTSIDE RECORDS SUMMARY | 2023-05-02 12:18 | XMS_ITS | Continuity of Care Document ---
Author Name Unknown Organization [facility] Address [address] [place] [address]- Care Team Providers Care Class A Lineman Name Role Phone Yolanda Fischer MD Primary Care Physician Encounter [facility] [place] Date(s): 11/10/19 - 12/10/19 [facility] [address] [place] [address]- [place] Attending Physician: Admtr, Ar8 Admitting Physician: Admtr, [...] rash Active Cats Active Contrast Dye Active [place] Active Dogs Active Dust Active Horses Active [...] Active 1Dr Melo rheum 2Dr Soco manager of sales multiple food and drug allergies 3[facility] 4colonoscopy 06/21/2019 removed 4 polyps. if positive for ca will need colon resection Social History Social History Type Response Smoking Status Never (less than 100 in lifetime) entered on: 05/30/19 Sex Female
--- OUTSIDE RECORDS SUMMARY | 2023-05-02 12:18 | XMS_ITS | Continuity of Care Document ---
Author Name Unknown Organization [facility] Address [address] [place] [address]- Care Team Providers Care Perfect Binder Setter Name Role Phone Lawrence GERBER, Ruma Bauer Primary Care Physician [place] [facility] [place](s): 01/26/23 - 02/25/23 [facility] [address] [place] [address]- Attending Physician: Will Wilson Admitting Physician: AdmtrWill Referring Physician: Admtr, ArFracisco [...] tablet, 1 Refills, Maintenance, 01/19/23 10:23:00 EDT, [facility][id number], Partial fill upon patient request if the [...] Gm, 0 Refills, Maintenance, 12/17/22 11:48:00 EDT, [facility] #[id number], Partial fill upon patient request if the prescription is for a schedule II opioid drug., 152, cm,... Start Date: 12/17/22 Status: Ordered diclofenac 1% topical gel 1 application, Topically, 4 times a day, # 100 Gm, 0 Refills, Maintenance, 12/25/22 11:12:00 EDT, [facility] #[id number], Partial fill upon patient request if the prescription is for a schedule II opioid drug., 152, cm, 12/25/22 10:26:00 EDT... Start Date: 12/25/22 Status: Ordered diphenhydrAMINE 50 mg oral tablet 1 tablet = 50 mg, By Mouth, Once, [address] scan, # 1 tablet, 2 Refills, Soft Stop, 10/15/22 14:04:00 EDT, [facility] #[id number], Partial fill upon patient request if the [...] 11/03/22 16:12:00 EDT, Route to Pharmacy Electronically, [email or web address] #[id number], Partial fill upon patient request if the [...] 2 Refills, Maintenance, 09/08/22 10:06:00 EDT, Tablet, [email or web address] #[id number],... Start Date: 09/08/22 Status: Ordered lisinopril 5 mg oral tablet 5 mg, 1, tablet, By Mouth, Daily, # 90 tablet, Refills 1, Tot. Refills 1, Maintenance, 09/02/22 9:47:00 EDT, Route to Pharmacy Electronically, [email or web address] #[id number], 150, cm, 08/27/22 14:11:00 EDT, Height, 45.9, [...] Bravo MD Position: [facility] Physician - Primary Care Member Role: PCP Address: Address: [address] [place] [address] Name: Shikha Rivera RN Position: [facility] RN Member Role: Primary Care Nurse Name: Consuelo Louis RN Position: [facility] RN Member Role: Primary Care Nurse Name: Cherry Olsen MD Position: [facility] HOME HEALTH LVN MD Member Role: [facility] HOME HEALTH LVN Physician Address: Address: [address] [place] [address] Women's [facility] Executive Secretary [place] [address]- Name: Maeve Jones RN Position: [facility] RN Member Role: Primary Care Nurse Care Team Related Persons Name: MEG MARTIN Address: home [address] [place] [address] Name: JAKE RODRIGUES Address: [place] [address]
--- OUTSIDE RECORDS SUMMARY | 2023-05-02 12:18 | XMS_ITS | Continuity of Care Document ---
Author Name Unknown Organization [facility] Address [address] [place] [address]- Care Team Providers Care Detective Chief Name Role Phone Yolanda Fischer MD Primary Care Physician [facility] [facility] [place] Date(s): 11/07/20 - 12/07/20 [facility] [address] [place] [address]- Allergies, Adverse Reactions, Alerts Substance Reaction Severity [...] rash Active Cats Active Contrast Dye Active [place] Active Dogs Active Dust Active Horses Active [...] stasis(Confirmed) Active 1Dr Melo rheum 2Dr Soco booth cleaner multiple food and drug allergies 3[facility] 4colonoscopy 06/21/2019 removed 4 polyps. if positive for ca will need colon resection Social History Social History Type Response Smoking Status Never (less than 100 in lifetime) entered on: 05/30/19 Sex
--- OUTSIDE RECORDS SUMMARY | 2023-05-02 12:18 | XMS_ITS | Continuity of Care Document ---
Author Name Unknown Organization [facility] Address [address] [place] [address]- Care Team Providers Care Net Making Supervisor Name Role Phone Yolanda Fischer MD Primary Care Physician Encounter 10/05/20 - 12/13/20 [facility] [address] [place] [address]- Attending Physician: Ginny Galarza MD Admitting Physician: Ginny Galarza MD Referring Physician: Ginny Galarza MD Allergies, Adverse Reactions, Alerts Substance Reaction [...] Active Levaquin Active Tylenol Active Bactrim Active Horses Active Mold Active Nuts Active Soy Products Active fentaNYL Active Latex rash Active Biaxin XL Active Adhesive Bandage rash Active Cats Active [place] Active Contrast Dye Active Dogs Active Dust Active [place]ork Active 1Rash 2Pt States she tolerates Benadryl [...] stasis(Confirmed) Active 1Dr Melo rheum 2Dr Soco assistant baseball coach multiple food and drug allergies 3[facility] 4colonoscopy 06/21/2019 removed 4 polyps. if positive for ca will need colon resection Social History Social History Type Response Smoking Status Never (less than 100 in lifetime) entered on: 05/30/19 Sex
--- OUTSIDE RECORDS SUMMARY | 2023-05-02 12:18 | XMS_ITS | Continuity of Care Document ---
Author Name Unknown Organization [facility] Address [address] [address]- Care Team Providers Care Contact Center Assistant Name Role Phone Rahat GERBER, Gaye Macias Primary Care Phys[id number] Date(s): 09/24/21 - 10/01/21 [facility] [address] [address]- Attending Physician: Clara Crawford MD Admitting Physician: Yvette GERBER, Clara Referring Physician: Gaye Giang MD Allergies, Adverse [...] Active Adhesive Bandage rash Active Cats Active [place] Active Contrast Dye Active Dogs Active Dust [...] oldest [Reference Range]: 1 Height 150 cm (09/24/21 9:03 AM) Weight 52 kg (09/24/21 9:03 AM) Oxygen Saturation [94-100 %] 100 % (09/24/21 9:03 AM) Pulse Rate [55-90 bpm] 92 bpm *H* (09/24/21 9:03 AM) Body Mass Index [18.5-24.99] 23.11 (09/24/21 9:03 AM) Blood Pressure [90-138/55-84 mm Hg] 143/ 66mm Hg *H* (09/24/21 9:03 AM) Blood pressure sites Arm, right (09/24/21 9:03 AM) Weight Obtained Via Standing scale (09/24/21 9:03 AM) Social History Social History Type Response Smoking Status Never (less than 100 in lifetime) entered on: 05/30/19 Sex
--- OUTSIDE RECORDS SUMMARY | 2023-05-02 12:18 | XMS_ITS | Continuity of Care Document ---
Author Name Unknown Organization [facility] Address [address] [place] [address]- Care Team Providers Care Second Cook And Baker Name Role Phone Amado GERBER, Yolanda Lance Primary Care Physician Encounter 10/03/20 - 12/23/20 [facility] [address] [place] [address]- Attending Physician: Yolanda Fischer MD Admitting Physician: [...] rash Active Cats Active Contrast Dye Active [place] Active Dogs Active Dust Active Horses Active [...] stasis(Confirmed) Active 1Dr Melo rheum 2Dr Soco senior art director multiple food and drug allergies 3[facility] 4colonoscopy 06/21/2019 removed 4 polyps. if positive for ca will need colon resection Social History Social History Type Response Smoking Status Never (less than 100 in lifetime) entered on: 05/30/19 Sex
--- OUTSIDE RECORDS SUMMARY | 2023-05-02 12:18 | XMS_ITS | Continuity of Care Document ---
Author Name Unknown Organization [facility] ter Address [address] [place] [address]- Care Team Providers Care Master Lay Out Specialist Name Role Phone Yolanda Fischer MD Primary Care Physician [place] [facility] [place] - 10/12/[address] [address] Discharge Disposition: A-D/C Home Attending Physician: Rocío Dee MD Admitting Physician: Yi Willett MD Referring Physician: Not on Staff, Referring [...] rash Active Cats Active Contrast Dye Active [place] Active Dogs Active Dust Active Horses Active [...] capsule, 1 Refills, Maintenance, 04/17/20 10:01:00 EST, [id number], [place]... Start Date: 04/17/20 Status: Ordered linezolid 600 mg oral tablet 1 tablet = 600 mg, By Mouth, 2 times a day, for 5 days, # 10 tablet, 0 Refills, Acute 10/17/20 12:23:00 EDT, 10/12/20 12:23:00 EDT, Tablet, [facility], Partial fill upon patient [...] stasis(Confirmed) Active 1Dr Melo rheum 2Dr Soco crimper assembler multiple food and drug allergies 3[facility] 4colonoscopy 06/21/2019 removed 4 polyps. if positive for ca will need colon resection Results Orders for Microbiology Reports Name Date Blood Culture 10/10/20 Blood Culture #2 10/10/20 Microbiology Reports TEST:Blood Culture, Second Order STATUS:Unauthenticated BODY SITE: SOURCE:Blood COLLECTED DATE/TIME:10/10/20 2:40 PM Blood Culture, Second Order SPECIMEN DESCRIPTION : BLOOD R WRIST SPECIAL REQUESTS : NONE CULTURE : NO GROWTH AFTER 48 HOURS REPORT STATUS : PRELIMINARY REPORT TEST:Blood Culture STATUS:Unauthenticated BODY SITE: SOURCE:Blood COLLECTED DATE/TIME:10/10/20 2:30 PM Blood Culture SPECIMEN DESCRIPTION : BLOOD RAC SPECIAL REQUESTS : NONE CULTURE : NO GROWTH AFTER 48 HOURS REPORT STATUS : PRELIMINARY REPORT Radiology Reports * Exam Date Time Procedure Performing Provider Status 10/10/20 4:40 PM Hand Min 3 Views Left Kellen Black; Auth (Verified) Notes: (Hand Min 3 Views Left) Reason For Exam: Pain RESULT: Hand Min 3 Views Left Examination: Left hand performed on 10/10/2020. History: Hx of Present Illness: pt reports being sent for ? cellulitis to L hand. pt sts Thursday started with sensitivity to L thumb and area progressed into swelling redness increased pain. went to Thursday, started on doxycycline. no improvement.; Reason: Pain; Clinical Question(s): Fracture Findings: Frontal, oblique, and lateral views of the left hand are submitted. Evaluation of the thumb is limited secondary to an overlying fiberglass splint. No definite fractures or dislocations are seen. 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 The soft tissues are grossly unremarkable. IMPRESSION: There is no acute osseous abnormality. WSN: [id number] Ordering Physician: Dimitrios Trevino Dictated By: Jalyn Ramirez MD Dictated Date/Time: 10/10/20 4:43 pm Reviewed By: Jalyn Ramirez MD Signed By: Jalyn Ramirez MD Signed Date/Time: 10/10/20 4:43 pm Transcribed By: KELVIN Transcribed Date/Time: 10/10/20 4:41 pm Vital Signs Most recent to oldest [Reference Range]: 1 2 3 Height 150 cm (10/12/20 11:03 AM) 150 cm (10/12/20 7:06 AM) 150 cm (10/12/20 4:07 AM) Oxygen Saturation [94-100 %] 99 % (10/12/20 11:03 AM) 99 % (10/12/20 7:06 AM) 99 % (10/12/20 4:07 AM) Pulse Rate [55-90 bpm] 105 bpm *H* (10/12/20 11:03 AM) 88 bpm (10/12/20 7:06 AM) 93 bpm *H* (10/12/20 4:07 AM) Blood Pressure [90-138/55-84 mm Hg] 135/82mm Hg (10/12/20 11:03 AM) 134/85mm Hg (10/12/20 7:06 AM) 148/88mm Hg *H* (10/12/20 4:07 AM) Respiratory Rate [16-30 br/min] 20 br/min (10/12/20 11:03 AM) 20 br/min (10/12/20 7:06 AM) 18 br/min (10/12/20 6:47 AM) Temperature [96.8-100.4 DegF] 98.1 DegF (10/12/20 11:03 AM) 98.1 DegF (10/12/20 7:06 AM) 98.4 DegF (10/12/20 4:07 AM) Mode of Delivery (Oxygen) Room air (10/12/20 11:03 AM) Room air (10/12/20 7:06 AM) Room air (10/12/20 4:07 AM) Blood pressure sites Arm, left (10/12/20 11:03 AM) Arm, left (10/12/20 7:06 AM) Arm, left (10/12/20 4:07 AM) Temperature Route Oral (10/12/20 11:03 AM) Oral (10/12/20 7:06 AM) Oral (10/12/20 4:07 AM) Dry Weight 52 kg (10/10/20 2:59 PM) 52 kg (10/10/20 1:35 PM) Social History Social History Type Response Smoking Status Never (less than 100 in lifetime) entered on: 05/30/19 Sex Female
--- OUTSIDE RECORDS SUMMARY | 2023-05-02 12:18 | XMS_ITS | Continuity of Care Document ---
Author Name Unknown Organization [facility] Address [address] [address]- Care Team Providers Care Arc Cutter Name Role Phone Yolanda Fischer MD Primary Care Physician [place] [facility] [place]/20 [facility] [address] [address]- Attending Physician: Savanah Charlton Admitting Physician: Savanah [...] Tylenol Active Contrast Dye Active Horses Active Latex rash Active Mold Active Nuts Active Soy Products Active fentaNYL Active Pork Active Bactrim Active Biaxin XL Active Adhesive Bandage rash Active Cats Active [place] Active Dogs Active Dust Active Immunizations Given [...] 3 capsule, 1 Refills, Maintenance, 04/17/20 10:01:00 [id number], [place]... Start Date: 04/17/20 Status: Ordered Multivitamins [...] Active 1Dr Melo rheum 2Dr Soco vp analytics multiple food and drug allergies 3[facility] 4colonoscopy 06/21/2019 removed 4 polyps. if positive for ca will need colon resection Social History Social History Type Response Smoking Status Never (less than 100 in lifetime) entered on: 05/30/19 Sex Female
--- OUTSIDE RECORDS SUMMARY | 2023-05-02 12:18 | XMS_ITS | Continuity of Care Document ---
Author Name Unknown Organization [facility] Address [address] [place] [address]- Care Team Providers Care Access Developer Name Role Phone Patti HARDEN, Shandra Lance Primary Care Physician Encounter [facility] [place] Date(s): 05/15/21 - 06/14/21 [facility] [address] [place] [address]- Allergies, Adverse Reactions, Alerts Substance Reaction Severity [...] Active Adhesive Bandage rash Active Cats Active [place]ne[place] Active Dogs Active Dust Active Horses Active Latex rash Active Mold Active Nuts Active Pork Active Soy Products Active fentaNYL Active Contrast Dye Active clindamycin Active Benadryl, Topical 3 Active 1Rash 2rash [...] each, 2 Refills, Maintenance, 12/25/20 10:09:00 EDT, [id number], Partial fill upon patient request if the [...] stasis(Confirmed) Active 1Dr Melo rheum 2Dr Soco band ripsaw operator multiple food and drug allergies 3[facility] [...]
--- OUTSIDE RECORDS SUMMARY | 2023-05-02 12:18 | XMS_ITS | Continuity of Care Document ---
Author Name Unknown Organization [facility] Address [address] [place] [address]- Care Team Providers Care Controller Coal Or Ore Name Role Phone Yolanda Fischer MD Primary Care Physician [place] [facility] [place] 10/16/20 - 12/01/20 [facility] [address] [place] [address]- Attending Physician: Yolanda Fischer MD Allergies, Adverse Reactions, Alerts Substance Reaction Severity Status atenolol Active codeine Active doxycycline 1 Moderate Active penicillin Active vancomycin 2 rash Persistent Mild Active ibuprofen Active aspirin Active tetracycline Active [...] Active Adhesive Bandage rash Active Cats Active [place] Active Contrast Dye Active Dogs Active Dust [...] stasis(Confirmed) Active 1Dr Melo rheum 2Dr Soco director of slot operations multiple food and drug allergies 3[facility] 4colonoscopy 06/21/2019 removed 4 polyps. if positive for ca will need colon resection Social History Social History Type Response Smoking Status Never (less than 100 in lifetime) entered on: 05/30/19 Sex
--- OUTSIDE RECORDS SUMMARY | 2023-05-02 12:18 | XMS_ITS | Continuity of Care Document ---
Author Name Unknown Organization [facility] Address [address] [place] [address]- Care Team Providers Care Merchandising Manager Name Role Phone Rahat GERBER, Gaye Macias Primary Care Physician [facility] [place] Date(s): 10/15/21 - 10/22/21 [facility] [address] [place] [address]- Encounter Diagnosis Acute low back pain(Discharge Diagnosis) - 10/15/21 Osteoporosis(Discharge Diagnosis) - 10/15/21 Elevated blood pressure reading without diagnosis of hypertension(Discharge Diagnosis) - 10/15/21 Attending Physician: Olivia Dewey NP Referring Physician: Rahat GERBER, Gaye Macias Allergies, Adverse Reactions, Alerts Substance Reaction Severity Status atenolol Active codeine Active ibuprofen Active tetracycline Active clindamycin Active erythromycin Active penicillin Active sulfADIAZINE All sulfa drugs Active vancomycin 1 rash Persistent Mild Active metoprolol Active aspirin Active caffeine Active shellfish Active Benadryl, Topical 2 Active Keflex Active Cleocin T Active Fosamax Active Cefzil Active Tums Active Levaquin Active Tylenol Active Bactrim Active Biaxin XL Active Adhesive Bandage rash Active Cats Active Contrast Dye Active [place] Active Dogs Active Dust Active Horses Active Latex rash Active Mold Active Nuts Active Pork Active Soy Products Active fentaNYL Active doxycycline 3 Moderate Active 1rash 2Pt States she tolerates Benadryl by mouth fine 11/06/20 3Rash Immunizations Given and Recorded Vaccine Date Status [...] Effective Dates Health Status Clinical Service Informant Acute low back pain Discharge Diagnosis 10/15/21 Osteoporosis Discharge Diagnosis 10/15/21 Elevated blood pressure reading without diagnosis of hypertension Discharge Diagnosis 10/15/21 Vital Signs Most recent to oldest [Reference Range]: 1 2 Height 150 cm (10/15/21 4:31 PM) 150 cm (10/15/21 3:59 PM) Oxygen Saturation [94-100 %] 98 % (10/15/21 3:59 PM) Pulse Rate [55-90 bpm] 90 bpm (10/15/21 3:59 PM) Blood Pressure [90-138/55-84 mm Hg] 155/ 82mm Hg *H* (10/15/21 4:31 PM) 159/90mm Hg *H* (10/15/21 3:59 PM) Respiratory Rate [16-30 br/min] 18 br/mi n (10/15/21 3:59 PM) Blood pressure sites Arm, right (10/15/21 4:31 PM) Arm, right (10/15/21 3:59 PM) Social History Social History Type Response Smoking Status Never (less than 100 in lifetime) entered on: 05/30/19 Sex
--- OUTSIDE RECORDS SUMMARY | 2023-05-02 12:18 | XMS_ITS | Continuity of Care Document ---
Author Name Unknown Organization [facility] Address [address] [place] [address]- Care Team Providers Care Quality Assurance Name Role Phone Patti HARDEN, Shandra Lance Primary Care Physician [phone] [place] [facility] [place] 03/13/21 - 04/28/21 [facility] [address] [place] [address]- Attending Physician: Rahat GERBER, Gaye Macias Allergies, Adverse Reactions, Alerts Substance Reaction Severity Status atenolol Active codeine Active tetracycline Active clindamycin Active erythromycin Active penicillin Active vancomycin 1 rash Persistent Mild Active metoprolol Active shellfish Active Benadryl, Topical 2 Active Keflex Active Cleocin T Active ibuprofen Active aspirin Active doxycycline 3 Moderate Active sulfADIAZINE All sulfa drugs Active caffeine Active Fosamax Active Cefzil Active Tums Active Levaquin Active Tylenol Active Cats Active [place] Active Horses Active Mold Active Nuts Active Soy Products Active fentaNYL Active Latex rash Active Bactrim Active Biaxin XL Active Adhesive Bandage rash Active Contrast Dye Active Dogs Active Dust Active Pork Active 1rash 2Pt States she tolerates Benadryl [...] Refills, Maintenance, 12/25/20 10:09:00 [id number], Partial fill upon patient request if the [...] stasis(Confirmed) Active 1Dr Melo rheum 2Dr Soco 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
--- OUTSIDE RECORDS SUMMARY | 2023-05-02 12:18 | XMS_ITS | Continuity of Care Document ---
Author Name Unknown Organization [facility] Address [address] [place] [address]- Care Team Providers Care Gear Hobber Name Role Phone Rahat GERBER, Gaye Macias Primary Care Physician [place] [facility] [place] Date(s[place] 02/27/22 - 03/06/22 [facility] [address] [place] [address]- Encounter Diagnosis Incisional irritation(Discharge Diagnosis) - 02/27/22 S/P right hemicolectomy(Discharge Diagnosis) - 02/27/22 Attending Physician: Ruma Bravo MD Allergies, Adverse [...] Levaquin Active Tylenol Active Biaxin XL Active Dogs Active Dust Active Horses Active Mold Active Nuts Active Bactrim Active Adhesive Bandage rash Active Cats Active [place] Active Contrast Dye Active Latex rash Active Other Food Allergy [...] 01/22/22 15:19:00 EDT, Route to Pharmacy Electronically, [id number], Partialfill upon patient request if the prescription is fo... Start Date: 01/22/22 Stop Date: 04/22/22 Status: Ordered metroNIDAZOLE 500 mg oral tablet 1 tablet = 500 mg, By Mouth, 3 times a day, # 15 tablet, 0 Refills, Maintenance, 02/27/22 16:27:00 EDT, Tablet, [facility][id number], Partial fill upon patient request if the prescription is for a schedule II opioid drug., 150, cm, 02/27/22 15:... Start Date: 02/27/22 Stop Date: 03/04/22 Status: Ordered mupirocin 2% topical ointment 1 application, Topically, 3 times a day, # 22 Gm, 1 Refills, Acute 03/11/22 14:41:00 EST, 03/03/22 14:41:00 EDT, Ointment, [facility][id number], Partial fill upon patient request if the prescription is for a schedule II opioid drug., 1 applicat... Start Date: 03/03/22 Stop Date: 03/11/22 Status: Ordered Omeprazole = 40 mg, By [...] Effective Dates Health Status Clinical Service Informant Incisional irritation Discharge Diagnosis 02/27/22 S/P right hemicolectomy Discharge Diagnosis 02/27/22 Vital Signs Most recent to oldest [Reference Range]: 1 Height 150 cm (02/27/22 3:50 PM) Weight 45.9 kg (02/27/22 3:50 PM) Oxygen Saturation [94-100 %] 100 % (02/27/22 3:50 PM) Pulse Rate [55-90 bpm] 98 bpm *H* (02/27/22 3:50 PM) Body Mass Index [18.5-24.99 kg/m2] 20.4 kg/m2 (02/27/22 3:50 PM) Blood Pressure [90-138/55-84 mm Hg] 115/ 76mm Hg (02/27/22 3:50 PM) Blood pressure sites Arm, right (02/27/22 3:50 PM) Social History Social History Type Response Smoking Status Never (less than 100 in lifetime) entered on: 05/30/19 Sex Patient Care team information Personnel Name: Rahat GERBER, Gaye Macias [facility] [address]
--- OUTSIDE RECORDS SUMMARY | 2023-05-02 12:19 | XMS_ITS | Continuity of Care Document ---
Author Name Unknown Organization [facility] Address [address] [address]- Care Team Providers Care Weed Cooking Operator Name Role Phone Rahat GERBER, Gaye Macias Primary Care Physician [place] [facility] [place] 08[place] [facility] [address] [address]- Attending Physician: Will Wilson Admitting Physician: Admtr, [...] rash Active Cats Active Contrast Dye Active [place] Active Dogs Active Dust Active Horses Active [...] Instructions Replace Required Details, Route to PharmacyElectronically, [facility][id number], 150, c... Start Date: 06/24/22 Status: Ordered lisinopril 5 mg oral tablet 5 mg, 1, tablet, By Mouth, Daily, new start 01/22/22, # 30 tablet, Refills 2, Tot. Refills 2, Maintenance, 01/22/22 15:19:00 EDT, Route to Pharmacy Electronically, [facility][id number], Partialfill upon patient request if the prescription [...] Care Team Personnel Name: Yin Hsu Position: [facility] Onco RN Member Role: Primary Care Nurse Name: Gaye Giang MD Position: [facility] Primary Care Physician Member Role: PCP Address: Address: [address] [place] [address] Family Medicine [address] Name: Consuelo Louis RN Position: [facility] RN Member Role: Primary Care Nurse Name: Cherry Olsen MD Position: [facility] SLOT MACHINE FLOOR PERSON MD Member Role: Lifetime SLOT MACHINE FLOOR PERSON Physician Address: Address: [address] [place] [address] [facility] [facility] [place] [address]- Name: Maeve Jones RN Position: [facility] RN Member Role: Primary Care Nurse Care Team Related Persons Name: MEG MARTIN Address: home [address] [place] [id number] Name: JAKE RODRIGUES Address: [place] [address]
--- OUTSIDE RECORDS SUMMARY | 2023-05-02 12:19 | XMS_ITS | Continuity of Care Document ---
Author Name Unknown Organization [facility] Address [address] [place] [address]- Care Team Providers Care Commissions Analyst Name Role Phone Yolanda Fischer MD Primary Care Physician [place] [facility] [place] [facility] [address] [place] [id number] Allergies, Adverse Reactions, Alerts Substance [...] rash Active Cats Active Contrast Dye Active [place] Active Dogs Active Dust Active Horses Active [...] each, 2 Refills, Maintenance, 12/25/20 10:09:00 EDT, [email or web address][id number], Partial fill upon patient request if the prescription is for a schedule II opioid drug., 150, cm, 12/25/20 9:32:00 EDT, H... 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 if positive for ca will need colon resection Social History Social History Type Response Smoking Status Never (less than 100 in lifetime) entered on: 05/30/19 Sex
--- OUTSIDE RECORDS SUMMARY | 2023-05-02 12:19 | XMS_ITS | Continuity of Care Document ---
Author Name Unknown Organization [facility] Address [address] [place] [address]- Care Team Providers Care Chief Psychologist Name Role Phone Lawrence GERBER, Ruma Bauer Primary Care Physician Encounter [place] Date(s): 03/29/23 - 04/28/23 [facility] [address] [place] [address] Allergies, Adverse Reactions, Alerts Substance Reaction Severity Status atenolol Active codeine Active amoxicillin Active penicillin Active caffeine Active [...] Cleocin T Active Fosamax Active Augmentin Active Adhesive Bandage rash Active Cats Active [place] Active Contrast Dye Active Dogs Active Dust [...] 1 Refills, Maintenance, 01/19/23 10:23:00 EDT, Tablet, [id number], Partial fill upon patient request if the [...] Gm, 0 Refills, Maintenance, 12/17/22 11:48:00 EDT, [facility] #[id number], Partial fill upon patient request if the prescription is for a schedule II opioid drug., 152, cm,... Start Date: 12/17/22 Status: Ordered diclofenac 1% topical gel 1 application, Topically, 4 times a day, # 100 Gm, 0 Refills, Maintenance, 12/25/22 11:12:00 EDT, [facility] #[id number], Partial fill upon patient request if the prescription is for a schedule II opioid drug., 152, cm, 12/25/22 10:26:00 EDT... Start Date: 12/25/22 Status: Ordered diphenhydrAMINE 50 mg oral tablet 1 tablet = 50 mg, By Mouth, Once, [address] scan, # 1 tablet, 2 Refills, Soft Stop, 10/15/22 14:04:00 EDT, [facility][id number], Partial fill upon patient request if the [...] 11/03/22 16:12:00 EDT, Route to Pharmacy Electronically, [facility][id number], Partial fill upon patient request if the [...] 3 Refills, Maintenance, 03/24/23 9:43:00 EST, Tablet, [facility] #[id number],... Start Date: 03/24/23 Status: Ordered lisinopril 5 mg oral tablet 5 mg, 1, tablet, By Mouth, Daily, # 90 tablet, Refills 1, Tot. Refills 1, Maintenance, 09/02/22 9:47:00 EDT, Route to Pharmacy Electronically, [facility] #[id number], 150, cm, 08/27/22 14:11:00 EDT, Height, 45.9, [...] Care Team Personnel Name: Yin Hsu Position: [facility] Onco RN Member Role: Primary Care Nurse Name: Ruma Bravo MD Position: [facility] Physician - Primary Care Member Role: PCP Address: Address: [address] [facility] - [place], [place] [address] Name: Shikha Rivera RN Position: [facility] RN Member Role: Primary Care Nurse Name: Consuelo Louis RN Position: [facility] RN Member Role: Primary Care Nurse Name: Cherry Olsen MD Position: [facility] SAP BPC ARCHITECT MD Member Role: Lifetime SAP BPC ARCHITECT Physician [facility]: [facility] Professor Of Chemical Engineering - [place], [place] [address] Name: Maeve Jones RN Position: [facility] RN Member Role: Primary Care Nurse Care Team Related Persons Name: MEG MARTIN Address: home [address] [place] [address] Name: JAKE RODRIGUES Address: [place] [address]
--- OUTSIDE RECORDS SUMMARY | 2023-05-02 12:19 | XMS_ITS | Continuity of Care Document ---
Author Name Unknown Organization [facility] Address [address] [place] [address]- Care Team Providers Care Operating Room Technician Name Role Phone Patti HAREDN, Shandra Lance Primary Care Physician [phone] Encounter [facility] [place] Date(s): 05/27/21 - 06/26/21 [facility] [address] [place] [id number] Attending Physician: Admsharonda, Will Admitting Physician: Admtr, Ar8 Referring Physician: Admtr, Ar8 Allergies, Adverse Reactions, Alerts Substance Reaction Severity Status atenolol Active codeine Active penicillin Active shellfish Active Keflex Active Cleocin T [...] Active Adhesive Bandage rash Active Cats Active [place] Active Contrast Dye Active Dogs Active Dust [...] each, 2 Refills, Maintenance, 12/25/20 10:09:00 EDT, [facility][id number], Partial fill upon patient request if the [...] Active 1Dr Melo rheum 2Dr Soco store planner multiple food and drug allergies 3[facility] 4colonoscopy 06/21/2019 removed 4 polyps. if positive for ca will need colon resection 5Late April 2020 6Pt. had 2nd Pfizer vaccine on 09/19 and pain in her L hand on 10/07. Social History Social History Type Response Smoking Status Never (less than 100 in lifetime) entered on: 05/30/19 Sex
--- OUTSIDE RECORDS SUMMARY | 2023-05-02 12:19 | XMS_ITS | Continuity of Care Document ---
Author Name Unknown Organization [facility] Address [address] [address]- Care Team Providers Care Wealth Management Consultant Name Role Phone Rahat GERBER, Gaye Macias Primary Care Physician [place] [facility] [place] - 06/22/22 [facility] [address] [address] Allergies, Adverse Reactions, Alerts Substance Reaction Severity Status atenolol Active codeine Active penicillin Active Benadryl, Topical 1 Active ibuprofen Active aspirin Active doxycycline 2 Moderate Active tetracycline Active clindamycin Active erythromycin Active shellfish Active sulfADIAZINE All sulfa drugs Active metoprolol Active caffeine Active Keflex Active Fosamax Active Cleocin T Active Cefzil Active Tums Active Levaquin Active Tylenol Active Horses Active Mold Active Nuts Active Bactrim Active Biaxin XL Active Adhesive Bandage rash Active Cats Active [place] Active Contrast Dye Active Dogs Active Dust Active Latex rash Active Other Food Allergy chicken broccoli other veggetables tomatoes onions cucumbers lettuce peas carrots wheat rash hives itchy Active Soy Products Active fentaNYL Active 1Pt States she tolerates Benadryl by mouth fine 11/06/20 2Rash Immunizations Given and Recorded Vaccine Date Status [...] 01/22/22 15:19:00 EDT, Route to Pharmacy Electronically, [facility][id number], Partialfill upon patient request if the prescription is fo... Start Date: 01/22/22 Stop Date: 04/22/22 Status: Ordered metroNIDAZOLE 500 mg oral tablet 1 tablet = 500 mg, By Mouth, 3 times a day, # 15 tablet, 0 Refills, Maintenance, 02/27/22 16:27:00 EDT, Tablet, [facility][id number], Partial fill upon patient request if the [...] Care Nurse Name: Gaye Giang MD Position: [facility] Primary Care Physician Member Role: PCP Address: Address: [address] [place] [address] [place] [address]- Name: Consuelo Louis RN Position: [facility] RN Member Role: Primary Care Nurse Name: Cherry Olsen MD Position: [facility] STONE FINISHER MD Member Role: Lifetime STONE FINISHER Physician Address: Address: [address] [place] [address] Women's Health [place] [address]- Name: Maeve Jones RN Position: [facility] RN Member Role: Primary Care Nurse Care Team Related Persons Name: MEG MARTIN Address: home [address] [place] [id number] Name: JAKE RODRIGUES Address: [place] [address]
--- OUTSIDE RECORDS SUMMARY | 2023-05-02 12:19 | XMS_ITS | Continuity of Care Document ---
Author Name Unknown Organization [facility] Address [address] [place] [address]- Care Team Providers Care Division Supervisor Name Role Phone Lawrence GERBER, Ruma Bauer Primary Care Physician [place] [facility] [place] 09[place]22 [facility] [address] [place] [address]- Allergies, Adverse Reactions, Alerts Substance Reaction Severity [...] rash Active Cats Active Contrast Dye Active [place] Active Dogs Active Dust Active Horses Active [...] 2 Refills, Maintenance, 09/08/22 10:06:00 EDT, Tablet, [facility][id number],... Start Date: 09/08/22 Status: Ordered lisinopril 5 mg oral tablet 5 mg, 1, tablet, By Mouth, Daily, new start 01/22/22, # 30 tablet, Refills 2, Tot. Refills 2, Maintenance, 01/22/22 15:19:00 EDT, Route to Pharmacy Electronically, [facility][id number], Partialfill upon patient request if the prescription is fo... Start Date: 01/22/22 Stop Date: 04/22/22 Status: Ordered lisinopril 5 mg oral tablet 5 mg, 1, tablet, By Mouth, Daily, # 90 tablet, Refills 1, Tot. Refills 1, Maintenance, 09/02/22 9:47:00 EDT, Route to Pharmacy Electronically, [facility] #[id number], 150, cm, 08/27/22 14:11:00 EDT, Height, 45.9, [...] Care Team Personnel Name: Yin Hsu Position: [facility] Onco RN Member Role: Primary Care Nurse Name: Ruma Bravo MD Position: [facility] Primary Care Physician Member Role: PCP Address: Address: [address] [place] [address] [place] [address]- Name: Consuelo Louis RN Position: [facility] RN Member Role: Primary Care Nurse Name: Cherry Olsen MD Position: [facility] CRM DEVELOPER MD Member Role: Lifetime CRM DEVELOPER Physician Address: Address: [address] Women's [place] [address]- Name: Maeve Jones RN Position: [facility] RN Member Role: Primary Care Nurse Care Team Related Persons Name: MEG MARTIN Address: home [address] [place] [address] Name: JAKE RODRIGUES Address: [place] [address]
--- OUTSIDE RECORDS SUMMARY | 2023-05-02 12:19 | XMS_ITS | Continuity of Care Document ---
Author Name Unknown Organization [facility] Address [address] [address]- Care Team Providers Care Manager Cardiac Name Role Phone Yolanda Fischer MD Primary Care Physician [place] [facility] [place] 11/10/20 [facility] [address] [address]- Attending Physician: Savanah Charlton Admitting Physician: Savanah [...] rash Active Cats Active Contrast Dye Active [place] Active Dogs Active Dust Active Horses Active [...] 11/16/20 7:37:00 EDT, 11/06/20 7:37:00 EDT, Tablet, [facility], Partial fill upon patient requestif [...] stasis(Confirmed) Active 1Dr Melo rheum 2Dr Soco 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 if positive for ca will need colon resection Social History Social History Type Response Smoking Status Never (less than 100 in lifetime) entered on: 05/30/19 Sex
--- OUTSIDE RECORDS SUMMARY | 2023-05-02 12:19 | XMS_ITS | Continuity of Care Document ---
Author Name Unknown Organization [facility] Address [address] [place] [address]- Care Team Providers Care Member Of The Legislative Council Name Role Phone Rahat GERBER, Gaye Macias Primary Care Physician En[place] [facility] [place] Date(s): 12/23/21 - 02/16/22 [facility] [address] [place] [address]- Attending Physician: Gaye Giang MD Allergies, Adverse [...] rash Active Cats Active Contrast Dye Active [place] Active Dogs Active Dust Active Horses Active [...] 01/22/22 15:19:00 EDT, [id number], Partialfill upon patient request if the prescription [...] Rahat GERBER, Gaye Macias Address: Address: [address] [place], [place] [address]
--- OUTSIDE RECORDS SUMMARY | 2023-05-02 12:19 | XMS_ITS | Continuity of Care Document ---
Author Name Unknown Organization [facility] Address [address] [place] [address]- Care Team Providers Care Science Teacher Name Role Phone Gaye Giang MD Primary Care Physician ( [phone] Encounter [facility] [place] Date(s): 11/22/21 - 05/31/22 [facility] [address] [place] [address] Attending Physician: Laury Espinosa MD Admitting Physician: Laury Espinosa MD Referring Physician: Gaye Giang MD Allergies, [...] Active Adhesive Bandage rash Active Cats Active [place] Active Contrast Dye Active Dogs Active Dust [...] 01/22/22 15:19:00 EDT, Route to Pharmacy Electronically, [facility] #[id number], Partialfill upon patient request if the prescription is fo... Start Date: 01/22/22 Stop Date: 04/22/22 Status: Ordered metroNIDAZOLE 500 mg oral tablet 1 tablet = 500 mg, By Mouth, 3 times a day, # 15 tablet, 0 Refills, Maintenance, 02/27/22 16:27:00 EDT, Tablet, [facility] #[id number], Partial fill upon patient request if the [...] Care Nurse Name: Gaye Giang MD Position: [facility] Primary Care Physician Member Role: PCP Address: Address: [address] [place] [address] [place] [address]- Name: Consuelo Louis RN Position: [facility] RN Member Role: Primary Care Nurse Name: Cherry Olsen MD Position: [facility] CEMENT TESTER ASSISTANT MD Member Role: Lifetime CEMENT TESTER ASSISTANT Physician Address: Address: [address] [place] [address] Women's Health [place] [address]- Name: Maeve Jones RN Position: [facility] RN Member Role: Primary Care Nurse Care Team Related Persons Name: MEG MARTIN Address: home [address] [place] [address] Name: JAKE RODRIGUES Address: [place] [address]
--- OUTSIDE RECORDS SUMMARY | 2023-05-02 12:19 | XMS_ITS | Continuity of Care Document ---
Author Name Unknown Organization [facility] Address [address] [place] [address]- Care Team Providers Care Store Operations Manager Name Role Phone Yolanda Fischer MD Primary Care Physician [place] [facility] [place] Date(s): 11/15/20 - 01/16/21 [facility] [address] [place] [address]- Attending Physician: Yolanda Fischer MD Allergies, Adverse Reactions, Alerts Substance Reaction Severity Status atenolol Active codeine Active doxycycline 1 Moderate Active clindamycin Active penicillin Active ibuprofen Active aspirin Active tetracycline Active erythromycin Active shellfish Active sulfADIAZINE All sulfa drugs Active vancomycin 2 rash Persistent Mild Active metoprolol Active caffeine Active Benadryl, Topical 3 Active Keflex Active Cleocin T Active Fosamax Active Cefzil Active Tums Active Levaquin Active Tylenol Active Cats Active [place] Active Horses Active Latex rash Active Mold [...] each, 2 Refills, Maintenance, 12/25/20 10:09:00 EDT, [facility] #[id number], Partial fill upon patient request if the [...] kit, 0 Refills, Maintenance, 01/14/21 12:14:00 EDT, [facility] #[id number], Partial fill upon patient request if the [...] 1Dr Melo rheum 2Dr Soco director of oncology multiple food and drug allergies 3[facility] 4colonoscopy 06/21/2019 removed 4 polyps. if positive for ca will need colon resection Social History Social History Type Response Smoking Status Never (less than 100 in lifetime) entered on: 05/30/19 Sex
--- OUTSIDE RECORDS SUMMARY | 2023-05-02 12:19 | XMS_ITS | Continuity of Care Document ---
Author Name Unknown Organization [facility] Address [address] [place] [address]- Care Team Providers Care Radiological Health Specialist Name Role Phone Patti HARDEN, Shandra Lance Primary Care Physician En[place] [facility] [place] Date(s): 06/24/21 - 07/24/21 [facility] [address] [place] [address]- Allergies, Adverse Reactions, Alerts Substance Reaction Severity Status atenolol Active codeine Active clindamycin Active penicillin Active caffeine Active ibuprofen Active aspirin Active doxycycline 1 Moderate Active tetracycline Active erythromycin Active shellfish Active sulfADIAZINE All sulfa drugs Active vancomycin 2 rash Persistent Mild Active metoprolol Active Benadryl, Topical 3 Active Keflex Active Cleocin T Active Fosamax Active Cefzil Active Tums Active Levaquin Active Tylenol Active Dogs Active Dust Active Horses Active Mold Active Nuts Active Soy Products Active fentaNYL Active Latex rash Active Bactrim Active Biaxin XL Active Adhesive Bandage rash Active Cats Active [place] Active Contrast Dye Active [place] Active 1Rash [...] each, 2 Refills, Maintenance, 12/25/20 10:09:00 EDT, [facility] #[id number], Partial fill upon patient request if the [...] stasis(Confirmed) Active 1Dr Melo rheum 2Dr Soco stick puller multiple food and drug allergies 3[facility] 4colonoscopy 06/21/2019 removed 4 polyps. if positive for ca will need colon resection 5Late April 2020 6Pt. had 2nd Pfizer vaccine on 09/19 and pain in her L hand on 10/07. Social History Social History Type Response Smoking Status Never (less than 100 in lifetime) entered on: 05/30/19 Sex
--- OUTSIDE RECORDS SUMMARY | 2023-05-02 12:19 | XMS_ITS | Continuity of Care Document ---
Author Name Unknown Organization [facility] Address [address] [place] [address]- Care Team Providers Care Pull Worker Name Role Phone Patti HARDEN, Shandra Lance Primary Care Physician En[place] [facility] [place] Date(s): 02/18/21 - 03/20/21 [facility] [address] [place] [address]- Allergies, Adverse Reactions, Alerts Substance Reaction Severity [...] rash Active Cats Active Contrast Dye Active [place] Active Dogs Active Dust Active Horses Active [...] each, 2 Refills, Maintenance, 12/25/20 10:09:00 EDT, [facility] #[id number], Partial fill upon patient request if the [...] kit, 0 Refills, Maintenance, 01/14/21 12:14:00 EDT, [facility] #[id number], Partial fill upon patient request if the [...] stasis(Confirmed) Active 1Dr Melo rheum 2Dr Soco customer greeter multiple food and drug allergies 3[facility] 4colonoscopy 06/21/2019 removed 4 polyps. if positive for ca will need colon resection 5Late April 2020 6Pt. had 2nd Pfizer vaccine on 09/19 and pain in her L hand on 10/07. Social History Social History Type Response Smoking Status Never (less than 100 in lifetime) entered on: 05/30/19 Sex
--- OUTSIDE RECORDS SUMMARY | 2023-05-02 12:19 | XMS_ITS | Continuity of Care Document ---
Author Name Unknown Organization [facility] ter Address [address] [place] [address]- Care Team Providers Care Economics Department Chair Name Role Phone Rahat GERBER, Gaye Macias Primary Care Physician Encounter [facility] [place] Date(s): 11/27/21 - 11/27/[address] [address]- Attending Physician: Laury Espinosa MD Allergies, Adverse Reactions, [...] rash Active Cats Active Contrast Dye Active [place] Active Dogs Active Dust Active Horses [...]
--- OUTSIDE RECORDS SUMMARY | 2023-05-02 12:19 | XMS_ITS | Continuity of Care Document ---
Author Name Unknown Organization [facility] Address [address] [place] [address]- Care Team Providers Care Software Computer Specialist Name Role Phone Yolanda Fischer MD Primary Care Physician Encounter [facility] [place] Date(s): 05/09/20 - 05/16/20 [facility] [address] [place] [address]- Encounter Diagnosis COVID-19 virus infection(Discharge Diagnosis) - 05/09/20 Attending Physician: Chuck PLATFORM SOFTWARE ENGINEER, Crystal Allergies, Adverse Reactions, Alerts Substance Reaction [...] Active Cats Active Contrast Dye Active [place] Active Dogs Active Dust Active Horses Active [...] Refills, Maintenance, 04/17/20 10:01:00 [id number], [place]... Start Date: 04/17/20 Status: Ordered Multivitamins [...] stasis(Confirmed) Active 1Dr Melo rheum 2Dr Soco cashier checker multiple food and drug allergies 3[facility] 4colonoscopy 06/21/2019 removed 4 polyps. if positive for ca will need colon resection Diagnosis Diagnosis Type Effective Dates Health Status Cl inical Service Informant COVID-19 virus infection Discharge Diagnosis 05/09/20 Vital Signs Most recent to oldest [Reference Range]: 1 Height 150.0 cm (05/08/20 4:55 PM) Social History Social History Type Response Smoking Status Never (less than 100 in lifetime) entered on: 05/30/19 Sex Female
--- OUTSIDE RECORDS SUMMARY | 2023-05-02 12:19 | XMS_ITS | Continuity of Care Document ---
Author Name Unknown Organization [facility] Address [address] [place] [address]- Care Team Providers Care Reflesher Name Role Phone Patti HARDEN, Shandra Lance Primary Care Physician [phone] Encounter [id number] Date(s): 02/16/21 - 03/18/21 [facility] [address] [place] [address]- Attending Physician: Will Wilson Admitting Physician: AdmtrWill [...] rash Active Cats Active Contrast Dye Active [place] Active Dogs Active Dust Active Horses Active [...] each, 2 Refills, Maintenance, 12/25/20 10:09:00 EDT, [email or web address] #[id number], Partial fill upon patient request if the [...] kit, 0 Refills, Maintenance, 01/14/21 12:14:00 EDT, [facility] #[id number], Partial fill upon patient request if the [...] stasis(Confirmed) Active 1Dr Melo rheum 2Dr Soco business development recruiter multiple food and drug allergies 3[facility] 4colonoscopy 06/21/2019 removed 4 polyps. if positive for ca will need colon resection 5Late April 2020 6Pt. had 2nd Pfizer vaccine on 09/19 and pain in her L hand on 10/07. Social History Social History Type Response Smoking Status Never (less than 100 in lifetime) entered on: 05/30/19 Sex
--- OUTSIDE RECORDS SUMMARY | 2023-05-02 12:19 | XMS_ITS | Continuity of Care Document ---
Author Name Unknown Organization [facility] [address] [facility] Address [address] [place] [address]- Care Team Providers Care Mat Machine Tender Name Role Phone Yolanda Fischer MD Primary Care Physician En[facility] [place] Date(s): 08/01/19 - 08/08/19 [facility] [address] [place] [address]- [place] Encounter Diagnosis Viral syndrome(Discharge Diagnosis) - 08/01/19 Fibromyalgia(Discharge Diagnosis) - 08/01/19 Attending Physician: Yolanda Fischer MD Allergies, Adverse [...] Active Adhesive Bandage rash Active Cats Active [place] Active Dogs Active Dust Active Horses Active [...] Refills, Maintenance Start Date: 11/10/12 Status: Ordered Suprep Bowel Prep Kit oral liquid See Instructions, 176ml by mouth x 2 as directed before procedure, # 1 kit, 0 Refills, Maintenance,07/05/19 20:40:00 EST, [facility] #[id number], 176ml by mouth x 2 as directed before procedure, 149.9, cm, 06/21/19 10:45:00 EST, Height Start Date: 07/05/19 Status: Ordered Problem List Condition Effective Dates [...] bleeding(Confirmed) Active 1Dr Melo rheum 2Dr Soco radio installer multiple food and drug allergies 3[facility] 4colonoscopy 06/21/2019 removed 4 polyps. if positive for ca will need colon resection Diagnosis Diagnosis Type Effective Dates Health Status Cl inical Service Informant Viral syndrome Discharge Diagnosis 08/01/19 Fibromyalgia Discharge Diagnosis 08/01/19 Social History Social History Type Response Smoking Status Never (less than 100 in lifetime) entered on: 05/30/19 Sex
--- OUTSIDE RECORDS SUMMARY | 2023-05-02 12:19 | XMS_ITS | Continuity of Care Document ---
Author Name Unknown Organization [facility] Address [address] [place] [address]- Care Team Providers Care Emergency Vehicle Dispatcher Name Role Phone Lawrence GERBER, Ruma Bauer Primary Care Physician Encounter [facility] [place] Date(s): 10/21/22 - 11/20/22 [facility] [address] [place] [address]- Allergies, Adverse Reactions, Alerts Substance Reaction Severity Status atenolol Active codeine Active penicillin Active sulfa drugs Active ibuprofen Active aspirin Active doxycycline 1 Moderate Active tetracycline Active clindamycin Active erythromycin Active amoxicillin Active sulfADIAZINE All sulfa drugs Active metoprolol Active predniSONE Allergy to sulfa drugs Activ e caffeine Active shellfish Active Keflex Active Cefzil Active Tums Active Levaquin Active Tylenol Active Horses Active Mold Active Nuts Active Benadryl, Topical 2 Active Cleocin T Active Fosamax Active Augmentin Active Bactrim Active Biaxin XL Active Adhesive Bandage rash Active Cats Active [place] Active Contrast Dye Active Dogs Active Dust [...] 2 Refills, Soft Stop, 10/15/22 14:04:00 EDT, [facility] #[id number], Partial fill upon patient request if the [...] 11/03/22 16:12:00 EDT, Route to Pharmacy Electronically, [facility] #[id number], Partial fill upon patient request if the [...] 2 Refills, Maintenance, 09/08/22 10:06:00 EDT, Tablet, [facility] #[id number],... Start Date: 09/08/22 Status: Ordered lisinopril 5 mg oral tablet 5 mg, 1, tablet, By Mouth, Daily, # 90 tablet, Refills 1, Tot. Refills 1, Maintenance, 09/02/22 9:47:00 EDT, Route to Pharmacy Electronically, [facility] #[id number], 150, cm, 08/27/22 14:11:00 EDT, Height, 45.9, [...] Refills, Soft Stop, 11/03/22 16:11:00 EDT, Tablet, [facility] #[id number], Partial fill upon patient request if the [...] Team Personnel Name: Shadi , Yin Position: [facility] Onco RN Member Role: Primary Care Nurse Name: Ruma Bravo MD Position: [facility] Physician - Primary Care Member Role: PCP Address: Address: [address] [place] [address] Family Medicine [address] Name: Pretty GERBER, Cherry Gaines Position: [facility] DRILL RUNNER MD Member Role: Lifetime DRILL RUNNER Physician Address: Address: [address] [place] [address] Women's Health Mechanical Design Engineer Facilities [address] Name: Maeve Jones RN Position: [facility] RN Member Role: Primary Care Nurse Care Team Related Persons Name: MEG MARTIN Address: home [address] [place] [id number] Name: JAKE RODRIGUES Address: [place] [address]
--- OUTSIDE RECORDS SUMMARY | 2023-05-02 12:19 | XMS_ITS | Continuity of Care Document ---
Author Name Unknown Organization [facility] Address [address] [place] [address]- Care Team Providers Care Lard Bleacher Name Role Phone Lawrence GERBER, Ruma Bauer Primary Care Physician Encounter [facility] Date(s): 08/27/22 - 09/03/22 [facility] [address] [place] [address]- Encounter Diagnosis Abdominal pain, generalized(Discharge Diagnosis) - 08/27/22 Hemorrhoids(Discharge Diagnosis) - 08/29/22 History of hemicolectomy- due to a large adenoma polyp- 2022, complicated healing(Discharge Diagnosis) - 08/29/22 Attending Physician: Gaye Giang MD Allergies, Adverse [...] rash Active Cats Active Contrast Dye Active [place] Active Dogs Active Dust Active Horses Active [...] 01/22/22 15:19:00 EDT, Route to Pharmacy Electronically, [facility][id number], Partialfill upon patient request if the prescription is fo... Start Date: 01/22/22 Stop Date: 04/22/22 Status: Ordered lisinopril 5 mg oral tablet 5 mg, 1, tablet, By Mouth, Daily, # 90 tablet, Refills 1, Tot. Refills 1, Maintenance, 09/02/22 9:47:00 EDT, Route to Pharmacy Electronically, [facility] #[id number], 150, cm, 08/27/22 14:11:00 EDT, Height, 45.9, [...] Effective Dates Health Status Clinical Service Informant Abdominal pain, generalized Discharge Diagnosis 08/27/22 Hemorrhoids Discharge Diagnosis 08/29/22 History of hemicolectomy- due to a large adenoma polyp- 2022, complicated healing 1 Discharge Diagnosis 08/29/22 Non-Specified 21:58 EPHRAIM Giang MD, Gaye Macias 2022, complicated healing 08/29/2022 21:52 EPHRAIM Giang MD, Gaye Macias due to a large adenoma polyp Procedures Procedure Date Related Diagnosis Body Site Status Hemicolectomy- due to large adenoma 2022 Completed Vital Signs Most recent to oldest [Reference Range]: 1 Height 150 cm (08/27/22 2:11 PM) Social History Social History Type Response Smoking Status Never (less than 100 in lifetime) entered on: 05/30/19 Sex Note * Lashaun Lang: PERFORM, SIGN, VERIFY Event Display: Patient Education/Instruction Authored Date: [id number] [facility] *[facility] Clinical Summary Name NAUN MARTIN Age 77 Years 1945 PCP Lawrence GERBER, Ruma Bauer PCP Visit Date 08/27/2022 14:14:00 Additional Instructions: Scheduled Appointments?? Future Appointments ?*[facility] ?Phone:??--?Fax:??-- ?Appt. Date:??09/08/2022?9:30 AM ?Scheduled Provider:??Francisca GERBER, Laury Jane ?[facility] ?[address]??[place],??[place],??[address] ?Phone:??[phone]?Fax:??-- ?Appt. Date:??09/24/2022?9:30 AM ?Scheduled Provider:??[facility] Rm 15 Follow-Up Instructions ?? Diagnosis Generalized abdominal pain Medications: Please continue your medications until treatment is completed or stopped by your provider. Discuss any questions related to medications with your provider. Medications to Continue with No Changes These medications were not printed or sent to your pharmacy [facility]) Dx foot pain. Refills: 0. Next Dose: EPINEPHrine (EpiPen 2-Jerman) 0.3 Milligram Intramuscular once. Next Dose: Lisinopril (lisinopril 5 mg oral tablet) 1 tab(s) Oral Daily for 30 Days. new start 01/22/22. Refills: 2. Next Dose: Lisinopril (lisinopril 5 mg oral tablet) TAKE 1 TABLET BY MOUTH DAILY NEW. START 01/22/22. Refills: 1. Next Dose: Omeprazole 40 Milligram Oral Daily. Next Dose: Allergy Info:?? fentaNYL; Soy Products; Other Food Allergy; Nuts; Mold; Latex; Horses; Dust; Dogs; [place]; Contrast Dye; Cats; Adhesive Bandage; Biaxin XL; Bactrim; Tylenol; Levaquin; Augmentin; Tums; Cefzil; Fosamax; Cleocin T; Keflex; Benadryl, Topical; shellfish; sulfa drugs; caffeine; predniSONE;aspirin; metoprolol; sulfADIAZINE; penicillin; amoxicillin; erythromycin; clindamycin; tetracycline; doxycycline; ibuprofen; codeine; atenolol Medications Given This Visit Future Orders ?No future orders Vital Signs Height 150 cm Weight BMI Blood Pressure / Temperature Pulse Rate Respiratory Rate 02 Sat Mode of Delivery / You can now view a summary of your hospital visit from the comfort of your home through a free online portal called [employer]. [employer] is a website that allows you to securely view your medical information including discharge summary, medications and follow-up visits. ??You can alsosend a secure electronic message to your doctor???s office to request appointments, renew medications or just ask a question. You can enroll at [email or web address] or register during your next [...] primary care provider, you may find a [facility] provider by calling [facility] at [phone]. For information about the plan of care [...] Care Team Personnel Name: Yin Hsu Position: [facility] Onco RN Member Role: Primary Care Nurse Name: Ruma Bravo MD Position: [facility] Primary Care Physician Member Role: PCP Address: Address: [address] [place] [address] Name: Consuelo Louis RN Position: [facility] RN Member Role: Primary Care Nurse Name: Cherry Olsen MD Position: [facility] CONTROL SYSTEMS DEVELOPER MD Member Role: [employer]etime CONTROL SYSTEMS DEVELOPER Physician Address: Address: [address] [place] [address] Women's Health Facilities Plant Engineer - [address] Name: Maeve Jones RN Position: [facility] RN Member Role: Primary Care Nurse Care Team Related Persons Name: MEG MARTIN Address: [address] [address] Name: JAKE RODRIGUES Address: [place] [address]
--- OUTSIDE RECORDS SUMMARY | 2023-05-02 12:20 | XMS_ITS | Continuity of Care Document ---
Author Name Unknown Organization [facility] Address [address] [address]- Care Team Providers Care Chemist Inorganic Name Role Phone Ruma Bravo MD Primary Care Physician Encounter [facility] Date(s): 02/03/23 - 03/05/23 [facility] [address] [address]- [place] Allergies, Adverse Reactions, Alerts Substance Reaction Severity Status atenolol Active codeine Active ibuprofen Active clindamycin Active penicillin Active metoprolol Active aspirin Active shellfish Active doxycycline 1 Moderate Active tetracycline Active erythromycin Active amoxicillin Active sulfa drugs Active sulfADIAZINE All sulfa drugs Active predniSONE Allergy to sulfa drugs Activ e caffeine Active Benadryl, Topical 2 Active Keflex Active Cefzil Active Tums Active Levaquin Active Tylenol Active Horses Active Mold Active Nuts Active Cleocin T Active Fosamax Active Augmentin Active Bactrim Active Biaxin XL Active Adhesive Bandage rash Active Cats Active [place] Active Contrast Dye Active Dogs Active Dust [...] 1 Refills, Maintenance, 01/19/23 10:23:00 EDT, Tablet, [facility][id number], Partial fill upon patient request if the [...] Gm, 0 Refills, Maintenance, 12/17/22 11:48:00 EDT, [facility] #[id number], Partial fill upon patient request if the prescription is for a schedule II opioid drug., 152, cm,... Start Date: 12/17/22 Status: Ordered diclofenac 1% topical gel 1 application, Topically, 4 times a day, # 100 Gm, 0 Refills, Maintenance, 12/25/22 11:12:00 EDT, [facility] #[id number], Partial fill upon patient request if the prescription is for a schedule II opioid drug., 152, cm, 12/25/22 10:26:00 EDT... Start Date: 12/25/22 Status: Ordered diphenhydrAMINE 50 mg oral tablet 1 tablet = 50 mg, By Mouth, Once, [address] scan, # 1 tablet, 2 Refills, Soft Stop, 10/15/22 14:04:00 EDT, [facility] #[id number], Partial fill upon patient request if the [...] 11/03/22 16:12:00 EDT, Route to Pharmacy Electronically, [facility][id number], Partial fill upon patient request if the [...] 2 Refills, Maintenance, 09/08/22 10:06:00 EDT, Tablet, [facility][id number],... Start Date: 09/08/22 Status: Ordered lisinopril 5 mg oral tablet 5 mg, 1, tablet, By Mouth, Daily, # 90 tablet, Refills 1, Tot. Refills 1, Maintenance, 09/02/22 9:47:00 EDT, Route to Pharmacy Electronically, [facility] #[id number], 150, cm, 08/27/22 14:11:00 EDT, Height, 45.9, [...] Care Nurse Name: Ruma Bravo MD Position: [facility] Physician - Primary Care Member Role: PCP Address: Address: [address] [facility] - [place], [place] [address] Name: Shikha Rivera RN Position: [facility] RN Member Role: Primary Care Nurse Name: Consuelo Louis RN Position: [facility] RN Member Role: Primary Care Nurse Name: Cherry Olsen MD Position: [facility] DIVER HELPER MD Member Role: [employer]etime DIVER HELPER Physician Address: Address: [address] [facility] [place] [address]- Name: Maeve Jones RN Position: [facility] RN Member Role: Primary Care Nurse Care Team Related Persons Name: MEG MARTIN Address: home [address] [place] [address] Name: JAKE RODRIGUES Address: [place] [address]
--- OUTSIDE RECORDS SUMMARY | 2023-05-02 12:20 | XMS_ITS | Continuity of Care Document ---
Author Name Unknown Organization [facility] Address [address] [address]- Care Team Providers Care Diesel Powerplant Mechanic Name Role Phone Yolanda Fischer MD Primary Care Physician Encounter [facility] [place] Date(s): 10/15/20 - 11/14/20 [facility] [address] [address]- [place] Allergies, Adverse Reactions, Alerts Substance Reaction [...] rash Active Cats Active Contrast Dye Active [place] Active Dogs Active Dust Active Horses Active [...] 11/16/20 7:37:00 EDT, 11/06/20 7:37:00 EDT, Tablet, [facility], Partial fill upon patient [...] stasis(Confirmed) Active 1Dr Melo rheum 2Dr Soco waste transportation technician multiple food and drug allergies 3[facility] 4colonoscopy 06/21/2019 removed 4 polyps. if positive for ca will need colon resection Social History Social History Type Response Smoking Status Never (less than 100 in lifetime) entered on: 05/30/19 Sex
--- OUTSIDE RECORDS SUMMARY | 2023-05-02 12:20 | XMS_ITS | Continuity of Care Document ---
Author Name Unknown Organization [facility] Address [address] [place] [address]- Care Team Providers Care Shift Foreman Name Role Phone Yolanda Fischer MD Primary Care Physician [place] [facility] [place] 07/20/20 - 11/17/20 [facility] [address] [place] [address]- Attending Physician: Laury Espinosa MD Admitting Physician: Laury Espinosa MD Referring Physician: Yolanda Fischer MD Allergies, Adverse Reactions, Alerts Substance Reaction Severity Status atenolol Active codeine Active tetracycline Active erythromycin Active penicillin Active shellfish Active Benadryl, Topical 1 Active Keflex Active Cleocin T Active ibuprofen Active aspirin Active doxycycline 2 Moderate Active clindamycin Active sulfADIAZINE All sulfa drugs Active vancomycin 3 rash Persistent Mild Active metoprolol Active caffeine Active Fosamax Active Cefzil Active Tums Active Levaquin Active Tylenol Active Contrast Dye Active Horses Active Mold Active Nuts Active Soy Products Active fentaNYL Active Latex rash Active Bactrim Active Biaxin XL Active Adhesive Bandage rash Active Cats Active [place] Active Dogs Active Dust Active Pork Active [...] Active 1Dr Melo rheum 2Dr Soc[place] senior oracle developer multiple food and drug allergies 3[facility] 4colonoscopy 06/21/2019 removed 4 polyps. if positive for ca will need colon resection Social History Social History Type Response Smoking Status Never (less than 100 in lifetime) entered on: 05/30/19 Sex
--- OUTSIDE RECORDS SUMMARY | 2023-05-02 12:20 | XMS_ITS | Continuity of Care Document ---
Author Name Unknown Organization [facility] Address [address] [place] [address]- Care Team Providers Care High School Professional Name Role Phone Ruma Bravo MD Primary Care Physician [place] [facility] 01/09/23 - 02/08/23 [facility] [address] [place] [address]- Allergies, Adverse Reactions, Alerts Substance Reaction Severity Status atenolol Active codeine Active clindamycin Active amoxicillin Active penicillin Active [...] Active Adhesive Bandage rash Active Cats Active [place] Active Contrast Dye Active Dogs Active Dust [...] 1 Refills, Maintenance, 01/19/23 10:23:00 EDT, Tablet, [facility] #[id number], Partial fill upon patient request if the [...] 0 Refills, Maintenance, 12/17/22 11:48:00 EDT, Gel, [facility] #[id number], Partial fill upon patient request if the prescription is for a schedule II opioid drug., 152, cm,... Start Date: 12/17/22 Status: Ordered diclofenac 1% topical gel 1 application, Topically, 4 times a day, # 100 Gm, 0 Refills, Maintenance, 12/25/22 11:12:00 EDT, [facility][id number], Partial fill upon patient request if the prescription is for a schedule II opioid drug., 152, cm, 12/25/22 10:26:00 EDT... Start Date: 12/25/22 Status: Ordered diphenhydrAMINE 50 mg oral tablet 1 tablet = 50 mg, By Mouth, Once, [address] scan, # 1 tablet, 2 Refills, Soft Stop, 10/15/22 14:04:00 EDT, [facility] #[id number], Partial fill upon patient request if the [...] 11/03/22 16:12:00 EDT, Route to Pharmacy Electronically, [facility] #[id number], Partial fill upon patient request if the [...] 2 Refills, Maintenance, 09/08/22 10:06:00 EDT, Tablet, [facility] #[id number],... Start Date: 09/08/22 Status: Ordered lisinopril 5 mg oral tablet 5 mg, 1, tablet, By Mouth, Daily, # 90 tablet, Refills 1, Tot. Refills 1, Maintenance, 09/02/22 9:47:00 EDT, Route to Pharmacy Electronically, [facility] #[id number], 150, cm, 08/27/22 14:11:00 EDT, Height, 45.9, [...] Care Nurse Name: Ruma Bravo MD Position: [facility] Physician - Primary Care Member Role: PCP Address: Address: [address] [place] [address] Family Medicine - [address] Name: Shikha Rivera RN Position: [facility] RN Member Role: Primary Care Nurse Name: Consuelo Louis RN Position: [facility] RN Member Role: Primary Care Nurse Name: Cherry Olsen MD Position: [facility] CORPORATE SECRETARY MD Member Role: Lifetime CORPORATE SECRETARY Physician Address: Address: [address] [place] [address] Women's Health Escrow Manager [place], [place] [address] Name: Maeve Jones RN Position: [facility] RN Member Role: Primary Care Nurse Care Team Related Persons Name: MEG MARTIN Address: home [address] [place] [address] Name: JAKE RODRIGUES Address: [place] [address]
--- OUTSIDE RECORDS SUMMARY | 2023-05-02 12:20 | XMS_ITS | Continuity of Care Document ---
Author Name Unknown Organization [facility] Address [address] [facility] [place] [address]- Care Team Providers Care Bottom Scrubber Name Role Phone Ruma Bravo MD Primary Care Physician Encounter [facility] Date(s): 03/11/23 - 03/18/23 [facility] [address] [place] [address]- Attending Physician: Tyrone Hamilton MD Admitting Physician: Tyrone Hamilton MD Referring Physician: Ruma Bravo MD Allergies, Adverse Reactions, Alerts Substance Reaction Severity Status atenolol Active codeine Active erythromycin Active penicillin Active caffeine Active ibuprofen Active aspirin Active doxycycline 1 Moderate Active tetracycline Active clindamycin Active amoxicillin Active sulfADIAZINE All sulfa drugs Active metoprolol Active predniSONE Allergy to sulfa drugs Activ e sulfa drugs Active shellfish Active Benadryl, Topical 2 Active Keflex Active Cefzil Active Tums Active Augmentin Active Levaquin Active Tylenol Active Adhesive Bandage rash Active Contrast Dye Active Horses Active Mold Active Nuts Active Cleocin T Active Fosamax Active Bactrim Active Biaxin XL Active Cats Active [place] Active Dogs Active Dust Active Latex rash [...] 1 Refills, Maintenance, 01/19/23 10:23:00 EDT, Tablet, [facility] #[id number], Partial fill upon patient request if the [...] Gm, 0 Refills, Maintenance, 12/17/22 11:48:00 EDT, [facility][id number], Partial fill upon patient request if the prescription is for a schedule II opioid drug., 152, cm,... Start Date: 12/17/22 Status: Ordered diclofenac 1% topical gel 1 application, Topically, 4 times a day, # 100 Gm, 0 Refills, Maintenance, 12/25/22 11:12:00 EDT, [facility] #99183, Partial fill upon patient request if the prescription is for a schedule II opioid drug., 152, cm, 12/25/22 10:26:00 EDT... Start Date: 12/25/22 Status: Ordered diphenhydrAMINE 50 mg oral tablet 1 tablet = 50 mg, By Mouth, Once, [address] scan, # 1 tablet, 2 Refills, Soft Stop, 10/15/22 14:04:00 EDT, [facility] #[id number], Partial fill upon patient request if the [...] 11/03/22 16:12:00 EDT, Route to Pharmacy Electronically, [facility] #68003, Partial fill upon patient request if the [...] 2 Refills, Maintenance, 09/08/22 10:06:00 EDT, Tablet, [facility] #[id number],... Start Date: 09/08/22 Status: Ordered lisinopril 5 mg oral tablet 5 mg, 1, tablet, By Mouth, Daily, # 90 tablet, Refills 1, Tot. Refills 1, Maintenance, 09/02/22 9:47:00 EDT, Route to Pharmacy Electronically, [facility] #[id number], 150, cm, 08/27/22 14:11:00 EDT, Height, 45.9, [...] oldest [Reference Range]: 1 Height 152 cm (03/11/23 9:23 AM) Pulse Rate [55-90 bpm] 109 bpm *H* (03/11/23 9:23 AM) Blood Pressure [90-138/55-84 mm Hg] 126/ 77mm Hg (03/11/23 9:23 AM) Blood pressure sites Arm, left (03/11/23 9:23 AM) Social History Social History Type Response Smoking Status Never (less than 100 in lifetime) entered on: 05/30/19 Sex Patient Care team information Care Team Personnel Name: Yin Hsu Position: [facility] Onco RN Member Role: Primary Care Nurse Name: Lawrence GERBER, Ruma Bauer Position: [facility] Physician - Primary Care Member Role: PCP Address: Address: [address] [place] [address] Family Medicine - [address] Name: Shikha Rivera RN Position: [facility] RN Member Role: Primary Care Nurse Name: Consuelo Louis RN Position: [facility] RN Member Role: Primary Care Nurse Name: Pretty GERBER, Cherry Gaines Position: [facility] VINEYARDIST MD Member Role: Lifetime VINEYARDIST Physician Address: Address: [address] [place] [address] Women's Health Anesthesia Attending - [address] Name: Maeve Jones RN Position: [facility] RN Member Role: Primary Care Nurse Care Team Related Persons Name: MEG MARTIN Address: home [address] [place] [address] Name: JAKE RODRIGUES Address: [place] [address]
--- OUTSIDE RECORDS SUMMARY | 2023-05-02 12:20 | XMS_ITS | Continuity of Care Document ---
Author Name Unknown Organization [facility] Address [address] [place] [address]- Care Team Providers Care Efficiency Expert Name Role Phone Yolanda Fischer MD Primary Care Physician Encounter [facility] Date(s): 07/13/20 - 08/12/20 [facility] [address] [place] [address]- Allergies, Adverse Reactions, Alerts Substance Reaction Severity [...] rash Active Cats Active Contrast Dye Active [place] Active Dogs Active Dust Active Horses Active [...] 3 capsule, 1 Refills, Maintenance, 04/17/20 10:01:00 [facility] #[id number], [place]... Start Date: 04/17/20 Status: Ordered Multivitamins [...] Active 1Dr Melo rheum 2Dr [place] manager payment multiple food and drug allergies 3[facility] 4colonoscopy 06/21/2019 removed 4 polyps. if positive for ca will need colon resection Social History Social History Type Response Smoking Status Never (less than 100 in lifetime) entered on: 05/30/19 Sex Female
--- OUTSIDE RECORDS SUMMARY | 2023-05-02 12:20 | XMS_ITS | Continuity of Care Document ---
Author Name Unknown Organization [facility] Address [address] [facility] [place] [address]- Care Team Providers Care Business Planner Name Role Phone Amado GERBER, Yolanda Lance Primary Care Physician Encounter 10/04/19 - 02/11/20 [facility] [address] [facility], [address] [place] [address]- [phone] Attending Physician: Yolanda Fischer MD Admitting Physician: Yolanda Fischer MD Referring Physician: Yolanda Fischer MD Allergies, Adverse Reactions, Alerts Substance Reaction Severity Status atenolol Active codeine Active ibuprofen Active tetracycline Active penicillin Active sulfADIAZINE All sulfa drugs Active metoprolol Active aspirin Active caffeine Active shellfish Active Benadryl, Topical Active Keflex Active Cleocin T Active Tums Active Levaquin Active Tylenol Active Bactrim Active Biaxin XL Active Adhesive Bandage rash Active erythromycin Active Cefzil Active Fosamax Active Cats Active Contrast Dye Active [place] Active Dogs Active Dust Active Horses Active Mold Active Nuts Active Soy Products Active fentaNYL Active Latex rash Active Pork Active Immunizations Given and Recorded [...] stasis(Confirmed) Active 1Dr Melo rheum 2Dr Soco pony ride attendant multiple food and drug allergies 3[facility] 4colonoscopy 06/21/2019 removed 4 polyps. if positive for ca will need colon resection Social History Social History Type Response Smoking Status Never (less than 100 in lifetime) entered on: 05/30/19 Sex Female
--- OUTSIDE RECORDS SUMMARY | 2023-05-02 12:20 | XMS_ITS | Continuity of Care Document ---
Author Name Unknown Organization [facility] Address [address] [address]- Care Team Providers Care Air Crew Supervisor Name Role Phone Rahat GERBER, Gaye Macias Primary Care Physician Encounter [facility] [place] Date(s): 12/30/21 - 01/29/22 [facility] [address] [address]- [place] Allergies, Adverse Reactions, Alerts Substance Reaction [...] Active Adhesive Bandage rash Active Cats Active [place] Active Contrast Dye Active Dogs Active Dust Active Latex rash Active 1Rash 2rash 3Pt States she tolerates [...] 01/22/22 15:19:00 EDT, Route to Pharmacy Electronically, [id number], Partialfill upon patient request if the prescription [...] Rahat GERBER, Gaye Macias Address: Address: [address] [place], [place] [address]
--- OUTSIDE RECORDS SUMMARY | 2023-05-02 12:20 | XMS_ITS | Continuity of Care Document ---
Author Name Unknown Organization [facility] Address [address] [address]- Care Team Providers Care Display Designer Name Role Phone Patti HARDEN, Shandra Lance Primary Care Physician [place] [facility] [place] 03/17/21 [facility] [address] [address]- [place] Allergies, Adverse Reactions, Alerts Substance Reaction [...] rash Active Cats Active Contrast Dye Active [place] Active Dogs Active Dust Active Horses Active [...] each, 2 Refills, Maintenance, 12/25/20 10:09:00 EDT, [facility] #[id number], Partial fill upon patient request if the [...] kit, 0 Refills, Maintenance, 01/14/21 12:14:00 EDT, [id number], Partial fill upon patient request if the [...] stasis(Confirmed) Active 1Dr Melo rheum 2Dr [place] orthopedic tech multiple food and drug allergies 3[facility] 4colonoscopy 06/21/2019 removed 4 polyps. if positive for ca will need colon resection 5Late April 2020 6Pt. had 2nd Pfizer vaccine on 09/19 and pain in her L hand on 10/07. Social History Social History Type Response Smoking Status Never (less than 100 in lifetime) entered on: 05/30/19 Sex
--- OUTSIDE RECORDS SUMMARY | 2023-05-02 12:20 | XMS_ITS | Continuity of Care Document ---
Author Name Unknown Organization [facility] Address [address] [place] [address]- Care Team Providers Care Buyer Intern Name Role Phone Yolanda Fischer MD Primary Care Physician Encounter [facility] [place] Date(s): 11/10/19 - 11/17/19 [facility] [address] [place] [address]- [facility] Attending Physician: Melva Rice DO Referring Physician: [...] rash Active Cats Active Contrast Dye Active [place] Active Dogs Active Dust Active Horses Active [...] stasis(Confirmed) Active 1Dr Melo rheum 2Dr Soco hat liner multiple food and drug allergies 3[facility] 4colonoscopy 06/21/2019 removed 4 polyps. if positive for ca will need colon resection Vital Signs Most recent to oldest [Reference Range]: 1 Height 149 cm (11/10/19 11:18 AM) Oxygen Saturation [94-100 %] 100 % (11/10/19 11:18 AM) Pulse Rate [55-90 bpm] 76 bpm (11/10/19 11:18 AM) Blood Pressure [90-138/55-84 mm Hg] 144/ 64mm Hg *H* (11/10/19 11:18 AM) Respiratory Rate [16-30 br/min] 16 br/mi n (11/10/19 11:18 AM) Temperature [96.8-100.4 DegF] 97.8 DegF (11/10/19 11:18 AM) Mode of Delivery (Oxygen) Room air (11/10/19 11:18 AM) Blood pressure sites Arm, right (11/10/19 11:18 AM) Temperature Route Temporal (11/10/19 11:18 AM) Social History Social History Type Response Smoking Status Never (less than 100 in lifetime) entered on: 05/30/19 Sex Female
--- OUTSIDE RECORDS SUMMARY | 2023-05-02 12:20 | XMS_ITS | Continuity of Care Document ---
Author Name Unknown Organization [facility] Address [address] [address]- Care Team Providers Care Video Engineer Name Role Phone Rahat GERBER, Gaye Macias Primary Care Physician ( [phone] [place] [facility] [place] 10[place]02/21 - 11/01/21 [facility] [address] [address]- [place] Allergies, Adverse Reactions, Alerts Substance Reaction [...] rash Active Cats Active Contrast Dye Active [place] Active Dogs Active Dust Active Horses Active [...]
--- OUTSIDE RECORDS SUMMARY | 2023-05-02 12:20 | XMS_ITS | Continuity of Care Document ---
Author Name Unknown Organization [facility] Address [address] [place] [address]- Care Team Providers Care Field Hockey Coach Name Role Phone Rahat GERBER, Gaye Macias Primary Care Physician En[place] [facility] [place] Date(s): 10/21/21 - 11/20/21 [facility] [address] [place] [address]- Allergies, Adverse Reactions, Alerts Substance Reaction Severity [...] rash Active Cats Active Contrast Dye Active [place] Active Dogs Active Dust Active Horses Active [...]
--- OUTSIDE RECORDS SUMMARY | 2023-05-02 12:20 | XMS_ITS | Continuity of Care Document ---
Author Name Unknown Organization [facility] Address [address] [place] [address]- Care Team Providers Care Equipment Sterilizer Name Role Phone Yolanda Fischer MD Primary Care Physician Encounter [facility] [place] Date(s): 10/02/20 - 10/09/20 [facility] [address] [place] [address]- Encounter Diagnosis Urinary frequency(Discharge Diagnosis) - 10/02/20 RLQ abdominal pain(Discharge Diagnosis) - 10/02/20 Attending Physician: Arun Galarza MDvt Allergies, Adverse Reactions, Alerts Substance Reaction Severity [...] rash Active Cats Active Contrast Dye Active [place] Active Dogs Active Dust Active Horses Active [...] 3 capsule, 1 Refills, Maintenance, 04/17/20 10:01:00 [facility] #[id number], [place]... Start Date: 04/17/20 Status: Ordered Multivitamins [...] stasis(Confirmed) Active 1Dr Melo rheum 2Dr Soco operations planner multiple food and drug allergies 3[facility] 4colonoscopy 06/21/2019 removed 4 polyps. if positive for ca will need colon resection Diagnosis Diagnosis Type Effective Dates Health Status Cl inical Service Informant Urinary frequency Discharge Diagnosis 10/02/20 RLQ abdominal pain Discharge Diagnosis 10/02/20 Vital Signs Most recent to oldest [Reference Range]: 1 Height 150.0 cm (10/02/20 12:35 PM) Social History Social History Type Response Smoking Status Never (less than 100 in lifetime) entered on: 05/30/19 Sex Female
--- OUTSIDE RECORDS SUMMARY | 2023-05-02 12:20 | XMS_ITS | Continuity of Care Document ---
Author Name Unknown Organization [facility] Address [address] [address]- Care Team Providers Care Supervisor Wet Pour Name Role Phone Patti HARDEN, Shandra Lance Primary Care Physician Encounter [facility] [place] Date(s): 04/17/21 - 05/17/21 [facility] [address] [address]- Attending Physician: Admsharonda, Logan8 Admitting Physician: Admtr, [...] Active Adhesive Bandage rash Active Cats Active [place] Active Contrast Dye Active Dogs Active Dust [...] each, 2 Refills, Maintenance, 12/25/20 10:09:00 EDT, [facility][id number], Partial fill upon patient request if the [...] stasis(Confirmed) Active 1Dr Melo rheum 2Dr Soco construction equipment overhauler multiple food and drug allergies 3[facility] 4colonoscopy 06/21/2019 removed 4 polyps. if positive for ca will need colon resection 5Late April 2020 6Pt. had 2nd Pfizer vaccine on 09/19 and pain in her L hand on 10/07. Social History Social History Type Response Smoking Status Never (less than 100 in lifetime) entered on: 05/30/19 Sex
--- OUTSIDE RECORDS SUMMARY | 2023-05-02 12:20 | XMS_ITS | Continuity of Care Document ---
Author Name Unknown Organization [facility] Address [address] [place] [address]- Care Team Providers Care Typo Machine Operator Name Role Phone Yolanda Fischer MD Primary Care Physician Encounter [facility] Date(s): 06/14/20 - 07/14/20 [facility] [address] [place] [address]- Allergies, Adverse Reactions, Alerts Substance Reaction Severity [...] Active Cats Active Contrast Dye Active [place] Active Dogs Active Dust Active Horses Active [...] 3 capsule, 1 Refills, Maintenance, 04/17/20 10:01:00 [facility] #[id number], [place]... Start Date: 04/17/20 Status: Ordered Multivitamins [...] stasis(Confirmed) Active 1Dr Melo rheum 2Dr Soco network design architect multiple food and drug allergies 3[facility] 4colonoscopy 06/21/2019 removed 4 polyps. if positive for ca will need colon resection Social History Social History Type Response Smoking Status Never (less than 100 in lifetime) entered on: 05/30/19 Sex Female
--- OUTSIDE RECORDS SUMMARY | 2023-05-02 12:20 | XMS_ITS | Continuity of Care Document ---
Author Name Unknown Organization [facility] Address [address] [place] [address]- Care Team Providers Care Gold Leaf Layer Name Role Phone Yolanda Fischer MD Primary Care Physician En[facility] Date(s): 11/22/19 - 12/22/19 [facility] [address] [place] [address] Allergies, Adverse Reactions, Alerts Substance Reaction Severity Status atenolol Active codeine Active ibuprofen Active tetracycline Active erythromycin Active penicillin Active sulfADIAZINE All sulfa drugs Active metoprolol Active aspirin Active shellfish Active Benadryl, Topical Active Keflex Active Fosamax Active Cefzil Active Tums Active Levaquin Active Tylenol Active Bactrim Active caffeine Active Cleocin T Active Biaxin XL Active Contrast Dye Active Dogs Active Dust Active Horses Active Latex rash Active Mold Active Nuts Active Pork Active Soy Products Active fentaNYL Active [place] Active Adhesive Bandage rash Active Cats Active Immunizations Given and Recorded [...] stasis(Confirmed) Active 1Dr Melo rheum 2Dr Soco marine extension agent multiple food and drug allergies 3[facility] 4colonoscopy 06/21/2019 removed 4 polyps. if positive for ca will need colon resection Social History Social History Type Response Smoking Status Never (less than 100 in lifetime) entered on: 05/30/19 Sex Female
--- OUTSIDE RECORDS SUMMARY | 2023-05-02 12:20 | XMS_ITS | Continuity of Care Document ---
Author Name Unknown Organization [facility] Address [address] [address]- Care Team Providers Care Fabric Worker Supervisor Name Role Phone Rahat GERBER, Gaye Macias Primary Care Physician [place] [facility] [id number] Date(s): 02/05/21 - 03/14/21 [facility] [address] [address]- Attending Physician: Savanah Charlton Admitting Physician: Savanah [...] rash Active Cats Active Contrast Dye Active [place] Active Dogs Active Dust Active Horses Active [...] each, 2 Refills, Maintenance, 12/25/20 10:09:00 EDT, [facility] #[id number], Partial fill upon patient request if the [...] kit, 0 Refills, Maintenance, 01/14/21 12:14:00 EDT, [facility] #[id number], Partial fill upon patient request if the [...] stasis(Confirmed) Active 1Dr Melo rheum 2Dr Soco draw furnace tender multiple food and drug allergies 3[facility] 4colonoscopy 06/21/2019 removed 4 polyps. if positive for ca will need colon resection 5Late April 2020 6Pt. had 2nd Pfizer vaccine on 09/19 and pain in her L hand on 10/07. Social History Social History Type Response Smoking Status Never (less than 100 in lifetime) entered on: 05/30/19 Sex
--- OUTSIDE RECORDS SUMMARY | 2023-05-02 12:20 | XMS_ITS | Continuity of Care Document ---
Author Name Unknown Organization [facility] Address [address] [place] [address]- Care Team Providers Care Facility Designer Name Role Phone Lawrence GERBER, Ruma Bauer Primary Care Physician [place] [facility] [place] 12/18/22 - 01/17/23 [facility] [address] [place] [address]- Allergies, Adverse Reactions, Alerts Substance Reaction Severity [...] rash Active Cats Active Contrast Dye Active [place] Active Dogs Active Dust Active Horses Active [...] 12/17/22 11:48:00 EDT, Route to Pharmacy Electronically, [id number], Partial fill upon patient request if the [...] Gm, 0 Refills, Maintenance, 12/17/22 11:48:00 EDT, [facility] #[id number], Partial fill upon patient request if the prescription is for a schedule II opioid drug., 152, cm,... Start Date: 12/17/22 Status: Ordered diclofenac 1% topical gel 1 application, Topically, 4 times a day, # 100 Gm, 0 Refills, Maintenance, 12/25/22 11:12:00 EDT, [facility] #[id number], Partial fill upon patient request if the prescription is for a schedule II opioid drug., 152, cm, 12/25/22 10:26:00 EDT... Start Date: 12/25/22 Status: Ordered diphenhydrAMINE 50 mg oral tablet 1 tablet = 50 mg, By Mouth, Once, [address] scan, # 1 tablet, 2 Refills, Soft Stop, 10/15/22 14:04:00 EDT, [facility] #[id number], Partial fill upon patient request if the [...] 11/03/22 16:12:00 EDT, Route to Pharmacy Electronically, [facility] #[id number], Partial fill upon patient request if the prescription is for a schedule II opi... Start Date: 11/03/22 Stop Date: 11/08/22 Status: Ordered gabapentin 100 mg oral capsule 100 mg, By Mouth, Daily at bedtime, # 30 capsule, Refills 0, Tot. Refills 0, Maintenance, 12/17/22 11:48:00 EDT, Route to Pharmacy Electronically, [facility] #[id number], Partial fill upon patient request if the [...] 2 Refills, Maintenance, 09/08/22 10:06:00 EDT, Tablet, [facility] #[id number],... Start Date: 09/08/22 Status: Ordered lisinopril 5 mg oral tablet 5 mg, 1, tablet, By Mouth, Daily, # 90 tablet, Refills 1, Tot. Refills 1, Maintenance, 09/02/22 9:47:00 EDT, Route to Pharmacy Electronically, [facility] #[id number], 150, cm, 08/27/22 14:11:00 EDT, Height, 45.9, [...] Care Team Personnel Name: Yin Hsu Position: [facility] Onco RN Member Role: Primary Care Nurse Name: Ruma Bravo MD Position: [facility] Physician - Primary Care Member Role: PCP Address: Address: [address] [place] [address] Name: Shikha Rivera RN Position: [facility] RN Member Role: Primary Care Nurse Name: Cherry Olsen MD Position: [facility] CROP SETTING OUT MACHINE OPERATOR MD Member Role: Lifetime CROP SETTING OUT MACHINE OPERATOR Physician Address: Address: [address] [place] [address] Women's Health Geotechnical Laboratory [place] [address]- Name: Maeve Jones RN Position: [facility] RN Member Role: Primary Care Nurse Care Team Related Persons Name: MEG MARTIN Address: home [address] [place] [address] Name: JAKE RODRIGUES Address: [place] [address]
--- OUTSIDE RECORDS SUMMARY | 2023-05-02 12:20 | XMS_ITS | Continuity of Care Document ---
Author Name Unknown Organization [facility] Address [address] [address]- Care Team Providers Care Gifts Officer Name Role Phone Yolanda Fischer MD Primary Care Physician Encounter [place] Date(s): 02/23/20 - 04/20/20 [facility] [address] [address]- Attending Physician: Angel Ivey MD Admitting Physician: [...] Active Adhesive Bandage rash Active Cats Active [place] Active Contrast Dye Active Immunizations Given and Recorded Vaccine Date [...] 3 capsule, 1 Refills, Maintenance, 04/17/20 10:01:00 [id number], [place]... Start Date: 04/17/20 Status: Ordered Multivitamins [...] Active 1Dr Melo rheum 2Dr Soco radio sportscaster multiple food and drug allergies 3[facility] 4colonoscopy 06/21/2019 removed 4 polyps. if positive for ca will need colon resection Social History Social History Type Response Smoking Status Never (less than 100 in lifetime) entered on: 05/30/19 Sex Female
--- OUTSIDE RECORDS SUMMARY | 2023-05-02 12:20 | XMS_ITS | Continuity of Care Document ---
Author Name Unknown Organization [facility] Address [address] [facility] [place] [address]- Care Team Providers Care Analytical Lab Analyst Name Role Phone Rahat GERBER, Gaye Macias Primary Care Physician Encounter 10/07/21 - 11/15/21 [facility] [address], [address] [place] [address]- Attending Physician: Yolanda Fischer MD Admitting Physician: [...] rash Active Cats Active Contrast Dye Active [place] Active Dogs Active Dust Active Horses Active [...]
--- OUTSIDE RECORDS SUMMARY | 2023-05-02 12:21 | XMS_ITS | Continuity of Care Document ---
Author Name Unknown Organization [facility] Address [address] [address]- Care Team Providers Care Donation Worker Name Role Phone Ruma Bravo MD Primary Care Physician Encounter [facility] [place] Date(s): 03/20/23 - 04/19/23 [facility] [address] [address]- Attending Physician: Will Wilson Admitting Physician: Admtr, [...] rash Active Cats Active Contrast Dye Active [place] Active Dogs Active Dust Active Horses Active [...] 1 Refills, Maintenance, 01/19/23 10:23:00 EDT, Tablet, [facility] #[id number], Partial fill upon patient request if the [...] Gm, 0 Refills, Maintenance, 12/17/22 11:48:00 EDT, [facility][id number], Partial fill upon patient request if the prescription is for a schedule II opioid drug., 152, cm,... Start Date: 12/17/22 Status: Ordered diclofenac 1% topical gel 1 application, Topically, 4 times a day, # 100 Gm, 0 Refills, Maintenance, 12/25/22 11:12:00 EDT, [facility] #[id number], Partial fill upon patient request if the prescription is for a schedule II opioid drug., 152, cm, 12/25/22 10:26:00 EDT... Start Date: 12/25/22 Status: Ordered diphenhydrAMINE 50 mg oral tablet 1 tablet = 50 mg, By Mouth, Once, [address] scan, # 1 tablet, 2 Refills, Soft Stop, 10/15/22 14:04:00 EDT, [facility] #[id number], Partial fill upon patient request if the [...] 11/03/22 16:12:00 EDT, Route to Pharmacy Electronically, [id number], Partial fill upon patient request if the [...] 3 Refills, Maintenance, 03/24/23 9:43:00 EST, Tablet, [facility] #[id number],... Start Date: 03/24/23 Status: Ordered lisinopril 5 mg oral tablet 5 mg, 1, tablet, By Mouth, Daily, # 90 tablet, Refills 1, Tot. Refills 1, Maintenance, 09/02/22 9:47:00 EDT, Route to Pharmacy Electronically, [facility] #[id number], 150, cm, 08/27/22 14:11:00 EDT, Height, 45.9, [...] Personnel Name: Yin Hsu Position: [facility] Onco RN Member Role: Primary Care Nurse Name: Ruma Bravo MD Position: [facility] Physician - Primary Care Member Role: PCP Address: Address: [address] [place] [address] [place] [address]- Name: Shkiha Rivera RN Position: [facility] RN Member Role: Primary Care Nurse Name: Consuelo Louis RN Position: [facility] RN Member Role: Primary Care Nurse Name: Cherry Olsen MD Position: [facility] BOTTLE HOUSE CLEANERS SUPERVISOR MD Member Role: Lifetime BOTTLE HOUSE CLEANERS SUPERVISOR Physician Address: Address: [address] [facility] Women's Health [place] [address]- Name: Maeve Jones RN Position: [facility] RN Member Role: Primary Care Nurse Care Team Related Persons Name: MEG MARTIN Address: home [address] [place] [address] Name: JAKE RODRIGUES Address: [place] [address]
--- OUTSIDE RECORDS SUMMARY | 2023-05-02 12:21 | XMS_ITS | Continuity of Care Document ---
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 if positive for ca will need colon resection Social History Social History Type Response Smoking Status Never (less than 100 in lifetime) entered on: 05/30/19 Sex Female
--- OUTSIDE RECORDS SUMMARY | 2023-05-02 12:21 | XMS_ITS | Continuity of Care Document ---
Author Name Unknown Organization [facility] Address [address] [place] [address]- Care Team Providers Care Filament Tester Name Role Phone Shandra Armstrong NP Primary Care Physician Encounter [facility] [place] Date(s): 04/11/21 - 04/18/21 [facility] [address] [place] [address]- Encounter Diagnosis Arthritis of carpometacarpal (CMC) joint of left thumb(Discharge Diagnosis) - 04/11/21 Anxiety(Discharge Diagnosis) - 04/11/21 Cellulitis(Discharge Diagnosis) - 04/11/21 LBBB - Left bundle branch block(Discharge Diagnosis) - 04/11/21 Left ankle injury(Discharge Diagnosis) - 04/11/21 Hand swelling(Discharge Diagnosis) - 04/11/21 Attending Physician: Shandra Armstrong NP Allergies, Adverse Reactions, [...] rash Active Cats Active Contrast Dye Active [place] Active Dogs Active Dust Active Horses Active [...] each, 2 Refills, Maintenance, 12/25/20 10:09:00 EDT, [facility] #[id number], Partial fill upon patient request if the [...] stasis(Confirmed) Active 1Dr Melo rheum 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 if positive for ca will need colon resection 5Late April 2020 6Pt. had 2nd Pfizer vaccine on 09/19 and pain in her L hand on 10/07. Diagnosis Diagnosis Type Effective Dates Health Status Clinical Service Informant Left ankle injury Discharge Diagnosis 04/11/21 Hand swelling Discharge Diagnosis 04/11/21 LBBB - Left bundle branch block Discharge Diagnosis 04/11/21 Cellulitis Discharge Diagnosis 04/11/21 Arthritis of carpometacarpal (CMC) joint of left thumb Discharge Diagnosis 04/11/21 Anxiety Discharge Diagnosis 04/11/21 Vital Signs Most recent to oldest [Reference Range]: 1 2 Height 150 cm (04/11/21 9:44 AM) 150 cm (04/11/21 9:38 AM) Weight 53.18 kg (04/11/21 9:38 AM) Oxygen Saturation [94-100 %] 96 % (04/11/21 9:38 AM) Pulse Rate [55-90 bpm] 98 bpm *H* (04/11/21 9:38 AM) Body Mass Index [18.5-24.99] 23.64 (04/11/21 9:38 AM) Blood Pressure [90-138/55-84 mm Hg] 140/ 82mm Hg *H* (04/11/21 9:44 AM) 147/73mm Hg *H* (04/11/21 9:38 AM) Respiratory Rate [16-30 br/min] 18 br/mi n (04/11/21 9:38 AM) Blood pressure sites Arm, left (04/11/21 9:44 AM) Arm, left (04/11/21 9:38 AM) Weight Obtained Via Standing scale (04/11/21 9:38 AM) Social History Social History Type Response Smoking Status Never (less than 100 in lifetime) entered on: 05/30/19 Sex
--- OUTSIDE RECORDS SUMMARY | 2023-05-02 12:21 | XMS_ITS | Continuity of Care Document ---
Author Name Unknown Organization [facility] Address [address] [place] [address]- Care Team Providers Care Diving Supervisor Name Role Phone Rahat GERBER, Gaye Macias Primary Care Physician Encounter [facility] Date(s): 05/08/22 - 05/15/22 [facility] [address] [place] [address]- Encounter Diagnosis Cellulitis of right ankle(Discharge Diagnosis) - 05/08/22 Venous stasis(Discharge Diagnosis) - 05/08/22 Attending Physician: Ruma Bravo MD Allergies, Adverse Reactions, Alerts Substance Reaction Severity Status atenolol Active codeine Active ibuprofen Active doxycycline 1 Moderate Active tetracycline Active penicillin Active sulfADIAZINE All sulfa drugs Active aspirin Active caffeine Active shellfish Active Keflex Active Cleocin T Active clindamycin Active erythromycin Active metoprolol Active Benadryl, Topical 2 Active Fosamax Active Cefzil Active Tums Active Levaquin Active Tylenol Active Cats Active Contrast Dye Active [place] Active Horses Active Mold Active Nuts Active Other Food Allergy chicken broccoli other veggetables tomatoes onions cucumbers lettuce peas carrots wheat rash hives itchy Active Soy Products Active fentaNYL Active Latex rash Active Bactrim Active Biaxin XL Active Adhesive Bandage rash Active Dogs Active Dust Active 1Rash 2Pt States she tolerates Benadryl by mouth fine 11/06/20 Immunizations Given and Recorded Vaccine Date Status Refusal Reason SARS-CoV-2 (COVID-19) mRNA BNT-162b2 vac 08/29/20 Recorded tetanus-diphtheria toxoids (Td) 1 07/06/19 Given tetanus/diphtheria/pertussis, acel(Tdap) 2 01/25/10 Given 1Result Comment: wrong chart 2Admin Note: vis given 11-18-2008 Medications linezolid 600 mg oral tablet 0 Refills, Maintenance, 05/08/22 15:14:00 EST, Partial fill upon patient request if the prescription is for a schedule II opioid drug. Start Date: 05/08/22 Status: Ordered lisinopril 5 mg oral tablet 5 mg, 1, tablet, By Mouth, Daily, new start 01/22/22, # 30 tablet, Refills 2, Tot. Refills 2, Maintenance, 01/22/22 15:19:00 EDT, Route to Pharmacy Electronically, [id number], Partialfill upon patient request if the prescription is fo... Start Date: 01/22/22 Stop Date: 04/22/22 Status: Ordered metroNIDAZOLE 500 mg oral tablet 1 tablet = 500 mg, By Mouth, 3 times a day, # 15 tablet, 0 Refills, Maintenance, 02/27/22 16:27:00 EDT, Tablet, [facility] #[id number], Partial fill upon patient request if the [...] Informant Cellulitis of right ankle Discharge Diagnosis 05/08/22 Venous stasis Discharge Diagnosis 05/08/22 Vital Signs Most recent to oldest [Reference Range]: 1 Height 150 cm (05/08/22 3:12 PM) Weight 47.5 kg (05/08/22 3:12 PM) Oxygen Saturation [94-100 %] 99 % (05/08/22 3:12 PM) Pulse Rate [55-90 bpm] 98 bpm *H* (05/08/22 3:12 PM) Body Mass Index [18.5-24.99 kg/m2] 21.11 kg/m2 (05/08/22 3:12 PM) Blood Pressure [90-138/55-84 mm Hg] 117/ 77mm Hg (05/08/22 3:12 PM) Blood pressure sites Arm, right (05/08/22 3:12 PM) Social History Social History Type Response Smoking Status Never (less than 100 in lifetime) entered on: 05/30/19 Sex Note * Dhara Troncoso: PERFORM, SIGN, VERIFY Event Display: Patient Education/Instruction Authored Date: [id number] [facility] *[facility] Clinical Summary Name NAUN MARTIN Age 77 Years 1945 PCP Rahat GERBER, Gaye Macias PCP Visit Date 05/08/2022 15:08:00 Additional Instructions: Scheduled Appointments?? Future Appointments ?*[facility] ?[address]??[place],??[place],??[address] ?Phone:??--?Fax:??-- ?Appt. Date:??07/14/2022?9:30 AM ?Scheduled Provider:??Savanah Charlton Follow-Up Instructions ?? Diagnosis Medications: Please continue your medications until treatment is completed or stopped by your provider. Discuss any questions related to medications with your provider. Medications to Continue with No Changes These medications were not printed or sent to your pharmacy Linezolid (linezolid 600 mg oral tablet) Next [...] Allergy; Nuts; Mold; Latex; Horses; Dust; Dogs; [place]; Contrast Dye; Cats; Adhesive Bandage; Biaxin XL; Bactrim; Tylenol; Levaquin; Tums; Cefzil; Fosamax; Cleocin T; Keflex; Benadryl, Topical; shellfish; caffeine; aspirin; metoprolol; sulfADIAZINE; penicillin; erythromycin; clindamycin; tetracycline; doxycycline; ibuprofen; codeine; atenolol Medications Given This Visit Future Orders ?No future orders Vital Signs Height 150 cm Weight 47.5 kg BMI 21.11 kg/m2 Blood Pressure 117 mm Hg/77 mm Hg Temperature Pulse Rate 98 bpm Respiratory Rate 02 Sat Mode of Delivery 99 %/ You can now view a summary of your hospital visit from the comfort of your home through a free online portal called Great[employer]. Greats is a website that allows you to securely view your medical information including discharge summary, medications and follow-up visits. ??You can alsosend a secure electronic message to your doctor???s office to request appointments, renew medications or just ask a question. You can enroll at [email or web address] or register during your next office [...] primary care provider, you may find a [facility] provider by calling [facility] [employer] at [phone]. For information about the plan of care [...] Care Team Personnel Name: Yin Hsu Position: [facility] Onco RN Member Role: Primary Care Nurse Name: Gaye Giang MD Position: [facility] Primary Care Physician Member Role: PCP Address: Address: [address] [place] [address] Family Medicine [address] Name: Consuelo Louis RN Position: [facility] RN Member Role: Primary Care Nurse Name: Cherry Olsen MD Position: [facility] CONCRETE WORKER MD Member Role: Lifetime CONCRETE WORKER Physician Address: Address: [address] [place] [address] Women's Health Cosmetic Sales Consultant - [address] Name: Maeve Jones RN Position: [facility] RN Member Role: Primary Care Nurse Care Team Related Persons Name: MEG MARTIN Address: [address] [address] Name: JAKE RODRIGUES Address: [place] [address]
--- OUTSIDE RECORDS SUMMARY | 2023-05-02 12:21 | XMS_ITS | Continuity of Care Document ---
Author Name Unknown Organization [facility] Address [address] [place] [address]- Care Team Providers Care Book Trimmer Name Role Phone Yolanda Fischer MD Primary Care Physician Encounter [facility] Date(s): 08/17/19 - 08/24/19 [facility] [address] [place] [address]- [place] Encounter Diagnosis Fibromyalgia(Discharge Diagnosis) - 08/17/19 Suspected COVID-19 virus infection(Discharge Diagnosis) - 08/17/19 Attending Physician: Yolanda Fischer MD Allergies, Adverse [...] Active Adhesive Bandage rash Active Cats Active [place] Active Dogs Active Dust Active Horses Active [...] bleeding(Confirmed) Active 1Dr Melo rheum 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 if positive for ca will need colon resection Diagnosis Diagnosis Type Effective Dates Health Status Clinical Service Informant Fibromyalgia Discharge Diagnosis 08/17/19 Suspected COVID-19 virus infection Discharge Diagnosis 08/17/19 Social History Social History Type Response Smoking Status Never (less than 100 in lifetime) entered on: 05/30/19 Sex
--- OUTSIDE RECORDS SUMMARY | 2023-05-02 12:21 | XMS_ITS | Continuity of Care Document ---
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 if positive for ca will need colon resection Social History Social History Type Response Smoking Status Never (less than 100 in lifetime) entered on: 05/30/19 Sex Female
--- OUTSIDE RECORDS SUMMARY | 2023-05-02 12:21 | XMS_ITS | Continuity of Care Document ---
Author Name Unknown Organization [facility] Address [address] [place] [address]- Care Team Providers Care Otolaryngology Surgeon Name Role Phone Lawrence GERBER, Ruma Bauer Primary Care Physician Encounter [facility] Date(s): 10/31/22 - 11/30/22 [facility] [address] [place] [address]- Allergies, Adverse Reactions, Alerts Substance Reaction Severity [...] rash Active Cats Active Contrast Dye Active [place] Active Dogs Active Dust Active Horses Active Mold Active Nuts Active Other Food Allergy chicken broccoli other veggetables tomatoes onions cucumbers lettuce peas carrots wheat rash hives itchy Active Soy Products Active fentaNYL Active Latex rash Active 1Rash 2Pt States [...] 2 Refills, Soft Stop, 10/15/22 14:04:00 EDT, [facility][id number], Partial fill upon patient request if the [...] 11/03/22 16:12:00 EDT, Route to Pharmacy Electronically, [facility] #[id number], Partial fill upon patient request if the [...] 2 Refills, Maintenance, 09/08/22 10:06:00 EDT, Tablet, [facility] #[id number],... Start Date: 09/08/22 Status: Ordered lisinopril 5 mg oral tablet 5 mg, 1, tablet, By Mouth, Daily, # 90 tablet, Refills 1, Tot. Refills 1, Maintenance, 09/02/22 9:47:00 EDT, Route to Pharmacy Electronically, [facility] #[id number], 150, cm, 08/27/22 14:11:00 EDT, Height, 45.9, [...] Refills, Soft Stop, 11/03/22 16:11:00 EDT, Tablet, [facility][id number], Partial fill upon patient request if the [...] Team Personnel Name: Shadi , Yin Position: [facility] Onco RN Member Role: Primary Care Nurse Name: Ruma Bravo MD Position: [facility] Physician - Primary Care Member Role: PCP Address: Address: [address] [place] [address] Family Medicine [address] Name: Pretty GERBER, Cherry Gaines Position: [facility] EDITOR SCHOOL PHOTOGRAPH MD Member Role: Lifetime EDITOR SCHOOL PHOTOGRAPH Physician Address: Address: [address] [place] [address] Women's Health Signal Wirer [address] Name: Maeve Jones RN Position: [facility] RN Member Role: Primary Care Nurse Care Team Related Persons Name: MGE MARTIN Address: home [address] [place] [address] Name: JAKE RODRIGUES Address: [place] [address]
--- OUTSIDE RECORDS SUMMARY | 2023-05-02 12:21 | XMS_ITS | Continuity of Care Document ---
Author Name Unknown Organization [facility] Address [address] [place] [address]- Care Team Providers Care Engraver Hand Soft Metals Name Role Phone Rahat GERBER, Gaye Macias Primary Care Physician En[place] [facility] Date(s): 11/15/21 - 12/15/21 [facility] [address] [place] [address]- Allergies, Adverse Reactions, Alerts Substance Reaction Severity [...] rash Active Cats Active Contrast Dye Active [place] Active Dogs Active Dust Active Horses Active [...]
--- OUTSIDE RECORDS SUMMARY | 2023-05-02 12:21 | XMS_ITS | Continuity of Care Document ---
Author Name Unknown Organization [facility] Address [address] [place] [address]- Care Team Providers Care Bone Tender Name Role Phone Amado GERBER, Yolanda Lance Primary Care Physician [place] [facility] Date(s[place] 10/08/20 - 11/09/[address] [address]- Attending Physician: Rachell Crandall MD Allergies, Adverse Reactions, Alerts Substance Reaction Severity Status atenolol Active codeine Active ibuprofen Active doxycycline 1 Moderate Active clindamycin Active penicillin Active aspirin Active Benadryl, Topical 2 Active Keflex Active Cleocin T Active tetracycline Active erythromycin Active shellfish Active sulfADIAZINE All sulfa drugs Active vancomycin 3 rash Persistent Mild Active metoprolol Active caffeine Active Fosamax Active Cefzil Active Tums Active Levaquin Active Tylenol Active Contrast Dye Active Horses Active Mold Active Nuts Active Soy Products Active fentaNYL Active Latex rash Active Bactrim Active Biaxin XL Active Adhesive Bandage rash Active Cats Active [place] Active Dogs Active Dust Active Pork Active [...] 11/16/20 7:37:00 EDT, 11/06/20 7:37:00 EDT, Tablet, [facility], Partial fill upon patient [...] stasis(Confirmed) Active 1Dr Melo rheum 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 if positive for ca will need colon resection Social History Social History Type Response Smoking Status Never (less than 100 in lifetime) entered on: 05/30/19 Sex
--- OUTSIDE RECORDS SUMMARY | 2023-05-02 12:21 | XMS_ITS | Continuity of Care Document ---
Author Name Unknown Organization [facility] Address [address] [place] [address]- Care Team Providers Care Scutcher Tender Name Role Phone Ruma Bravo MD Primary Care Physician En[place] [facility] Date(s): 12/25/22 - 01/01/23 [facility] [address] [place] [address]- Encounter Diagnosis Fibromyalgia(Discharge Diagnosis) - 12/25/22 Cough(Discharge Diagnosis) - 12/25/22 Change in bowel habits(Discharge Diagnosis) - 12/25/22 Nonadherence to medication(Discharge Diagnosis) - 12/25/22 Anxiety(Discharge Diagnosis) - 12/25/22 Acute neck pain(Discharge Diagnosis) - 12/25/22 Attending Physician: Ruma Bravo MD Allergies, Adverse [...] Active Adhesive Bandage rash Active Cats Active [place] Active Contrast Dye Active Dogs Active Dust [...] 12/17/22 11:48:00 EDT, Route to Pharmacy Electronically, [facility] #[id number], Partial fill upon patient request if the [...] 0 Refills, Maintenance, 12/17/22 11:48:00 EDT, Gel, [facility] #[id number], Partial fill upon patient request if the prescription is for a schedule II opioid drug., 152, cm,... Start Date: 12/17/22 Status: Ordered diclofenac 1% topical gel 1 application, Topically, 4 times a day, # 100 Gm, 0 Refills, Maintenance, 12/25/22 11:12:00 EDT, Gel, [facility] #[id number], Partial fill upon patient request if the prescription is for a schedule II opioid drug., 152, cm, 12/25/22 10:26:00 EDT... Start Date: 12/25/22 Status: Ordered diphenhydrAMINE 50 mg oral tablet 1 tablet = 50 mg, By Mouth, Once, [address] scan, # 1 tablet, 2 Refills, Soft Stop, 10/15/22 14:04:00 EDT, [facility] #[id number], Partial fill upon patient request if the [...] 11/03/22 16:12:00 EDT, Route to Pharmacy Electronically, [facility] #[id number], Partial fill upon patient request if the prescription is for a schedule II opi... Start Date: 11/03/22 Stop Date: 11/08/22 Status: Ordered gabapentin 100 mg oral capsule 100 mg, By Mouth, Daily at bedtime, # 30 capsule, Refills 0, Tot. Refills 0, Maintenance, 12/17/22 11:48:00 EDT, Route to Pharmacy Electronically, [facility] #[id number], Partial fill upon patient request if the [...] 2 Refills, Maintenance, 09/08/22 10:06:00 EDT, Tablet, [facility] #[id number],... Start Date: 09/08/22 Status: Ordered lisinopril 5 mg oral tablet 5 mg, 1, tablet, By Mouth, Daily, # 90 tablet, Refills 1, Tot. Refills 1, Maintenance, 09/02/22 9:47:00 EDT, Route to Pharmacy Electronically, [facility] #[id number], 150, cm, 08/27/22 14:11:00 EDT, Height, 45.9, [...] Effective Dates Health Status Clinical Service Informant Nonadherence to medication Discharge Diagnosis 12/25/22 Anxiety Discharge Diagnosis 12/25/22 Acute neck pain Discharge Diagnosis 12/25/22 Fibromyalgia Discharge Diagnosis 12/25/22 Cough Discharge Diagnosis 12/25/22 Change in bowel habits Discharge Diagnosis 12/25/22 Vital Signs Most recent to oldest [Reference Range]: 1 Height 152 cm (12/25/22 10:26 AM) Weight 47.4 kg (12/25/22 10:26 AM) Oxygen Saturation [94-100 %] 99 % (12/25/22 10:26 AM) Pulse Rate [55-90 bpm] 104 bpm *H* (12/25/22 10:26 AM) Body Mass Index [18.5-24.99 kg/m2] 20.52 kg/m2 (12/25/22 10:26 AM) Blood Pressure [90-138/55-84 mm Hg] 124/ 84mm Hg (12/25/22 10:26 AM) Mode of Delivery (Oxygen) Room air (12/25/22 10:26 AM) Blood pressure sites Arm, right (12/25/22 10:26 AM) Weight Obtained Via Standing scale (12/25/22 10:26 AM) Social History Social History Type Response Smoking Status Never (less than 100 in lifetime) entered on: 05/30/19 Sex Note * Lashaun Lang: PERFORM, SIGN, VERIFY Event Display: Patient Education/Instruction Authored Date: [id number] [facility] *[facility] Clinical Summary Name NAUN MARTIN Age 77 Years 1945 PCP Lawrence GERBER, Ruma Bauer PCP Visit Date 12/25/2022 10:07:00 Patient Instructions Please stay on the gabapentin at bedtime. Take a whole capsule. If this does not make you too sleepy, please try going up to 1 capsule in the morning and 1 at night. Please take AT LEAST half a pill of baclofen 3 times per day. if needed you could take a whole pill I suspect some of the pain (and some of the stomach symptoms) are from stopping the morphine abruptly after your hospital stay. It is OK to stay off morphine; pain should gradually improve. If you can obtain some diclofenac gel to use topically, this may help with the pain also. I have sent in for a cough suppressant pill (benzonatate) to help with the cough since the cough isprobably making your neck pain. Additional Instructions: Scheduled Appointments?? Future Appointments ?[facility] ?[address]??[place],??[place],??[address] ?Phone:??[phone]?Fax:??-- ?Appt. Date:??01/21/2023?9:30 AM ?Scheduled Provider:??[facility] ?*[facility] ?Phone:??--?Fax:??-- ?Appt. Date:??03/24/2023?9:30 AM ?Scheduled Provider:??Francisca GERBER, Laury Jane Follow-Up Instructions ?? Diagnosis Medications: Please continue your medications until treatment is completed or stopped by your provider. Discuss any questions related to medications with your provider. New Medications [id number], [address] [place] [phone], [phone] Benzonatate (benzonatate 100 mg oral capsule) 1 capsule Oral 3 times a day as needed Cough for 7 Days. Refills: 0. Next Dose: Medications to Continue Taking That Have Changed [facility] #[id number], [address] [place] [address] [phone], [phone] - Diclofenac Topical (diclofenac 1% topical gel) 1 leo Topically 4 times a day. Refills: 0. Next Dose: These medications were not printed or sent to your pharmacy - Diclofenac Topical (diclofenac 1% topical gel) 1 leo Topically 4 times a day as needed Pain , Moderate. Refills: 0. Next Dose: Medications to Continue with No Changes These medications were not printed or sent to your pharmacy Baclofen (baclofen 10 mg oral tablet) 5 Milligram Oral 3 times a day for 30 Days. Refills: 0. Next Dose: Barium Sulfate (Readi-Cat 2 oral suspension) Dispense Two 450mL bottles. Take as instructed.. Refills: 0. Next Dose: DiphenhydrAMINE (diphenhydrAMINE 50 mg oral tablet) 1 tab(s) Oral once. [address] scan. Refills: 2. Next Dose: Durable Medical Equipment (Cane) Dx foot pain. Refills: 0. Next Dose: EPINEPHrine (EpiPen 2-Jerman) 0.3 Milligram Intramuscular once. Next Dose: Famotidine (famotidine 20 mg oral tablet) 1 tab(s) Oral Daily for 5 Days. Refills: 0. Next Dose: Gabapentin (gabapentin 100 mg oral capsule) 100 Milligram Oral Daily at Bedtime for 30 Days. Refills: 0. Next Dose: Ibandronate (ibandronate [...] Allergy; Nuts; Mold; Latex; Horses; Dust; Dogs; [place]; Contrast Dye; Cats; Adhesive Bandage; Biaxin XL; Bactrim; Tylenol; Levaquin; Augmentin; Tums; Cefzil; Fosamax; Cleocin T; Keflex; Benadryl, Topical; shellfish; sulfa drugs; caffeine; predniSONE;aspirin; metoprolol; sulfADIAZINE; penicillin; amoxicillin; erythromycin; clindamycin; tetracycline; doxycycline; ibuprofen; codeine; atenolol Medications Given This Visit Future Orders ?No future orders Vital Signs Height 152 cm Weight 47.4 kg BMI 20.52 kg/m2 Blood Pressure 124 mm Hg/84 mm Hg Temperature Pulse Rate 104 bpm Respiratory Rate 02 Sat Mode of Delivery 99 %/Room air You can now view a summary of your hospital visit from the comfort of your home through a free online portal called [employer]. [employer] is a website that allows you to securely view your medical information including discharge summary, medications and follow-up visits. ??You can alsosend a secure electronic message to your doctor???s office to request appointments, renew medications or just ask a question. You can enroll at [email or web address] or register during your next office [...] primary care provider, you may find a [facility] provider by calling [facility] [employer] at [phone]. For information about the plan of care [...] Care Team Personnel Name: Yin Hsu Position: [facility] Onco RN Member Role: Primary Care Nurse Name: Ruma Bravo MD Position: [facility] Physician - Primary Care Member Role: PCP Address: Address: [address] [place] [address] Family Medicine [address] Name: Shikha Rivera RN Position: [facility] RN Member Role: Primary Care Nurse Name: Cherry Olsen MD Position: [facility] HEALTH CARE RECRUITER MD Member Role: Lifetime HEALTH CARE RECRUITER Physician Address: Address: [address] [place] [address] Women's Health Customer Resolution Specialist - [place], [place] [address] Name: Maeve Jones RN Position: [facility] RN Member Role: Primary Care Nurse Care Team Related Persons Name: MEG MARTIN Address: [address] [address] Name: JAKE RODRIGUES Address: [place] [address]
--- OUTSIDE RECORDS SUMMARY | 2023-05-02 12:21 | XMS_ITS | Continuity of Care Document ---
Author Name Unknown Organization [facility] Address [address] [address]- Care Team Providers Care Information Clerk [employer]obile Club Name Role Phone Patti HARDEN, Shandra Lance Primary Care Physician [place] [id number] Date(s): 04/09/21 - 04/16/21 [facility] [address] [address]- Attending Physician: Savanah Charlton Admitting Physician: Savanah Charlton Referring Physician: Savanah Charlton Allergies, Adverse Reactions, Alerts Substance Reaction Severity Status atenolol Active codeine Active ibuprofen Active doxycycline 1 Moderate Active erythromycin Active penicillin Active sulfADIAZINE All sulfa drugs Active vancomycin 2 rash Persistent Mild Active metoprolol Active aspirin Active caffeine Active Benadryl, Topical 3 Active Keflex Active Cleocin T Active Fosamax Active Cefzil Active Tums Active tetracycline Active clindamycin Active shellfish Active Levaquin Active Tylenol Active Bactrim Active Biaxin XL Active Adhesive Bandage rash Active Cats Active Contrast Dye Active [place] Active Dogs Active Dust Active Horses Active [...] each, 2 Refills, Maintenance, 12/25/20 10:09:00 EDT, [facility][id number], Partial fill upon patient request if the prescription is for a schedule II opioid drug., 150, cm, 12/25/20 9:32:00 EDT, H... Start Date: 12/25/20 Status: Ordered linezolid 600 mg oral tablet 1 tablet = 600 mg, By Mouth, Every 12 hours, for 7 days, # 14 tablet, 0 Refills, Acute 04/18/21 10:16:00 EST, 04/11/21 10:16:00 EST, Tablet, [facility][id number], Partial fill upon patient request if the [...] stasis(Confirmed) Active 1Dr Melo rheum 2Dr Soco rotary operator multiple food and drug allergies 3[facility] [...]
--- OUTSIDE RECORDS SUMMARY | 2023-05-02 12:21 | XMS_ITS | Continuity of Care Document ---
Author Name Unknown Organization [facility] Address [address] [place] [address]- Care Team Providers Care Can Repairer Name Role Phone Rahat GERBER, Gaye Macias Primary Care Physician Encounter [facility] Date(s): 07/07/22 - 08/06/22 [facility] Diabetes [address] [place] [address]- Allergies, Adverse Reactions, Alerts Substance Reaction Severity [...] rash Active Cats Active Contrast Dye Active [place] Active Dogs Active Dust Active Horses [...] Instructions Replace Required Details, Route to PharmacyElectronically, [facility][id number], 150, c... Start Date: 06/24/22 Status: Ordered lisinopril 5 mg oral tablet 5 mg, 1, tablet, By Mouth, Daily, new start 01/22/22, # 30 tablet, Refills 2, Tot. Refills 2, Maintenance, 01/22/22 15:19:00 EDT, Route to Pharmacy Electronically, [facility][id number], Partialfill upon patient request if the prescription [...] Personnel Name: Yin Hsu Position: [facility] Onco RN Member Role: Primary Care Nurse Name: Rahat GERBER, Gaye Macias Position: [facility] Primary Care Physician Member Role: PCP Address: Address: [address] [place] [address] Family Medicine [address] Name: Consuelo Louis RN Position: [facility] RN Member Role: Primary Care Nurse Name: Cherry Olsen MD Position: [facility] PUBLIC SPEAKING COACH MD Member Role: Lifetime PUBLIC SPEAKING COACH Physician Address: Address: [address] [place] [address] Women's Health Chef & Owner - [place], [place] [address] Name: Maeve Jones RN Position: [facility] RN Member Role: Primary Care Nurse Care Team Related Persons Name: MEG MARTIN Address: home [address] [place] [address] Name: JAKE RODRIGUES Address: [place] [address]
--- OUTSIDE RECORDS SUMMARY | 2023-05-02 12:21 | XMS_ITS | Continuity of Care Document ---
Author Name Unknown Organization [facility] Address [address] [place] [address]- Care Team Providers Care Physician Relations Specialist Name Role Phone Yolanda Fischer MD Primary Care Physician Encounter [facility] Date(s): 05/10/20 - 06/09/20 [facility] [address] [place] [address]- Attending Physician: AdmWill mcdonough Admitting Physician: Admtr, Ar8 Referring Physician: Admtr, Ar8 Allergies, Adverse Reactions, Alerts Substance Reaction Severity Status atenolol Active codeine Active tetracycline Active erythromycin Active penicillin Active metoprolol Active Keflex Active Cefzil Active Tums Active Levaquin Active ibuprofen Active aspirin Active Benadryl, Topical Active shellfish Active sulfADIAZINE All sulfa drugs Active caffeine Active Cleocin T Active Fosamax Active Tylenol Active Contrast Dye Active Horses Active Mold Active Nuts Active Soy Products Active fentaNYL Active Latex rash Active Bactrim Active Biaxin XL Active Adhesive Bandage rash Active Cats Active [place] Active Dogs Active Dust Active Pork Active [...] capsule, 1 Refills, Maintenance, 04/17/20 10:01:00 EST, [facility][id number], [place]... Start Date: 04/17/20 Status: Ordered Multivitamins [...] stasis(Confirmed) Active 1Dr Melo rheum 2Dr Mudawwar measurement superintendent multiple food and drug allergies 3[facility] 4colonoscopy 06/21/2019 removed 4 polyps. if positive for ca will need colon resection Social History Social History Type Response Smoking Status Never (less than 100 in lifetime) entered on: 05/30/19 Sex Female
--- OUTSIDE RECORDS SUMMARY | 2023-05-02 12:21 | XMS_ITS | Continuity of Care Document ---
Author Name Unknown Organization [facility] Address [address] [place] [address]- Care Team Providers Care Supervisor Shuttle Veneering Name Role Phone Yolanda Fischer MD Primary Care Physician Encounter [facility] Date(s): 08/24/19 - 08/31/19 [facility] [address] [place] [address]- [place] Encounter Diagnosis Fibromyalgia(Discharge Diagnosis) - 08/24/19 Low back pain radiating down leg(Discharge Diagnosis) - 08/24/19 Sciatica of right side(Discharge Diagnosis) - 08/24/19 Attending Physician: Yolanda Fischer MD Allergies, Adverse [...] Active Adhesive Bandage rash Active Cats Active [place] Active Dogs Active Dust Active Horses Active [...] bleeding(Confirmed) Active 1Dr Melo rheum 2Dr Soco archeologist classical multiple food and drug allergies 3[facility] 4colonoscopy 06/21/2019 removed 4 polyps. if positive for ca will need colon resection Diagnosis Diagnosis Type Effective Dates Health Status Clinical Service Informant Fibromyalgia Discharge Diagnosis 08/24/19 Low back pain radiating down leg Discharge Diagnosis 08/24/19 Sciatica of right side Discharge Diagnosis 08/24/19 Vital Signs Most recent to oldest [Reference Range]: 1 Height 149.9 cm (08/24/19 2:55 PM) Weight 50.0 kg (08/24/19 2:55 PM) Oxygen Saturation [94-100 %] 99 % (08/24/19 2:55 PM) Pulse Rate [55-90 bpm] 109 bpm *H* (08/24/19 2:55 PM) Body Mass Index [18.5-24.99] 22.25 (08/24/19 2:55 PM) Blood Pressure [90-138/55-84 mm Hg] 138/ 78mm Hg (08/24/19 2:55 PM) Temperature [96.8-100.4 DegF] 98.7 DegF (08/24/19 2:55 PM) Mode of Delivery (Oxygen) Room air (08/24/19 2:55 PM) Blood pressure sites Arm, left (08/24/19 2:55 PM) Temperature Route Temporal (08/24/19 2:55 PM) Weight Obtained Via Standing scale (08/24/19 2:55 PM) Social History Social History Type Response Smoking Status Never (less than 100 in lifetime) entered on: 05/30/19 Sex
--- OUTSIDE RECORDS SUMMARY | 2023-05-02 12:21 | XMS_ITS | Continuity of Care Document ---
Author Name Unknown Organization [facility] Address [address] [facility] [facility] [place] [address]- Care Team Providers Care Brazing Machine Setter Name Role Phone Amado GERBRE, Yolanda Lance Primary Care Physician Encounter 02/09/20 - 05/30/20 [facility] [address] [facility], [address] [place] [address]- Attending Physician: Yolanda Fischer MD Admitting Physician: [...] rash Active Cats Active Contrast Dye Active [place] Active Dogs Active Dust Active Horses Active Mold Active Nuts Active Pork Active Soy Products Active fentaNYL Active Latex rash Active Bactrim Active Immunizations Given and Recorded Vaccine Date [...] 3 capsule, 1 Refills, Maintenance, 04/17/20 10:01:00 [id number], [place]... Start Date: 04/17/20 Status: Ordered Multivitamins [...] stasis(Confirmed) Active 1Dr Melo rheum 2Dr Soco wheel worker multiple food and drug allergies 3[facility] 4colonoscopy 06/21/2019 removed 4 polyps. if positive for ca will need colon resection Social History Social History Type Response Smoking Status Never (less than 100 in lifetime) entered on: 05/30/19 Sex Female
--- OUTSIDE RECORDS SUMMARY | 2023-05-02 12:21 | XMS_ITS | Continuity of Care Document ---
Author Name Unknown Organization [facility] Address [address] [address]- Care Team Providers Care Music Artist Name Role Phone Yolanda Fischer MD Primary Care Physician Encounter [facility] [id number] Date(s): 05/30/19 - 09/01/19 [facility] [address] [address]- [place] Attending Physician: Angel Ivey MD [...] Active Adhesive Bandage rash Active Cats Active [place] Active Dogs Active Dust Active Latex rash Active Mold Active Nuts Active Pork Active Soy Products Active fentaNYL Active Horses Active metoprolol Active Immunizations Given and Recorded Vaccine Date [...] bleeding(Confirmed) Active 1Dr Melo rheum 2Dr Soco refrigeration mechanic multiple food and drug allergies 3[facility] 4colonoscopy 06/21/2019 removed 4 polyps. if positive for ca will need colon resection Social History Social History Type Response Smoking Status Never (less than 100 in lifetime) entered on: 05/30/19 Sex
--- OUTSIDE RECORDS SUMMARY | 2023-05-02 12:21 | XMS_ITS | Continuity of Care Document ---
Author Name Unknown Organization [facility] Address [address] [address]- Care Team Providers Care Oracle E Business Developer Name Role Phone Rahat GERBER, Gaye Macias Primary Care Physician Encounter [facility] Date(s): 07/21/22 - 08/20/22 [facility] [address] [address]- Attending Physician: Will Wilson Admitting Physician: Admtr, [...] rash Active Cats Active Contrast Dye Active [place] Active Dogs Active Dust Active Horses Active [...] Instructions Replace Required Details, Route to PharmacyElectronically, [facility] #[id number], 150, c... Start Date: 06/24/22 Status: Ordered lisinopril 5 mg oral tablet 5 mg, 1, tablet, By Mouth, Daily, new start 01/22/22, # 30 tablet, Refills 2, Tot. Refills 2, Maintenance, 01/22/22 15:19:00 EDT, Route to Pharmacy Electronically, [facility] #[id number], Partialfill upon patient request if the prescription [...] 100 in lifetime) entered on: 05/30/19 Sex US Lower extremity * Event Display: Ultrasound Lower Extremity Authored Date: [id number] Patient Care team information Care Team Personnel Name: Yin Hsu Position: [facility] Onco RN Member Role: Primary Care Nurse Name: Gaye Giang MD Position: [facility] Primary Care Physician Member Role: PCP Address: Address: [address] [place] [address] Family Medicine [address] Name: Consuelo Louis RN Position: [facility] RN Member Role: Primary Care Nurse Name: Cherry Olsen MD Position: [facility] ASSISTANT STORE MANAGER TRAINEE MD Member Role: Lifetime ASSISTANT STORE MANAGER TRAINEE Physician Address: Address: [address] [place] [address] Women's Health [place] [address]- Name: Maeve Jones RN Position: [facility] RN Member Role: Primary Care Nurse Care Team Related Persons Name: MEG MARTIN Address: home [address] [place] [address] Name: JAKE RODRIGUES Address: [place] [address]
--- OUTSIDE RECORDS SUMMARY | 2023-05-02 12:21 | XMS_ITS | Continuity of Care Document ---
Author Name Unknown Organization [facility] Address [address] [address]- Care Team Providers Care Dining Room Attendant Cafeteria Name Role Phone Yolanda Fischer MD Primary Care Physician Encounter [facility] Date(s): 08/31/20 - 09/30/20 [facility] [address] [address]- [place] Allergies, Adverse Reactions, Alerts Substance Reaction [...] rash Active Cats Active Contrast Dye Active [place] Active Dogs Active Dust Active Horses [...] 3 capsule, 1 Refills, Maintenance, 04/17/20 10:01:00 [facility][id number], [place]... Start Date: 04/17/20 Status: Ordered Multivitamins [...] stasis(Confirmed) Active 1Dr Melo rheum 2Dr Soco practice administrator multiple food and drug allergies 3[facility] 4colonoscopy 06/21/2019 removed 4 polyps. if positive for ca will need colon resection Social History Social History Type Response Smoking Status Never (less than 100 in lifetime) entered on: 05/30/19 Sex Female
--- OUTSIDE RECORDS SUMMARY | 2023-05-02 12:21 | XMS_ITS | Continuity of Care Document ---
Author Name Unknown Organization [facility] Address [address] [address]- Care Team Providers Care Corsage Maker Name Role Phone Yolanda Fischer MD Primary Care Physician Encounter [facility] Date(s): 10/12/19 - 10/19/19 [facility] [address] [address]- [place] Encounter Diagnosis Fatigue(Discharge Diagnosis) - 10/12/19 Attending Physician: Angel Ivey MD Admitting Physician: [...] Active Adhesive Bandage rash Active Cats Active [place] Active Dogs Active Dust Active Horses Active [...] stasis(Confirmed) Active 1Dr Melo rheum 2Dr Lillieawyrn hearing aid repairer multiple food and drug allergies 3[facility] 4colonoscopy 06/21/2019 removed 4 polyps. if positive for ca will need colon resection Diagnosis Diagnosis Type Effective Dates Health Status Clini jennifer Service Informant Fatigue Discharge Diagnosis 10/12/19 Vital Signs Most recent to oldest [Reference Range]: 1 Height 152 cm (10/12/19 9:27 AM) Weight 50 kg (10/12/19 9:27 AM) Oxygen Saturation [94-100 %] 98 % (10/12/19 9:27 AM) Pulse Rate [55-90 bpm] 101 bpm *H* (10/12/19 9:27 AM) Body Mass Index [18.5-24.99] 21.64 (10/12/19 9:27 AM) Blood Pressure [90-138/55-84 mm Hg] 120/ 70mm Hg (10/12/19 9:27 AM) Mode of Delivery (Oxygen) Room air (10/12/19 9:27 AM) Blood pressure sites Arm, left (10/12/19 9:27 AM) Weight Obtained Via Standing scale (10/12/19 9:27 AM) Social History Social History Type Response Smoking Status Never (less than 100 in lifetime) entered on: 05/30/19 Sex Female
--- OUTSIDE RECORDS SUMMARY | 2023-05-02 12:21 | XMS_ITS | Continuity of Care Document ---
Author Name Unknown Organization [facility] Address [address] [place] [address]- Care Team Providers Care Cut Roll Machine Operator Name Role Phone Yolanda Fischer MD Primary Care Physician Encounter [facility] Date(s): 05/30/20 - 08/01/20 [facility] [address] [place] [address]- Discharge Disposition: A-D/C Home Attending Physician: Aleks [...] rash Active Cats Active Contrast Dye Active [place] Active Dogs Active Dust Active Horses Active [...] 3 capsule, 1 Refills, Maintenance, 04/17/20 10:01:00 [facility][id number], [place]... Start Date: 04/17/20 Status: Ordered Multivitamins [...] stasis(Confirmed) Active 1Dr Melo rheum 2Dr Soco endodontics dentist multiple food and drug allergies 3[facility] 4colonoscopy 06/21/2019 removed 4 polyps. if positive for ca will need colon resection Social History Social History Type Response Smoking Status Never (less than 100 in lifetime) entered on: 05/30/19 Sex Female
--- OUTSIDE RECORDS SUMMARY | 2023-05-02 12:21 | XMS_ITS | Continuity of Care Document ---
Author Name Unknown Organization [facility] Address [address] [place] [address]- Care Team Providers Care Tin Cutter Name Role Phone Rahat GERBER, Gaye Macias Primary Care Physician Encounter [facility] Date(s): 06/10/22 - 07/10/22 [facility] [address] [place], [place] [address] Attending Physician: Admtr, Logan8 Admitting Physician: Admtr, Ar8 Referring Physician: Admtr, Ar8 Allergies, Adverse Reactions, Alerts Substance Reaction Severity Status atenolol Active codeine Active tetracycline Active penicillin Active predniSONE Allergy to sulfa drugs Activ e ibuprofen Active aspirin Active doxycycline 1 Moderate Active clindamycin Active erythromycin Active shellfish Active amoxicillin Active sulfa drugs Active sulfADIAZINE All sulfa drugs Active metoprolol Active caffeine Active Benadryl, Topical 2 Active Keflex Active Cefzil Active Tums Active Augmentin Active Levaquin Active Tylenol Active Horses Active Mold Active Nuts Active Cleocin T Active Fosamax Active Bactrim Active Biaxin XL Active Adhesive Bandage rash Active Cats Active [place] Active Contrast Dye Active Dogs Active Dust [...] Instructions Replace Required Details, Route to PharmacyElectronically, [facility][id number], 150, c... Start Date: 06/24/22 Status: Ordered lisinopril 5 mg oral tablet 5 mg, 1, tablet, By Mouth, Daily, new start 01/22/22, # 30 tablet, Refills 2, Tot. Refills 2, Maintenance, 01/22/22 15:19:00 EDT, Route to Pharmacy Electronically, [facility] #[id number], Partialfill upon patient request if the prescription [...] Care Team Personnel Name: Yin Hsu Position: [facility] Onco RN Member Role: Primary Care Nurse Name: Gaye Giang MD Position: [facility] Primary Care Physician Member Role: PCP Address: Address: [address] [place] [address] [place] [address]- Name: Consuelo Louis RN Position: [facility] RN Member Role: Primary Care Nurse Name: Cherry Olsen MD Position: [facility] TOY MECHANIC MD Member Role: Lifetime TOY MECHANIC Physician Address: Address: [address] [place] [address] Women's Health [place] [address]- Name: Maeve Jones RN Position: [facility] RN Member Role: Primary Care Nurse Care Team Related Persons Name: MEG MARTIN Address: home [address] [place] [address] Name: JAKE RODRIGUES Address: [place] [address]
--- OUTSIDE RECORDS SUMMARY | 2023-05-02 12:22 | XMS_ITS | Continuity of Care Document ---
Author Name Unknown Organization [facility] Address [address] [address]- Care Team Providers Care Rn Diabetes Educator Name Role Phone Yolanda Fischer MD Primary Care Physician Encounter [facility] Date(s): 01/21/21 - 02/20/21 [facility] [address] [address]- [place] Allergies, Adverse Reactions, Alerts Substance Reaction [...] rash Active Cats Active Contrast Dye Active [place] Active Dogs Active Dust Active Horses Active [...] each, 2 Refills, Maintenance, 12/25/20 10:09:00 EDT, [facility] #[id number], Partial fill upon patient request if the [...] kit, 0 Refills, Maintenance, 01/14/21 12:14:00 EDT, [facility] #[id number], Partial fill upon patient request if the [...] stasis(Confirmed) Active 1Dr Melo rheum 2Dr Soco safety deposit boxes custodian multiple food and drug allergies 3[facility] 4colonoscopy 06/21/2019 removed 4 polyps. if positive for ca will need colon resection Social History Social History Type Response Smoking Status Never (less than 100 in lifetime) entered on: 05/30/19 Sex
--- OUTSIDE RECORDS SUMMARY | 2023-05-02 12:22 | XMS_ITS | Continuity of Care Document ---
Author Name Unknown Organization [facility] Address [address] [place] [address]- Care Team Providers Care Forest Fire Fighter Name Role Phone Lawrence GERBER, Ruma Bauer Primary Care Physician [place] [facility] Date(s): 08/15/22 - 09/14/22 [facility] [address] [place] [address]- Allergies, Adverse Reactions, Alerts Substance Reaction Severity [...] rash Active Cats Active Contrast Dye Active [place] Active Dogs Active Dust Active Horses Active [...] 2 Refills, Maintenance, 09/08/22 10:06:00 EDT, Tablet, [facility][id number],... Start Date: 09/08/22 Status: Ordered lisinopril 5 mg oral tablet 5 mg, 1, tablet, By Mouth, Daily, new start 01/22/22, # 30 tablet, Refills 2, Tot. Refills 2, Maintenance, 01/22/22 15:19:00 EDT, Route to Pharmacy Electronically, [facility][id number], Partialfill upon patient request if the prescription is fo... Start Date: 01/22/22 Stop Date: 04/22/22 Status: Ordered lisinopril 5 mg oral tablet 5 mg, 1, tablet, By Mouth, Daily, # 90 tablet, Refills 1, Tot. Refills 1, Maintenance, 09/02/22 9:47:00 EDT, Route to Pharmacy Electronically, [facility][id number], 150, cm, 08/27/22 14:11:00 EDT, Height, 45.9, [...] Care Team Personnel Name: Yin Hsu Position: [facility] Onco RN Member Role: Primary Care Nurse Name: Ruma Bravo MD Position: [facility] Primary Care Physician Member Role: PCP Address: Address: [address] [place] [address] [place] [address]- Name: Consuelo Louis RN Position: [facility] RN Member Role: Primary Care Nurse Name: Cherry Olsen MD Position: [facility] SHAMPOO TECHNICIAN MD Member Role: Lifetime SHAMPOO TECHNICIAN Physician Address: Address: [address] [place] [address]- Name: Maeve Jones RN Position: [facility] RN Member Role: Primary Care Nurse Care Team Related Persons Name: MEG MARTIN Address: home [address] [place] [address] Name: JAKE RODRIGUES Address: [place] [address]
--- OUTSIDE RECORDS SUMMARY | 2023-05-02 12:22 | XMS_ITS | Continuity of Care Document ---
Author Name Unknown Organization [facility] [place] [facility] Address [address] [place] [address]- Care Team Providers Care Transfer Driver Name Role Phone Ruma Bravo MD Primary Care Physician Encounter [facility] Date(s): 11/05/22 - 12/05/22 [facility] [address] [place] [address]- Allergies, Adverse Reactions, Alerts Substance Reaction Severity [...] Active Levaquin Active Tylenol Active Cats Active [place] Active Horses Active Mold Active Nuts Active [...] 2 Refills, Soft Stop, 10/15/22 14:04:00 EDT, [facility] #[id number], Partial fill upon patient request if the [...] 11/03/22 16:12:00 EDT, Route to Pharmacy Electronically, [facility] #[id number], Partial fill upon patient request if the [...] 2 Refills, Maintenance, 09/08/22 10:06:00 EDT, Tablet, [facility] #[id number],... Start Date: 09/08/22 Status: Ordered lisinopril 5 mg oral tablet 5 mg, 1, tablet, By Mouth, Daily, # 90 tablet, Refills 1, Tot. Refills 1, Maintenance, 09/02/22 9:47:00 EDT, Route to Pharmacy Electronically, [facility] #[id number], 150, cm, 08/27/22 14:11:00 EDT, Height, 45.9, [...] Refills, Soft Stop, 11/03/22 16:11:00 EDT, Tablet, [facility] #[id number], Partial fill upon patient request if the [...] Care Team Personnel Name: Nadege Hsuricia Position: [facility] Onco RN Member Role: Primary Care Nurse Name: Ruma Bravo MD Position: [facility] Physician - Primary Care Member Role: PCP Address: Address: [address] [place] [address] Family Medicine [address] Name: Pretty GERBER, Cherry Gaines Position: [facility] CORN CHIP MAKER MD Member Role: Lifetime CORN CHIP MAKER Physician Address: Address: [address] [place] [address] Women's Health Access Rn [address] Name: Maeve Jones RN Position: [facility] RN Member Role: Primary Care Nurse Care Team Related Persons Name: MEG MARTIN Address: home [address] [place] [address] Name: JAKE RODRIGUES Address: [place] [address]
--- OUTSIDE RECORDS SUMMARY | 2023-05-02 12:22 | XMS_ITS | Continuity of Care Document ---
Author Name Unknown Organization [facility] Address [address] [address]- Care Team Providers Care Manager Radiation Name Role Phone Ruma Bravo MD Primary Care Physician Encounter [facility] [place] Date(s): 03/20/23 - 03/27/23 [facility] [address] [address]- Attending Physician: Savanah Charlton Admitting Physician: Savanah Charlton Referring Physician: Savanah Charlton Allergies, Adverse Reactions, Alerts Substance Reaction Severity Status atenolol Active codeine Active clindamycin Active penicillin Active metoprolol Active caffeine Active sulfa drugs Active ibuprofen Active aspirin Active doxycycline 1 Moderate Active tetracycline Active erythromycin Active amoxicillin Active sulfADIAZINE All sulfa drugs Active predniSONE Allergy to sulfa drugs Activ e shellfish Active Benadryl, Topical 2 Active Keflex Active Cefzil Active Tums Active Levaquin Active Tylenol Active Bactrim Active Horses Active Mold Active Nuts Active Cleocin T Active Fosamax Active Augmentin Active Biaxin XL Active Adhesive Bandage rash Active Cats Active [place] Active Contrast Dye Active Dogs Active Dust [...] 1 Refills, Maintenance, 01/19/23 10:23:00 EDT, Tablet, [facility] #[id number], Partial fill upon patient request if the [...] Gm, 0 Refills, Maintenance, 12/17/22 11:48:00 EDT, [facility] #[id number], Partial fill upon patient request if the prescription is for a schedule II opioid drug., 152, cm,... Start Date: 12/17/22 Status: Ordered diclofenac 1% topical gel 1 application, Topically, 4 times a day, # 100 Gm, 0 Refills, Maintenance, 12/25/22 11:12:00 EDT, [facility] #[id number], Partial fill upon patient request if the prescription is for a schedule II opioid drug., 152, cm, 12/25/22 10:26:00 EDT... Start Date: 12/25/22 Status: Ordered diphenhydrAMINE 50 mg oral tablet 1 tablet = 50 mg, By Mouth, Once, [address] scan, # 1 tablet, 2 Refills, Soft Stop, 10/15/22 14:04:00 EDT, [facility] #[id number], Partial fill upon patient request if the [...] 11/03/22 16:12:00 EDT, Route to Pharmacy Electronically, [facility] #[id number], Partial fill upon patient request if the [...] 3 Refills, Maintenance, 03/24/23 9:43:00 EST, Tablet, [facility] #[id number],... Start Date: 03/24/23 Status: Ordered lisinopril 5 mg oral tablet 5 mg, 1, tablet, By Mouth, Daily, # 90 tablet, Refills 1, Tot. Refills 1, Maintenance, 09/02/22 9:47:00 EDT, Route to Pharmacy Electronically, [facility] #[id number], 150, cm, 08/27/22 14:11:00 EDT, Height, 45.9, [...] mL, 0 Refills, Maintenance, 10/21/22 16:47:00 EDT, [facility]/pharmacy #[id number], Partial fill upon patient request if [...] Care Team Personnel Name: Yin Hsu Position: [facility] RN Member Role: Primary Care Nurse Name: Ruma Bravo MD Position: [facility] Physician - Primary Care Member Role: PCP Address: Address: [address] [place] [address] - [address] Name: Shikha Rivera RN Position: [facility] RN Member Role: Primary Care Nurse Name: Consuelo Louis RN Position: [facility] RN Member Role: Primary Care Nurse Name: Cherry Olsen MD Position: [facility] PROSTHETIC TECHNICIAN MD Member Role: Lifetime PROSTHETIC TECHNICIAN Physician Address: Address: [address] [place] [address]- Name: Maeve Jones RN Position: [facility] RN Member Role: Primary Care Nurse Care Team Related Persons Name: MEG MARTIN Address: home [address] [place] [id number] Name: JAKE RODRIGUES Address: [place] [address]
--- OUTSIDE RECORDS SUMMARY | 2023-05-02 12:22 | XMS_ITS | Continuity of Care Document ---
Author Name Unknown Organization [facility] Address [address] [place] [address]- Care Team Providers Care Customer Complaint Service Supervisor Name Role Phone Patti HARDEN, Shandra Lance Primary Care Physician [place] [facility] [place] 02/27/21 - 05/08/21 [facility] [address] [place] [address]- Attending Physician: Rahat GERBER, Gaye Macias Referring Physician: Amado GERBER, Yolanda Lance Allergies, [...] Active Adhesive Bandage rash Active Cats Active Neal Active Contrast Dye Active Dogs Active Dust [...] each, 2 Refills, Maintenance, 12/25/20 10:09:00 EDT, [id number], Partial fill upon patient request if the [...] stasis(Confirmed) Active 1Dr Melo rheum 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 if positive for ca will need colon resection 5Late April 2020 6Pt. had 2nd Pfizer vaccine on 09/19 and pain in her L hand on 10/07. Social History Social History Type Response Smoking Status Never (less than 100 in lifetime) entered on: 05/30/19 Sex
--- OUTSIDE RECORDS SUMMARY | 2023-05-02 12:22 | XMS_ITS | Continuity of Care Document ---
Author Name Unknown Organization [facility] Address [address] [place] [address]- Care Team Providers Care Pecan Grower Name Role Phone Rahat GERBER, Gaye Macias Primary Care Physician ( [phone] [place] [facility] [place] Date(s): 12/02/21 - 01/02/22 [facility] [address] [place] [address]- Attending Physician: Zuleima HARDEN, Olivia Allergies, Adverse [...] rash Active Cats Active Contrast Dye Active [place] Active Dogs Active Dust Active Horses Active [...] on: 05/30/19 Sex Care Team Personnel Name: Gaye Giang MD Address: [address] [place] [address]
--- OUTSIDE RECORDS SUMMARY | 2023-05-02 12:22 | XMS_ITS | Continuity of Care Document ---
Author Name Unknown Organization [facility] Address [address] [place] [address]- Care Team Providers Care Help Desk Team Leader Name Role Phone Rahat GERBER, Gaye Macias Primary Care Physician [place] [facility] Date[place] 02/27/22 - 03/29/22 [facility] [address] [place] [address]- Encounter Diagnosis Reactive arthritis(Discharge Diagnosis) - 03/20/21 [...] Latex rash Active Mold Active Nuts Active Bactrim Active Biaxin XL Active Adhesive Bandage rash Active Cats Active [place] Active Contrast Dye Active Dogs Active Dust Active Soy Products Active fentaNYL Active Other Food Allergy chicken broccoli other veggetables tomatoes onions cucumbers lettuce peas carrots wheat rash hives itchy Active 1Pt States she tolerates Benadryl by mouth fine 11/06/20 2Rash Immunizations Given and Recorded Vaccine Date Status Refusal Reason SARS-CoV-2 (COVID-19) mRNA BNT-162b2 vac 08/29/20 Recorded tetanus-diphtheria toxoids (Td) 1 07/06/19 Given tetanus/diphtheria/pertussis, acel(Tdap) 2 01/25/10 Given 1Result Comment: wrong chart 2Admin Note: vis given 11-18-2008 Medications lisinopril 5 mg oral tablet 5 mg, 1, tablet, By Mouth, Daily, new start 01/22/22, # 30 tablet, Refills 2, Tot. Refills 2, Maintenance, 01/22/22 15:19:00 EDT, Route to Pharmacy Electronically, [facility] #[id number], Partialfill upon patient request if the prescription is fo... Start Date: 01/22/22 Stop Date: 04/22/22 Status: Ordered metroNIDAZOLE 500 mg oral tablet 1 tablet = 500 mg, By Mouth, 3 times a day, # 15 tablet, 0 Refills, Maintenance, 02/27/22 16:27:00 EDT, Tablet, [facility] #[id number], Partial fill upon patient request if the [...] Non- BH Authored Date: * Chelsea Pro MD D: REVIEW Event Display: Radiology Result Scanned Authored Date: * Event Display: Radiology Result Scanned Authored Date: * Event Display: Radiology Result Scanned Authored Date: * Monet Rodriguez: PERFORM Event Display: Cardiovascular Results Scanned Authored Date: Cardiology Outpatient Note * Marjorie Adorno: PERFORM Event Display: Cardiology Note Office Authored Date: * Moent Rodriguez: PERFORM Event Display: Cardiology Note Office Authored Date: * Marjorie Adorno: PERFORM Event Display: Cardiology Note Office Authored Date: CT Abdomen * Event Display: CT Scan Abdomen Authored Date: Patient Care team information Care Team Personnel Name: Yin Hsu Position: [facility] Onco RN Member Role: Primary Care Nurse Name: Gaye Giang MD Position: [facility] Primary Care Physician Member Role: PCP Address: Address: [address] [place] [address] Name: Consuelo Louis RN Position: [facility] RN Member Role: Primary Care Nurse Name: Cherry Olsen MD Position: [facility] CREW TRUCK DRIVER MD Member Role: Lifetime CREW TRUCK DRIVER Physician Address: Address: [address] [place] [address] [facility] [place] [address]- Name: Maeve Jones RN Position: [facility] RN Member Role: Primary Care Nurse Care Team Related Persons Name: MEG MARTIN Address: home [address] [place] [id number] Name: JAKE RODRIGUES Address: [place] [address]
--- OUTSIDE RECORDS SUMMARY | 2023-05-02 12:22 | XMS_ITS | Continuity of Care Document ---
Author Name Unknown Organization [facility] Address [address] [place] [address]- Care Team Providers Care Knurling Machine Operator Name Role Phone Amado GERBER, Yolanda Lance Primary Care Physician [place] [facility] [place] Date(s): 11/14/19 - 02/01/20 [facility] [address] [place] [address] [facility] Discharge Disposition: A-D/C Home Attending Physician: Aleks Barger MD Admitting Physician: Aleks Barger MD Referring Physician: Laury Espinosa MD Allergies, [...] rash Active Cats Active Contrast Dye Active [place] Active Dogs Active Dust Active Horses Active [...] stasis(Confirmed) Active 1Dr Melo rheum 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 if positive for ca will need colon resection Vital Signs Most recent to oldest [Reference Range]: 1 Height 150.0 cm (12/02/19 11:15 AM) Weight 52.4 kg (12/02/19 11:15 AM) Pulse Rate [55-90 bpm] 85 bpm (12/02/19 11:15 AM) Body Mass Index [18.5-24.99] 23.29 (12/02/19 11:15 AM) Blood Pressure [90-138/55-84 mm Hg] 146/ 73mm Hg *H* (12/02/19 11:15 AM) Temperature [96.8-100.4 DegF] 98.0 DegF (12/02/19 11:15 AM) Blood pressure sites Arm, right (12/02/19 11:15 AM) Temperature Route Oral (12/02/19 11:15 AM) Dry Weight 52.4 kg (12/02/19 11:15 AM) Weight Obtained Via Standing scale (12/02/19 11:15 AM) Dry Weight Obtained Via Standing scale (12/02/19 11:15 AM) Social History Social History Type Response Smoking Status Never (less than 100 in lifetime) entered on: 05/30/19 Sex Female
--- OUTSIDE RECORDS SUMMARY | 2023-05-02 12:22 | XMS_ITS | Continuity of Care Document ---
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 if positive for ca will need colon resection Social History Social History Type Response Smoking Status Never (less than 100 in lifetime) entered on: 05/30/19 Sex Female
--- OUTSIDE RECORDS SUMMARY | 2023-05-02 12:22 | XMS_ITS | Continuity of Care Document ---
Author Name Unknown Organization [facility] Address [address] [address]- Care Team Providers Care Research Physiologist Name Role Phone Yolanda Fischer MD Primary Care Physician Encounter [facility] [place] Date(s): 07/05/20 - 07/12/20 [facility] [address] [address]- Attending Physician: Savanah Charlton Admitting Physician: Savanah Charlton Referring Physician: Yolanda Fischer MD Allergies, Adverse Reactions, Alerts Substance Reaction Severity Status atenolol Active codeine Active tetracycline Active penicillin Active Keflex Active Cefzil Active ibuprofen Active aspirin Active Benadryl, Topical Active erythromycin Active shellfish Active sulfADIAZINE All sulfa drugs Active metoprolol Active caffeine Active Cleocin T Active Fosamax Active Tums Active Levaquin Active Tylenol Active Horses Active Mold Active Nuts Active Soy Products Active fentaNYL Active Latex rash Active Bactrim Active Biaxin XL Active Adhesive Bandage rash Active Cats Active [place] Active Contrast Dye Active Dogs Active Dust [...] capsule, 1 Refills, Maintenance, 04/17/20 10:01:00 [facility] #[id number], [place]... Start Date: 04/17/20 Status: Ordered Multivitamins [...] stasis(Confirmed) Active 1Dr Melo rheum 2Dr [place] buyer intern multiple food and drug allergies 3[facility] 4colonoscopy 06/21/2019 removed 4 polyps. if positive for ca will need colon resection Vital Signs Most recent to oldest [Reference Range]: 1 Height 150.0 cm (07/05/20 9:01 AM) Weight 52.0 kg (07/05/20 9:01 AM) Oxygen Saturation [94-100 %] 99 % (07/05/20 9:01 AM) Pulse Rate [55-90 bpm] 77 bpm (07/05/20 9:01 AM) Body Mass Index [18.5-24.99] 23.11 (07/05/20 9:01 AM) Blood Pressure [90-138/55-84 mm Hg] 118/ 74mm Hg (07/05/20 9:01 AM) Mode of Delivery (Oxygen) Room air (07/05/20 9:01 AM) Weight Obtained Via Standing scale (07/05/20 9:01 AM) Social History Social History Type Response Smoking Status Never (less than 100 in lifetime) entered on: 05/30/19 Sex Female
--- OUTSIDE RECORDS SUMMARY | 2023-05-02 12:22 | XMS_ITS | Continuity of Care Document ---
Author Name Unknown Organization [facility] Address [address] [place] [address]- Care Team Providers Care Gas Load Dispatcher Name Role Phone Yolanda Fischer MD Primary Care Physician En[facility] Date(s): 11/11/19 - 12/11/19 [facility] [address] [place] [address] [facility] Allergies, Adverse Reactions, Alerts Substance [...] rash Active Cats Active Contrast Dye Active [place] Active Dogs Active Dust Active Horses Active [...] stasis(Confirmed) Active 1Dr Melo rheum 2Dr [place] outreach educator multiple food and drug allergies 3[facility] 4colonoscopy 06/21/2019 removed 4 polyps. if positive for ca will need colon resection Social History Social History Type Response Smoking Status Never (less than 100 in lifetime) entered on: 05/30/19 Sex Female
--- OUTSIDE RECORDS SUMMARY | 2023-05-02 12:22 | XMS_ITS | Continuity of Care Document ---
Author Name Unknown Organization [facility] Address [address] [address]- Care Team Providers Care Director Of Vocational Training Name Role Phone Rahat GERBER, Gaye Macias Primary Care Physician ( [phone] Encounter [facility] [place] [facility] [id number] Date(s): 11/27/21 - 12/04/21 [facility] [address] [address]- Attending Physician: Savanah Charlton Admitting Physician: Savanah [...] rash Active Cats Active Contrast Dye Active [place] Active Dogs Active Dust Active Horses Active [...] Most recent to oldest [Reference Range]: 1 Oxygen Saturation [94-100 %] 99 % (11/27/21 11:00 AM) Pulse Rate [55-90 bpm] 86 bpm (11/27/21 11:00 AM) Blood Pressure [90-138/55-84 mm Hg] 140/ 65mm Hg *H* (11/27/21 11:00 AM) Blood pressure sites Arm, right (11/27/21 11:00 AM) Social History Social History Type Response Smoking Status Never (less than 100 in lifetime) entered on: 05/30/19 Sex
--- OUTSIDE RECORDS SUMMARY | 2023-05-02 12:22 | XMS_ITS | Continuity of Care Document ---
Author Name Unknown Organization [facility] Address [address] [place] [address]- Care Team Providers Care Storyboard Artist Name Role Phone Yolanda Fischer MD Primary Care Physician [place] [facility] [place] - 11/07/19 [facility] [address] [place] [address] Encounter Diagnosis Osteoporosis(Discharge Diagnosis) - 10/31/19 Fibromyalgia(Discharge Diagnosis) - 10/31/19 Low back pain radiating down leg(Discharge Diagnosis) - 10/31/19 Attending Physician: Yolanda Fischer MD Allergies, Adverse [...] rash Active Cats Active Contrast Dye Active [place] Active Dogs Active Dust Active Horses Active [...] stasis(Confirmed) Active 1Dr Melo rheum 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 if positive for ca will need colon resection Diagnosis Diagnosis Type Effective Dates Health Status Clinical Service Informant Osteoporosis Discharge Diagnosis 10/31/19 Fibromyalgia Discharge Diagnosis 10/31/19 Low back pain radiating down leg Discharge Diagnosis 10/31/19 Vital Signs Most recent to oldest [Reference Range]: 1 Height 152 cm (10/31/19 2:24 PM) Social History Social History Type Response Smoking Status Never (less than 100 in lifetime) entered on: 05/30/19 Sex Female
--- OUTSIDE RECORDS SUMMARY | 2023-05-02 12:22 | XMS_ITS | Continuity of Care Document ---
Author Name Unknown Organization [facility] Address [address] [place] [address]- Care Team Providers Care School Photograph Editor Name Role Phone Yolanda Fischer MD Primary Care Physician En[facility] Date(s): 12/13/20 - 12/20/20 [facility] [address] [place] [address]- Encounter Diagnosis Cellulitis of finger, left(Discharge Diagnosis) - 12/13/20 Arthritis of carpometacarpal (CMC) joint of left thumb(Discharge Diagnosis) - 12/13/20 Fibromyalgia(Discharge Diagnosis) - 12/13/20 Attending Physician: Yloanda Fischer MD Allergies, Adverse Reactions, Alerts Substance [...] Active Cats Active Contrast Dye Active [place] Active Dogs Active Dust Active Horses Active [...] stasis(Confirmed) Active 1Dr Melo rheum 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 if positive for ca will need colon resection Diagnosis Diagnosis Type Effective Dates Health Status Clinical Service Informant Cellulitis of finger, left Discharge Diagnosis 12/13/20 Arthritis of carpometacarpal (CMC) joint of left thumb Discharge Diagnosis 12/13/20 Fibromyalgia Discharge Diagnosis 12/13/20 Vital Signs Most recent to oldest [Reference Range]: 1 Height 150 cm (12/13/20 11:17 AM) Weight 50.9 kg (12/13/20 11:17 AM) Oxygen Saturation [94-100 %] 98 % (12/13/20 11:17 AM) Pulse Rate [55-90 bpm] 95 bpm *H* (12/13/20 11: AM) Body Mass Index [18.5-24.99] 22.62 (12/13/20 11:17 AM) Blood Pressure [90-138/55-84 mm Hg] 132/ 60mm Hg (12/13/20 11:17 AM) Respiratory Rate [16-30 br/min] 16 br/mi n (12/13/20 11:17 AM) Temperature [96.8-100.4 DegF] 99.4 DegF (12/13/20 11:17 AM) Blood pressure sites Arm, right (12/13/20 11:17 AM) Temperature Route Oral (12/13/20 11:17 AM) Social History Social History Type Response Smoking Status Never (less than 100 in lifetime) entered on: 05/30/19 Sex
--- OUTSIDE RECORDS SUMMARY | 2023-05-02 12:22 | XMS_ITS | Continuity of Care Document ---
Author Name Unknown Organization [facility] Address [address] [facility] [place] [address]- Care Team Providers Care Gas Torch Solderer Name Role Phone Ruma Bravo MD Primary Care Physician En[place] [facility] [place] Date(s): 03/11/23 - 04/10/23 [facility] [address] [place] [address]- Attending Physician: Admtr, Will Admitting Physician: Admtr, Will Referring Physician: Admtr, Ar8 Allergies, Adverse Reactions, Alerts Substance Reaction Severity Status atenolol Active codeine Active tetracycline Active penicillin Active sulfADIAZINE All sulfa drugs Active caffeine Active ibuprofen Active aspirin Active doxycycline 1 Moderate Active clindamycin Active erythromycin Active amoxicillin Active metoprolol Active predniSONE Allergy to sulfa drugs Activ e sulfa drugs Active shellfish Active Benadryl, Topical 2 Active Keflex Active Cefzil Active Tums Active Levaquin Active Tylenol Active Cats Active [place] Active Horses Active Mold Active Nuts Active [...] 1 Refills, Maintenance, 01/19/23 10:23:00 EDT, Tablet, [facility] #[id number], Partial fill upon patient request if the [...] Gm, 0 Refills, Maintenance, 12/17/22 11:48:00 EDT, [facility] #[id number], Partial fill upon patient request if the prescription is for a schedule II opioid drug., 152, cm,... Start Date: 12/17/22 Status: Ordered diclofenac 1% topical gel 1 application, Topically, 4 times a day, # 100 Gm, 0 Refills, Maintenance, 12/25/22 11:12:00 EDT, [facility] #[id number], Partial fill upon patient request if the prescription is for a schedule II opioid drug., 152, cm, 12/25/22 10:26:00 EDT... Start Date: 12/25/22 Status: Ordered diphenhydrAMINE 50 mg oral tablet 1 tablet = 50 mg, By Mouth, Once, [address] scan, # 1 tablet, 2 Refills, Soft Stop, 10/15/22 14:04:00 EDT, [facility] #[id number], Partial fill upon patient request if the [...] 11/03/22 16:12:00 EDT, Route to Pharmacy Electronically, [facility] #[id number], Partial fill upon patient request if the [...] 3 Refills, Maintenance, 03/24/23 9:43:00 EST, Tablet, [facility] #[id number],... Start Date: 03/24/23 Status: Ordered lisinopril 5 mg oral tablet 5 mg, 1, tablet, By Mouth, Daily, # 90 tablet, Refills 1, Tot. Refills 1, Maintenance, 09/02/22 9:47:00 EDT, Route to Pharmacy Electronically, [facility] #[id number], 150, cm, 08/27/22 14:11:00 EDT, Height, 45.9, [...] (less than 100 in lifetime) entered on: 1/27/20 Sex Patient Care team information Care Team Personnel Name: Yin Hsu Position: [facility] Onco RN Member Role: Primary Care Nurse Name: Ruma Bravo MD Position: [facility] Physician - Primary Care Member Role: PCP Address: Address: [address] [place] [address] Name: Shikha Rivera RN Position: [facility] RN Member Role: Primary Care Nurse Name: Consuelo Louis RN Position: [facility] RN Member Role: Primary Care Nurse Name: Cherry Olsen MD Position: [facility] CLINIC BUSINESS MANAGER MD Member Role: Lifetime CLINIC BUSINESS MANAGER Physician Address: Address: [address] [place] [address] [facility] [place] [address]- Name: Maeve Jones RN Position: [facility] RN Member Role: Primary Care Nurse Care Team Related Persons Name: MEG MARTIN Address: [address] [address] Name: JAKE RODRIGUES Address: [place] [address]
--- OUTSIDE RECORDS SUMMARY | 2023-05-02 12:22 | XMS_ITS | Continuity of Care Document ---
Author Name Unknown Organization [facility] Address [address] [address]- Care Team Providers Care Cyber Crime Investigator Name Role Phone Yolanda Fischer MD Primary Care Physician En[place] [facility] [place] Date(s): 10/18/19 - 12/14/19 [facility] [address] [address]- [place] Attending Physician: Lefty Plummer MD, [...] rash Active Cats Active Contrast Dye Active [place] Active Dogs Active Dust Active Horses Active [...] stasis(Confirmed) Active 1Dr Melo rheum 2Dr [place] cook fish and chips multiple food and drug allergies 3[facility] 4colonoscopy 06/21/2019 removed 4 polyps. if positive for ca will need colon resection Social History Social History Type Response Smoking Status Never (less than 100 in lifetime) entered on: 05/30/19 Sex Female
--- OUTSIDE RECORDS SUMMARY | 2023-05-02 12:22 | XMS_ITS | Continuity of Care Document ---
Author Name Unknown Organization [facility] Address [address] [place] [address]- Care Team Providers Care Real Estate Valuer Name Role Phone Yolanda Fischer MD Primary Care Physician Encounter [facility] Date(s): 11/03/19 - 12/03/19 [facility] [address] [place] [address]- [facility] Attending Physician: Admtr, Ar8 Admitting Physician: [...] rash Active Cats Active Contrast Dye Active [place] Active Dogs Active Dust Active Horses Active [...] stasis(Confirmed) Active 1Dr Melo rheum 2Dr Soco paper twister tender multiple food and drug allergies 3[facility] 4colonoscopy 06/21/2019 removed 4 polyps. if positive for ca will need colon resection Social History Social History Type Response Smoking Status Never (less than 100 in lifetime) entered on: 05/30/19 Sex Female
--- OUTSIDE RECORDS SUMMARY | 2023-05-02 12:22 | XMS_ITS | Continuity of Care Document ---
Author Name Unknown Organization [facility] Address [address] [place] [address]- Care Team Providers Care Oil Seal Assembler Name Role Phone Gaye Giang MD Primary Care Physician [place] [facility] [place](s[place] 05/28/22 - 06/28/22 [facility] [address] [place] [address] Attending Physician: Laury Espinosa MD Admitting Physician: [...] rash Active Cats Active Contrast Dye Active [place] Active Dogs Active Dust Active Horses Active Mold Active Nuts Active Benadryl, Topical 2 Active Latex rash Active Soy Products Active [...] Instructions Replace Required Details, Route to PharmacyElectronically, [facility] #[id number], 150, c... Start Date: 06/24/22 Status: Ordered lisinopril 5 mg oral tablet 5 mg, 1, tablet, By Mouth, Daily, new start 01/22/22, # 30 tablet, Refills 2, Tot. Refills 2, Maintenance, 01/22/22 15:19:00 EDT, Route to Pharmacy Electronically, [facility] #[id number], Partialfill upon patient request if the prescription is fo... Start Date: 01/22/22 Stop Date: 04/22/22 Status: Ordered metroNIDAZOLE 500 mg oral tablet 1 tablet = 500 mg, By Mouth, 3 times a day, # 15 tablet, 0 Refills, Maintenance, 02/27/22 16:27:00 EDT, Tablet, [facility] #[id number], Partial fill upon patient request if the [...] Care Team Personnel Name: Yin Hsu Position: [facility] Onco RN Member Role: Primary Care Nurse Name: Gaye Giang MD Position: [facility] Primary Care Physician Member Role: PCP Address: Address: [address] [place] [address] Family Medicine [address] Name: Consuelo Louis RN Position: [facility] RN Member Role: Primary Care Nurse Name: Cherry Olsen MD Position: [facility] MARKETING COORDINATOR MD Member Role: Lifetime MARKETING COORDINATOR Physician Address: Address: [address] [facility] [place] [address]- Name: Maeve Jones RN Position: [facility] RN Member Role: Primary Care Nurse Care Team Related Persons Name: MEG MARTIN Address: home [address] [place] [address] Name: JAKE RODRIGUES Address: [place] [address]
--- OUTSIDE RECORDS SUMMARY | 2023-05-02 12:22 | XMS_ITS | Continuity of Care Document ---
Author Name Unknown Organization [facility] Address [address] [address]- Care Team Providers Care Fork Lift Technician Name Role Phone Ruma Bravo MD Primary Care Physician Encounter [facility] [id number] Date(s): 12/29/22 - 02/14/23 [facility] [address] [address]- Attending Physician: Savanah Charlton Admitting Physician: Savanah Charlton Referring Physician: Savanah Charlton Allergies, Adverse Reactions, Alerts Substance Reaction Severity Status atenolol Active codeine Active doxycycline 1 Moderate Active penicillin Active caffeine Active sulfa drugs Active ibuprofen Active aspirin Active tetracycline Active [...] Active Adhesive Bandage rash Active Cats Active Strum Active Contrast Dye Active Dogs Active Dust [...] 1 Refills, Maintenance, 01/19/23 10:23:00 EDT, Tablet, [facility] #[id number], Partial fill upon patient request if the [...] Gm, 0 Refills, Maintenance, 12/17/22 11:48:00 EDT, [facility] #[id number], Partial fill upon patient request if the prescription is for a schedule II opioid drug., 152, cm,... Start Date: 12/17/22 Status: Ordered diclofenac 1% topical gel 1 application, Topically, 4 times a day, # 100 Gm, 0 Refills, Maintenance, 12/25/22 11:12:00 EDT, [facility] #[id number], Partial fill upon patient request if the prescription is for a schedule II opioid drug., 152, cm, 12/25/22 10:26:00 EDT... Start Date: 12/25/22 Status: Ordered diphenhydrAMINE 50 mg oral tablet 1 tablet = 50 mg, By Mouth, Once, [address] scan, # 1 tablet, 2 Refills, Soft Stop, 10/15/22 14:04:00 EDT, [facility] #[id number], Partial fill upon patient request if the [...] 11/03/22 16:12:00 EDT, Route to Pharmacy Electronically, [facility] #[id number], Partial fill upon patient request if the [...] 2 Refills, Maintenance, 09/08/22 10:06:00 EDT, Tablet, [facility] #[id number],... Start Date: 09/08/22 Status: Ordered lisinopril 5 mg oral tablet 5 mg, 1, tablet, By Mouth, Daily, # 90 tablet, Refills 1, Tot. Refills 1, Maintenance, 09/02/22 9:47:00 EDT, Route to Pharmacy Electronically, [facility] #[id number], 150, cm, 08/27/22 14:11:00 EDT, Height, 45.9, [...] Care Team Personnel Name: Yin Hsu Position: [facility] Onco RN Member Role: Primary Care Nurse Name: Ruma Bravo MD Position: [facility] Physician - Primary Care Member Role: PCP Address: Address: [address] [place] [address] Name: Shikha Rivera RN Position: [facility] RN Member Role: Primary Care Nurse Name: Consuelo Louis RN Position: [facility] RN Member Role: Primary Care Nurse Name: Cherry Olsen MD Position: [facility] REGISTERED MAIL CLERK MD Member Role: Lifetime REGISTERED MAIL CLERK Physician Address: Address: [address] [place] [address] Women[facility] Health Commercial [place] [address]- Name: Maeve Jones RN Position: [facility] RN Member Role: Primary Care Nurse Care Team Related Persons Name: MEG MARTIN Address: home [address] [place] [address] Name: JAKE RODRIGUES Address: [place] [address]
--- OUTSIDE RECORDS SUMMARY | 2023-05-02 12:22 | XMS_ITS | Continuity of Care Document ---
Author Name Unknown Organization [facility] Address [address] [place] [address]- Care Team Providers Care Group Tester Name Role Phone Patti HARDEN, Shandra Lance Primary Care Physician [phone] [place] [facility] Date(s): 05/29/21 - 06/05/21 [facility] [address] [place] [address]- Encounter Diagnosis Arthritis of carpometacarpal (CMC) joint of left thumb(Discharge Diagnosis) - 05/29/21 Attending Physician: Alma GERBER, Chelsea Horner Referring Physician: Shandra Armstrong NP Allergies, Adverse [...] rash Active Cats Active Contrast Dye Active [place] Active Dogs Active Dust Active Horses Active [...] each, 2 Refills, Maintenance, 12/25/20 10:09:00 EDT, [facility] #[id number], Partial fill upon patient request if the [...] stasis(Confirmed) Active 1Dr Melo rheum 2Dr Soco acute care nurse multiple food and drug allergies 3[facility] 4colonoscopy 06/21/2019 removed 4 polyps. if positive for ca will need colon resection 5Late April 2020 6Pt. had 2nd Pfizer vaccine on 09/19 and pain in her L hand on 10/07. Diagnosis Diagnosis Type Effective Dates Health Status Clinical Service Informant Arthritis of carpometacarpal (CMC) joint of left thumb Discharge Diagnosis 05/29/21 Social History Social History Type Response Smoking Status Never (less than 100 in lifetime) entered on: 05/30/19 Sex
--- OUTSIDE RECORDS SUMMARY | 2023-05-02 12:23 | XMS_ITS | Continuity of Care Document ---
Author Name Unknown Organization [facility] Address [address] [address]- Care Team Providers Care Demo Coordinator Name Role Phone Rahat GERBER, Gaye Macias Primary Care Physician [place] [facility] [place] [id number] Date(s): 06/09/22 - 06/16/22 [facility] [address] [address]- Attending Physician: Harmony GERBER, Merced Denny Admitting [...] rash Active Cats Active Contrast Dye Active [place] Active Dogs Active Dust Active Horses Active [...] 01/22/22 15:19:00 EDT, Route to Pharmacy Electronically, [facility] #[id number], Partialfill upon patient request if the prescription is fo... Start Date: 01/22/22 Stop Date: 04/22/22 Status: Ordered metroNIDAZOLE 500 mg oral tablet 1 tablet = 500 mg, By Mouth, 3 times a day, # 15 tablet, 0 Refills, Maintenance, 02/27/22 16:27:00 EDT, Tablet, [facility] #[id number], Partial fill upon patient request if the [...] oldest [Reference Range]: 1 Height 150 cm (06/09/22 11:14 AM) Weight 46.3 kg (06/09/22 11:14 AM) Oxygen Saturation [94-100 %] 99 % (06/09/22 11:14 AM) Pulse Rate [55-90 bpm] 91 bpm *H* (06/09/22 11:14 AM) Body Mass Index [18.5-24.99 kg/m2] 20.58 kg/m2 (06/09/22 11:14 AM) Blood Pressure [90-138/55-84 mm Hg] 124/ 68mm Hg (06/09/22 11:14 AM) Blood pressure sites Arm, left (06/09/22 11:14 AM) Weight Obtained Via Standing scale (06/09/22 11:14 AM) Social History Social History Type Response Smoking Status Never (less than 100 in lifetime) entered on: 05/30/19 Sex Note * Sarina Rios: PERFORM, SIGN, VERIFY Event Display: Patient Education/Instruction Authored Date: [id number] [facility] *[facility] Hrt Vas Off Clinical Summary Name NAUN MARTIN Age 77 Years 1945 PCP Rahat GERBER, Gaye Macias PCP Visit Date 06/09/2022 11:03:00 Additional Instructions: Scheduled Appointments?? Future Appointments ?[facility]??Hrt??Vas??Diag ?Phone:??--?Fax:??-- ?Appt. Date:??07/08/2022?10:00 AM ?Scheduled Provider:??[facility] [place] ?*[facility]??Hrt??Vas??Off ?[address],??[place],??[address] ?Phone:??--?Fax:??-- ?Appt. Date:??07/14/2022?9:30 AM ?Scheduled Provider:??Carlton BARRERA , Savanah Horner ?*[facility]??Hrt??Vas??Off ?[address],??[place],??[address] ?Phone:??--?Fax:??-- ?Appt. Date:??07/21/2022?10:00 AM ?Scheduled Provider:??Merced Antunez MD Follow-Up Instructions ?? With: Address: When: Merced Antunez [address] [facility] [place] [address] [facility] (1) 07/21/2022 10:00 AM Diagnosis Medications: Please continue your medications [...] Allergy; Nuts; Mold; Latex; Horses; Dust; Dogs; [place]; Contrast Dye; Cats; Adhesive Bandage; Biaxin XL; Bactrim; Tylenol; Levaquin; Tums; Cefzil; Fosamax; Cleocin T; Keflex; Benadryl, Topical; shellfish; caffeine; aspirin; metoprolol; sulfADIAZINE; penicillin; erythromycin; clindamycin; tetracycline; doxycycline; ibuprofen; codeine; atenolol Medications Given This Visit Future Orders ?No future orders Vital Signs Height 150 cm Weight 46.3 kg BMI 20.58 kg/m2 Blood Pressure 124 mm Hg/68 mm Hg Temperature Pulse Rate 91 bpm Respiratory Rate 02 Sat Mode of Delivery 99 %/ You can now view a summary of your hospital visit from the comfort of your home through a free online portal called [employer]. [employer] is a website that allows you to securely view your medical information including discharge summary, medications and follow-up visits. ??You can alsosend a secure electronic message to your doctor???s office to request appointments, renew medications or just ask a question. You can enroll at [email or web address] or register during your next office visit. [...] primary care provider, you may find a [facility] provider by calling [facility] [employer] Link at [phone]. For information about the plan of care [...] Care Team Personnel Name: Yin Hsu Position: [facility] Onco RN Member Role: Primary Care Nurse Name: Gaye Giang MD Position: [facility] Primary Care Physician Member Role: PCP Address: Address: [address] [place] [address] Family Medicine [address] Name: Consuelo Louis RN Position: [facility] RN Member Role: Primary Care Nurse Name: Cherry Olsen MD Position: [facility] ROAD GRADER MD Member Role: Lifetime ROAD GRADER Physician Address: Address: [address] [place] [address] Women's Health Fibreglass Lay Up Worker - [place], [place] [address] Name: Maeve Jones RN Position: S RN Member Role: Primary Care Nurse Care Team Related Persons Name: MEG MARTIN Address: [address] [address] Name: JAKE RODRIGUES Address: [place] [address]
--- OUTSIDE RECORDS SUMMARY | 2023-05-02 12:23 | XMS_ITS | Continuity of Care Document ---
Author Name Unknown Organization [facility] Address [address] [address]- Care Team Providers Care Oil Mixer Name Role Phone Rahat GERBER, Gaye Macias Primary Care Physician [place] [facility] [place] 07/21/22 - 07/28/22 [facility] [address] [address]- Attending Physician: Harmony GERBER, Merced Denny Admitting [...] rash Active Cats Active Contrast Dye Active [place] Active Dogs Active Dust Active Horses Active [...] Instructions Replace Required Details, Route to PharmacyElectronically, [facility][id number], 150, c... Start Date: 06/24/22 Status: Ordered lisinopril 5 mg oral tablet 5 mg, 1, tablet, By Mouth, Daily, new start 01/22/22, # 30 tablet, Refills 2, Tot. Refills 2, Maintenance, 01/22/22 15:19:00 EDT, Route to Pharmacy Electronically, [facility] #[id number], Partialfill upon patient request if the prescription [...] oldest [Reference Range]: 1 Height 150 cm (07/21/22 10:10 AM) Weight 46.1 kg (07/21/22 10:10 AM) Oxygen Saturation [94-100 %] 100 % (07/21/22 10:10 AM) Pulse Rate [55-90 bpm] 83 bpm (07/21/22 10:10 AM) Body Mass Index [18.5-24.99 kg/m2] 20.49 kg/m2 (07/21/22 10:10 AM) Blood Pressure [90-138/55-84 mm Hg] 138/ 71mm Hg (07/21/22 10:10 AM) Mode of Delivery (Oxygen) Room air (07/21/22 10:10 AM) Blood pressure sites Arm, left (07/21/22 10:10 AM) Weight Obtained Via Standing scale (07/21/22 10:10 AM) Social History Social History Type Response Smoking Status Never (less than 100 in lifetime) entered on: 05/30/19 Sex Note * Sarina Rios: PERFORM, SIGN, VERIFY Event Display: Patient Education/Instruction Authored Date: [facility] *[facility] Hrt Vas Off Clinical Summary Name NAUN MARTIN Age 77 Years 1945 PCP Rahat GERBER, Gaye Macias PCP Visit Date 07/21/2022 09:43:00 Additional Instructions: Scheduled Appointments?? Future Appointments ?*Byst??Fam??Med??[facility] ?[address],??[address] ?Phone:??--?Fax:??-- ?Appt. Date:??07/29/2022?10:00 AM ?Scheduled Provider:??Rahat GERBER , Gaye Macias Follow-Up Instructions ?? With: Address: When: Merced Vergarajarvis [address] [place] [address] [place] [address] Business (0) , only if needed Diagnosis Medications: Please continue your medications until [...] Allergy; Nuts; Mold; Latex; Horses; Dust; Dogs; [place]; Contrast Dye; Cats; Adhesive Bandage; Biaxin XL; Bactrim; Tylenol; Levaquin; Augmentin; Tums; Cefzil; Fosamax; Cleocin T; Keflex; Benadryl, Topical; shellfish; sulfa drugs; caffeine; predniSONE;aspirin; metoprolol; sulfADIAZINE; penicillin; amoxicillin; erythromycin; clindamycin; tetracycline; doxycycline; ibuprofen; codeine; atenolol Medications Given This Visit Future Orders ?No future orders Vital Signs Height 150 cm Weight 46.1 kg BMI 20.49 kg/m2 Blood Pressure 138 mm Hg/71 mm Hg Temperature Pulse Rate 83 bpm Respiratory Rate 02 Sat Mode of Delivery 100 %/Room air You can now view a summary of your hospital visit from the comfort of your home through a free online portal called [employer]. [employer] is a website that allows you to securely view your medical information including discharge summary, medications and follow-up visits. ??You can alsosend a secure electronic message to your doctor???s office to request appointments, renew medications or just ask a question. You can enroll at [email or web address] or register during your next office visit. [...] primary care provider, you may find a [facility] provider by calling [facility] [employer] Link at [phone]. For information about the plan of care including goals and instructions for your diagnosis, please see the patient education orders section of this document. Patient Education Materials?? The content of this educational material or handout may have been modified, supplemented, or adapted from its original content and format to support your individualized medical care. Patient Care team information Care Team Personnel Name: Shadi Yin Position: [facility] Onco RN Member Role: Primary Care Nurse Name: Gaye Giang MD Position: [facility] Primary Care Physician Member Role: PCP Address: Address: [address] [place] [address] Name: Consuelo Louis RN Position: [facility] RN Member Role: Primary Care Nurse Name: Cherry Olsen MD Position: [facility] MOLD MACHINE OPERATOR MD Member Role: Lifetime MOLD MACHINE OPERATOR Physician Address: Address: [address] [place] [address]'s [facility] Video Game Tester - [address] Name: Maeve Jones RN Position: [facility] RN Member Role: Primary Care Nurse Care Team Related Persons Name: MEG MARTIN Address: [address] [address] Name: JAKE RODRIGUES Address: [place] [address]
--- OUTSIDE RECORDS SUMMARY | 2023-05-02 12:23 | XMS_ITS | Continuity of Care Document ---
Author Name Unknown Organization [facility] Address [address] [place] [address]- Care Team Providers Care Aircraft Communicator Name Role Phone Yolanda Fischer MD Primary Care Physician [place] [facility] [place] 11/08/20 - [facility] [address] [place] [address]- Allergies, Adverse Reactions, Alerts Substance Reaction Severity [...] rash Active Cats Active Contrast Dye Active [place] Active Dogs Active Dust Active Horses Active [...] stasis(Confirmed) Active 1Dr Melo rheum 2Dr Soco hand riveter multiple food and drug allergies 3[facility] 4colonoscopy 06/21/2019 removed 4 polyps. if positive for ca will need colon resection Social History Social History Type Response Smoking Status Never (less than 100 in lifetime) entered on: 05/30/19 Sex
--- OUTSIDE RECORDS SUMMARY | 2023-05-02 12:23 | XMS_ITS | Continuity of Care Document ---
Author Name Unknown Organization [facility] Address [address] [facility] [place] [address]- Care Team Providers Care Machine Fixer Name Role Phone Yolanda iFscher MD Primary Care Physician Encounter 09/07/19 - 11/18/19 [facility] [address], [facility] [address] [place] [address]- [phone] Attending Physician: Yolanda Fischer MD Admitting Physician: [...] rash Active Cats Active Contrast Dye Active [place] Active Dogs Active Dust Active Horses Active [...] stasis(Confirmed) Active 1Dr Melo rheum 2Dr Soco side sawyer multiple food and drug allergies 3[facility] 4colonoscopy 06/21/2019 removed 4 polyps. if positive for ca will need colon resection Social History Social History Type Response Smoking Status Never (less than 100 in lifetime) entered on: 05/30/19 Sex Female
--- NOTE | 2023-05-02 12:35 | PC.NURSE ---
Pt HR 100 when resting, went to 114 when talking. Pt aware, reports she has an appt for cardio to go over recent echo. provider aware.
--- NOTE | 2023-05-02 13:07 | ED.GENADULT ---
HPI - General Adult General Chief complaint: Skin/Abscess/Foreign Body Stated complaint: R foot cellulitis? Time Seen by Provider: 05/02/23 12:34 Source: patient Mode of arrival: ambulatory History of Present Illness HPI narrative: patient is a 78-year-old female who presents to the emergency department for evaluation of redness to the right lateral malleolus. She reports onset 4 days ago. She has bilateral pedal edema, she states that there is no increased from her baseline, and does admit that she is not compliant with wearing her compression stockings. She denies any injury to the foot or ankle to suggest a possible fracture. The redness has been increasing. She does have pain when she ambulates but states that it is bearable, and she is able to fully range the ankle. She does report a history of cellulitis last year to this extremity as well which did presents similarly to this. Related Data Home Medications Medication Instructions Recorded Confirmed calcium carbonate 600 mg-vitamin 1 tab PO DAILY 07/31/21 12/03/21 D3 5 mcg (200 unit) tablet epinephrine 0.3 mg/0.3 mL 0.3 ea IM ONCE PRN Anaphylaxis 12/03/21 12/03/21 injection, auto-injector omeprazole 20 mg tablet,delayed 20 mg PO DAILY 12/03/21 12/03/21 release Previous Rx's Medication Instructions Recorded linezolid 600 mg tablet 600 mg PO Q12H 10 days #20 tabs 05/03/22 linezolid 600 mg tablet 600 mg PO BID #14 tabs 05/02/23 Allergies Allergy/AdvReac Type Severity Reaction Status Date / Time Iodinated Contrast Media Allergy Severe Rash Verified 05/02/23 10:56 [IV CONTRAST] amoxicillin [AMOXICILLIN] Allergy Intermediate HIVES Verified 05/02/23 10:56 aspirin [ASA] Allergy Intermediate HIVES Verified 05/02/23 10:56 atenolol [ATENOLOL] Allergy Intermediate HIVES Verified 05/02/23 10:56 caffeine [CAFFEINE] Allergy Intermediate HIVES Verified 05/02/23 10:56 cat dander [CATS] Allergy Intermediate HIVES Verified 05/02/23 10:56 cefprozil [From CEFZIL] Allergy Intermediate HIVES Verified 05/02/23 10:56 cephalexin [From KEFLEX] Allergy Intermediate HIVES Verified 05/02/23 10:56 clarithromycin [From BIAXIN] Allergy Intermediate HIVES Verified 05/02/23 10:56 clindamycin [From CLEOCIN] Allergy Intermediate HIVES Verified 05/02/23 10:56 codeine [CODEINE] Allergy Intermediate HIVES Verified 05/02/23 10:56 corn [CORN] Allergy Intermediate HIVES Verified 05/02/23 10:56 diphenhydramine Allergy Intermediate HIVES Verified 05/02/23 10:56 [From BENADRYL] dog dander [DOGS] Allergy Intermediate HIVES Verified 05/02/23 10:56 egg [EGGS] Allergy Intermediate HIVES Verified 05/02/23 10:56 erythromycin base Allergy Intermediate ANAPHYLAXIS Verified 05/02/23 10:56 [From ERYTHROCIN] fentanyl [FENTANYL] Allergy Intermediate HIVES Verified 05/02/23 10:56 ghosh [GHOSH] Allergy Intermediate HIVES Verified 05/02/23 10:56 horse dander [HORSE DANDER] Allergy Intermediate HIVES Verified 05/02/23 10:56 ibuprofen [IBUPROFEN] Allergy Intermediate HIVES Verified 05/02/23 10:56 insect venom [MOSQUITO] Allergy Intermediate HIVES Verified 05/02/23 10:56 latex [LATEX] Allergy Intermediate HIVES Verified 05/02/23 10:56 levofloxacin [From LEVAQUIN] Allergy Intermediate HIVES Verified 05/02/23 10:56 metoprolol [METOPROLOL] Allergy Intermediate HIVES Verified 05/02/23 10:56 mite-Dermatophagoides Allergy Intermediate HIVES Verified 05/02/23 10:56 farinae, florentin [DUST MITES] mold [MOLD] Allergy Intermediate HIVES Verified 05/02/23 10:56 nut - unspecified [NUTS] Allergy Intermediate HIVES Verified 05/02/23 10:56 Penicillins [PCN] Allergy Intermediate Anaphylaxis Verified 05/02/23 10:56 soy [SOY] Allergy Intermediate HIVES Verified 05/02/23 10:56 Sulfa (Sulfonamide Allergy Intermediate HIVES Verified 05/02/23 10:56 Antibiotics) [SULFA (SULFONAMIDE ANTIBIOTICS)] sulfamethoxazole Allergy Intermediate HIVES Verified 05/02/23 10:56 [From BACTRIM] tetracycline [TETRACYCLINE] Allergy Intermediate HIVES Verified 05/02/23 10:56 tree and shrub pollen [TREE] Allergy Intermediate HIVES Verified 05/02/23 10:56 trimethoprim [From BACTRIM] Allergy Intermediate HIVES Verified 05/02/23 10:56 wheat [WHEAT] Allergy Intermediate HIVES Verified 05/02/23 10:56 chicken derived Allergy Mild Unknown Verified 05/02/23 10:56 clavulanic acid [Augmentin] Allergy Unknown Unknown Verified 05/02/23 10:56 mannitol [Reclast] Allergy Unknown Unknown Verified 05/02/23 10:56 zoledronic acid [Reclast] Allergy Unknown Unknown Verified 05/02/23 10:56 prednisone Allergy Rash Verified 05/02/23 10:56 shellfish derived Allergy Rash Verified 05/02/23 10:56 doxycycline AdvReac Severe Rash Verified 05/02/23 10:56 acetaminophen AdvReac Rash Verified 05/02/23 10:56 banana AdvReac Rash Verified 05/02/23 10:56 DUST Allergy Intermediate HIVES Uncoded 08/20/21 10:48 FRUIT Allergy Intermediate HIVES Uncoded 08/20/21 10:48 MADRIBON Allergy Intermediate HIVES Uncoded 08/20/21 10:48 VEGETABLES,FRESH Allergy Intermediate HIVES Uncoded 08/20/21 10:48 Ivp Dye- Omnipaque AdvReac Unknown rash Uncoded 08/20/21 10:48 Review of Systems Review of Systems: Yes all other systems are reviewed and are negative PMFSH Past Medical History Attestation statement: The following information was validated with the patient. Source: old records reviewed Medical History Dysphagia Skin cancer of forehead Skin cancer Personal history of COVID-19 Lower extremity edema Hx of sinusitis Osteoporosis Fibromyalgia Left bundle branch block (LBBB) GERD (gastroesophageal reflux disease) Surgical History Hx of section History of appendectomy Hx of hysterectomy History of esophagogastroduodenoscopy (EGD) Hx of colonoscopy Family History Family History Father Bladder cancer Social History Social History Household Members: Spouse Housing: Apartment Do you presently have visiting nurse or other home services: No Alcohol intake: never Patient Tobacco Use Status: Never used Tobacco Smoked in Last 30 Days: No Use of substances other than those prescribed or required for medical reasons: No Advance Directives: Yes Advance Directives on File: Yes Advance Directives Date on File: 08/05/21 service: No Current occupational status: retired Physical Exam ED Vital Signs: Vital Signs - 24 hr 05/02/23 10:51 05/02/23 12:18 Temperature 97.0 F Pulse Rate 114 H 100 Respiratory Rate 18 Blood Pressure 147/75 H Pulse Oximetry 99 Oxygen Delivery Method Room Air BMI result Body Mass Index 21.0 Appearance: Alert.?Oriented to person, place and time. No acute distress.?Normal affect. Eyes: Pupils equal, round and reactive to light.? ENT: Pharynx normal.?? Neck: Normal inspection.? Neck supple.?? CVS: Heart sounds normal. Normal heart rate and rhythm.? Pulses normal.?? Respiratory: No respiratory distress.? Lung sounds clear to auscultation bilaterally?? Skin: Skin warm and dry.? Normal skin color.? no rashes or lesions. Extremities: Bilateral 2+ pitting pedal edema Right lateral malleolus with mild blanchable erythema, no warmth. Full AROM to the right joint. 2+ DP/PT pulse bilaterally.? No calf ttp? Neuro: Moves all extremities spontaneously. Sensation intact bilaterally. Ambulates with normal steady gait. Medical Decision Making Medical Decision Making MDM Narrative: Patient is a 78-year-old female with past medical history of fibromyalgia, left bundle-branch block, osteoporosis, osteoarthritis, venous insufficiency who presents to the emergency department for evaluation of redness to the right lateral malleolus. Atraumatic in nature, have low suspicion for any fracture dislocation. Full AROM is present there is no warmth nor fevers or chills, I have a low suspicion for any septic joint, and less likely gouty arthritis. The extremity is neurovascularly intact distally, and she is able to weightbear without difficulty. No calf tenderness upon palpation, negative Homans sign, less likely DVT, Wells negative. Concern at this time for an early cellulitis especially given history, discussed with patient initial treatment with oral antibiotics, she unfortunately has extensive allergies to antibiotics including cephalosporins, PCN, Bactrim, tetracycline, quinolones. prior episodes of cellulitis have been treated with Tigist nasal id. Advised patient we will treat with course at this time and recommended close outpatient follow-up with her primary care provider within 2-3 days. Discussed worrisome signs and symptoms that would warrant re-evaluation in the emergency department. All questions were answered. Stable for discharge. Differential Diagnosis Differential Diagnoses: The differential diagnosis associated with the presentation includes Admission/Observation Consideration of admission/observation: Escalation of care including admission/observation considered ( see narrative above) External Record Review External record reviewed: Inpatient record and Outpatient record Prescription Management I considered prescription management with: Antibiotic Discharge Plan Discharge Clinical Impression: Cellulitis Patient Disposition: Home, Self-Care Instructions: Cellulitis (ED) Additional Instructions: be sure to rest, apply ice to the area for 10-15 minutes 3 to 4 times a day. Elevate your legs when possible and wear your compression stockings. Follow-up with your primary care provider within 2-3 days. You may return back to emergency department with any new or worsening symptoms or concerns. Prescriptions: New linezolid 600 mg tablet 600 mg PO BID Qty: 14 0RF No Action linezolid 600 mg tablet 600 mg PO Q12H 10 Days Qty: 20 0RF calcium carbonate-vitamin D3 600 mg-5 mcg (200 unit) Tablet 1 tab PO DAILY epinephrine 0.3 mg/0.3 mL auto-injector 0.3 ea IM ONCE PRN (Reason: Anaphylaxis) omeprazole 20 mg Tablet,Delayed Release (Dr/Ec) 20 mg PO DAILY Referrals: Ruma Bravo MD [Primary Care Provider] -
== END 2023-05-02 13:38 | disposition home or self-care (01) ==
PROVIDERS: Emergency Provider Emergency Medicine; PCP Pediatrics
DX: L03.115 Cellulitis of right lower limb (principal); L03.116 Cellulitis of left lower limb; R60.0 Localized edema; Z79.899 Other long term (current) drug therapy
CPT/HCPCS: 99284

== ENCOUNTER 2023-05-04 10:30 | Emergency (ER) | payer MEDICARE, SELFPAY ==
--- NOTE | ~2023-05-04 | XR_ITS ---
EXAMINATION: XR ANKLE, RIGHT CLINICAL INFORMATION: Lateral tenderness. COMPARISON: Right ankle films dated 05/03/2022. TECHNIQUE: AP, lateral, and mortise views of the right ankle. FINDINGS: Mild soft tissue swelling about the ankle, most prominent along the lateral malleolus. No acute fracture or dislocation is noted. No significant ankle joint effusion is seen. No joint calcifications or radiopaque foreign bodies in the soft tissues. Vascular calcification seen in the lower leg. Diffuse osteopenia. XR/XR ankle RT 2V IMPRESSION: * Mild soft tissue swelling about the ankle. No acute fracture or dislocation. * Diffuse osteopenia.
[2023-05-04 11:14] VITALS: BP 140/73; PULSE 87; RESP 18; TEMP 36.3; O2SAT 99; BMI 21.5
--- NOTE | 2023-05-04 11:18 | ED.GENADULT ---
HPI - General Adult General Chief complaint: General Medical Stated complaint: Back pain/Hip pain-R foot Cellulitis? Time Seen by Provider: 05/04/23 14:45 Source: patient Mode of arrival: ambulatory Limitations: no limitations History of Present Illness HPI narrative: Patient is a 78-year-old female presenting to the emergency department for evaluation of right ankle erythema and tenderness. Patient states symptoms began on the evening of 04/28, came to the ED for evaluation on 05/02 and was prescribed linezolid for early cellulitis. States that she took one dose of the linezolid and developed diffuse hives, so did not take any additional doses. Denies any swelling of lips or tongue, denies any shortness of breath or difficulty breathing. States all hives have fully resolved. Reports that she recently had callouses removed from her right foot by the food expeditor and has a bruise to the distal aspect of her dorsal foot related to this. states that he feels the area is less erythematous than it was at previous visit. She also complains of mild low back pain after cleaning this morning, but states she did not take any medications at home due to her extensive allergies. MD complaint: right ankle pain, lower back pain Onset (ago): day(s) Location: back, right and lower extremity Radiation: non-radiation Severity: mild Quality: aching Associated symptoms: denies other symptoms Treatments prior to arrival: other Related Data Home Medications Medication Instructions Recorded Confirmed calcium carbonate 600 mg-vitamin 1 tab PO DAILY 07/31/21 12/03/21 D3 5 mcg (200 unit) tablet epinephrine 0.3 mg/0.3 mL 0.3 ea IM ONCE PRN Anaphylaxis 12/03/21 12/03/21 injection, auto-injector omeprazole 20 mg tablet,delayed 20 mg PO DAILY 12/03/21 12/03/21 release Previous Rx's Medication Instructions Recorded linezolid 600 mg tablet 600 mg PO Q12H 10 days #20 tabs 05/03/22 linezolid 600 mg tablet 600 mg PO BID #14 tabs 05/02/23 Allergies Allergy/AdvReac Type Severity Reaction Status Date / Time Iodinated Contrast Media Allergy Severe Rash Verified 05/04/23 11:18 [IV CONTRAST] amoxicillin [AMOXICILLIN] Allergy Intermediate HIVES Verified 05/04/23 11:18 aspirin [ASA] Allergy Intermediate HIVES Verified 05/04/23 11:18 atenolol [ATENOLOL] Allergy Intermediate HIVES Verified 05/04/23 11:18 caffeine [CAFFEINE] Allergy Intermediate HIVES Verified 05/04/23 11:18 cat dander [CATS] Allergy Intermediate HIVES Verified 05/04/23 11:18 cefprozil [From CEFZIL] Allergy Intermediate HIVES Verified 05/04/23 11:18 cephalexin [From KEFLEX] Allergy Intermediate HIVES Verified 05/04/23 11:18 clarithromycin [From BIAXIN] Allergy Intermediate HIVES Verified 05/04/23 11:18 clindamycin [From CLEOCIN] Allergy Intermediate HIVES Verified 05/04/23 11:18 codeine [CODEINE] Allergy Intermediate HIVES Verified 05/04/23 11:18 corn [CORN] Allergy Intermediate HIVES Verified 05/04/23 11:18 diphenhydramine Allergy Intermediate HIVES Verified 05/04/23 11:18 [From BENADRYL] dog dander [DOGS] Allergy Intermediate HIVES Verified 05/04/23 11:18 egg [EGGS] Allergy Intermediate HIVES Verified 05/04/23 11:18 erythromycin base Allergy Intermediate ANAPHYLAXIS Verified 05/04/23 11:18 [From ERYTHROCIN] fentanyl [FENTANYL] Allergy Intermediate HIVES Verified 05/04/23 11:18 ghosh [GHOSH] Allergy Intermediate HIVES Verified 05/04/23 11:18 horse dander [HORSE DANDER] Allergy Intermediate HIVES Verified 05/04/23 11:18 ibuprofen [IBUPROFEN] Allergy Intermediate HIVES Verified 05/04/23 11:18 insect venom [MOSQUITO] Allergy Intermediate HIVES Verified 05/04/23 11:18 latex [LATEX] Allergy Intermediate HIVES Verified 05/04/23 11:18 levofloxacin [From LEVAQUIN] Allergy Intermediate HIVES Verified 05/04/23 11:18 metoprolol [METOPROLOL] Allergy Intermediate HIVES Verified 05/04/23 11:18 mite-Dermatophagoides Allergy Intermediate HIVES Verified 05/04/23 11:18 farinae, florentin [DUST MITES] mold [MOLD] Allergy Intermediate HIVES Verified 05/04/23 11:18 nut - unspecified [NUTS] Allergy Intermediate HIVES Verified 05/04/23 11:18 Penicillins [PCN] Allergy Intermediate Anaphylaxis Verified 05/04/23 11:18 soy [SOY] Allergy Intermediate HIVES Verified 05/04/23 11:18 Sulfa (Sulfonamide Allergy Intermediate HIVES Verified 05/04/23 11:18 Antibiotics) [SULFA (SULFONAMIDE ANTIBIOTICS)] sulfamethoxazole Allergy Intermediate HIVES Verified 05/04/23 11:18 [From BACTRIM] tetracycline [TETRACYCLINE] Allergy Intermediate HIVES Verified 05/04/23 11:18 tree and shrub pollen [TREE] Allergy Intermediate HIVES Verified 05/04/23 11:18 trimethoprim [From BACTRIM] Allergy Intermediate HIVES Verified 05/02/23 10:56 wheat [WHEAT] Allergy Intermediate HIVES Verified 05/02/23 10:56 chicken derived Allergy Mild Unknown Verified 05/04/23 11:18 clavulanic acid [Augmentin] Allergy Unknown Unknown Verified 05/04/23 11:18 mannitol [Reclast] Allergy Unknown Unknown Verified 05/04/23 11:18 zoledronic acid [Reclast] Allergy Unknown Unknown Verified 05/04/23 11:18 linezolid Allergy Hives Verified 05/04/23 11:19 prednisone Allergy Rash Verified 05/04/23 11:18 shellfish derived Allergy Rash Verified 05/04/23 11:18 doxycycline AdvReac Severe Rash Verified 05/04/23 11:18 acetaminophen AdvReac Rash Verified 05/04/23 11:18 banana AdvReac Rash Verified 05/04/23 11:18 DUST Allergy Intermediate HIVES Uncoded 08/20/21 10:48 FRUIT Allergy Intermediate HIVES Uncoded 08/20/21 10:48 MADRIBON Allergy Intermediate HIVES Uncoded 08/20/21 10:48 VEGETABLES,FRESH Allergy Intermediate HIVES Uncoded 08/20/21 10:48 Ivp Dye- Omnipaque AdvReac Unknown rash Uncoded 08/20/21 10:48 Review of Systems Review of Systems: As per HPI. Yes all other systems are reviewed and are negative PMFSH Past Medical History Medical History Dysphagia Skin cancer of forehead Skin cancer Personal history of COVID-19 Lower extremity edema Hx of sinusitis Osteoporosis Fibromyalgia Left bundle branch block (LBBB) GERD (gastroesophageal reflux disease) Surgical History Hx of section History of appendectomy Hx of hysterectomy History of esophagogastroduodenoscopy (EGD) Hx of colonoscopy Family History Family History Father Bladder cancer Social History Social History Household Members: Spouse Housing: Apartment Do you presently have visiting nurse or other home services: No Alcohol intake: never Patient Tobacco Use Status: Never used Tobacco Advance Directives: Yes Advance Directives on File: Yes Advance Directives Date on File: 08/05/21 service: No Current occupational status: retired Physical Exam ED Vital Signs: Vital Signs - 24 hr 05/04/23 11:14 05/04/23 16:05 Temperature 97.3 F 97.9 F Pulse Rate 87 92 Respiratory Rate 18 18 Blood Pressure 140/73 H 141/66 H Pulse Oximetry 99 100 Oxygen Delivery Method Room Air Room Air BMI result Body Mass Index 21.5 Back/Spine/Pelvis Thoracic/Lumbar Spine: thoracic and lumbar spine normal to inspection, thoraco-lumbar ROM normal, straight leg raise negative bilaterally, pain with thoraco-lumbar ROM, paraspinal muscle tenderness bilaterally in the upper lumbar, No thoracic spinal tenderness and No lumbar spinal tenderness Extrem Other: Right lower extremity: ankle Details: tenderness Location: of the lateral malleolus, edema Details: non-pitting (mild), normal ROM and other (erythema, primarily over lateral malleolus) and foot (see photos) Details: ecchymosis dorsal distal and vascular exam Details: dorsalis pedis pulse present and posterior tibial pulse present Course Course Course Narrative: This is a rapid medical exam. Deferred additional HPI, ROS, PE to primary provider. 78 yo female being treated for cellulitis of the foot with linezolid here with concern for hives ?allergic reaction, also low back pain. Medical Decision Making Medical Decision Making MDM Narrative: Patient is a 78-year-old female presenting to the emergency department for evaluation of right ankle erythema and tenderness. On exam patient is awake, A+Ox3, VS WNL, afebrile, normal neurological exam without focal deficits, physical exam findings as above. Given reported symptoms and physical exam findings, initial differential includes right ankle cellulitis versus contusion versus fracture. Do not feel physical exam findings are consistent with cellulitis. X-ray notable for soft tissue swelling without acute fracture. My interpretation is in agreement with the radiologist's interpretation. Low suspicion for/unlikely DVT, Wells negative. Feel symptoms are likely related to mild contusion from having calluses removed. Advised patient to keep foot elevated while at rest, alternate applying ice and heat for and 15 minutes at a time several times daily. Offered patient treatment for low back pain with lidocaine patches or diclofenac gel. Patient states that she is apprehensive to use lidocaine patches as she has allergies to many adhesives, states she has previously attempted to fill a prescription for diclofenac but found it was too expensive. Discussed with patient that she can try to find a small tube of generic diclofenac, advised patient to spot test a small amount prior to full use to ensure she does not have an allergic reaction to this. She is agreeable to using intermittent application of ice to treat her back pain. No red flag findings concerning for cauda equina, spinal epidural abscess, or cord compression. Differential Diagnosis Differential Diagnoses: The differential diagnosis associated with the presentation includes As per MDM. Independent Interpretation I performed an independent interpretation of an: Plain X-Ray Interpretation: No evidence of right ankle fracture Radiology Impression Discussion of test interpretation with radiology: I have reviewed the radiologist's reading. Radiologist Impression: XR/XR ankle RT 2V IMPRESSION: * Mild soft tissue swelling about the ankle. No acute fracture or dislocation. * Diffuse osteopenia. Independent Historian Clinical information obtained from an independent historian. History obtained from or confirmed by: Spouse External Record Review External record reviewed: Inpatient record, Office record and Outpatient record Prescription Management I considered prescription management with: Pain Medication Discharge Plan Discharge Clinical Impression: Contusion of ankle, right, Low back strain Patient Disposition: Home, Self-Care Instructions: Low Back Strain (ED), Acute Low Back Pain (ED), Contusion in Adults (ED), R.I.C.E. Treatment (ED), Cold Compress or Soak (ED) Additional Instructions: You were evaluated in the emergency department today with complaint of right ankle pain and redness as well as low back pain. Your evaluation today does not show evidence of cellulitis. You should notify your primary care provider of the reaction that you had to linezolid. Your pain is likely related to a minor contusion from having calluses removed. You can intermittently apply ice and warm compresses to your ankle for 10-15 minutes at a time several times daily, using caution not to apply ice directly the skin. You can also try over the counter diclofenac gel, if you are able to find a generic version, it may be more affordable. You were also evaluated for low back pain which is likely a muscle strain. You can apply ice to the area for 10-15 minutes at a time several times daily, being sure not to apply ice directly to skin. Please assess your ankle daily for signs of increasing redness, swelling, redness streaking up your leg, or drainage. If you develop any of the symptoms or a fever, chills, body aches please return to the emergency department for further evaluation. You should also return if you develop worsening back pain, new weakness, numbness, tingling to your legs, difficulty walking, difficulty controlling your bladder or bowels, or any other concerning symptoms. You should follow-up with your primary care provider this week. Prescriptions: No Action linezolid 600 mg tablet 600 mg PO Q12H 10 Days Qty: 20 0RF calcium carbonate-vitamin D3 600 mg-5 mcg (200 unit) Tablet 1 tab PO DAILY epinephrine 0.3 mg/0.3 mL auto-injector 0.3 ea IM ONCE PRN (Reason: Anaphylaxis) omeprazole 20 mg Tablet,Delayed Release (Dr/Ec) 20 mg PO DAILY linezolid 600 mg tablet 600 mg PO BID Qty: 14 0RF
[2023-05-04 16:05] VITALS: BP 141/66; PULSE 92; RESP 18; TEMP 36.6; O2SAT 100
== END 2023-05-04 17:43 | disposition home or self-care (01) ==
PROVIDERS: Emergency Provider Emergency Medicine; PCP Pediatrics
DX: S90.01XA Contusion of right ankle, initial encounter (principal); S39.012A Strain of muscle, fascia and tendon of lower back, initial encounter; X58.XXXA Exposure to other specified factors, initial encounter; Y93.9 Activity, unspecified; Y92.9 Unspecified place or not applicable; Y99.9 Unspecified external cause status
CPT/HCPCS: 73600; 99283

== ENCOUNTER 2023-05-26 14:50 | Outpatient (AMB) | payer MEDICARE, SELFPAY ==
--- NOTE | 2023-05-26 14:53 | A.OFFVIS_ITS ---
Intake Vital Signs 05/26/23 15:08 Height 4 ft 10.5 in Weight 105 lb 4 oz BMI 21.6 BP 137/65 Blood Pressure Location Lt brachial Position Sitting Pulse 104 H Intake Visit Reasons: hemorrhoids Intake Note: Patient is seen in office for evaluation and treatment of hemorrhoids. 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 Accompanied by: Self / Same As Patient Allergies Iodinated Contrast Media [IV CONTRAST] Allergy (Severe, Verified 05/26/23 15:08) Rash amoxicillin [AMOXICILLIN] Allergy (Intermediate, Verified 05/26/23 15:08) HIVES aspirin [ASA] Allergy (Intermediate, Verified 05/26/23 15:08) HIVES atenolol [ATENOLOL] Allergy (Intermediate, Verified 05/26/23 15:08) HIVES caffeine [CAFFEINE] Allergy (Intermediate, Verified 05/26/23 15:08) HIVES cat dander [CATS] Allergy (Intermediate, Verified 05/26/23 15:08) HIVES cefprozil [From CEFZIL] Allergy (Intermediate, Verified 05/26/23 15:08) HIVES cephalexin [From KEFLEX] Allergy (Intermediate, Verified 05/26/23 15:08) HIVES clarithromycin [From BIAXIN] Allergy (Intermediate, Verified 05/26/23 15:08) HIVES clindamycin [From CLEOCIN] Allergy (Intermediate, Verified 05/26/23 15:08) HIVES codeine [CODEINE] Allergy (Intermediate, Verified 05/26/23 15:08) HIVES corn [CORN] Allergy (Intermediate, Verified 05/26/23 15:08) HIVES diphenhydramine [From BENADRYL] Allergy (Intermediate, Verified 05/26/23 15:08) HIVES dog dander [DOGS] Allergy (Intermediate, Verified 05/26/23 15:08) HIVES egg [EGGS] Allergy (Intermediate, Verified 05/26/23 15:08) HIVES erythromycin base [From ERYTHROCIN] Allergy (Intermediate, Verified 05/26/23 15:08) ANAPHYLAXIS fentanyl [FENTANYL] Allergy (Intermediate, Verified 05/26/23 15:08) HIVES ghosh [GHOSH] Allergy (Intermediate, Verified 05/26/23 15:08) HIVES horse dander [HORSE DANDER] Allergy (Intermediate, Verified 05/26/23 15:08) HIVES ibuprofen [IBUPROFEN] Allergy (Intermediate, Verified 05/26/23 15:08) HIVES insect venom [MOSQUITO] Allergy (Intermediate, Verified 05/26/23 15:08) HIVES latex [LATEX] Allergy (Intermediate, Verified 05/26/23 15:08) HIVES levofloxacin [From LEVAQUIN] Allergy (Intermediate, Verified 05/26/23 15:08) HIVES metoprolol [METOPROLOL] Allergy (Intermediate, Verified 05/26/23 15:08) HIVES mite-Dermatophagoides farinae, florentin [DUST MITES] Allergy (Intermediate, Verified 05/26/23 15:08) HIVES mold [MOLD] Allergy (Intermediate, Verified 05/26/23 15:08) HIVES nut - unspecified [NUTS] Allergy (Intermediate, Verified 05/26/23 15:08) HIVES Penicillins [PCN] Allergy (Intermediate, Verified 05/26/23 15:08) Anaphylaxis soy [SOY] Allergy (Intermediate, Verified 05/26/23 15:08) HIVES Sulfa (Sulfonamide Antibiotics) [SULFA (SULFONAMIDE ANTIBIOTICS)] Allergy (Intermediate, Verified 05/26/23 15:08) HIVES sulfamethoxazole [From BACTRIM] Allergy (Intermediate, Verified 05/26/23 15:08) HIVES tetracycline [TETRACYCLINE] Allergy (Intermediate, Verified 05/26/23 15:08) HIVES tree and shrub pollen [TREE] Allergy (Intermediate, Verified 05/26/23 15:08) HIVES trimethoprim [From BACTRIM] Allergy (Intermediate, Verified 05/26/23 15:08) HIVES wheat [WHEAT] Allergy (Intermediate, Verified 05/26/23 15:08) HIVES chicken derived Allergy (Mild, Verified 05/26/23 15:08) Unknown clavulanic acid [Augmentin] Allergy (Unknown, Verified 05/26/23 15:08) Unknown mannitol [Reclast] Allergy (Unknown, Verified 05/26/23 15:08) Unknown zoledronic acid [Reclast] Allergy (Unknown, Verified 05/26/23 15:08) Unknown linezolid Allergy (Verified 05/26/23 15:08) Hives prednisone Allergy (Verified 05/26/23 15:08) Rash shellfish derived Allergy (Verified 05/26/23 15:08) Rash doxycycline Adverse Reaction (Severe, Verified 05/26/23 15:08) Rash acetaminophen Adverse Reaction (Verified 05/26/23 15:08) Rash banana Adverse Reaction (Verified 05/26/23 15:08) Rash DUST Allergy (Intermediate, Uncoded 05/26/23 15:08) HIVES FRUIT Allergy (Intermediate, Uncoded 05/26/23 15:08) HIVES MADRIBON Allergy (Intermediate, Uncoded 05/26/23 15:08) HIVES VEGETABLES,FRESH Allergy (Intermediate, Uncoded 05/26/23 15:08) HIVES Ivp Dye- Omnipaque Adverse Reaction (Unknown, Uncoded 05/26/23 15:08) rash Medication List - Last Reconciled 05/26/23 by Tereso Cabezas MD calcium carbonate-vitamin D3 600 mg-5 mcg (200 unit) 1 tab PO DAILY epinephrine 0.3 ea IM ONCE PRN linezolid 600 mg PO Q12H 10 days linezolid 600 mg PO BID lisinopril 5 mg PO DAILY omeprazole 20 mg PO DAILY HPI HPI Comments History of Present Illness Details 78-year-old female patient 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 Loyola in 2021 with a laparoscopic right colectomy. No cancer was identified. Patient subsequently developed intermittent diarrhea and constipation with rectal bleeding. She reports swollen and painful hemorrhoids. She reports pain while passing her bowels and subsequently developing bleeding. She denies any bleeding if she does not have a bowel movement. Bowel movements require a significant amount of straining. She has a prior history of Us's ligation of internal hemorrhoids but the bands needed to be removed because of severe pain. [facility] Medical History Dysphagia Skin cancer of forehead Skin cancer Personal history of COVID-19 Lower extremity edema Hx of sinusitis Osteoporosis Fibromyalgia Left bundle branch block (LBBB) GERD (gastroesophageal reflux disease) Surgical History Hx of right hemicolectomy (01/30/22) Hx of section History of appendectomy Hx of hysterectomy History of esophagogastroduodenoscopy (EGD) Hx of colonoscopy Family History Father Bladder cancer Social History Household Members: Spouse Housing: Apartment Do you presently have visiting nurse or other home services: No Alcohol intake: never Patient Tobacco Use Status: Never used Tobacco Advance Directives Date on File: 08/05/21 service: No Current occupational status: retired Review of Systems Const Denies chills, Denies fever(s), Denies headache(s) and Denies poor appetite ENT Denies dizziness and Denies headache(s) Card Denies chest pain, Denies rapid heart rate, Denies palpitations and Denies slow heart rate Resp Denies chest congestion, Denies cough, Denies pain on inspiration and Denies wheezing GI Denies abdominal pain, Denies bloating, Reports hematochezia, Reports change in stool character, Reports constipation, Reports diarrhea, Denies nausea, Denies vomiting and Denies hematemesis Musc Denies back pain, Denies arthralgias, Denies joint swelling and Denies numbness Skin/Breast Denies change in pigmentation, Denies erythema and Denies rash Neuro Denies dizziness, Denies headache(s) and Denies numbness Psych Denies anxiety and Denies depression Endo Denies palpitations Sincere/Lymph Denies easy bleeding, Denies easy bruising and Denies lymphadenopathy Aller/Immun Denies wheezing Physical Exam Vital Signs: Last Vital Signs Pulse 104 H 05/26/23 15:08 BP 137/65 05/26/23 15:08 BMI result Body Mass Index 21.6 Const General: cooperative, comfortable and well developed Nutritional Appearance: well nourished Orientation/consciousness: patient oriented x3 Eyes Sclerae: sclerae normal EOM: EOMs intact bilaterally Neck Neck: Yes normal visual inspection Resp Effort & Inspection: normal respiratory effort, no cough, no respiratory distress and no stridor Cardio Jugular venous distension: no JVD GI Other: Rectal examination: External examination no erythema, fluctuance, or fistula. External swelling noted but no thrombosis. Digital rectal examination: Tender circumferentially especially in the posterior anal wall. Extremely tight anal sphincter muscles. Unable to pass small finger through anal canal. Unable to palpate above the anal sphincters. Anoscopy: Deferred due to pain Inspection: Yes normal to inspection Palpation (GI): Soft to palpation, nontender, no guarding and not rigid Skin General skin exam: dry skin Rashes: no rashes Neuro General: patient oriented x3 and no focal motor deficits Extrem General: Yes no clubbing, cyanosis or edema Psych Appearance: grossly normal Assessment & Plan Assessment & Plan (1) Anal fissure: Code(s): K60.2 - Anal fissure, unspecified (2) Hemorrhoids that prolapse with straining, but retract spontaneously: Code(s): K64.1 - Second degree hemorrhoids Plan 78-year-old female patient with complaints of rectal pain and bleeding found on examination to have an extremely tight anal sphincter with tenderness in the anal canal suggestive of an anal fissure. Anoscopic examination not possible du e to the pain and tight sphincter. I recommended exam under anesthesia with probable lateral internal sphincterotomy, possible hemorrhoidectomy. After discussion of the procedure, risks, and alternatives, she consents to the surgery. This will be performed as a short-stay surgery. Coding Level of Care Code Est Pt Level 4 (35180) Diagnoses Anal fissure K60.2 Hemorrhoids that prolapse with straining, but retract spontaneously K64.1
[2023-05-26 15:08] VITALS: BP 137/65; PULSE 104; BMI 21.6
== END 2023-05-26 15:42 | disposition home or self-care (01) ==
PROVIDERS: PCP Pediatrics; Visit Provider Surgery
DX: K60.2 Anal fissure, unspecified (principal); K64.1 Second degree hemorrhoids
CPT/HCPCS: 99214

== ENCOUNTER → 2023-05-26 14:50 | Outpatient (BNVA) | payer MEDICARE, SELFPAY | PROVIDERS: PCP Pediatrics; Visit Provider Surgery | DX: K64.1 Second degree hemorrhoids (principal); K60.2 Anal fissure, unspecified | CPT/HCPCS: 99212 ==

== ENCOUNTER 2023-09-19 08:34 | Emergency (ER) | payer MEDICARE, SELFPAY ==
--- NOTE | ~2023-09-19 | US_ITS ---
EXAMINATION: US VENOUS ULTRASOUND WITH DOPPLER LOWER EXTREMITY, RIGHT CLINICAL INFORMATION: Right leg and ankle swelling. COMPARISON: Bilateral lower extremity venous ultrasound dated 05/03/2022. TECHNIQUE: Ultrasound of the deep veins is performed from the hip to the calf with compression sonography and color and pulse Doppler assessment. Spectral analysis with color-flow imaging is performed. FINDINGS: There is normal venous compression and respiratory variation and augmented flow. The visualized common femoral vein, superficial femoral vein, profunda femoral vein, popliteal vein, and the trifurcation region shows no evidence of deep venous thrombosis. There is no significant popliteal fossa cyst. If the patient's symptoms persist, followup ultrasound in 5 days 7 days might be of value to exclude proximal propagation from a non-visualized calf vein. US/US venous duplex LE RT IMPRESSION: No DVT demonstrated in the right lower extremity.
--- NOTE | ~2023-09-19 | XR_ITS ---
EXAMINATION: XR ANKLE, RIGHT CLINICAL INFORMATION: Pain COMPARISON: Right ankle radiograph from 05/04/2023 TECHNIQUE: AP, lateral, and mortise views of the right ankle. FINDINGS: Osteopenia. No acute visible fracture or dislocation. Ankle mortise is symmetric. Joint space alignment are maintained. Soft tissue prominence about the ankle. XR/XR ankle RT min 3V IMPRESSION: 1. Osteopenia. 2. No acute visible fracture or dislocation. 3. Soft tissue prominence about the ankle.
--- NOTE | ~2023-09-19 | CT_ITS ---
EXAMINATION: CT HEAD WITHOUT CONTRAST CLINICAL INFORMATION: Ringing in ears lightheadedness COMPARISON: CT head from 09/16/2018 TECHNIQUE: Contiguous axial imaging was performed from the skull base to vertex without intravenous administration of contrast. This CT examination was performed using dose optimization techniques as appropriate, variously including the following: *Automated exposure control *Adjustment of mA and/or kV according to patient size (this includes techniques or standardized protocols for targeted exams where dose is matched to indication/reason for exam; i.e. extremities or head) *Use of iterative reconstruction technique DLP: 610.38 mGy-cm FINDINGS: There is no evidence of acute intracranial hemorrhage or territorial infarction. Chronic white matter small vessel ischemic changes. No abnormal mass effect or midline shift is seen. Lino to white matter differentiation is well preserved. No extra-axial fluid collections are identified. The ventricles are normal in size. There is no abnormal attenuation within the brain parenchyma. The osseous structures and soft tissues are normal. Mucoperiosteal thickening of the left sphenoid sinus. The mastoid air cells and visualized portions of the paranasal sinuses are well aerated. CT/CT head/brain wo IV con IMPRESSION: 1. No acute intracranial pathology. 2. Chronic white matter small vessel ischemic changes. 3. Mucoperiosteal thickening of the left sphenoid sinus.
[2023-09-19 08:47] VITALS: BP 143/74; PULSE 100; RESP 19; TEMP 36.6; O2SAT 100; BMI 22.2
[2023-09-19 09:02] LABS: MANUAL DIFF FLAG NO
[2023-09-19 09:04] LABS: Basophils Absolute Auto 0.1 X10*3/uL (0.0-0.2); Basophils Percent Auto 0.8 % (0-2); Eosinophils Absolute Auto 0.1 X10*3/uL (0.0-0.4); Eosinophils Percent Auto 1.6 % (0-4); Hematocrit 44.3 % (37.0-47.0); Hemoglobin 14.7 g/dl (12.0-16.0); Imm Gran Abs Auto 0.02 X10*3/uL (0.00-0.03); Imm Gran Pct Auto 0.3 % (0.0-0.4); Lymphocytes Absolute Auto 1.9 X10*3/uL (1.2-4.9); Lymphocytes Percent Auto 23.7 % (20-40); Mean Corpuscular HGB Conc 33.2 g/dl (31.0-35.0); Mean Corpuscular Volume 78.4 fL (80.0-98.0); Mean Platelet Volume 10.3 fL (9.4-12.3); Monocytes Absolute Auto 0.6 X10*3/uL (0.1-1.2); Monocytes Percent Auto 7.5 % (2-11); Neutrophils Absolute Auto 5.3 x10*3/uL (2.0-8.3); Neutrophils Percent Auto 66.1 % (45-73); Platelet Count 264 X10*3/uL (160-400); Red Blood Count 5.65 X10*6/uL (4.20-5.50); Red Cell Distribution Width 16.6 % (11.0-16.0)
[2023-09-19 09:47] LABS: Anion Gap 14 (12-20); Blood Urea Nitrogen 14 mg/dL (9-16); Calcium 9.4 mg/dL (8.4-10.2); Carbon Dioxide 24 mmol/L (22-29); Chloride 104 mmol/L (96-108); Creatinine Clr Calc Pharmacy 43.5; Estimated Glomerular Filt Rate > 60; Glucose Random 97 mg/dL (60-115); Potassium 4.3 mmol/L (3.3-5.1); Sodium 138 mmol/L (135-145)
--- OUTSIDE RECORDS SUMMARY | 2023-09-19 10:34 | XMS_ITS | Continuity of Care Document ---
Author Organization [facility] Address [address] [address]- Care Team Providers Care Er Tech Name Role Phone Lawrence GERBER, Ruma Bauer Primary Care Physician Encounter [facility] Date(s): 07/20/23 - 08/19/23 [facility] [address] [address]- Attending Physician: Will Wilson Admitting Physician: AdmtrWill [...] Active Levaquin Active Tylenol Active Bactrim Active linezolid Persistent Mild Active Biaxin XL Active Adhesive Bandage rash Active Cats Active Contrast Dye Active Ider Active Dogs Active Dust Active Horses Active [...] 1 Refills, Maintenance, 01/19/23 10:23:00 EDT, Tablet, [facility] #[id number], Partial fill upon patient request if the [...] 0 Refills, Maintenance, 12/17/22 11:48:00 EDT, Gel, [facility] #[id number], Partial fill upon patient request if the prescription is for a schedule II opioid drug., 152, cm,... Start Date: 12/17/22 Status: Ordered diclofenac 1% topical gel 1 application, Topically, 4 times a day, # 100 Gm, 0 Refills, Maintenance, 12/25/22 11:12:00 EDT, Gel, [facility] #[id number], Partial fill upon patient request if the prescription is for a schedule II opioid drug., 152, cm, 12/25/22 10:26:00 EDT... Start Date: 12/25/22 Status: Ordered diphenhydrAMINE 50 mg oral tablet 1 tablet = 50 mg, By Mouth, Once, [address] scan, # 1 tablet, 2 Refills, Soft Stop, 10/15/22 14:04:00 EDT, [facility] #[id number], Partial fill upon patient request if the [...] 11/03/22 16:12:00 EDT, Route to Pharmacy Electronically, [facility] #[id number], Partial fill upon patient request if the [...] 3 Refills, Maintenance, 03/24/23 9:43:00 EST, Tablet, [facility] #[id number],... Start Date: 03/24/23 Status: Ordered lisinopril 5 mg oral tablet See Instructions, TAKE 1 TABLET BY MOUTH DAILY, # 90 tablet, Refills 1, Tot. Refills 1, Maintenance, 06/03/23 10:10:00 EST, Instructions Replace Required Details, Route to Pharmacy Electronically, [facility]/pharmacy #[id number], 150.2, cm, 05/11/23 11:17:00 EST,... Start Date: 06/03/23 Status: Ordered Omeprazole = 40 mg, By [...] Event Display: Ultrasound Lower Extremity Authored Date: [id number] Patient Care team information Care Team Personnel Name: Yin Hsu Position: [facility] RN Member Role: Primary Care Nurse Name: Ruma Bravo MD Position: [facility] Physician - Primary Care Member Role: PCP Address: Address: [address] [place] [address] - [address] Name: Shikha Rivera RN Position: [facility] RN Member Role: Primary Care Nurse Name: Consuelo Louis RN Position: [facility] RN Member Role: Primary Care Nurse Name: Cherry Olsen MD Position: [facility] WEATHER ANCHOR MD Member Role: [employer] WEATHER ANCHOR Physician Address: Address: [address] Women's [place] [address]- Name: Maeve Jones RN Position: [facility] RN Member Role: Primary Care Nurse Care Team Related Persons Name: MEG MARTIN Address: home [address] [place] [id number] Name: JAKE RODRIGUES Address: [place] [address]
--- OUTSIDE RECORDS SUMMARY | 2023-09-19 10:34 | XMS_ITS | Continuity of Care Document ---
Author Organization [facility] Address [address] [address]- Care Team Providers Care Electronic Scanner Operator Name Role Phone Lawrence GERBER, Ruma Bauer Primary Care Physician [place] [facility] [place]23 [place] 07/18/23 [facility] [address] [address] Allergies, Adverse Reactions, Alerts Substance Reaction Severity Status atenolol Active codeine Active erythromycin Active amoxicillin Active penicillin Active sulfADIAZINE All sulfa drugs Active sulfa drugs Active shellfish Active ibuprofen Active aspirin Active doxycycline 1 Moderate Active tetracycline Active clindamycin Active metoprolol Active predniSONE Allergy to sulfa drugs Activ e caffeine Active Keflex Active Fosamax Active Cefzil Active Tums Active Augmentin Active Levaquin Active Tylenol Active linezolid Persistent Mild Active Contrast Dye Active Dogs Active Dust Active Horses Active Latex rash Active Benadryl, Topical 2 Active Cleocin T Active Bactrim Active Biaxin XL Active Adhesive Bandage rash Active Cats Active [place] Active Mold Active Nuts Active Soy Products [...] 1 Refills, Maintenance, 01/19/23 10:23:00 EDT, Tablet, [facility] #[id number], Partial fill upon patient request if the [...] Gm, 0 Refills, Maintenance, 12/17/22 11:48:00 EDT, [facility] #[id number], Partial fill upon patient request if the prescription is for a schedule II opioid drug., 152, cm,... Start Date: 12/17/22 Status: Ordered diclofenac 1% topical gel 1 application, Topically, 4 times a day, # 100 Gm, 0 Refills, Maintenance, 12/25/22 11:12:00 EDT, [facility] #[id number], Partial fill upon patient request if the prescription is for a schedule II opioid drug., 152, cm, 12/25/22 10:26:00 EDT... Start Date: 12/25/22 Status: Ordered diphenhydrAMINE 50 mg oral tablet 1 tablet = 50 mg, By Mouth, Once, [address] scan, # 1 tablet, 2 Refills, Soft Stop, 10/15/22 14:04:00 EDT, [facility] #[id number], Partial fill upon patient request if the [...] 11/03/22 16:12:00 EDT, Route to Pharmacy Electronically, [facility] #[id number], Partial fill upon patient request if the [...] 3 Refills, Maintenance, 03/24/23 9:43:00 EST, Tablet, [facility] #[id number],... Start Date: 03/24/23 Status: Ordered lisinopril 5 mg oral tablet See Instructions, TAKE 1 TABLET BY MOUTH DAILY, # 90 tablet, Refills 1, Tot. Refills 1, Maintenance, 06/03/23 10:10:00 EST, Instructions Replace Required Details, Route to Pharmacy Electronically, [facility]/pharmacy #[id number], 150.2, cm, 05/11/23 11:17:00 EST,... Start Date: [...] Personnel Name: Yin Hsu Position: [facility] Onco RN Member Role: Primary Care Nurse Name: Ruma Bravo MD Position: [facility] Physician - Primary Care Member Role: PCP Address: Address: [address] [place] [address] [place] [address]- Name: Shikha Rivera RN Position: S RN Member Role: Primary Care Nurse Name: Consuelo Louis RN Position: S RN Member Role: Primary Care Nurse Name: Cherry Olsen MD Position: [facility] FRAME CARVER SPINDLE MD Member Role: [employer] FRAME CARVER SPINDLE Physician Address: Address: [address] [place], [place] [address]s [facility] [address]- Name: Maeve Jones RN Position: S RN Member Role: Primary Care Nurse Care Team Related Persons Name: MEG MARTIN Address: [address] [address] Name: JAKE RODRIGUES Address: [place] [address]
--- OUTSIDE RECORDS SUMMARY | 2023-09-19 10:34 | XMS_ITS | Continuity of Care Document ---
Author Organization [facility] Address [address] [place] [address] [address] [place] [address]- Care Team Providers Care Broke Man Name Role Phone Lawrence GERBER, Ruma Bauer Primary Care Physician Encounter [facility] Date(s): 08/11/23 - 09/10/[address] [place] [address]- Allergies, Adverse Reactions, Alerts Substance Reaction Severity [...] Dust Active Horses Active Latex rash Active Cleocin T Active Fosamax Active Augmentin Active Bactrim Active linezolid Persistent Mild Active Biaxin XL Active Adhesive Bandage rash Active Cats Active [place] Active Mold Active Nuts Active Soy Products [...] 1 Refills, Maintenance, 01/19/23 10:23:00 EDT, Tablet, [facility][id number], Partial fill upon patient request if the [...] Gm, 0 Refills, Maintenance, 12/17/22 11:48:00 EDT, [facility] #[id number], Partial fill upon patient request if the prescription is for a schedule II opioid drug., 152, cm,... Start Date: 12/17/22 Status: Ordered diclofenac 1% topical gel 1 application, Topically, 4 times a day, # 100 Gm, 0 Refills, Maintenance, 12/25/22 11:12:00 EDT, [facility] #[id number], Partial fill upon patient request if the prescription is for a schedule II opioid drug., 152, cm, 12/25/22 10:26:00 EDT... Start Date: 12/25/22 Status: Ordered diphenhydrAMINE 50 mg oral tablet 1 tablet = 50 mg, By Mouth, Once, [address] scan, # 1 tablet, 2 Refills, Soft Stop, 10/15/22 14:04:00 EDT, [facility] #[id number], Partial fill upon patient request if the [...] 11/03/22 16:12:00 EDT, Route to Pharmacy Electronically, [facility] #[id number], Partial fill upon patient request if the [...] 3 Refills, Maintenance, 03/24/23 9:43:00 EST, Tablet, [facility] #[id number],... Start Date: 03/24/23 Status: Ordered lisinopril 5 mg oral tablet See Instructions, TAKE 1 TABLET BY MOUTH DAILY, # 90 tablet, Refills 1, Tot. Refills 1, Maintenance, 06/03/23 10:10:00 EST, Instructions Replace Required Details, Route to Pharmacy Electronically, [facility]/pharmacy #[id number], 150.2, cm, 05/11/23 11:17:00 EST,... Start Date: [...] Care Team Personnel Name: Yin Hsu Position: [facility] Onco RN Member Role: Primary Care Nurse Name: Ruma Bravo MD Position: [facility] Physician - Primary Care Member Role: PCP Address: Address: [address] [place] [address] [place] [address]- Name: Shikha Rivera RN Position: S RN Member Role: Primary Care Nurse Name: Consuelo Louis RN Position: S RN Member Role: Primary Care Nurse Name: Cherry Olsen MD Position: [facility] SOLUTION MANAGER MD Member Role: Lifetime SOLUTION MANAGER Physician Address: Address: [address] [place] [address] Women's Health Rigging Engineer - [place], [place] [address] Name: Maeve Jones RN Position: S RN Member Role: Primary Care Nurse Care Team Related Persons Name: MEG MARTIN Address: [address] [address] Name: JAKE RODRIGUES Address: [place] [address]
--- OUTSIDE RECORDS SUMMARY | 2023-09-19 10:34 | XMS_ITS | Continuity of Care Document ---
Author Organization [facility] Address [address] [facility] [place] [address]- Care Team Providers Care Net Making Supervisor Name Role Phone Lawrence GERBER, Ruma Bauer Primary Care Physician Encounter 02/10/23 - 06/19/23 [facility] [address], [address] [place] [address]- Attending Physician: Ruma Bravo MD Admitting Physician: Ruma Bravo MD Referring Physician: Ruma Bravo MD Allergies, Adverse Reactions, Alerts Substance Reaction Severity Status atenolol Active codeine Active erythromycin Active penicillin Active metoprolol Active caffeine Active sulfa drugs Active ibuprofen Active aspirin Active doxycycline 1 Moderate Active tetracycline Active clindamycin Active amoxicillin Active sulfADIAZINE All sulfa drugs Active predniSONE Allergy to sulfa drugs Activ e shellfish Active Benadryl, Topical 2 Active Keflex Active Cleocin T Active Cefzil Active Tums Active Levaquin Active Tylenol Active linezolid Persistent Mild Active Horses Active Latex rash Active Fosamax Active Augmentin Active Bactrim Active Biaxin XL Active Adhesive Bandage rash Active Cats Active [place] Active Contrast Dye Active Dogs Active Dust Active Mold Active Nuts Active Soy Products [...] 1 Refills, Maintenance, 01/19/23 10:23:00 EDT, Tablet, [facility] #[id number], Partial fill upon patient request if the [...] Gm, 0 Refills, Maintenance, 12/17/22 11:48:00 EDT, [facility] #[id number], Partial fill upon patient request if the prescription is for a schedule II opioid drug., 152, cm,... Start Date: 12/17/22 Status: Ordered diclofenac 1% topical gel 1 application, Topically, 4 times a day, # 100 Gm, 0 Refills, Maintenance, 12/25/22 11:12:00 EDT, Gel, [facility] #[id number], Partial fill upon patient request if the prescription is for a schedule II opioid drug., 152, cm, 12/25/22 10:26:00 EDT... Start Date: 12/25/22 Status: Ordered diphenhydrAMINE 50 mg oral tablet 1 tablet = 50 mg, By Mouth, Once, [address] scan, # 1 tablet, 2 Refills, Soft Stop, 10/15/22 14:04:00 EDT, [facility] #[id number], Partial fill upon patient request if the [...] 11/03/22 16:12:00 EDT, Route to Pharmacy Electronically, [facility] #[id number], Partial fill upon patient request if the [...] 3 Refills, Maintenance, 03/24/23 9:43:00 EST, Tablet, [facility] #[id number],... Start Date: 03/24/23 Status: Ordered lisinopril 5 mg oral tablet See Instructions, TAKE 1 TABLET BY MOUTH DAILY, # 90 tablet, Refills 1, Tot. Refills 1, Maintenance, 06/03/23 10:10:00 EST, Instructions Replace Required Details, Route to Pharmacy Electronically, [facility]/pharmacy #[id number], 150.2, cm, 05/11/23 11:17:00 EST,... Start Date: [...] Two 450mL... Start Date: 10/21/22 Status: Ordered traMADol 50 mg oral tablet 1 tablet = 50 mg, By Mouth, Every 6 hours, PRN Pain , Severe, # 20 tablet, 0 Refills, Acute 07/10/23 9:33:00 EST, 06/11/23 9:33:00 EST, Tablet, [id number], Partial fill upon patient request if the prescription is for a schedule II opioid drug.... Start Date: 06/11/23 Stop Date: 07/10/23 Status: Ordered Problem List Condition Confirmation Course [...] Care Team Personnel Name: Shadi Yin Position: [facility] Onco RN Member Role: Primary Care Nurse Name: Ruma Bravo MD Position: [facility] Physician - Primary Care Member Role: PCP Address: Address: [address] [place] [address] [place] [address]- Name: Shikha Rivera RN Position: [facility] RN Member Role: Primary Care Nurse Name: Consuelo Louis RN Position: [facility] RN Member Role: Primary Care Nurse Name: Cherry Olsen MD Position: [facility] BOWLING BALL ASSEMBLER MD Member Role: Lifetime BOWLING BALL ASSEMBLER Physician Address: Address: [address] [place] [address] Women's [place] [address]- Name: Maeve Jones RN Position: [facility] RN Member Role: Primary Care Nurse Care Team Related Persons Name: MEG MARTIN Address: home [address] [place] [address] Name: JAKE RODRIGUES Address: [place] [address]
--- OUTSIDE RECORDS SUMMARY | 2023-09-19 10:34 | XMS_ITS | Continuity of Care Document ---
Author Organization [facility] Address [address] [address]- Care Team Providers Care Armament Mechanic Name Role Phone Lawrence GERBER, Ruma Bauer Primary Care Physician Encounter [facility] Date(s): 05/11/23 - 06/10/23 [facility] [address] [address]- Attending Physician: Will Wilson Admitting Physician: AdmtrWill [...] rash Active Cats Active Contrast Dye Active [place] Active Dogs Active Dust Active Horses Active [...] 1 Refills, Maintenance, 01/19/23 10:23:00 EDT, Tablet, [facility] #[id number], Partial fill upon patient request if the [...] 0 Refills, Maintenance, 12/17/22 11:48:00 EDT, Gel, [facility] #[id number], Partial fill upon patient request if the prescription is for a schedule II opioid drug., 152, cm,... Start Date: 12/17/22 Status: Ordered diclofenac 1% topical gel 1 application, Topically, 4 times a day, # 100 Gm, 0 Refills, Maintenance, 12/25/22 11:12:00 EDT, Gel, [facility] #[id number], Partial fill upon patient request if the prescription is for a schedule II opioid drug., 152, cm, 12/25/22 10:26:00 EDT... Start Date: 12/25/22 Status: Ordered diphenhydrAMINE 50 mg oral tablet 1 tablet = 50 mg, By Mouth, Once, [address] scan, # 1 tablet, 2 Refills, Soft Stop, 10/15/22 14:04:00 EDT, [facility] #[id number], Partial fill upon patient request if the [...] 11/03/22 16:12:00 EDT, Route to Pharmacy Electronically, [facility] #[id number], Partial fill upon patient request if the [...] 3 Refills, Maintenance, 03/24/23 9:43:00 EST, Tablet, [facility] #[id number],... Start Date: 03/24/23 Status: Ordered lisinopril 5 mg oral tablet See Instructions, TAKE 1 TABLET BY MOUTH DAILY, # 90 tablet, Refills 1, Tot. Refills 1, Maintenance, 06/03/23 10:10:00 EST, Instructions Replace Required Details, Route to Pharmacy Electronically, [facility]/pharmacy #[id number], 150.2, cm, 05/11/23 11:17:00 EST,... Start Date: 06/03/23 Status: Ordered lisinopril 5 mg oral tablet 5 mg, 1, tablet, By Mouth, Daily, # 90 tablet, Refills 1, Tot. Refills 1, Maintenance, 09/02/22 9:47:00 EDT, Route to Pharmacy Electronically, [facility] #[id number], 150, cm, 08/27/22 14:11:00 EDT, Height, 45.9, [...] Event Display: Ultrasound Lower Extremity Authored Date: Patient Care team information Care Team Personnel Name: Yin Hsu Position: [facility] Onco RN Member Role: Primary Care Nurse Name: Ruma Bravo MD Position: [facility] Physician - Primary Care Member Role: PCP Address: Address: [address] [place] [address] [place] [address]- Name: Shikha Rivera RN Position: [facility] RN Member Role: Primary Care Nurse Name: Consuelo Louis RN Position: [facility] RN Member Role: Primary Care Nurse Name: Cherry Olsen MD Position: [facility] FIRE ADJUSTER MD Member Role: Lifetime FIRE ADJUSTER Physician Address: Address: [address] [place] [address] Women[place] [address]- Name: Maeve Jones RN Position: [facility] RN Member Role: Primary Care Nurse Care Team Related Persons Name: MEG MARTIN Address: home [address] [place] [id number] Name: JAKE RODRIGUES Address: [place] [address]
--- OUTSIDE RECORDS SUMMARY | 2023-09-19 10:35 | XMS_ITS | Continuity of Care Document ---
Author Organization [facility] Address [address] [facility] [place] [address]- Care Team Providers Care Clinical Practitioner Name Role Phone Lawrence GERBER, Ruma Bauer Primary Care Physician Encounter 03/03/23 - 06/24/23 [facility] [address] [facility], [address] [place] [address]- Attending Physician: Ruma Bravo MD Admitting Physician: [...] rash Active Cats Active Contrast Dye Active [place] Active Dogs Active Dust Active Horses Active [...] 1 Refills, Maintenance, 01/19/23 10:23:00 EDT, Tablet, [facility] #[id number], Partial fill upon patient request if the [...] Gm, 0 Refills, Maintenance, 12/17/22 11:48:00 EDT, [facility] #[id number], Partial fill upon patient request if the prescription is for a schedule II opioid drug., 152, cm,... Start Date: 12/17/22 Status: Ordered diclofenac 1% topical gel 1 application, Topically, 4 times a day, # 100 Gm, 0 Refills, Maintenance, 12/25/22 11:12:00 EDT, Gel, [facility] #[id number], Partial fill upon patient request if the prescription is for a schedule II opioid drug., 152, cm, 12/25/22 10:26:00 EDT... Start Date: 12/25/22 Status: Ordered diphenhydrAMINE 50 mg oral tablet 1 tablet = 50 mg, By Mouth, Once, [address] scan, # 1 tablet, 2 Refills, Soft Stop, 10/15/22 14:04:00 EDT, [facility] #[id number], Partial fill upon patient request if the [...] 11/03/22 16:12:00 EDT, Route to Pharmacy Electronically, [facility] #[id number], Partial fill upon patient request if the [...] 3 Refills, Maintenance, 03/24/23 9:43:00 EST, Tablet, [facility] #[id number],... Start Date: 03/24/23 Status: Ordered lisinopril 5 mg oral tablet See Instructions, TAKE 1 TABLET BY MOUTH DAILY, # 90 tablet, Refills 1, Tot. Refills 1, Maintenance, 06/03/23 10:10:00 EST, Instructions Replace Required Details, Route to Pharmacy Electronically, [facility]/pharmacy #[id number], 150.2, cm, 05/11/23 11:17:00 EST,... Start [...] Care Team Personnel Name: Shadi Yin Position: [facility] Onco RN Member Role: Primary Care Nurse Name: Ruma Bravo MD Position: [facility] Physician - Primary Care Member Role: PCP Address: Address: [address] [place] [address] [place] [address]- Name: Shikha Rivera RN Position: [facility] RN Member Role: Primary Care Nurse Name: Consuelo Louis RN Position: [facility] RN Member Role: Primary Care Nurse Name: Cherry Olsen MD Position: [facility] CHIROPRACTOR ASSISTANT MD Member Role: Lifetime CHIROPRACTOR ASSISTANT Physician Address: Address: [address] [place] [address] Women's [place] [address]- Name: Maeve Jones RN Position: [facility] RN Member Role: Primary Care Nurse Care Team Related Persons Name: MEG MARTIN Address: home [address] [place] [address] Name: JAKE RODRIGUES Address: [place] [address]
--- OUTSIDE RECORDS SUMMARY | 2023-09-19 10:35 | XMS_ITS | Continuity of Care Document ---
Author Organization [facility] Address [address] [place] [address]- Care Team Providers Care Tailings Worker Name Role Phone Ruma Bravo MD Primary Care Physician Encounter [facility] Date(s): 05/07/23 - 05/14/23 [facility] [address] [place] [address]- Encounter Diagnosis Swelling of right foot(Discharge Diagnosis) - 05/07/23 Hemorrhoids(Discharge Diagnosis) - 05/07/23 Low back pain(Discharge Diagnosis) - 05/07/23 Attending Physician: Ruma Bravo MD Allergies, Adverse [...] Active Tylenol Active linezolid Persistent Mild Active Cats Active Contrast Dye Active Cord Active Horses Active Latex rash Active Mold Active Nuts Active Cleocin T Active Fosamax Active Augmentin Active Bactrim Active Biaxin XL Active Adhesive Bandage rash Active Dogs Active Dust Active Other Food Allergy chicken broccoli other [...] 1 Refills, Maintenance, 01/19/23 10:23:00 EDT, Tablet, [facility] #[id number], Partial fill upon patient request if the [...] 0 Refills, Maintenance, 12/17/22 11:48:00 EDT, Gel, [facility] #[id number], Partial fill upon patient request if the prescription is for a schedule II opioid drug., 152, cm,... Start Date: 12/17/22 Status: Ordered diclofenac 1% topical gel 1 application, Topically, 4 times a day, # 100 Gm, 0 Refills, Maintenance, 12/25/22 11:12:00 EDT, [facility] #48592, Partial fill upon patient request if the prescription is for a schedule II opioid drug., 152, cm, 12/25/22 10:26:00 EDT... Start Date: 12/25/22 Status: Ordered diphenhydrAMINE 50 mg oral tablet 1 tablet = 50 mg, By Mouth, Once, [address] scan, # 1 tablet, 2 Refills, Soft Stop, 10/15/22 14:04:00 EDT, [facility] #[id number], Partial fill upon patient request if the [...] 11/03/22 16:12:00 EDT, Route to Pharmacy Electronically, [facility] #[id number], Partial fill upon patient request if the [...] 3 Refills, Maintenance, 03/24/23 9:43:00 EST, Tablet, [facility] #[id number],... Start Date: 03/24/23 Status: Ordered lisinopril 5 mg oral tablet 5 mg, 1, tablet, By Mouth, Daily, # 90 tablet, Refills 1, Tot. Refills 1, Maintenance, 09/02/22 9:47:00 EDT, Route to Pharmacy Electronically, [facility] #[id number], 150, cm, 08/27/22 14:11:00 EDT, Height, 45.9, [...] Effective Dates Health Status Clinical Service Informant Swelling of right foot Discharge Diagnosis 05/07/23 Hemorrhoids Discharge Diagnosis 05/07/23 Low back pain Discharge Diagnosis 05/07/23 Vital Signs Most recent to oldest [Reference Range]: 1 2 Height 150.2 cm (05/07/23 3:25 PM) 150.2 cm (05/07/23 3:16 PM) Weight 47.9 kg (05/07/23 3:16 PM) Oxygen Saturation [94-100 %] 100 % (05/07/23 3:16 PM) Pulse Rate [55-90 bpm] 109 bpm *H* (05/07/23 3:16 PM) Body Mass Index [18.5-24.99 kg/m2] 21.23 kg/m2 (05/07/23 3:16 PM) Blood Pressure [90-138/55-84 mm Hg] 125/ 81mm Hg (05/07/23 3:25 PM) 153/82mm Hg *H* (05/07/23 3:16 PM) Blood pressure sites Arm, left (05/07/23 3:25 PM) Arm, left (05/07/23 3:16 PM) Weight Obtained Via Standing scale (05/07/23 3:16 PM) Social History Social History Type Response Smoking Status Never (less than 100 in lifetime) entered on: 05/30/19 Sex Note * Dhara Troncoso: PERFORM, SIGN, VERIFY Event Display: Patient Education/Instruction Authored Date: [id number] [facility] Clinical Summary Name NAUN MARTIN Age 78 Years 1945 PCP Ruma Bravo MD PCP Visit Date 05/07/2023 15:13:00 Patient Instructions [phone] is the phone number for??specialty appointments. Please call them if you haven't heard from Dr. Tirado's office by next week. Additional Instructions: Scheduled Appointments?? Future Appointments ?*[facility]??Hrt??Vas??Off ?[address]??[place],??[place],??[address] ?Phone:??--?Fax:??-- ?Appt. Date:??05/11/2023?11:00 AM ?Scheduled Provider:??Carlton BARRERA , Savanah Horner ?J[facility]D[place]??[place] ?[address]??[place],??[place],??[address] ?Phone:??[phone]?Fax:??-- ?Appt. Date:??05/20/2023?10:15 AM ?Scheduled Provider:??JAGDISH [facility] ?[facility]??[place] ?[address]??[place],??[place],??[address] ?Phone:??[phone]?Fax:??-- ?Appt. Date:??05/25/2023?10:15 AM ?Scheduled Provider:??JAGDISH Noho US Rm 1 Follow-Up Instructions ?? Diagnosis Medications: Please continue [...] 1HR & until after first food. Refills: 3. Next Dose: Lisinopril (lisinopril 5 mg oral [...] Allergy; Nuts; Mold; Latex; Horses; Dust; Dogs; Cord; Contrast Dye; Cats; Adhesive Bandage; Biaxin XL; linezolid; Bactrim; Tylenol; Levaquin; Augmentin; Tums; Cefzil; Fosamax; Cleocin T; Keflex; Benadryl, Topical; shellfish; sulfa drugs; caffeine; predniSONE; aspirin; metoprolol; sulfADIAZINE; penicillin; amoxicillin; erythromycin; clindamycin; tetracycline; doxycycline; ibuprofen; codeine; atenolol Medications Given This Visit Future Orders ?Sedimentation Rate? Order Date:05/07/23?- Complete on or after?05/07/23 ?CBC w/ Differential? Order Date:05/07/23?- Complete on or after?05/07/23 ?Comprehensive Metabolic Panel? Order Date:05/07/23?- Complete on or after?05/07/23 ?B Type Natriuretic Peptide? Order Date:05/07/23?- Complete on or after?05/07/23 Vital Signs Height 150.2 cm Weight 47.9 kg BMI 21.23 kg/m2 Blood Pressure 125 mm Hg/81 mm Hg Temperature Pulse Rate 109 bpm Respiratory Rate 02 Sat Mode of Delivery 100 %/ You can now view a summary of your hospital visit from the comfort of your home through a free online portal called [employer]. [employer] is a website that allows you to securely view your medical information including discharge summary, medications and follow-up visits. ??You can alsosend a secure electronic message to your doctor???s office to request appointments, renew medications or just ask a question. You can enroll at [email or web address] or register during your next [...] primary care provider, you may find a [facility] provider by calling [facility] [employer] [facility] at [phone]. [facility], in keeping with [facility] guidance, no longer requires face masks [...] Care Team Personnel Name: Yin Hsu Position: [facility] Onco RN Member Role: Primary Care Nurse Name: Ruma Bravo MD Position: [facility] Physician - Primary Care Member Role: PCP Address: Address: [address] [place] [address] Medicine - [address] Name: Shikha Rivera RN Position: [facility] RN Member Role: Primary Care Nurse Name: Consuelo Louis RN Position: [facility] RN Member Role: Primary Care Nurse Name: Pretty GERBER, Cherry Gaines Position: [facility] RAW SHELLFISH PREPARER MD Member Role: Lifetime RAW SHELLFISH PREPARER Physician Address: Address: [address] [place], [place] [address] [facility] [address] Name: Maeve Joens RN Position: [facility] RN Member Role: Primary Care Nurse Care Team Related Persons Name: MEG MARTIN Address: home [address] [place] [id number] Name: JAKE RODRIGUES Address: [place] [address]
--- OUTSIDE RECORDS SUMMARY | 2023-09-19 10:35 | XMS_ITS | Continuity of Care Document ---
Author Organization [facility] Address [address] [place] [address]- Care Team Providers Care Senior Cognos Developer Name Role Phone Lawrence GERBER, Ruma Bauer Primary Care Physician Encounter [facility] Date(s): 08/03/23 - 09/18/23 [facility] [address] [place] [address] Attending Physician: Rossy GERBER, Chad Aguilera Referring Physician: Celestino GERBER, Jazmin Hector Allergies, Adverse Reactions, Alerts Substance Reaction Severity [...] Active Adhesive Bandage rash Active Cats Active [place] Active Contrast Dye Active Mold Active Nuts Active Soy Products [...] 1 Refills, Maintenance, 01/19/23 10:23:00 EDT, Tablet, [facility] #[id number], Partial fill upon patient request if the [...] Gm, 0 Refills, Maintenance, 12/17/22 11:48:00 EDT, [facility] #[id number], Partial fill upon patient request if the prescription is for a schedule II opioid drug., 152, cm,... Start Date: 12/17/22 Status: Ordered diclofenac 1% topical gel 1 application, Topically, 4 times a day, # 100 Gm, 0 Refills, Maintenance, 12/25/22 11:12:00 EDT, [facility] #31484, Partial fill upon patient request if the prescription is for a schedule II opioid drug., 152, cm, 12/25/22 10:26:00 EDT... Start Date: 12/25/22 Status: Ordered diphenhydrAMINE 50 mg oral tablet 1 tablet = 50 mg, By Mouth, Once, [address] scan, # 1 tablet, 2 Refills, Soft Stop, 10/15/22 14:04:00 EDT, [facility] #[id number], Partial fill upon patient request if the [...] 11/03/22 16:12:00 EDT, Route to Pharmacy Electronically, [facility] #[id number], Partial fill upon patient request if the [...] 3 Refills, Maintenance, 03/24/23 9:43:00 EST, Tablet, [facility] #[id number],... Start Date: 03/24/23 Status: Ordered lisinopril 5 mg oral tablet See Instructions, TAKE 1 TABLET BY MOUTH DAILY, # 90 tablet, Refills 1, Tot. Refills 1, Maintenance, 06/03/23 10:10:00 EST, Instructions Replace Required Details, Route to Pharmacy Electronically, [facility]acy #[id number], 150.2, cm, 05/11/23 11:17:00 EST,... Start Date: [...] Care Team Personnel Name: Yin Hsu Position: [facility] Onco RN Member Role: Primary Care Nurse Name: Ruma Bravo MD Position: [facility] Physician - Primary Care Member Role: PCP [facility] [place] [address]- Name: Shikha Rivera RN Position: S RN Member Role: Primary Care Nurse Name: Consuelo Louis RN Position: S RN Member Role: Primary Care Nurse Name: Cherry Olsen MD Position: [facility] BRUSH FABRICATION SUPERVISOR MD Member Role: Lifetime BRUSH FABRICATION SUPERVISOR Physician Address: Address: [address] [facility] Women's Health Firewall [place] [address]- Name: Maeve Jones RN Position: S RN Member Role: Primary Care Nurse Care Team Related Persons Name: MEG MARTIN Address: home [address] [place] [id number] Name: JAKE RODRIGUES Address: [place] [address]
--- OUTSIDE RECORDS SUMMARY | 2023-09-19 10:35 | XMS_ITS | Continuity of Care Document ---
Author Organization [facility] Address [address] [place] [address]- Care Team Providers Care Distributor Of Directories Name Role Phone Ruma Bravo MD Primary Care Physician Encounter [facility] Date(s): 05/27/23 - 06/26/23 [facility] [address] [place] [address]- Allergies, Adverse Reactions, Alerts Substance Reaction Severity [...] Tylenol Active Horses Active Latex rash Active Cleocin T Active Fosamax Active Augmentin Active Bactrim Active linezolid Persistent Mild Active Biaxin XL Active Adhesive Bandage rash Active Cats Active [place] Active Contrast Dye Active Dogs Active Dust [...] 01/19/23 10:23:00 EDT, Tablet, [facility] #73125, Partial fill upon patient request if the [...] Gm, 0 Refills, Maintenance, 12/17/22 11:48:00 EDT, [facility] #[id number], Partial fill upon patient request if the prescription is for a schedule II opioid drug., 152, cm,... Start Date: 12/17/22 Status: Ordered diclofenac 1% topical gel 1 application, Topically, 4 times a day, # 100 Gm, 0 Refills, Maintenance, 12/25/22 11:12:00 EDT, [facility] #01809, Partial fill upon patient request if the prescription is for a schedule II opioid drug., 152, cm, 12/25/22 10:26:00 EDT... Start Date: 12/25/22 Status: Ordered diphenhydrAMINE 50 mg oral tablet 1 tablet = 50 mg, By Mouth, Once, [address] scan, # 1 tablet, 2 Refills, Soft Stop, 10/15/22 14:04:00 EDT, [facility] #81974, Partial fill upon patient request if the [...] 11/03/22 16:12:00 EDT, Route to Pharmacy Electronically, [facility] #[id number], Partial fill upon patient request if the [...] 3 Refills, Maintenance, 03/24/23 9:43:00 EST, Tablet, [facility] #[id number],... Start Date: 03/24/23 Status: Ordered lisinopril 5 mg oral tablet See Instructions, TAKE 1 TABLET BY MOUTH DAILY, # 90 tablet, Refills 1, Tot. Refills 1, Maintenance, 06/03/23 10:10:00 EST, Instructions Replace Required Details, Route to Pharmacy Electronically, [facility]/pharmacy #[id number], 150.2, cm, 05/11/23 11:17:00 EST,... Start Date: [...] Care Team Personnel Name: Yin Hsu Position: [facility] Onco RN Member Role: Primary Care Nurse Name: Ruma Bravo MD Position: [facility] Physician - Primary Care Member Role: PCP Address: Address: [address] [place] [address] Family Medicine - [address] Name: Shikha Rivera RN Position: [facility] RN Member Role: Primary Care Nurse Name: Consuelo Louis RN Position: [facility] RN Member Role: Primary Care Nurse Name: Cherry Olsen MD Position: [facility] EXTERMINATION INSPECTOR MD Member Role: Lifetime EXTERMINATION INSPECTOR Physician Address: Address: [address] [place] [address] Women's Health Assistant Family Teacher - [address] Name: Mavee Jones RN Position: [facility] RN Member Role: Primary Care Nurse Care Team Related Persons Name: MEG MARTIN Address: home [address] [place] [address] Name: JAKE RODRIGUES Address: [place] [address]
--- OUTSIDE RECORDS SUMMARY | 2023-09-19 10:36 | XMS_ITS | Continuity of Care Document ---
Author Organization [facility] Address [address] [address]- Care Team Providers Care Pharmacy Operations Manager Name Role Phone Lawrence GERBER, Ruma Bauer Primary Care Physician Encounter [facility] Date(s): 07/01/23 - 07/31/23 [facility] [address] [address] Allergies, Adverse Reactions, Alerts Substance Reaction [...] rash Active Cats Active Contrast Dye Active [place] Active Dogs Active Dust Active Horses Active [...] 1 Refills, Maintenance, 01/19/23 10:23:00 EDT, Tablet, [facility] #66253, Partial fill upon patient request if the [...] Gm, 0 Refills, Maintenance, 12/17/22 11:48:00 EDT, [facility] #28172, Partial fill upon patient request if the prescription is for a schedule II opioid drug., 152, cm,... Start Date: 12/17/22 Status: Ordered diclofenac 1% topical gel 1 application, Topically, 4 times a day, # 100 Gm, 0 Refills, Maintenance, 12/25/22 11:12:00 EDT, [facility] #[id number], Partial fill upon patient request if the prescription is for a schedule II opioid drug., 152, cm, 12/25/22 10:26:00 EDT... Start Date: 12/25/22 Status: Ordered diphenhydrAMINE 50 mg oral tablet 1 tablet = 50 mg, By Mouth, Once, [address] scan, # 1 tablet, 2 Refills, Soft Stop, 10/15/22 14:04:00 EDT, [facility] #[id number], Partial fill upon patient request if the [...] 11/03/22 16:12:00 EDT, Route to Pharmacy Electronically, [facility] #[id number], Partial fill upon patient request if the [...] 3 Refills, Maintenance, 03/24/23 9:43:00 EST, Tablet, [facility] #[id number],... Start Date: 03/24/23 Status: Ordered lisinopril 5 mg oral tablet See Instructions, TAKE 1 TABLET BY MOUTH DAILY, # 90 tablet, Refills 1, Tot. Refills 1, Maintenance, 06/03/23 10:10:00 EST, Instructions Replace Required Details, Route to Pharmacy Electronically, [facility]/pharmacy #[id number], 150.2, cm, 05/11/23 11:17:00 EST,... Start Date: [...] Team Personnel Name: Yin Hsu Position: [facility] Onco RN Member Role: Primary Care Nurse Name: Ruma Bravo MD Position: [facility] Physician - Primary Care Member Role: PCP Address: Address: [address] [place] [address] [place] [address]- Name: Shikha Rivera RN Position: S RN Member Role: Primary Care Nurse Name: Consuelo Louis RN Position: S RN Member Role: Primary Care Nurse Name: Cherry Olsen MD Position: [facility] ENGINE ASSEMBLY SUPERVISOR MD Member Role: Lifetime ENGINE ASSEMBLY SUPERVISOR Physician Address: Address: [address] [place], [place] [address]s [facility] [place] [address]- Name: Maeve Jones RN Position: S RN Member Role: Primary Care Nurse Care Team Related Persons Name: MEG MARTIN Address: [address] [address] Name: JAKE RODRIGUES Address: [place] [address]
--- OUTSIDE RECORDS SUMMARY | 2023-09-19 10:36 | XMS_ITS | Continuity of Care Document ---
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 Start Date: 12/17/22 Status: Ordered diclofenac 1% topical gel 1 application, Topically, 4 times a day, # 100 Gm, 0 Refills, Maintenance, 12/25/22 11:12:00 EDT, [facility] #[id number], Partial fill upon patient request if the prescription is for a schedule II opioid drug., 152, cm, 12/25/22 10:26:00 EDT... Start Date: 12/25/22 Status: Ordered diphenhydrAMINE 50 mg oral tablet 1 tablet = 50 mg, By Mouth, Once, [address] scan, # 1 tablet, 2 Refills, Soft Stop, 10/15/22 14:04:00 EDT, [facility] #[id number], Partial fill upon patient request if the [...] 11/03/22 16:12:00 EDT, Route to Pharmacy Electronically, [facility] #[id number], Partial fill upon patient request if the [...] 3 Refills, Maintenance, 03/24/23 9:43:00 EST, Tablet, [facility] #[id number],... Start Date: 03/24/23 Status: Ordered lisinopril 5 mg oral tablet See Instructions, TAKE 1 TABLET BY MOUTH DAILY, # 90 tablet, Refills 1, Tot. Refills 1, Maintenance, 06/03/23 10:10:00 EST, Instructions Replace Required Details, Route to Pharmacy Electronically, [facility]/pharmacy #[id number], 150.2, cm, 05/11/23 11:17:00 EST,... Start Date: [...] BH Authored Date: * Chelsea Pro MD September D: REVIEW Event Display: Radiology Result [...] Care Member Role: PCP Address: Address: [address] [place] [address] Name: Shikha Rivera RN Position: [facility] RN Member Role: Primary Care Nurse Name: Consuelo Louis RN Position: [facility] RN Member Role: Primary Care Nurse Name: Cherry Olsen MD Position: [facility] MANAGER OF SCHOOL MD Member Role: Lifetime MANAGER OF SCHOOL Physician Address: Address: [address] [place] [address] [facility] [place] [address]- Name: Maeve Jones RN Position: [facility] RN Member Role: Primary Care Nurse Care Team Related Persons Name: MEG MARTIN Address: home [address] [place] [address] Name: JAKE RODRIGUES Address: [place] [address]
--- OUTSIDE RECORDS SUMMARY | 2023-09-19 10:37 | XMS_ITS | Continuity of Care Document ---
Author Organization [facility] Address [address] [place] [address]- Care Team Providers Care Director Of Family Service Center Name Role Phone Ruma Bravo MD Primary Care Physician Encounter [facility] Date(s): 04/22/23 - 05/22/23 [facility] [address] [place] [address]- Allergies, Adverse Reactions, Alerts Substance Reaction Severity [...] Tylenol Active Cats Active Contrast Dye Active [place] Active Horses Active Latex rash Active Cleocin T Active Fosamax Active Augmentin Active Bactrim Active linezolid Persistent Mild Active Biaxin XL Active Adhesive Bandage rash Active Dogs Active Dust Active Mold Active Nuts Active Other Food [...] 01/19/23 10:23:00 EDT, Tablet, [facility] #[id number], Partial fill upon patient request if the [...] Gm, 0 Refills, Maintenance, 12/17/22 11:48:00 EDT, [facility] #65693, Partial fill upon patient request if the prescription is for a schedule II opioid drug., 152, cm,... Start Date: 12/17/22 Status: Ordered diclofenac 1% topical gel 1 application, Topically, 4 times a day, # 100 Gm, 0 Refills, Maintenance, 12/25/22 11:12:00 EDT, [facility] #[id number], Partial fill upon patient request if the prescription is for a schedule II opioid drug., 152, cm, 12/25/22 10:26:00 EDT... Start Date: 12/25/22 Status: Ordered diphenhydrAMINE 50 mg oral tablet 1 tablet = 50 mg, By Mouth, Once, [address] scan, # 1 tablet, 2 Refills, Soft Stop, 10/15/22 14:04:00 EDT, [facility] #[id number], Partial fill upon patient request if the [...] 11/03/22 16:12:00 EDT, Route to Pharmacy Electronically, [facility] #[id number], Partial fill upon patient request if the [...] 3 Refills, Maintenance, 03/24/23 9:43:00 EST, Tablet, [facility] #[id number],... Start Date: 03/24/23 Status: Ordered lisinopril 5 mg oral tablet 5 mg, 1, tablet, By Mouth, Daily, # 90 tablet, Refills 1, Tot. Refills 1, Maintenance, 09/02/22 9:47:00 EDT, Route to Pharmacy Electronically, [facility] #[id number], 150, cm, 08/27/22 14:11:00 EDT, Height, 45.9, [...] Care Nurse Name: Ruma Bravo MD Position: [facility] Physician - Primary Care Member Role: PCP Address: Address: [address] [place] [address] Family Medicine - [address] Name: Shikha Rivera RN Position: [facility] RN Member Role: Primary Care Nurse Name: Consuelo Louis RN Position: [facility] RN Member Role: Primary Care Nurse Name: Cherry Olsen MD Position: [facility] LITERACY TEACHER MD Member Role: Lifetime LITERACY TEACHER Physician [facility]: [facility] Women[facility] Health Final Cigar And Box Examiner - [place], [place] [address] Name: Maeve Jones RN Position: [facility] RN Member Role: Primary Care Nurse Care Team Related Persons Name: MEG MARTIN Address: home [address] [place] [id number] Name: JAKE RODRIGUES Address: [place] [address]
--- OUTSIDE RECORDS SUMMARY | 2023-09-19 10:38 | XMS_ITS | Continuity of Care Document ---
Author Organization [facility] Address [address] [address]- Care Team Providers Care State Federal Relations Deputy Director Name Role Phone Lawrence GERBER, Ruma Bauer Primary Care Physician Encounter [facility] Date(s): 06/03/23 - 07/03/23 [facility] [address] [address]- [place] Allergies, Adverse Reactions, Alerts Substance Reaction Severity Status atenolol Active codeine Active amoxicillin Active penicillin Active caffeine Active ibuprofen Active aspirin Active doxycycline 1 Moderate Active tetracycline Active clindamycin Active erythromycin Active sulfADIAZINE All sulfa drugs Active metoprolol Active predniSONE Allergy to sulfa drugs Activ e sulfa drugs Active shellfish Active Benadryl, Topical 2 Active Keflex Active Cefzil Active Tums Active Levaquin Active Tylenol Active linezolid Persistent Mild Active Horses Active Latex rash Active Cleocin T Active Fosamax Active Augmentin Active Bactrim Active Biaxin XL Active Adhesive Bandage rash Active Cats Active [place] Active Contrast Dye Active Dogs Active Dust [...] 1 Refills, Maintenance, 01/19/23 10:23:00 EDT, Tablet, [facility] #60007, Partial fill upon patient request if the [...] Gm, 0 Refills, Maintenance, 12/17/22 11:48:00 EDT, [facility] #[id number], Partial fill upon patient request if the prescription is for a schedule II opioid drug., 152, cm,... Start Date: 12/17/22 Status: Ordered diclofenac 1% topical gel 1 application, Topically, 4 times a day, # 100 Gm, 0 Refills, Maintenance, 12/25/22 11:12:00 EDT, [facility] #32812, Partial fill upon patient request if the prescription is for a schedule II opioid drug., 152, cm, 12/25/22 10:26:00 EDT... Start Date: 12/25/22 Status: Ordered diphenhydrAMINE 50 mg oral tablet 1 tablet = 50 mg, By Mouth, Once, [address] scan, # 1 tablet, 2 Refills, Soft Stop, 10/15/22 14:04:00 EDT, [facility] #65014, Partial fill upon patient request if the [...] 11/03/22 16:12:00 EDT, Route to Pharmacy Electronically, [facility] #[id number], Partial fill upon patient request if the [...] 3 Refills, Maintenance, 03/24/23 9:43:00 EST, Tablet, [facility] #[id number],... Start Date: 03/24/23 Status: Ordered lisinopril 5 mg oral tablet See Instructions, TAKE 1 TABLET BY MOUTH DAILY, # 90 tablet, Refills 1, Tot. Refills 1, Maintenance, 06/03/23 10:10:00 EST, Instructions Replace Required Details, Route to Pharmacy Electronically, [facility]/pharmacy #[id number], 150.2, cm, 05/11/23 11:17:00 EST,... Start Date: [...] Team Personnel Name: Shadi , Yin Position: [facility] Onco RN Member Role: Primary Care Nurse Name: Ruma Bravo MD Position: [facility] Physician - Primary Care Member Role: PCP Address: Address: [address] [place] [address] Family Medicine - [address] Name: Shikha Rivera RN Position: [facility] RN Member Role: Primary Care Nurse Name: Consuelo Louis RN Position: [facility] RN Member Role: Primary Care Nurse Name: Cherry Olsen MD Position: [facility] SENIOR POLICY ADVISOR MD Member Role: Lifetime SENIOR POLICY ADVISOR Physician Address: Address: [address] [place] [address] Women's Health Veneer Stock Grader - [address] Name: Maeve Jones RN Position: [facility] RN Member Role: Primary Care Nurse Care Team Related Persons Name: MEG MARTIN Address: home [address] [place] [address] Name: JAKE RODRIGUES Address: [place] [address]
--- OUTSIDE RECORDS SUMMARY | 2023-09-19 10:39 | XMS_ITS | Continuity of Care Document ---
Author Organization [facility] Address [address] [address]- Care Team Providers Care Brand Sales Manager Name Role Phone Ruma Bravo MD Primary Care Physician [place] [facility] Date(s): 08/12/23 - 08/19/23 [facility] [address] [address]- Attending Physician: Savanah Charlton Admitting Physician: Savanah Charlton Referring Physician: Ruma Bravo MD Allergies, Adverse Reactions, Alerts Substance Reaction Severity Status atenolol Active codeine Active doxycycline 1 Moderate Active amoxicillin Active penicillin Active sulfa drugs Active shellfish Active ibuprofen Active aspirin Active tetracycline Active clindamycin Active erythromycin Active sulfADIAZINE All sulfa drugs Active metoprolol Active predniSONE Allergy to sulfa drugs Activ e caffeine Active Keflex Active Cefzil Active Tums Active Augmentin Active Levaquin Active Tylenol Active Bactrim Active Cats Active [place] Active Horses Active Latex rash Active Benadryl, Topical 2 Active Cleocin T Active Fosamax Active linezolid Persistent Mild Active Biaxin XL [...] 1 Refills, Maintenance, 01/19/23 10:23:00 EDT, Tablet, [facility] #[id number], Partial fill upon patient request if the [...] Gm, 0 Refills, Maintenance, 12/17/22 11:48:00 EDT, [facility][id number], Partial fill upon patient request if the prescription is for a schedule II opioid drug., 152, cm,... Start Date: 12/17/22 Status: Ordered diclofenac 1% topical gel 1 application, Topically, 4 times a day, # 100 Gm, 0 Refills, Maintenance, 12/25/22 11:12:00 EDT, [facility]55576, Partial fill upon patient request if the prescription is for a schedule II opioid drug., 152, cm, 12/25/22 10:26:00 EDT... Start Date: 12/25/22 Status: Ordered diphenhydrAMINE 50 mg oral tablet 1 tablet = 50 mg, By Mouth, Once, [address] scan, # 1 tablet, 2 Refills, Soft Stop, 10/15/22 14:04:00 EDT, [facility] #[id number], Partial fill upon patient request if the [...] 11/03/22 16:12:00 EDT, Route to Pharmacy Electronically, [facility] #[id number], Partial fill upon patient request if the [...] 3 Refills, Maintenance, 03/24/23 9:43:00 EST, Tablet, [facility] #[id number],... Start Date: 03/24/23 Status: Ordered lisinopril 5 mg oral tablet See Instructions, TAKE 1 TABLET BY MOUTH DAILY, # 90 tablet, Refills 1, Tot. Refills 1, Maintenance, 06/03/23 10:10:00 EST, Instructions Replace Required Details, Route to Pharmacy Electronically, [facility]/pharmacy #[id number], 150.2, cm, 05/11/23 11:17:00 EST,... Start Date: [...] 0 Refills, Maintenance, 10/21/22 16:47:00 EDT, [id number], Partial fill upon patient request if [...] on: 05/30/19 Sex Cardiology * Event Display: Stress Nuc with Regadenoson Please click on pdf link to open report Radiology * Event Display: NM Myocard Perf SPECT Multi Authored Date: [id number] Myocardial Perfusion Imaging Demographics Patient Name VERONICA Cole Female [employer] Room Number Height 59.1 inches Date of 1945 Weight 107.1 pounds Age 78 year(s) BSA 1.42 m2 Accession Number [id number] BMI 21.54 kg/m2 Date of study 08/12/2023 Resident Referring Physician Ruma Bravo MD Interpreting Physician Cesar Colunga MD NM Technologist Dimitrios Schneider Procedure Procedure Type: Myocardial Perfusion Imaging:WA Myocardial Perfusion Spect Multi Indications: Dyspnea on exertion and Chest pain. Risk Factors The patient risk factors include:hypertension. Stress Protocols Resting ECG Sinus tachycardia. Left bundle branch block. Resting HR:105 bpm Resting BP:158/78 mmHg Pre-stress physical exam: The patient's medications include Lisinopril, Ibandranate, Omeprazole. Patient's gate window was opened to 100% due to atrial premature beats . Stress Protocol:Pharmacologic - IV Regadenoson Dose: 0.4 mg Peak HR:142 bpm HR response: Not assessed Peak BP:158/78 mmHg (pharmacologic study) Predicted HR: 144 bpm HR recovery: Not Assessed % of predicted HR: 99 (Pharmacologic Study) Test duration: 1 min BP response: Resting hypertension Reason for termination:Protocol complete with appropriate response Functional capacity:Not assessed HR/BP product:15743 Time of RP Injection:00:57 min Chest pain:No chest pain ST Changes:No ST segment changes Arrhythmias Atrial Premature Beats, Isolated. Stress Interpretation Pharmacologic study only. Physiologic response not assessed - pharm stress. EKG nondiagnostic LBBB. Imaging Protocols - One Day Rest Stress Isotope:Tc99m Sestamibi Isotope: Tc99m Sestamibi Isotope dose:9 mCi IV Isotope dose:32.8 mCi IV Date:08/12/2023 Date:08/12/2023 Time to Rest Imagin minutes Time to Stress Imagin minutes Technique: Gated Technique: Gated Supine Supine Imaging Findings 1. There is satisfactory myocardial uptake of tracer. 2. In general, the nuclear image slices appear somewhat foreshortened. Conclusions Summary 1. There is normal uptake of tracer in the myocardium at rest and after pharmacological stress. No evidence of myocardial scar or ischemia. 2. There is normal left ventricular systolic function with ejection fraction greater than 70% at rest and after pharmacological stress. 3. The ECG findings will be reported separately. Signatures * Event Display: NM Myocard Perf SPECT Multi Authored Date: [id number] Patient Care team information Care Team Personnel Name: Yin Hsu Position: [facility] Onco RN Member Role: Primary Care Nurse Name: Ruma Bravo MD Position: [facility] Physician - Primary Care Member Role: PCP Address: Address: [address] [place] [address] Family Medicine [address] Name: Shikha Rivera RN Position: [facility] RN Member Role: Primary Care Nurse Name: Consuelo Louis RN Position: [facility] RN Member Role: Primary Care Nurse Name: Cherry Olsen MD Position: [facility] SUPERVISOR BLUEPRINTING AND PHOTOCOPY MD Member Role: Lifetime SUPERVISOR BLUEPRINTING AND PHOTOCOPY Physician Address: Address: [address] [place] [address] Women's Health Manufacturing Technology Analyst - [address] Name: Maeve Jones RN Position: [facility] RN Member Role: Primary Care Nurse Care Team Related Persons Name: MEG MARTIN Address: [address] [address] Name: JAKE RODRIGUES Address: [place] [address]
--- OUTSIDE RECORDS SUMMARY | 2023-09-19 10:40 | XMS_ITS | Continuity of Care Document ---
Author Organization [facility] Address [address] [place] [address]- Care Team Providers Care Patient Care Associate Name Role Phone Ruma Bravo MD Primary Care Physician Encounter [facility] Date(s): 05/05/23 - 06/04/23 [facility] [address] [place] [address]- Allergies, Adverse Reactions, Alerts Substance Reaction Severity [...] rash Active Cats Active Contrast Dye Active [place] Active Dogs Active Dust Active Horses Active [...] 01/19/23 10:23:00 EDT, Tablet, [facility] #[id number], Partial fill upon patient request if the [...] Gm, 0 Refills, Maintenance, 12/17/22 11:48:00 EDT, [facility] #[id number], Partial fill upon patient request if the prescription is for a schedule II opioid drug., 152, cm,... Start Date: 12/17/22 Status: Ordered diclofenac 1% topical gel 1 application, Topically, 4 times a day, # 100 Gm, 0 Refills, Maintenance, 12/25/22 11:12:00 EDT, [facility] #66676, Partial fill upon patient request if the prescription is for a schedule II opioid drug., 152, cm, 12/25/22 10:26:00 EDT... Start Date: 12/25/22 Status: Ordered diphenhydrAMINE 50 mg oral tablet 1 tablet = 50 mg, By Mouth, Once, [address] scan, # 1 tablet, 2 Refills, Soft Stop, 10/15/22 14:04:00 EDT, [facility] #[id number], Partial fill upon patient request if the [...] 11/03/22 16:12:00 EDT, Route to Pharmacy Electronically, [facility] #[id number], Partial fill upon patient request if the [...] 3 Refills, Maintenance, 03/24/23 9:43:00 EST, Tablet, [facility] #[id number],... Start Date: 03/24/23 Status: Ordered lisinopril 5 mg oral tablet See Instructions, TAKE 1 TABLET BY MOUTH DAILY, # 90 tablet, Refills 1, Tot. Refills 1, Maintenance, 06/03/23 10:10:00 EST, Instructions Replace Required Details, Route to Pharmacy Electronically, [facility]/pharmacy #5, 150.2, cm, 05/11/23 11:17:00 EST,... Start Date: 06/03/23 Status: Ordered lisinopril 5 mg oral tablet 5 mg, 1, tablet, By Mouth, Daily, # 90 tablet, Refills 1, Tot. Refills 1, Maintenance, 09/02/22 9:47:00 EDT, Route to Pharmacy Electronically, [facility] #[id number], 150, cm, 08/27/22 14:11:00 EDT, Height, 45.9, [...] Care Nurse Name: Ruma Bravo MD Position: [facility] Physician - Primary Care Member Role: PCP Address: Address: [address] [place] [address] [place] [address]- Name: Shikha Rivera RN Position: [facility] RN Member Role: Primary Care Nurse Name: Consuelo Louis RN Position: [facility] RN Member Role: Primary Care Nurse Name: Cherry Olsen MD Position: [facility] ELASTIC CUTTER MD Member Role: Lifetime ELASTIC CUTTER Physician Address: Address: [address] [place] [address] Women's Health Hedge Fund Manager - [place], [place] [address] Name: Maeve Jones RN Position: [facility] RN Member Role: Primary Care Nurse Care Team Related Persons Name: MEG MARTIN Address: home [address] [place] [id number] Name: JAKE RODRIGUES Address: [place] [address]
--- OUTSIDE RECORDS SUMMARY | 2023-09-19 10:40 | XMS_ITS | Continuity of Care Document ---
Author Organization [facility] Address [address] [address]- Care Team Providers Care Mentally Impaired Teacher Name Role Phone Lawrence GERBER, Ruma Bauer Primary Care Physician [place] [facility] [place] 07/14/23 - 08/13/23 [facility] [address] [address]- [place] Allergies, Adverse Reactions, Alerts Substance Reaction [...] rash Active Cats Active Contrast Dye Active [place] Active Dogs Active Dust Active Horses Active [...] 1 Refills, Maintenance, 01/19/23 10:23:00 EDT, Tablet, [facility] #[id number], Partial fill upon patient request if the [...] Gm, 0 Refills, Maintenance, 12/17/22 11:48:00 EDT, [facility] #[id number], Partial fill upon patient request if the prescription is for a schedule II opioid drug., 152, cm,... Start Date: 12/17/22 Status: Ordered diclofenac 1% topical gel 1 application, Topically, 4 times a day, # 100 Gm, 0 Refills, Maintenance, 12/25/22 11:12:00 EDT, [facility] #[id number], Partial fill upon patient request if the prescription is for a schedule II opioid drug., 152, cm, 12/25/22 10:26:00 EDT... Start Date: 12/25/22 Status: Ordered diphenhydrAMINE 50 mg oral tablet 1 tablet = 50 mg, By Mouth, Once, [address] scan, # 1 tablet, 2 Refills, Soft Stop, 10/15/22 14:04:00 EDT, [facility] #[id number], Partial fill upon patient request if the [...] 11/03/22 16:12:00 EDT, Route to Pharmacy Electronically, [facility] #[id number], Partial fill upon patient request if the [...] 3 Refills, Maintenance, 03/24/23 9:43:00 EST, Tablet, [facility] #[id number],... Start Date: 03/24/23 Status: Ordered lisinopril 5 mg oral tablet See Instructions, TAKE 1 TABLET BY MOUTH DAILY, # 90 tablet, Refills 1, Tot. Refills 1, Maintenance, 06/03/23 10:10:00 EST, Instructions Replace Required Details, Route to Pharmacy Electronically, [facility]/pharmacy #[id number], 150.2, cm, 05/11/23 11:17:00 EST,... Start Date: [...] Care Team Personnel Name: Yin Hsu Position: [facility] Onco RN Member Role: Primary Care Nurse Name: Ruma Bravo MD Position: [facility] Physician - Primary Care Member Role: PCP Address: Address: [address] [place] [address] [place] [address]- Name: Shikha Rivera RN Position: S RN Member Role: Primary Care Nurse Name: Consuelo Louis RN Position: S RN Member Role: Primary Care Nurse Name: Cherry Olsen MD Position: [facility] FLOUR MIXER HELPER MD Member Role: Lifetime FLOUR MIXER HELPER Physician Address: Address: [address] [place], [place] [address] [facility] [place] [address]- Name: Maeve Jones RN Position: S RN Member Role: Primary Care Nurse Care Team Related Persons Name: MEG MARTIN Address: [address] [address] Name: JAKE RODRIGUES Address: [place] [address]
[2023-09-19 10:41] VITALS: BP 162/78; PULSE 98; RESP 18; TEMP 36.6; O2SAT 100
--- OUTSIDE RECORDS SUMMARY | 2023-09-19 10:41 | XMS_ITS | Continuity of Care Document ---
Author Organization [facility] Address [address] [place] [address] [address] [place] [address]- Care Team Providers Care Senior Contracts Administrator Name Role Phone Lawrence GERBER, Ruma Bauer Primary Care Physician [place] [facility] [place](s): 08/13/23 - 09/12/[address] [place] [address]- Allergies, Adverse Reactions, Alerts Substance Reaction Severity Status atenolol Active codeine Active clindamycin Active amoxicillin Active penicillin Active caffeine Active sulfa drugs Active shellfish Active ibuprofen Active aspirin Active doxycycline 1 Moderate Active tetracycline Active erythromycin Active sulfADIAZINE All sulfa drugs Active metoprolol Active predniSONE Allergy to sulfa drugs Activ e Keflex Active Cefzil Active Tums Active Augmentin Active Levaquin Active Tylenol Active Biaxin XL Active Contrast Dye Active Dogs Active Dust Active Horses Active Mold Active Nuts Active Benadryl, Topical 2 Active Cleocin T Active Fosamax Active Bactrim Active linezolid Persistent Mild Active Adhesive Bandage rash Active Cats Active [place] Active Latex rash Active Soy Products Active [...] 01/19/23 10:23:00 EDT, Tablet, [facility] #[id number], Partial fill upon patient request if the [...] Gm, 0 Refills, Maintenance, 12/17/22 11:48:00 EDT, [facility] #[id number], Partial fill upon patient request if the prescription is for a schedule II opioid drug., 152, cm,... Start Date: 12/17/22 Status: Ordered diclofenac 1% topical gel 1 application, Topically, 4 times a day, # 100 Gm, 0 Refills, Maintenance, 12/25/22 11:12:00 EDT, [facility] #[id number], Partial fill upon patient request if the prescription is for a schedule II opioid drug., 152, cm, 12/25/22 10:26:00 EDT... Start Date: 12/25/22 Status: Ordered diphenhydrAMINE 50 mg oral tablet 1 tablet = 50 mg, By Mouth, Once, [address] scan, # 1 tablet, 2 Refills, Soft Stop, 10/15/22 14:04:00 EDT, [facility] #[id number], Partial fill upon patient request if the [...] 11/03/22 16:12:00 EDT, Route to Pharmacy Electronically, [facility] #[id number], Partial fill upon patient request if the [...] 3 Refills, Maintenance, 03/24/23 9:43:00 EST, Tablet, [facility] #[id number],... Start Date: 03/24/23 Status: Ordered lisinopril 5 mg oral tablet See Instructions, TAKE 1 TABLET BY MOUTH DAILY, # 90 tablet, Refills 1, Tot. Refills 1, Maintenance, 06/03/23 10:10:00 EST, Instructions Replace Required Details, Route to Pharmacy Electronically, [facility]/pharmacy #[id number], 150.2, cm, 05/11/23 11:17:00 EST,... Start Date: [...] Care team information Care Team Personnel Name: iYn Hsu Position: [facility] Onco RN Member Role: Primary Care Nurse Name: Ruma Bravo MD Position: [facility] Physician - Primary Care Member Role: PCP Address: Address: [address] [place] [address] [place] [address]- Name: Shikha Rivera RN Position: S RN Member Role: Primary Care Nurse Name: Consuelo Louis RN Position: S RN Member Role: Primary Care Nurse Name: Cherry Olsen MD Position: [facility] POTATO PEELER MD Member Role: Lifetime POTATO PEELER Physician Address: Address: [address] [place] [address] [facility] [address] - [place], [place] [address] Name: Maeve Jones RN Position: S RN Member Role: Primary Care Nurse Care Team Related Persons Name: MEG MARTIN Address: [address] [address] Name: JAKE RODRIGUES Address: [place] [address]
--- OUTSIDE RECORDS SUMMARY | 2023-09-19 10:41 | XMS_ITS | Continuity of Care Document ---
Author Organization [facility] Address [address] [place] [address]- Care Team Providers Care Fret Saw Operator Name Role Phone Ruma Bravo MD Primary Care Physician En[place] [facility] [place] 05/11/23 - 06/10/23 [facility] [address] [place] [address]- Allergies, Adverse Reactions, Alerts Substance Reaction Severity [...] rash Active Cats Active Contrast Dye Active [place] Active Dogs Active Dust Active Horses Active [...] 01/19/23 10:23:00 EDT, Tablet, [facility] #[id number], Partial fill upon patient request if the [...] Gm, 0 Refills, Maintenance, 12/17/22 11:48:00 EDT, [facility] #[id number], Partial fill upon patient request if the prescription is for a schedule II opioid drug., 152, cm,... Start Date: 12/17/22 Status: Ordered diclofenac 1% topical gel 1 application, Topically, 4 times a day, # 100 Gm, 0 Refills, Maintenance, 12/25/22 11:12:00 EDT, [facility] #[id number], Partial fill upon patient request if the prescription is for a schedule II opioid drug., 152, cm, 12/25/22 10:26:00 EDT... Start Date: 12/25/22 Status: Ordered diphenhydrAMINE 50 mg oral tablet 1 tablet = 50 mg, By Mouth, Once, [address] scan, # 1 tablet, 2 Refills, Soft Stop, 10/15/22 14:04:00 EDT, [facility] #[id number], Partial fill upon patient request if the [...] 11/03/22 16:12:00 EDT, Route to Pharmacy Electronically, [facility][id number], Partial fill upon patient request if the [...] 3 Refills, Maintenance, 03/24/23 9:43:00 EST, Tablet, [facility] #[id number],... Start Date: 03/24/23 Status: Ordered lisinopril 5 mg oral tablet See Instructions, TAKE 1 TABLET BY MOUTH DAILY, # 90 tablet, Refills 1, Tot. Refills 1, Maintenance, 06/03/23 10:10:00 EST, Instructions Replace Required Details, Route to Pharmacy Electronically, [facility]/pharmacy #5, 150.2, cm, 05/11/23 11:17:00 EST,... Start Date: 06/03/23 Status: Ordered lisinopril 5 mg oral tablet 5 mg, 1, tablet, By Mouth, Daily, # 90 tablet, Refills 1, Tot. Refills 1, Maintenance, 09/02/22 9:47:00 EDT, Route to Pharmacy Electronically, [facility] #[id number], 150, cm, 08/27/22 14:11:00 EDT, Height, 45.9, [...] Care Nurse Name: Ruma Bravo MD Position: [facility] Physician - Primary Care Member Role: PCP Address: Address: [address] [place] [address] [place] [address]- Name: Shikha Rivera RN Position: [facility] RN Member Role: Primary Care Nurse Name: Consuelo Louis RN Position: [facility] RN Member Role: Primary Care Nurse Name: Cherry Olsen MD Position: [facility] COLORIST PHOTOGRAPHY MD Member Role: Lifetime COLORIST PHOTOGRAPHY Physician Address: Address: [address] [place] [address] Women[facility] [place] [address]- Name: Maeve Jones RN Position: [facility] RN Member Role: Primary Care Nurse Care Team Related Persons Name: MEG MARTIN Address: home [address] [place] [address] Name: JAKE RODRIGUES Address: [place] [address]
--- OUTSIDE RECORDS SUMMARY | 2023-09-19 10:42 | XMS_ITS | Continuity of Care Document ---
Author Organization [facility] Address [address] [address]- Care Team Providers Care Share Holder Name Role Phone Lawrence GERBER, Ruma Bauer Primary Care Physician [place] [facility] [place]12[place]23 [place] 09/11/23 [facility] [address] [address]- Attending Physician: Will Wilson Admitting Physician: AdmtrWill [...] Active Adhesive Bandage rash Active Cats Active [place] Active Mold Active Nuts Active Soy Products [...] 1 Refills, Maintenance, 01/19/23 10:23:00 EDT, Tablet, [facility] #[id number], Partial fill upon patient request if the [...] 0 Refills, Maintenance, 12/17/22 11:48:00 EDT, Gel, [facility] #[id number], Partial fill upon patient request if the prescription is for a schedule II opioid drug., 152, cm,... Start Date: 12/17/22 Status: Ordered diclofenac 1% topical gel 1 application, Topically, 4 times a day, # 100 Gm, 0 Refills, Maintenance, 12/25/22 11:12:00 EDT, Gel, [facility] #[id number], Partial fill upon patient request if the prescription is for a schedule II opioid drug., 152, cm, 12/25/22 10:26:00 EDT... Start Date: 12/25/22 Status: Ordered diphenhydrAMINE 50 mg oral tablet 1 tablet = 50 mg, By Mouth, Once, [address] scan, # 1 tablet, 2 Refills, Soft Stop, 10/15/22 14:04:00 EDT, [facility] #[id number], Partial fill upon patient request if the [...] 11/03/22 16:12:00 EDT, Route to Pharmacy Electronically, [facility] #[id number], Partial fill upon patient request if the [...] 3 Refills, Maintenance, 03/24/23 9:43:00 EST, Tablet, [facility] #[id number],... Start Date: 03/24/23 Status: Ordered lisinopril 5 mg oral tablet See Instructions, TAKE 1 TABLET BY MOUTH DAILY, # 90 tablet, Refills 1, Tot. Refills 1, Maintenance, 06/03/23 10:10:00 EST, Instructions Replace Required Details, Route to Pharmacy Electronically, [facility]/pharmacy #[id number], 150.2, cm, 05/11/23 11:17:00 EST,... Start Date: [...] Care Team Personnel Name: Yin Hsu Position: [facility] Onco RN Member Role: Primary Care Nurse Name: Ruma Bravo MD Position: [facility] Physician - Primary Care Member Role: PCP Address: Address: [address] [facility] - [place], [place] [address] Name: Shikha Rivera RN Position: [facility] RN Member Role: Primary Care Nurse Name: Consuelo Louis RN Position: [facility] RN Member Role: Primary Care Nurse Name: Cherry Olsen MD Position: [facility] SPECIALTY MOLDER MD Member Role: Lifetime SPECIALTY MOLDER Physician [facility]: [facility] [employer] - [place], [place] [address] Name: Maeve Jones RN Position: [facility] RN Member Role: Primary Care Nurse Care Team Related Persons Name: MEG MARTIN Address: home [address] [place] [id number] Name: JAKE RODRIGUES Address: [place] [address]
--- OUTSIDE RECORDS SUMMARY | 2023-09-19 10:42 | XMS_ITS | Continuity of Care Document ---
Author Organization [facility] Address [address] [address]- Care Team Providers Care Pickle Maker Name Role Phone Ruma Bravo MD Primary Care Physician [place] [facility] [place] 07/09/23 - 07/16/23 [facility] [address] [address]- Attending Physician: Afsaneh Rosen MD Admitting Physician: Afsaneh Rosen MD Referring Physician: Afsaneh Rosen MD Allergies, Adverse Reactions, Alerts Substance Reaction [...] rash Active Cats Active Contrast Dye Active [place] Active Dogs Active Dust Active Horses Active [...] 1 Refills, Maintenance, 01/19/23 10:23:00 EDT, Tablet, [facility] #[id number], Partial fill upon patient request if the [...] 0 Refills, Maintenance, 12/17/22 11:48:00 EDT, Gel, [facility] #[id number], Partial fill upon patient request if the prescription is for a schedule II opioid drug., 152, cm,... Start Date: 12/17/22 Status: Ordered diclofenac 1% topical gel 1 application, Topically, 4 times a day, # 100 Gm, 0 Refills, Maintenance, 12/25/22 11:12:00 EDT, Gel, [facility] #[id number], Partial fill upon patient request if the prescription is for a schedule II opioid drug., 152, cm, 12/25/22 10:26:00 EDT... Start Date: 12/25/22 Status: Ordered diphenhydrAMINE 50 mg oral tablet 1 tablet = 50 mg, By Mouth, Once, [address] scan, # 1 tablet, 2 Refills, Soft Stop, 10/15/22 14:04:00 EDT, [facility] #[id number], Partial fill upon patient request if the [...] 11/03/22 16:12:00 EDT, Route to Pharmacy Electronically, [facility] #[id number], Partial fill upon patient request if the [...] 3 Refills, Maintenance, 03/24/23 9:43:00 EST, Tablet, [facility] #[id number],... Start Date: 03/24/23 Status: Ordered lisinopril 5 mg oral tablet See Instructions, TAKE 1 TABLET BY MOUTH DAILY, # 90 tablet, Refills 1, Tot. Refills 1, Maintenance, 06/03/23 10:10:00 EST, Instructions Replace Required Details, Route to Pharmacy Electronically, [facility]/pharmacy #[id number], 150.2, cm, 05/11/23 11:17:00 EST,... Start Date: [...] Care Team Personnel Name: Yin Hsu Position: [facility] Onco RN Member Role: Primary Care Nurse Name: Ruma Bravo MD Position: [facility] Physician - Primary Care Member Role: PCP Address: Address: [address] [facility] - [place], [place] [address] Name: Shikha Rivera RN Position: [facility] RN Member Role: Primary Care Nurse Name: Consuelo Louis RN Position: [facility] RN Member Role: Primary Care Nurse Name: Cherry Olsen MD Position: [facility] HEAD OF PRODUCT MD Member Role: Lifetime HEAD OF PRODUCT Physician Address: Address: [address] [facility] Women's Health Game Preserve Manager - [place], [place] [address] Name: Maeve Jones RN Position: [facility] RN Member Role: Primary Care Nurse Care Team Related Persons Name: MEG MARTIN Address: home [address] [place] [address] Name: JAKE RODRIGUES Address: [place] [address]
--- OUTSIDE RECORDS SUMMARY | 2023-09-19 10:42 | XMS_ITS | Continuity of Care Document ---
Author Organization [facility] Address [address] [address]- Care Team Providers Care Drier And Pulverizer Tender Name Role Phone Ruma Bravo MD Primary Care Physician En[place] [facility] [place] Date(s[place] 05/11/23 - 05/18/23 [facility] [address] [address]- Encounter Diagnosis LBBB - Left bundle branch block(Discharge Diagnosis) - 05/13/23 Diastolic dysfunction(Discharge Diagnosis) - 05/13/23 Heart failure, left, with LVEF 41-49%(Discharge Diagnosis) - 05/13/23 Attending Physician: Savanah Charlton Admitting Physician: Savanah Charlton Referring Physician: Ruma Bravo MD Allergies, Adverse Reactions, Alerts Substance Reaction Severity Status atenolol Active codeine Active ibuprofen Active doxycycline 1 Moderate Active tetracycline Active erythromycin Active amoxicillin Active penicillin Active [...] rash Active Cats Active Contrast Dye Active [place] Active Dogs Active Dust Active Horses Active Mold Active Nuts Active Other Food Allergy chicken broccoli other veggetables tomatoes onions cucumbers lettuce peas carrots wheat rash hives itchy Active Soy Products Active clindamycin Active caffeine Active Latex rash Active fentaNYL Active 1Rash 2Pt States she [...] 1 Refills, Maintenance, 01/19/23 10:23:00 EDT, Tablet, [facility] #[id number], Partial fill upon patient [...] Gm, 0 Refills, Maintenance, 12/17/22 11:48:00 EDT, [facility] #[id number], Partial fill upon patient request if the prescription is for a schedule II opioid drug., 152, cm,... Start Date: 12/17/22 Status: Ordered diclofenac 1% topical gel 1 application, Topically, 4 times a day, # 100 Gm, 0 Refills, Maintenance, 12/25/22 11:12:00 EDT, [facility] #[id number], Partial fill upon patient request if the prescription is for a schedule II opioid drug., 152, cm, 12/25/22 10:26:00 EDT... Start Date: 12/25/22 Status: Ordered diphenhydrAMINE 50 mg oral tablet 1 tablet = 50 mg, By Mouth, Once, [address] scan, # 1 tablet, 2 Refills, Soft Stop, 10/15/22 14:04:00 EDT, [facility] #[id number], Partial fill upon patient request if the [...] 11/03/22 16:12:00 EDT, Route to Pharmacy Electronically, [facility] #[id number], Partial fill upon patient request if the [...] 3 Refills, Maintenance, 03/24/23 9:43:00 EST, Tablet, [facility] #[id number],... Start Date: 03/24/23 Status: Ordered lisinopril 5 mg oral tablet 5 mg, 1, tablet, By Mouth, Daily, # 90 tablet, Refills 1, Tot. Refills 1, Maintenance, 09/02/22 9:47:00 EDT, Route to Pharmacy Electronically, [facility] #[id number], 150, cm, 08/27/22 14:11:00 EDT, Height, 45.9, [...] - Left bundle branch block Discharge Diagnosis 05/13/23 Diastolic dysfunction Discharge Diagnosis 05/13/23 Heart failure, left, with LVEF 41-49% Discharge Diagnosis 05/13/23 Vital Signs Most recent to oldest [Reference Range]: 1 Height 150.2 cm (05/11/23 11:17 AM) Weight 48.2 kg (05/11/23 11:17 AM) Oxygen Saturation [94-100 %] 99 % (05/11/23 11:17 AM) Pulse Rate [55-90 bpm] 127 bpm *H* (05/11/23 11:17 AM) Body Mass Index [18.5-24.99 kg/m2] 21.37 kg/m2 (05/11/23 11:17 AM) Blood Pressure [90-138/55-84 mm Hg] 149/ 84mm Hg *H* (05/11/23 11:17 AM) Blood pressure sites Arm, left (05/11/23 11:17 AM) Weight Obtained Via Standing scale (05/11/23 11:17 AM) Social History Social History Type Response Smoking Status Never (less than 100 in lifetime) entered on: 05/30/19 Sex EKG study * Event Display: ECG 12-Lead Authored Date: Please click on pdf link to open report * Event Display: ECG 12-Lead Authored Date: Ventricular Rate: 127 BPM Atrial Rate: 127 BPM P-R Interval: 128 ms QRS Duration: 110 ms Q-T Interval: 320 ms QTC Calculation(Bazett): 465 ms P [place]: 81 degrees R [place]: -25 degrees T [place]: 104 degrees Poor data quality, interpretation may be adversely affected Sinus tachycardia Possible Left atrial enlargement Incomplete left bundle branch block ST and T wave abnormality, consider lateral ischemia Abnormal ECG When compared with ECG of 17-FEB-2023 09:05, Rate has increased Confirmed by CARLOS DESOUZA ([id number]) on 05/13/2023 9:32:44 AM Dunning: CARLOS DESOUZA Patient Care team information Care Team Personnel Name: Yin Hsu Position: S Onco RN Member Role: Primary Care Nurse Name: Ruma Bravo MD Position: [facility] Physician - Primary Care Member Role: PCP Address: Address: [address] [place] [address] Medicine - [address] Name: Shikha Rivera RN Position: [facility] RN Member Role: Primary Care Nurse Name: Consuelo Louis RN Position: [facility] RN Member Role: Primary Care Nurse Name: Cherry Olsen MD Position: [facility] MACHINE FANCY STITCHER MD Member Role: Lifetime MACHINE FANCY STITCHER Physician Address: Address: [address] [place] [address]'s Health Mortgage Closing Clerk [place], [place] [address] Name: Maeve Jones RN Position: [facility] RN Member Role: Primary Care Nurse Care Team Related Persons Name: MEG MARTIN Address: home [address] [place] [address] Name: JAKE RODRIGUES Address: [place] [address]
--- OUTSIDE RECORDS SUMMARY | 2023-09-19 10:43 | XMS_ITS | Continuity of Care Document ---
Author Organization [facility] Address [address] [place] [address]- Care Team Providers Care Windows Desktop Engineer Name Role Phone Ruma Bravo MD Primary Care Physician [place] [facility] [place] 07/14/23 - 08/13/23 [facility] [address] [place] [address]- Allergies, Adverse Reactions, Alerts Substance Reaction Severity [...] rash Active Cats Active Contrast Dye Active [place] Active Dogs Active Dust Active Horses Active [...] 01/19/23 10:23:00 EDT, Tablet, [facility] #[id number], Partial fill upon patient request if the [...] Gm, 0 Refills, Maintenance, 12/17/22 11:48:00 EDT, [facility] #[id number], Partial fill upon patient request if the prescription is for a schedule II opioid drug., 152, cm,... Start Date: 12/17/22 Status: Ordered diclofenac 1% topical gel 1 application, Topically, 4 times a day, # 100 Gm, 0 Refills, Maintenance, 12/25/22 11:12:00 EDT, [facility] #[id number], Partial fill upon patient request if the prescription is for a schedule II opioid drug., 152, cm, 12/25/22 10:26:00 EDT... Start Date: 12/25/22 Status: Ordered diphenhydrAMINE 50 mg oral tablet 1 tablet = 50 mg, By Mouth, Once, [address] scan, # 1 tablet, 2 Refills, Soft Stop, 10/15/22 14:04:00 EDT, [facility] #[id number], Partial fill upon patient request if the [...] 11/03/22 16:12:00 EDT, Route to Pharmacy Electronically, [facility] #[id number], Partial fill upon patient request if the [...] 3 Refills, Maintenance, 03/24/23 9:43:00 EST, Tablet, [facility] #[id number],... Start Date: 03/24/23 Status: Ordered lisinopril 5 mg oral tablet See Instructions, TAKE 1 TABLET BY MOUTH DAILY, # 90 tablet, Refills 1, Tot. Refills 1, Maintenance, 06/03/23 10:10:00 EST, Instructions Replace Required Details, Route to Pharmacy Electronically, [facility]/pharmacy #[id number], 150.2, cm, 05/11/23 11:17:00 EST,... Start Date: [...] Care Nurse Name: Ruma Bravo MD Position: [facility] Physician - Primary Care Member Role: PCP Address: Address: [address] [place] [address] [place] [address]- Name: Shikha Rivera RN Position: S RN Member Role: Primary Care Nurse Name: Consuelo Louis RN Position: S RN Member Role: Primary Care Nurse Name: Cherry Olsen MD Position: [facility] ALUMNI COORDINATOR MD Member Role: Lifetime ALUMNI COORDINATOR Physician Address: Address: [address] [place] [address] Women's Health Food Analyst - [place], [place] [address] Name: Maeve Jones RN Position: S RN Member Role: Primary Care Nurse Care Team Related Persons Name: MEG MARTIN Address: [address] [address] Name: JAKE RODRIGUES Address: [place] [address]
--- OUTSIDE RECORDS SUMMARY | 2023-09-19 10:44 | XMS_ITS | Continuity of Care Document ---
Author Organization [facility] Address [address] [address]- Care Team Providers Care Geographic Analyst Name Role Phone Lawrence GERBER, Ruma Bauer Primary Care Physician Encounter [facility] Date(s): 05/27/23 - 06/26/23 [facility] [address] [address]- [place] Allergies, Adverse Reactions, Alerts Substance Reaction [...] rash Active Cats Active Contrast Dye Active [place] Active Dogs Active Dust Active Horses Active [...] 1 Refills, Maintenance, 01/19/23 10:23:00 EDT, Tablet, [facility] #[id number], Partial fill upon patient request if the [...] Gm, 0 Refills, Maintenance, 12/17/22 11:48:00 EDT, [facility][id number], Partial fill upon patient request if the prescription is for a schedule II opioid drug., 152, cm,... Start Date: 12/17/22 Status: Ordered diclofenac 1% topical gel 1 application, Topically, 4 times a day, # 100 Gm, 0 Refills, Maintenance, 12/25/22 11:12:00 EDT, [facility] #[id number], Partial fill upon patient request if the prescription is for a schedule II opioid drug., 152, cm, 12/25/22 10:26:00 EDT... Start Date: 12/25/22 Status: Ordered diphenhydrAMINE 50 mg oral tablet 1 tablet = 50 mg, By Mouth, Once, [address] scan, # 1 tablet, 2 Refills, Soft Stop, 10/15/22 14:04:00 EDT, [facility] #[id number], Partial fill upon patient request if the [...] 11/03/22 16:12:00 EDT, Route to Pharmacy Electronically, [facility] #[id number], Partial fill upon patient request if the [...] 3 Refills, Maintenance, 03/24/23 9:43:00 EST, Tablet, [facility] #[id number],... Start Date: 03/24/23 Status: Ordered lisinopril 5 mg oral tablet See Instructions, TAKE 1 TABLET BY MOUTH DAILY, # 90 tablet, Refills 1, Tot. Refills 1, Maintenance, 06/03/23 10:10:00 EST, Instructions Replace Required Details, Route to Pharmacy Electronically, [facility]/pharmacy #[id number], 150.2, cm, 05/11/23 11:17:00 EST,... Start Date: [...] Team Personnel Name: Shadi , Yin Position: [facility] Onco RN Member Role: Primary Care Nurse Name: Ruma Bravo MD Position: [facility] Physician - Primary Care Member Role: PCP Address: Address: [address] [place] [address] Family Medicine - [address] Name: Shikha Rivera RN Position: [facility] RN Member Role: Primary Care Nurse Name: Consuelo Louis RN Position: [facility] RN Member Role: Primary Care Nurse Name: Cherry Olsen MD Position: [facility] METAL SMELTER MD Member Role: Lifetime METAL SMELTER Physician Address: Address: [address] [place] [address] Women's Health Assistant Store Manager - [address] Name: Maeve Jones RN Position: [facility] RN Member Role: Primary Care Nurse Care Team Related Persons Name: MEG MARTIN Address: home [address] [place] [address] Name: JAKE RODRIGUES Address: [place] [address]
--- OUTSIDE RECORDS SUMMARY | 2023-09-19 10:45 | XMS_ITS | Continuity of Care Document ---
Author Organization [facility] Address [address] [address]- Care Team Providers Care Casing Crew Pusher Name Role Phone Ruma Bravo MD Primary Care Physician Encounter [facility] Date(s): 07/20/23 - 07/27/23 [facility] [address] [address]- Encounter Diagnosis LBBB - Left bundle branch block(Discharge Diagnosis) - 07/22/23 Diastolic dysfunction(Discharge Diagnosis) - 07/22/23 HTN (hypertension)(Discharge Diagnosis) - 07/22/23 Tachycardia(Discharge Diagnosis) - 07/22/23 Attending Physician: Savanah Charlton Admitting Physician: Savanah [...] Active Cats Active Contrast Dye Active [place] Active Dogs Active Dust Active Horses Active [...] 1 Refills, Maintenance, 01/19/23 10:23:00 EDT, Tablet, [facility] #[id number], Partial fill upon patient request if the [...] Gm, 0 Refills, Maintenance, 12/17/22 11:48:00 EDT, [facility] #[id number], Partial fill upon patient request if the prescription is for a schedule II opioid drug., 152, cm,... Start Date: 12/17/22 Status: Ordered diclofenac 1% topical gel 1 application, Topically, 4 times a day, # 100 Gm, 0 Refills, Maintenance, 12/25/22 11:12:00 EDT, Gel, [facility] #[id number], Partial fill upon patient request if the prescription is for a schedule II opioid drug., 152, cm, 12/25/22 10:26:00 EDT... Start Date: 12/25/22 Status: Ordered diphenhydrAMINE 50 mg oral tablet 1 tablet = 50 mg, By Mouth, Once, [address] scan, # 1 tablet, 2 Refills, Soft Stop, 10/15/22 14:04:00 EDT, [facility] #[id number], Partial fill upon patient request if the [...] 11/03/22 16:12:00 EDT, Route to Pharmacy Electronically, [facility] #[id number], Partial fill upon patient request if the [...] 3 Refills, Maintenance, 03/24/23 9:43:00 EST, Tablet, [facility] #[id number],... Start Date: 03/24/23 Status: Ordered lisinopril 5 mg oral tablet See Instructions, TAKE 1 TABLET BY MOUTH DAILY, # 90 tablet, Refills 1, Tot. Refills 1, Maintenance, 06/03/23 10:10:00 EST, Instructions Replace Required Details, Route to Pharmacy Electronically, [facility]/pharmacy #[id number], 150.2, cm, 05/11/23 11:17:00 EST,... [...] - Left bundle branch block Discharge Diagnosis 07/22/23 Diastolic dysfunction Discharge Diagnosis 07/22/23 HTN (hypertension) Discharge Diagnosis 07/22/23 Tachycardia Discharge Diagnosis 07/22/23 Vital Signs Most recent to oldest [Reference Range]: 1 Height 150.2 cm (07/20/23 10:04 AM) Weight 48.4 kg (07/20/23 10:04 AM) Oxygen Saturation [94-100 %] 99 % (07/20/23 10:04 AM) Pulse Rate [55-90 bpm] 100 bpm *H* (07/20/23 10:04 AM) Body Mass Index [18.5-24.99 kg/m2] 21.45 kg/m2 (07/20/23 10:04 AM) Blood Pressure [90-138/55-84 mm Hg] 142/ 72mm Hg *H* (07/20/23 10:04 AM) Blood pressure sites Arm, left (07/20/23 10:04 AM) Weight Obtained Via Standing scale (07/20/23 10:04 AM) Social History Social History Type Response Smoking Status Never (less than 100 in lifetime) entered on: 05/30/19 Sex Cardiology Outpatient Note * Carlton BARRERA, Savanah Horner: PERFORM Event Display: Cardiology Note Office Authored Date: Patient: ??NAUN MARTIN ? Age:??78 Years?Sex:??Female?:??1945?? Patient Hx Cardiology Shared Clinical Summary 1.?? Hypertension 2.?? LBBB Provider Clinical Summary ?? Assessment:?? Naun is a pleasant 78-year-old woman with??a??history??of??chronic left bundle branch block, moderate diastolic dysfunction and slightly reduced LVEF of 45%.? Plan: Hypertension:??Intermittent, blood pressure stable today. Chronic left bundle branch block pattern Moderate diastolic dysfunction - stable,??repeat echo in??March Tachycardia ??Slightly reduced LVEF - we will evaluate her through Regadenoson (LBBB) nuclear stress testing.??We are reassured by a negative nuclear stress test??from 2020. Consider other reasons for CM, tachyinduced vs. amyloid. Edema: low salt diet, compression stockings, consider low dose diuretic. ?Naun??is anticipating??rectal/hemorrhoid??surgery by Dr. Cabezas??with surgery initially??scheduled on June 24, 2023 but post-poned.?She has been stable from a cardiac standpoint recentlywith??much better blood pressure and heart rate control.?? Her LVEF is slightly reduced??possibly secondary to??tachycardia.?Has not had any issues with chest pain, breathlessness,??lightheadedness, or syncope. At this point??she is at low risk??for cardiac event??at the time of this moderate risk surgery. We will get a nuclear??stress test.?? There are no contraindications to proceeding??with hemorrhoidsurgery from a cardiac standpoint. Thank you for allowing us to participate in her care. Savanah Vincent PA-C History of Present Illness/Interval History I had the pleasure of seeing Naun??here in cardiology??in follow-up to her recent ZIO monitor??for??3-1/2 days.?? Since I saw Naun??last??she unfortunately had a viral illness??at the time of feeling very weak she fell off the toilet??and??injured??her right torso.?? Chest x-ray was done??and Elvis not believe there were any rib??fractures.?? The viral illness has resolved. ??Naun??reports good blood pressures at home, in fact today her??reading was 119/69??with a pulse of 80. She has not had any chest pain or??significant breathlessness. She is concerned about possible??cellulitis at her right ankle??and does not want to reschedule herrectal surgery until she is sure??that that has cleared up.?? Naun??mentions that her??right??ankle was evaluated by her casket upholsterer to does not??think that it is a cellulitis??and suggest that it is a varicose bruising. ?? We had a chance to review her ZIO monitor??which showed a minimum heart rate of 61, maximum heart rate of 203, and an average heart rate of 89.?? 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 There were 5 SVT episodes with the??fastest interval lasting 10 beats??to as highas 203 bpm. ??Longest SVT was 12 beats??with an average rate of 156 bpm.?? There were PVCs??and PACs??less than 1% burden. Review of Systems discussed, see HPI Physical Exam Vitals & Measurements HR:??100??(Peripheral)?? BP:??142/72?? SpO2:??99%?? HT:??150.2??cm?? WT:??48.4??kg?? BMI:??21.45?? Weight lb/oz: 106 lb 11 oz Deferred for lengthy discussion.?? Blood pressure stable today, pulse 100.?? I did look at her right ankle??as she was concerned that there was a cellulitis but??that does not appear to be the case. ??She does have some bilateral ankle edema??right greater than left. Assessment/Plan 1.??LBBB - Left bundle branch block 2.??Diastolic dysfunction 3.??HTN (hypertension) 4.??Tachycardia See provider clinical summary above Medical Decision Making LOW - based on 2 or more self-limited or minor problems, 1 stable chronic illness or 1 acute, uncomplicated illness or injury; ext note / test / order = 2, OR requiring an independent historian(s); and/or Low risk of morbidity from add'l management Allergies doxycycline linezolid Adhesive Bandage??(rash) Augmentin Bactrim Benadryl, Topical Biaxin XL Cats Cefzil Cleocin T Contrast Dye Buffalo Dogs Dust Fosamax Horses Keflex Latex??(rash) Levaquin Mold Nuts Other Food Allergy??(chicken broccoli, other veggetables tomatoes onions cucumbers lettuce peas carrots, wheat rash hives itchy) Soy Products Tums Tylenol amoxicillin aspirin atenolol caffeine clindamycin codeine erythromycin fentaNYL ibuprofen metoprolol penicillin predniSONE??(Allergy to sulfa drugs) shellfish sulfADIAZINE??(All sulfa drugs) sulfa drugs tetracycline Home Medications baclofen 5 mg oral tablet, [...] 1 tablet, By Mouth, Every 30 days, 3 refills lisinopril 5 mg oral tablet, See Instructions, 1 refills Omeprazole, 40 mg, By Mouth, Daily physical therapy, See Instructions Readi-Cat 2 oral suspension, See Instructions Lab Results Cardiology Labs WBC: 7.9 k/mm3 (05/07/23) RBC:??5.6 m/mm3??High (05/07/23) Hgb: 13.5 Gm/dL (05/07/23) Hct: 42.2 % (05/07/23) MCV:??75.4 femtoliters??Low (05/07/23) MCH:??24.1 pg??Low (05/07/23) MCHC:??32 g/dL??Low (05/07/23) Platelet Count: 337 k/mm3 (05/07/23) RDW-SD: 41.4 femtoliters (05/07/23) Nucleated RBC (Automated): 0 #/100 WBC'S (05/07/23) Abs. Neut: 4.8 k/mm3 (05/07/23) Abs. Lymph: 1.8 k/mm3 (05/07/23) Abs. [place]: 0.7 k/mm3 (05/07/23) Abs. Eo:??0.6 k/mm3??High (05/07/23) Abs. Baso: 0.1 k/mm3 (05/07/23) Neut %: 60.9 % (05/07/23) [place] %: 8.3 % (05/07/23) Eos %:??7.1 %??High (05/07/23) Baso %: 0.9 % (05/07/23) Imm Gran: 0.4 % (05/07/23) Abs. Imm Gran: 0 k/mm3 (05/07/23) Sodium: 137 mmol/L (05/07/23) Potassium: 4.7 mmol/L (05/07/23) Chloride: 100 mmol/L (05/07/23) Bicarbonate Level: 23 mmol/L (05/07/23) Glucose Level:??104 mg/dL??High (05/07/23) BUN: 12 mg/dL (05/07/23) Creatinine-Blood: 0.6 mg/dL (05/07/23) Calcium: 9.7 mg/dL (05/07/23) Protein, Total: 7.4 Gm/dL (05/07/23) Albumin: 4.4 Gm/dL (05/07/23) Alkaline Phosphatase: 96 units/L (05/07/23) AST (SGOT): 13 units/L (05/07/23) ALT (SGPT): 7 units/L (05/07/23) Bilirubin, Total: 0.3 mg/dL (05/07/23) Nt-Probnp: 95 pg/mL (05/07/23) Diagnostic Impression ECG ECG 12-Lead ?? 10:11:09 Please click on pdf link to open report ?? Signed By: Afsaneh Desouza MD ?? ECG 12-Lead ?? 10:11:09 Ventricular Rate: 127 BPM Atrial Rate: 127 BPM P-R Interval: 128 ms QRS Duration: 110 ms Q-T Interval: 320 ms QTC Calculation(Bazett): 465 ms P Forney: 81 degrees R Forney: -25 degrees T Forney: 104 degrees Poor data quality, interpretation may be adversely affected Sinus tachycardia Possible Left atrial enlargement Incomplete left bundle branch block ST and T wave abnormality, consider lateral ischemia Abnormal ECG When compared with ECG of 17-FEB-2023 09:05, Rate has increased Confirmed by AFSANEH DESOUZA ([id number]) on 05/13/2023 9:32:44 AM ?? [place]: AFSANEH DESOUZA ?? Signed By: Afsaneh Desouza MD Stress Test NM Myocard Perf SPECT Multi [...] Ivey MD Echo Echocardiogram - Complete ?? 13:43:10 Summary 1. Left ventricular size and wall thickness are normal. The LV systolic function is mildly reduced. The left ventricular ejection fraction is 45%. There is septal dyssynergy consistent with LBBB. 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 Grade II, moderate diastolic dysfunction. 2. The right ventricle is normal in size and function. The pulmonary artery systolic pressure estimation is 35-40 mmHg. 3. Biatrial size is normal. 4. There is no hemodynamically significant valvular disease. ?? Comparison Comparison is made to the study of November 27, 2021. ?? Signature ?? Signed By: Cortez Barnard MD Problem List/Past Medical History Ongoing Abdominal pain, [...] Colpotomy Appendectomy D&C - Dilatation and curettage Social History Alcohol Use: Current. Other: none. Electronic Cigarette/Vaping Electronic Cigarette Use: Never. Employment/School Status: Disabled, Retired. Other: Disabled due to Fibromyalgia 61y/o and now retired.. Exercise Self assessment: Poor condition. Other: Unable to walk much because of fall risk. Home/Environment Living situation: Home/Independent. Lives with: Spouse. Nutrition/Health Diet: Regular. Other: has lots of food allergies. Sexual Sexually involved in last 6 months: Yes. Other sexual concerns: 22 years.. Substance Abuse Use: Never. Tobacco Use: Never (less than 100 in lifetime). Family History Mother: Cancer of ovary; Depression; Osteoporosis Sister: Depression Brother: Depression Patient Care team information Care Team Personnel Name: Yin Hsu Position: [facility] Onco RN Member Role: Primary Care Nurse Name: Ruma Bravo MD Position: [facility] Physician - Primary Care Member Role: PCP Address: Address: [address] [place] [address] [place] [address] Name: Shikha Rivera RN Position: [facility] RN Member Role: Primary Care Nurse Name: Consuelo Louis RN Position: [facility] RN Member Role: Primary Care Nurse Name: Cherry Olsen MD Position: [facility] SIGNING AGENT MD Member Role: Lifetime SIGNING AGENT Physician Address: Address: [address] [place] [address] Women's Health Disk [place] [address] Name: Maeve Jones RN Position: [facility] RN Member Role: Primary Care Nurse Care Team Related Persons Name: MEG MARTIN Address: [address] [address] Name: JAKE RODRIGUES Address: [place] [address]
--- NOTE | 2023-09-19 10:47 | PC.NURSE ---
Pt presents to ED from home, multiple complaints. Pt reports bilat ear ringing over past couple of weeks. Lower leg swelling, worse on right side, redness and swelling noted, pt reports pain in right lower leg (aching and throbbing, 6/10). Has hx of cellulitis in lower legs. Also reports issues with her rectum, having pain and troubles going to bathroom. Pt coming in for eval for all these complaints. Alert and oriented, breathing even and unlabored, skin warm and dry. Denies CP, SOB, fevers, cough.
[2023-09-19 11:11] LABS: Appearance Urine Clear; Color Urine Yellow; Glucose Urine UA Negative (Negative); Leukocyte Esterase Urine Negative (Negative); Nitrite Urine Negative (Negative); PH 6.5 (5.0-9.0); Specific Gravity - Urine <= 1.005 (1.005-1.025); Urine Blood Negative (Negative); Urine Ketones Negative (Negative); Urine Protein Negative (Neg-Trace)
--- NOTE | 2023-09-19 11:37 | ED.GENADULT ---
HPI - General Adult General Chief complaint: General Medical Stated complaint: ringing to the ears and foot pain Time Seen by Provider: 09/19/23 10:24 Source: patient Mode of arrival: ambulatory Limitations: no limitations History of Present Illness ED Provider: Dmitry STEWART HPI narrative: This is a 78-year-old female hx of left bundle-branch block, osteoporosis, fibromyalgia, venous insufficiency, recurrent cellulitis presenting to the emergency department with complaints of ringing in the ears for the past few months, reports this is constant in nature and affecting her equilibrium. Denies visual disturbances, headache, weakness. Patient also reporting that her right ankle has been sore and swollen for years however has been worsening over the past few days. She reports she has been getting recurrent cellulitis to the right lower extremity/right ankle region. She has not on blood thinners. Denies trauma to the area. Reports she is able to move it however reports slight discomfort with movement of right ankle. She denies fevers, chills, chest pain, shortness of breath, nausea, vomiting, abdominal pain, headache, vision changes, weakness. NIH stroke scale 0 Related Data Home Medications ?Medication ?Instructions ?Recorded ?Confirmed calcium carbonate 600 mg-vitamin 1 tab PO DAILY 07/31/21 05/26/23 D3 5 mcg (200 unit) tablet epinephrine 0.3 mg/0.3 mL 0.3 ea IM ONCE PRN Anaphylaxis 12/03/21 05/26/23 injection, auto-injector omeprazole 20 mg tablet,delayed 20 mg PO DAILY 12/03/21 05/26/23 release lisinopril 5 mg tablet 5 mg PO DAILY 05/26/23 05/26/23 Previous Rx's ?Medication ?Instructions ?Recorded linezolid 600 mg tablet 600 mg PO Q12H 10 days #20 tabs 05/03/22 linezolid 600 mg tablet 600 mg PO BID #14 tabs 05/02/23 Allergies Allergy/AdvReac Type Severity Reaction Status Date / Time Iodinated Contrast Media Allergy Severe Rash Verified 09/19/23 08:51 [IV CONTRAST] amoxicillin [AMOXICILLIN] Allergy Intermediate HIVES Verified 09/19/23 08:51 aspirin [ASA] Allergy Intermediate HIVES Verified 09/19/23 08:51 atenolol [ATENOLOL] Allergy Intermediate HIVES Verified 09/19/23 08:51 caffeine [CAFFEINE] Allergy Intermediate HIVES Verified 09/19/23 08:51 cat dander [CATS] Allergy Intermediate HIVES Verified 09/19/23 08:51 cefprozil [From CEFZIL] Allergy Intermediate HIVES Verified 09/19/23 08:51 cephalexin [From KEFLEX] Allergy Intermediate HIVES Verified 09/19/23 08:51 clarithromycin [From BIAXIN] Allergy Intermediate HIVES Verified 09/19/23 08:51 clindamycin [From CLEOCIN] Allergy Intermediate HIVES Verified 09/19/23 08:51 codeine [CODEINE] Allergy Intermediate HIVES Verified 09/19/23 08:51 corn [CORN] Allergy Intermediate HIVES Verified 09/19/23 08:51 diphenhydramine Allergy Intermediate HIVES Verified 09/19/23 08:51 [From BENADRYL] dog dander [DOGS] Allergy Intermediate HIVES Verified 09/19/23 08:51 egg [EGGS] Allergy Intermediate HIVES Verified 09/19/23 08:51 erythromycin base Allergy Intermediate ANAPHYLAXIS Verified 09/19/23 08:51 [From ERYTHROCIN] fentanyl [FENTANYL] Allergy Intermediate HIVES Verified 09/19/23 08:51 ghosh [GHOSH] Allergy Intermediate HIVES Verified 09/19/23 08:51 horse dander [HORSE DANDER] Allergy Intermediate HIVES Verified 09/19/23 08:51 ibuprofen [IBUPROFEN] Allergy Intermediate HIVES Verified 09/19/23 08:51 insect venom [MOSQUITO] Allergy Intermediate HIVES Verified 09/19/23 08:51 latex [LATEX] Allergy Intermediate HIVES Verified 09/19/23 08:51 levofloxacin [From LEVAQUIN] Allergy Intermediate HIVES Verified 09/19/23 08:51 metoprolol [METOPROLOL] Allergy Intermediate HIVES Verified 09/19/23 08:51 mite-Dermatophagoides Allergy Intermediate HIVES Verified 09/19/23 08:51 farinae, florentin [DUST MITES] mold [MOLD] Allergy Intermediate HIVES Verified 09/19/23 08:51 nut - unspecified [NUTS] Allergy Intermediate HIVES Verified 09/19/23 08:51 Penicillins [PCN] Allergy Intermediate Anaphylaxis Verified 09/19/23 08:51 soy [SOY] Allergy Intermediate HIVES Verified 09/19/23 08:51 Sulfa (Sulfonamide Allergy Intermediate HIVES Verified 09/19/23 08:51 Antibiotics) [SULFA (SULFONAMIDE ANTIBIOTICS)] sulfamethoxazole Allergy Intermediate HIVES Verified 09/19/23 08:51 [From BACTRIM] tetracycline [TETRACYCLINE] Allergy Intermediate HIVES Verified 09/19/23 08:51 tree and shrub pollen [TREE] Allergy Intermediate HIVES Verified 09/19/23 08:51 trimethoprim [From BACTRIM] Allergy Intermediate HIVES Verified 09/19/23 08:51 wheat [WHEAT] Allergy Intermediate HIVES Verified 09/19/23 08:51 chicken derived Allergy Mild Unknown Verified 09/19/23 08:51 clavulanic acid [Augmentin] Allergy Unknown Unknown Verified 09/19/23 08:51 mannitol [Reclast] Allergy Unknown Unknown Verified 09/19/23 08:51 zoledronic acid [Reclast] Allergy Unknown Unknown Verified 09/19/23 08:51 linezolid Allergy Hives Verified 09/19/23 08:51 prednisone Allergy Rash Verified 09/19/23 08:51 shellfish derived Allergy Rash Verified 09/19/23 08:51 doxycycline AdvReac Severe Rash Verified 09/19/23 08:51 acetaminophen AdvReac Rash Verified 09/19/23 08:51 banana AdvReac Rash Verified 09/19/23 08:51 DUST Allergy Intermediate HIVES Uncoded 09/19/23 08:51 FRUIT Allergy Intermediate HIVES Uncoded 09/19/23 08:51 MADRIBON Allergy Intermediate HIVES Uncoded 09/19/23 08:51 VEGETABLES,FRESH Allergy Intermediate HIVES Uncoded 09/19/23 08:51 Ivp Dye- Omnipaque AdvReac Unknown rash Uncoded 09/19/23 08:51 Review of Systems Review of Systems: Yes all other systems are reviewed and are negative PMFSH Past Medical History Attestation statement: The following information was validated with the patient. Source: old records reviewed and nursing notes reviewed Medical History Dysphagia Skin cancer of forehead Skin cancer Personal history of COVID-19 Lower extremity edema Hx of sinusitis Osteoporosis Fibromyalgia Left bundle branch block (LBBB) GERD (gastroesophageal reflux disease) Surgical History Hx of right hemicolectomy (01/30/22) Hx of section History of appendectomy Hx of hysterectomy History of esophagogastroduodenoscopy (EGD) Hx of colonoscopy Family History Family History Father Bladder cancer Social History Social History Household Members: Spouse Housing: Apartment Do you presently have visiting nurse or other home services: No Alcohol intake: never Patient Tobacco Use Status: Never used Tobacco Smoked in Last 30 Days: No Use of substances other than those prescribed or required for medical reasons: No Advance Directives: Yes Advance Directives on File: Yes Advance Directives Date on File: 08/05/21 service: No Current occupational status: retired Physical Exam ED Vital Signs: Vital Signs - 24 hr 09/19/23 08:47 09/19/23 10:41 09/19/23 12:33 Temperature 98 F 97.9 F Pulse Rate 100 98 93 Respiratory Rate 19 18 Blood Pressure 143/74 H 162/78 H 156/85 H Pulse Oximetry 100 100 Oxygen Delivery Method Room Air Room Air 09/19/23 12:33 09/19/23 12:33 09/19/23 14:48 Temperature 98.0 F Pulse Rate 99 109 H 88 Respiratory Rate 16 Blood Pressure 162/95 H 158/94 H 134/80 Pulse Oximetry 97 Oxygen Delivery Method Room Air BMI result Body Mass Index 22.2 vss Appearance: Alert.? Oriented X3.? No acute distress.? Head: Normocephalic, atraumatic, no step-offs or deformities Eyes: Pupils equal, round and reactive to light.? ENT: Pharynx normal.? Bilateral ears unremarkable. Neck: Normal inspection.? Neck supple.? CVS: Normal heart rate and rhythm.? Pulses normal.? Respiratory: No respiratory distress.? Breath sounds normal.? Abdomen: Soft and nontender.? Skin: Skin warm and dry.? Normal skin color.? Normal skin turgor.? Extremities: No lower extremity edema.? No calf ttp. 4/5 strength to bilateral upper and lower extremities Back: No midline tenderness, no C-spine tenderness, full range of motion, no CVA tenderness bilaterally Neuro: Oriented X 3.? No motor deficit.? No sensory deficit. CN 2-12 intact . Negative Romberg and pronator drift. Normal [id number], [id number]. Course Reevaluation(s) Reevaluation #1: CBC with no acute findings requiring intervention. Chemistry with no acute electrolyte abnormalities needing intervention. UA without infection. X-ray of right ankle osteopenia no acute visible fracture dislocation. Soft tissue prominence about the ankle. I do not suspect acute osteomyelitis on this patient. CT of the head no acute intracranial pathology. Chronic white matter small-vessel ischemic changes. Mucoperiosteal thickening of the left sphenoid sinus. Ultrasound of right lower extremity still pending. Patient has a long list of allergies to antibiotics she has taken linezolid in the past w/ good success for celluliits. after US results likely dc home. Time: 13:44 Reevaluation #2: Ultrasound unremarkable no DVT. Palpable pulses no arterial occlusion. Bilateral ears unremarkable. No pain with manipulation of external ear. Normal tympanic membrane bilaterally. No mastoid tenderness. No nystagmus. Tinnitus from unknown source. Will have her follow-up with ENT. This is not acute in onset, this has been going on for the past few weeks. Will have her follow-up outpatient. Educated patient on diagnosis and treatment plan, answered all question, patient verbalizes understanding. When I went to review home antibiotics with patient she tells me that as of recently she became allergic to linezolid. Discussed w/ my attending who recommends admission with ID consult. Time: 15:22 Reevaluation #3: Spoke with ID due to dias allergic patient will be admitted for IV [facility] Hospitalist aware. Time: 15:53 Medications Administered Discontinued Medications Generic Name Dose Route Start Last Admin Trade Name Freq PRN Reason Stop Dose Admin Sodium Chloride 500 mls @ 500 mls/hr 09/19/23 12:15 09/19/23 13:47 Ns IV 09/19/23 13:14 Infused .Q1H CRISTIN Infusion Medical Decision Making Medical Decision Making [facility] Narrative: 1201 78-year-old female presents with ringing in the ears for the past few weeks as well as right ankle pain and swelling for the past few weeks atraumatic in nature. History of recurrent cellulitis. No recent trauma to head, neck, chest, abdomen or pelvis. Physical exam benign. NIH stroke scale 0. History and physical exam concerning for possible vertigo versus been years versus tinnitus. Unlikely intracranial hemorrhage, stroke, posterior stroke, aneurysm rupture. Right ankle pain and swelling concerning for gout with possible overlying cellulitis. Unlikely septic joint, neurovascular compromise, acute threat to limb. Will rule out DVT. I do not suspect fracture dislocation. Will rule out UTI and electrolyte abnormalities Plan labs, imaging, orthostatic vital signs, urine. Differential Diagnosis Differential Diagnoses: The differential diagnosis associated with the presentation includes History and physical exam concerning for possible vertigo versus been years versus tinnitus. Unlikely intracranial hemorrhage, stroke, posterior stroke, aneurysm rupture. Right ankle pain and swelling concerning for gout with possible overlying cellulitis. Unlikely septic joint, neurovascular compromise, acute threat to limb. Will rule out DVT. I do not suspect fracture dislocation. Will rule out UTI and electrolyte abnormalities Admission/Observation Consideration of admission/observation: Escalation of care including admission/observation considered possible Lab Data MDM Lab Attestation statement: I reviewed the patient's lab results. 09/19/23 08:58 09/19/23 08:58 Labs: Lab Results 09/19/23 09/19/23 Range/Units 08:58 11:06 WBC 8.0 (4.8-10.8) X10*3/uL RBC 5.65 H (4.20-5.50) X10*6/uL Hgb 14.7 (12.0-16.0) g/dl Hct 44.3 (37.0-47.0) % MCV 78.4 L (80.0-98.0) fL MCH 26.0 L (27.0-33.0) pg MCHC 33.2 (31.0-35.0) g/dl RDW 16.6 H (11.0-16.0) % Plt Count 264 D (160-400) X10*3/uL MPV 10.3 (9.4-12.3) fL Immature Gran % (Auto) 0.3 (0.0-0.4) % Neut % (Auto) 66.1 (45-73) % Lymph % (Auto) 23.7 (20-40) % [place] % (Auto) 7.5 (2-11) % Eos % (Auto) 1.6 (0-4) % Baso % (Auto) 0.8 (0-2) % Lymph # (Auto) 1.9 (1.2-4.9) X10*3/uL [place] # (Auto) 0.6 (0.1-1.2) X10*3/uL Eos # (Auto) 0.1 (0.0-0.4) X10*3/uL Baso # (Auto) 0.1 (0.0-0.2) X10*3/uL Abs Immat Gran (auto) 0.02 (0.00-0.03) X10*3/uL Absolute Neuts (auto) 5.3 (2.0-8.3) x10*3/uL Absolute Nucleated RBC 0.000 (0.0-0.012) X10*3/uL Nucleated RBC % (auto) 0.0 (0.0-0.2) /100WBC Sodium 138 (135-145) mmol/L Potassium 4.3 (3.3-5.1) mmol/L Chloride 104 (96-108) mmol/L Carbon Dioxide 24 (22-29) mmol/L Anion Gap 14 (12-20) BUN 14 (9-16) mg/dL Creatinine 0.75 (0.5-1.4) mg/dL Estim Creat Clear Calc 43.5 Estimated GFR > 60 Random Glucose 97 (60-115) mg/dL Calcium 9.4 (8.4-10.2) mg/dL Urine Color Yellow Urine Appearance Clear Urine pH 6.5 (5.0-9.0) Ur Specific [place] <= 1.005 (1.005-1.025) Urine Protein Negative (Neg-Trace) mg/dL Urine Glucose (UA) Negative (Negative) mg/dL Urine Ketones Negative (Negative) mg/dL Urine Blood Negative (Negative) Urine Nitrite Negative (Negative) Ur Leukocyte Esterase Negative (Negative) Independent Interpretation I performed an independent interpretation of an: Plain X-Ray and CT Scan Radiology Impression Discussion of test interpretation with radiology: I have reviewed the radiologist's reading. External Record Review External record reviewed: Inpatient record, Office record, Outpatient record, Prior outpatient labs, Prior outpatient radiology, Primary care record and Outside ED record Chronic Conditions Patient?s care impacted by: Other (Cellulitis, left bundle-branch block, osteoporosis, fibromyalgia, venous insufficiency, recurrent cellulitis,) Critical Care Time Critical Care Time Critical Care Time: Yes Total Critical Care Time: 35 Attestation: I attest to this time spent taking care of the patient, obtaining history, physical, reviewing labs, imaging, speaking to my attending, specialist or hospitalist. Discharge Plan Discharge Clinical Impression: Ankle pain, right, Cellulitis, Ankle swelling, Tinnitus Patient Disposition: Admitted As Inpatient Instructions: Cellulitis (ED), Swollen Joint (ED), Tinnitus (ED), Swollen Ankle Joint (ED) Additional Instructions: Take your medications as prescribed. If you were prescribed antibiotics today, it is important that you take your medication to their entirety, do not skip any doses, do not finish them early. Follow-up with your primary care provider this week. Return to the emergency department with new or worsening symptoms. Such as fevers, chills, chest pain, shortness of breath, nausea, vomiting, dizziness, headache, vision changes, lethargy In case of emergency call 911 Follow-up with ears Nose and Throat. Information below. Take antibiotics as prescribed. CT/CT head/brain wo IV con IMPRESSION: 1. No acute intracranial pathology. 2. Chronic white matter small vessel ischemic changes. 3. Mucoperiosteal thickening of the left sphenoid sinus. XR/XR ankle RT min 3V IMPRESSION: 1. Osteopenia. 2. No acute visible fracture or dislocation. 3. Soft tissue prominence about the ankle. US/US venous duplex LE RT IMPRESSION: No DVT demonstrated in the right lower extremity. Prescriptions: No Action linezolid 600 mg tablet 600 mg PO Q12H 10 Days Qty: 20 0RF calcium carbonate-vitamin D3 600 mg-5 mcg (200 unit) Tablet 1 tab PO DAILY epinephrine 0.3 mg/0.3 mL auto-injector 0.3 ea IM ONCE PRN (Reason: Anaphylaxis) omeprazole 20 mg Tablet,Delayed Release (Dr/Ec) 20 mg PO DAILY linezolid 600 mg tablet 600 mg PO BID Qty: 14 0RF lisinopril 5 mg tablet 5 mg PO DAILY Referrals: Ruma Bravo MD [Primary Care Provider] - 3 days Maurice Nava [Physician] - 2 days Stand Alone Forms: Work/School Release Print Language: Italian
--- NOTE | 2023-09-19 12:03 | ECG_ITS ---
Test Reason : weakness Blood Pressure : / mmHG Vent. Rate : 086 BPM Atrial Rate : 086 BPM P-R Int : 130 ms QRS Dur : 118 ms QT Int : 388 ms P-R-T Axes : 060 -36 100 degrees QTc Int : 464 ms Normal sinus rhythm Left axis deviation Left bundle branch block Abnormal ECG When compared with ECG of 16-SEP-2018 11:17, No significant changes seen Referred By: Sondra Lino Electronically Signed By:SARA COLE MD
[2023-09-19 12:33] VITALS: BP 156/85; BP 158/94; BP 162/95; PULSE 109; PULSE 93; PULSE 99
[2023-09-19] MEDS: 0.9 % Sodium Chloride 500 ML IV (12:49)
[2023-09-19 14:48] VITALS: BP 134/80; PULSE 88; RESP 16; TEMP 36.7; O2SAT 97
--- NOTE | 2023-09-19 15:42 | PC.NURSE ---
Went into discharge the patient, patient states she is allergic to perscribed abx, provider already aware, has to speak to infectious disease regarding what abx the patient can tolerate, informed patient she will be remaining in the ED until they can determine appropiate abx. Patient verbalized understanding.
[2023-09-19] MEDS: vancomycin HCL 1,250 MG in 0.9 % Sodium Chloride 250 ML 166.67 MG IV (16:07)
--- NOTE | 2023-09-19 16:43 | PHA.MEDREC ---
Pharmacy Consult ? Medication Reconciliation Pharmacy has completed the medication reconciliation.
[2023-09-19 16:50] VITALS: BP 153/82; PULSE 102; RESP 16; TEMP 36.6; O2SAT 98
--- NOTE | 2023-09-19 16:54 | P.EN_ITS ---
Event Note Date of Service: 09/19/23 Event Note: Seen and examined for possible cellulitis of right lower extremity Patient reports intermittent right ankle swelling over the past several years since he was initially diagnosed with cellulitis in 2021. She denies any fever, chills. On exam there is no significant erythema or warmth; there is localized swelling to right ankle. She is afebrile, labwork within normal limits with no white count or left shift. US negative for DVT, xray with no fracture or disloc ation. Do not feel that this represents cellulitis. Would recommend rui wrap for compression and elevation of the right extremity and anti-inflammatories if the patient is able to tolerate. There does not appear to be any indication for hospitalization at this time. Time Spent With Patient Time: Total time managing care of this patient today ____ minutes.
--- NOTE | 2023-09-19 18:04 | PC.NURSE ---
Went into room to discharge patient, patient stated her face felt funny , complaining of redness on her face and neck, patient's top of head and back of neck noted to be red. Reassured patient that redness is a normal reaction for vanco. Patient requested to speak with a provider, reached out to admitting provider kavita, whom also communicated that redness is a normal reaction to vanco. Patient moved into hallway to provider better observation. Infusion rate slowed. Patient continues to tolerate infusion.
--- NOTE | 2023-09-19 18:41 | PC.NURSE ---
Patient continues to remain in the ED, abx finishing, patient with multiple trips to the BR. Redness on head/neck significantly reduced.
[2023-09-19 19:31] VITALS: BP 160/82; PULSE 97; RESP 16; TEMP 37.1; O2SAT 98
== END 2023-09-19 19:57 | disposition home or self-care (01) ==
PROVIDERS: Physician Assistant; Emergency Provider Emergency Medicine; PCP Pediatrics
DX: H93.19 Tinnitus, unspecified ear (principal); M25.571 Pain in right ankle and joints of right foot; L03.90 Cellulitis, unspecified; M25.471 Effusion, right ankle; I44.7 Left bundle-branch block, unspecified; I87.2 Venous insufficiency (chronic) (peripheral)
CPT/HCPCS: 36415; 70450; 73610; 80048; 81003; 85025; 93005; 93971; 96361; 96365; 96366; 99285; J3371

== ENCOUNTER → 2023-09-19 12:03 | Outpatient (BNV) | payer MEDICARE, SELFPAY | PROVIDERS: Emergency Provider Emergency Medicine; PCP Pediatrics; Visit Provider Internal Medicine Cardiovascular Disease | DX: R53.1 Weakness (principal) | CPT/HCPCS: 93010 ==

== ENCOUNTER 2024-06-07 08:53 | Outpatient (REF) | payer MEDICARE, SELFPAY ==
--- OUTSIDE RECORDS SUMMARY | 2024-06-07 10:18 | XMS_ITS | Clinical Summary ---
Author Organization [facility] Address [address] [place] [phone] Phone Care Team Providers Care Ed Special Education Teacher Name Role Phone Ruma Bravo MD Primary Care Provider Allergies Active Allergy Reactions Criticality Noted Date Comments Adhesive 07/25/2021 Amoxicillin Hives 09/12/2021 Amoxicillin-Pot Clavulanate 07/26/19 Aspirin 07/25/2021 Atenolol 07/25/2021 Cefprozil 07/25/2021 Cephalexin 09/12/2021 Chicken Derived 09/12/2021 Clarithromycin Hives 09/12/2021 Clindamycin 07/25/2021 Clindamycin Phosphate 09/12/2021 Codeine 07/25/2021 Oketo 09/12/2021 Cyclobenzaprine 07/25/2021 Doxycycline 07/25/2021 Egg 09/12/2021 [...] Active Problems Problem Noted Date Diagnosed Date Emjias's esophagus without dysplasia 05/21/2024 Diverticulosis 04/07/2024 GERD [...] 2:10 PM EST Office Visit Gastroenterology - [place] [address] [facility] [address] [place] [phone] Toñito Pride MD Generalized abdominal pain (Primary Dx); Gastroesophageal reflux disease with esophagitis, unspecified whether hemorrhage; Mejias's esophagus without dysplasia; History of right hemicolectomy; Abdominal wall pain; Tubulovillous adenoma 04/06/2024 8:45 AM EST - 04/06/2024 11:59 PM EST Hospital Encounter [facility] Ultrasound [address] [place] [address] Abdominal pain Discharge Disposition: Home or Self Care from Last 3 Months Surgical History Surgery Date Site/Laterality Comments APPENDECTOMY PROCEDURE: VT APPENDECTOMY OTHER SURGICAL HISTORY PROCEDURE: VT TOTAL ABDOMINAL HYSTERECT W/WO RMVL TUBE OVARY TONSILLECTOMY PROCEDURE: VT TONSILLECTOMY PRIMARY/SECONDARY <AGE 14 COLONOSCOPY PROCEDURE: HISTORICAL COLONOSCOPY; COMMENT: last in 2013 Jaylyn Bradford OTHER SURGICAL HISTORY PROCEDURE: HISTORY OTHER; COMMENT: skin cancer removed from forehead COLONOSCOPY 08/05/2021 PROCEDURE: HISTORICAL COLONOSCOPY; COMMENT: hot snare polypectomy, large cecal mass- ESOPHAGOGASTRODUODENOSCOPY 08/05/2021 PROCEDURE: VT ESOPHAGOGASTRODUODENOSCOPY TRANSORAL DIAGNOSTIC; COMMENT: esophagitis, hiatal hernia [...] Signed Date: 04/06/2024 10:35 ET Workstation ID: [id number] Transcribed By: Self Edit Transcribed Date: 04/06/2024 [...] Signed Date: 04/06/2024 10:35 ET Workstation ID: [id number] Transcribed By: Self Edit Transcribed Date: 04/06/2024 10:30 ET Toñito Pride MD [facility] [place]ED[place] * Colonoscopy (08/05/2021) Colonoscopy Abstracted, no interpretation Anatomical Region Laterality Modality Other Historical Provider MD CHEPE Gaines from Last 3 Months or Most Recently Relevant to Health Maintenance Advance Directives Documents on File Type Date Recorded Patient Agent Licensing Clerk Expl anation Health Care Decision (hx) 02/03/2022 AD NGUYỄN DIRECTIVE Health Care Decision (hx) 02/03/2022 AD NGUYỄN DIRECTIVE Health Care Decision (hx) 02/03/2022 AD NGUYỄN DIRECTIVE Health Care Decision (hx) 02/03/2022 AD NGUYỄN DIRECTIVE Health Care Decision (hx) 02/03/2022 AD NGUYỄN DIRECTIVE Care Teams Ed Special Education Teacher Relationship Specialty Start Date End Date Ruma Bravo MD [address] [address] PCP - General Internal Medicine 05/21/24
--- OUTSIDE RECORDS SUMMARY | 2024-06-07 10:18 | XMS_ITS | Encounter Summary ---
Author Organization [facility] Address [address] [place] [address] Care Team Providers Care Master Sheet Clerk Name Role Phone Ruma Bravo BULLET SLUG CASTING MACHINE OPERATOR Primary Care Provider Reason for Visit * Reason Comments Follow-up imaging Encounter Details Date Type Department Care Team ([facility] Contact Info) Description 05/20/2024 2:10 PM EST Office Visit Gastroenterology - [place] [facility] [address] [facility] [address] [place] [phone] Toñito Pride MD [address] [facility] [address] [place] [address] Generalized abdominal pain (Primary Dx); Gastroesophageal reflux [...] could not be removed by a community logistics system engineer in [facility] in 2021. The patient was subsequently [...] Derived Clarithromycin Hives Clindamycin Clindamycin Phosphate Codeine [place] Cyclobenzaprine Doxycycline Egg Erythromycin Fentanyl Ibuprofen Iodinated [...] Signed Date: 04/06/2024 10:35 ET Workstation ID: [id number] Transcribed By: Self Edit Transcribed Date: 04/06/2024 [...] and Internal Medicine Gastroenterology and Hepatology Practice [facility] [email or web address] [phone] [place] [address] [email or web address] cc: Ruma Bravo *, Ruma Bravo MD [...] after. added in this encounter Care Teams Master Sheet Clerk Relationship Specialty Start Date End Date Ruma Bravo LCSW [address] [address] PCP - General 04/06/24 05/20/24 documented as of this encounter
--- OUTSIDE RECORDS SUMMARY | 2024-06-07 10:19 | XMS_ITS | Data Portability ---
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 Patient reports that she was diagnosed with bilateral sciatica; she denied any trauma, numbness, tingling or weakness of the extremities, changes in bowel or bladder function. Comorbidities: HTN, fibromyalgia, osteoporosis Exam: elderly female, well appearing, no acute distress, non-toxic appearance; alert and oriented X3; ambulates independently without difficulty Motor function is normal with muscle strength 5/5 bilaterally to upper and lower extremities. Sensation is intact bilaterally. Reflexes 2+ bilaterally. Cranial nerves 2-12 are intact. No focal neuro deficits, normal [id number], no pronator drift, no gait abnormalities are appreciated. Heart sounds are regular rate and rhythm; no audible murmurs, rubs, or gallops No signs of respiratory distress. Lungs are clear to auscultation in all fileds Abdomen is soft, non tender, non distended. Bowel sounds are normoactive and present in all quadrants, no CVA or suprapubic tenderness Good range of motion of all major joints. No external signs of trauma. No edema, erythema or cyanosis of lower extremities Neck and back are without deformity, external skin changes, or signs of trauma. Posture is upright, gait is smooth, steady, and within normal limits. Patient reported tenderness on palpation of the spinous processes and paraspinal muscles. Limited range of motion due to pain including flexion, extension, and [id number] rotation of the lumbar spine noted. Straight leg raise test is negative bilaterally. Sensation to the upper and lower extremities is normal bilaterally. No clonus is noted. DDx considered, but not limited to: Sciatica flare - most likely dx based on presenting symptoms and prior history Muscle strain - patient denies any injury Compound fructure - will order xray to r/o UTI/pyonephritis - unlikely, no urinary symptoms, no CVA or suprapubic tenderness Spinal stenosis/herniat ed disk - needs further eval AAA - unlikely Work up/Results: lumbar spine xray Plan/Discussion: - based on clinical presentation sciatica flare is the most likely dx at this time; due to multiple drug allergies will start prednisone burst X5d - ordered lumbar spine xray - advised rest, gentle stretching and heat 20min on/off - follow up with PCP as needed within 3-5 days or sooner if symptoms worsen or do not improve - advised when to seek immediate medical attention/911/ED - patient expressed understanding and agreed to tx plan off note: in unrelated conversation patient mentioned multiple tests done for various complains; she was tested for COVID 3 times within the last 2 months; today she requested throat cultures, however, has no symptoms, she stated that she just wants to check because she had strep throat earlier this year. In order to obtain further information and compare any laboratory results/values, I have accessed patient records on the [employer]. This information was pertinent in my medical decision making today. Personal Protective Equipment (PPE), including gloves, eye protection and masks were donned and doffed appropriately and all equipment cleaned using approved technique with germicidal disposable wipes prior to and after care of this patient according to [facility] infection prevention protocols. Time On Scene with Patient: 00:34:57 [email or web address] Not available 10/11/2019 10:46:23 10/14/2020 10/14/2020 Time On Scene with Patient: 01:08:59 [email or web address] Not available 10/14/2020 14:30:16 Plan of Treatment Reminders Order Date Submit Date Provider Last Modified By Organization Details Last Modified Time Details Appointments None recorded. Lab None recorded. Referral None recorded. Procedures None recorded. Surgeries None recorded. Imaging XR, lumbosacral spine, 2 or 3 view 2019 020 [facility], [address] [place], [address], 0 11:48:51 Medication Orders prednisone 20 mg tablet 2019 020 [email or web address] [id number], [address], [place], [id number], 1 13:34:05 Patient TargetsNo targets recorded. Patient Instructions Encounter Date Encounter Id Patient Instructions Last Modified By Organization Details Last Modified Time 10/11/2019 [id number] Back Pain - Discharge Instructions Basic Information: Back pain is a common problem, and has many different causes. Most back pain will improve within 2 weeks of onset. Common causes include lifting, twisting movements, overuse, unusual movements, stress, prolonged sitting, poor posture, being overweight and less commonly structural issues such as disc problems(sciatica) or fractures. X-rays and MRI? s are rarely indicated unless there has been significant trauma, if you are having certain abnormal neurologic abnormalities, or if you have certain underlying medical conditions that can cause spinal problems. Instructions: Avoid heavy lifting, bending ,twisting or prolonged sitting. Be as active as you can comfortably be, walking often makes back pain feel better. Be sure to change position at least every 2 hours to avoid stiffening up. BED REST IS NOT RECOMMENDED FOR BACK PAIN AND WILL MAKE YOU FEEL WORSE! Ice for 15 minutes every 2 hours and after 48 hours you may alternate with moist heat for 15 minutes. DO NOT FALL ASLEEP ON THE HEATING PAD, this will cause the area to swell and hurt more! When getting out of bed, roll to your side, and dangle your legs over the edge of the bed while pushing up with your hand and elbow to a seated position. Place a pillow between your knees while lying on your side, and under your legs when lying on your back to remove stress from the spine. Practice good posture as much as you are able, shoulders back, head up, abdomen pulled in. Gentle stretching, lie on your back and gently hug your knees. When you are feeling better there are many exercises that can help you treat and prevent low back pain, check with your Provider. If you are having pain/numbness going down your legs the Joaquin exercises are designed to relieve this pain, you can find demonstrations on [email or web address] Weight loss will help to relieve stress on your back. Smoking can make back pain worse, try to limit or quit smoking, check with your provider about methods to help stop smoking. Medications: Based on your history and examination your provider will design a medication regimen specifically for your condition, this may include some of the following medications. Acetaminophen/Tyle nol: if you do not have any liver issues. Non-steroidal anti inflammatories/NSA IDS: These category includes ibuprofen (Motrin. Advil) and Naproxen (Aleve/Naprsoyn) and other medications. Anti-inflammatorie s are powerful pain relievers and the first line treatment for back pain. NSAID? s should be taken with food. People with kidney disease, hypertension or on blood thinners should not take these medications. Other medications may be prescribed, if they contain muscle relaxants or narcotic pain relievers DO NOT DRINK ALCOHOL, DRIVE OR OPERATE HEAVY MACHINERY WHILE TAKING THESE MEDICATIONS! Follow Up: You will need to follow up with your PCP for reevaluation within a few days If your back pain persists for more than 2 months or your condition deteriorates you may require further evaluation and testing. If you experience worsening and persistent numbness/weakness/ tingling, have numbness of your genitals, inability to urinate or losing urine, severe pain, fever more than 101.5, or are worse go to the ER for further evaluation. If you have additional concerns or develop a change in your condition between 8am-10pm, please call [facility] at [phone] to help navigate your care. [email or web address] Not available 10/11/2019 09:31:53 10/14/2020 [id number] You were seen today for a healing cellulitis of the left thumb. Your cellulitis has definitely improved. Please continue with your previously prescribed antibiotic per Dr. pack. You requested a newly fashioned splint to support the area for healling. A 1/2 cast splint was designed for your left thumb area to support. Thank you for your visit with [facility] today. We cannot always find the exact cause of your symptoms during your initial visit. Please follow up with your primary care provider or specialist as needed to be rechecked or seek medical attention if your symptoms do not go away or get worse. If you develop any new or worsening symptoms and need after hours care, please go to nearest ER and/or call 911. If you have additional concerns or develop a change in your condition between 8am-10pm, please call [facility] at [phone] to help navigate your care. [email or web address] Not available 10/14/2020 14:05:11 Reason for Referral None Reported. Results Created Date Observation Date Name Description Value Unit Range Abnormal Flag Note LastModifiedBy Organization Detail LastModifiedTime 10/12/19 20 10/12/2019 XR, lumbo sacra l spine , 2 or 3 view No observ ation record ed. [address] [facility] [address] [place], [address], 10/14/2019 08:35:29 Result Notes None recorded. Procedures Surgical History Date Name Laterality Status Provider Name and Address Organization Details Recorded Time Total Hysterectomy completed Pallavi Palomares NP [address] [place], [address], [place] [facility] 10/14/2020 13:33:03 Appendectomy completed Pallavi Palomares NP [address], [place], [address], [place] [facility] 10/14/2020 13:33:08 section completed Pallavi Palomares NP [address], [place], [address], [place] [facility] 10/14/2020 13:33:25 Imaging Results Imaging Date Name Status LastModified by Organiz ation Details LastModified Time 10/12/2019 XR, lumbosacral spine, 2 or 3 view completed [address] [facility] [address] [place], [address], 10/14/2019 08:35:29 Procedure Notes None recorded. Medical Equipment None Reported. Allergies Allergen ID Allergen Name Allergen Category Reaction Reaction Severity Criticality Documentation Date Start Date Code Code System Note Provider Name and Address Organization Details Recorded Time 476810 Augmentin medicatio n Not available Not available Not available 10/11/2019 77722 2 RxNorm HOLLY OCHOA [address] [place], [address], [place] [facility] 0 09:04:05 [id number] Keflex medicatio n Not available Not available Not available 10/11/201977094 7 RxNorm CELIA ALAN, PA [address], [place], [place], [address], [place] [facility] 0 09:06:45 [id number] Lyrica medicatio n Not available Not available Not available 10/11/2019 14194 1 RxNorm CELIA ALAN, PA [address], [place], [place], [address], [place] [facility] 0 09:06:58 [id number] Product containin g penicilli n and antibioti c (product) medicatio n Not available Not available Not available 10/11/2019 16237 05 SNOMED CELIA ALAN, PA [address], [place], [place], [address], [place] [facility] 0 09:07:09 [id number] cyclobenz aprine medicatio n Not available Not available Not available 10/11/2019 20410 RxNorm CELIA ALAN, PA [address], [place], [place], [address], [place] [facility] 0 09:07:35 [id number] fentanyl medicatio n Not available Not available Not available 10/11/2019 4337 RxNorm CELIA ALAN, PA [address], [place], [place], [address], [place] [facility] 0 09:07:47 [id number] Levaquin medicatio n Not available Not available Not available 10/11/2019 21408 2 RxNorm CELIA ALAN, PA [address], [place], [place], [address], [place] [facility] 0 09:09:17 [id number] Tylenol medicatio n Not available Not available Not available 10/11/201943035 3 RxNorm CELIA ALAN, PA [address], [place], [address], [place] [facility] 0 09:10:18 196476 aspirin medicatio n Not available Not available Not available 10/11/2019 1191 RxNorm CELIA ALAN, PA [address], [place], [address], [place] [facility] 0 09:10:31 [id number] Cleocin medicatio n Not available Not available Not available 10/11/201969199 2 RxNorm CELIA ALAN, PA [address], [place], [address], [place] [facility] 0 09:39:56 [id number] Cefzil medicatio n Not available Not available Not available 10/11/201967099 1 RxNorm CELIA ALAN, PA [address], [place], [address], [place] [facility] 0 09:40:16 [id number] Biaxin medicatio n Not available Not available Not available 10/11/2019 44023 9 RxNorm CELIA ALAN, PA [address], [place], [address], [place] [facility] 0 09:40:24 [id number] Bactrim medicatio n Not available Not available Not available 10/11/2019 21995 9 RxNorm CELIA ALAN, PA [address], [place], [address], [place] [facility] 0 09:40:32 [id number] atenolol medicatio n Not available Not available Not available 10/11/2019 1202 RxNorm CELIA ALAN, PA [address], [place], [address], [place] [facility] 0 09:41:04 [id number] codeine medicatio n Not available Not available Not available 10/11/2019 2670 RxNorm CELIA ALAN, PA [address], [place], [address], [place] [facility] 0 09:41:11 [id number] ibuprofen medicatio n Not available Not available Not available 10/11/2019 5640 RxNorm CELIA ALAN, PA [address], [place], [address], [place] [facility] 0 09:41:42 [id number] lidocaine medicatio n Not available Not available Not available 10/11/2019 6387 RxNorm CELIA ALAN, PA [address], [place], [address], [place] [facility] 0 09:42:03 [id number] Tums medicatio n Not available Not available Not available 10/11/2019 87965 8 RxNorm CELIA ALAN, PA [address], [place], [address], [place] [facility] 0 09:42:15 [id number] doxycycli ne Not available Not available Not available Not available 10/14/2020 3640 RxNorm Pallavi Palomares, COMPUTERIZED TABLE CUTTER [address], [place], [address], [place] [facility] 1 13:25:31 [id number] clindamyc in Not available Not available Not available Not available 10/14/2020 2582 RxNorm Pallavi Palomares, FINA [address], [place], [address], [place] [facility] 1 13:26:06 [id number] adhesive tape environme nt,medica tion Not available Not available Not available 10/14/2020 38384 UNK Pallavi Palomares, COMPUTERIZED TABLE CUTTER [address], [place], [address], [place] [facility] 1 13:26:51 182030 latex environme nt,medica tion Not available Not available Not available 10/14/2020 55840 91 RxNorm Pallavi Benson Palomares, COMPUTERIZED TABLE CUTTER [address], [facility] [facility] [place], [address], [place] [facility] 13:27:00 [id number] mold extract environme nt Not available Not available Not available 10/14/2020 53020 8 RxNorm Pallavi Kelley Palomares, COMPUTERIZED TABLE CUTTER [address], [facility] [place], [address], [place] [facility] 13:28:29 194927 shellfish derived food,medi cation Not available Not available Not available 10/14/2020 18840 UNK Pallavi Benson Jelani, COMPUTERIZED TABLE CUTTER [address], [facility] [place], [address], [place] [facility] 13:29:02 Medications Name Sig Start Date Stop Date Status Note LastModified by Organization Details LastModified Time miracle mouthwash 10/14 completed Not Available Not Available Not Available compound drug 10/14 completed Not Available Not Available Not Available doxycycline hyclate 100 mg capsule TAKE ONE CAPSULE BY MOUTH TWICE DAILY 10/14 completed Not Available Not Available Not Available clindamycin HCl 300 mg capsule 10/10 completed Not Available Not Available Not Available azithromyci n 250 mg tablet 10/10 completed Not Available Not Available Not Available prednisone 20 mg tablet Take 2 tablets every day by oral route for 5 days. 10/14 completed Not Available Not Available Not Available peg-electro lyte solution 420 gram oral solution 10/10 completed Not Available Not Available Not Available tramadol 50 mg tablet TAKE 1 TABLET BY MOUTH EVERY 4-6 HOURS FOR PAIN 10/14 completed Not Available Not Available Not Available linezolid 600 mg tablet TAKE 1 TABLET BY MOUTH TWO TIMES A DAY FOR 5 DAYS active Not Available Not Available No t Available levetiracet am 250 mg tablet 10/10 completed Not Available Not Available Not Available neomycin-po lymyxin-dex ameth 3.5 mg/mL-10,00 0 unit/mL-0.1 % eye drops INSTILL 1 DROP IN LEFT EYE TID FOR 1 WEEK THEN STOP 10/14 completed Not Available Not Available Not Available tobramycin 0.3 % eye drops INSTILL 1 DROP OS TID FOR 1 WEEK THEN QD FOR 1 WEEK active Not Available Not Available No t Available gabapentin 100 mg capsule TAKE 1 CAPSULE BY MOUTH EVERY NIGHT AT BEDTIME 10/14 completed Not Available Not Available Not Available epinephrine 0.3 mg/0.3 mL injection, auto-inject or USE DIRECTED FOR ANAPHYLAX IS THEN CALL 911 active Not Available Not Available No t Available oxycodone 5 mg tablet TK 1 T PO Q 6 H PRN 10/14 completed Not Available Not Available Not Available chlorhexidi ne gluconate 0.12 % mouthwash RINSE 15 ML BID BID FOR 2 MINUTES THEN SPIT FOR 10 DAYS 10/14 completed Not Available Not Available Not Available GaviLyte-G 236 gram-22.74 gram-6.74 gram-5.86 gram oral solution 10/10 completed Not Available Not Available Not Available Suprep Bowel Prep Kit 17.5 gram-3.13 gram-1.6 gram oral solution 10/10 completed Not Available Not Available Not Available Vitals Date Recorded Respiratory rate Heart rate Oxygen saturation Oxygen saturation in Arterial blood by Pulse oximetry Body temperature Systolic blood pressure Diastolic blood pressure Provider Name and Address Organization Details Last Updated DateTime 0 20 /min 93 /min 98 % 98 % 99.1 [degF] 126 mm[Hg] 74 mm[Hg] Not Available [facility] 0 09:08:59 Date Recorded Body temperature Respiratory rate Oxygen saturation Oxygen saturation in Arterial blood by Pulse oximetry Heart rate Systolic blood pressure Diastolic blood pressure Provider Name and Address Organization Details Last Updated DateTime 1 98.2 [degF] 18 /min 99 % 99 % 98 /min 124 mm[Hg] 64 mm[Hg] Not Available [facility] 1 13:30:43 Social History Question Answer Notes LastModified by Organizat ion Details LastModified Time Tobacco Smoking Status Never Smoker HOLLY OCHOA [address], [place], [address], [place] [facility] 10/11/2019 09:43:07 Do You Have An Advance Directive? No Information not available 10/11/2019 What Is Your Code Status? Full Code Information not available 10/11/2019 Within The Past 12 Months, Has It Happened That The Food You Bought Just Didn't Last And You Didn't Have Money To Get More. No Information not available 10/11/2019 Within The Past 12 Months, Have You Worried That Your Food Would Run Out Before You Got Money To Buy More. No Information not available 10/11/2019 Fall Risk: Do You Feel Unsteady When Standing Or Walking? No Information not available 10/11/2019 We Know That How And When People Interact With Friends And Family Can Be Very Different From Person To Person. How Often Do You Have The Opportunity To See Or Talk To People That You Care About And Feel Close To? (Ex: Talking To Friends On The Phone Or Visiting Friends Or Family Or Going To [employer] Or Club Meetings) 3 Or 4 Times Per Week Information not available 10/11/2019 Excessive Alcohol Or Drug Use No Information not available 10/11/2019 We Know From Many Of Our Patients That Covering All Of Their Costs Can Be Difficult At Times. This Can Cause Stress And Impact Health. In The Past Year, Have You Been Unable To Get Any Of The Following When It Was Really Needed? No Information not available 10/11/2019 What Is Your Housing Situation Today? I Have Housing Information not available 10/11/2019 Would You Like Help Connecting To Resources? None Information not available 10/11/2019 Sex: Unknown Functional Status None recorded. Mental Status None recorded. Family History Relationship Description Onset Age of this Age Resolved Age Notes LastModified by Organization Details LastModified Time Father No current problems or disability [email or web address] Not available 10/14 13:32:38 Mother No current problems or disability [email or web address] Not available 10/14 13:32:38 Notes:patient can't recall Medical History Condition Response Coronary Artery Disease N COPD N Depression N Diabetes N Cancer N Stroke N Asthma N High Cholesterol N Pulmonary Embolism N Hypertension Y Kidney Disease N Gynecological HistoryNo gynecological history recorded. Obstetrics History GPAL:G 0 P 0 0 0 0 Past Encounters Encounter ID Performer Location Encounter Start Date Encounter Closed Date Diagnosis/Indication Diagnosis SNOMED-CT Code Diagnosis ICD10 Code Diagnosis Note [id number] HOLLY OCHOA [facility] - [address] [place] [address] 10/11/2019 09:01:17 10/11/2019 16:25:09 Sciatica 65670712 M54.30 Low back pain [id number] M54.5 [id number] Pallavi Palomares NP [facility] [address] [place] [address] 10/14/2020 13:22:48 10/16/2020 14:14:13 Wound cellulitis [id number] L03.90 Overview/H istory: Patient is a 75 year old alert female who presents with request to replace supportive cast to left thumb to minimize pain for healing cellulitis . Patient diagnosed with cellulitis 10/10/2020 and was treated with 2 doses of Vancomycin IV with follow up PO abx x 5 days. She was discharged with a hand fashioned cast/splin t and gauze for comfort. Patient discarded this cast today as it was quite soiled. Exam: Afebrile 98.2. HRR 98, S1, S2. LSCTA bilaterall y. Abdomen SNT, + bowel sounds x 4 quadrants. No CVA tenderness , no suprapubic tenderness . Normal neuro exam. Patient has well marked cellulitic area to left thumb and thumb joint. The area 1 cm inside the skin marking is light pink, it is not warm to touch, non tender. DDx considered , but not limited to: Cellulitis Fracture neg on xray 10/10/2020 abscess neg Work up/Results : Exam Plan/Discu ssion: Fashioned small cast to cradle left thumb/left thumb joint, cushioned with cotton dressing, wrapped with elastic bandage. Good perfusion to fingertips . Med rec completed Proper Personal Protective Equipment (PPE), including {{gloves, eye protection , masks, and gowns, shoe covers maria del carmen ves, eye protection and masks* maria del carmen ves, eye protection gloves, eye protection , N95 mask, gown, and shoe covers errol gical mask with face-shiel d, gloves, gown and shoe covers errol gical mask with face-shiel d, gloves}} were donned and doffed approprjg henry and all equipment cleaned using approved technique with germicidal disposable wipes prior to and after care of this patient according to [facility]'s infection prevention protocols. In order to obtain further informatio n and compare any laboratory results/va lues, I have accessed {{old patient records* p atient records on the [employer] r eviewed records with the PCP}}. This informatio n was pertinent in my medical decision making today. Health Concerns Section Related Observation LastModified by Organization Detai ls LastModified Time None Recorded Concern Status LastModified by Organization Details LastModified Time None Recorded Advance Directives Directive N: Payers Encounter Date Sequence Insurance Name Policy Number Policy Mcgraw Covered Member ID Mcgraw Member ID Guarantor Name 10/11/2019 1 [place] [employer] Nicci Boggs [id number] Nicci Boggs 10/11/2019 2 [place] [id number] Nicci Boggs [id number] Nicci Boggs 10/14/2020 1 [place] [employer] Nicci Boggs [id number] Nicci Boggs 10/14/2020 2 [place] [id number] Nicci Boggs [id number] Nicci Boggs Notes Date Note Type Note Provider Name and Address Organization Details Recorded Time 10/11/2019 text/html Mrs. Boggs is a 74 yo female new to and this provider who presents for evaluation of lower back pain radiating in both lags X6d; She reports that she had same pain on 08/23 and in 1998. Patient reports that she was diagnosed with bilateral sciatica; she denied any trauma, numbness, tingling or weakness of the extremities, changes in bowel or bladder function. HOLLY OCHOA [address] [place], [address], [place] - [facility] 10/11/2019 10:46:28 10/14/2020 text/html Patient is a 75 year old alert female who is known to and new to this provider. Patient chief complaint is request to replace left thumb splint. Patient was admitted 10/10/2020 for left thumb cellulitis for which she received 2 doses of Vancomycin IV antibiotics. She was discharged on Linezolid 600 mg po 2 times a day x 5 days. Patient has completed 2 days of her PO abx dosing. She was discharged with a cast splint to support her thumb. Medical history significant for HTN, osteoporosis, fibromyalgia, chronic pain. Pallavi Palomares NP [address] [place] [address], [address], [place] - [facility] 10/14/2020 15:22:19 OBGyn Episode No OBEpisode recorded.
[2024-06-07 17:56] LABS: MANUAL DIFF FLAG NO
[2024-06-07 18:06] LABS: Basophils Absolute Auto 0.1 X10*3/uL (0.0-0.2); Basophils Percent Auto 0.9 % (0-2); Eosinophils Absolute Auto 0.1 X10*3/uL (0.0-0.4); Eosinophils Percent Auto 1.9 % (0-4); Hematocrit 48.5 % (37.0-47.0); Hemoglobin 16.4 g/dl (12.0-16.0); Imm Gran Abs Auto 0.02 X10*3/uL (0.00-0.03); Imm Gran Pct Auto 0.3 % (0.0-0.4); Lymphocytes Absolute Auto 1.4 X10*3/uL (1.2-4.9); Lymphocytes Percent Auto 20.5 % (20-40); Mean Corpuscular HGB Conc 33.8 g/dl (31.0-35.0); Mean Corpuscular Hemoglobin 28.3 pg (27.0-33.0); Mean Corpuscular Volume 83.6 fL (80.0-98.0); Mean Platelet Volume 10.7 fL (9.4-12.3); Monocytes Absolute Auto 0.5 X10*3/uL (0.1-1.2); Monocytes Percent Auto 6.4 % (2-11); Neutrophils Absolute Auto 4.9 x10*3/uL (2.0-8.3); Platelet Count 292 X10*3/uL (160-400); Red Cell Distribution Width 15.1 % (11.0-16.0)
[2024-06-07 18:19] LABS: Alanine Aminotransferase 17 U/L (0-31); Aspartate Amino Transferase 22 U/L (5-31); C Reactive Protein < 0.10 mg/dL (< or = 0.50); Estimated Glomerular Filt Rate > 60
[2024-06-07 18:47] LABS: Erythrocyte Sedimentation Rate 4 MM/HR (0-20)
[2024-06-08 08:32] LABS: HBS Num1 0.05 mIU/mL (0-7.99); HBc Num1 0.11 S/CO (0.00-0.79); HBsAGNum1 0.34 S/CO (0.00-0.99); Hepatitis B Core Antibody Nonreactive (Nonreactive); Hepatitis B Surface Antigen Negative (Negative); ~HepC Num1 0.06 S/CO (0.00-0.79); ~Hepatitis B Surface Antibody NONREACTIVE (Nonreactive); ~Hepatitis C Antibody Nonreactive (Nonreactive)
[2024-06-09 14:33] LABS: Cyclic Citrullinated Peptide <16 UNITS
[2024-06-10 05:18] LABS: TS Negative Control Passed; TS Panel A 1; TS Panel B 0; TS Positive Control Passed; TSpotTB Negative (Negative)
[2024-06-10 10:59] LABS: Anti Nuclear Antibody Screen NEGATIVE (NEGATIVE)
[2024-06-12 22:59] LABS: Glucose-6-Phosphate Dehydrogen 14.7 U/g Hgb (7.0-20.5)
== END 2024-06-07 08:54 | disposition home or self-care (01) ==
LOC: HO.HKASLDS 08:53
PROVIDERS: PCP Pediatrics; Visit Provider Internal Medicine Rheumatology
DX: M17.0 Bilateral primary osteoarthritis of knee (principal); R22.9 Localized swelling, mass and lump, unspecified
CPT/HCPCS: 36415; 82565; 82955; 84450; 84460; 85025; 85652; 86038; 86140; 86200; 86481; 86704; 86706; 86803; 87340; 99202

== ENCOUNTER 2024-06-07 08:53 | Outpatient (AMB) | payer MEDICARE, SELFPAY ==
[2024-06-07 09:00] VITALS: BP 120/74; PULSE 106; O2SAT 98; BMI 21.7
--- NOTE | 2024-06-07 09:00 | A.OFFVIS_ITS ---
Vital Signs 06/07/24 09:00 Height 4 ft 11 in Weight 107 lb 8 oz BMI 21.7 BP 120/74 Blood Pressure Location Lt brachial Position Sitting Pulse 106 H Pulse Source Pulse Oximeter Pulse Oximetry (%) 98 Oxygen Delivery Method Room Air Intake Visit Reasons: OA Intake Note: Patient presents for follow up on fibromyalgia and osteoarthritis. She last saw Dr. Snell at [facility] on 05/06/21 Allergies Iodinated Contrast Media [IV CONTRAST] Allergy (Severe, Verified 09/19/23 08:51) Rash amoxicillin [AMOXICILLIN] Allergy (Intermediate, Verified 09/19/23 08:51) HIVES aspirin [ASA] Allergy (Intermediate, Verified 09/19/23 08:51) HIVES atenolol [ATENOLOL] Allergy (Intermediate, Verified 09/19/23 08:51) HIVES caffeine [CAFFEINE] Allergy (Intermediate, Verified 09/19/23 08:51) HIVES cat dander [CATS] Allergy (Intermediate, Verified 09/19/23 08:51) HIVES cefprozil [From CEFZIL] Allergy (Intermediate, Verified 09/19/23 08:51) HIVES cephalexin [From KEFLEX] Allergy (Intermediate, Verified 09/19/23 08:51) HIVES clarithromycin [From BIAXIN] Allergy (Intermediate, Verified 09/19/23 08:51) HIVES clindamycin [From CLEOCIN] Allergy (Intermediate, Verified 09/19/23 08:51) HIVES codeine [CODEINE] Allergy (Intermediate, Verified 09/19/23 08:51) HIVES corn [CORN] Allergy (Intermediate, Verified 09/19/23 08:51) HIVES diphenhydramine [From BENADRYL] Allergy (Intermediate, Verified 09/19/23 08:51) HIVES dog dander [DOGS] Allergy (Intermediate, Verified 09/19/23 08:51) HIVES egg [EGGS] Allergy (Intermediate, Verified 09/19/23 08:51) HIVES erythromycin base [From ERYTHROCIN] Allergy (Intermediate, Verified 09/19/23 08:51) ANAPHYLAXIS fentanyl [FENTANYL] Allergy (Intermediate, Verified 09/19/23 08:51) HIVES ghosh [GHOSH] Allergy (Intermediate, Verified 09/19/23 08:51) HIVES horse dander [HORSE DANDER] Allergy (Intermediate, Verified 09/19/23 08:51) HIVES ibuprofen [IBUPROFEN] Allergy (Intermediate, Verified 09/19/23 08:51) HIVES insect venom [MOSQUITO] Allergy (Intermediate, Verified 09/19/23 08:51) HIVES latex [LATEX] Allergy (Intermediate, Verified 09/19/23 08:51) HIVES levofloxacin [From LEVAQUIN] Allergy (Intermediate, Verified 09/19/23 08:51) HIVES metoprolol [METOPROLOL] Allergy (Intermediate, Verified 09/19/23 08:51) HIVES mite-Dermatophagoides farinae, florentin [DUST MITES] Allergy (Intermediate, Verified 09/19/23 08:51) HIVES mold [MOLD] Allergy (Intermediate, Verified 09/19/23 08:51) HIVES nut - unspecified [NUTS] Allergy (Intermediate, Verified 09/19/23 08:51) HIVES Penicillins [PCN] Allergy (Intermediate, Verified 09/19/23 08:51) Anaphylaxis soy [SOY] Allergy (Intermediate, Verified 09/19/23 08:51) HIVES Sulfa (Sulfonamide Antibiotics) [SULFA (SULFONAMIDE ANTIBIOTICS)] Allergy (Intermediate, Verified 09/19/23 08:51) HIVES sulfamethoxazole [From BACTRIM] Allergy (Intermediate, Verified 09/19/23 08:51) HIVES tetracycline [TETRACYCLINE] Allergy (Intermediate, Verified 09/19/23 08:51) HIVES tree and shrub pollen [TREE] Allergy (Intermediate, Verified 09/19/23 08:51) HIVES trimethoprim [From BACTRIM] Allergy (Intermediate, Verified 09/19/23 08:51) HIVES wheat [WHEAT] Allergy (Intermediate, Verified 09/19/23 08:51) HIVES chicken derived Allergy (Mild, Verified 09/19/23 08:51) Unknown vancomycin Allergy (Mild, Verified 06/07/24 09:04) rash all over body clavulanic acid [Augmentin] Allergy (Unknown, Verified 09/19/23 08:51) Unknown mannitol [Reclast] Allergy (Unknown, Verified 09/19/23 08:51) Unknown zoledronic acid [Reclast] Allergy (Unknown, Verified 09/19/23 08:51) Unknown linezolid Allergy (Verified 09/19/23 08:51) Hives prednisone Allergy (Verified 09/19/23 08:51) Rash shellfish derived Allergy (Verified 09/19/23 08:51) Rash doxycycline Adverse Reaction (Severe, Verified 09/19/23 08:51) Rash acetaminophen Adverse Reaction (Verified 09/19/23 08:51) Rash banana Adverse Reaction (Verified 09/19/23 08:51) Rash DUST Allergy (Intermediate, Uncoded 09/19/23 08:51) HIVES FRUIT Allergy (Intermediate, Uncoded 09/19/23 08:51) HIVES MADRIBON Allergy (Intermediate, Uncoded 09/19/23 08:51) HIVES VEGETABLES,FRESH Allergy (Intermediate, Uncoded 09/19/23 08:51) HIVES linezolide Adverse Reaction (Mild, Uncoded 06/07/24 09:04) sick, dizziness, nausea Ivp Dye- Omnipaque Adverse Reaction (Unknown, Uncoded 09/19/23 08:51) rash HPI HPI OA: Details: Lost to follow-up since 05/2021. New patient evaluation. She has pain in multiple joints: shoulders, hips, hands, knees. She has swelling in right foot. MS hands all day. Not self medicating pain due to multiple allergies. She has received prednisone in the past without any side effect. Prednisone has been used to treat allergies. She has had recurrent cellulitis of right foot. Last episode was 2021. She is being evaluated for intestinal mass with background of hx rectal prolapse, right hemicolectomy 2022 when intestinal mass was removed. She is homebound because of diarrhea and abdominal pain. [facility] Medical History Dysphagia Skin cancer of forehead Skin cancer Personal history of COVID-19 Lower extremity edema Hx of sinusitis Osteoporosis Fibromyalgia Left bundle branch block (LBBB) GERD (gastroesophageal reflux disease) Surgical History Hx of right hemicolectomy (01/30/22) Hx of section History of appendectomy Hx of hysterectomy History of esophagogastroduodenoscopy (EGD) Hx of colonoscopy Family History Father Bladder cancer Social History Household Members: Spouse Housing: Apartment Do you presently have visiting nurse or other home services: No Alcohol intake: never Patient Tobacco Use Status: Never used Tobacco Advance Directives Date on File: 08/05/21 service: No Current occupational status: retired Review of Systems Const All systems reviewed & are unremarkable except as noted in HPI and below Physical Exam Vital Signs: Last Vital Signs Pulse 106 H 06/07/24 09:00 BP 120/74 06/07/24 09:00 Pulse Ox 98 06/07/24 09:00 Oxygen Delivery Method Room Air 06/07/24 09:00 BMI result Body Mass Index 21.7 Const Other: General: Comfortable CVS: RRR Respiratory: clear to auscultation bilaterally. Good respiratory effort Skin: No lesions seen MSK: Tender to palpate left MCPs. 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 No synovitis in hands. She has good range of motion of upper extremities but it is slow with pain. Synovitis of bilateral MTPs present with ankle edema present. She has tenderness of MTPs, ankles and knees. Limited knee flexion 30 degrees bilateral due to pain. I am unable to rotate hips due to pain during exam. 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 I will start workup with labs and x-rays and we will have her come back with close follow-up to discuss results and next steps in management. Code(s): M13.0 - Polyarthritis, unspecified Category: Medical Plan: Labs ordered X-rays ordered Allergic to Tylenol and NSAIDs Return to clinic in 2-3 weeks Orders: Orders Aspartate Amino Transferase Today M13.0 - Polyarthritis, unspecified T Spot TB Today M13.0 - Polyarthritis, unspecified Hepatitis B,C Profile Today M13.0 - Polyarthritis, unspecified Erythrocyte Sedimentation Rate Today M13.0 - Polyarthritis, unspecified JENNIFER Reflex Titer and Pattern Today M13.0 - Polyarthritis, unspecified XR knee LT 2V Today M17.0 - Bilateral primary osteoarthritis of knee XR knee RT 2V Today M17.0 - Bilateral primary osteoarthritis of knee XR foot LT min 3V Today M13.0 - Polyarthritis, unspecified XR hand RT min 3V Today M13.0 - Polyarthritis, unspecified [id number]-[id number] Dehydrogen Today M13.0 - Polyarthritis, unspecified C Reactive Protein Today M13.0 - Polyarthritis, unspecified Alanine Aminotransferase Today M13.0 - Polyarthritis, unspecified Creatinine Today M13.0 - Polyarthritis, unspecified Cyclic Citrullinated Peptide Today M13.0 - Polyarthritis, unspecified Complete Blood Count Auto Diff Today M13.0 - Polyarthritis, unspecified XR knee standing BI Today M13.0 - Polyarthritis, unspecified XR shoulder RT min 2V Today M13.0 - Polyarthritis, unspecified XR shoulder LT min 2V Today M13.0 - Polyarthritis, unspecified XR foot RT min 3V Today M13.0 - Polyarthritis, unspecified XR hand LT min 3V Today M13.0 - Polyarthritis, unspecified Coding Level of Care Code New Pt Level 4 (97401) Complex EM visit Add On G2211 Diagnoses Polyarthritis M13.0
--- OUTSIDE RECORDS SUMMARY | 2024-06-07 09:05 | XMS_ITS | Continuity of Care Document ---
Author Organization [facility] Address [address] [address]- [facility] Name Relationship Address Phone MEG MARTIN spouse Unknown Unavailable RAVI-CRELUCRETIA, JAKE child Unknown Unavail able , ERIKA child Unknown Unavailable RAVI, JAKE child Unknown Unavailable Care Team Providers Care Tavern Keeper Name Role Phone Lawrence GERBER, Ruma Bauer Primary Care Physician Encounter [facility] ACCT R [id number] Date(s): 04/07/24 - 06/05/24 [facility] [address] [address] Attending Physician: Savanah Charlton Admitting Physician: Savanah Charlton Referring Physician: Savanah Charlton Encounter Type: Pre-Outpt Allergies, Adverse Reactions, Alerts Substance Criticality Severity Reaction Reaction Severity Status atenolol Active codeine Active clindamycin Active penicillin Active predniSONE Allergy to sulf a drugs Resolved ibuprofen Active aspirin Active doxycycline 1 High criticality Moderate Active tetracycline Active erythromycin Active amoxicillin Active sulfADIAZINE All sulfa drugs A ctive metoprolol Active sulfa drugs Active shellfish Active Benadryl, Topical 2 Active caffeine Active Keflex Active Cleocin T Active Cefzil Active Tums Active Augmentin Active Levaquin Active Tylenol Active Contrast Dye Active Dogs Active Dust Active Horses Active Latex rash Active Fosamax Active Bactrim Active linezolid Unable to assess criticality Persistent Mild Active Biaxin XL Active Adhesive Bandage rash Act sam Cats Active [place] Active Mold Active Nuts Active Soy Products [...] Given 1Admin Note: vis given 03-21-2008 Medications EpiPen 2-Jerman = 0.3 mg, Intramuscular, Once, 0 Refills, Maintenance, 05/29/22 1:39:00 PM EST, Partial fill upon patient request if the prescription is for a schedule II opioid drug. Start Date: 05/29/22 Status: Ordered Repeat number: 1 ibandronate 150 mg oral tablet 1 tablet = 150 mg, By Mouth, Every 30 days, Swallow whole w/6-8oz water 1HR before first food, drink, med-Do not lie down for 1HR & until after first food, # 3 tablet, 2 Refills, Maintenance, 04/06/24 10:54:00 AM EST, Tablet, [facility]/pharmacy #5, Partial fill upon patient request if the prescription is for a schedule II opioid drug., 149, cm, 03/29/24 9:26:00 EST, Height, 49.7, kg, 02/16/24 8:57:00 EDT, Dry Weight Start Date: 04/06/24 Status: Ordered Quantity: 3.0 Unit: tablet Repeat number: 3 lisinopril 5 mg oral tablet 1, tablet, By Mouth, Daily, # 90 tablet, Refills 1, Maintenance, 11/30/23 9:59:00 PM EDT, Route to Pharmacy Electronically, [id number], 150.2, cm, 11/23/23 10:08:00 EDT, Height, 46.6, kg, 02/03/23 9:17:00 EDT, Dry Weight Start Date: 11/30/23 Status: Ordered Quantity: 90.0 Unit: tablet Repeat number: 1 Omeprazole = 40 mg, By Mouth, Daily, 0 Refills, Maintenance, 09/24/21 9:04:00 AM EDT, Partial fill upon patientrequest if the prescription is for a schedule II opioid drug. Start Date: 09/24/21 Status: Ordered Repeat number: 1 Problem List Condition Confirmation Course Effective Dates Status H ealth Status Informant Abdominal pain, generalized Confirmed Active Acid reflux Confirmed Active Multiple drug allergies Confirmed Active Anxiety Confirmed Active Arthritis Confirmed Active Arthritis of carpometacarpal (CMC) joint of left thumb Confirmed Active CMC arthritis Confirmed Active Mass of cecum Confirmed Active Change in bowel habits Confirmed Active Multilevel degenerative disc disease Confirmed Active Leg edema Confirmed Active Elevated blood pressure reading without [...] 100 in lifetime) entered on: 05/30/19 Sex Sex Representation Female (finding) Patient Care team information Care Team Personnel Name: Yni Hsu Position: [facility] Onco RN Member Role: Primary Care Nurse Name: Ruma Bravo MD Position: [facility] Physician - Primary Care Member Role: PCP Address: [address] [place] [address] Family Medicine [address] Telecom: Name: Shikha Rivera RN Position: [facility] RN Member Role: Primary Care Nurse Name: Consuelo Louis RN Position: [facility] RN Member Role: Primary Care Nurse Name: Cherry Olsen MD Position: [facility] BOATBUILDER APPRENTICE WOOD MD Member Role: [employer] BOATBUILDER APPRENTICE WOOD [facility] - [address] Telecom: Name: Maeve Jones RN Position: [facility] RN Member Role: Primary Care Nurse Care Team Related Persons Name: MEG MARTIN Name: JAKE RODRIGUES Insurance Providers Guarantor name: NAUN VERONICA Health Plan Information #: 1 Payer: MEDICARE PART B OUTPT Member Number: [id number] Policy Number: NA Group Number: NA Health Plan Information #: 2 Payer: MEDEX Member Number: [id number] Policy Number: NA Group Number: NA
--- OUTSIDE RECORDS SUMMARY | 2024-06-07 09:06 | XMS_ITS | Continuity of Care Document ---
Author Organization [facility] Address [address] [address]- [facility] Name Relationship Address Phone MEG MARTIN spouse Unknown Unavailable -CRELUCRETIA, JKAE child Unknown Unavail able ERIKA RODRIGUES child Unknown Unavailable RAVI, JAKE child Unknown Unavailable Care Team Providers Care Senior Windows Engineer Name Role Phone Lawrence GERBER, Ruma Bauer Primary Care Physician Encounter [facility] Date(s): 05/03/24 - 06/02/24 [facility] [address], [place] [address] Encounter Type: Triage Allergies, Adverse Reactions, Alerts Substance Criticality Severity Reaction Reaction Severity Status atenolol Active codeine Active erythromycin Active penicillin Active metoprolol Active predniSONE Allergy to sulf a drugs Resolved ibuprofen Active aspirin Active doxycycline 1 High criticality Moderate Active tetracycline Active clindamycin Active amoxicillin Active sulfADIAZINE All sulfa drugs A ctive sulfa drugs Active shellfish Active Benadryl, Topical 2 Active caffeine Active Keflex Active Cefzil Active Tums Active Levaquin Active Tylenol Active Contrast Dye Active Dogs Active Dust Active Horses Active Latex rash Active Cleocin T Active Fosamax Active Augmentin Active Bactrim Active linezolid Unable to assess criticality Persistent Mild Active Biaxin XL Active Adhesive Bandage rash Act sam Cats Active [place] Active Mold Active Nuts Active Soy Products [...] Refills, Maintenance, 04/06/24 10:54:00 AM EST, Tablet, [facility]/pharmacy #[id number], Partial fill upon patient request if [...] 9:59:00 PM EDT, Route to Pharmacy Electronically, [facility], 150.2, cm, 11/23/23 10:08:00 EDT, Height, 46.6, [...] - Primary Care Member Role: PCP Address: [address] [place] [address] Family Medicine [address] Telecom: Name: Shikha Rivera RN Position: [facility] RN Member Role: Primary Care Nurse Name: Consuelo Louis RN Position: [facility] RN Member Role: Primary Care Nurse Name: Cherry Olsen MD Position: [facility] WEAVER HAND LOOM MD Member Role: [employer] WEAVER HAND LOOM Physician Address: [address] [place] [address] Women[facility] [employer] - [address] Telecom: Name: Maeve Jones RN Position: [facility] RN Member Role: Primary Care Nurse Care Team Related Persons Name: MEG MARTIN Name: JAKE RODRIGUES Insurance Providers Guarantor name: NAUN MARTIN Health Plan Information #: 1 Payer: MEDICARE PART B OUTPT Member Number: NA Policy Number: NA Group Number: NA Health Plan Information #: 2 Payer: MEDEX Member Number: NA Policy Number: NA Group Number: NA
--- OUTSIDE RECORDS SUMMARY | 2024-06-07 09:06 | XMS_ITS ---
Author Organization [facility] on Address Unknown Allergies, Adverse Reactions, Alerts Substance Reaction Status Noted Date Resolved Date Trimethoprim Nausea active 12/07/2021 Tetracycline Nausea active 12/07/2021 Sulfa Antibiotics Nausea active 12/07/2021 Reclast active 12/10/2021 predniSONE active 12/10/2021 Penicillins Nausea active 12/07/2021 Nuts Nausea active 12/07/2021 levoFLOXacin Nausea active 12/07/2021 latex active 12/10/2021 IV contrast active 12/10/2021 Ibuprofen Nausea active 12/07/2021 fentaNYL Nausea active 12/07/2021 Erythromycin Nausea active 12/07/2021 Egg Nausea active 12/07/2021 Doxycycline Nausea active 12/07/2021 Dogs Nausea active 12/07/2021 diphenhydrAMINE Nausea active 12/07/2021 Portal Nausea active 12/07/2021 Codeine Nausea active 12/06/2021 Clindamycin Nausea active 12/06/2021 Clarithromycin Nausea active 12/06/2021 Cephalexin Nausea active 12/06/2021 Cefprozil Nausea active 12/06/2021 Caffeine Nausea active 12/06/2021 Augmentin Nausea active 12/07/2021 Atenolol Nausea active 12/06/2021 Aspirin Nausea active 12/06/2021 Amoxicillin Nausea active 12/06/2021 Problems Problem Status Start Date End Date CELLULITIS OF RIGHT LOWER LI MB (Primary) (L03.115 - ICD-10-CM) ACTIVE 12/06/2021 FIBROMYALGIA (M79.7 - ICD-10-CM) ACTIVE 12/07/19 LEFT BUNDLE-BRANCH BLOCK, UNSPECIFIED (I44.7 - ICD-10- CM) ACTIVE 12/06/2021 EDEMA, UNSPECIFIED (R60.9 - ICD-10-CM) ACTIVE AGE-RELATED OSTEOPOROSIS WIT HOUT CURRENT PATHOLOGICAL FRACTURE (M81.0 - ICD-10-CM) ACTIVE 12/06/2021 DYSPHAGIA, UNSPECIFIED (R13.10 - ICD-10-CM) ACTIVE 12/06/2021 GASTRO-ESOPHAGEAL REFLUX DIS EASE WITHOUT ESOPHAGITIS (K21.9 - ICD-10-CM) ACTIVE 12/06/2021 Encounters Encounter Performer Performer Role Encounter Diagnoses Location Date Discharge - Discharged to home or self care - [facility] Home Health - Corporate - Private home/apt. with home health services [facility] [place] 12/06/2021 06:17 pm EDT - 12/16/2021 01:40 pm EDT Immunizations Vaccine Date SARS-COV-2 (COVID-19) 08/29/2020 12:00 a m EDT Social History
--- OUTSIDE RECORDS SUMMARY | 2024-06-07 09:06 | XMS_ITS | Clinical Summary ---
Author Organization [facility] Address [address] [place] [phone] Phone Care Team Providers Care Ultrasound Applications Specialist Name Role Phone Ruma Bravo MD Primary Care Provider Allergies Active Allergy Reactions Criticality Noted Date Comments Adhesive 07/25/2021 Amoxicillin Hives 09/12/2021 Amoxicillin-Pot Clavulanate 07/26/19 Aspirin 07/25/2021 Atenolol 07/25/2021 Cefprozil 07/25/2021 Cephalexin 09/12/2021 Chicken Derived 09/12/2021 Clarithromycin Hives 09/12/2021 Clindamycin 07/25/2021 Clindamycin Phosphate 09/12/2021 Codeine 07/25/2021 [place] 09/12/2021 Cyclobenzaprine 07/25/2021 Doxycycline 07/25/2021 Egg 09/12/2021 Erythromycin 09/12/2021 Fentanyl 07/25/2021 Ibuprofen 07/25/2021 Iodinated Contrast Media 09/12/2021 Latex 07/25/2021 Levofloxacin 09/12/2021 Lidocaine 07/25/2021 Metoprolol 09/12/2021 Mold 07/25/2021 Nut - Unspecified 09/12/2021 Other Rash 09/12/2021 Megavite Fruits Penicillins 03/29/2019 Pork Derived (Porcine) 09/12/2021 Pregabalin 07/25/2021 Shellfish Containing Products 2021 Soy 09/12/2021 Sulfa (Sulfonamide Antibiotics) 09/01 Sulfamethoxazole-Trimethoprim 2021 Tetracycline 09/12/2021 Wheat 09/12/2021 Zoledronic Acid 09/12/2021 Medications Medication Sig Dispensed Refills Start Date End Date Status lisinopriL (PRINIVIL,ZESTRIL) 5 mg tablet Take 1 Tablet by mouth daily. Active omeprazole (PriLOSEC) [address] capsule Take 1 Capsule by mouth daily. Take in am on empty stomach, wait 30 mins and then eat to activate the medication 07/25/2021 Active ibandronate (BONIVA) 150 mg tablet Take 1 tablet (150 mg total) by mouth every 30 (thirty) days. Take in morning with full glass of water on an empty stomach. No food, drink, meds, or lying down for 60 minutes after. Active omeprazole (PriLOSEC) [address] capsule Take 1 capsule (40 mg total) by mouth 1 (one) time each day. Do not crush or chew. 30 each 05/20/2024 05/20/2025 Active Active Problems Problem Noted Date Diagnosed Date Mejias's esophagus without dysplasia 05/21/2024 Diverticulosis 04/07/2024 GERD (gastroesophageal reflux disease) Osteoporosis 04/07/2024 Rectal bleeding 04/07/2024 Rectal pain 04/07/2024 Tubulovillous adenoma 04/07/2024 Overview (04/07/2024): CN 08/2021 Abdominal discomfort in left lower quadrant 09/2023 Chronic idiopathic constipation 03/17/2023 Abdominal wall pain in periumbilical region 06/2022 Pill dysphagia 12/06/2021 Anxiety 09/12/2021 Colonic mass 09/12/2021 Overview (04/07/2024): CN 08/05/21 Erosive esophagitis 09/12/2021 Overview (04/07/2024): EGD 08/05/21, biopsy negative for SBE Hemorrhoid prolapse 09/12/2021 Hemorrhoids 09/12/2021 Overview (04/07/2024): Internal/external on CN 08/2021 Hiatal hernia 09/12/2021 Overview (04/07/2024): EGD 08/05/21 Hypothyroid 09/12/2021 Osteoarthritis 09/12/2021 Fibromyalgia 10/29/2017 Overview (04/07/2024): I reviewed with patient lab work showing a vitamin D level of 31 with a hemoglobin of 15.4 and hematocrit of 47.3 and a white count of 6000 with a normal differential. Asked her to take an extra 800 units a day of vitamin D at a separate time from her multivitamin which contains vitamin D. Fall and fracture prevention strategies were discussed. The patient did have a Reclast infusion in August 2015 but became quite sick with swollen legs afterwards and would not like to repeat that so after full discussion of risks and benefits I will schedule her for a 60 mg Prolia injection. LBBB (left bundle branch block) 07/22/2017 Overview (04/07/2024): [facility] No cardiology Encounters Date Type Department Care Team Description 05/20/2024 2:10 PM EST Office Visit Gastroenterology - [place] [address] [facility] [address] [facility] [address] [place] [id number] Toñito Pride MD Generalized abdominal pain (Primary Dx); Gastroesophageal reflux disease with esophagitis, unspecified whether hemorrhage; Mejias's esophagus without dysplasia; History of right hemicolectomy; Abdominal wall pain; Tubulovillous adenoma 04/06/2024 8:45 AM EST - 04/06/2024 11:59 PM EST Hospital Encounter [facility] [address] [place] [address] Abdominal pain Discharge Disposition: Home or Self Care from Last 3 Months Surgical History Surgery Date Site/Laterality Comments APPENDECTOMY PROCEDURE: ME APPENDECTOMY OTHER SURGICAL HISTORY PROCEDURE: ME TOTAL ABDOMINAL HYSTERECT W/WO RMVL TUBE OVARY TONSILLECTOMY PROCEDURE: ME TONSILLECTOMY PRIMARY/SECONDARY <AGE 14 COLONOSCOPY PROCEDURE: HISTORICAL COLONOSCOPY; COMMENT: last in 2013 Jaylyn Bradford OTHER SURGICAL HISTORY PROCEDURE: HISTORY OTHER; COMMENT: skin cancer removed from forehead COLONOSCOPY 08/05/2021 PROCEDURE: HISTORICAL COLONOSCOPY; COMMENT: hot snare polypectomy, large cecal mass- ESOPHAGOGASTRODUODENOSCOPY 08/05/2021 PROCEDURE: ME ESOPHAGOGASTRODUODENOSCOPY TRANSORAL DIAGNOSTIC; COMMENT: esophagitis, hiatal hernia OTHER SURGICAL HISTORY 01/30/2022 Right PROCEDURE: ---- OTHER ----; COMMENT: colectomy Medical History Medical History Date Comments GERD (gastroesophageal reflux disease) DX:GERD (gastroesophageal reflux disease) LBBB (left bundle branch block) DX:LBBB (left bundle branch block) Chronic pain syndrome DX:Chronic pain syndrome Osteoporosis DX:Osteoporosis Abdominal discomfort in left lower quadrant DX:Abdominal discomfort in l eft lower quadrant Diverticulosis DX:Diverticulosi s Rectal bleeding DX:Rectal bleedi ng Dental abscess DX:Dental absces s Rectal pain DX:Rectal pain Pill dysphagia DX:Pill dysphagi a Fibromyalgia 09/12/2021 DX:Fibromyalgia Osteoarthritis 09/12/2021 DX:Osteoarthriti s Osteoarthritis 09/12/2021 DX:Osteoarthriti s Anxiety 09/12/2021 DX:Anxiety Hypothyroid 09/12/2021 DX:Hypothyroid Colonic mass 09/12/2021 DX:Colonic mass; COMMENT: CN 08/05/21 Erosive esophagitis 09/12/2021 DX:Erosive e sophagitis; COMMENT: EGD 08/05/21, biopsy negative for SBE Hemorrhoid prolapse 09/12/2021 DX:Hemorrhoi d prolapse Hemorrhoids 09/12/2021 DX:Hemorrhoids; COMMENT: Internal/external on CN 08/2021 Hiatal hernia 09/12/2021 DX:Hiatal hernia ; COMMENT: EGD 08/05/21 History of basal cell cancer 09/12/2021 DX: History of basal cell cancer; COMMENT: S/p surgical removal from forehead History of COVID-19 09/12/2021 DX:History o f COVID-19; COMMENT: 04/2020 Tubulovillous adenoma DX:Tubulov illous adenoma; COMMENT: CN 08/2021 Family History Medical History Relation Name Comments Depression Brother Colon polyps Daughter Bladder Cancer Father Ovarian cancer Mother depression, o steoporosis, alzheimers Depression Sister Relation Name Status Comments Brother Daughter Alive Father Mother Sister Social History Tobacco Use Types Packs/Day Years Used Date Smoking Tobacco: Never Smokeless Tobacco: Never Alcohol Use Standard Drinks/Week Comments No 0 (1 standard drink = 0.6 oz pur e alcohol) Sex and Gender Information Value Date Recorded Sex Assigned at Not on file Gender Identity Not on file Sexual Orientation Not on file Job Start Date Occupation Industry Not on file Not on file Not on file Obstetrics History Last Filed Vital Signs Vital Sign Reading Time Taken Comments Blood Pressure 124/67 05/20/2024 2:13 PM EST Pulse 104 05/20/2024 2:13 PM EST Temperature - - Respiratory Rate - - Oxygen Saturation 97% 05/20/2024 2:13 PM EST Inhaled Oxygen Concentration - - Weight 48.1 kg (106 lb) 05/20/2024 2:13 PM EST Height 149.9 cm (4' 11 ) 05/20/2024 2:13 PM EST Body Mass Index 21.41 05/20/2024 2:13 PM EST Plan of Treatment Health Maintenance Due Date Last Done Comments Pneumococcal Vaccine: 65+ Ye ars (1 of 2 - PCV) 1951 Zoster Vaccines (1 of 2) 1966 DTaP,Tdap,and Td Vaccines (2 - Td or Tdap) 01/26/2020 2010 COVID-19 Vaccine (2 - Pfizer risk series) 09/19/2020 08/29/2020 RSV Immunization Patients 60 + Years Old (1 - 1-dose 75+ series) 2022 Depression Screening 04/05/2022 Falls Risk Assessment 04/05/2022 Hepatitis C Screening 04/05/2022 Medicare Annual Wellness Visit 04/05/2022 Osteoporosis Screening (Bone Density Screening) 04/05/2022 Social Influencers of Health Screening 04/05/2022 Influenza Vaccine (#1) 2024 Colorectal Cancer Screening: Colonoscopy Discontinued 08/05/2021 HIB Vaccines Aged Out No longer eligi ble based on patient's age to complete this topic HPV Vaccines Aged Out No longer eligi ble based on patient's age to complete this topic Hepatitis A Vaccines Aged Out No long er eligible based on patient's age to complete this topic Hepatitis B Vaccines Aged Out No long er eligible based on patient's age to complete this topic IPV Vaccines Aged Out No longer eligi ble based on patient's age to complete this topic MMR Vaccines Aged Out No longer eligi ble based on patient's age to complete this topic Meningococcal ACWY Vaccine Aged Out N o longer eligible based on patient's age to complete this topic RSV Immunization Patients Un oli 20 months Aged Out No longer eligible b ased on patient's age to complete this topic Varicella Vaccines Aged Out No longer eligible based on patient's age to complete this topic Procedures Procedure Name Priority Date/Time Associated Diagnosis Comments US ABDOMEN COMPLETE Routine 04/06/2024 9 :54 AM EST Abdominal pain HM COLONOSCOPY Routine 08/05/2021 from Last 3 Months or Most Recently Relevant to Health Maintenance Results * US Abdomen Complete (04/06/2024 9:54 AM EST) Anatomical Region Laterality Modality Body Ultrasound 04/06/2024 10:3 0 AM EST Impressions 04/06/2024 10:35 AM EST No etiology for pain demonstrated. Specifically no cholelithiasis or biliary dilation. -------- FINAL REPORT -------- Dictated By: Adi Keen Dictated Date: 04/06/2024 10:30 ET Assigned Physician: Adi Keen Reviewed and Electronically Signed By: Adi Keen Signed Date: 04/06/2024 10:35 ET Workstation ID: [id number] Transcribed By: Self Edit Transcribed Date: 04/06/2024 10:30 ET Narrative 04/06/2024 10:35 AM EST EXAMINATION: ABDOMEN ULTRASOUND CLINICAL INFORMATION: Abdomen pain COMPARISON: None. TECHNIQUE: Ultrasound of the abdomen FINDINGS: QUALITY: Portions of the pancreas were obscured by bowel gas PANCREAS: No suspicious abnormality in the visualized portions of the pancreas ABDOMINAL AORTA/IVC: No abdominal aortic aneurysm demonstrated. Portions of the IVC are visualized which appear within normal limits LIVER: The right lobe of the liver measures approximately 13.4 cm. The liver contour appears smooth. The portal tracts are visualized. The background hepatic echotexture appears homogeneous. Sound penetrates through the liver and visualizes the diaphragm. No suspicious focal liver lesion. BILIARY: The gallbladder is not fully distended. There is no cholelithiasis, gallbladder wall thickening or pericholecystic fluid. COMMON BILE DUCT: The common duct measures 0.3 cm which is within normal limits. GALLBLADDER TENDERNESS: There is no reported tenderness to transducer pressure over the gallbladder. KIDNEYS: Right renal length: ??9.3 cm in greatest length. Left renal length: 9.3 cm in greatest length There is no dilation of the intrarenal collecting system. There is no shadowing renal calculus. No suspicious focal lesion demonstrated. SPLEEN: The spleen measures approximately 9.6 cm. No focal abnormality. FLUID: No intraperitoneal fluid demonstrated in the upper abdomen Procedure Note Adi Keen MD - 04/06/2024 EXAMINATION: ABDOMEN ULTRASOUND CLINICAL INFORMATION: Abdomen pain COMPARISON: None. TECHNIQUE: Ultrasound of the abdomen FINDINGS: QUALITY: Portions of the pancreas were obscured by bowel gas PANCREAS: No suspicious abnormality in the visualized portions of thepancreas ABDOMINAL AORTA/IVC: No abdominal aortic aneurysm demonstrated. Portionsof the IVC are visualized which appear within normal limits LIVER: The right lobe of the liver measures approximately 13.4 cm. Theliver contour appears smooth. The portal tracts are visualized. Thebackground hepatic echotexture appears homogeneous. Sound penetratesthrough the liver and visualizes the diaphragm. No suspicious focal liver lesion. BILIARY: The gallbladder is not fully distended. There is nocholelithiasis, gallbladder wall thickening or pericholecystic fluid. COMMON BILE DUCT: The common duct measures 0.3 cm which is within normallimits. GALLBLADDER TENDERNESS: There is no reported tenderness to transducerpressure over the gallbladder. KIDNEYS: Right renal length: 9.3 cm in greatest length. Left renal length: 9.3 cm in greatest length There is no dilation of the intrarenal collecting system. There is noshadowing renal calculus. No suspicious focal lesion demonstrated. SPLEEN: The spleen measures approximately 9.6 cm. No focal abnormality. FLUID: No intraperitoneal fluid demonstrated in the upper abdomen IMPRESSION: No etiology for pain demonstrated. Specifically no cholelithiasis orbiliary dilation. -------- FINAL REPORT -------- Dictated By: Adi Keen Dictated Date: 04/06/2024 10:30 ET Assigned Physician: Adi Keen Reviewed and Electronically Signed By: Adi Keen Signed Date: 04/06/2024 10:35 ET Workstation ID: [id number] Transcribed By: Self Edit Transcribed Date: 04/06/2024 10:30 ET Toñito Pride MD [facility] US PROCEDURES * Colonoscopy (08/05/2021) Colonoscopy Abstracted, no interpretation Anatomical Region Laterality Modality Other Historical Provider MD CHEPE Gaines from Last 3 Months or Most Recently Relevant to Health Maintenance Advance Directives Documents on File Type Date Recorded Patient Lead Network Engineer Expl anation Health Care Decision (hx) 02/03/2022 AD NGUYỄN DIRECTIVE Health Care Decision (hx) 02/03/2022 AD NGUYỄN DIRECTIVE Health Care Decision (hx) 02/03/2022 AD NGUYỄN DIRECTIVE Health Care Decision (hx) 02/03/2022 AD NGUYỄN DIRECTIVE Health Care Decision (hx) 02/03/2022 AD NGUYỄN DIRECTIVE Care Teams Ultrasound Applications Specialist Relationship Specialty Start Date End Date Ruma Bravo MD [address] [address] PCP - General Internal Medicine 05/21/24
--- OUTSIDE RECORDS SUMMARY | 2024-06-07 09:06 | XMS_ITS | Continuity of Care Document ---
Author Organization [facility] Address [address] [address]- [facility] Name Relationship Address Phone MEG MARTIN spouse Unknown Unavailable -CRELUCRETIA, JAKE child Unknown Unavail able ERIKA RODRIGUES child Unknown Unavailable RAVI, JAKE child Unknown Unavailable Care Team Providers Care Quarry Supervisor Name Role Phone Lawrence GERBER, Ruma Bauer Primary Care Physician [place] [id number] Date(s): 03/03/24 - 05/22/24 [facility] [address] [place] [address] [[email or web address] Attending Physician: Savanah Charlton Admitting Physician: Savanah Charlton Referring Physician: Savanah Charlton Encounter Type: Pre-Outpt Allergies, Adverse Reactions, Alerts Substance Criticality Severity Reaction Reaction Severity Status atenolol Active codeine Active penicillin Active predniSONE Allergy to sulf a drugs Resolved ibuprofen Active aspirin Active doxycycline 1 High criticality Moderate Active tetracycline Active clindamycin Active erythromycin Active amoxicillin Active sulfADIAZINE All sulfa drugs A ctive metoprolol Active sulfa drugs Active shellfish Active Keflex Active Cleocin T Active caffeine Active Benadryl, Topical 2 Active Cefzil Active Tums Active Levaquin Active Tylenol Active Contrast Dye Active Horses Active Latex rash Active Fosamax Active Augmentin Active Bactrim Active linezolid Unable to assess criticality Persistent Mild Active Biaxin XL Active Adhesive Bandage rash Act sam Cats Active [place] Active Dogs Active Dust Active Mold Active [...] Maintenance, 04/06/24 10:54:00 AM EST, Tablet, [facility]/pharmacy #5, Partial fill upon patient request if [...] EDT, Route to Pharmacy Electronically, [id number], 150.2, cm, 11/23/23 10:08:00 EDT, Height, 46.6, [...] Care Team Personnel Name: Yin Hsu Position: [facility] Onco RN Member Role: Primary Care Nurse Name: Ruma Bravo MD Position: [facility] Physician - Primary Care Member Role: PCP Address: [address] [place] [address] Family Medicine [address] Telecom: Name: Shikha Rivera RN Position: [facility] RN Member Role: Primary Care Nurse Name: Consuelo Louis RN Position: [facility] RN Member Role: Primary Care Nurse Name: Cherry Olsen MD Position: [facility] BOAT DOCK OPERATOR MD Member Role: Lifetime BOAT DOCK OPERATOR [facility]ician [facility] Ship Boat Or Barge Mate - [address] Telecom: Name: Maeve Jones RN Position: [facility] RN Member Role: Primary Care Nurse Care Team Related Persons Name: MEG MARTIN Name: JAKE RODRIGUES Insurance Providers Guarantor name: NAUN VERONICA Health Plan Information #: 1 Payer: MEDICARE PART B OUTPT Member Number: [id number] Policy Number: NA Group Number: NA Health Plan Information #: 2 Payer: MEDEX Member Number: [id number] Policy Number: NA Group Number: NA
--- OUTSIDE RECORDS SUMMARY | 2024-06-07 09:06 | XMS_ITS | Continuity of Care Document ---
Author Organization [facility] Address [address] [place] [address]- Care Team Providers Care Leak Gang Supervisor Name Role Phone Lawrence GERBER, Ruma Bauer Primary Care Physician [place] [facility] [place] 05/05/24 - 06/04/24 [facility] [address] [place] [address]- Encounter Type: Triage Allergies, Adverse Reactions, Alerts Substance Criticality Severity Reaction Reaction Severity Status atenolol Active codeine Active erythromycin Active penicillin Active predniSONE Allergy to sulf a drugs Resolved ibuprofen Active aspirin Active doxycycline 1 High criticality Moderate Active tetracycline Active clindamycin Active amoxicillin Active sulfADIAZINE All sulfa drugs A ctive metoprolol Active sulfa drugs Active shellfish Active Benadryl, Topical 2 Active caffeine Active Keflex Active Cefzil Active Tums Active Levaquin Active Tylenol Active Contrast Dye Active Horses Active Latex rash Active Cleocin T Active Fosamax Active Augmentin Active Bactrim Active linezolid Unable to assess criticality Persistent Mild Active Biaxin XL Active Adhesive Bandage rash Act sam Cats Active Ralph Active Dogs Active Dust Active Mold Active [...] Refills, Maintenance, 04/06/24 10:54:00 AM EST, Tablet, [facility]/pharmacy #[id number], Partial fill upon patient request if [...] 9:59:00 PM EDT, Route to Pharmacy Electronically, [id number], 150.2, cm, 11/23/23 10:08:00 EDT, Height, 46.6, [...] Care Team Personnel Name: Yin Hsu Position: [facility] Onco RN Member Role: Primary Care Nurse Name: Ruma Bravo MD Position: [facility] Physician - Primary Care Member Role: PCP Address: [address] [place] [address] Family Medicine [address] Telecom: Name: Shikha Rivera RN Position: [facility] RN Member Role: Primary Care Nurse Name: Consuelo Louis RN Position: [facility] RN Member Role: Primary Care Nurse Name: Cherry Olsen MD Position: [facility] EXCHANGE UNDERWRITING CONSULTANT MD Member Role: Lifetime EXCHANGE UNDERWRITING CONSULTANT Physician Address: [address] [place] [address] Women's Health Provider Relations Advocate [address] Telecom: Name: Maeve Jones RN Position: [facility] RN Member Role: Primary Care Nurse [...]
--- OUTSIDE RECORDS SUMMARY | 2024-06-07 09:06 | XMS_ITS | Continuity of Care Document ---
Author Organization [facility] Address [address] [place] [address]- Care Team Providers Care Nike Athlete Name Role Phone Ruma Bravo MD Primary Care Physician [place] [facility] Date(s): 05/13/24 - 05/20/24 [facility] [address] [place] [address]- Encounter Diagnosis Leg swelling(Discharge Diagnosis) - 05/15/24 Multiple drug allergies(Discharge Diagnosis) - 05/15/24 Attending Physician: Ruma Bravo MD Encounter Type: Office Visit Allergies, Adverse Reactions, Alerts Substance Criticality Severity Reaction Reaction Severity Status atenolol Active codeine Active penicillin Active ibuprofen Active aspirin Active doxycycline 1 High criticality Moderate Active tetracycline Active clindamycin Active erythromycin Active amoxicillin Active sulfADIAZINE All sulfa drugs A ctive metoprolol Active predniSONE Allergy to sulf a drugs Resolved caffeine Active sulfa drugs Active shellfish Active Benadryl, Topical 2 Active Keflex Active Cefzil Active Tums Active Levaquin Active Tylenol Active Biaxin XL Active Contrast Dye Active Horses Active Latex rash Active Cleocin T Active Fosamax Active Augmentin Active Bactrim Active linezolid Unable to assess criticality Persistent Mild Active Adhesive Bandage rash Act sam Cats Active [place] Active Dogs Active Dust Active Mold Active [...] 10:54:00 AM EST, Tablet, [facility]/pharmacy #[id number], Partial fill upon patient request if [...] EDT, Route to [facility]acy [facility]ically, [id number], 150.2, cm, 11/23/23 10:08:00 EDT, Height, 46.6, [...] Dates Health Status Cl inical Service Informant Leg swelling Discharge Diagnosis 05/15/24 Multiple drug allergies Discharge Diagnosis 05/15/24 Vital Signs Most recent to oldest [Reference Range]: 1 Height 149 cm (05/13/24 11:13 AM) Weight 48.3 kg (05/13/24 11:13 AM) Oxygen Saturation [94-100 %] 95 % (05/13/24 11:13 AM) Pulse Rate [55-90 bpm] 104 bpm *H* (05/13/24 11:13 AM) Body Mass Index [18.5-24.99 kg/m2] 21.76 kg/m2 (05/13/24 11:13 AM) Blood Pressure [90-138/55-84 mm Hg] 114/ 72mm Hg (05/13/24 11:13 AM) Blood pressure sites Arm, left (05/13/24 11:13 AM) Weight Obtained Via Standing scale (05/13/24 11:13 AM) Social History Social History Type Response Smoking Status Never (less than 100 in lifetime) entered on: 05/30/19 Sex Sex Representation Female (finding) Patient Care team information Care Team Personnel Name: Yin Hsu Position: [facility] Onco RN Member Role: Primary Care Nurse Name: Ruma Bravo MD Position: [facility] Physician - Primary Care Member Role: PCP Address: [address] [place] [address] Telecom: Name: Shikha Rivera RN Position: [facility] RN Member Role: Primary Care Nurse Name: Consuelo Louis RN Position: [facility] RN Member Role: Primary Care Nurse Name: Cherry Olsen MD Position: [facility] PLANT WORKER MD Member Role: Lifetime PLANT WORKER Physician Address: [address] [place] [address] Women's Health Sales Project Engineer - [address] Telecom: Name: Maeve Jones RN Position: [facility] RN Member Role: Primary Care Nurse Care Team Related Persons Name: MEG MARTIN Name: JAKE RODRIGUES Insurance Providers Guarantor name: NAUN MARTIN Health Plan Information #: 1 Payer: MEDICARE PART B OUTPT Member Number: [id number] Policy Number: NA Group Number: NA Health Plan Information #: 2 Payer: MEDEX Member Number: [id number] Policy Number: NA Group Number: NA
--- OUTSIDE RECORDS SUMMARY | 2024-06-07 09:06 | XMS_ITS | Encounter Summary ---
Author Organization [facility] Address [address] [place] [address] Care Team Providers Care Monotype Caster Name Role Phone Ruma Bravo [employer] OPERATOR Primary Care Provider Reason for Visit * Reason Comments Follow-up imaging Encounter Details Date Type Department Care Team ([facility] Contact Info) Description 05/20/2024 2:10 PM EST Office Visit Gastroenterology - [place] [facility] [address] [facility] [address] [place] [id number] Toñito Pride MD [address] [facility] [address] [place] [address] Generalized abdominal pain (Primary Dx); Gastroesophageal reflux disease with esophagitis, unspecified whether hemorrhage; 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 Do not crush or chew. 30 each 05/20/2024 05/20/2025 documented in this encounter Progress Notes * Toñito Pride MD - 05/20/2024 2:10 PM EST CONSULT REQUEST CHIEF COMPLAINT: Follow-up (imaging) HPI: Nicci Boggs is a 79 y.o. old female who was referred to us by Ruma Bravo,* presents to the gastroenterology department today for evaluation of abdominal pain. This was a follow-up visit for a 79-year-old woman with a history of periumbilical abdominal pain. She has been complaining of this discomfort since last December. The patient was seen in the clinic recently, and we had ordered an abdominal ultrasound initially. The results of the ultrasound did not show anything pathologic or abnormal to suggest the source of discomfort. As was stated previously, the pain does not change with foods, bowel movements. It does not seem to be affected with digestivefunctions. The patient did have a history of a large colonic mass in the ascending colon, a tubulovillous adenoma that could not be removed by a community saddle lining stitcher in [facility] in 2021. The patient was subsequently referred to Dr. Jag Loyola who completed a right hemicolectomy. The patient told me that following the surgery she had developed incisional infection requiring hospitalization and surgical assessment and treatments. She did bring me a copy of her EGD during the same time, this was significant for endoscopic evidence of Mejias's esophagus. The patient has not had a follow-up of EGD since 2021. She does take daily PPI, but still having reflux episodes. ROS: Review of Systems Gastrointestinal: Positive for abdominal pain, anal bleeding, blood in stool and constipation. All other systems reviewed and are negative. PAST MEDICAL HISTORY: has a past medical history of Abdominal discomfort in left lower quadrant, Anxiety (09/12/2021), Chronic pain syndrome, Colonic mass (09/12/2021), Dental abscess, Diverticulosis, Erosive esophagitis (09/12/2021), Fibromyalgia (09/12/2021), GERD (gastroesophageal reflux disease), Hemorrhoid prolapse (), Hemorrhoids (09/12/2021), Hiatal hernia (09/12/2021), History of basal cell cancer (09/12/2021), History of COVID-19 (09/12/2021), Hypothyroid (09/12/2021), LBBB (left bundle branch block), Osteoarthritis (09/12/2021), Osteoarthritis (09/12/2021), Osteoporosis, Pill dysphagia, Rectal bleeding, Rectal pain, and Tubulovillous adenoma. She has no past medical history of Asthma, Bronchitis, Cerebrovascular disease, Chronic ischemic heart disease, Diabetes mellitus type 2, controlled, with complications (CMS/HCC), Essential hypertension, Hyperlipidemia, Irritable bowel syndrome, Malignant neoplasm of colon (CMS/HCC), Malignant neoplasm of female breast (CMS/HCC), or Neoplasm of uncertain behavior of prostate. PAST SURGICAL HISTORY: has a past surgical history that includes Appendectomy; Other surgical history; Tonsillectomy; Colonoscopy; Other surgical history; Colonoscopy (08/05/2021); Esophagogastroduodenoscopy (08/05/2021); and Other surgical history (Right, 01/30/2022). SOCIAL HISTORY: reports that she has never smoked. She has never used smokeless tobacco. She reports that she does not drink alcohol and does not use drugs. FAMILY HISTORY: family history includes Bladder Cancer in her father; Colon polyps (age of onset: 41.00) in her daughter; Depression in her brother and sister; Ovarian cancer in her mother. MEDICATIONS: Home Medications ibandronate (BONIVA) 150 mg tablet Take 1 tablet (150 mg total) by mouth every 30 (thirty) days. Take in morning with full glass of water on an empty stomach. No food, drink, meds, or lying down for 60 minutes after. lisinopriL (PRINIVIL,ZESTRIL) 5 mg tablet Take 1 Tablet by mouth daily. omeprazole (PriLOSEC) [address] capsule Take 1 Capsule by mouth daily. Take in am on empty stomach, wait 30 mins and then eat to activate the medication omeprazole (PriLOSEC) [address] capsule Take 1 capsule (40 mg total) by mouth 1 (one) time each day.Do not crush or chew. ALLERGIES: Allergies Allergen Reactions Adhesive Amoxicillin Hives Amoxicillin-Pot Clavulanate Aspirin Atenolol Cefprozil Cephalexin Chicken Derived Clarithromycin Hives Clindamycin Clindamycin Phosphate Codeine Spade Cyclobenzaprine Doxycycline Egg Erythromycin Fentanyl Ibuprofen Iodinated Contrast Media Latex Levofloxacin Lidocaine Metoprolol Mold Nut - Unspecified Other Rash Megavite Fruits Penicillins Pork Derived (Porcine) Pregabalin Shellfish Containing Products Soy Sulfa (Sulfonamide Antibiotics) Sulfamethoxazole-Trimethoprim Tetracycline Wheat Zoledronic Acid PHYSICAL EXAM: Visit Vitals BP 124/67 Pulse 104 Ht 1.499 m (59 ) Wt 48.1 kg (106 lb) SpO2 97% BMI 21.41 kg/m?? Smoking Status Never BSA 1.41 m?? Physical Exam Constitutional: Appearance: Normal appearance. She is normal weight. HENT: Head: Normocephalic. Nose: Nose normal. Mouth/Throat: Mouth: Mucous membranes are moist. Pharynx: Oropharynx is clear. Eyes: Extraocular Movements: Extraocular movements intact. Conjunctiva/sclera: Conjunctivae normal. Pupils: Pupils are equal, round, and reactive to light. Cardiovascular: Rate and Rhythm: Normal rate and regular rhythm. Pulses: Normal pulses. Pulmonary: Effort: Pulmonary effort is normal. Abdominal: General: Abdomen is flat. Bowel sounds are normal. Palpations: Abdomen is soft. Tenderness: There is abdominal tenderness (The patient is exquisitely tender on minimal palpation of the abdominal wall). Musculoskeletal: General: Normal range of motion. Cervical back: Normal range of motion. Skin: General: Skin is warm. Neurological: General: No focal deficit present. Mental Status: She is alert and oriented to person, place, and time. Mental status is at baseline. Psychiatric: Mood and Affect: Mood normal. Behavior: Behavior normal. Thought Content: Thought content normal. Judgment: Judgment normal. LABS: No results found for: WBC , HGB , HCT , MCV , PLT and No results found for: NA , K , CL , CO2 , GLUCOSE , BUN , CREATININE , CALCIUM , PROT , ALBUMIN , BILITOT , AST , ALT , URICACID , PHOS , MG , ALKPHOS , CKTOTAL , EGFR IMAGING: Abdominal U/S: Results for orders placed during the hospital encounter of 04/06/24 US Abdomen Complete Narrative EXAMINATION: ABDOMEN ULTRASOUND CLINICAL INFORMATION: Abdomen pain [...] intraperitoneal fluid demonstrated in the upper abdomen Impression No etiology for pain demonstrated. Specifically no cholelithiasis or biliary dilation. -------- FINAL REPORT -------- Dictated By: Adi Keen Dictated Date: 04/06/2024 10:30 ET Assigned Physician: Adi Keen Reviewed and Electronically Signed By: Adi Keen Signed Date: 04/06/2024 10:35 ET Workstation ID: [id number] Transcribed By: Self Edit Transcribed Date: 04/06/2024 10:30 ET No results found for this or any previous visit. IMPRESSION: 1. Generalized abdominal pain 2. Gastroesophageal reflux disease with esophagitis, unspecified whether hemorrhage 3. 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 History of right hemicolectomy 5. Abdominal wall pain 6. Tubulovillous adenoma PLAN: On exam, it appears that the patient's pain may be coming from the abdominal wall itself. The abdominal ultrasound did not show any type of layering of fluids or other collection in the abdominal wall. Meanwhile, internal organs also appears to be within normal limits. However, when I pushed even gently, the patient feels excruciating discomfort. Therefore, I suspect the patient may benefit from analgesic anti-inflammatory therapy or topical application of ointment such as diclofenac ointment etc. On examination, she also was found to be bloated, I will check a KUB to assess the stool burden. Inaddition, she does have evidence of acid reflux disease with Mejias's esophagus according to EGD in 2021. She will need a repeat EGD in . She has a history of a tubulovillous adenoma requiring right hemicolectomy in . We will schedule her colonoscopy TRISTA with EGD to be done during the same setting. I did advise the patient to use ibuprofen 400 mg 3 times daily with topical Voltaren ointment to beapplied to the area of discomfort in the midportion of the abdomen. If this fails to improve the patient's condition then pain management may be considered by primary care physician. I would like to thank Ruma Bravo * for the opportunity to partake in the patient's care. Orders Placed This Encounter Procedures XR Abdomen 1 View XR ABDOMEN 1 VIEW Signatures Toñito Pride MD Board Certified, Gastroenterology and Internal Medicine Gastroenterology and Hepatology Practice [facility] [email or web address] [phone] [place] [address] [email or web address] cc: Ruma Bravo *, Ruma Bravo MD documented in this encounter Plan of Treatment Scheduled Orders Name Type Priority Associated Diagnoses Orde r Schedule XR Abdomen 1 View Imaging Routine Gastroesophageal reflux disease with esophagitis, unspecified whether hemorrhage Generalized abdominal pain Expected: 05/20/2024, Expires: 05/20/2025 documented as of this encounter Visit Diagnoses Diagnosis Generalized abdominal pain- Primary Abdominal pain, generalized Gastroesophageal reflux disease with esophagitis, unspecified whether hemorrhage 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 Medication Sig Dispensed Refills Start Date End Date ibandronate (BONIVA) 150 mg tablet Take 1 tablet (150 mg total) by mouth every 30 (thirty) days. Take in morning with full glass of water on an empty stomach. No food, drink, meds, or lying down for 60 minutes after. added in this encounter Care Teams Monotype Caster Relationship Specialty Start Date End Date Ruma Bravo LCSW [id number] [id number] PCP - General 04/06/24 05/20/24 documented as of this encounter
--- OUTSIDE RECORDS SUMMARY | 2024-06-07 09:07 | XMS_ITS | Data Portability ---
Author Organization [facility], , [facility] Address [address] [place] [address] Assessment No assessment recorded. Plan of Treatment Reminders Order Date Submit Date Provider Last Modified By Organization Details Last Modified Time Details Appointments None record ed. Lab erythr ocyte sedime ntatio n rate by kadi reza 2018 019 [facility], [address] [place] [address], [address], 9 13:52:42 C-reac tive protei n, quanti tative , serum or plasma 2018 019 [facility], [address] [place] [address], [id number], 9 17:45:20 Referral physic al therap ist referr al - 73 y/o with hx fibrom yalgia and osteop orosis now with worsen ing pain and tightn ess in the neck, please assess and treat [facility] [address] [place], [address], 9 13:11:23 allerg y referr al - mult abx allerg ies 2018 019 [email or web address] Paxton Calderon, [address] [place], [address], 9 15:05:22 Procedures None record ed. Surgeries None record ed. Imaging XR, neck - 73 y/o with hx fibrom yalgia and osteop orosis now with worsen ing pain and tightn ess in the neck, please r/o bony abnorm ality 2018 [facility] [address], [place], [address], 9 10:40:07 XR, amberlyic al spine 2018 [facility]), [address] [place], [address], 9 11:45:36 Medication Orders Luci tin 875 mg-125 mg tablet 2018 [email or web address] Not available 9 10:30:27 EpiPen 0.3 mg/0.3 mL inject ion, auto-i njecto r 2018 [id number], [address] [place], [address], 9 10:45:28 Patient TargetsNo targets recorded. Patient Instructions Encounter Date Encounter Id Patient Instructions Last Modified By Organization Details Last Modified Time 10/25/2018 [id number] -Keep hydrated -Keep inside with the air conditioning filter -Give this a bit more time - if still having symptoms on Thursday would recommend taking the augmentin at that point in time Not available 10/25/2018 12:15:43 11/22/2018 [id number] -Consider a tria l of D-ribose powder (up to 3 scoops daily) to help with fibromyalgia symptoms -Labwork today -X-ray today -Make appointment for physical therapy of the neck -Plan on wellness visit in 2 months Not available 11/22/2018 10:49:05 01/13/2019 [id number] -STOP amoxicilli n - think this rash is due to that -Talk to the used car salesperson -When you see Dr. Calderon, please ask him if challenging for keflex is reasonable or if that should wait -Please ask him to review your allergies given that you reacted to the amoxicillin -I would recheck they thyroid twice yearly to keep tabs on it. -Recommend alternating ice and heat -Can use topical lidocaine if needed -If not improving over the next week or so and you want to do PT - just let me know and I can refer you (let me know where you want to go) Not available 01/13/2019 09:42:22 02/28/2019 [id number] After a discussion of treatment options, which included consideration of best practices, patient preferences, and the patient? s individual lifestyle and treatment goals, as well as consideration and attempted mitigation of any barriers to meeting the patient? s goals, the above treatment plan and objectives were adopted. [email or web address] Not available 02/28/2019 13:49:33 Reason for Referral Physical Therapist Referral for Neck pain 73 y/o with hx fibromyalgia and osteoporosis now with worsening pain and tightness in the neck, please assess and treat Referring Physician: Nguyen Quesada, Family Medicine, Encounter Date: 11/22/2018 Allergy Referral for Allergy mult abx allergies Referring Physician: Lexi Hernández, Family Medicine, Encounter Date: 02/28/2019 Results Created Date Observation Date Name Description Value Unit Range Abnormal Flag Note LastModifiedBy Organization Detail LastModifiedTime 11/25/19 19 11/24/2018 eryth rocyt e sedim entat ion rate by adeline velazquez metho d sed rate 4.0 0.0-15 .0 Not Available [address], [address], 11/24/2018 13:52:42 11/25/1911/24/2018 gluco se, QN [mass /volu me], serum or plasm a glucose 78 mg/dL 70-100 Not Available [address], [address], 11/24/2018 15:11:40 11/25/19 19 11/24/2018 C-jose luis ctive prote in, quant itati ve, serum or plasm a C-reactive protein -quant <2.0 mg/L 0.0-9. 0 < Not Available [address], [address], 11/24/2018 17:45:20 12/31/19 19 12/31/2018 T4, free, serum free T4 0.98 NG/dL 0.75-1 .54 Not Available [address], [address], 12/31/2018 11:06:45 12/31/19 19 12/31/2018 TSH, serum or plasm a TSH 4.02 uIU/m L 0.50-6 .00 The Ameri can Colle ge of Endoc rinol ogy and Ameri can Thyro id Assoc iatio n recom mend goal TSH value s betwe en 0.4-4 .0 mIU/m L. Not Available [address], [address], 12/31/2018 11:06:45 01/25/20 19 01/24/2019 refer ence lab test panel tests requested PROSTA GLANDI N D2,F2 (RANDO M URINE) (FPD24 ) Not Available [facility] [address] [place] [address], [address], 01/24/2019 11:18:12 01/25/20 19 01/24/2019 refer ence lab test panel specimen/tub e type URINE Not Available [facility]) [address] [place] [address], [address], 01/24/2019 11:18:12 01/25/20 19 01/24/2019 refer ence lab test panel request received Reque st recei saad. A separ ate order for the reque sted test will be gener ated by the labor atory . Not Available [facility] [address] [place] [address], [address], 01/24/2019 11:18:12 01/25/20 19 01/24/2019 CBC w/ auto diff WBC 4.35 K/uL 3.40-1 1.20 Not Available [facility] [address] [place] [address], [address], 01/24/2019 13:45:18 01/25/20 19 01/24/2019 CBC w/ auto diff RBC 5.29 M/uL 3.80-4 .80 high Not Available [facility]) [address] [place], [address], 01/24/2019 13:45:18 01/25/20 19 01/24/2019 CBC w/ auto diff HGB 15.1 g/dL 12.0-1 5.0 high Not Available [facility] [address] [place], [address], 01/24/2019 13:45:18 01/25/20 19 01/24/2019 CBC w/ auto diff HCT 44.8 % 36.0-4 6.0 Not Available [facility] [address] [place], [address], 01/24/2019 13:45:18 01/25/20 19 01/24/2019 CBC w/ auto diff plt 231 K/uL 130-40 0 Not Available [facility] [address] [place], [address], 01/24/2019 13:45:18 01/25/20 19 01/24/2019 CBC w/ auto diff MCV 84.7 fL 79.0-9 8.0 Not Available [facility] [address] [place], [address], 01/24/2019 13:45:18 01/25/2001/24/2019 CBC w/ auto diff MCH 28.5 pg 27.0-3 4.8 Not Available [facility] [address] [place], [address], 01/24/2019 13:45:18 01/25/2001/24/2019 CBC w/ auto diff MCHC 33.7 g/dL 31.5-3 6.0 Not Available [facility] [address] [place], [address], 01/24/2019 13:45:18 01/25/20 19 01/24/2019 CBC w/ auto diff RDW 13.3 % 10.8-1 4.6 Not Available [facility] [address] [place], [address], 01/24/2019 13:45:18 01/25/20 19 01/24/2019 CBC w/ auto diff MPV 11.8 fL 9.4-12 .4 Not Available [facility] [address] [place], [address], 01/24/2019 13:45:18 01/25/20 19 01/24/2019 CBC w/ auto diff NRBC 0.00 /100_ WBCs 0.00 Not Available [facility] [address] [place], [address], 01/24/2019 13:45:18 01/25/20 19 01/24/2019 CBC w/ auto diff absolute NRBC 0.00 K/uL 0.00 Not Available [facility] [address] [place], [address], 01/24/2019 13:45:18 01/25/20 19 01/24/2019 CBC w/ auto diff diff method Auto Not Available [facility] [address] [place], [address], 01/24/2019 13:45:18 01/25/20 19 01/24/2019 CBC w/ auto diff neuts 57.8 % 45.30- 77.70 Not Available [facility] [address] [place], [address], 01/24/2019 13:45:18 01/25/20 19 01/24/2019 CBC w/ auto diff lymphs 29.4 % 12.30- 39.70 Not Available [facility] [address] [place], [address], 01/24/2019 13:45:18 01/25/20 19 01/24/2019 CBC w/ auto diff monos 8.5 % 4.10-1 2.80 Not Available [facility] [address] [place], [address], 01/24/2019 13:45:18 01/25/20 19 01/24/2019 CBC w/ auto diff eos 3.4 % 0-7.2 Not Available [facility] [address] [place], [address], 01/24/2019 13:45:18 01/25/20 19 01/24/2019 CBC w/ auto diff basos 0.7 % 0-2.80 Not Available [facility] [address] [place], [address], 01/24/2019 13:45:18 01/25/20 19 01/24/2019 CBC w/ auto diff granulocytes , immature (%) 0.2 % 0.0-0. 9 Not Available [facility] [address] [place], [address], 01/24/2019 13:45:18 01/25/20 19 01/24/2019 CBC w/ auto diff absolute neuts 2.51 K/uL 1.40-7 .70 Not Available [facility] [address] [place], [address], 01/24/2019 13:45:18 01/25/20 19 01/24/2019 CBC w/ auto diff absolute lymphs 1.28 K/uL 0.60-3 .20 Not Available [facility] [address] [place], [address], 01/24/2019 13:45:18 01/25/20 19 01/24/2019 CBC w/ auto diff absolute monos 0.37 K/uL 0.11-0 .59 Not Available [facility] [address] [place], [address], 01/24/2019 13:45:18 01/25/20 19 01/24/2019 CBC w/ auto diff absolute eos 0.15 K/uL 0.01-0 .50 Not Available [facility] [address] [place], [address], 01/24/2019 13:45:18 01/25/20 19 01/24/2019 CBC w/ auto diff absolute basos 0.03 K/uL 0.00-0 .08 Not Available [facility] [address] [place], [address], 01/24/2019 13:45:18 01/25/20 19 01/24/2019 CBC w/ auto diff granulocytes , immature 0.01 K/uL 0.00-0 .05 Not Available [facility] [address] [place], [address], 01/24/2019 13:45:18 01/25/20 19 01/24/2019 CMP, serum or plasm a sodium 140 mmol/ L 133-14 6 Not Available [facility] [address] [place], [address], 01/24/2019 14:14:31 01/25/20 19 01/24/2019 CMP, serum or plasm a potassium 4.0 mmol/ L 3.3-5. 1 Not Available [facility] [address] [place], [address], 01/24/2019 14:14:31 01/25/20 19 01/24/2019 CMP, serum or plasm a chloride 103 mmol/ L 96-108 Not Available [facility] [address] [place], [address], 01/24/2019 14:14:31 01/25/20 19 01/24/2019 CMP, serum or plasm a CO2 24 mmol/ L 21-35 Not Available [facility] [address] [place], [address], 01/24/2019 14:14:31 01/25/20 19 01/24/2019 CMP, serum or plasm a BUN 13 mg/dL 6-19 Not Available [facility] [address] [place], [address], 01/24/2019 14:14:31 01/25/20 19 01/24/2019 CMP, serum or plasm a creatinine 0.60 mg/dL 0.5-1. 5 Not Available [facility] [address] [place], [address], 01/24/2019 14:14:31 01/25/20 19 01/24/2019 CMP, serum or plasm a glucose 91 mg/dL 70-99 Not Available [facility] [address] [place], [address], 01/24/2019 14:14:31 01/25/20 19 01/24/2019 CMP, serum or plasm a albumin 4.3 g/dL 3.9-4. 8 Not Available [facility] [address] [place], [address], 01/24/2019 14:14:31 01/25/20 19 01/24/2019 CMP, serum or plasm a total protein 7.2 g/dL 6.5-8. 0 Not Available [facility] [address] [place], [address], 01/24/2019 14:14:31 01/25/20 19 01/24/2019 CMP, serum or plasm a calcium 9.5 mg/dL 8.4-10 .3 Not Available [facility] [address] [place], [address], 01/24/2019 14:14:31 01/25/20 19 01/24/2019 CMP, serum or plasm a alkaline phosphatase 58 U/L 39-117 Not Available [facility] ([facility]) [address] [place], [address], 01/24/2019 14:14:31 01/25/20 19 01/24/2019 CMP, serum or plasm a total bilirubin 0.5 mg/dL 0.0-1. 2 Not Available [facility] ([facility] [address] [place], [address], 01/24/2019 14:14:31 01/25/20 19 01/24/2019 CMP, serum or plasm a AST 23 U/L 0-37 Not Available [facility] [address] [place], [address], 01/24/2019 14:14:31 01/25/20 19 01/24/2019 CMP, serum or plasm a ALT 10 U/L 0-40 Not Available [facility] [address] [place], [address], 01/24/2019 14:14:31 01/25/20 19 01/24/2019 CMP, serum or plasm a globulin 2.9 g/dL 1-4.8 Not Available [facility] [address] [place], [address], 01/24/2019 14:14:31 01/25/20 19 01/24/2019 CMP, serum or plasm a eGFR 92 mL/mi n/1.7 3m2 >59 If patie nt is black , multi ply resul t by 1.159 . Estim ated glome rular filtr ation rate calcu lated using the CKD-E PI equat ion. Not Available [facility] [address] [place], [address], 01/24/2019 14:14:31 01/25/20 19 01/24/2019 CMP, serum or plasm a anion gap 17 mmol/ L 10-20 Not Available [facility] [address] [place], [address], 01/24/2019 14:14:31 01/25/20 19 2019 trypt ase, serum tryptase 3.7 NG/mL <11.5 Not Available [facility] [address] [place], [address], 2019 19:22:10 01/25/20 19 01/28/2019 N-met hylhi stami ne, 24 HR urine N-methylhist amine/cre, timed urine 116 mcg/g _cr 30-200 Not Available [facility] [address] [place], [address], 01/28/2019 15:56:55 01/25/20 19 01/28/2019 N-met hylhi stami ne, 24 HR urine collection duration, urine 24 H Not Available [facility] [address] [place], [address], 01/28/2019 15:56:55 01/25/2001/28/2019 N-met hylhi stami ne, 24 HR urine total volume, ur 1875 mL (NOTE ) ----- ----- ----- ----A SHAHZADITI ONMILAGROS INFOR SUSI N---- ----- ----- ----- This test was devel yfned and its perfo rmanc e dania cteri stics deter mined by Grethel Alejandra canas in a sheridan r consi stent with BARB pedroza. This test has not been clear ed or appro saad by the U.[place]. Food and Drug Admin istra tion. Not Available [facility] [address] [place], [address], 01/28/2019 15:56:55 01/25/2001/28/2019 N-met hylhi stami ne, 24 HR urine creatinine, timed ur (mg/dL) 34 mg/dL Not Available [facility] [address] [place], [address], 01/28/2019 15:56:55 04/24/20 19 04/24/2019 CBC w/ auto diff WBC 6.58 K/uL 3.40-1 1.20 Not Available [facility] [address] [place], [address], 04/24/2019 10:44:54 04/24/20 19 04/24/2019 CBC w/ auto diff RBC 5.43 M/uL 3.80-4 .80 high Not Available [facility] [address] [place], [address], 04/24/2019 10:44:54 04/24/20 19 04/24/2019 CBC w/ auto diff HGB 15.7 g/dL 12.0-1 5.0 high Not Available [facility]) [address] [place] [address], [address], 04/24/2019 10:44:54 04/24/20 19 04/24/2019 CBC w/ auto diff HCT 46.6 % 36.0-4 6.0 high Not Available [facility]) [address] [place] [address], [address], 04/24/2019 10:44:54 04/24/20 19 04/24/2019 CBC w/ auto diff plt 256 K/uL 130-40 0 Not Available [facility] [address] [place], [address], 04/24/2019 10:44:54 04/24/20 19 04/24/2019 CBC w/ auto diff MCV 85.8 fL 79.0-9 8.0 Not Available [facility]) [address] [place] [address], [address], 04/24/2019 10:44:54 04/24/20 19 04/24/2019 CBC w/ auto diff MCH 28.9 pg 27.0-3 4.8 Not Available [facility] [address] [place], [address], 04/24/2019 10:44:54 04/24/20 19 04/24/2019 CBC w/ auto diff MCHC 33.7 g/dL 31.5-3 6.0 Not Available [facility] [address] [place], [address], 04/24/2019 10:44:54 04/24/20 19 04/24/2019 CBC w/ auto diff RDW 13.6 % 10.8-1 4.6 Not Available [facility] [address] [place], [address], 04/24/2019 10:44:54 04/24/20 19 04/24/2019 CBC w/ auto diff MPV 11.3 fL 9.4-12 .4 Not Available [facility] [address] [place], [address], 04/24/2019 10:44:54 04/24/20 19 04/24/2019 CBC w/ auto diff NRBC 0.00 /100_ WBCs 0.00 Not Available [facility] [address] [place], [address], 04/24/2019 10:44:54 04/24/20 19 04/24/2019 CBC w/ auto diff absolute NRBC 0.00 K/uL 0.00 Not Available [facility] [address] [place], [address], 04/24/2019 10:44:54 04/24/20 19 04/24/2019 CBC w/ auto diff diff method Auto Not Available [facility] [address] [place], [address], 04/24/2019 10:44:54 04/24/20 19 04/24/2019 CBC w/ auto diff neuts 74.4 % 45.30- 77.70 Not Available [facility] [address] [place], [address], 04/24/2019 10:44:54 04/24/20 19 04/24/2019 CBC w/ auto diff lymphs 15.7 % 12.30- 39.70 Not Available [facility] [address] [place], [address], 04/24/2019 10:44:54 04/24/20 19 04/24/2019 CBC w/ auto diff monos 7.9 % 4.10-1 2.80 Not Available [facility] [address] [place] [address], [address], 04/24/2019 10:44:54 04/24/20 19 04/24/2019 CBC w/ auto diff eos 1.1 % 0-7.2 Not Available [facility] [address] [place] [address], [address], 04/24/2019 10:44:54 04/24/20 19 04/24/2019 CBC w/ auto diff basos 0.6 % 0-2.80 Not Available [facility] [address] [place] [address], [address], 04/24/2019 10:44:54 04/24/20 19 04/24/2019 CBC w/ auto diff granulocytes , immature (%) 0.3 % 0.0-0. 9 Not Available [facility]) [address] [place] [address], [address], 04/24/2019 10:44:54 04/24/20 19 04/24/2019 CBC w/ auto diff absolute neuts 4.90 K/uL 1.40-7 .70 Not Available [facility] [address] [place] [address], [address], 04/24/2019 10:44:54 04/24/20 19 04/24/2019 CBC w/ auto diff absolute lymphs 1.03 K/uL 0.60-3 .20 Not Available [facility] [address] [place], [address], 04/24/2019 10:44:54 04/24/20 19 04/24/2019 CBC w/ auto diff absolute monos 0.52 K/uL 0.11-0 .59 Not Available [facility] ([facility] [address] [place], [address], 04/24/2019 10:44:54 04/24/20 19 04/24/2019 CBC w/ auto diff absolute eos 0.07 K/uL 0.01-0 .50 Not Available [facility] ([facility]) [address] [place], [address], 04/24/2019 10:44:54 04/24/20 19 04/24/2019 CBC w/ auto diff absolute basos 0.04 K/uL 0.00-0 .08 Not Available [facility] ([facility]) [address] [place], [address], 04/24/2019 10:44:54 04/24/20 19 04/24/2019 CBC w/ auto diff granulocytes , immature 0.02 K/uL 0.00-0 .05 Not Available [facility] [address] [place], [address], 04/24/2019 10:44:54 04/24/20 19 04/24/2019 PT/IN R PT 11.1 sec 10.2-1 2.9 Not Available [facility] [address] [place], [address], 04/24/2019 10:53:55 04/24/20 19 04/24/2019 PT/IN R INR 1.0 0.9-1. 1 Thera peuti c range for oral Vitam in K antag onist s: 2.0-3 .5 Not Available [facility] [address] [place], [address], 04/24/2019 10:53:55 04/24/20 19 04/24/2019 BMP, blood sodium 140 mmol/ L 133-14 6 Not Available [facility] [address] [place], [address], 04/24/2019 10:54:46 04/24/20 19 04/24/2019 BMP, blood chloride 102 mmol/ L 96-108 Not Available [facility] [address] [place], [address], 04/24/2019 10:54:46 04/24/20 19 04/24/2019 BMP, blood potassium 5.1 mmol/ L 3.3-5. 1 Not Available [facility] [address] [place], [address], 04/24/2019 10:54:46 04/24/20 19 04/24/2019 BMP, blood CO2 26 mmol/ L 21-35 Not Available [facility] [address] [place], [address], 04/24/2019 10:54:46 04/24/20 19 04/24/2019 BMP, blood BUN 15 mg/dL 6-19 Not Available [facility] [address] [place], [address], 04/24/2019 10:54:46 04/24/20 19 04/24/2019 BMP, blood creatinine 0.60 mg/dL 0.5-1. 5 Not Available [facility] [address] [place], [address], 04/24/2019 10:54:46 04/24/20 19 04/24/2019 BMP, blood glucose 105 mg/dL 70-99 high Not Available [facility] [address] [place], [address], 04/24/2019 10:54:46 04/24/20 19 04/24/2019 BMP, blood calcium 10.1 mg/dL 8.4-10 .3 Not Available [facility]) [address] [place] [address], [address], 04/24/2019 10:54:46 04/24/20 19 04/24/2019 BMP, blood eGFR 91 mL/mi n/1.7 3m2 >59 If patie nt is black , multi ply resul t by 1.159 . Estim ated glome rular filtr ation rate calcu lated using the CKD-E PI equat ion. Not Available [facility] ([facility] [address] [place], [address], 04/24/2019 10:54:46 04/24/20 19 04/24/2019 BMP, blood anion gap 17 mmol/ L 10-20 Not Available [facility]) [address] [place] [address], [address], 04/24/2019 10:54:46 04/24/20 19 04/24/2019 C-jose luis ctive prote in, quant itati ve, serum or plasm a C reactive protein 0.7 mg/L 0.0-4. 0 Not Available [facility] [address] [place], [address], 04/24/2019 10:54:47 04/24/20 19 04/24/2019 lfts (hepa tic panel ) alkaline phosphatase 87 U/L 39-117 Not Available [facility] ([facility]) [address] [place], [address], 04/24/2019 10:54:48 04/24/20 19 04/24/2019 lfts (hepa tic panel ) total bilirubin 0.5 mg/dL 0.0-1. 2 Not Available [facility]) [address] [place] [address], [address], 04/24/2019 10:54:48 04/24/20 19 04/24/2019 lfts (hepa tic panel ) direct bilirubin <0.2 mg/dL 0-0.3 Not Available [facility] [address] [place], [address], 04/24/2019 10:54:48 04/24/20 19 04/24/2019 lfts (hepa tic panel ) bilirubin (indirect) NOT CALCUL ATED mg/dL 0-1.5 Not Available [facility]) [address] [place], [address], 04/24/2019 10:54:48 04/24/20 19 04/24/2019 lfts (hepa tic panel ) AST 18 U/L 0-37 Not Available [facility] (Outpatient) [address] [place], [address], 04/24/2019 10:54:48 04/24/20 19 04/24/2019 lfts (hepa tic panel ) ALT 10 U/L 0-40 Not Available [facility] (Outpatient) [address] [place], [address], 04/24/2019 10:54:48 04/24/20 19 04/24/2019 lfts (hepa tic panel ) total protein 7.7 g/dL 6.5-8. 0 Not Available [facility] (Outpatient) [address] [place], [address], 04/24/2019 10:54:48 04/24/20 19 04/24/2019 lfts (hepa tic panel ) albumin 4.5 g/dL 3.9-4. 8 Not Available [facility] (Outpatient) [address] [place], [address], 04/24/2019 10:54:48 04/24/20 19 04/24/2019 lfts (hepa tic panel ) globulin 3.2 g/dL 1-4.8 Not Available [facility] (Outpatient) [address] [place], [address], 04/24/2019 10:54:48 04/24/20 19 04/24/2019 lfts (hepa tic panel ) A/G ratio 1.41 ratio 1.00-4 .80 Not Available [facility] (Outpatient) [address] [place], [address], 04/24/2019 10:54:48 04/24/20 19 04/24/2019 eryth rocyt e sedim entat ion rate by weste rgren metho d ESR 7 mm/h 0-30 Not Available [facility] (Outpatient) [address] [place], [address], 04/24/2019 11:22:07 07/27/19 20 07/27/2019 vitam in B12, serum vitamin B12 291 pg/mL 232-12 45 Not Available [facility] (Outpatient) [address] [place], [address], 07/27/2019 11:04:46 07/27/19 20 07/27/2019 eryth rocyt e sedim entat ion rate by weste rgren metho d ESR 10 mm/h 0-30 Not Available [facility] (Outpatient) [address] [place], [address], 07/27/2019 11:29:10 11/25/19 19 11/24/2018 XR, neck OBSERV ATION: EXAM: Cervic al spine, 5 views Compar ed to 16 2017. Histor y: Fibrom yalgia and osteop orosis with worsen ing neck pain and tightn ess. The verteb ral bodies remain well aligne d other than about 2 mm of gilmar listhe sis of C6 on C7 which is unchan ged since 2017. Disc height s are reason ably well-m aintai nanda. Uncina te hypert rophy produc es severe left and modera te right C4 forami nal stenos is. No other signif icant forami nal narrow ing is appare nt. Diffus e facet arthro jean bilate rally is unchan ged. No eviden ce of metast atic diseas e, trauma or cervic al ribs. IMPRES XOCHITL: progre ssive bilate ral C4 forami nal stenos is but otherw ise stable facet arthro jean and minor degene rative change s. No acute bony findin gs or eviden ce of malign carol. POS: VMG Electr onical ly signed Readin g Physic shane: Samuel martini MD [facility] (Imaging) [address] , [place], [address], 11/25/2018 11:24:03 04/24/20 19 04/24/2019 CT, head, w/o contr ast EXAM: CT HEAD WITHOU T CONTRA ST Unenha nced CT Scan of the Brain COMPAR EZEKIEL: Brain MRI on October 13, 2013. TECHNI QUE: Nonenh anced head CT from skull base to vertex . Kam l and sagitt al recons tructi ons were create d. Manual dose reduct ion techni que tailor ed for patien t and site of imagin g INDICA TION: * HEADAC HE, ACUTE, SEVERE , THUNDE RCLAP, WORST TOMPKINS OF LIFE FINDIN GS: Ventri cles, Sulci and extra axial spaces : The ventri cles, sulci and cister ns are patent and symmet anai withou t hydroc ephalo us. Brain Parenc hyma: No acute hemorr brian or large vascul ar territ ory infarc t is seen. No mass, midlin e shift or vasoge rafa edema. Streeter white differ entiat ion is preser saad. Vascul ar: Unrema rkable . Skull Base: Sellar /roxanne ellar struct ures, pineal gland region and cranio verteb ral juncti on are within normal limits . Orbits : The orbits are unrema rkable . Parana diana sinuse s: Near comple te opacif icatio n of the left spheno id sinus by hyperd ense conten t that may repres ent inspis sated secret ion. Remain ing parana diana sinuse s and mastoi d air cells are clear. Bones and soft tissue s: The calvar ium is intact . Soft tissue s are unrema rkable . IMPRES XOCHITL: No acute intrac ranial abnorm ality. TOTAL CTDIvo l: 58.4 mGy POS - CDHRAD BOARD0 7 Electr onical ly Signed by: ALIDA Bauer on 2018 11:04 AM Interp reted by: Alida bauer MD Signed by: Alida bauer MD CC Recipi ents: Nguyen langford MD - Fax Final result NGUYEN LANGFORD [address] [facility] [address] [place] [address], [address], 04/25/2019 08:25:57 04/24/20 19 04/24/2019 CT, head, w/o contr ast No observ ation record ed. [address], [address], 04/25/2019 08:25:57 04/26/2004/26/2019 XR, cervi jennifer spine OBSERV ATION: EXAM: Radiog raphs of the cervic al spine, 5 views HISTOR Y: Neck pain. No trauma . COMPAR EZEKIEL: November 24, 2018 FINDIN GS: Exagge rated cervic al lordos is. Chroni c mild gilmar listhe sis of C6 on C7. Minima l gilmar listhe sis of C5 on C6 appear s progre ssed from November 2018. Verteb ral body height s are relati vely mainta ined. Disc spaces are preser saad. Prever tebral soft tissue s are unrema rkable . Odonto id proces s appear s intact . Mild neurof oramin al stenos is bilate rally at C2-C3. IMPRES XOCHITL: Exagge rated cervic al lordos is. Chroni c gilmar listhe sis of C6 on C7. Minima l interv al progre ssion of gilmar listhe sis of C5 on C6. POS- VMG Electr onical ly signed Readin loreto Physic shane: Alida bauer [email or web address] [facility] (Imaging) [address], [place], [address], 04/28/2019 12:10:47 04/26/08/27/2020 XR, wrist , 3 or more view No observ ation record ed. [address] [facility] [address] [place], [address], 08/27/2020 17:05:13 08/28/19 21 08/27/2020 XR, finge r(s), 2 or more view No observ ation record ed. [address] [facility] [address] [place], [address], 08/27/2020 17:05:13 05/14/19 22 06/15/2018 bi mammo gram outsi de (no inter preta tion) This study is for PACS storag e only and not for interp retati on. Final result NGUYEN LANGFORD [address] [facility] [address] [place] [address], [address], 05/14/2021 12:47:38 05/14/19 22 06/15/2018 bi US breas t outsi de (no inter preta tion) This study is for PACS storag e only and not for interp retati on. Final result NGUYEN LANGFORD [address] [facility] [address] [place] [address], [address], 05/14/2021 12:47:38 Result Notes None recorded. Problems Name Problem SNOMED Code Status Onset Date Resolution Date Notes Provider Name and Address Organization Details Recorded Time Abdomina l pain 31437100 [place], [address], [facility] 13:39:01 Tooth disorder 480589617 Completed 06/20/2014 [place], [address], [facility] 6 13:39:00 Unable to balance 691088221 Completed 06/20/2014 [place], [address], [facility] 6 13:39:00 Vertigo 839458318 Active Cyndy Yeager, FINA [address] [place], [place] [address], [place], [address], [facility] 6 13:39:00 Osteopor osis 52385076 Active Cyndy Yeager, FINA [address] [place], [place] [address], [place], [address], [facility] 6 13:39:00 Hyperlip idemia 19581103 Active Cyndy Yeager, FINA [address] [place], [place] [address], [address], [facility] 6 13:39:00 Left bundle branch hemibloc k 0747874 Active Cyndy Yeager NP [address] [place], [address], [facility] 13:39:00 Contusio n of multiple sites 915006500 Completed 11/21/2014 Cyndy Yeager NP [address] [place], [address], [facility] 6 13:39:01 Knee pain Active Cyndy Yeager NP [address] [place], [place] [address], [place], [address], [facility] 13:39:00 Cellulit is of lower limb 876045976 Completed 11/21/2014 Cyndy Yeager NP [address] [place], [place] [address], [place], [address], [facility] 13:39:00 Allergic reaction 397696728 Active multiple allergies with rash and intense itching to multiple meds, foods, etc Cyndy Yeager NP [address] [place], [address], [facility] 13:39:01 Fibromyo sitis 80364186 Active Cyndy Yeager NP [address] [place], [address], [facility] 6 15:19:01 Cellulit is 139800217 Active Cyndy Yeager NP [address] [place], [address], [facility] 6 13:39:00 Swelling of lower leg 388250204 Active Cyndy Yeager NP [address] [place], [place], [address], [facility] 6 13:46:18 Foot pain 35671259 Active Cyndy Yeager NP [address] [place], [place], [address], [facility] 6 15:19:01 Mixed hyperlip idemia 754191372 Completed 200706/20/2014 Cyndy Yeager NP [facility] [place], [address], [facility] 6 13:39:00 Presbyop ia 80959646 Completed 200506/20/2014 Cyndy Yeager NP [facility] [place], [place], [address], [facility] 6 13:39:00 Gastroes ophageal reflux disease 830531227 Active 2005 Cyndy Yeager NP [facility] [place], [place], [address], [facility] 6 13:39:00 Lateral epicondy litis 521587896 Completed 200603/23/2013 Cyndy Yeager NP [address] [place], [place], [address], [facility] 6 13:39:00 Sprain of ankle and/or foot 471143280 Completed 2009 Cyndy Yeager NP [address] [place], [address], [facility] 6 13:39:01 Anxiety state 118000597 Completed 200606/20/2014 removed per pt request Cyndy Yeager NP [address] [place], [address], [facility] 6 13:39:00 Allergic rhinitis 36011991 Active 2006 Cyndy Yeager NP [address] [place], [place], [address], [facility] 6 13:39:00 Acute pharyngi tis 764385633 Completed 03/23/2013 Cyndy Yeager NP [address] [place], [place], [address], [facility] 6 13:39:00 Left lower quadrant pain 839556978 Completed 03/23/2013 Cyndy Yeager NP [address] [place], [place], [address], [facility] 6 13:39:01 Dizzines s 382603311 Completed 03/23/2013 Cyndy Yeager NP [address] [place], [place], [address], [facility] 6 13:39:00 Sciatica 54538704 Active 2005 Cyndy Yeager NP [address] [place], [place], [address], [facility] 6 13:39:00 Blood coagulat ion disorder 06898433 Completed 200702/01/2009 Cyndy Yeager NP [address] [place], [place], [address], [facility] 6 13:39:00 Altered mental status 740855144 Completed 200501/25/2009 Cyndy Yeager NP [address], [place], [address], [facility] 6 13:39:00 Major depressi on, melancho lic type 881855503 Completed 200606/20/2014 removed per pt request Cyndy Yeager NP [address] [place], [place], [address], [facility] 6 13:39:00 Pain in throat 682156843 Completed 03/23/2013 FINA [place], [place], [address], [facility] 6 13:39:00 Pain in throat 839546083 Completed 200601/25/2009 Cyndy Yeager NP [address] [place], [address], [facility] 6 13:39:00 Acute maxillar y sinusiti s 87895082 Completed 200701/25/2009 Cyndy Yeager NP [address], [place], [address], [facility] 6 13:39:00 Generali zed abdomina l pain 659128053 Completed 200501/25/2009 Cyndy Yeager NP [address] [place], [place], [address], [facility] 13:39:01 Elevated blood-pr essure reading without diagnosi s of hyperten xochitl 629726760 Active Cyndy Yeager NP [address] [place], [place], [address], [facility] 13:39:01 Degenera tive joint disease involvin g multiple joints 024430128 Active 2005 Cyndy Yeager NP [address] [place], [place], [address], [facility] 6 13:39:00 Allergy Completed 200706/20/2014 Cyndy Yeager NP [address] [place], [place], [address], [facility] 6 13:39:01 Malaise and fatigue 531218267 Completed 200501/25/2009 Cyndy Yeager NP [address] [place], [address], [facility] 6 13:39:00 Malaise and fatigue 876513264 Completed 03/23/2013 Cyndy Yeager NP [address] [place], [address], [facility] 6 13:39:00 Cyst of ovary 93794177 Active Cyndy Yeager NP [address] [place], [address], [facility] 6 13:39:00 Headache 92245603 Completed 06/20/2014 Cyndy Yeager NP [address] [place], [place], [address], [facility] 6 13:39:01 Cough 34278082 Completed 03/23/2013 Cyndy Yeager NP [address] [place], [place], [address], [facility] 6 13:39:01 Cough 61476259 Completed 200601/25/2009 Cyndy Yeager NP [address] [place], [place], [address], [facility] 6 13:39:01 Cough variant asthma 823725223 Completed 02/19/2015 per pt not an issue 02/2015 Cyndy Yeager NP [address] [place], [place], [address], [facility] 6 13:39:00 Hordeolu m 291125885 Completed 2009 Cyndy Yeager NP [address] [place], [place], [address], [facility] 6 13:39:00 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 45541764 Active Cyndy Yeager NP [address] [place], [place], [address], [facility] 6 13:39:00 Generali zed anxiety disorder 37342540 Completed 200706/20/2014 removed per pt request Cyndy Yeager NP [address] [place], [address], [facility] 6 13:39:00 Myopia 43872991 Completed 200506/20/2014 Cyndy Yeager NP [address] [place], [address], [facility] 6 13:39:00 Astigmat ism 43321557 Active 2005 Cyndy Yeager NP [address] [place], [place], [address], [facility] 6 13:39:00 Chronic pain syndrome 453217492 Active 2007 Cyndy Yeager NP [address] [place], [place], [address], [facility] 6 13:39:00 Nonvenom ous insect bite of multiple sites 445020500 Completed 200601/25/2009 Cyndy Yeager NP [address] [place], [place], [address], [facility] 6 13:39:01 Abdomina l pain 77818923 Completed 03/23/2013 Cyndy Yeager NP [address] [place], [place], [address], [facility] 6 13:39:01 Panic disorder without agorapho vera 66390449 Completed 200506/20/2014 removed per pt request Cyndy Yeager NP [address] [place], [place], [address], [facility] 6 13:39:00 On examinat ion - a rash Completed 200601/25/2009 Cyndy Yeager NP [facility] [place], [place], [address], [facility] 6 13:39:00 On examinat ion - a rash Completed 03/23/2013 Cyndy Yeager NP [facility] [place], [place], [address], [facility] 6 13:39:00 Tension- type headache 213875103 Active FINA [place], [place], [address], [facility] 6 13:39:00 Electroc ardiogra m abnormal 224204443 Completed 200703/23/2013 Cyndy Yeager NP [facility] [place], [place], [address], [facility] 6 13:39:01 Senile osteopor osis 97466180 Completed 200606/20/2014 Cyn[facility]ager NP [address] [facility] [place], [address], [facility] 6 13:39:00 Low back pain 065100233 Completed 200506/20/2014 Cyndy Yeager NP [address] [facility] [place], [address], [facility] 6 13:39:00 Blephari tis 17289575 Completed 200701/25/2009 Cyndy Yeager NP [address] [facility] [place], [address], [facility] 6 13:39:00 Hypocalc emia 9584033 Active 2006 Cyndy Yeager NP [address] [facility] [place], [address], [facility] 6 13:39:00 Primary fibromya lgia syndrome 30276958 Active 2005 Cyndy Yeager NP [address] [facility] [place], [address], [facility] 6 13:39:00 Problem Notes None recorded. Procedures Surgical History Date Name Laterality Status Provider Name and Address Organization Details Recorded Time 02/29/20 19 Cerumen Removal - Irrigation/Lavage completed Angel Butler [facility] 02/28/2019 10:54:13 10/07/19 18 POC Strep Testing completed Jalyn Roque RN [facility] 10/06/2017 09:56:57 09/17/19 16 Medicare Risk for Falls Screen completed Noreen Barrios CMA [facility] 09/17/2015 09:54:14 03/14/20 15 Medicare Wellness Visit completed Tona Castillo LPN [facility] 03/14/2015 08:59:34 08/11/19 15 Treatment and Advice completed Ruthy Markham Ms, PT [address] [place], [address], [facility] 08/10/2014 10:51:38 08/08/19 15 Treatment and Advice completed Ruthy Markham Ms, PT [address] [place], [address], [facility] 08/07/2014 09:30:02 08/04/19 15 Treatment and Advice completed Ruthy Markham Ms, PT [address] [place], [address], [facility] 08/03/2014 10:00:43 06/09/19 15 Post hospital/SNF follow-up/Transit ional Care completed Daniela Quiroz LPN [facility] 06/09/2014 09:00:27 06/09/19 15 Transitional care completed Daniela Quiroz LPN [facility] 06/09/2014 09:00:27 05/04/18 81 Appendectomy completed Cyndy Yeager NP [address] [place], [address], [facility] 02/23/2012 11:47:44 05/04/18 81 Total Hysterectomy completed Not Available [facility] 03/20/2011 06:05:52 05/04/18 76 Oophorectomy completed Cyndy Yeager NP [address] [place], [address], [facility] 02/23/2012 11:47:44 05/04/18 49 Tonsillectomy completed Nguyen Quesada [address] [place], [address], [facility] 11/18/2011 09:03:39 Imaging Results Imaging Date Name Status LastModified by Organiz ation Details LastModified Time 11/24/2018 XR, neck completed [facility] (Imaging) [address], [place], [address], 11/25/2018 11:24:03 04/24/2019 CT, head, w/o contrast completed [address] [facility] [address] [place] [address], [address], 04/25/2019 08:25:57 04/24/2019 CT, head, w/o contrast completed [address], [address], 04/25/2019 08:25:57 04/26/2019 XR, cervical spine completed [address] (Imaging) [address], [place], [address], 04/28/2019 12:10:47 08/27/2020 XR, wrist, 3 or more view completed [address] [facility] [address] [place] [address], [address], 08/27/2020 17:05:13 08/27/2020 XR, finger(s), 2 or more view completed [address] Imaging Dept [address] [place] [address], [address], 08/27/2020 17:05:13 06/15/2018 bi mammogram outside (no interpretation ) completed [address] [facility] [address] [place] [address], [address], 05/14/2021 12:47:38 06/15/2018 bi US breast outside (no interpretation ) completed [address] [facility] [address] [place] [address], [address], 05/14/2021 12:47:38 Procedure Notes None recorded. Medical Equipment None Reported. Allergies Allergen ID Allergen Name Allergen Category Reaction Reaction Severity Criticality Documentation Date Start Date Code Code System Note Provider Name and Address Organization Details Recorded Time 818622 egg extract food,medi cation rash Not available Not available 04/14/2014 21330 15 RxNorm Tona Shoemaker LPN [facility], [facility] 4 09:24:29 984969 cow milk allergeni c extract food,medi cation rash Not available Not available 09/18/2014 75340 5 RxNorm Samia Schaeffer RN, BSN [facility], [facility] 6 09:52:13 463611 Lyrica medicatio n rash Not available Not available 03/14/2015 73086 1 RxNorm Tona Castillo LPN null, [facility] 5 09:07:18 306112 Reclast medicatio n other Not available Not available 09/17/2015 93511 2 RxNorm ariane vasquez, spikene ss R ankle (? react ion) Cyndy Yeager NP [address] [place], [address], [facility] 6 10:07:01 763153 fentanyl medicatio n rash severe Not available 12/12/2015 4337 RxNorm Samia Schaeffer, RN, BSN null, [facility] 6 09:53:12 20070510 cyclobenz aprine medicatio n rash Not available Not available 03/11/2017 81574 RxNorm Nguyen Quesada [address] [facility] [place], [address], [facility] 7 11:48:11 653286 wheat preparati on food,medi cation hives moderate Not available 12/31/2017 19957 52 RxNorm Tori Hirsch user, RMA [facility], [facility] 8 12:24:07 559431 Iodinated contrast media (substanc e) medicatio n rash moderate Not available 09/01/2018 20394 2004 SNOMED Nguyen Quesada [address] [place], [address], [facility] 9 09:29:07 346984 Augmentin medicatio n hives rash Not available Not available Not available 02/28/2019 89405 2 RxNorm Angel Butler CMA null, [facility] 9 10:10:42 996260 amoxicill in medicatio n rash Not available Not available 02/28/2019 723 RxNorm Angel Butler CMA [facility], [facility] 9 10:11:19 07036 bupivacai ne medicatio n rash Not available Not available 08/14/2009 1815 RxNorm but can cathy ate lidoc magali Nguyen Quesada [address] [facility] [place], [address], [facility] 6 12:12:42 564 Glycine max (substanc e) environme nt,food,m edication Not available Not available Not available 06/08/2008 08573 5007 SNOMED Not Available [facility] 1 06:05:20 565 Benadryl medicatio n rash Not available Not available 06/08/2008 21051 7 RxNorm Not Available [facility] 06:05:20 566 mold extract medicatio n Not available Not available Not available 06/08/2008 84538 8 RxNorm Not Available [facility] 1 06:05:41 567 house dust allergeni c extract environme nt,medica tion rash Not available Not available 06/08/2008 42275 9 RxNorm Not Available [facility] 06:05:20 568 codeine medicatio n rash Not available Not available 06/08/2008 2670 RxNorm Not Available [facility] 06:05:20 569 Levaquin medicatio n rash Not available Not available 06/08/2008 29465 2 RxNorm Not Available [facility] 1 06:05:20 570 Cefzil medicatio n rash Not available Not available 06/08/2008 88144 1 RxNorm Not Available [facility] 06:05:20 571 Keflex medicatio n rash Not available Not available 06/08/2008 28984 7 RxNorm rash after 33 doses (8d) 6 Cyndy Yeager NP [address] [place] [address], [facility] [place], [address] [place] [address] 6 10:07:01 572 latex environme nt,medica tion rash Not available Not available 06/08/2008 58561 91 RxNorm Not Available [facility] 06:05:20 573 erythromy arnold medicatio n rash Not available Not available 06/08/2008 4053 RxNorm Not Available [facility] 1 06:05:20 574 aspirin medicatio n rash Not available Not available 06/08/2008 1191 RxNorm Not Available [facility] 1 06:05:20 575 Biaxin medicatio n rash Not available Not available 06/08/200816156 9 RxNorm Not Available [facility] 1 06:05:20 576 ibuprofen medicatio n rash Not available Not available 06/08/2008 5640 RxNorm Not Available [facility] 1 06:05:20 577 rice food Not available Not available Not available 06/08/2008 91018 UNK Not Available [facility] 1 06:05:20 578 Hymenopte ra allergeni c extract medicatio n rash Not available Not available 06/08/2008 34513 4 RxNorm Not Available [facility] 1 06:05:20 579 Cleocin medicatio n rash Not available Not available 06/08/200843829 2 RxNorm Not Available [facility] 1 06:05:20 580 Tylenol medicatio n Not available Not available Not available 06/08/200808774 3 RxNorm can take 2101 Rashid Lyons MD [address] [place] [address], [place], [address] , [facility] 2 09:49:48 581 Substance with sulfonami de structure and antibacte rial mechanism of action (substanc e) medicatio n rash Not available Not available 06/08/2008 37477 8003 SNOMED Not Available [facility] 1 06:05:20 582 Shellfish (substanc e) food,medi cation rash Not available Not available 06/08/2008 83459 9006 SNOMED Not Available [facility] 1 06:05:20 583 Bactrim medicatio n rash Not available Not available 06/08/2008 06547 9 RxNorm Not Available [facility] 1 06:05:20 584 Product containin g penicilli n and antibioti c (product) medicatio n anaphylax is Not available Not available 06/08/2008 77792 05 SNOMED but had abx chall enge done by Dr. Nate Andujar in - can cathy ate amox, kefle x, augme ntin- React ed to amoxi cilli n - LS Nguyen Quesada [address] [place] [address], [place], [address] , [facility] [place] 9 09:40:16 585 corn extract food,medi cation rash Not available Not available 06/08/2008 31273 08 RxNorm Not Available [facility] 1 06:05:20 586 tetracycl ine medicatio n rash Not available Not available 06/08/2008 59576 RxNorm Not Available [facility] 1 06:05:20 587 caffeine food,medi cation rash Not available Not available 06/08/2008 1886 RxNorm Not Available [facility] 1 06:05:20 Medications Name Sig Start Date Stop Date Status Note LastModified by Organization Details LastModified Time Prescript ion - Prior Authoriza tion Request 04/03 completed reclast Not Available Not Available Not Available Singulair 10 mg tablet Take 1 tablet every day by oral route. 2008 active Not Available Not Available Not Avai lable amoxicill in 500 mg capsule 02/28 completed Not Available Not Available Not Available methocarb elliot 500 mg tablet active Not Available Not Available No t Available Augmentin 875 mg-125 mg tablet Take 1 tablet every 12 hours by oral route for 7 days. 11/22 completed Not Available Not Available Not Available cromolyn 100 mg/5 mL oral concentra te active Not Available Not Available Not Available prednison e 10 mg tablet TAKE 3TABS DAILY X3DAYS, 2TABS DAILY X2DAYS, 1TAB DAILY X1DAY THEN STOP 09/22 completed Not Available Not Available Not Available atorvasta tin 20 mg tablet active not taking 04/26/20 19 ds Not Available Not Available Not Available cetirizin e 10 mg tablet TAKE 1 TABLET BY MOUTH EVERY DAY FOR 21 DAYS 11/22 completed Not Available Not Available Not Available amoxicill in 600 mg-potass ium clavulana te 42.9 mg/5 mL oral suspensio n active Not Available Not Available Not Available prednison e 20 mg tablet 09/22 completed Not Available Not Available Not Available alendrona te 70 mg tablet 04/[address] Levy er Not Available Not Available Not Available prednison e 5 mg tablet 11/22 completed Not Available Not Available Not Available cephalexi n 125 mg/5 mL oral suspensio n active Not Available Not Available Not Available topiramat e 25 mg tablet 09/30 completed Currentl y holding Not Available Not Available Not Available fexofenad ine 180 mg tablet Take 1 tablet every day by oral route. 2008 active Not Available Not Available Not Avai lable omeprazol e 40 mg capsule,d elayed release active Not Available Not Available Not Available TobraDex 0.3 %-0.1 % eye ointment APPLY TO EYELIDS AT BEDTIME FOR 14 DAYS active Not Available Not Available No t Available lidocaine -prilocai ne 2.5 %-2.5 % topical cream 07/29 completed Not Available Not Available Not Available meloxicam 7.5 mg tablet active Not Available Not Available Not Available famotidin e 20 mg tablet 04/22 completed Not Available Not Available Not Available lorazepam 0.5 mg tablet active Take 1 tab 1-2x daily Not Available Not Available Not Available prednison e 1 mg tablet 04/22 completed Not Available Not Available Not Available amitripty line 10 mg tablet active Not Available Not Available No t Available baclofen 10 mg tablet active Take 1 tab BID Not Available Not Available Not Available cephalexi n 500 mg capsule TAKE ONE CAPSULE BY MOUTH EVERY 6 HOURS FOR 10 DAYS 10/29 completed Rash on the 6th day of taking medicine Not Available Not Available Not Available triamcino lone acetonide 0.1 % topical ointment active Not Available Not Available Not Available ropinirol e 0.5 mg tablet active Not Available Not Available Not Available lidocaine 5 % topical patch active Not Available Not Available Not Available gabapenti n 300 mg capsule Take 2 at night and 1 in the morning for 3 days, then 2 BID for 3 days, then 2 TID 2011 active Not Available Not Available Not Avai lable omeprazol e 20 mg capsule,d elayed release 09/30 completed Not Available Not Available Not Available mupirocin 2 % topical ointment active Not Available Not Available Not Available gabapenti n 100 mg capsule TAKE 1 CAPSULE TWICE A DAY FOR 3 DAYS, THEN 2 TWICE A DAY FOR 3 DAYS, THEN 3 TWICE A DAY FOR 3 DAYS 05/14 completed Stopped taking feels it did not work. Not Available Not Available Not Available epinephri ne 0.3 mg/0.3 mL injection , auto-inje ctor INJECT 0.3 MG INTO THE MUSCLE IF SIGNS OF ANAPHYLA XIS MAY REPEAT DOSE ONCE AFTER 5-15MIN active Not Available Not Available No t Available fentanyl 25 mcg/hr transderm al patch active Not Available Not Available Not Available polyethyl isha glycol 3350 17 gram/dose oral powder active Not Available Not Available Not Available albuterol sulfate HFA 90 mcg/actua tion aerosol inhaler Inhale 1 puff every 4 hours by inhalati on route. 2008 active Not Available Not Available Not Avai lable morphine 15 mg immediate release tablet active Not Available Not Available Not Available fluticaso ne propionat e 50 mcg/actua tion nasal spray,halina pension instill 1 spray into each nostril once daily 04/22 completed Not Available Not Available Not Available doxycycli ne hyclate 100 mg tablet active Not Available Not Available Not Available dicyclomi ne 10 mg capsule take 1-2 capsules by mouth four times a day if needed for ABDOMIN. .. (REFER TO PRESCRIP TION NOTES). 09/30 completed Not Available Not Available Not Available cyclobenz aprine 5 mg tablet take 1 tablet by mouth at bedtime 03/11 completed not taking JG 02-16- JG Not Available Not Available Not Available duloxetin e 20 mg capsule,d elayed release take 1 capsule by mouth once daily 09/30 completed Not Available Not Available Not Available fentanyl 12 mcg/hr transderm al patch active Not Available Not Available Not Available Lyrica 25 mg capsule TAKE 1 CAPSULE BY MOUTH 3 TIMES DAILY active ? Allergy- Not currentl y taking Not Available Not Available Not Available chlorhexi dine gluconate 0.12 % mouthwash active Not Available Not Available No t Available calcium active On hold JG 09-01-18 Not taking 01/13/19 SD Not Available Not Available Not Available amitripty line Take 2 pills daily active from Dr. Hinson Not Available Not Available Not Available Prevacid active Not Available Not Avai lable Not Available multivita min active On hold 5-1-19 JG Not taking 01/13/19 SD Not Available Not Available Not Available Baby Aspirin 10/06 completed Not Available Not Available Not Available peg 3350-elec trolytes 236 gram-22.7 4 gram-6.74 gram-5.86 gram solution active Not Available Not Available Not Available zoledroni c acid 5 mg/100 mL in mannitol 5 %-water intraveno us piggybck 5mg IV once over 30 min with normal saline solution 0.5L bolus 03/21 completed Not Available Not Available Not Available carisopro dol 250 mg tablet active Not Available Not Available No t Available Voltaren 1 % topical gel 04/22 completed Not Available Not Available Not Available Savella 50 mg tablet active Take 1 tab BID Not Available Not Available Not Available Savella 12.5 mg (5)-25 mg(8)-50m g(42) tablets in a dose pack USE DIRECTED ON PACKAGE 06/19 completed Not Available Not Available Not Available GaviLyte- N 420 gram oral solution 11/22 completed Not Available Not Available Not Available Gavilyte- C 240 gram-22.7 2 gram-6.72 gram-5.84 gram oral solution active Not Available Not Available Not Available lidocaine 5 % topical ointment Apply by topical route to affected area twice daily 10/29 completed Not Available Not Available Not Available codeine sulfate 30 mg/5 mL oral solution Bring to allergis t for testing as directed by allergis t 2012 active Not Available Not Available Not Avai lable Clindamyc in Pediatric 75 mg/5 mL oral solution 02/28 completed Not Available Not Available Not Available Vitals Date Recorded Body height Body mass index (BMI) Body weight Heart rate Body temperature Systolic blood pressure Diastolic blood pressure Provider Name and Address Organization Details Last Updated DateTime 9 148.59 cm 21.9 kg/m2 39891.8 9 g 88 /min 98.2 [degF] 110 mm[Hg] 70 mm[Hg] Karla Razo LPN [facility] 9 12:01:06 Date Recorded Body height Body mass index (BMI) Body weight Heart rate Systolic blood pressure Diastolic blood pressure Provider Name and Address Organization Details Last Updated DateTime 9 148.59 cm 21.9 kg/m2 19536.5 9 g 80 /min 106 mm[Hg] 60 mm[Hg] Karla Razo LPN [facility] 9 10:34:16 Date Recorded Body height Body mass index (BMI) Body weight Heart rate Systolic blood pressure Diastolic blood pressure Provider Name and Address Organization Details Last Updated DateTime 9 148.59 cm 22.1 kg/m2 22022.4 8 g 88 /min 130 mm[Hg] 72 mm[Hg] Ruthie Guerrier, [facility] 9 09:26:31 Date Recorded Body height Body mass index (BMI) Body weight Heart rate Systolic blood pressure Diastolic blood pressure Provider Name and Address Organization Details Last Updated DateTime 9 148.59 cm 22.2 kg/m2 14383.6 8 g 76 /min 118 mm[Hg] 76 mm[Hg] Angel Butler, [facility] 9 10:15:07 Date Recorded Body temperature Provider Name a il Address Organization Details Last Updated DateTime 02/28/2019 98.2 [degF] Lexi Hernández PA-C [address] [place] [address], [address], [facility] 02/28/2019 10:41:47 Date Recorded Body height Body mass index (BMI) Body weight Heart rate Systolic blood pressure Diastolic blood pressure Provider Name and Address Organization Details Last Updated DateTime 9 148.59 cm 22.4 kg/m2 15987.2 7 g 80 /min 128 mm[Hg] 84 mm[Hg] Maria E Reyez, [facility] 9 10:08:33 Social History Question Answer Notes LastModified by Organizat ion Details LastModified Time Tobacco Smoking Status Never Smoker 07/11/16 Sheyla Schreiber [employer] [address] [place], [address], [facility] [place] 07/11/2016 11:33:20 Do You Have An Advance Directive? Yes Natali And Son Jay Woods Daughter Yudith Evans Crect [email or web address] Information not available 11/18/2011 What Is Your Level Of Alcohol Consumption? None 07/11/16 [email or web address] Information not available 07/11/2016 Do You Wear A Helmet When Biking? No N/a Information not available 09/18/2014 What Is Your Level Of Caffeine Consumption? None Information not available 09/18/2014 How Much Tobacco Do You Chew? None Information not available 09/18/2014 What Type Of Diet Are You Following? SPECIFIC Veiew Allergy List- Milk, Nuts, Soy Information not available 09/18/2014 Which Illicit Or Recreational Drugs Have You Used? 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 0 Information not available 05/07/2012 Are There Any Guns Present In Your Home? No Information not available 09/18/2014 Live Alone Or With Others? With Others With Information not available 05/07/2012 Does The Patient Have Difficulty Speaking Serbian? No Information not available 09/18/2014 Does The Patient Have Difficulty Reading Serbian? No Information not available 09/18/2014 Patient Has Health Care Proxy Signed And In Chart Yes Sergio Boggs Information not available 04/14/2014 MOLST Form Signed And In Chart 03/14/2015 Information not available 03/14/2015 CCM Consent Discussion 10/04/2015 [email or web address] Information not available 10/05/2015 Marital Status [place] Information not available 05/07/2012 Mosquito Repellent Used Routinely Yes Information not available 09/18/2014 What Was The Date Of Your Most Recent Tobacco Screening? 11/22/2018 Information not available 11/24/2018 How Many Children Do You Have? 3 1 Boy And A Girl. 3 Grandchildren. [email or web address] Information not available 02/01/2009 Are There Any Occupational Health Risks Where You Work? Non [email or web address] Information not available 03/14/2015 Seat Belts Used Routinely Yes Information not available 04/14/2014 Are You Sexually Active? Yes Information not available 03/14/2015 Smoke Alarm In Home Yes Information not available 09/18/2014 How Much Tobacco Do You Smoke? No [email or web address] Information not available 03/20/2011 What Types Of Sporting Activities Do You Participate In? NONE ucks Information not available 09/18/2014 General Stress Level High High Due To Health, Sons Graduating, Moving, Fall In May Information not available 09/18/2014 Do You Use Sunscreen Routinely? Yes Information not available 09/18/2014 Sex: Unknown Functional Status None recorded. Mental Status None recorded. Family History Relationship Description Onset Age of this Age Resolved Age Notes LastModified by Organization Details LastModified Time Father Heart disease [email or web address] Not available 2014 08:30:35 Father Alcoholism in remiss ion [email or web address] Not available 03/23/2015 08:30:35 Father History of polyp of colon [email or web address] Not available 2014 08:30:35 Father Malignant neoplasm of skin ?melan delroy mspitzer Not available 03/23/2015 08:30:35 Father Age related macular degeneration [email or web address] Not available 08:30:35 Father Glaucoma [email or web address] Not available 03/23/2015 08:30:35 Father Malignant neoplasm of urinary bladder 85 95 nonsmo ker tdumont Not available 08/14/2014 09:23:42 Mother Depressive disorder [email or web address] Not available 2014 08:30:35 Mother Chronic obstructive pulmonary disease [email or web address] Not available 2014 08:30:35 Mother Alzheimer's disease 85 [email or web address] Not available 2014 08:30:35 Mother Osteoporosis mspitzer Not avail able 03/23/2015 08:30:35 Brother Hypertensive disorder mspitzer Not available 2014 08:30:35 Daughter Asthma mspitzer Not available 03/23/2015 08:30:35 Notes:states fh osteoporosis & HL & mac degeneration (details) no CT, CVA, DM, no breast or colon cancer Medical History Condition Response Anxiety Y ENT Y GASTROINTESTINAL Y Depression Y Migraine Headaches Y Hearing Loss N CARDIOVASCULAR Y Skin Cancer Y Fibromyalgia Y Osteoporosis Y Gynecological History Statement/Question Response Hysterectomy Y Age at Menarche 14 Date of LMP Obstetrics History GPAL:G 0 P 0 0 0 0 Immunizations Vaccine Type Date Status Note Provider Nam e and Address Organization Details Recorded Time Tdap 2010 completed Floridalma Carbajal [facility] 05/12/2014 12:22:30 Past Encounters Encounter ID Performer Location Encounter Start Date Encounter Closed Date Diagnosis/Indication Diagnosis SNOMED-CT Code Diagnosis ICD10 Code Diagnosis Note [id number] , [facility], [address]ICE [address] [place] [address] 01/23/2006 10:42:32 05/24/2008 02:02:29 [id number] , [facility], [address] [place] [address] 02/06/2006 09:49:57 02/06/2006 14:16:47 [id number] , [facility], [address] [place] [address] 02/13/2006 08:58:18 02/13/2006 15:37:40 [id number] [facility], [address] [place] [address] 02/24/2006 10:50:15 02/24/2006 15:11:08 [id number] Physical Therapy, [facility] [address] [place] [address] 03/11/2006 11:17:43 05/24/2008 02:02:29 [id number] Physical Therapy, [address] [address] 03/20/2006 09:47:05 05/24/2008 02:02:29 [id number] [facility], [address] [place] [address] 03/23/2006 10:57:48 03/24/2006 09:24:07 [id number] Eye Care, [address] [address] 04/16/2006 11:08:54 04/16/2006 16:44:09 [id number] FP, [facility], [address] [place] [address] 05/12/2006 09:57:16 05/12/2006 16:37:00 [id number] Radiology , [address] [address] 05/20/2006 11:07:20 05/21/2006 09:24:28 [id number] Radiology , [address] [address] 05/20/2006 00:00:00 05/24/2008 02:02:29 [id number] [facility], [address] [place] [address] 06/19/2006 10:28:52 06/19/2006 14:25:46 [id number] [facility] - [facility] [address] [place] [address] 06/19/2006 11:20:27 06/19/2006 11:20:38 [id number] [facility], [address] [place] [address] 10/01/2006 10:07:34 10/01/2006 11:37:34 [id number] [facility], [facility] [address] [place] [address] 10/01/2006 10:30:42 10/01/2006 17:56:33 [id number] [facility], [address] [place] [address] 10/23/2006 10:50:37 10/23/2006 13:30:29 [id number] [facility], [address] [place] [address] 11/16/2006 13:24:45 11/16/2006 15:35:43 [id number] , [facility], OFFICE [address] [place] [facility] [address] 11/24/2006 16:10:05 11/24/2006 17:20:43 [id number] [facility], OFFICE [address] [place] [facility] [address] 01/08/2007 13:28:29 01/08/2007 16:04:02 [id number] LAB - [facility] [address] [facility] [place] [facility] [place] [address] 01/12/2007 11:02:12 01/12/2007 11:02:34 [id number] [facility], OFFICE [address] [place] [facility] [address] 01/22/2007 15:09:23 01/22/2007 16:55:17 [id number] , [facility], OFFICE [address] [place] [facility] [address] 03/10/2007 09:25:56 03/15/2007 15:08:32 [id number] , [facility], OFFICE [address] [place] [facility] [address] 04/02/2007 13:38:39 05/24/2008 02:02:29 [id number] , [facility], OFFICE [address] [place] [address] 05/07/2007 16:07:52 05/24/2008 02:02:29 [id number] LAB - [facility] [address] [facility] [address] 06/02/2007 14:41:59 06/02/2007 14:44:21 [id number] LAB - [facility] [address] [facility] [address] 06/03/2007 08:10:59 06/03/2007 08:14:54 [id number] , [facility], OFF[address] [place] [address] 06/09/2007 12:08:11 05/24/2008 02:02:29 [id number] , [facility], OFFICE [address] [place] [address] 06/02/2007 13:37:18 05/24/2008 02:02:29 [id number] , [facility], OFFICE [address] [place] [address] 06/14/2007 10:49:52 05/24/2008 02:02:29 [id number] , [facility], OFFICE [address] [place] [address] 10/14/2007 10:06:22 05/24/2008 02:02:29 [id number] , [facility], OFFICE [address] [place] [address] 11/11/2007 10:09:14 05/24/2008 02:02:29 [id number] , [facility], OFFICE [address] [place] [address] 12/16/2007 13:02:34 05/24/2008 02:02:29 [id number] , [facility], OFF[address] [place] [address] 02/17/2008 10:52:21 05/24/2008 02:02:29 [id number] , C, OFFICE [address] [place] [address] 04/04/2008 08:58:12 05/24/2008 02:02:29 [id number] , [facility], OFFICE [address] [place] [facility] [place] [address] 06/08/2008 10:04:34 06/20/2008 10:44:42 [id number] , [facility], OFFICE [address] [place] [facility] [address] 10/05/2008 15:49:33 10/10/2008 14:17:31 [id number] , [facility], OFFICE [address] [place] [facility] [address] 10/19/2008 10:57:02 10/24/2008 10:47:47 [id number] , [facility], OFFICE [address] [place] [facility] [address] 11/30/2008 09:09:13 12/06/2008 14:40:50 [id number] , [facility], OFFICE [address] [place] [facility] [address] 02/01/2009 10:15:59 02/02/2009 14:02:21 [id number] , [facility], OFFICE [address] [place] [facility] [address] 02/05/2009 09:31:20 02/08/2009 12:06:33 [id number] , [facility], OFFICE [address] [place] [facility] [address] 02/15/2009 11:00:36 02/20/2009 15:33:19 [id number] LAB - [facility] [address] [place] [facility] [place] [address] 02/05/2009 08:43:03 02/05/2009 09:12:20 [id number] LAB - [facility] [address] [place] [facility] [place] [address] 02/14/2009 09:25:28 02/14/2009 09:52:20 [id number] , [facility], OFFICE [address] [place] [facility] [address] 03/01/2009 09:23:19 03/06/2009 10:36:28 [id number] , C, OFFICE [address] [place] [facility] [address] 04/12/2009 09:38:21 04/17/2009 10:41:14 [id number] Radiology , [facility] [address] [facility] [place] [address] 04/23/2009 09:21:02 04/24/2009 13:51:58 [id number] FP, [facility], OFFICE [address] [facility] [place] [address] 04/23/2009 09:57:20 04/25/2009 07:43:24 [id number] FP, [facility], OFFICE [address] [facility] [place] [address] 05/24/2009 08:33:01 05/28/2009 14:53:40 [id number] Radiology , [address] [address] 06/01/2009 09:37:55 06/04/2009 14:12:15 [id number] , [facility], OFFICE [address] [facility] [place] [address] 07/17/2009 10:22:35 07/19/2009 14:48:16 [id number] , [facility], OFFICE [address] [facility] [place] [address] 08/14/2009 12:54:09 08/17/2009 14:55:25 [id number] FP, [facility], OFFICE [address] [facility] [place] [address] 08/23/2009 11:40:27 08/28/2009 09:31:47 [id number] , [facility], OFFICE [address] [facility] [place] [address] 09/07/2009 12:24:00 09/11/2009 14:48:43 [id number] , [facility], OFF[address] [facility] [address] 10/19/2009 09:20:29 10/24/2009 14:16:32 [id number] Radiology , C [address] [facility] [place] [address] 08/09/2010 08:13:41 08/12/2010 13:34:53 [id number] FP, [facility], OFFICE [address] [facility] [place] [address] 11/18/2011 08:17:18 11/18/2011 09:15:40 [id number] Rashid Lyons MD , [facility], OFFICE [address] [place] [address] 02/06/2012 09:23:15 02/06/2012 11:53:57 [id number] Cyndy Yeager NP , [facility], OFFICE [address] [place] [address] 02/23/2012 10:29:46 02/23/2012 11:53:59 [id number] Nguyen Quesada , [facility], OFFICE [address] [place] [address] 03/04/2012 09:39:50 03/04/2012 10:17:47 [id number] Cydney Chavez , [facility], OFFICE [address] [place] [address] 05/07/2012 15:33:43 05/07/2012 16:43:05 [id number] Jere Eid MD , [facility], OFFICE [address] [place] [address] 05/28/2012 11:24:31 05/28/2012 12:35:08 [id number] Tona Shoemaker LPN , [facility], OFFICE [address] [place] [address] 08/17/2012 13:24:08 08/17/2012 13:53:46 [id number] , [facility], OFFICE [address] [place] [address] 04/14/2014 09:10:14 04/14/2014 10:20:42 Abdominal pain [id number] possibly adhesions recent evals within 1 year:neg ct per pt, neg cscope and egd trial of antispasmo dic but I was very clear that this is an anticholin ergic which could make her dizziness worse and lead to falls which are fvery dangerous for her given her frail frame and known untreated osteoporos is take w/ caution; if sx noted aboe worsen, stop this med see back in 2-3 weeks Allergic rhinitis [id number] trail of flonase helped in [place] past therefore try again Tooth disorder [phone] dr jj [phone] [facility] note: no answer thinking about going through [facility] and health care services for extraction will call to discuss fosamax Unable to balance [id number] PT needed 69 yo F w/ multiple medical problems; has completed PT at [facility] in 2011 for balance but it is an ongoing issue; has fallen; last time ~1 year ago; has history of osteoporos is; needs assessment and strength/g ait management ; known vertigo ?menierre' s Vertigo [id number] avoids salt neg eply today needs PT for balance trainign and / or ambulatory aids unclear if menierres but she attests to hearing loss and tinnitus; no n/v ?labrinyth vincent in setting of recurent sinusisit brain MRI wnl Dr Hinson ~09/2013 per pt Screening mammography [id number] Many women with early breast cancer have no symptoms which is why screening is so important. 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 stable; need to review cards records needs framingham score has asa allergy [id number] Cydney Chavez , [facility], [address] [place] [address] 06/09/2014 08:48:34 06/09/2014 10:45:46 Contusion of multiple sites [id number] Tona Shoemaker LPN , [facility] [address] [place] [address] 06/14/2014 11:48:27 06/14/2014 12:48:32 Concussion 65553247 seeing improvemen t; hopefully symptoms completely resolve in next couple of weeks otherwise may lend itself to post concussive syndrome education provided Fracture of rib 76448950 continues w/ point tenderness ; plan for xray now Whiplash i njury to neck 76919848 69 yo F w/ fall on ice 05/2014 w/ swelling and stiffness of L knee, needs strength training; also with whiplash like injury w/ good rom but stiffness Posterior rhinorrhea 91912738 very significan t on exam today plan for Flonase does not appear to have allergies to it Knee pain 45745481 69 yo F w/ fall on ice 05/2014 w/ swelling and stiffness of L knee, needs strength training; also with whiplash like injury w/ good rom but stiffness [id number] Cyndy Yeager NP , [facility] [address] [place] [address] 07/11/2014 10:58:52 07/11/2014 11:50:22 Knee pain 40597965 [id number] , [facility], [address] [place] [address] 07/19/2014 08:01:38 07/19/2014 09:52:51 Screening mammography 22446170 Many women with early breast cancer have no symptoms which is why screening is so important. Between regular mammograms , please pay attention to any of the following signs: -A lump or mass or swelling of all or part of the breast -Skin irritation or dimpling -Focal pain in the breast or nipple -Thickenin g of the nipple or breast -Unexpecte d nipple discharge, especially bloody discharge Knee pain 29765139 69 yo F w/ trauma to L knee 06/01/14 from fall with new ankle swelling and a red area x 4-5 day (area outlined) needs US to r/o clot was eval at [facility] but no note, staff requested now trial of icy hot as pt fearful to take anything oral warm compress to area of redness see back sooner if area spreads outside line raise leg nightly compress knee and start PT if unable to tolerate PT may need MRI t/c injections as well as may help during PT tranasisit on period Pain in limb 64693475 [id number] Physical Therapy, [address] [address] 07/24/2014 12:22:31 07/24/2014 14:35:16 Knee pain 55592472 [id number] Margaret Kelly , [facility] [address] [place] [address] 08/02/2014 09:07:22 08/02/2014 09:41:05 Erythema [id number] Ddx includes a bruise that's just becoming visible, reactive skin, or early cellulitis . That said, it sounds as though it has been unchanged in size and improved in color since visit with Dr. Cazares. She has been putting compresses on it regularly. She does have a prescripti on for Keflex from her dermatolog ist. [id number] Ruthy Markham Ms, PT Physical Therapy, [address] [address] 08/03/2014 09:09:16 08/03/2014 14:04:20 Knee pain 51044565 [id number] Ruthy Markham Ms, PT Physical Therapy, [address] [address] 08/07/2014 08:55:14 08/07/2014 09:42:24 Knee pain 14899928 [id number] Ruthy Markham Ms, PT Physical Therapy, [address] [address] 08/10/2014 09:58:12 08/11/2014 07:21:55 Knee pain 88044717 [id number] , [facility] [address] [place] [address] 08/14/2014 08:55:22 08/14/2014 09:23:57 Knee pain 14882043 69 yo F w/ trauma to L knee 06/01/14 from fall with ongoing red area x 1 mo; has Keflex from derm but not taking it until sees bilingual interpreter tomorrow (recommend kelfex 500mg bid x 7 days) (area outlined) she will confirm w/ dr calderon that she can take 07/2014 Doppler NEG was eval at [facility] but no note, staff requested (none received) trial of icy hot as pt fearful to take anything oral warm compress to area of redness see back sooner if area spreads outside line raise leg nightly as unable to tolerate PT -- MRI and ortho now t/c injections as well as may help during PT tranasisit on period Cellulitis of lower limb 071071113 as above concerning in that it is lingering but reassuring that no dvt and not enlargenin g note redness occurred ~07/16 and pt does not hang out outside so this is very unlikely to be a bull's eye/lyme from tick bite (would have resolved by now as well) [id number] Cyndy Yeager NP , [facility] [address] [place] [address] 09/07/2014 10:35:57 09/07/2014 11:19:05 Cellulitis of lower limb 187962937 Knee pain 06628686 [id number] Ruby Woo , [facility] [address] [place] [address] 09/18/2014 10:09:52 09/18/2014 11:14:50 Postmenopausal state 99411469 Acute uppe r respiratory infection 00096526 Educated patient that URI is a viral illness of the upper airways. It is not bacterial and does not benefit from antibiotic s. Average duration of URI is 7-10 days but in a recent trial, treatment at 7-10 days of illness with antibiotic s, intranasal steroids, or placebo did not alter natural history at 3 weeks. Recommende d symptomati c treatments including NSAIDS, semi-uprig ht sleep position, antihistam ori at HS, limited course of nasal sympathomi metics and/or cough syrups, and nasal saline rinses with soft squeeze bottle or Neti pot. Return for fevers > 101 for 3 days, worsening sinus pain, or failure to resolve in 2-4 weeks. reassured this is probably viral, anxious, multiple allergies and developing new ones, to see Dr Yumiko mcrae. [id number] , [facility], [address] [place] [address] 10/02/2014 11:34:41 10/02/2014 12:41:57 Knee pain 97944670 will wear sleeve and continue PT exercises she is aware that a sleeve can be supportive but may mask ongoing weakness and PT is tello Impairment of balance 480745279 69 yo F w/ a fall in may with L knee pain and worsening balance since this injury; MRI of knee without anatomical disruption , but continues with low back pain and impairment of balance, please help optimize for balance/ga it Environmental allergy [id number] going for allergy shots and close f/up iwth dr calderon; on cramolyn sodium 5ml seeing yumiko 10/10/14 wt down 7lb in 3months 94lb today Abnormal weight loss 761494401 check alb if quite low ensure/linn st will be needed; pt to reveiw this rec w/ yumiko to make sure this supplement is safe to take [id number] Jalyn SOW, [facility] [address] [place] [address] 11/21/2014 10:40:50 11/21/2014 11:57:07 Knee pain 51392637 did not tolerate hinged brace; recommend sleeve; if not covered by her insurance, she will think about buying it over the counter, encouraged PT exercises at home that she learned as she is overwhelme d w/ appts and decided to not f/up with PT at this time History of multiple allergies 769542868 complicate d history and happy to see she is improving s/p allergy shots and has had some wt gain. all good news Abdominal pain 86068950 possibly adhesions recent evals within 1 year:neg ct per pt, neg cscope and egd CT a/p: 09/2014 w/ 3.7cm on R side and her pain is LLQ, no bowel issues; plan for US and GI f/up see back in 2-4 weeks [id number] Endocrindorota balderrama [address] [address] 12/14/2014 10:08:46 12/14/2014 11:52:59 Osteoporosis 07031298 [id number] JUANJOSE [facility], [address] [place] [address] 01/22/2015 13:17:48 01/22/2015 15:44:10 Chronic pain syndrome 639632440 69 yo F w/ complicate d PMH with FM and multiple drug allergies with full body pain; see note for details of her allergies; she is requesting a referral for review of medical marijuana with dr coleman; has never tried marijuana in her life need neuro records pt also requesting letter for disabled transporta tion: pt will try to get me a copy of letter from dr hinson, submitted 09/2012 and my staff is working on getting me a copy of dr hinson's records Abdominal pain 32247779 possibly adhesions but GI eval per pt without request for other work up other than US I ordered recent evals within 1 year:neg ct per pt, neg cscope and egd CT a/p: 09/2014 w/ 3.7cm adnexal cyst on R side and her pain is LLQ, no bowel issues; plan for US (pt wishes to keep oct apt and not move it up); see back after US [id number] Jalyn Cazares M.D. , [facility], [address] [place] [address] 02/19/2015 11:37:38 02/19/2015 12:45:13 Chronic pain syndrome 754750380 G89.[address] coleman (out of pocket cost $200) copy of her previsit ppwk put in chart letter for pvta given Abdominal pain 35531141 R10.9 possibly adhesions but GI eval per pt without request for other work up other than US I ordered recent evals within 1 year:neg ct per pt, neg cscope and egd CT a/p: 09/2014 w/ 3.7cm adnexal cyst on R side and her pain is LLQ, no bowel issues; plan for US (pt wishes to keep oct apt and not move it up); see back after US 2nd opinion at [facility] and pt will f/up with gi and repeat ct per gi recs [id number] Jalyn Cazares M.D. , [facility], [address] [place] [address] 03/14/2015 08:56:17 03/14/2015 09:57:20 Adult health examination 442497321 Z00.00 see Risk Assessment and Lifestyle Change Counseling section above Counseling 211788756 Z71 .9 Screening for disorder 409859076 Z11.59 Abdominal pain 18036839 R10.9 possibly adhesions but GI eval per pt without request for other work up other than US I ordered recent evals within 1 year:neg ct per pt, neg cscope and egd CT a/p: 09/2014 w/ 3.7cm adnexal cyst on R side and her pain is LLQ, no bowel issues; 02/2015 pelvic US: R adnexal cyst >3cm (on 09/2014 CT cyst was 3.7cm), enlarged ovary; periodic surveillan ce, consider [facility] eval; no source of left sided painNOT E pt only had abd US, this is labeled wrong. she had to decline the transvag US due to pain 2nd opinion at [facility] if purse seining hand eval on thursday is not revealing Chronic pain syndrome 37 0016396 G89.[address] coleman (out of pocket cost $200) copy of her previsit ppwk put in chart letter for pvta given last visit and addended today per pt request note: pt was f/b dr hinson for her chronic pain issues and he has passed; we are holding on further neuro eval at this time but would consider referral to dr pardo or PSS if needed in the future [id number] Yony Ruiz MD [facility], [facility] [address] [place] [address] 03/23/2015 07:49:27 03/23/2015 10:03:12 Osteoporosis 06488704 M81.0 -add calcium 500mg by mouth once daily -increase vitamin d to 2000units by mouth once daily in general, 4000units daily 1 week before and after the reclast -continue dairy 3 times daily [id number] Norma Walker , [facility], [address] [place] [address] 06/12/2015 11:16:07 06/12/2015 12:37:21 Fibromyositis 90601063 M79.7 Given multiple allergies, discussion re: medical marijuana as below. Pain in le ft lower limb 791041053 M79.605 Likely related to fall, I agree. Potential options for management going forward as below. Allergic reaction 230727 005 T78.40XD Agree with continuing with Dr. Calderon for allergy shots and intermitte nt assessment s. [id number] Eric Ritter MD , [facility], [address] [place] [address] 06/17/2015 09:15:09 06/17/2015 09:48:52 Acute upper respiratory infection 50436002 J06.9 reassurred cough is minor due to uri body aches due to likely viral nature. she declined cough med reguardles her illness likely will rsolve on own Educated patient that URI is a viral illness of the upper airways. It is not bacterial and does not benefit from antibiotic s. Average duration of URI is 7-10 days but in a recent trial, treatment at 7-10 days of illness with antibiotic s, intranasal steroids, or placebo did not alter natural history at 3 weeks. Recommende d symptomati c treatments including NSAIDS, semi-uprig ht sleep position, antihistam ori at HS, limited course of nasal sympathomi metics and/or cough syrups, and nasal saline rinses with soft squeeze bottle or Neti pot. Return for fevers > 101 for 3 days, worsening sinus pain, or failure to resolve in 2-4 weeks. [id number] Nguyen Quesada , [facility], [address] [place] [address] 06/19/2015 11:36:28 06/19/2015 12:15:20 Acute upper respiratory infection 45754886 J06.9 Acute bronchitis 7233397 2 J20.9 Pain in throat 111225855 R07.0 [id number] Norma SOW, [facility], [address] [place] [address] 07/05/2015 07:56:57 07/05/2015 08:28:12 Cough 16337142 R05 Post-viral cough. No apparent need for antibiotic at this point in time. Backache 611737872 M54.9 [id number] Nguyen Quesada , [facility], [address] [place] [address] 08/16/2015 08:33:34 08/16/2015 09:20:00 Osteoporosis 68937451 M81.0 Will be receiving reclast from [facility], which should help to stabilize bones. Fibromyositis 41874712 M 79.7 May cause delayed pain after falls. Discussion as below. Anxiety 42545041 F41.9 Understand able, given other health issues Recurrent falls 18668980 2 R29.6 Likely related to deconditio hay due to fibromyalg ia; discussed how fear of falling can encourage falls. Migraine 03570303 G43.90 9 Hx migraine and neuralgia. Recommend seeing Dr. Linares as Dr. Hinson is no longer available. [id number] Cyndy Yeager NP , [facility], [address] [place] [address] 09/07/2015 16:52:24 09/08/2015 11:06:29 Cellulitis 246954761 L03.90 [id number] Nguyen Quesada , [facility], [address] [place] [address] 09/10/2015 11:38:25 09/10/2015 12:28:38 Swelling of lower leg 237147628 R22.41 On R. Pt is on day 3 of cephalexin . Recommend finishing the medication at this point in time as ?if it has improved based on last descriptio n. Recommend also check thyroid and uric acid. [id number] Cyndy Yeager NP , [facility], [address] [place] [address] 09/17/2015 09:35:06 09/17/2015 10:16:17 Swelling of lower leg 278613164 R22.41 [id number] Cyndy Yeager NP , [facility], [address] [place] [address] 09/21/2015 09:45:27 09/21/2015 10:53:31 Foot pain 73692732 M79.671 Fibromyositis 29631342 M 79.7 [id number] Nguyen Quesada , [facility], [address] [place] [address] 10/04/2015 09:54:02 10/04/2015 11:07:38 Diarrhea 52644259 R19.7 Given recent antibiotic s, will check for c. dif or other opportunis tic infections . Malaise and fatigue 2717 93177 R53.81 Nonfasting labs today. If everything is normal, may be that the Reclast somehow triggered a fibromyalg ia flare, which is unfortunat e, and we may simply have to wait for this to fade. Pain in lower limb 67813 006 M79.[address] Ding for further assessment of the leg [id number] Nguyen SOW, [facility], [address] [place] [address] 10/30/2015 08:49:23 10/30/2015 10:11:42 Primary fibromyalgia syndrome 13343529 M79.7 Unclear if reclast set off the fibromaylg ia. 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 Agree with desensitiz ation therapy via PT. Unclear if prednisone will help or not; discussed risks/bene fits and reviewed termination clerk versus short term side effects. [id number] Nguyen Quesada , [facility], [address] [place] [address] 11/14/2015 11:23:14 11/14/2015 12:27:56 Swelling of lower leg 757876181 R22.41 Will call cardiology office to see if they can do PVD testing on legs; if positive, would get CT angio of legs. Will also check labs and repeat ultrasound of the lower leg. [id number] MD JUANJOSE Lyles, [facility], [address] [place] [address] 12/12/2015 09:13:37 12/12/2015 10:30:50 Complex regional pain syndrome, type I 46461877 M89.00 [id number] Yony Ruiz MD [facility] [address] 03/21/2016 10:26:58 03/21/2016 11:32:18 Osteoporosis 35168748 M81.0 -bone density testing 08/18, clinic 09/17 Gastroesop hageal reflux disease 526474639 K21.9 Long-term drug therapy 576160916 Z79.899 A repeat DXA a year after the prior exam is indicated due to osteoporos is and treatment with bisphospho nates to evaluate response to therapy. [id number] Nguyen SOW, [facility], [address] [place] [address] 04/03/2016 09:14:38 04/03/2016 10:15:43 Cyst of ovary 48678181 N83.201 Primary fi bromyalgia syndrome 15910213 M79.7 I feel reclast set off the fibromaylg ia. Discussion about medication s for this as below. Plan on pt calling me so we can determine the correct medication to use and following up in 6-8 weeks. Over 50% of visit spent discussing current symptoms and plan of treatment [id number] Nguyen Quesada , [facility], [address] [place] [address] 05/14/2016 11:44:20 05/14/2016 12:29:32 Primary fibromyalgia syndrome 74641735 M79.7 I still feel reclast set off the fibromyalg ia. Will plan on starting patient on savella and completeti ng a PA if needed based on meds listed in HPI. If insurance still will not cover, would consider trial of duloxetine . [id number] Yony Ruiz MD Endocrino logy, [facility] [address] [place] [address] 06/19/2016 09:36:30 06/19/2016 10:11:46 Osteoporosis 30002224 M81.0 -assess for bone lining changes of the hip, degenerati ve change of spine-bone density testing 08/18, clinic 09/17 Gastroesop hageal reflux disease 929735665 K21.9 Long-term drug therapy 205979488 Z79.899 A repeat DXA a year after the prior exam is indicated due to osteoporos is and treatment with bisphospho nates to evaluate response to therapy. [id number] Nguyen SOW, [facility], [address] [place] [address] 06/24/2016 08:58:34 06/24/2016 09:41:25 Fibromyositis 75993055 M79.7 Question if this may simply be worse at this point in time in terms of the all over pain. Hopefully can start the duloxetine sooner rather than later, but financial limitation s are an issue. Degenerati ve joint disease involving multiple joints 963023063 M15.[address] Per pt [address] Ruiz, pt would like to go back to rheumatolo gist. She plans to go back to see Dr. Reyes on Thursday to discuss options for her osteoporos is and her neck pain. Neuralgia 52368809 M79.2 New referral placed. [id number] Yony Ruiz MD [facility], [address] [address] 07/11/2016 11:29:40 07/11/2016 12:46:49 Osteoporosis 34625252 M81.0 -calcium supplement , clarify content-da iry 4 servings daily-lizeth min, clarify dose -urine calcium and creatinine to evaluate calcium balance Gastroesop hageal reflux disease 863161017 K21.9 Long-term drug therapy 364939921 Z79.899 A repeat DXA a year after the prior exam is indicated due to osteoporos is and treatment with bisphospho nates to evaluate response to therapy. [id number] Nguyen Quesada , [facility], [address] [place] [address] 08/19/2016 09:17:14 08/19/2016 09:59:46 Fibromyositis 29238020 M79.7 Still question if this may simply be worse at this point in time in terms of the all over pain. Hopefully it is not the duloxetine that is causing rash. Plan as below. Neuralgia 41730205 M79.2 Pt to f/u with Dr. Barker. Eruption 554109337 R21 Unclear if due to meds or food or something else. Plan as below. [id number] Nguyen SOW, [facility], [address] [place] [address] 09/01/2016 09:16:49 09/01/2016 10:33:23 Neck pain 25723213 M54.2 Likely sprain on top of fibromyalg ia. Would recommend restarting the duloxetine and scheduling an appointmen t with PT. Eruption 269083545 R21 Resolved. Plan as below. [id number] Christiane Trevino MD PhD Rheumatol vladislav, [address] [address] 09/30/2016 08:55:18 09/30/2016 10:11:50 Fibromyalgia 771500203 M79.7 typical fibromyalg ia presentati on. Although she is allergic to may medicaiton s, she has not tried flexeril and is interested in trying. 1). start flexeril 5mg at bedtime, Side effects were explained and instructio n was given; she may try 2.5mg at bedtime. 2). recommende d physical therapy adn she declined, encourage aqua therapy, exercises and recommende d TaiChi/Yog a program; 3). send ESR/CRP to rule out PMR; 4). follow up in 2 weeks to discuss. Degenerati ve joint disease involving multiple joints 181718864 M15.9 typical OA changes of hands and X-ray showed cervical degenerati ve changes. 1). she declined physical therapy, encourage exercises and instructio n was given; 2). follow up Greater tr ochanteric pain syndrome 5467981 M70.60 tenderness at both greater trochanter . She declined steroid injection and will consider. encourage exercises as instructed . follow up. Dry eyes 522093977 H04.1 31 she has dry eyes and dry mouth for years. history of one miscarriag e with unknown reason. rule out sjogren syndrome, which also can cause fatigue and joint pain. sent SSA/SS. follow up. [id number] Nguyen SOW, [facility], [address] [place] [address] 02/16/2017 12:06:26 02/16/2017 12:47:06 Screening mammography 06934462 Z12.31 Edema 053995862 R60.9 More likely venous insufficie ncy given the pattern of swelling and normal chest exam; pt also c known hx of insufficie ncy bilaterall y and only slightly abnormal echo a year ago. Would monitor. [id number] Nguyen SOW, [facility], [address] [place] [address] 03/11/2017 11:09:09 03/11/2017 12:03:33 Edema 379815784 R60.9 Echocardio gram unchanged from 2015, hx of venous insufficie ncy. Swelling and pain appear separate at this point, so would focus more on the pain than the swelling, since it sounds like the pain is preventing regular compressio n stocking use. Pain in lower limb 11425 006 M79.604 Pt was diagnosed with CRPS at one point by one physiatris t. Symptoms are certainly more consistent with underlying issue with nerves than with edema, given that they seem to be independen t of each other. Unfortunat carl pt does not tolerate many medication s at all. Would recommend [id number] Nguyen SOW, [facility], [address] [place] [address] 06/01/2017 09:02:59 06/01/2017 09:44:52 Pain in lower limb 57965809 M79.604 Pt was diagnosed with CRPS at one point by one physiatris t. Pt hasn't followed up with the other office, however; they did order a bone scan. Varicose v eins of lower extremity 26032902 I83.893 Recommend supplement ing with Vitamin C to help with healing process afterwards . [id number] Nguyen SOW, [facility], [address] [place] [address] 07/29/2017 11:12:53 07/29/2017 12:15:09 Screening mammography 34715021 Z12.31 Acute sinusitis 22102684 J01.90 Subacute sinusitis. Unclear if bacterial given lack of fever. and antibiotic (pt with hx of rash with PCN, Keflex, Sulfa, Tetracycli ne, Levaquin, Erythromyc in, Biaxin so choice of abx would be difficult, pt states she can take augmentin if needed) Recommend nasal rinses with soft squeeze bottle with salt packets added distilled water - lean forward, don't swallow. This is for symptoms, so if not improving with rinsing, don't need to keep doing this; can do this up to 4x daily when sick/unwel l. Recommend using flonase daily at this point in time. If high fever, may be bacterial, so call If not improving, recommend discussing with Dr. Calderon. Peripheral venous insufficiency [id number] I87.2 Discussion regarding procedure as below. Neoplasm o f uncertain behavior of skin [id number] D48.5 [id number] FINA Tillman, [facility], OFFICE [address] [place] [address] 10/06/2017 09:38:36 10/06/2017 13:46:41 Acute upper respiratory infection 71117862 J06.9 Educated patient that URI is a viral illness of the upper airways. It is not bacterial and does not benefit from antibiotic s. Average duration of URI is 7-10 days but in a recent trial, treatment at 7-10 days of illness with antibiotic s, intranasal steroids, or placebo did not alter natural history at 3 weeks. Recommende d symptomati c treatments including NSAIDS, semi-uprig ht sleep position, antihistam ori at HS, limited course of nasal sympathomi metics and/or cough syrups, and nasal saline rinses with soft squeeze bottle or Neti pot. Return for fevers > 101 for 3 days, worsening sinus pain, or failure to resolve in 2-4 weeks. Screening mammography 24 [id number] Z12.31 Pain in throat [id number] R07.0 [id number] Nguyen SOW, [facility], OFF[address] [place] [address] 10/21/2017 11:17:16 10/21/2017 14:23:53 Fibromyalgia 749369554 M79.7 Will recheck inflammato ry markers to make sure these are still normal. Discussion as below. Acute uppe r respiratory infection 07749057 J06.9 Improving gradually; may take up to 4 weeks to resolve completely and cough may take up to 6 weeks. Pain in ri ght lower limb 403257930 M79.604 Symptoms consistent with nerve pain, unfortunat carl. Discussion as below. [id number] Nguyen SWO, [facility], OFFICE [address] [place] [address] 12/31/2017 11:54:46 12/31/2017 13:18:10 Screening mammography 46969756 Z12.31 Cyst of ovary 82217955 N 83.201 Will repeat U/S to make sure cyst hasn't changed and still appears normal. Abdominal pain 34235146 R10.9 Keep taking famotidine . Please get allergy testing done by Dr. Calderon for the foods. Can consider FODMAPs diet trial if not a lot of food allergies. [id number] Nguyen SOW, [facility], OFFICE [address] [place] [address] 02/18/2018 08:53:57 02/18/2018 09:47:06 Osteoporosis 86588217 M81.0 Discussed with pt that I don't think this should stop her from getting a mammogram but will put a note on the mammo for staff to be as gentle as possible. Generalize d aches and pains 52663542 R52 Agree with keeping appointmen t wtih the specialist . [id number] Nguyen Quesada , [facility], OFFICE [address] [place] [address] 04/22/2018 14:03:31 04/22/2018 15:04:57 Fibromyositis 34741716 M79.7 Strong suggestion that reclast triggered the fibromyalg ia, unfortunat carl. Left bundl e branch hemiblock 5558002 I44.60 Osteoporosis 31431069 M8 1.0 To trial prolia with Dr. Masters . [id number] [facility], OFFICE [address] [place] [address] 06/04/2018 11:54:51 06/04/2018 12:49:01 Pain of breast 72343230 N64.4 Will check diagnostic mammogram and breast ultrasound . Rib pain 884341990 R07.8 1 Will check rib and CXR to r/o fracture, pneumonia presenting atypically . Advised to watch for rash as this could be early shingles, she will return to the clinic immediatel y with any presentati on of rash along area of pain. Pt states she cannot tolerate tylenol, NSAIDs. Advised use of topical lidocaine to rib which she has at home. [id number] Briana Grijalva , [facility], OFFICE [address] [place] [address] 08/12/2018 11:23:55 08/12/2018 12:08:53 Abdominal pain 60304259 R10.9 Significan t LLQ tenderness . Question if atypical presentati on of diverticul itis. Given abx allergies would rather hold off on those unless absolutely necessary. [id number] Nguyen Quesada , [facility], OFFICE [address] [place] [address] 09/01/2018 08:44:59 09/01/2018 09:47:36 Eruption 276420704 R21 Improving slowly. Would do a slow taper and have pt also continue with the cetirizine Abdominal pain 55815742 R10.9 Significan t LLQ tenderness previously but CT without good explanatio n. To keep appointmen t with GI as scheduled. [id number] Nguyen Quesada , [facility], OFFICE [address] [place] [address] 09/22/2018 09:56:32 09/22/2018 10:51:31 Dizziness 168400623 R42 EKG is unchanged, rhythm is regular. Given history and findings of orthostasi s today, suspect that pt had drop in BP that led to everything . Plan on fluids, follow-up with cardiology . Foreign body in skin [id number] [id number] W45.8XXA Removed with forceps. Neck pain 69072051 M54.2 Likely sprain on top of fibromyalg ia. Plan as below. [id number] Nguyen Quesada , [facility], OFFICE [address] [place] [address] 10/25/2018 11:50:28 10/25/2018 12:20:58 Acute sinusitis 10153401 J01.90 Low grade sinusitis. Unclear if bacterial given lack of fever, seems more like viral at the moment. Pt is allowed to take augmentin (challenge d by bilingual interpreter) . That said, given on the cusp would recommend antibiotic only if not improving by Thursday. [id number] Nguyen SOW, [facility], OFFICE [address] [place] [address] 11/22/2018 10:24:27 11/22/2018 10:52:42 Neck pain 59052113 M54.2 Likely sprain on top of fibromyalg ia. Plan as below. Multiple joint pain 3567 8005 M25.50 [id number] Nguyen SOW, [facility], OFFICE [address] [place] [address] 01/13/2019 09:14:41 01/13/2019 09:49:15 Thyroid hormone borderline low 171666605 R89.1 Will check twice yearly. Eruption 518877924 R21 Improving slowly. Would do a slow taper and have pt also continue with the cetirizine Low back pain 051133594 M54.5 Recommend supportive care, can write script for PT if needed [id number] Lexi Hernández PA-C , [facility], OFFICE [address] [place] [phone] 02/28/2019 09:30:55 02/28/2019 11:08:21 Allergy 253884567 Z91.09 Epipen refilled. Referred to miladis covarrubias bilingual interpreter. Impacted c erumen in right ear [id number] 679955 H61.21 Cerumen removed without incident [id number] Evita Cosme PA-C , [facility], OFF[address] [place] [address] 04/26/2019 09:50:42 04/26/2019 10:47:42 Neck pain 14803599 M54.2 Neck pain x4 days, no known trauma, will order xray to rule out occult fracture. Pt instructed to use topical lidoderm patches OTC or local heat. Pt unable to take NSAIDs or muscle relaxer due to allergies. Health Concerns Section Related Observation LastModified by Organization Detai ls LastModified Time None Recorded Concern Status LastModified by Organization Details LastModified Time None Recorded Advance Directives Directive Y: natali and son ina woods daughter yudith evans crect Payers Encounter Date Sequence Insurance Name Policy Number Policy Mcgraw Covered Member ID Mcgraw Member ID Guarantor Name 10/25/2018 1 [place] Nicci Boggs [id number] [facility] 10/25/2018 2 [place] [id number] Nicci Boggs [id number] Nicci Ahardy 11/22/2018 1 [place] Nicci Boggs [id number] Nicci Ahamargaret 11/22/2018 2 [place] [id number] Nicci Boggs [id number] Nicci Ahardroz 01/13/2019 1 [place] Nicci Boggs [id number] Nicci Ahamargaret 01/13/2019 2 [place] [id number] Nicci Boggs [id number] Nicci Ugarte 02/28/2019 1 [place] [facility] Nicci Boggs [id number] Nicci Ugarte 02/28/2019 2 [facility] [id number] Nicci Boggs [id number] Nicci Ugarte 04/26/2019 1 [place] [facility] G[place]MENT [facility] Nicci Boggs [id number] 7 Nicci Ugarte 04/26/2019 2 [place] [id number] Nicci Boggs [id number] Nicci Ugarte Notes Date Note Type Note Provider Name and Address Organization Details Recorded Time 10/25/2018 text/html Pt comes in toda y c/o two weeks of cough, facial pressure, and headache. Sometimes she feels off-balance and sometimes she feels lightheaded. She denies fever. She has a hx of some seasonal allergies (she doesn't usually doesn't get them triggered because she stays in the house with the A/C right now). She does have a hx of multiple allergies to antibiotics. Pt doesn't use nasal rinses. Pt notes that she has not felt well since she had an allergic reaction to contrast requiring prednisone. She was continued on cetirizine which she is taking as needed. Historically, pt tends to take months to return to baseline after an acute upset to health, likely related to her fibromyalgia. Nguyen Quesada [address] [place] [address], [phone], [facility] 10/25/2018 12:18:57 11/22/2018 text/html Pt comes in toda y c/o feeling lousy for the past few months, she states 'I'm still having intense, all over body pain' and in particular her neck and shoulders. She states it makes her feel dizzy and lightheaded. She has been having headaches as well. Of note, pt has complained of widespread body pain for many years, and she carries the diagnosis of fibromyalgia; she does not tolerate medications. She also had worsening pain after a Reclast infusion in 2016. Pt was on a cruise from 10/01-10/08 and came back not feeling well. She was seen 10/25 and prescribed augmentin for a presumptive sinus infection (2+ weeks of cough, facial pressure, and headache, along with lightheadedness). She states she didn't take the augmentin. Pt had prednisone in September due to a rash triggered by CT contrast and didn't feel well after that, either. She notes 'medicines make me feel poorly.' Pt notes she was having jaw pain and she was worried about an abscess. She saw her used car salesperson who recommended taking amoxicillin which she finished 11/12. She does feel it helped her jaw some and she is going to be having a root canal next week. Nguyen Quesada [address] [place], [address], [facility] 11/22/2018 10:52:37 01/13/2019 text/html [facility] TSH done at another lab was slightly high, here it was normal and Free T4 was normal. Pt is anxious about why these could be different. Pt also c/o rash under both breasts and the back of the neck. The rash doesn't feel 'right' but doesn't itch. Pt states she had a root canal and this is the third time she is on amoxicillin. Tomorrow should have been the last day of amoxicillin. She isn't sure if the rash is due to the med or if it is due to something else. She does see Dr. Calderon and has done allergy challenges with him again. Pt c/o L lower back pain; no trigger. This has been sore for the past couple of days. Nguyen Quesada [address] [place], [address], [facility] 01/13/2019 09:44:29 02/28/2019 text/html Pt reports she h as an appt for hearing aids. He asked pt to come in here to eval for wax buildup. She was on clindamycin x 1 week for tooth extraction. Last day of clindamycin was 02/23/19. She also c/o sinus issues x the week she took the antibiotics. She c/o facial pain on the right. Tooth was extracted on the right. No cough. No purulent nasal drainage. No fever. No chest pain. No shortness of breath.Would like to see her bilingual interpreter for testing for antibiotic allergies. Has multiple antibiotic allergies. Lexi Hernández PA-C [address] [place], [address], [facility] 02/28/2019 13:50:24 04/26/2019 text/html 74yo female come s in for neck pain x4 days. On Thursday pt reports she began getting a headache/neck pain, pt went to the ED on Thursday due to the pain. They did a CT scan and bloodwork which was wnl, pt was discharged with PO morphine which pt has not taken because the pain hasn't been as severe and she only likes taking medication if she absolutely has to. Pt reports the headache is gone but she still has neck pain. Pt notes that while she was in the ED her blood pressure was elevated due to pain but went down after she was given the pain medication. Pt denies trauma to the neck. Pt denies f/c, difficulty ambulating, numbness/tingling in her extremities, no change in bowel movements, no bowel/bladder incontinence. Evita Cosme PA-C [address] [place], [address], [facility] 04/26/2019 11:04:30 OBGyn Episode No OBEpisode recorded.
== END 2024-06-07 09:38 | disposition home or self-care (01) ==
PROVIDERS: PCP Pediatrics; Visit Provider Internal Medicine Rheumatology
DX: M13.0 Polyarthritis, unspecified (principal)
CPT/HCPCS: 99204; G2211

== ENCOUNTER 2024-07-07 08:47 | Outpatient (REF) | payer MEDICARE, SELFPAY ==
--- NOTE | ~2024-07-07 | XR_ITS ---
CLINICAL HISTORY: M13.0 - Polyarthritis, unspecified 3 view right foot Comparison: None Findings: No fractures or dislocations. No significant arthritic change or erosions. Soft tissue structures appear within normal limits. IMPRESSION: 1. No significant arthritic change. This document has been electronically signed by: Delia Singh on 07/08/2024 08:44:29
--- NOTE | ~2024-07-07 | XR_ITS ---
CLINICAL HISTORY: M17.0 - Bilateral primary osteoarthritis of knee 2 view left knee Comparison: None Findings: Bones intact. No dislocations. No significant arthritic change or erosions. No joint effusion. IMPRESSION: 1. No acute findings. This document has been electronically signed by: Delia Singh on 07/08/2024 08:25:14
--- NOTE | ~2024-07-07 | XR_ITS ---
CLINICAL HISTORY: M13.0 - Polyarthritis, unspecified 3 view right shoulder Comparison: None Findings: No acute fracture or dislocation is identified. The glenohumeral and acromioclavicular joint spaces appear preserved. Soft tissue structures appear within normal limits. IMPRESSION: 1. No significant arthritic change in the right shoulder. This document has been electronically signed by: Delia Singh on 07/08/2024 08:18:40
--- NOTE | ~2024-07-07 | XR_ITS ---
CLINICAL HISTORY: M13.0 - Polyarthritis, unspecified 3 view left foot Comparison: None Findings: Bones intact. No dislocations. No significant loss of joint space, osteophytes, or erosions. Soft tissue structures appear within normal limits. IMPRESSION: 1. No significant arthritic change in the left foot. This document has been electronically signed by: Delia Singh on 07/08/2024 08:27:42
--- NOTE | ~2024-07-07 | XR_ITS ---
CLINICAL HISTORY: M13.0 - Polyarthritis, unspecified 3 view left hand and 3 view right hand Comparison: None Findings: Left hand: There is joint space narrowing and marginal osteophyte formation at the DIP and PIP joints. There is also joint space narrowing at the 1st carpometacarpal joint. No acute fracture or dislocation is identified. Soft tissue structures appear within normal limits. Right hand: There is joint space narrowing and marginal osteophyte formation at the DIP and PIP joints. No acute fracture or dislocation is identified. Soft tissue structures appear within normal limits. IMPRESSION: 1. Degenerative changes in bilateral hands consistent with osteoarthritis. This document has been electronically signed by: Delia Singh on 07/08/2024 08:16:35
--- NOTE | ~2024-07-07 | XR_ITS ---
CLINICAL HISTORY: M13.0 - Polyarthritis, unspecified 1 view bilateral knee Comparison: None Findings: Bilateral femorotibial joint spaces are preserved. No acute fracture or dislocation is identified. IMPRESSION: 1. No significant arthritic change in bilateral femorotibial joints. This document has been electronically signed by: Delia Singh on 07/08/2024 08:16:26
--- NOTE | ~2024-07-07 | XR_ITS ---
CLINICAL HISTORY: M13.0 - Polyarthritis, unspecified 3 view left shoulder Comparison: None Findings: No acute fracture or dislocation is identified. Glenohumeral and acromioclavicular joint spaces appear preserved. Soft tissue structures appear within normal limits. IMPRESSION: 1. No significant arthritic change in the left shoulder. This document has been electronically signed by: Delia Singh on 07/08/2024 08:20:33
--- NOTE | ~2024-07-07 | XR_ITS ---
CLINICAL HISTORY: M17.0 - Bilateral primary osteoarthritis of knee 2 view right knee Comparison: None Findings: No fractures or dislocations. No significant loss of joint space, osteophytes, or erosions. No joint effusion. IMPRESSION: 1. No acute findings. This document has been electronically signed by: Delia Singh on 07/08/2024 08:27:05
--- OUTSIDE RECORDS SUMMARY | 2024-07-07 09:30 | XMS_ITS | Data Portability ---
Author Organization [facility], , [facility] Address [address] [place] [address] Assessment No assessment recorded. Plan of Treatment Reminders Order Date Submit Date Provider Last Modified By Organization Details Last Modified Time Details Appointments None record ed. Lab erythr ocyte sedime ntatio n rate by kadi reza 2018 019 [facility], [address] [place] [address], [address], 9 13:52:42 C-reac tive protei n, quanti tative , serum or plasma 2018 019 [facility], [address] [place] [address], [address], 9 17:45:20 Referral allerg y referr mable tavarez abx allerg ies 2018 019 [email or web address] Pa[facility] Yumiko, [address] [place], [address], 9 15:05:22 physic al therap ist referr al - 73 y/o with hx fibrom yalgia and osteop orosis now with worsen ing pain and tightn ess in the neck, please assess and treat [email or web address] [address] [place], [address], 9 13:11:23 Procedures None record ed. Surgeries None record ed. Imaging XR, cervic al spine 2018 019 [facility] ([facility]), [address], [place], [address], 9 11:45:36 XR, neck - 73 y/o with hx fibrom yalgia and osteop orosis now with worsen ing pain and tightn ess in the neck, please r/o bony abnorm ality 2018 019 [facility]), [address], [place], [address], 9 10:40:07 Medication Orders EpiPen 0.3 mg/0.3 mL inject ion, auto-i njecto r 2018 INTERFACE [id number], [address] [facility], [place], [address], 9 10:45:28 Augmen tin 875 mg-125 mg tablet 2018 019 [email or web address] Not available 9 10:30:27 Patient TargetsNo targets recorded. Patient Instructions Encounter Date Encounter Id Patient Instructions Last Modified By Organization Details Last Modified Time 10/25/2018 [id number] -Keep hydrated -Keep inside with the air conditioning filter -Give this a bit more time - if still having symptoms on Thursday would recommend taking the augmentin at that point in time Not available 10/25/2018 12:15:43 11/22/2018 [id number] -Consider a tria l of D-ribose powder (up to 3 scoops daily) to help with fibromyalgia symptoms -Labwork today -X-ray today -Make appointment for physical therapy of the neck -Plan on wellness visit in 2 months Not available 11/22/2018 10:49:05 01/13/2019 [id number] -STOP amoxicilli n - think this rash is due to that -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 Calderon, please ask [...] to go) Not available 01/13/2019 09:42:22 02/28/2019 [id number] After a discussion of treatment options, which [...] e sedim entat ion rate by adeline amadoro d sed rate 4.0 0.0-15 .0 Not Available [address], [address], 11/24/2018 13:52:42 11/25/19 19 11/24/2018 gluco se, QN [mass /volu me], serum or plasm a glucose 78 mg/dL 70-100 Not Available [address], [address], 11/24/2018 15:11:40 11/25/19 19 11/24/2018 C-jose luis ctive prote in, quant itati ve, serum or plasm a C-reactive protein -quant <2.0 mg/L 0.0-9. 0 < Not Available [address], [address], 11/24/2018 17:45:20 12/31/19 19 12/31/2018 T4, free, serum free T4 0.98 NG/dL 0.75-1 .54 Not Available [address], [address], 12/31/2018 11:06:45 12/31/19 19 12/31/2018 TSH, serum or plasm a TSH 4.02 uIU/m L 0.50-6 .00 The Ameri can Colle ge of Endoc rinol ogy and Ameri can Thyro id Assoc iatio n recom mend goal TSH value s betwe en 0.4-4 .0 mIU/m L. Not Available [address], [address], 12/31/2018 11:06:45 01/25/20 19 01/24/2019 refer ence lab test panel tests requested PROSTA GLANDI N D2,F2 (RANDO M URINE) (FPD24 ) Not Available [facility] (Out[facility]) [address] [place] [address], [id number], 01/24/2019 11:18:12 01/25/20 19 01/24/2019 refer ence lab test panel specimen/tub e type URINE Not Available [facility] ([facility]) [address] [place] [address], [id number], 01/24/2019 11:18:12 01/25/20 19 01/24/2019 refer ence lab test panel request received Reque st recei saad. A separ ate order for the reque sted test will be gener ated by the labor atory . Not Available [facility] (Outpatient) [address] [place] [address], [address], 01/24/2019 11:18:12 01/25/20 19 01/24/2019 CBC w/ auto diff WBC 4.35 K/uL 3.40-1 1.20 Not Available [facility] ([facility]) [address] [place] [address], [address], 01/24/2019 13:45:18 01/25/20 19 01/24/2019 CBC w/ auto diff RBC 5.29 M/uL 3.80-4 .80 high Not Available [facility]) [address] [place], [address], 01/24/2019 13:45:18 01/25/20 19 01/24/2019 CBC w/ auto diff HGB 15.1 g/dL 12.0-1 5.0 high Not Available [facility] ([facility]) [address] [place], [address], 01/24/2019 13:45:18 01/25/20 19 01/24/2019 CBC w/ auto diff HCT 44.8 % 36.0-4 6.0 Not Available [facility]) [address] [place], [address], 01/24/2019 13:45:18 01/25/20 19 01/24/2019 CBC w/ auto diff plt 231 K/uL 130-40 0 Not Available [facility] [address] [place], [address], 01/24/2019 13:45:18 01/25/20 19 01/24/2019 CBC w/ auto diff MCV 84.7 fL 79.0-9 8.0 Not Available [facility] [address] [place], [address], 01/24/2019 13:45:18 01/25/20 19 01/24/2019 CBC w/ auto diff MCH 28.5 pg 27.0-3 4.8 Not Available [facility] [address] [place], [address], 01/24/2019 13:45:18 01/25/20 19 01/24/2019 CBC w/ auto diff MCHC 33.7 g/dL 31.5-3 6.0 Not Available [facility] [address] [place], [address], 01/24/2019 13:45:18 01/25/20 19 01/24/2019 CBC w/ auto diff RDW 13.3 % 10.8-1 4.6 Not Available [facility] [address] [place], [address], 01/24/2019 13:45:18 01/25/20 19 01/24/2019 CBC w/ auto diff MPV 11.8 fL 9.4-12 .4 Not Available [facility] [address] [place], [address], 01/24/2019 13:45:18 01/25/20 19 01/24/2019 CBC w/ auto diff NRBC 0.00 /100_ WBCs 0.00 Not Available [facility] [address] [place], [address], 01/24/2019 13:45:18 01/25/20 19 01/24/2019 CBC w/ auto diff absolute NRBC 0.00 K/uL 0.00 Not Available [facility] [address] [place], [address], 01/24/2019 13:45:18 01/25/20 19 01/24/2019 CBC w/ auto diff diff method Auto Not Available [facility] [address] [place], [address], 01/24/2019 13:45:18 01/25/20 19 01/24/2019 CBC w/ auto diff neuts 57.8 % 45.30- 77.70 Not Available [facility] [address] [place], [address], 01/24/2019 13:45:18 01/25/20 19 01/24/2019 CBC w/ auto diff lymphs 29.4 % 12.30- 39.70 Not Available [facility] [address] [place], [address], 01/24/2019 13:45:18 01/25/20 19 01/24/2019 CBC w/ auto diff monos 8.5 % 4.10-1 2.80 Not Available [facility] [address] [place], [address], 01/24/2019 13:45:18 01/25/20 19 01/24/2019 CBC w/ auto diff eos 3.4 % 0-7.2 Not Available [facility] ([facility] [address] [place], [address], 01/24/2019 13:45:18 01/25/20 19 01/24/2019 CBC w/ auto diff basos 0.7 % 0-2.80 Not Available [facility] [address] [place], [address], 01/24/2019 13:45:18 01/25/20 19 01/24/2019 CBC w/ auto diff granulocytes , immature (%) 0.2 % 0.0-0. 9 Not Available [facility] [address] [place], [address], 01/24/2019 13:45:18 01/25/20 19 01/24/2019 CBC w/ auto diff absolute neuts 2.51 K/uL 1.40-7 .70 Not Available [facility] [address] [place], [address], 01/24/2019 13:45:18 01/25/20 19 01/24/2019 CBC w/ auto diff absolute lymphs 1.28 K/uL 0.60-3 .20 Not Available [facility] ([facility] [address] [place], [address], 01/24/2019 13:45:18 01/25/20 19 01/24/2019 CBC w/ auto diff absolute monos 0.37 K/uL 0.11-0 .59 Not Available [facility] ([facility] [address] [place], [address], 01/24/2019 13:45:18 01/25/20 19 01/24/2019 CBC w/ auto diff absolute eos 0.15 K/uL 0.01-0 .50 Not Available [facility] ([facility]) [address] [place], [address], 01/24/2019 13:45:18 01/25/20 19 01/24/2019 CBC w/ auto diff absolute basos 0.03 K/uL 0.00-0 .08 Not Available [facility] ([facility]) [address] [place], [address], 01/24/2019 13:45:18 01/25/20 19 01/24/2019 CBC w/ auto diff granulocytes , immature 0.01 K/uL 0.00-0 .05 Not Available [facility] ([facility] [address] [place], [address], 01/24/2019 13:45:18 01/25/20 19 01/24/2019 CMP, serum or plasm a sodium 140 mmol/ L 133-14 6 Not Available [facility] [address] [place], [address], 01/24/2019 14:14:31 01/25/20 19 01/24/2019 CMP, serum or plasm a potassium 4.0 mmol/ L 3.3-5. 1 Not Available [facility] [address] [place], [address], 01/24/2019 14:14:31 01/25/20 19 01/24/2019 CMP, serum or plasm a chloride 103 mmol/ L 96-108 Not Available [facility] [address] [place], [address], 01/24/2019 14:14:31 01/25/20 19 01/24/2019 CMP, serum or plasm a CO2 24 mmol/ L 21-35 Not Available [facility] [address] [place], [address], 01/24/2019 14:14:31 01/25/20 19 01/24/2019 CMP, serum or plasm a BUN 13 mg/dL 6-19 Not Available [facility] [address] [place], [address], 01/24/2019 14:14:31 01/25/20 19 01/24/2019 CMP, serum or plasm a creatinine 0.60 mg/dL 0.5-1. 5 Not Available [facility] [address] [place], [address], 01/24/2019 14:14:31 01/25/20 19 01/24/2019 CMP, serum or plasm a glucose 91 mg/dL 70-99 Not Available [facility] [address] [place], [address], 01/24/2019 14:14:31 01/25/20 19 01/24/2019 CMP, serum or plasm a albumin 4.3 g/dL 3.9-4. 8 Not Available [facility] ([facility]) [address] [place], [address], 01/24/2019 14:14:31 01/25/20 19 01/24/2019 CMP, serum or plasm a total protein 7.2 g/dL 6.5-8. 0 Not Available [facility] ([facility] [address] [place], [address], 01/24/2019 14:14:31 01/25/20 19 01/24/2019 CMP, serum or plasm a calcium 9.5 mg/dL 8.4-10 .3 Not Available [facility] ([facility] [address] [place], [address], 01/24/2019 14:14:31 01/25/20 19 01/24/2019 CMP, serum or plasm a alkaline phosphatase 58 U/L 39-117 Not Available [facility] ([facility]) [address] [place], [address], 01/24/2019 14:14:31 01/25/20 19 01/24/2019 CMP, serum or plasm a total bilirubin 0.5 mg/dL 0.0-1. 2 Not Available [facility] ([facility]) [address] [place], [address], 01/24/2019 14:14:31 01/25/20 19 01/24/2019 CMP, serum or plasm a AST 23 U/L 0-37 Not Available [facility] ([facility]) [address] [place], [address], 01/24/2019 14:14:31 01/25/20 19 01/24/2019 CMP, serum or plasm a ALT 10 U/L 0-40 Not Available [facility] ([facility]) [address] [place], [address], 01/24/2019 14:14:31 01/25/20 19 01/24/2019 CMP, serum or plasm a globulin 2.9 g/dL 1-4.8 Not Available [facility] ([facility]) [address] [place], [address], 01/24/2019 14:14:31 01/25/20 19 01/24/2019 CMP, serum or plasm a eGFR 92 mL/mi n/1.7 3m2 >59 If patie nt is black , multi ply resul t by 1.159 . Estim ated glome rular filtr ation rate calcu lated using the CKD-E PI equat ion. Not Available [facility] ([facility]) [address] [place], [address], 01/24/2019 14:14:31 01/25/20 19 01/24/2019 CMP, serum or plasm a anion gap 17 mmol/ L 10-20 Not Available [facility] ([facility]) [address] [place], [address], 01/24/2019 14:14:31 01/25/20 19 2019 trypt ase, serum tryptase 3.7 NG/mL <11.5 Not Available [facility] ([facility] [address] [place], [address], 2019 19:22:10 01/25/20 19 01/28/2019 N-met hylhi stami ne, 24 HR urine N-methylhist amine/cre, timed urine 116 mcg/g _cr 30-200 Not Available [facility] [address] [place], [address], 01/28/2019 15:56:55 01/25/20 19 01/28/2019 N-met hylhi stami ne, 24 HR urine collection duration, urine 24 H Not Available [facility] ([facility] [address] [place], [address], 01/28/2019 15:56:55 01/25/2001/28/2019 N-met hylhi stami ne, 24 HR urine total volume, ur 1875 mL (NOTE ) ----- ----- ----- ----A SHAHZADITI ONMABLE ATKINSR SUSI Cr---- ----- ----- ----- This test was thalia cooney and its perfo rmanc e dania cteri stics deter mined by [place] Alejandra canas in a sheridan r consi stent with BARB pedroza. This test has not been clear ed or appro saad by the U.S. Food and Drug Admin istra tion. Not Available [facility] ([facility]) [address] [place], [address], 01/28/2019 15:56:55 01/25/2001/28/2019 N-met hylhi stami ne, 24 HR urine creatinine, timed ur (mg/dL) 34 mg/dL Not Available [facility] ([facility]) [address] [place], [address], 01/28/2019 15:56:55 04/24/20 19 04/24/2019 CBC w/ auto diff WBC 6.58 K/uL 3.40-1 1.20 Not Available [facility] ([facility]) [address] [place] [address], [address], 04/24/2019 10:44:54 04/24/20 19 04/24/2019 CBC w/ auto diff RBC 5.43 M/uL 3.80-4 .80 high Not Available [facility] ([facility]) [address] [place], [address], 04/24/2019 10:44:54 04/24/20 19 04/24/2019 CBC w/ auto diff HGB 15.7 g/dL 12.0-1 5.0 high Not Available [facility] ([facility]) [address] [place] [address], [address], 04/24/2019 10:44:54 04/24/20 19 04/24/2019 CBC w/ auto diff HCT 46.6 % 36.0-4 6.0 high Not Available [facility]) [address] [place] [address], [address], 04/24/2019 10:44:54 04/24/20 19 04/24/2019 CBC w/ auto diff plt 256 K/uL 130-40 0 Not Available [facility]) [address] [place] [address], [address], 04/24/2019 10:44:54 04/24/20 19 04/24/2019 CBC w/ auto diff MCV 85.8 fL 79.0-9 8.0 Not Available [facility] ([facility]) [address] [place] [address], [address], 04/24/2019 10:44:54 04/24/20 19 04/24/2019 CBC w/ auto diff MCH 28.9 pg 27.0-3 4.8 Not Available [facility] ([facility]) [address] [place], [address], 04/24/2019 10:44:54 04/24/20 19 04/24/2019 CBC w/ auto diff MCHC 33.7 g/dL 31.5-3 6.0 Not Available [facility] ([facility]) [address] [place], [address], 04/24/2019 10:44:54 04/24/20 19 04/24/2019 CBC w/ auto diff RDW 13.6 % 10.8-1 4.6 Not Available [facility] ([facility] [address] [place], [address], 04/24/2019 10:44:54 04/24/20 19 04/24/2019 CBC w/ auto diff MPV 11.3 fL 9.4-12 .4 Not Available [facility]) [address] [place] [address], [address], 04/24/2019 10:44:54 04/24/20 19 04/24/2019 CBC w/ auto diff NRBC 0.00 /100_ WBCs 0.00 Not Available [facility]) [address] [place] [address], [address], 04/24/2019 10:44:54 04/24/20 19 04/24/2019 CBC w/ auto diff absolute NRBC 0.00 K/uL 0.00 Not Available [facility] ([facility]) [address] [place], [address], 04/24/2019 10:44:54 04/24/20 19 04/24/2019 CBC w/ auto diff diff method Auto Not Available [facility] [address] [place] [address], [address], 04/24/2019 10:44:54 04/24/20 19 04/24/2019 CBC w/ auto diff neuts 74.4 % 45.30- 77.70 Not Available [facility] ([facility]) [address] [place], [address], 04/24/2019 10:44:54 04/24/20 19 04/24/2019 CBC w/ auto diff lymphs 15.7 % 12.30- 39.70 Not Available [facility] ([facility] [address] [place], [address], 04/24/2019 10:44:54 04/24/20 19 04/24/2019 CBC w/ auto diff monos 7.9 % 4.10-1 2.80 Not Available [facility] ([facility]) [address] [place] [address], [address], 04/24/2019 10:44:54 04/24/20 19 04/24/2019 CBC w/ auto diff eos 1.1 % 0-7.2 Not Available [facility] ([facility]) [address] [place] [address], [address], 04/24/2019 10:44:54 04/24/20 19 04/24/2019 CBC w/ auto diff basos 0.6 % 0-2.80 Not Available [facility] ([facility]) [address] [place] [address], [address], 04/24/2019 10:44:54 04/24/20 19 04/24/2019 CBC w/ auto diff granulocytes , immature (%) 0.3 % 0.0-0. 9 Not Available [facility] ([facility]) [address] [place] [address], [address], 04/24/2019 10:44:54 04/24/20 19 04/24/2019 CBC w/ auto diff absolute neuts 4.90 K/uL 1.40-7 .70 Not Available [facility] ([facility]) [address] [place] [address], [address], 04/24/2019 10:44:54 04/24/20 19 04/24/2019 CBC w/ auto diff absolute lymphs 1.03 K/uL 0.60-3 .20 Not Available [facility] ([facility]) [address] [place], [address], 04/24/2019 10:44:54 04/24/20 19 04/24/2019 CBC w/ auto diff absolute monos 0.52 K/uL 0.11-0 .59 Not Available [facility] ([facility]) [address] [place], [address], 04/24/2019 10:44:54 04/24/20 19 04/24/2019 CBC w/ auto diff absolute eos 0.07 K/uL 0.01-0 .50 Not Available [facility] ([facility]) [address] [place], [address], 04/24/2019 10:44:54 04/24/20 19 04/24/2019 CBC w/ auto diff absolute basos 0.04 K/uL 0.00-0 .08 Not Available [facility] ([facility]) [address] [place], [address], 04/24/2019 10:44:54 04/24/20 19 04/24/2019 CBC w/ auto diff granulocytes , immature 0.02 K/uL 0.00-0 .05 Not Available [facility] ([facility] [address] [place], [address], 04/24/2019 10:44:54 04/24/20 19 04/24/2019 PT/IN R PT 11.1 sec 10.2-1 2.9 Not Available [facility] ([facility] [address] [place], [address], 04/24/2019 10:53:55 04/24/20 19 04/24/2019 PT/IN R INR 1.0 0.9-1. 1 Thera peuti c range for oral Vitam in K antag onist s: 2.0-3 .5 Not Available [facility] ([facility]) [address] [place], [address], 04/24/2019 10:53:55 04/24/20 19 04/24/2019 BMP, blood sodium 140 mmol/ L 133-14 6 Not Available [facility] ([facility]) [address] [place], [address], 04/24/2019 10:54:46 04/24/20 19 04/24/2019 BMP, blood chloride 102 mmol/ L 96-108 Not Available [facility] ([facility]) [address] [place], [address], 04/24/2019 10:54:46 04/24/20 19 04/24/2019 BMP, blood potassium 5.1 mmol/ L 3.3-5. 1 Not Available [facility] ([facility]) [address] [place], [address], 04/24/2019 10:54:46 04/24/20 19 04/24/2019 BMP, blood CO2 26 mmol/ L 21-35 Not Available [facility] ([facility]) [address] [place], [address], 04/24/2019 10:54:46 04/24/20 19 04/24/2019 BMP, blood BUN 15 mg/dL 6-19 Not Available [facility] ([facility]) [address] [place], [address], 04/24/2019 10:54:46 04/24/20 19 04/24/2019 BMP, blood creatinine 0.60 mg/dL 0.5-1. 5 Not Available [facility] ([facility]) [address] [place], [address], 04/24/2019 10:54:46 04/24/20 19 04/24/2019 BMP, blood glucose 105 mg/dL 70-99 high Not Available [facility] ([facility]) [address] [place], [address], 04/24/2019 10:54:46 04/24/20 19 04/24/2019 BMP, blood calcium 10.1 mg/dL 8.4-10 .3 Not Available [facility] ([facility]) [address] [place], [address], 04/24/2019 10:54:46 04/24/20 19 04/24/2019 BMP, blood eGFR 91 mL/mi n/1.7 3m2 >59 If patie nt is black , multi ply resul t by 1.159 . Estim ated glome rular filtr ation rate calcu lated using the CKD-E PI equat ion. Not Available [facility] ([facility]) [address] [place], [address], 04/24/2019 10:54:46 04/24/20 19 04/24/2019 BMP, blood anion gap 17 mmol/ L 10-20 Not Available [facility] ([facility]) [address] [place] [address], [address], 04/24/2019 10:54:46 04/24/20 19 04/24/2019 C-jose luis ctive prote in, quant itati ve, serum or plasm a C reactive protein 0.7 mg/L 0.0-4. 0 Not Available [facility] ([facility]) [address] [place], [address], 04/24/2019 10:54:47 04/24/20 19 04/24/2019 lfts (hepa tic panel ) alkaline phosphatase 87 U/L 39-117 Not Available [facility] ([facility]) [address] [place], [address], 04/24/2019 10:54:48 04/24/20 19 04/24/2019 lfts (hepa tic panel ) total bilirubin 0.5 mg/dL 0.0-1. 2 Not Available [facility] ([facility]) [address] [place], [address], 04/24/2019 10:54:48 04/24/20 19 04/24/2019 lfts (hepa tic panel ) direct bilirubin <0.2 mg/dL 0-0.3 Not Available [facility] ([facility] [address] [place], [address], 04/24/2019 10:54:48 04/24/20 19 04/24/2019 lfts (hepa tic panel ) bilirubin (indirect) NOT CALCUL ATED mg/dL 0-1.5 Not Available [facility] ([facility] [address] [place], [address], 04/24/2019 10:54:48 04/24/20 19 04/24/2019 lfts (hepa tic panel ) AST 18 U/L 0-37 Not Available [facility] ([facility]) [address] [place], [address], 04/24/2019 10:54:48 04/24/20 19 04/24/2019 lfts (hepa tic panel ) ALT 10 U/L 0-40 Not Available [facility] ([facility]) [address] [place], [address], 04/24/2019 10:54:48 04/24/20 19 04/24/2019 lfts (hepa tic panel ) total protein 7.7 g/dL 6.5-8. 0 Not Available [facility] ([facility]) [address] [place], [address], 04/24/2019 10:54:48 04/24/20 19 04/24/2019 lfts (hepa tic panel ) albumin 4.5 g/dL 3.9-4. 8 Not Available [facility] ([facility]) [address] [place], [address], 04/24/2019 10:54:48 04/24/20 19 04/24/2019 lfts (hepa tic panel ) globulin 3.2 g/dL 1-4.8 Not Available [facility] ([facility]) [address] [place], [address], 04/24/2019 10:54:48 04/24/20 19 04/24/2019 lfts (hepa tic panel ) A/G ratio 1.41 ratio 1.00-4 .80 Not Available [facility] ([facility]) [address] [place], [address], 04/24/2019 10:54:48 04/24/20 19 04/24/2019 eryth rocyt e sedim entat ion rate by weste rgren metho d ESR 7 mm/h 0-30 Not Available [facility] ([facility]) [address] [place], [address], 04/24/2019 11:22:07 07/27/19 20 07/27/2019 vitam in B12, serum vitamin B12 291 pg/mL 232-12 45 Not Available [facility] ([facility]) [address] [place], [address], 07/27/2019 11:04:46 07/27/19 20 07/27/2019 eryth rocyt e sedim entat ion rate by weste rgren metho d ESR 10 mm/h 0-30 Not Available [facility] ([facility]) [address] [place], [address], 07/27/2019 11:29:10 11/25/19 19 11/24/2018 XR, neck OBSERV ATION: EXAM: Cervic al spine, 5 views Compar ed to 2017. Histor y: Fibrom yalgia and osteop [...] carol. POS: [facility] Electr onical ly signed Geno dangelo Physic shane: Samuel martini MD [email or web address] [facility] (Imaging) [address] , [place], [address], 11/25/2018 11:24:03 04/24/20 19 04/24/2019 CT, head, [...] MD - Fax Final result NGUYEN LANGFORD [address] [facility] [address] [place] [address], [address], 04/25/2019 08:25:57 04/24/20 19 04/24/2019 CT, head, w/o contr ast No observ ation record ed. [address], [address], 04/25/2019 08:25:57 04/26/20 19 04/26/2019 XR, cervi jennifer spine OBSERV ATION: EXAM: [...] C6. POS- [facility] Electr onical ly signed Readkylee dangelo Physic shane: Alida bauer [email or web address] [facility] (Imaging) [address], [place], [address], 04/28/2019 12:10:47 08/28/19 21 08/27/2020 XR, wrist , 3 or more view No observ ation record ed. [address] [facility] [address] [place], [address], 08/27/2020 17:05:13 08/28/19 21 08/27/2020 XR, finge r(s), 2 or more view No observ ation record ed. [address] [facility] [address] [place], [address], 08/27/2020 17:05:13 05/14/19 22 06/15/2018 bi mammo gram outsi de (no inter preta tion) This study is for PACS storag e only and not for interp retati on. Final result NGUYEN LANGFORD [address] [facility] [address] [place] [address], [id number], 05/14/2021 12:47:38 05/14/19 22 06/15/2018 bi US breas t outsi de (no inter preta tion) This study is for PACS storag e only and not for interp retati on. Final result NGUYEN LANGFORD [address] [facility] [address] [place] [address], [id number], 05/14/2021 12:47:38 Result Notes None recorded. Problems Name Problem SNOMED Code Status Onset Date Resolution Date Notes Provider Name and Address Organization Details Recorded Time Abdomina l pain 29671935 [place], [address], [facility] [place] 6 13:39:01 Tooth disorder 440100133 Completed 06/20/2014 [place], [address], [facility] [facility] [place] [facility] 13:39:00 Unable to balance [id number] Completed 06/20/2014 [place], [address], [facility] [place] 6 13:39:00 Vertigo 981010218 Active Cyndy Yeager, OVERCOILER [address] [facility] [place], [address], [facility] [place] 6 13:39:00 Osteopor osis 20362147 Active Cyndy Yeager, OVERCOILER [address] [facility] [place], [address], [facility] [place] 6 13:39:00 Hyperlip idemia 21713359 Active Cyndy Yeager, OVERCOILER [address] [place], [place], [address], [facility] [place] 6 13:39:00 Left bundle branch hemibloc k 6628084 Active Cyndy Yeager, FINA [address] [place], [place], [address], [facility] [place] 13:39:00 Contusio n of multiple sites 015541460 Completed 11/21/2014 Cyndy Yeager NP [address] [place], [place], [address], [facility] [place] 6 13:39:01 Knee pain Active Cyndy Yeager NP [address] [place] [address] [place], [place], [address], [facility] [place] 13:39:00 Cellulit is of lower limb 451224615 Completed 11/21/2014 Cyndy Yeager NP [address] [facility] [place], [address], [facility] [place] 6 13:39:00 Allergic reaction 883539400 Active multiple allergies with rash and intense itching to multiple meds, foods, etc Cyndy Yeager NP [address] [place], [place], [address], [facility] [place] 13:39:01 Fibromyo sitis 44913664 Active Cyndy Yeager NP [address] [place], [address], [facility] [place] 6 15:19:01 Cellulit is 705366834 Active Cyndy Yeager NP [address] [place], [address], [facility] [place] 6 13:39:00 Swelling of lower leg 798012131 Active Cyndy Yeager NP [address] [place], [place], [address], [facility] [place] 6 13:46:18 Foot pain 81994829 Active Cyndy Yeager NP [address] [place] [address], [place], [address], [facility] [place] 6 15:19:01 Mixed hyperlip idemia 740409749 Completed 200706/20/2014 Cyndy Yeager NP [address] [place] [address], [place], [address], [facility] [place] 6 13:39:00 Presbyop ia 21906810 Completed 200506/20/2014 Cyndy Yeager NP [address], [place], [address], [facility] [place] 6 13:39:00 Gastroes ophageal reflux disease 113743935 Active 2005 Cyndy Yeager NP [address] [place], [place], [address] 1, [facility] [place] 6 13:39:00 Lateral epicondy litis 370378394 Completed 200603/23/2013 Cyndy Yeager NP [address] [place] [address], [place], [address], [facility] [place] 6 13:39:00 Sprain of ankle and/or foot 330545043 Completed 2009 Cyndy Yeager NP [address] [place], [address], [facility] [place] 6 13:39:01 Anxiety state 809767851 Completed 200606/20/2014 removed per pt request Cnydy Yeager NP [address] [place], [address], [facility] [place] 6 13:39:00 Allergic rhinitis 14098258 Active 2006 Cyndy Yeager NP [address] [place] [address], [place], [address], [facility] [place] 6 13:39:00 Acute pharyngi tis 536494359 Completed 03/23/2013 Cyndy Yeager NP [address] [place], [address], [facility] [place] 6 13:39:00 Left lower quadrant pain 325324707 Completed 03/23/2013 FINA Tillman [place], [place], [address], [facility] [place] 6 13:39:01 Dizzines s 276159179 Completed 03/23/2013 Cyndy Yeager NP [address], [place], [address], [facility] [place] 6 13:39:00 Sciatica 81008957 Active 2005 Cyndy Yeager NP [address] [place] [address], [place], [address], [facility] [place] 6 13:39:00 Blood coagulat ion disorder 46460680 Completed 200702/01/2009 Cyndy Yeager NP [address], [place], [address], [facility] [place] 6 13:39:00 Altered mental status 450449830 Completed 200501/25/2009 Cyndy Yeager NP [facility] [place], [place], [address], [facility] [place] 6 13:39:00 Major depressi on, melancho lic type 948238523 Completed 200606/20/2014 removed per pt request Cyndy Yeager NP [address] [place] [address], [place], [address], [facility] [place] 6 13:39:00 Pain in throat 324226151 Completed 03/23/2013 Cyndy Yeager NP [address] [place], [address], [facility] [place] 6 13:39:00 Pain in throat 274155836 Completed 200601/25/2009 Cyndy Yeager NP [address] [place], [address], [facility] [place] 6 13:39:00 Acute maxillar y sinusiti s 53459106 Completed 200701/25/2009 Cyndy Yeager NP [address] [place] [address], [place], [address], [facility] [place] 6 13:39:00 Generali zed abdomina l pain 053605587 Completed 200501/25/2009 Cyndy Yeager NP [address] [place] [address], [place], [address] 1, [facility] [place] 6 13:39:01 Elevated blood-pr essure reading without diagnosi s of hyperten xochitl 035395423 Active Cyndy Yeager NP [address] [place], [place], [address] 1, [facility] [place] 6 13:39:01 Degenera tive joint disease involvin g multiple joints 623470452 Active 2005 Cyndy Yeager NP [address] [place], [place], [address], [facility] [place] 6 13:39:00 Allergy Completed 200706/20/2014 Cyndy Yeager NP [address] [place], [place], [address], [facility] [place] 6 13:39:01 Malaise and fatigue 927716429 Completed 200501/25/2009 Cyndy Yeager NP [address] [place], [place], [address], [facility] [place] 6 13:39:00 Malaise and fatigue 241417768 Completed 03/23/2013 Cyndy Yeager NP [address] [place], [address], [facility] [place] 6 13:39:00 Cyst of ovary 76908442 Active Cyndy Yeager NP [address] [place], [address], [facility] [place] 6 13:39:00 Headache 67061993 Completed 06/20/2014 Cyndy Yeager NP [address] [place], [place], [address], [facility] [place] 6 13:39:01 Cough 76448102 Completed 03/23/2013 Cyndy Yeager NP [address] [place], [place], [address], [facility] [place] 6 13:39:01 Cough 22572208 Completed 200601/25/2009 Cyndy Yeager NP [address] [place], [place], [address], [facility] [place] 6 13:39:01 Cough variant asthma 614045062 Completed 02/19/2015 per pt not an issue 02/2015 Cyndy Yeager NP [address] [place], [place], [address] 1, [facility] [place] 6 13:39:00 Hordeolu m 930637126 Completed 2009 Cyndy Yeager NP [address] [place], [place], [address], [facility] [place] 6 13:39:00 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 79130625 Active Cyndy Yeager NP [address] [place], [address], [facility] [place] 6 13:39:00 Generali zed anxiety disorder 09508168 Completed 200706/20/2014 removed per pt request Cyndy Yeager NP [address] [place], [address], [facility] [place] 6 13:39:00 Myopia 28933559 Completed 200506/20/2014 Cyndy Yeager NP [address] [place], [address], [facility] [place] 6 13:39:00 Astigmat ism 24204980 Active 2005 Cyndy Yeager NP [address] [place], [address], [facility] [place] 6 13:39:00 Chronic pain syndrome 701042441 Active 2007 Cyndy Yeager NP [address] [place], [place], [address], [facility] [place] 6 13:39:00 Nonvenom ous insect bite of multiple sites 285652699 Completed 200601/25/2009 Cyndy Yeager NP [address] [place], [place], [address], [facility] [place] 6 13:39:01 Abdomina l pain 89736265 Completed 03/23/2013 Cyndy Yeager NP [address] [place], [place], [address], [facility] [place] 6 13:39:01 Panic disorder without agorapho vera 96457788 Completed 200506/20/2014 removed per pt request Cyndy Yeager NP [address] [place], [address], [facility] [place] 6 13:39:00 On examinat ion - a rash Completed 200601/25/2009 Cyndy Yeager NP [facility] [place], [place], [address] 1, [facility] [place] 6 13:39:00 On examinat ion - a rash Completed 03/23/2013 Cyndy Yeager NP [address] [place], [address], [facility] [place] 6 13:39:00 Tension- type headache 927462989 Active FINA Tillman [place], [place], [address] 1, [facility] [place] 6 13:39:00 Electroc ardiogra m abnormal 422745445 Completed 200703/23/2013 [place], [address], [facility] [place] 6 13:39:01 Senile osteopor osis 51523646 Completed 200606/20/2014 Cyndy Yeager NP [address] [facility] [place], [address], [facility] [place] 6 13:39:00 Low back pain 534346751 Completed 200506/20/2014 Cyndy Yeager NP [address] [facility] [place], [address], [facility] [place] 6 13:39:00 Blephari tis 80145085 Completed 200701/25/2009 Cyndy Yeager NP [address] [facility] [place], [address], [facility] [place] 6 13:39:00 Hypocalc emia 8859313 Active 2006 Cyndy Yeager NP [address] [place], [place] [address]Duong, [place], [address], [facility] [place] 6 13:39:00 Primary fibromya lgia syndrome 72081681 Active 2005 Cyndy Yeager NP [address] [place], [place] [address]Duong, [place], [address] 1, [facility] [place] 6 13:39:00 Problem Notes None recorded. Procedures Surgical History Date Name Laterality Status Provider Name and Address Organization Details Recorded Time 02/29/20 19 Cerumen Removal - Irrigation/Lavage completed Angel Butler [facility] 02/28/2019 10:54:13 10/07/19 18 POC Strep Testing completed Jalyn Roque RN [facility] 10/06/2017 09:56:57 09/17/19 16 Medicare Risk for Falls Screen completed Noreen Barrios CMA [facility] 09/17/2015 09:54:14 03/14/20 15 Medicare Wellness Visit completed Tona Castillo LPN [facility] 03/14/2015 08:59:34 08/11/19 15 Treatment and Advice completed Ruthy Markham Ms, PT [address] [place], [address], [facility] [place] 08/10/2014 10:51:38 08/08/19 15 Treatment and Advice completed Ruthy Markham Ms, PT [address] [place], [address], [facility] [place] 08/07/2014 09:30:02 08/04/19 15 Treatment and Advice completed Ruthy Markham Ms, PT [address] [place], [address], [facility] [place] 08/03/2014 10:00:43 06/09/19 15 Post hospital/SNF follow-up/Transit ional Care completed Daniela Quiroz LPN [facility] 06/09/2014 09:00:27 06/09/19 15 Transitional care completed Daniela Quiroz LPN [facility] 06/09/2014 09:00:27 05/04/18 81 Appendectomy completed Cyndy Yeager NP [address] [place], [address], [facility] [place] 02/23/2012 11:47:44 05/04/18 81 Total Hysterectomy completed Not Available [facility] 03/20/2011 06:05:52 05/04/18 76 Oophorectomy completed Cyndy Yeager NP [address] [place], [address], [facility] [place] 02/23/2012 11:47:44 05/04/18 49 Tonsillectomy completed Nguyen Quesada [address] [place], [address], [facility] [place] 11/18/2011 09:03:39 Imaging Results Imaging Date Name Status LastModified by Organiz [facility] Details LastModified Time 11/24/2018 XR, neck completed [facility] (Imaging) [address] [place], [address], 11/25/2018 11:24:03 04/24/2019 CT, head, w/o contrast completed [address] [facility] [address] [place] [address], [address], 04/25/2019 08:25:57 04/24/2019 CT, head, w/o contrast completed [address], [address], 04/25/2019 08:25:57 04/26/2019 XR, cervical spine completed [address] (Imaging) [address] [place], [address], 04/28/2019 12:10:47 08/27/2020 XR, wrist, 3 or more view completed [address] [facility] [address] [place] [address], [address], 08/27/2020 17:05:13 08/27/2020 XR, finger(s), 2 or more view completed [address] [facility] [address] [place] [address], [address], 08/27/2020 17:05:13 06/15/2018 bi mammogram outside (no interpretation ) completed [address] [facility] [address] [place], [address], 05/14/2021 12:47:38 06/15/2018 bi US breast outside (no interpretation ) completed [address] [facility] [address] [place], [address], 05/14/2021 12:47:38 Procedure Notes None recorded. Medical Equipment None Reported. Allergies Allergen ID Allergen Name Allergen Category Reaction Reaction Severity Criticality Documentation Date Start Date Code Code System Note Provider Name and Address Organization Details Recorded Time 350843 egg extract food,medi cation rash Not available Not available 04/14/2014 54727 15 RxNorm Tona Shoemaker LPN [facility], [facility] 4 09:24:29 895725 cow milk allergeni c extract food,medi cation rash Not available Not available 09/18/2014 82009 5 RxNorm Samia Schaeffer RN, BSN [facility], [facility] 6 09:52:13 200225 Lyrica medicatio n rash Not available Not available 03/14/2015 05404 1 RxNorm Tona Castillo LPN [facility], [facility] 5 09:07:18 799603 Reclast medicatio n other Not available Not available 09/17/2015 14018 2 RxNorm swell ing, redne ss R ankle (? react ion) Cyndy Yeager, FINA [address] [facility] [place] [place], 1, [facility] [place] 6 10:07:01 497447 fentanyl medicatio n rash severe Not available 12/12/2015 4337 RxNorm Samia Schaeffer, RN, BSN [facility], [facility] 6 09:53:12 20070510 cyclobenz aprine medicatio n rash Not available Not available 03/11/2017 97124 RxNorm Nguyen Quesada [address] [facility] [place], [place], 1, [facility] [place] 7 11:48:11 267879 wheat preparati on food,medi cation hives moderate Not available 12/31/2017 33406 52 RxNorm Tori Hirsch user, [facility] 8 12:24:07 476557 Iodinated contrast media (substanc e) medicatio n rash moderate Not available 09/01/2018 35318 2004 SNOMED Nguyen Quesada [address] [facility] [place], 1, [facility] [place] 9 09:29:07 693261 Augmentin medicatio n hives rash Not available Not available Not available 02/28/2019 62112 2 RxNorm Angel Butler CMA null, [facility] 9 10:10:42 615312 amoxicill in medicatio n rash Not available Not available 02/28/2019 723 RxNorm Angel Butler CMA [facility], [facility] 9 10:11:19 02268 bupivacai ne medicatio n rash Not available Not available 08/14/2009 1815 RxNorm but can cathy ate lidoc magali Nguyen Quesada [address] [facility] [place], 1, [facility] [place] 6 12:12:42 564 Glycine max (substanc e) environme nt,food,m edication Not available Not available Not available 06/08/2008 96591 5007 SNOMED Not Available [facility] 1 06:05:20 565 Benadryl medicatio n rash Not available Not available 06/08/2008 47426 7 RxNorm Not Available [facility] 1 06:05:20 566 mold extract medicatio n Not available Not available Not available 06/08/2008 11644 8 RxNorm Not Available [facility] 1 06:05:41 567 house dust allergeni c extract environme nt,medica tion rash Not available Not available 06/08/2008 44431 9 RxNorm Not Available [facility] 1 06:05:20 568 codeine medicatio n rash Not available Not available 06/08/2008 2670 RxNorm Not Available [facility] 1 06:05:20 569 Levaquin medicatio n rash Not available Not available 06/08/2008 40550 2 RxNorm Not Available [facility] 1 06:05:20 570 Cefzil medicatio n rash Not available Not available 06/08/2008 76043 1 RxNorm Not Available [facility] 06:05:20 571 Keflex medicatio n rash Not available Not available 06/08/2008 70391 7 RxNorm rash after 33 doses (8d) 6 Cyndy Yeager NP [address] [place] [address], [facility] [place], [address] [place] [address] 6 10:07:01 572 latex environme nt,medica tion rash Not available Not available 06/08/2008 96505 91 RxNorm Not Available [facility] 1 06:05:20 573 erythromy arnold medicatio n rash Not available Not available 06/08/2008 4053 RxNorm Not Available [facility] 1 06:05:20 574 aspirin medicatio n rash Not available Not available 06/08/2008 1191 RxNorm Not Available [facility] 1 06:05:20 575 Biaxin medicatio n rash Not available Not available 06/08/200837142 9 RxNorm Not Available [facility] 1 06:05:20 576 ibuprofen medicatio n rash Not available Not available 06/08/2008 5640 RxNorm Not Available [facility] 1 06:05:20 577 rice food Not available Not available Not available 06/08/2008 00660 UNK Not Available [facility] 1 06:05:20 578 Hymenopte ra allergeni c extract medicatio n rash Not available Not available 06/08/2008 52003 4 RxNorm Not Available [facility] 1 06:05:20 579 Cleocin medicatio n rash Not available Not available 06/08/200849201 2 RxNorm Not Available [facility] 1 06:05:20 580 Tylenol medicatio n Not available Not available Not available 06/08/200838278 3 RxNorm can take 2101 Rashid Lyons MD [address] [place] [address], [facility] [place], [address], [facility] [place] 2 09:49:48 581 Substance with sulfonami de structure and antibacte rial mechanism of action (substanc e) medicatio n rash Not available Not available 06/08/2008 20494 8003 SNOMED Not Available [facility] 1 06:05:20 582 Shellfish (substanc e) food,medi cation rash Not available Not available 06/08/2008 35122 9006 SNOMED Not Available [facility] 1 06:05:20 583 Bactrim medicatio n rash Not available Not available 06/08/2008 01641 9 RxNorm Not Available [facility] 1 06:05:20 584 Product containin g penicilli n (product) medicatio n anaphylax is Not available Not available 06/08/2008 39756 8001 SNOMED but had abx chall enge done by Dr. Nate Andujar in - can cathy ate amox, kefle x, augme ntin- React ed to amoxi cilli n - Nguyen Quesada [address] [facility], [place], [address] , [facility] [place] 9 09:40:16 585 corn extract food,medi cation rash Not available Not available 06/08/2008 59732 08 RxNorm Not Available [facility] 1 06:05:20 586 tetracycl ine medicatio n rash Not available Not available 06/08/2008 11858 RxNorm Not Available [facility] 1 06:05:20 587 caffeine food,medi cation rash Not available Not available 06/08/2008 1886 RxNorm Not Available [facility] 1 06:05:20 Medications Name Sig Start Date [...] at bedtime 03/11 completed not taking JG 02-16-17 JG Not Available Not Available Not Available [...] Not Available multivita min active On hold 09-01-18 JG Not taking 9/12/19 SD Not Available Not Available Not Available [...] Updated DateTime 9 148.59 cm 21.9 kg/m2 01426.8 9 g 88 /min 98.2 [degF] 110 mm[Hg] 70 mm[Hg] Karla Razo LPN [facility] 9 12:01:06 Date Recorded Body height Body mass index (BMI) Body weight Heart rate Systolic blood pressure Diastolic blood pressure Provider Name and Address Organization Details Last Updated DateTime 9 148.59 cm 21.9 kg/m2 74930.5 9 g 80 /min 106 mm[Hg] 60 mm[Hg] Karla Razo LPN [facility] 9 10:34:16 Date Recorded Body height Body mass index (BMI) Body weight Heart rate Systolic blood pressure Diastolic blood pressure Provider Name and Address Organization Details Last Updated DateTime 9 148.59 cm 22.1 kg/m2 25375.4 8 g 88 /min 130 mm[Hg] 72 mm[Hg] Ruthie Guerrier, [facility] 9 09:26:31 Date Recorded Body height Body mass index (BMI) Body weight Heart rate Systolic blood pressure Diastolic blood pressure Provider Name and Address Organization Details Last Updated DateTime 9 148.59 cm 22.2 kg/m2 08106.6 8 g 76 /min 118 mm[Hg] 76 mm[Hg] Angel Butler, [facility] 9 10:15:07 Date Recorded Body temperature Provider Name a mt Address Organization Details Last Updated DateTime 02/28/2019 98.2 [degF] Lexi Hernández PA-C [address] [place], [address], [facility] 02/28/2019 10:41:47 Date Recorded Body height Body mass index (BMI) Body weight Heart rate Systolic blood pressure Diastolic blood pressure Provider Name and Address Organization Details Last Updated DateTime 9 148.59 cm 22.4 kg/m2 09053.2 7 g 80 /min 128 mm[Hg] 84 mm[Hg] Maria E Reyez, [facility] 9 10:08:33 Social History Question Answer Notes LastModified by Organizat ion Details LastModified Time Tobacco Smoking Status Never Smoker 07/11/16 Sheyla Schreiber [employer] [address] [place], [address], [facility] [place] 07/11/2016 11:33:20 Do You Have An Advance [...] With Others With Information not available 05/07/2012 Patient Has Health Care Proxy Signed And In Chart Yes Sergio Boggs Information not available 04/14/2014 MOLST Form Signed And In Chart 03/14/2015 Information not available 03/14/2015 CCM Consent Discussion 10/04/2015 [email or web address] Information not available 10/05/2015 Marital Status Sergio- Flo Information not available 05/07/2012 Mosquito Repellent Used [...] How Much Tobacco Do You Smoke? No Information not available 03/20/2011 What Types Of Sporting Activities Do You Participate In? NONE [facility] Information not available 09/18/2014 General Stress Level High High Due To Health, Sons Graduating, Moving, Fall In May [facility] Information not available 09/18/2014 Do You Use Sunscreen Routinely? Yes [facility] Information not available 09/18/2014 Sex: Unknown Functional [...] & HL & mac degeneration (details) no CA, CVA, DM, no breast or colon cancer Medical History Condition Response Hearing Loss N Anxiety Y CARDIOVASCULAR Y Migraine Headaches Y Skin Cancer Y ENT Y Fibromyalgia Y GASTROINTESTINAL Y Depression Y Osteoporosis Y Gynecological History Statement/Question Response Hysterectomy Y Age at Menarche 14 Date of LMP Obstetrics History GPAL:G 0 P 0 0 0 0 Immunizations Vaccine Type Date Status Note Provider Nam e and Address Organization Details Recorded Time Tdap 2010 completed Floridalma Carbajal [facility] 05/12/2014 12:22:30 Past Encounters Encounter ID Performer Location Encounter Start Date Encounter Closed Date Diagnosis/Indication Diagnosis SNOMED-CT Code Diagnosis ICD10 Code Diagnosis Note [id number] [facility], OFFICE [address] [place] [address] 01/23/2006 10:42:32 05/24/2008 02:02:29 [id number] [facility], OFF[address] [place] [address] 02/06/2006 09:49:57 02/06/2006 14:16:47 [id number] [facility], OFF[address] [place] [address] 02/13/2006 08:58:18 02/13/2006 15:37:40 [id number] [facility], [address] [place] [address] 02/24/2006 10:50:15 02/24/2006 15:11:08 [id number] Physical Therapy, [address] [address] 03/11/2006 11:17:43 05/24/2008 02:02:29 [id number] Physical Therapy, [address] [address] 03/20/2006 09:47:05 05/24/2008 02:02:29 [id number] [facility], OFFICE [address] [place] [address] 03/23/2006 10:57:48 03/24/2006 09:24:07 [id number] Eye Care, [address] [address] 04/16/2006 11:08:54 04/16/2006 16:44:09 [id number] [facility], OFFICE [address] [place] [address] 05/12/2006 09:57:16 05/12/2006 16:37:00 [id number] Radiology , [address] [address] 05/20/2006 11:07:20 05/21/2006 09:24:28 [id number] Radiology , [facility] [address] [place] [address] 05/20/2006 00:00:00 05/24/2008 02:02:29 [id number] [facility], OFFICE [address] [place] [address] 06/19/2006 10:28:52 06/19/2006 14:25:46 [id number] LAB - [facility] [address] [place] [address] 06/19/2006 11:20:27 06/19/2006 11:20:38 [id number] , [facility], OFF[address] [place] [address] 10/01/2006 10:07:34 10/01/2006 11:37:34 [id number] [facility], [facility] [address] [place] [address] 10/01/2006 10:30:42 10/01/2006 17:56:33 [id number] , [facility], OFF[address] [place] [address] 6 10/23/2006 10:50:37 10/23/2006 13:30:29 [id number] , [facility], [address] [place] [address] 6 11/16/2006 13:24:45 11/16/2006 15:35:43 [id number] , [facility], OFFICE [address] [place] [facility] [place] [place] [address] 11/24/2006 16:10:05 11/24/2006 17:20:43 [id number] , [facility], OFF[address] [place] [facility] [place] [address] 6 01/08/2007 13:28:29 01/08/2007 16:04:02 [id number] LAB - C [address] [facility] [place] [address] 01/12/2007 11:02:12 01/12/2007 11:02:34 [id number] , [facility], OFFICE [address] [place] [facility] [place] [address] 6 01/22/2007 15:09:23 01/22/2007 16:55:17 [id number] , [facility], OFFICE [address] [place] [facility] [place] [address] 6 03/10/2007 09:25:56 03/15/2007 15:08:32 [id number] , [facility], OFFICE [address] [place] [facility] [place] [address] 6 04/02/2007 13:38:39 05/24/2008 02:02:29 [id number] , [facility], OFFICE [address] [place] [facility] [place] [address] 6 05/07/2007 16:07:52 05/24/2008 02:02:29 [id number] LAB - [facility] [address] [place] [address] 6 06/02/2007 14:41:59 06/02/2007 14:44:21 [id number] LAB - [facility] [address] [place] [address] 6 06/03/2007 08:10:59 06/03/2007 08:14:54 [id number] FP, C, OFFICE [address] [place] [address] 6 06/09/2007 12:08:11 05/24/2008 02:02:29 [id number] FP, C, OFFICE [address] [place] [address] 6 06/02/2007 13:37:18 05/24/2008 02:02:29 [id number] FP, C, [address] [facility] [place] [address] 06/14/2007 10:49:52 05/24/2008 02:02:29 [id number] , C, OFFICE [address] [place] [address] 6 10/14/2007 10:06:22 05/24/2008 02:02:29 [id number] FP, C, OFF[address] [facility] [place] [address] 6 11/11/2007 10:09:14 05/24/2008 02:02:29 [id number] , C, OFFICE [address] [facility] [address] 12/16/2007 13:02:34 05/24/2008 02:02:29 [id number] FP, C, OFFICE [address] [place] [address] 6 02/17/2008 10:52:21 05/24/2008 02:02:29 [id number] FP, C, OFFICE [address] [place] [address] 04/04/2008 08:58:12 05/24/2008 02:02:29 [id number] FP, C, OFFICE [address] [place] [address] 6 06/08/2008 10:04:34 06/20/2008 10:44:42 [id number] , [facility], OFFICE [address] [place] [facility] [place] [address] 6 10/05/2008 15:49:33 10/10/2008 14:17:31 [id number] , [facility], OFFICE [address] [place] [facility] [place] [address] 6 10/19/2008 10:57:02 10/24/2008 10:47:47 [id number] , [facility], OFFICE [address] [place] [facility] [place] [place] [address] 11/30/2008 09:09:13 12/06/2008 14:40:50 [id number] , [facility], OFF[address] [place] [facility] [place] [address] 6 02/01/2009 10:15:59 02/02/2009 14:02:21 [id number] , [facility], OFF[address] [place] [facility] [place] [address] 6 02/05/2009 09:31:20 02/08/2009 12:06:33 [id number] , [facility], OFFICE [address] [place] [facility] [place] [address] 6 02/15/2009 11:00:36 02/20/2009 15:33:19 [id number] LAB - C [address] [facility] [place] [address] 6 02/05/2009 08:43:03 02/05/2009 09:12:20 [id number] LAB - C [address] [facility] [place] [address] 6 02/14/2009 09:25:28 02/14/2009 09:52:20 [id number] , [facility], OFFICE [address] [place] [facility] [place] [address] 6 03/01/2009 09:23:19 03/06/2009 10:36:28 [id number] , C, OFFICE [address] [place] [facility] [place] [address] 6 04/12/2009 09:38:21 04/17/2009 10:41:14 [id number] [facility] , C [address] [place] [facility] [place] [address] 6 04/23/2009 09:21:02 04/24/2009 13:51:58 [id number] , [facility], OFFICE [address] [place] [facility] [place] [address] 6 04/23/2009 09:57:20 04/25/2009 07:43:24 [id number] , [facility], OFFICE [address] [place] [facility] [place] [address] 6 05/24/2009 08:33:01 05/28/2009 14:53:40 [id number] Radiology , [facility] [address] [place] [address] 06/01/2009 09:37:55 06/04/2009 14:12:15 [id number] , [facility], OFFICE [address] [place] [facility] [place] [address] 6 07/17/2009 10:22:35 07/19/2009 14:48:16 [id number] , [facility], OFFICE [address] [place] [facility] [place] [address] 6 08/14/2009 12:54:09 08/17/2009 14:55:25 [id number] , [facility], OFFICE [address] [place] [facility] [place] [address] 6 08/23/2009 11:40:27 08/28/2009 09:31:47 [id number] , [facility], OFFICE [address] [place] [facility] [place] [address] 6 09/07/2009 12:24:00 09/11/2009 14:48:43 [id number] , [facility], OFFICE [address] [place] [facility] [place] [address] 6 10/19/2009 09:20:29 10/24/2009 14:16:32 [id number] Radiology , [facility] [address] [place] [facility] [place] [address] 08/09/2010 08:13:41 08/12/2010 13:34:53 [id number] , [facility], OFFICE [address] [place] [facility] [place] [address] 6 11/18/2011 08:17:18 11/18/2011 09:15:40 [id number] Rashid Lyons MD , [facility], OFFICE [address] [place] [address] 6 02/06/2012 09:23:15 02/06/2012 11:53:57 [id number] Cyndy Yeager NP , [facility], OFFICE [address] [place] [address] 02/23/2012 10:29:46 02/23/2012 11:53:59 [id number] Nguyen Quesada , [facility], OFFICE [address] [place] [address] 6 03/04/2012 09:39:50 03/04/2012 10:17:47 [id number] Cydney Chavez , [facility], OFFICE [address] [place] [address] 6 05/07/2012 15:33:43 05/07/2012 16:43:05 [id number] Jere Eid MD , [facility], OFFICE [address] [place] [address] 6 05/28/2012 11:24:31 05/28/2012 12:35:08 [id number] Tona Shoemaker LPN , [facility], OFFICE [address] [place] [address] 6 08/17/2012 13:24:08 08/17/2012 13:53:46 [id number] , [facility], OFFICE [address] [place] [address] 6 04/14/2014 09:10:14 04/14/2014 10:20:42 Abdominal pain 37283502 possibly adhesions recent evals within 1 year:neg [...] see back in 2-3 weeks Allergic rhinitis [id number] trail of flonase helped in [place] past therefore try again Tooth disorder 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 dr jj [phone] [facility] note: no answer thinking about going through [facility] for extraction will call to discuss fosamax Unable to balance [id number] PT needed 69 yo F w/ multiple medical problems; has completed PT at [facility] in 2011 for balance but it is an ongoing issue; has fallen; last time ~1 year ago; has history of osteoporos is; needs assessment and strength/g ait management ; known vertigo ?menierre' s Vertigo 100217404 avoids salt neg eply today needs PT for balance trainign and / or ambulatory aids unclear if menierres but she attests to hearing loss and tinnitus; no n/v ?labrinyth vincent in setting of recurent sinusisit brain MRI wnl Dr Hinson ~09/2013 per pt Screening mammography [id number] Many women with early breast cancer have [...] d nipple discharge, especially bloody discharge Osteoporosis 37128130 re viewed treatment options highly unlikely ins to cover inj like boniva or reclast without trying fosamax i will reach out to pt's dentist to review Hyperlipidemia 30160909 per chart, check lipids for new baseline 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; need to review cards records needs framingham score has asa allergy [id number] Cydney Chavez , [facility], [address] [place] [address] 06/09/2014 08:48:34 06/09/2014 10:45:46 Contusion of multiple sites [id number] [id number] Tona Shoemaker LPN , [facility], [address] [place] [address] 06/14/2014 11:48:27 06/14/2014 12:48:32 Concussion 80561591 seeing improvemen t; hopefully symptoms completely resolve in next couple of weeks otherwise may lend itself to post concussive syndrome education provided Fracture of rib 57342257 continues w/ point tenderness ; plan for xray now Whiplash i njury to neck 83970771 69 yo F w/ fall on ice 05/2014 w/ swelling and stiffness of L knee, needs strength training; also with whiplash like injury w/ good rom but stiffness Posterior rhinorrhea 23659738 very significan t on exam today plan for Flonase does not appear to have allergies to it Knee pain 07517427 69 yo F w/ fall on ice 05/2014 w/ swelling and stiffness of L knee, needs strength training; also with whiplash like injury w/ good rom but stiffness [id number] Cyndy Yeager NP , [facility], OFFICE [address] [place] [address] 07/11/2014 10:58:52 07/11/2014 11:50:22 Knee pain 80486908 [id number] , [facility], OFFICE [address] [place] [address] 6 07/19/2014 08:01:38 07/19/2014 09:52:51 Screening mammography 69659432 Many women with early breast cancer have [...] nipple discharge, especially bloody discharge Knee pain 10437104 69 yo F w/ trauma to L knee 06/01/14 from fall with new ankle swelling and a red area x 4-5 day (area outlined) needs US to r/o clot was eval at [facility] but no note, staff requested now trial of icy hot as pt fearful to take anything oral warm compress to area of redness see back sooner if area spreads outside line raise leg nightly compress knee and start PT if unable to tolerate PT may need MRI t/c injections as well as may help during PT tranasisit on period Pain in limb 79084385 [id number] Physical Therapy, [address] [address] 07/24/2014 12:22:31 07/24/2014 14:35:16 Knee pain 46840034 [id number] Margaret Mendoza , [facility], OFFICE [address] [place] [address] 6 08/02/2014 09:07:22 08/02/2014 09:41:05 Erythema [id number] Ddx includes a bruise that's just becoming visible, reactive skin, or early cellulitis . That said, it sounds as though it has been unchanged in size and improved in color since visit with Dr. Cazares. She has been putting compresses on it regularly. She does have a prescripti on for Keflex from her dermatolog ist. [id number] Ruthy Markham Ms, PT Physical Therapy, [address] [address] 08/03/2014 09:09:16 08/03/2014 14:04:20 Knee pain 93583653 [id number] Ruthy Markham Ms, PT Physical Therapy, [address] [address] 6 08/07/2014 08:55:14 08/07/2014 09:42:24 Knee pain 10094450 [id number] Ruthy Markham Ms, PT Physical Therapy, [address] [address] 6 08/10/2014 09:58:12 08/11/2014 07:21:55 Knee pain 01866099 [id number] , [facility], OFFICE [address] [place] [address] 6 08/14/2014 08:55:22 08/14/2014 09:23:57 Knee pain 63219598 69 yo F w/ trauma to L knee 06/01/14 from fall with ongoing red area x 1 mo; has Keflex from derm but not taking it until sees ruby rails developer tomorrow (recommend kelfex 500mg bid x 7 days) (area outlined) she will confirm w/ dr calderon that she can take 07/2014 Doppler NEG was eval at [facility] but no note, staff requested (none received) trial of icy hot as pt fearful to take anything oral warm compress to area of redness see back sooner if area spreads outside line raise leg nightly as unable to tolerate PT -- MRI and ortho now t/c injections as well as may help during PT tranasisit on period Cellulitis of lower limb 989982779 as above concerning in that it is lingering but reassuring that no dvt and not enlargenin g note redness occurred ~07/16 and pt does not hang out outside so this is very unlikely to be a bull's eye/lyme from tick bite (would have resolved by now as well) [id number] Cyndy Yeager NP , [facility], OFFICE [address] [place] [address] 6 09/07/2014 10:35:57 09/07/2014 11:19:05 Cellulitis of lower limb 821085164 Knee pain 39470435 [id number] Ruby Woo , [facility], [address] [place] [address] 09/18/2014 10:09:52 09/18/2014 11:14:50 Postmenopausal state 66837710 Acute uppe r respiratory infection 37573216 Educated patient that URI is a viral [...] new ones, to see Dr Yumiko mcrae. [id number] , [facility], [address] [place] [address] 10/02/2014 11:34:41 10/02/2014 12:41:57 Knee pain 10011371 will wear sleeve and continue PT exercises she is aware that a sleeve can be supportive but may mask ongoing weakness and PT is tello Impairment of balance 593416152 69 yo F w/ a fall in may with L knee pain and worsening balance since this injury; MRI of knee without anatomical disruption , but continues with low back pain and impairment of balance, please help optimize for balance/ga it Environmental allergy 334990980 going for allergy shots and close f/up iwth dr calderon; on cramolyn sodium 5ml seeing yumiko 10/10/14 wt down 7lb in 3months 94lb today Abnormal weight loss 427440643 check alb if quite low ensure/linn st will be needed; pt to reveiw this rec w/ yumiko to make sure this supplement is safe to take [id number] Jalyn Cazares M.D. , [facility], [address] [place] [address] 11/21/2014 10:40:50 11/21/2014 11:57:07 Knee pain 80428398 did not tolerate hinged brace; recommend sleeve; if not covered by her insurance, she will think about buying it over the counter, encouraged PT exercises at home that she learned as she is overwhelme d w/ appts and decided to not f/up with PT at this time History of multiple allergies 551137084 complicate d history and happy to see she is improving s/p allergy shots and has had some wt gain. all good news Abdominal pain 15693771 possibly adhesions recent evals within 1 year:neg ct per pt, neg cscope and egd CT a/p: 09/2014 w/ 3.7cm on R side and her pain is LLQ, no bowel issues; plan for US and GI f/up see back in 2-4 weeks [id number] [facility] [address] [address] 12/14/2014 10:08:46 12/14/2014 11:52:59 Osteoporosis 87558335 [id number] [facility], OFFICE [address] [place] [address] 01/22/2015 13:17:48 01/22/2015 15:44:10 Chronic pain syndrome 446478624 69 yo F w/ complicate d PMH [...] copy of dr hinson's records Abdominal pain 47001216 possibly adhesions but GI eval per pt [...] move it up); see back after US [id number] Jalyn Cazares M.D. , [facility], [address] [place] [address] 02/19/2015 11:37:38 02/19/2015 12:45:13 Chronic pain syndrome 074733967 G89.[address] coleman (out of pocket cost $200) copy of her previsit ppwk put in chart letter for pvta given Abdominal pain 25709048 R10.9 possibly adhesions but GI eval per [...] see back after US 2nd opinion at [facility] and pt will f/up with gi and repeat ct per gi recs [id number] Jalyn Cazares M.D. , [facility], [address] [place] [address] 03/14/2015 08:56:17 03/14/2015 09:57:20 Adult health examination 905874224 Z00.00 see Risk Assessment and Lifestyle Change Counseling section above Counseling 229464482 Z71 .9 Screening for disorder 326551045 Z11.59 Abdominal pain 71220970 R10.9 possibly adhesions but GI eval per [...] 3.7cm), enlarged ovary; periodic surveillan ce, consider THEATRICAL SCENIC DESIGNER eval; no source of left sided painNOT E pt only had abd US, this is labeled wrong. she had to decline the transvag US due to pain 2nd opinion at [facility] if senior education specialist eval on thursday is not revealing Chronic pain syndrome 37 7355189 G89.[address] coleman (out [...] or [facility] if needed in the future [id number] Yony Ruiz MD [facility], [facility] [address] [place] [address] 03/23/2015 07:49:27 03/23/2015 10:03:12 Osteoporosis 37847098 M81.0 -add calcium 500mg by mouth once daily -increase vitamin d to 2000units by mouth once daily in general, 4000units daily 1 week before and after the reclast -continue dairy 3 times daily [id number] Norma Walker , [facility], [address] [place] [address] 06/12/2015 11:16:07 06/12/2015 12:37:21 Fibromyositis 33782395 M79.7 Given multiple allergies, discussion re: medical marijuana as below. Pain in le ft lower limb 205599619 M79.605 Likely related to fall, I agree. Potential options for management going forward as below. Allergic reaction 766938 005 T78.40XD Agree with continuing with Dr. Calderon for allergy shots and intermitte nt assessment s. [id number] Eric Ritter MD , [facility], OFF[address] [place] [address] 06/17/2015 09:15:09 06/17/2015 09:48:52 Acute upper respiratory infection 84080722 J06.9 reassurred cough is minor due to [...] or failure to resolve in 2-4 weeks. [id number] Nguyen Quesada , [facility], OFFICE [address] [place] [address] 6 06/19/2015 11:36:28 06/19/2015 12:15:20 Acute upper respiratory infection 42895256 J06.9 Acute bronchitis 5509506 2 J20.9 Pain in throat 627009389 R07.0 [id number] Norma SOW, [facility], OFFICE [address] [place] [address] 6 07/05/2015 07:56:57 07/05/2015 08:28:12 Cough 81532684 R05 Post-viral cough. No apparent need for antibiotic at this point in time. Backache 591044320 M54.9 [id number] Nguyen SOW, [facility], OFFICE [address] [place] [address] 6 08/16/2015 08:33:34 08/16/2015 09:20:00 Osteoporosis 62519770 M81.0 Will be receiving reclast from [facility], which should help to stabilize bones. Fibromyositis 98905172 M 79.7 May cause delayed pain after falls. Discussion as below. Anxiety 72023250 F41.9 Understand able, given other health issues Recurrent falls 00624353 2 R29.6 Likely related to deconditio hay due to fibromyalg ia; discussed how fear of falling can encourage falls. Migraine 89437081 G43.90 9 Hx migraine and neuralgia. Recommend seeing Dr. Linares as Dr. Hinson is no longer available. [id number] Cyndy Yeager NP FP, [facility], OFFICE [address] [place] [address] 6 09/07/2015 16:52:24 09/08/2015 11:06:29 Cellulitis 117153389 L03.90 [id number] Nguyen Quesada , [facility], OFFICE [address] [place] [address] 6 09/10/2015 11:38:25 09/10/2015 12:28:38 Swelling of lower leg 676846696 R22.41 On R. Pt is on day 3 of cephalexin . Recommend finishing the medication at this point in time as ?if it has improved based on last descriptio n. Recommend also check thyroid and uric acid. [id number] Cyndy Yeager NP , [facility], OFFICE [address] [place] [address] 6 09/17/2015 09:35:06 09/17/2015 10:16:17 Swelling of lower leg 731132610 R22.41 [id number] Cyndy Yeager NP , [facility], OFFICE [address] [place] [address] 6 09/21/2015 09:45:27 09/21/2015 10:53:31 Foot pain 79069534 M79.671 Fibromyositis 27701906 M 79.7 [id number] Nguyen SOW, [facility], OFFICE [address] [place] [address] 6 10/04/2015 09:54:02 10/04/2015 11:07:38 Diarrhea 37157502 R19.7 Given recent antibiotic s, will check for c. dif or other opportunis tic infections . Malaise and fatigue 2717 70454 R53.81 Nonfasting labs today. If everything is normal, may be that the Reclast somehow triggered a fibromyalg ia flare, which is unfortunat e, and we may simply have to wait for this to fade. Pain in lower limb 14368 006 M79.[address] Ding for further assessment of the leg [id number] Nguyen SOW, [facility], OFFICE [address] [place] [address] 6 10/30/2015 08:49:23 10/30/2015 10:11:42 Primary fibromyalgia syndrome 03217601 M79.7 Unclear if reclast set off the fibromaylg ia. 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 Agree with desensitiz ation therapy via PT. Unclear if prednisone will help or not; discussed risks/bene fits and reviewed skilled nursing versus short term side effects. [id number] Nguyen Quesada , [facility], [address] [place] [address] 11/14/2015 11:23:14 11/14/2015 12:27:56 Swelling of lower leg 956520761 R22.41 Will call cardiology office to see if they can do PVD testing on legs; if positive, would get CT angio of legs. Will also check labs and repeat ultrasound of the lower leg. [id number] MD JUANJOSE Lyles, [facility], OFFICE [address] [place] [address] 6 12/12/2015 09:13:37 12/12/2015 10:30:50 Complex regional pain syndrome, type I 88287474 M89.00 [id number] Yony Ruiz MD [facility], [address] [address] 03/21/2016 10:26:58 03/21/2016 11:32:18 Osteoporosis 93537354 M81.0 -bone density testing 08/18, clinic 09/17 Gastroesop hageal reflux disease 568695207 K21.9 Long-term drug therapy 265541639 Z79.899 A repeat DXA a year after the prior exam is indicated due to osteoporos is and treatment with bisphospho nates to evaluate response to therapy. [id number] Nguyen Quesada , [facility], OFFICE [address] [place] [address] 6 04/03/2016 09:14:38 04/03/2016 10:15:43 Cyst of ovary 77332015 N83.201 Primary fi bromyalgia syndrome 30834986 M79.7 I feel reclast set off the fibromaylg ia. Discussion about medication s for this as below. Plan on pt calling me so we can determine the correct medication to use and following up in 6-8 weeks. Over 50% of visit spent discussing current symptoms and plan of treatment [id number] Nguyen Quesada , [facility], [address] [place] [address] 05/14/2016 11:44:20 05/14/2016 12:29:32 Primary fibromyalgia syndrome 34153988 M79.7 I still feel reclast set off the fibromyalg ia. Will plan on starting patient on savella and completeti ng a PA if needed based on meds listed in HPI. If insurance still will not cover, would consider trial of duloxetine . [id number] Yony Ruiz MD [facility], [facility] [address] [place] [address] 06/19/2016 09:36:30 06/19/2016 10:11:46 Osteoporosis 98335948 M81.0 -assess for bone lining changes of the hip, degenerati ve change of spine-bone density testing 08/18, clinic 09/17 Gastroesop hageal reflux disease 724195571 K21.9 Long-term drug therapy [id number] Z79.899 A repeat DXA a year after the prior exam is indicated due to osteoporos is and treatment with bisphospho nates to evaluate response to therapy. [id number] Nguyen Quesada , [facility], OFFICE [address] [place] [address] 06/24/2016 08:58:34 06/24/2016 09:41:25 Fibromyositis 29697895 M79.7 Question if this may simply be worse at this point in time in terms of the all over pain. Hopefully can start the duloxetine sooner rather than later, but financial limitation s are an issue. Degenerati ve joint disease involving multiple joints [id number] M15.9 Per pt discussion with Dr[address] Ruiz, pt would like to go back to rheumatolo gist. She plans to go back to see Dr. Reyes on Thursday to discuss options for her osteoporos is and her neck pain. Neuralgia 16455712 M79.2 New referral placed. [id number] Yony Ruiz MD [facility] [address] [address] 07/11/2016 11:29:40 07/11/2016 12:46:49 Osteoporosis 16542083 M81.0 -calcium supplement , clarify content-da iry 4 servings daily-lizeth min, clarify dose -urine calcium and creatinine to evaluate calcium balance Gastroesop hageal reflux disease 039123509 K21.9 Long-term drug therapy 450862515 Z79.899 A repeat DXA a year after the prior exam is indicated due to osteoporos is and treatment with bisphospho nates to evaluate response to therapy. [id number] Nguyen Quesada , [facility], OFFICE [address] [place] [address] 08/19/2016 09:17:14 08/19/2016 09:59:46 Fibromyositis 73116125 M79.7 Still question if this may simply be worse at this point in time in terms of the all over pain. Hopefully it is not the duloxetine that is causing rash. Plan as below. Neuralgia 86812183 M79.2 Pt to f/u with Dr. Barker. Eruption 949389182 R21 Unclear if due to meds or food or something else. Plan as below. [id number] Nguyen Quesada , [facility], OFFICE [address] [place] [address] 09/01/2016 09:16:49 09/01/2016 10:33:23 Neck pain 97828990 M54.2 Likely sprain on top of fibromyalg ia. Would recommend restarting the duloxetine and scheduling an appointmen t with PT. Eruption 715025124 R21 Resolved. Plan as below. [id number] Christiane Trevino MD PhD Rheumatol vladislav [address] [address] 09/30/2016 08:55:18 09/30/2016 10:11:50 Fibromyalgia 600021409 M79.7 typical fibromyalg ia presentati on. Although [...] Degenerati ve joint disease involving multiple joints 767551123 M15.9 typical OA changes of hands and X-ray showed cervical degenerati ve changes. 1). she declined physical therapy, encourage exercises and instructio n was given; 2). follow up Greater tr ochanteric pain syndrome 7356261 M70.60 tenderness at both greater trochanter . She declined steroid injection and will consider. encourage exercises as instructed . follow up. Dry eyes 205772781 H04.1 29 she has dry eyes and dry mouth for years. history of one miscarriag e with unknown reason. rule out sjogren syndrome, which also can cause fatigue and joint pain. sent SSA/SS. follow up. [id number] Nguyen SOW, [facility], OFFICE [address] [place] [address] 02/16/2017 12:06:26 02/16/2017 12:47:06 Screening mammography 29092612 Z12.31 Edema 143312946 R60.9 More likely venous insufficie ncy given the pattern of swelling and normal chest exam; pt also c known hx of insufficie ncy bilaterall y and only slightly abnormal echo a year ago. Would monitor. [id number] Nguyen SOW, [facility], OFFICE [address] [place] [address] 03/11/2017 11:09:09 03/11/2017 12:03:33 Edema 225898842 R60.9 Echocardio gram unchanged from 2015, hx of venous insufficie ncy. Swelling and pain appear separate at this point, so would focus more on the pain than the swelling, since it sounds like the pain is preventing regular compressio n stocking use. 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 Symptoms are certainly more consistent with underlying issue with nerves than with edema, given that they seem to be independen t of each other. Unfortunat carl pt does not tolerate many medication s at all. Would recommend [id number] Nguyen SOW, [facility], OFFICE [address] [place] [address] 06/01/2017 09:02:59 06/01/2017 09:44:52 Pain in lower limb 02273210 M79.604 Pt was diagnosed with CRPS at one point by one physiatris t. Pt hasn't followed up with the other office, however; they did order a bone scan. Varicose v eins of lower extremity 05003652 I83.893 Recommend supplement ing with Vitamin C to help with healing process afterwards . [id number] Nguyen SOW, [facility], OFFICE [address] [place] [address] 07/29/2017 11:12:53 07/29/2017 12:15:09 Screening mammography 36033628 Z12.31 Acute sinusitis 72402302 J01.90 Subacute sinusitis. Unclear if bacterial given [...] discussing with Dr. Calderon. Peripheral venous insufficiency 54794978 I87.2 Discussion regarding procedure as below. Neoplasm o f uncertain behavior of skin 26208170 D48.5 [id number] FINA Tillman, [facility], OFFICE [address] [place] [address] 10/06/2017 09:38:36 10/06/2017 13:46:41 Acute upper respiratory infection 36088045 J06.9 Educated patient that URI is a [...] resolve in 2-4 weeks. Screening mammography 24 993109 Z12.31 Pain in throat 529732690 R07.0 [id number] Nguyen SOW, [facility], OFFICE [address] [place] [address] 10/21/2017 11:17:16 10/21/2017 14:23:53 Fibromyalgia 726537426 M79.7 Will recheck inflammato ry markers to make sure these are still normal. Discussion as below. Acute uppe r respiratory infection 40722584 J06.9 Improving gradually; may take up to 4 weeks to resolve completely and cough may take up to 6 weeks. Pain in ri ght lower limb 821768470 M79.604 Symptoms consistent with nerve pain, unfortunat carl. Discussion as below. [id number] Nguyen SOW, [facility], OFFICE [address] [place] [address] 12/31/2017 11:54:46 12/31/2017 13:18:10 Screening mammography 96474172 Z12.31 Cyst of ovary 25914563 N 83.201 Will repeat U/S to make sure cyst hasn't changed and still appears normal. Abdominal pain 09537893 R10.9 Keep taking famotidine . Please get allergy testing done by Dr. Calderon for the foods. Can consider FODMAPs diet trial if not a lot of food allergies. [id number] Nguyen SOW, [facility], OFFICE [address] [place] [address] 02/18/2018 08:53:57 02/18/2018 09:47:06 Osteoporosis 74116364 M81.0 Discussed with pt that I don't think this should stop her from getting a mammogram but will put a note on the mammo for staff to be as gentle as possible. Generalize d aches and pains 50019401 R52 Agree with keeping appointmen t wtih the specialist . [id number] Nguyen Quesada , [facility], OFFICE [address] [place] [address] 04/22/2018 14:03:31 04/22/2018 15:04:57 Fibromyositis 25172570 M79.7 Strong suggestion that reclast triggered the fibromyalg ia, unfortunat carl. Left bundl e branch hemiblock 0047967 I44.60 Osteoporosis 77466312 M8 1.0 To trial prolia with Dr. Masters . [id number] , [facility], OFFICE [address] [place] [address] 06/04/2018 11:54:51 06/04/2018 12:49:01 Pain of breast 68817461 N64.4 Will check diagnostic mammogram and breast ultrasound . Rib pain 671527223 R07.8 1 Will check rib and CXR to r/o fracture, pneumonia presenting atypically . Advised to watch for rash as this could be early shingles, she will return to the clinic immediatel y with any presentati on of rash along area of pain. Pt states she cannot tolerate tylenol, NSAIDs. Advised use of topical lidocaine to rib which she has at home. [id number] Briana Grijalva , [facility], OFFICE [address] [place] [address] 08/12/2018 11:23:55 08/12/2018 12:08:53 Abdominal pain 61265833 R10.9 Significan t LLQ tenderness . Question if atypical presentati on of diverticul itis. Given abx allergies would rather hold off on those unless absolutely necessary. [id number] Nguyen Quesada , [facility], OFFICE [address] [place] [address] 09/01/2018 08:44:59 09/01/2018 09:47:36 Eruption 732726833 R21 Improving slowly. Would do a slow taper and have pt also continue with the cetirizine Abdominal pain 91399867 R10.9 Significan t LLQ tenderness previously but CT without good explanatio n. To keep appointmen t with GI as scheduled. [id number] Nguyen Quesada , [facility], OFFICE [address] [place] [address] 09/22/2018 09:56:32 09/22/2018 10:51:31 Dizziness 153283216 R42 EKG is unchanged, rhythm is regular. Given history and findings of orthostasi s today, suspect that pt had drop in BP that led to everything . Plan on fluids, follow-up with cardiology . Foreign body in skin 934 [address]7477 W45.8XXA Removed with forceps. Neck pain 03323323 M54.2 Likely sprain on top of fibromyalg ia. Plan as below. [id number] Nguyen SOW, [facility], OFFICE [address] [place] [address] 10/25/2018 11:50:28 10/25/2018 12:20:58 Acute sinusitis 20263401 J01.90 Low grade sinusitis. Unclear if bacterial given lack of fever, seems more like viral at the moment. Pt is allowed to take augmentin (challenge d by ruby rails developer) . That said, given on the cusp would recommend antibiotic only if not improving by Thursday. [id number] Nguyen SOW, [facility], OFFICE [address] [place] [address] 11/22/2018 10:24:27 11/22/2018 10:52:42 Neck pain 79698856 M54.2 Likely sprain on top of fibromyalg ia. Plan as below. Multiple joint pain 3567 8005 M25.50 [id number] Nguyen SOW, [facility], OFFICE [address] [place] [address] 01/13/2019 09:14:41 01/13/2019 09:49:15 Thyroid hormone borderline low 779355592 R89.1 Will check twice yearly. Eruption 002445503 R21 Improving slowly. Would do a slow taper and have pt also continue with the cetirizine Low back pain 633710496 M54.5 Recommend supportive care, can write script for PT if needed [id number] TERRY Chang, [facility], OFFICE [address] [place] [address] 02/28/2019 09:30:55 02/28/2019 11:08:21 Allergy 069137197 Z91.09 Epipen refilled. Referred to miladis covarrubias ruby rails developer. Impacted c erumen in right ear [id number] 479321 H61.21 Cerumen removed without incident [id number] Evita Cosme PA-C , [facility], OFFICE [address] [place] [address] 04/26/2019 09:50:42 04/26/2019 10:47:42 Neck pain 04644281 M54.2 Neck pain x4 days, no known [...] [place] Nicci Boggs [id number] 67 [facility] 10/25/2018 2 [place] [id number] Nicci Boggs [id number] [facility] 11/22/2018 1 [place] Nicci Boggs [id number] 67 [facility] 11/22/2018 2 [place] [id number] Nicci Boggs [id number] [facility] 01/13/2019 1 [place] Nicci Boggs [id number] [facility] 01/13/2019 2 [place] [id number] Nicci Boggs [id number] [facility] 02/28/2019 1 [place] Nicci Boggs [id number] 67 [facility] 02/28/2019 2 [place] [id number] Nicci Boggs [id number] [facility] 04/26/2019 1 [place] Nicci Boggs [id number] 67 [facility] 04/26/2019 2 [place] [id number] Nicci Boggs [id number] Nicci Ugarte Notes Date Note Type Note [...] likely related to her fibromyalgia. Nguyen Quesada [address] [place] [address], [address], [facility] 10/25/2018 12:18:57 11/22/2018 text/html Pt comes in [...] worried about an abscess. She saw her log haul chain feeder who recommended taking amoxicillin which she finished 11/12. She does feel it helped her jaw some and she is going to be having a root canal next week. Nguyen Quesada [address] [place], [address], [facility] 11/22/2018 10:52:37 01/13/2019 text/html [facility] TSH done at [...] past couple of days. Nguyen Quesada [address] [place], [address], [facility] 01/13/2019 09:44:29 02/28/2019 text/html Pt reports she [...] shortness of breath.Would like to see her ruby rails developer for testing for antibiotic allergies. Has multiple antibiotic allergies. Lexi Hernández PA-C [address] [place], [address], [facility] [place] 02/28/2019 13:50:24 04/26/2019 text/html 74yo female come [...] no bowel/bladder incontinence. Evita Cosme PA-C [address] [place], [address], [facility] 04/26/2019 11:04:30 OBGyn Episode No OBEpisode recorded.
--- OUTSIDE RECORDS SUMMARY | 2024-07-07 09:31 | XMS_ITS | Continuity of Care Document ---
Author Organization [facility] Address [address] [place] [address]- Care Team Providers Care Coal Sampler Name Role Phone Ruma Bravo MD Primary Care Physician Encounter [facility] Date(s): 05/13/24 - 06/12/24 [facility] [address] [place] [address]- Encounter Diagnosis Reactive arthritis(Discharge Diagnosis) - 03/20/21 Attending Physician: Will Wilson Admitting Physician: AdmWill mcdonough Referring Physician: Admtr, Ar8 Encounter Type: Triage Allergies, Adverse Reactions, Alerts [...] Tylenol Active Contrast Dye Active Horses Active caffeine Active Cleocin T Active Fosamax Active Augmentin Active Bactrim Active linezolid Unable to assess criticality Persistent Mild Active Biaxin XL Active Adhesive Bandage rash Act sam Cats Active [place] Active Dogs Active Dust Active Mold Active [...] Refills, Maintenance, 04/06/24 10:54:00 AM EST, Tablet, [facility]/pharmacy #[id number], Partial fill upon patient request [...] EDT, Route to [facility]ically[facility], 150.2, cm, 11/23/23 10:08:00 EDT, Height, 46.6, [...] on: 05/30/19 Sex Sex Representation Female (finding) Cardiology * Event Display: EKG Non BH [...] Event Display: Cardiology Note Office Authored Date: [id number] * Marjorie Adorno: PERFORM Event Display: Cardiology Note Office Authored Date: [id number] Radiology * Event Display: MRI Spine, Non- [...] Care Team Personnel Name: Yin Hsu Position: [facility] Onco RN Member Role: Primary Care Nurse Name: Ruma Bravo MD Position: [facility] Physician - Primary Care Member Role: PCP Address: [address] [place] [address] Telecom: Name: Shikha Rivera RN Position: [facility] RN Member Role: Primary Care Nurse Name: Consuelo Louis RN Position: [facility] RN Member Role: Primary Care Nurse Name: Cherry Olsen MD Position: [facility] [employer] MD Member Role: [employer] Physician Address: [address] [place] [address] [facility] [employer] [place], [place] [address] Telecom: Name: Robert GALLAGHER, Maeve Bauer Position: S [...]
--- OUTSIDE RECORDS SUMMARY | 2024-07-07 09:31 | XMS_ITS | Clinical Summary ---
Author Organization [facility] Address [address] [place] [phone] Phone Care Team Providers Care Aircraft Structure Mechanic Name Role Phone Ruma Bravo MD Primary Care Provider Allergies Active Allergy Reactions Criticality Noted Date Comments Adhesive 07/25/2021 Amoxicillin Hives 09/12/2021 Amoxicillin-Pot Clavulanate 07/26/19 Aspirin 07/25/2021 Atenolol 07/25/2021 Cefprozil 07/25/2021 Cephalexin 09/12/2021 Chicken Derived 09/12/2021 Clarithromycin Hives 09/12/2021 Clindamycin 07/25/2021 Clindamycin Phosphate 09/12/2021 Codeine 07/25/2021 [place] 09/12/2021 Cyclobenzaprine 07/25/2021 Doxycycline 07/25/2021 Egg 09/12/2021 [...] 09/12/2021 Wheat 09/12/2021 Zoledronic Acid 09/12/2021 Medications lisinopriL (PRINIVIL,ZESTR IL) 5 mg tablet Take 1 Tablet by mouth daily. Active omeprazole (PriLOSEC) [address] capsule Take 1 Capsule by mouth daily. Take in am on empty stomach, wait 30 mins and then eat to activate the medication 2 Active ibandronate (BONIVA) 150 mg tablet Take [...] Do not crush or chew. 30 each 5 05/20/19 26 Active Active Problems Problem Noted Date Diagnosed Date Mejias's esophagus without dysplasia 05/21/2024 Diverticulosis 04/07/2024 GERD (gastroesophageal reflux disease) 4 Osteoporosis 04/07/2024 Rectal bleeding 04/07/2024 Rectal pain [...] Encounters Date Type Department Care Team Description 06/27/2024 Telephone [facility] 175 [facility] [address] [address] Toñito Pride MD provider call back 05/20/2024 2:10 PM EST Office Visit [facility] [address] [facility] [address] [address] Toñito Pride MD Generalized abdominal pain (Primary Dx); Gastroesophageal reflux disease with esophagitis, unspecified whether hemorrhage; Mejias's esophagus without dysplasia; History of right hemicolectomy; Abdominal wall pain; 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 Surgical History Surgery Date Site/Laterality Comments APPENDECTOMY PROCEDURE: UT APPENDECTOMY OTHER SURGICAL HISTORY PROCEDURE: UT TOTAL ABDOMINAL HYSTERECT W/WO RMVL TUBE OVARY TONSILLECTOMY PROCEDURE: UT TONSILLECTOMY PRIMARY/SECONDARY <AGE 14 COLONOSCOPY PROCEDURE: HISTORICAL COLONOSCOPY; COMMENT: last in 2013 Jaylyn Bradford OTHER SURGICAL HISTORY PROCEDURE: HISTORY OTHER; COMMENT: skin cancer removed from forehead COLONOSCOPY 08/05/2021 PROCEDURE: HISTORICAL COLONOSCOPY; COMMENT: hot snare polypectomy, large cecal mass- ESOPHAGOGASTRODUODENOSCOPY 08/05/2021 PROCEDURE: UT ESOPHAGOGASTRODUODENOSCOPY TRANSORAL DIAGNOSTIC; COMMENT: esophagitis, hiatal hernia [...] drink = 0.6 oz pur e alcohol) Comments Unknown Sex and Gender Information Value Date Recorded Sex Assigned at Not on file Legal Sex Female 7:07 PM EST Gender Identity Not on file Sexual Orientation Not on file Obstetrics History Last Filed [...] 05/20/2024 2:13 PM EST Plan of Treatment Upcoming Encounters Date Type Department Care Team ([facility] st Contact Info) Description 07/27/2024 12:30 PM EDT Appointment [facility] Endoscopy [address] [place] [phone] Toñito Pride MD 175 [facility] [address] [place] [address] Health Maintenance Due Date Last Done Comments Pneumococcal Vaccine: 50+ Ye ars (1 of 2 - PCV) 1964 Zoster Vaccines (1 of 2) 1964 DTaP,Tdap,and [...] patient's age to complete this topic Meningococcal B Vacine Aged Out No lo nger eligible based on patient's age to complete this topic RSV Immunization Patients Un oli 20 months Aged Out No longer eligible b ased on patient's age to complete this topic Varicella Vaccines Aged Out No longer eligible based on patient's age to complete this topic Procedures Procedure Name Priority Date/Time Associated Diagnosis Comments COLONOSCOPY Routine 08/05/2021 from Last 3 Months or Most Recently Relevant to Health Maintenance Results * Colonoscopy (08/05/2021) Colonoscopy Abstracted, no interpretation Anatomical Region Laterality Modality Other Historical Provider MD HEALTH MAINTENANCE Final Result from Last 3 Months or Most Recently Relevant to Health Maintenance Insurance MEDICARE [facility] Advance Directives Documents on File Type Date Recorded Patient Visual Coordinator Expl anation Health Care Decision (hx) 02/03/2022 AD NGUYỄN DIRECTIVE Health Care Decision (hx) 02/03/2022 AD NGUYỄN DIRECTIVE Health Care Decision (hx) 02/03/2022 AD NGUYỄN DIRECTIVE Health Care Decision (hx) 02/03/2022 AD NGUYỄN DIRECTIVE Health Care Decision (hx) 02/03/2022 AD NGUYỄN DIRECTIVE Care Teams Aircraft Structure Mechanic Relationship Specialty Start Date End Date Ruma Bravo MD [address] [address] PCP - General Internal Medicine 05/21/24
--- OUTSIDE RECORDS SUMMARY | 2024-07-07 09:31 | XMS_ITS | Continuity of Care Document ---
Author Organization [facility] Address [address] [address]- [facility] Name Relationship Address Phone MEG MARTIN spouse Unknown Unavailable -ALEXUS, JAKE child Unknown Unavail able ERIKA RODRIGUES child Unknown Unavailable RAVI, JAKE child Unknown Unavailable Care Team Providers Care Glove Finisher Name Role Phone Lawrence GERBER, Ruma Bauer Primary Care Physician [id number] - [facility]11[facility] [address] [address] Attending Physician: Afsaneh Rosen MD Admitting Physician: Afsaneh Rosen MD Referring Physician: Ruma Bravo MD Encounter Type: Pre Office Visit Allergies, Adverse Reactions, Alerts Substance Criticality Severity Reaction Reaction Severity Status atenolol Active codeine Active amoxicillin Active penicillin Active ibuprofen Active aspirin Active doxycycline 1 High criticality Moderate Active tetracycline Active clindamycin Active erythromycin Active sulfADIAZINE All sulfa drugs A ctive metoprolol Active predniSONE Allergy to sulf a drugs Resolved sulfa drugs Active shellfish Active Benadryl, Topical 2 Active caffeine Active Keflex Active Cefzil Active Tums Active Levaquin Active Tylenol Active Contrast Dye Active Horses Active Latex rash Active Cleocin T Active Fosamax Active Augmentin Active Bactrim Active linezolid Unable to assess criticality Persistent Mild Active Biaxin XL Active Adhesive Bandage rash Act sam Cats Active [place] Active Dogs Active Dust Active Mold Active [...] EDT, [facility], 150.2, cm, 11/23/23 10:08:00 EDT, Height, 46.6, [...] - Primary Care Member Role: PCP Address: [address] [place] [address] Family Medicine - [address] Telecom: Name: Shikha Rivera RN Position: [facility] RN Member Role: Primary Care Nurse Name: Consuelo Louis RN Position: [facility] RN Member Role: Primary Care Nurse Name: Cherry Olsen MD Position: [facility] FOOD PREPARATION WORKER MD Member Role: Lifetime FOOD PREPARATION WORKER [facility]ician [facility] [employer] [place], [place] [address] Telecom: Name: Maeve Jones RN Position: [facility] RN Member Role: Primary Care Nurse Care Team Related Persons Name: MEG MARTIN Name: JAKE RODRIGUES Insurance Providers Guarantor name: NAUN MARTIN Health Plan Information #: 2 Payer: MEDEX Member Number: [id number] Policy Number: NA Group Number: NA Health Plan Information #: 1 Payer: MEDICARE PART B OUTPT Member Number: [id number] Policy Number: NA Group Number: NA
--- OUTSIDE RECORDS SUMMARY | 2024-07-07 09:31 | XMS_ITS | Encounter Summary ---
Author Organization [facility] Address [address] [place] [address] Care Team Providers Care Soda Tester Name Role Phone Ruma Bravo MD Primary Care Provider Reason for Visit * Reason Onset Date Comments provider call back 06/27/2024 Encounter Details Date Type Department Care Team ([facility] st Contact Info) Description 06/27/2024 Telephone Gastroenterology - [place] [address] [facility] [address] [facility] [address] [place] [address] Toñito Pride MD [address] [facility] [address] [place] [address] provider call back Social History Tobacco Use Types Packs/Day Years Used Date Smoking Tobacco: Never Smokeless Tobacco: Never Alcohol Use Standard Drinks/Week Comments No 0 (1 standard drink = 0.6 oz pur e alcohol) Comments Unknown Sex and Gender Information Value Date Recorded Sex Assigned at Not on file Legal Sex Female 7:07 PM EST Gender Identity Not on file Sexual Orientation Not on file documented as of this encounter Progress Notes * Olivia Briones - 06/27/2024 1:34 PM EST scheduled * Alysa Ruth MA - 06/27/2024 1:07 PM EST We received the notes. Spoke to pt and she will proceed with hemorrhoidectomy after colonoscopy andegd is performed. I let her know she has an x-ray order that she can go to the x-ray dept to get itdone anytime. Pt agreed. I let her know we will be calling her to schedule colonoscopy and egd. Perlast office visit in 05/20 please schedule pt for egd+colon [place]. TY! * Afsaneh Young - 06/27/2024 9:08 AM EST Patient calling asking if Dr. Pride received the office notes from Dr. Tirado office [facility] colorectal surgery, [address] [place] [address]. Patient is concerned documented in this encounter Plan of Treatment Upcoming Encounters Date Type Department Care Team (Late st Contact Info) Description 07/27/2024 12:30 PM EDT Appointment [facility] Endoscopy [address] [place] [id number] Toñito Pride MD [address] [facility] [address] [place] [address] documented as of this encounter Visit Diagnoses Not on filedocumented in this encounter Care Teams Soda Tester Relationship Specialty Start Date End Date Ruma Bravo MD [address] [facility] [address] [place] [address] PCP - General Internal Medicine 05/21/24 documented as of this encounter
== END 2024-07-07 08:48 | disposition home or self-care (01) ==
LOC: HO.XRAY 08:47
PROVIDERS: Visit Provider Internal Medicine Rheumatology
DX: M13.0 Polyarthritis, unspecified (principal)
CPT/HCPCS: 73030; 73130; 73560; 73565; 73630

== ENCOUNTER → 2024-07-07 08:55 | Outpatient (BNV) | payer MEDICARE, SELFPAY | PROVIDERS: Visit Provider Radiology Vascular & Interventional Radiology | DX: M19.041 Primary osteoarthritis, right hand (principal); M19.042 Primary osteoarthritis, left hand; M13.0 Polyarthritis, unspecified; M17.0 Bilateral primary osteoarthritis of knee | CPT/HCPCS: 73030; 73130; 73560; 73565; 73630 ==

== ENCOUNTER 2024-07-14 08:31 | Outpatient (AMB) | payer MEDICARE, SELFPAY ==
--- NOTE | 2024-07-14 08:34 | MHC.OFFVIS ---
Vital Signs 07/14/24 08:44 Height 4 ft 11.65 in Weight 108 lb 3.951 oz BMI 21.4 BP 126/70 Blood Pressure Location Lt brachial Position Sitting Pulse 89 Pulse Source Pulse Oximeter Pulse Oximetry (%) 100 Oxygen Delivery Method Room Air Intake Visit Reasons: review results Intake Note: Patient presents today to review results. Allergies Iodinated Contrast Media [IV CONTRAST] Allergy (Severe, Verified 07/14/24 08:44) Rash amoxicillin [AMOXICILLIN] Allergy (Intermediate, Verified 07/14/24 08:44) HIVES aspirin [ASA] Allergy (Intermediate, Verified 07/14/24 08:44) HIVES atenolol [ATENOLOL] Allergy (Intermediate, Verified 07/14/24 08:44) HIVES caffeine [CAFFEINE] Allergy (Intermediate, Verified 07/14/24 08:44) HIVES cat dander [CATS] Allergy (Intermediate, Verified 07/14/24 08:44) HIVES cefprozil [From CEFZIL] Allergy (Intermediate, Verified 07/14/24 08:44) HIVES cephalexin [From KEFLEX] Allergy (Intermediate, Verified 07/14/24 08:44) HIVES clarithromycin [From BIAXIN] Allergy (Intermediate, Verified 07/14/24 08:44) HIVES clindamycin [From CLEOCIN] Allergy (Intermediate, Verified 07/14/24 08:44) HIVES codeine [CODEINE] Allergy (Intermediate, Verified 07/14/24 08:44) HIVES corn [CORN] Allergy (Intermediate, Verified 07/14/24 08:44) HIVES diphenhydramine [From BENADRYL] Allergy (Intermediate, Verified 07/14/24 08:44) HIVES dog dander [DOGS] Allergy (Intermediate, Verified 07/14/24 08:44) HIVES egg [EGGS] Allergy (Intermediate, Verified 07/14/24 08:44) HIVES erythromycin base [From ERYTHROCIN] Allergy (Intermediate, Verified 07/14/24 08:44) ANAPHYLAXIS fentanyl [FENTANYL] Allergy (Intermediate, Verified 07/14/24 08:44) HIVES ghosh [GHOSH] Allergy (Intermediate, Verified 07/14/24 08:44) HIVES horse dander [HORSE DANDER] Allergy (Intermediate, Verified 07/14/24 08:44) HIVES ibuprofen [IBUPROFEN] Allergy (Intermediate, Verified 07/14/24 08:44) HIVES insect venom [MOSQUITO] Allergy (Intermediate, Verified 07/14/24 08:44) HIVES latex [LATEX] Allergy (Intermediate, Verified 07/14/24 08:44) HIVES levofloxacin [From LEVAQUIN] Allergy (Intermediate, Verified 07/14/24 08:44) HIVES metoprolol [METOPROLOL] Allergy (Intermediate, Verified 07/14/24 08:44) HIVES mite-Dermatophagoides farinae, florentin [DUST MITES] Allergy (Intermediate, Verified 07/14/24 08:44) HIVES mold [MOLD] Allergy (Intermediate, Verified 07/14/24 08:44) HIVES nut - unspecified [NUTS] Allergy (Intermediate, Verified 07/14/24 08:44) HIVES Penicillins [PCN] Allergy (Intermediate, Verified 07/14/24 08:44) Anaphylaxis soy [SOY] Allergy (Intermediate, Verified 07/14/24 08:44) HIVES Sulfa (Sulfonamide Antibiotics) [SULFA (SULFONAMIDE ANTIBIOTICS)] Allergy (Intermediate, Verified 07/14/24 08:44) HIVES sulfamethoxazole [From BACTRIM] Allergy (Intermediate, Verified 07/14/24 08:44) HIVES tetracycline [TETRACYCLINE] Allergy (Intermediate, Verified 07/14/24 08:44) HIVES tree and shrub pollen [TREE] Allergy (Intermediate, Verified 07/14/24 08:44) HIVES trimethoprim [From BACTRIM] Allergy (Intermediate, Verified 07/14/24 08:44) HIVES wheat [WHEAT] Allergy (Intermediate, Verified 07/14/24 08:44) HIVES chicken derived Allergy (Mild, Verified 07/14/24 08:44) Unknown vancomycin Allergy (Mild, Verified 07/14/24 08:44) rash all over body clavulanic acid [Augmentin] Allergy (Unknown, Verified 07/14/24 08:44) Unknown mannitol [Reclast] Allergy (Unknown, Verified 07/14/24 08:44) Unknown zoledronic acid [Reclast] Allergy (Unknown, Verified 07/14/24 08:44) Unknown linezolid Allergy (Verified 07/14/24 08:44) Hives prednisone Allergy (Verified 07/14/24 08:44) Rash shellfish derived Allergy (Verified 07/14/24 08:44) Rash doxycycline Adverse Reaction (Severe, Verified 07/14/24 08:44) Rash acetaminophen Adverse Reaction (Verified 07/14/24 08:44) Rash banana Adverse Reaction (Verified 07/14/24 08:44) Rash DUST Allergy (Intermediate, Uncoded 09/19/23 08:51) HIVES FRUIT Allergy (Intermediate, Uncoded 09/19/23 08:51) HIVES MADRIBON Allergy (Intermediate, Uncoded 09/19/23 08:51) HIVES VEGETABLES,FRESH Allergy (Intermediate, Uncoded 09/19/23 08:51) HIVES linezolide Adverse Reaction (Mild, Uncoded 06/07/24 09:04) sick, dizziness, nausea Ivp Dye- Omnipaque Adverse Reaction (Unknown, Uncoded 09/19/23 08:51) rash HPI HPI review results: Details: MS vera Pain in feet is constant. She is having pain in feet and right ankle. Right foot pain is worse than left foot pain. At this time hand pain is tolerable. At different times she has pain in different areas. She also has shoulder and knee discomfort. Shoulder pain occurs with activity. [facility] Medical History Dysphagia Skin cancer of forehead Skin cancer Personal history of COVID-19 Lower extremity edema Hx of sinusitis Osteoporosis Fibromyalgia Left bundle branch block (LBBB) GERD (gastroesophageal reflux disease) Surgical History Hx of right hemicolectomy (01/30/22) Hx of section History of appendectomy Hx of hysterectomy History of esophagogastroduodenoscopy (EGD) Hx of colonoscopy Family History Father Bladder cancer Social History Household Members: Spouse Housing: Apartment Do you presently have visiting nurse or other home services: No Alcohol intake: never Patient Tobacco Use Status: Never used Tobacco Advance Directives Date on File: 08/05/21 service: No Current occupational status: retired Review of Systems Const All systems reviewed & are unremarkable except as noted in HPI and below Physical Exam Vital Signs: Last Vital Signs Pulse 89 07/14/24 08:44 BP 126/70 07/14/24 08:44 Pulse Ox 100 07/14/24 08:44 Oxygen Delivery Method Room Air 07/14/24 08:44 BMI result Body Mass Index 21.4 Const Other: General: Comfortable CVS: RRR Respiratory: clear to auscultation bilaterally. Good respiratory effort Skin: No lesions seen MSK: No tenderness of MCPs or PIP knees. 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 No synovitis in hands. She has normal range of motion of upper extremities but it is slow with pain. Mild Synovitis of left MTPs present with ankle edema present. She has right dorsal foot edema extending to her ankle. She has tenderness of MTPs, ankles and knees. Limited knee flexion 30 degrees bilateral due to pain. I am unable to rotate hips due to pain during exam. 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 Bilateral foot pain specifically localized to MTPs are out of proportion to exam. She has right dorsal foot and ankle edema but it would not contribute to pain. Her workup revealed degenerative changes in her hands with normal inflammatory markers, JENNIFER, anti CCP antibody, rheumatoid factor, and hepatitis and B serologies. Due to pain in feet being out of proportion to exam, I am further working up for inflammatory arthritis with right foot MRI with and without contrast as it will address change clerk with the addition of DMARD therapy. 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 Bilateral shoulder x-rays are normal. Discussed conservative management Code(s): M75.81 - Other shoulder lesions, right shoulder; M75.82 - Other shoulder lesions, left shoulder Category: Medical Plan: PT ordered Return to clinic in 3 months (3) Knee pain, bilateral: Comment: X-rays of bilateral knees are normal. Discussed conservative management. Code(s): M25.561 - Pain in right knee; M25.562 - Pain in left knee Category: Medical Qualifiers: Chronicity: chronic Qualified Code(s): M25.561 - Pain in right knee; M25.562 - Pain in left knee; G89.29 - Other chronic pain Plan: PT ordered for lower extremity strengthening Orders: Orders PT Evaluation and Treatment Today M25.561 - Pain in right knee, M25.562 - Pain in left knee, M75.81 - Other shoulder lesions, right shoulder, M75.82 - Other shoulder lesions, left shoulder MR foot RT wo/w con Today M13.0 - Polyarthritis, unspecified Coding Level of Care Code Est Pt Level 4 (60213) Complex EM visit Add On G2211 Diagnoses Polyarthritis M13.0 Tendinitis of both rotator cuffs M75.81; M75.82 Chronic pain of both knees M25.561; M25.562; G89.29 Chronicity: chronic
[2024-07-14 08:44] VITALS: BP 126/70; PULSE 89; O2SAT 100; BMI 21.4
--- OUTSIDE RECORDS SUMMARY | 2024-07-14 09:07 | XMS_ITS | Data Portability ---
Author Organization [facility], , [facility] Address [address] [place] [address] Assessment No assessment recorded. Plan of Treatment Reminders Order Date Submit Date Provider Last Modified By Organization Details Last Modified Time Details Appointments None record ed. Lab erythr ocyte sedime ntatio n rate by kadi reza 2018 019 [facility], [address] [place] [address], [address], 9 13:52:42 C-reac tive protei n, quanti tative , serum or plasma 2018 019 [facility], [address] [place] [address], [address], 9 17:45:20 Referral allerg y referr mable tavarez abx allerg ies 2018 019 [email or web address] Paxton Yumiko, [address] [place], [address], 9 15:05:22 physic al therap ist referr al - 73 y/o with hx fibrom yalgia and osteop orosis now with worsen ing pain and tightn ess in the neck, please assess and treat [email or web address] [address] [place], [address], 9 13:11:23 Procedures None record ed. Surgeries None record ed. Imaging XR, cervic al spine 2018 019 [facility] (Imaging), [address], [place], [address], 9 11:45:36 XR, neck - 73 y/o with hx fibrom yalgia and osteop orosis now with worsen ing pain and tightn ess in the neck, please r/o bony abnorm ality 2018 019 [facility] ([facility]), [address], [place], [address], 9 10:40:07 Medication Orders EpiPen 0.3 mg/0.3 mL inject ion, auto-i njecto r 2018 INTERFACE [id number], [address] [facility], [place], [address], 9 10:45:28 Augmen tin 875 mg-125 mg tablet 2018 019 [email or web address] Not available 9 10:30:27 Patient TargetsNo targets recorded. Patient Instructions Encounter Date Encounter Id Patient Instructions Last Modified By Organization Details Last Modified Time 10/25/2018 [id number] -Keep hydrated -Keep inside with the air conditioning filter -Give this a bit more time - if still having symptoms on Thursday would recommend taking the augmentin at that point in time Not available 10/25/2018 12:15:43 11/22/2018 [id number] -Consider a tria l of D-ribose powder (up to 3 scoops daily) to help with fibromyalgia symptoms -Labwork today -X-ray today -Make appointment for physical therapy of the neck -Plan on wellness visit in 2 months Not available 11/22/2018 10:49:05 01/13/2019 [id number] -STOP amoxicilli n - think this rash is due to that -Talk to the retail loss prevention officer -When you see Dr. Calderon, please ask [...] to go) Not available 01/13/2019 09:42:22 02/28/2019 [id number] After a discussion of treatment options, which [...] sed rate 4.0 0.0-15 .0 Not Available [address], [address], 11/24/2018 13:52:42 11/25/19 19 11/24/2018 gluco se, QN [mass /volu me], serum or plasm a glucose 78 mg/dL 70-100 Not Available [address], [address], 11/24/2018 15:11:40 11/25/19 19 11/24/2018 C-jose luis ctive prote in, quant itati ve, serum or plasm a C-reactive protein -quant <2.0 mg/L 0.0-9. 0 < Not Available [address], [address], 11/24/2018 17:45:20 12/31/19 19 12/31/2018 T4, free, serum free T4 0.98 NG/dL 0.75-1 .54 Not Available [address], [address], 12/31/2018 11:06:45 12/31/19 19 12/31/2018 TSH, serum or plasm a TSH 4.02 uIU/m L 0.50-6 .00 The Ameri can Colle ge of Endoc rinol ogy and Ameri can Thyro id Assoc iatio n recom mend goal TSH value s betwe en 0.4-4 .0 mIU/m L. Not Available [address], [address], 12/31/2018 11:06:45 01/25/20 19 01/24/2019 refer ence lab test panel tests requested PROSTA GLANDI N D2,F2 (RANDO M URINE) (FPD24 ) Not Available [facility] (Outpatient) [address] [place] [address], [address], 01/24/2019 11:18:12 01/25/20 19 01/24/2019 refer ence lab test panel specimen/tub e type URINE Not Available [facility] (Outpatient) [address] [place] [address], [address], 01/24/2019 11:18:12 01/25/20 19 01/24/2019 refer ence lab test panel request received Reque st recei saad. A separ ate order for the reque sted test will be gener ated by the labor atory . Not Available [facility] (Outpatient) [address] [place] [address], [address], 01/24/2019 11:18:12 01/25/20 19 01/24/2019 CBC w/ auto diff WBC 4.35 K/uL 3.40-1 1.20 Not Available [facility] (Out[facility]) [address] [place] [address], [address], 01/24/2019 13:45:18 01/25/20 19 01/24/2019 CBC w/ auto diff RBC 5.29 M/uL 3.80-4 .80 high Not Available [facility] (Outpatient) [address] [place], [address], 01/24/2019 13:45:18 01/25/20 19 01/24/2019 CBC w/ auto diff HGB 15.1 g/dL 12.0-1 5.0 high Not Available [facility] (Outpatient) [address] [place], [address], 01/24/2019 13:45:18 01/25/20 19 01/24/2019 CBC w/ auto diff HCT 44.8 % 36.0-4 6.0 Not Available [facility] (Outpatient) [address] [place], [address], 01/24/2019 13:45:18 01/25/20 19 01/24/2019 CBC w/ auto diff plt 231 K/uL 130-40 0 Not Available [facility] (Outpatient) [address] [place], [address], 01/24/2019 13:45:18 01/25/20 19 01/24/2019 CBC w/ auto diff MCV 84.7 fL 79.0-9 8.0 Not Available [facility] (Out[facility]) [address] [place], [address], 01/24/2019 13:45:18 01/25/20 19 01/24/2019 CBC w/ auto diff MCH 28.5 pg 27.0-3 4.8 Not Available [facility] (Outpatient) [address] [place], [address], 01/24/2019 13:45:18 01/25/20 19 01/24/2019 CBC w/ auto diff MCHC 33.7 g/dL 31.5-3 6.0 Not Available [facility] (Outpatient) [address] [place], [address], 01/24/2019 13:45:18 01/25/20 19 01/24/2019 CBC w/ auto diff RDW 13.3 % 10.8-1 4.6 Not Available [facility] (Outpatient) [address] [place], [address], 01/24/2019 13:45:18 01/25/20 19 01/24/2019 CBC w/ auto diff MPV 11.8 fL 9.4-12 .4 Not Available [facility] ([facility]) [address] [place], [address], 01/24/2019 13:45:18 01/25/20 19 01/24/2019 CBC w/ auto diff NRBC 0.00 /100_ WBCs 0.00 Not Available [facility] (Outpatient) [address] [place], [address], 01/24/2019 13:45:18 01/25/20 19 01/24/2019 CBC w/ auto diff absolute NRBC 0.00 K/uL 0.00 Not Available [facility] (Outpatient) [address] [place], [address], 01/24/2019 13:45:18 01/25/20 19 01/24/2019 CBC w/ auto diff diff method Auto Not Available [facility] (Out[facility]) [address] [place], [address], 01/24/2019 13:45:18 01/25/20 19 01/24/2019 CBC w/ auto diff neuts 57.8 % 45.30- 77.70 Not Available [facility] (Out[facility]) [address] [place], [address], 01/24/2019 13:45:18 01/25/20 19 01/24/2019 CBC w/ auto diff lymphs 29.4 % 12.30- 39.70 Not Available [facility] (Outpatient) [address] [place], [address], 01/24/2019 13:45:18 01/25/20 19 01/24/2019 CBC w/ auto diff monos 8.5 % 4.10-1 2.80 Not Available [facility] (Outpatient) [address] [place], [address], 01/24/2019 13:45:18 01/25/20 19 01/24/2019 CBC w/ auto diff eos 3.4 % 0-7.2 Not Available [facility] (Out[facility]) [address] [place], [address], 01/24/2019 13:45:18 01/25/20 19 01/24/2019 CBC w/ auto diff basos 0.7 % 0-2.80 Not Available [facility] (Outpatient) [address] [place], [address], 01/24/2019 13:45:18 01/25/20 19 01/24/2019 CBC w/ auto diff granulocytes , immature (%) 0.2 % 0.0-0. 9 Not Available [facility] (Out[facility]) [address] [place], [address], 01/24/2019 13:45:18 01/25/20 19 01/24/2019 CBC w/ auto diff absolute neuts 2.51 K/uL 1.40-7 .70 Not Available [facility] (Outpatient) [address] [place], [address], 01/24/2019 13:45:18 01/25/20 19 01/24/2019 CBC w/ auto diff absolute lymphs 1.28 K/uL 0.60-3 .20 Not Available [facility] (Outpatient) [address] [place], [address], 01/24/2019 13:45:18 01/25/20 19 01/24/2019 CBC w/ auto diff absolute monos 0.37 K/uL 0.11-0 .59 Not Available [facility] (Outpatient) [address] [place], [address], 01/24/2019 13:45:18 01/25/20 19 01/24/2019 CBC w/ auto diff absolute eos 0.15 K/uL 0.01-0 .50 Not Available [facility] (Outpatient) [address] [place], [address], 01/24/2019 13:45:18 01/25/20 19 01/24/2019 CBC w/ auto diff absolute basos 0.03 K/uL 0.00-0 .08 Not Available [facility] (Outpatient) [address] [place], [address], 01/24/2019 13:45:18 01/25/20 19 01/24/2019 CBC w/ auto diff granulocytes , immature 0.01 K/uL 0.00-0 .05 Not Available [facility] (Outpatient) [address] [place], [address], 01/24/2019 13:45:18 01/25/20 19 01/24/2019 CMP, serum or plasm a sodium 140 mmol/ L 133-14 6 Not Available [facility] (Outpatient) [address] [place], [address], 01/24/2019 14:14:31 01/25/20 19 01/24/2019 CMP, serum or plasm a potassium 4.0 mmol/ L 3.3-5. 1 Not Available [facility] (Out[facility]) [address] [place], [address], 01/24/2019 14:14:31 01/25/20 19 01/24/2019 CMP, serum or plasm a chloride 103 mmol/ L 96-108 Not Available [facility] (Out[facility]) [address] [place], [address], 01/24/2019 14:14:31 01/25/20 19 01/24/2019 CMP, serum or plasm a CO2 24 mmol/ L 21-35 Not Available [facility] (Outpatient) [address] [place], [address], 01/24/2019 14:14:31 01/25/20 19 01/24/2019 CMP, serum or plasm a BUN 13 mg/dL 6-19 Not Available [facility] (Outpatient) [address] [place], [address], 01/24/2019 14:14:31 01/25/20 19 01/24/2019 CMP, serum or plasm a creatinine 0.60 mg/dL 0.5-1. 5 Not Available [facility] (Outpatient) [address] [place], [address], 01/24/2019 14:14:31 01/25/20 19 01/24/2019 CMP, serum or plasm a glucose 91 mg/dL 70-99 Not Available [facility] (Outpatient) [address] [place], [address], 01/24/2019 14:14:31 01/25/20 19 01/24/2019 CMP, serum or plasm a albumin 4.3 g/dL 3.9-4. 8 Not Available [facility] (Outpatient) [address] [place], [address], 01/24/2019 14:14:31 01/25/20 19 01/24/2019 CMP, serum or plasm a total protein 7.2 g/dL 6.5-8. 0 Not Available [facility] (Outpatient) [address] [place], [address], 01/24/2019 14:14:31 01/25/20 19 01/24/2019 CMP, serum or plasm a calcium 9.5 mg/dL 8.4-10 .3 Not Available [facility] (Outpatient) [address] [place], [address], 01/24/2019 14:14:31 01/25/20 19 01/24/2019 CMP, serum or plasm a alkaline phosphatase 58 U/L 39-117 Not Available [facility] (Outpatient) [address] [place], [address], 01/24/2019 14:14:31 01/25/20 19 01/24/2019 CMP, serum or plasm a total bilirubin 0.5 mg/dL 0.0-1. 2 Not Available [facility] (Outpatient) [address] [place], [address], 01/24/2019 14:14:31 01/25/20 19 01/24/2019 CMP, serum or plasm a AST 23 U/L 0-37 Not Available [facility] (Outpatient) [address] [place], [address], 01/24/2019 14:14:31 01/25/20 19 01/24/2019 CMP, serum or plasm a ALT 10 U/L 0-40 Not Available [facility] (Outpatient) [address] [place], [address], 01/24/2019 14:14:31 01/25/20 19 01/24/2019 CMP, serum or plasm a globulin 2.9 g/dL 1-4.8 Not Available [facility] (Outpatient) [address] [place], [address], 01/24/2019 14:14:31 01/25/20 19 01/24/2019 CMP, serum or plasm a eGFR 92 mL/mi n/1.7 3m2 >59 If patie nt is black , multi ply resul t by 1.159 . Estim ated glome rular filtr ation rate calcu lated using the CKD-E PI equat ion. Not Available [facility] (Outpatient) [address] [place], [address], 01/24/2019 14:14:31 01/25/20 19 01/24/2019 CMP, serum or plasm a anion gap 17 mmol/ L 10-20 Not Available [facility] (Outpatient) [address] [place], [address], 01/24/2019 14:14:31 01/25/20 19 2019 trypt ase, serum tryptase 3.7 NG/mL <11.5 Not Available [facility] (Outpatient) [address] [place], [address], 2019 19:22:10 01/25/20 19 01/28/2019 N-met hylhi stami ne, 24 HR urine N-methylhist amine/cre, timed urine 116 mcg/g _cr 30-200 Not Available [facility] (Outpatient) [address] [place], [address], 01/28/2019 15:56:55 01/25/20 19 01/28/2019 N-met hylhi stami ne, 24 HR urine collection duration, urine 24 H Not Available [facility] (Outpatient) [address] [place], [address], 01/28/2019 15:56:55 01/25/2001/28/2019 N-met hylhi stami ne, 24 HR urine total volume, ur 1875 mL (NOTE ) ----- ----- ----- ----A SHAHZADITI ONMABLE ATKINSR SUSI Cr---- ----- ----- ----- This test was thalia cooney and its perfo rmanc e dania cteri stics deter mined by Naz[place] Alejandra canas in a sheridan r consi stent with BARB pedroza. This test has not been clear ed or appro saad by the [place]. Food and Drug Admin istra tion. Not Available [facility] (Outpatient) [address] [place], [address], 01/28/2019 15:56:55 01/25/2001/28/2019 N-met hylhi stami ne, 24 HR urine creatinine, timed ur (mg/dL) 34 mg/dL Not Available [facility] (Outpatient) [address] [place], [address], 01/28/2019 15:56:55 04/24/20 19 04/24/2019 CBC w/ auto diff WBC 6.58 K/uL 3.40-1 1.20 Not Available [facility] (Out[facility]) [address] [place] [address], [address], 04/24/2019 10:44:54 04/24/20 19 04/24/2019 CBC w/ auto diff RBC 5.43 M/uL 3.80-4 .80 high Not Available [facility] (Outpatient) [address] [place], [address], 04/24/2019 10:44:54 04/24/20 19 04/24/2019 CBC w/ auto diff HGB 15.7 g/dL 12.0-1 5.0 high Not Available [facility] ([facility]) [address] [place] [address], [address], 04/24/2019 10:44:54 04/24/20 19 04/24/2019 CBC w/ auto diff HCT 46.6 % 36.0-4 6.0 high Not Available [facility] ([facility]) [address] [place] [address], [address], 04/24/2019 10:44:54 04/24/20 19 04/24/2019 CBC w/ auto diff plt 256 K/uL 130-40 0 Not Available [facility] (Out[facility]) [address] [place] [address], [address], 04/24/2019 10:44:54 04/24/20 19 04/24/2019 CBC w/ auto diff MCV 85.8 fL 79.0-9 8.0 Not Available [facility] (Out[facility]) [address] [place] [address], [address], 04/24/2019 10:44:54 04/24/20 19 04/24/2019 CBC w/ auto diff MCH 28.9 pg 27.0-3 4.8 Not Available [facility] (Out[facility]) [address] [place], [address], 04/24/2019 10:44:54 04/24/20 19 04/24/2019 CBC w/ auto diff MCHC 33.7 g/dL 31.5-3 6.0 Not Available [facility] ([facility]) [address] [place], [address], 04/24/2019 10:44:54 04/24/20 19 04/24/2019 CBC w/ auto diff RDW 13.6 % 10.8-1 4.6 Not Available [facility] (Outpatient) [address] [place], [address], 04/24/2019 10:44:54 04/24/20 19 04/24/2019 CBC w/ auto diff MPV 11.3 fL 9.4-12 .4 Not Available [facility] ([facility]) [address] [place] [address], [address], 04/24/2019 10:44:54 04/24/20 19 04/24/2019 CBC w/ auto diff NRBC 0.00 /100_ WBCs 0.00 Not Available [facility] ([facility]) [address] [place] [address], [address], 04/24/2019 10:44:54 04/24/20 19 04/24/2019 CBC w/ auto diff absolute NRBC 0.00 K/uL 0.00 Not Available [facility] (Out[facility]) [address] [place], [address], 04/24/2019 10:44:54 04/24/20 19 04/24/2019 CBC w/ auto diff diff method Auto Not Available [facility] ([facility]) [address] [place] [address], [address], 04/24/2019 10:44:54 04/24/20 19 04/24/2019 CBC w/ auto diff neuts 74.4 % 45.30- 77.70 Not Available [facility] (Outpatient) [address] [place], [address], 04/24/2019 10:44:54 04/24/20 19 04/24/2019 CBC w/ auto diff lymphs 15.7 % 12.30- 39.70 Not Available [facility] (Outpatient) [address] [place], [address], 04/24/2019 10:44:54 04/24/20 19 04/24/2019 CBC w/ auto diff monos 7.9 % 4.10-1 2.80 Not Available [facility] ([facility]) [address] [place] [address], [address], 04/24/2019 10:44:54 04/24/20 19 04/24/2019 CBC w/ auto diff eos 1.1 % 0-7.2 Not Available [facility] ([facility]) [address] [place] [address], [address], 04/24/2019 10:44:54 04/24/20 19 04/24/2019 CBC w/ auto diff basos 0.6 % 0-2.80 Not Available [facility] ([facility]) [address] [place] [address], [address], 04/24/2019 10:44:54 04/24/20 19 04/24/2019 CBC w/ auto diff granulocytes , immature (%) 0.3 % 0.0-0. 9 Not Available [facility] (Out[facility]) [address] [place] [address], [address], 04/24/2019 10:44:54 04/24/20 19 04/24/2019 CBC w/ auto diff absolute neuts 4.90 K/uL 1.40-7 .70 Not Available [facility] ([facility]) [address] [place] [address], [address], 04/24/2019 10:44:54 04/24/20 19 04/24/2019 CBC w/ auto diff absolute lymphs 1.03 K/uL 0.60-3 .20 Not Available [facility] ([facility]) [address] [place], [address], 04/24/2019 10:44:54 04/24/20 19 04/24/2019 CBC w/ auto diff absolute monos 0.52 K/uL 0.11-0 .59 Not Available [facility] ([facility]) [address] [place], [address], 04/24/2019 10:44:54 04/24/20 19 04/24/2019 CBC w/ auto diff absolute eos 0.07 K/uL 0.01-0 .50 Not Available [facility] ([facility]patient) [address] [place], [address], 04/24/2019 10:44:54 04/24/20 19 04/24/2019 CBC w/ auto diff absolute basos 0.04 K/uL 0.00-0 .08 Not Available [facility] ([facility]) [address] [place], [address], 04/24/2019 10:44:54 04/24/20 19 04/24/2019 CBC w/ auto diff granulocytes , immature 0.02 K/uL 0.00-0 .05 Not Available [facility] (Outpatient) [address] [place], [address], 04/24/2019 10:44:54 04/24/20 19 04/24/2019 PT/IN R PT 11.1 sec 10.2-1 2.9 Not Available [facility] ([facility]) [address] [place], [address], 04/24/2019 10:53:55 04/24/20 19 04/24/2019 PT/IN R INR 1.0 0.9-1. 1 Thera peuti c range for oral Vitam in K antag onist s: 2.0-3 .5 Not Available [facility] (Outpatient) [address] [place], [address], 04/24/2019 10:53:55 04/24/20 19 04/24/2019 BMP, blood sodium 140 mmol/ L 133-14 6 Not Available [facility] (Outpatient) [address] [place], [address], 04/24/2019 10:54:46 04/24/20 19 04/24/2019 BMP, blood chloride 102 mmol/ L 96-108 Not Available [facility] (Outpatient) [address] [place], [address], 04/24/2019 10:54:46 04/24/20 19 04/24/2019 BMP, blood potassium 5.1 mmol/ L 3.3-5. 1 Not Available [facility] ([facility]) [address] [place], [address], 04/24/2019 10:54:46 04/24/20 19 04/24/2019 BMP, blood CO2 26 mmol/ L 21-35 Not Available [facility] ([facility]) [address] [place], [address], 04/24/2019 10:54:46 04/24/20 19 04/24/2019 BMP, blood BUN 15 mg/dL 6-19 Not Available [facility] ([facility]) [address] [place], [address], 04/24/2019 10:54:46 04/24/20 19 04/24/2019 BMP, blood creatinine 0.60 mg/dL 0.5-1. 5 Not Available [facility] ([facility]) [address] [place], [address], 04/24/2019 10:54:46 04/24/20 19 04/24/2019 BMP, blood glucose 105 mg/dL 70-99 high Not Available [facility] ([facility]) [address] [place], [address], 04/24/2019 10:54:46 04/24/20 19 04/24/2019 BMP, blood calcium 10.1 mg/dL 8.4-10 .3 Not Available [facility] (Outpatient) [address] [place], [address], 04/24/2019 10:54:46 04/24/20 19 04/24/2019 BMP, blood eGFR 91 mL/mi n/1.7 3m2 >59 If patie nt is black , multi ply resul t by 1.159 . Estim ated glome rular filtr ation rate calcu lated using the CKD-E PI equat ion. Not Available [facility] ([facility]patient) [address] [place], [address], 04/24/2019 10:54:46 04/24/20 19 04/24/2019 BMP, blood anion gap 17 mmol/ L 10-20 Not Available [facility] ([facility]) [address] [place] [address], [address], 04/24/2019 10:54:46 04/24/20 19 04/24/2019 C-jose luis ctive prote in, quant itati ve, serum or plasm a C reactive protein 0.7 mg/L 0.0-4. 0 Not Available [facility] ([facility]) [address] [place], [address], 04/24/2019 10:54:47 04/24/20 19 04/24/2019 lfts (hepa tic panel ) alkaline phosphatase 87 U/L 39-117 Not Available [facility] ([facility]) [address] [place], [address], 04/24/2019 10:54:48 04/24/20 19 04/24/2019 lfts (hepa tic panel ) total bilirubin 0.5 mg/dL 0.0-1. 2 Not Available [facility] ([facility]) [address] [place], [address], 04/24/2019 10:54:48 04/24/20 19 04/24/2019 lfts (hepa tic panel ) direct bilirubin <0.2 mg/dL 0-0.3 Not Available [facility] ([facility]patient) [address] [place], [address], 04/24/2019 10:54:48 04/24/20 19 04/24/2019 lfts (hepa tic panel ) bilirubin (indirect) NOT CALCUL ATED mg/dL 0-1.5 Not Available [facility] ([facility]) [address] [place], [address], 04/24/2019 10:54:48 04/24/20 19 04/24/2019 lfts (hepa tic panel ) AST 18 U/L 0-37 Not Available [facility] ([facility]patient) [address] [place], [address], 04/24/2019 10:54:48 04/24/20 19 04/24/2019 lfts (hepa tic panel ) ALT 10 U/L 0-40 Not Available [facility] ([facility]patient) [address] [place], [address], 04/24/2019 10:54:48 04/24/20 19 04/24/2019 lfts (hepa tic panel ) total protein 7.7 g/dL 6.5-8. 0 Not Available [facility] (Outpatient) [address] [place], [address], 04/24/2019 10:54:48 04/24/20 19 04/24/2019 lfts (hepa tic panel ) albumin 4.5 g/dL 3.9-4. 8 Not Available [facility] (Outpatient) [address] [place], [address], 04/24/2019 10:54:48 04/24/20 19 04/24/2019 lfts (hepa tic panel ) globulin 3.2 g/dL 1-4.8 Not Available [facility] ([facility]patient) [address] [place], [address], 04/24/2019 10:54:48 04/24/20 19 04/24/2019 lfts (hepa tic panel ) A/G ratio 1.41 ratio 1.00-4 .80 Not Available [facility] (Outpatient) [address] [place], [address], 04/24/2019 10:54:48 04/24/20 19 04/24/2019 eryth rocyt e sedim entat ion rate by weste rgren metho d ESR 7 mm/h 0-30 Not Available [facility] (Outpatient) [address] [place], [address], 04/24/2019 11:22:07 07/27/19 20 07/27/2019 vitam in B12, serum vitamin B12 291 pg/mL 232-12 45 Not Available [facility] (Outpatient) [address] [place], [address], 07/27/2019 11:04:46 07/27/19 20 07/27/2019 eryth rocyt e sedim entat ion rate by weste rgren metho d ESR 10 mm/h 0-30 Not Available [facility] (Outpatient) [address] [place], [address], 07/27/2019 11:29:10 11/25/19 19 11/24/2018 XR, neck [...] Geno dangelo Physic shane: Samuel martini MD [email or web address] [facility] (Imaging) [address] , [place], [address], 11/25/2018 11:24:03 04/24/20 19 04/24/2019 CT, head, [...] MD - Fax Final result NGUYEN LANGFORD [address] [facility] [address] [place] [address], [address], 04/25/2019 08:25:57 04/24/20 19 04/24/2019 CT, head, w/o contr ast No observ ation record ed. [address], [address], 04/25/2019 08:25:57 04/26/20 19 04/26/2019 XR, cervi [...] Readkylee dangelo Physic shane: Alida bauer [email or web address] [facility] (Imaging) [address], [place], [address], 04/28/2019 12:10:47 08/28/19 21 08/27/2020 XR, wrist , 3 or more view No observ ation record ed. [address] [facility] [address] [place], [address], 08/27/2020 17:05:13 08/28/19 21 08/27/2020 XR, finge r(s), 2 or more view No observ ation record ed. [address] [facility] [address] [place], [address], 08/27/2020 17:05:13 05/14/19 22 06/15/2018 bi mammo gram outsi de (no inter preta tion) This study is for PACS storag e only and not for interp retati on. Final result NGUYEN LANGFORD [address] [facility] [address] [place] [address], [address], 05/14/2021 12:47:38 05/14/19 22 06/15/2018 bi US breas t outsi de (no inter preta tion) This study is for PACS storag e only and not for interp retati on. Final result NGUYEN LANGFORD [address] [facility] [address] [place] [address], [address], 05/14/2021 12:47:38 Result Notes None recorded. Problems Name Problem SNOMED Code Status Onset Date Resolution Date Notes Provider Name and Address Organization Details Recorded Time Abdomina l pain 21714663 [place], [address], [facility] 6 13:39:01 Tooth disorder 994685558 Completed 06/20/2014 [place], [address], [facility] 6 13:39:00 Unable to balance 477522405 Completed 06/20/2014 [place], [address], [facility] 6 13:39:00 Vertigo 320313146 Active Cyndy Yeager, 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 [address] [facility] [place], [address], [facility] 6 13:39:00 Osteopor osis 65614848 Active Cyndy Yeager, 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 [address] [facility] [place], [address], [facility] 6 13:39:00 Hyperlip idemia 82254742 Active Cyndy Yeager, 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 [address] [place], [place], [address], [facility] 6 13:39:00 Left bundle branch hemibloc k 9184586 Active Cyndy Yeager, FINA [address] [place], [place], [address], [facility] 13:39:00 Contusio n of multiple sites 403794072 Completed 11/21/2014 Cyndy Yeager NP [address] [place], [place], [address], [facility] 6 13:39:01 Knee pain Active Cyndy Yeager NP [address] [place] [address] [place], [place], [address], [facility] 13:39:00 Cellulit is of lower limb 267316529 Completed 11/21/2014 Cyndy Yeager NP [address] [facility] [place], [address], [facility] 6 13:39:00 Allergic reaction 417631663 Active multiple allergies with rash and intense itching to multiple meds, foods, etc Cyndy Yeager NP [address] [place], [place], [address], [facility] 13:39:01 Fibromyo sitis 01268492 Active Cyndy Yeager NP [address] [place], [address], [facility] 6 15:19:01 Cellulit is 692234995 Active Cyndy Yeager NP [address] [place], [address], [facility] 6 13:39:00 Swelling of lower leg 087820485 Active Cyndy Yeager NP [address] [place], [place], [address], [facility] 6 13:46:18 Foot pain 88381163 Active Cyndy Yeager NP [address] [place], [place], [address], [facility] 6 15:19:01 Mixed hyperlip idemia 272015644 Completed 200706/20/2014 Cyndy Yeager NP [address] [place], [place], [address], [facility] 6 13:39:00 Presbyop ia 17078678 Completed 200506/20/2014 Cyndy Yeager NP [address] [place], [place], [address], [facility] 6 13:39:00 Gastroes ophageal reflux disease 040892749 Active 2005 Cyndy Yeager NP [address] [place], [place], [address], [facility] 6 13:39:00 Lateral epicondy litis 752565125 Completed 200603/23/2013 Cyndy Yeager NP [address] [place], [place], [address], [facility] 6 13:39:00 Sprain of ankle and/or foot 199823244 Completed 2009 Cyndy Yeager NP [address] [place], [address], [facility] 6 13:39:01 Anxiety state 193931137 Completed 200606/20/2014 removed per pt request Cyndy Yeager NP [address] [place], [address], [facility] 6 13:39:00 Allergic rhinitis 44545050 Active 2006 Cyndy Yeager NP [address] [place], [place], [address], [facility] 6 13:39:00 Acute pharyngi tis 247378710 Completed 03/23/2013 Cyndy Yeager NP [address] [place], [address], [facility] 6 13:39:00 Left lower quadrant pain 284738816 Completed 03/23/2013 FINA Tillman [place], [place], [address], [facility] 6 13:39:01 Dizzines s 093488936 Completed 03/23/2013 Cyndy Yeager NP [address] [place], [place], [address], [facility] 6 13:39:00 Sciatica 04696011 Active 2005 Cyndy Yeager NP [address] [place], [place], [address], [facility] 6 13:39:00 Blood coagulat ion disorder 90739909 Completed 200702/01/2009 Cyndy Yeager NP [address] [place], [place], [address], [facility] 6 13:39:00 Altered mental status 537096090 Completed 200501/25/2009 Cyndy Yeager NP [facility] [place], [place], [address], [facility] 6 13:39:00 Major depressi on, melancho lic type 840468238 Completed 200606/20/2014 removed per pt request Cyndy Yeager NP [address] [place], [place], [address], [facility] 6 13:39:00 Pain in throat 720424513 Completed 03/23/2013 Cyndy Yeager NP [address] [place], [address], [facility] 6 13:39:00 Pain in throat 866690721 Completed 200601/25/2009 Cyndy Yeager NP [address] [place], [address], [facility] 6 13:39:00 Acute maxillar y sinusiti s 17609114 Completed 200701/25/2009 Cyndy Yeager NP [address] [place], [place], [address], [facility] 6 13:39:00 Generali zed abdomina l pain 443575924 Completed 200501/25/2009 Cyndy Yeager NP [address] [place], [place], [address], [facility] 6 13:39:01 Elevated blood-pr essure reading without diagnosi s of hyperten xochitl 261649677 Active Cyndy Yeager NP [address] [place], [place], [address], [facility] 6 13:39:01 Degenera tive joint disease involvin g multiple joints 187325384 Active 2005 Cyndy Yeager NP [address] [place], [place], [address], [facility] 6 13:39:00 Allergy Completed 200706/20/2014 Cyndy Yeager NP [address] [place], [place], [address], [facility] 6 13:39:01 Malaise and fatigue 389377574 Completed 200501/25/2009 Cyndy Yeager NP [address] [place], [place], [address], [facility] 6 13:39:00 Malaise and fatigue 021800161 Completed 03/23/2013 Cyndy Yeager NP [address] [place], [address], [facility] 6 13:39:00 Cyst of ovary 59187333 Active Cyndy Yeager NP [address] [place], [address], [facility] 6 13:39:00 Headache 39871126 Completed 06/20/2014 Cyndy Yeager NP [address] [place], [place], [address], [facility] 6 13:39:01 Cough 20146153 Completed 03/23/2013 Cyndy Yeager NP [address] [place], [place], [address], [facility] 6 13:39:01 Cough 71422134 Completed 200601/25/2009 Cyndy Yeager NP [address] [place], [place], [address], [facility] 6 13:39:01 Cough variant asthma 826291722 Completed 02/19/2015 per pt not an issue 02/2015 Cyndy Yeager NP [address] [place], [place], [address], [facility] 6 13:39:00 Hordeolu m 901093312 Completed 2009 Cyndy Yeager NP [address] [place], [place], [address], [facility] 6 13:39:00 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 39702524 Active Cyndy Yeager NP [address] [place], [address], [facility] 6 13:39:00 Generali zed anxiety disorder 87907382 Completed 200706/20/2014 removed per pt request Cyndy Yeager NP [address] [place], [address], [facility] 6 13:39:00 Myopia 28396055 Completed 200506/20/2014 Cyndy Yeager NP [address] [place], [address], [facility] 6 13:39:00 Astigmat ism 34874216 Active 2005 Cyndy Yeager NP [address] [place], [address], [facility] 6 13:39:00 Chronic pain syndrome 061535771 Active 2007 Cyndy Yeager NP [address] [place], [place], [address], [facility] 6 13:39:00 Nonvenom ous insect bite of multiple sites 759632613 Completed 200601/25/2009 Cyndy Yeager NP [address] [place], [place], [address], [facility] 6 13:39:01 Abdomina l pain 40614977 Completed 03/23/2013 Cyndy Yeager NP [address] [place], [place], [address], [facility] 6 13:39:01 Panic disorder without agorapho vera 84727865 Completed 200506/20/2014 removed per pt request Cyndy Yeager NP [address] [place], [address], [facility] 6 13:39:00 On examinat ion - a rash Completed 200601/25/2009 Cyndy Yeager NP [facility] [place], [place], [address], [facility] 6 13:39:00 On examinat ion - a rash Completed 03/23/2013 Cyndy Yeager NP [address] [place], [address], [facility] 6 13:39:00 Tension- type headache 241407460 Active FINA Tillman [place], [place], [address], [facility] 6 13:39:00 Electroc ardiogra m abnormal 825881664 Completed 200703/23/2013 [place], [address], [facility] 6 13:39:01 Senile osteopor osis 78887184 Completed 200606/20/2014 Cyndy Yeager NP [address] [facility] [place], [address], [facility] 6 13:39:00 Low back pain 772244732 Completed 200506/20/2014 Cyndy Yeager NP [address] [facility] [place], [address], [facility] 6 13:39:00 Blephari tis 62340659 Completed 200701/25/2009 Cyndy Yeager NP [address] [facility] [place], [address], [facility] 6 13:39:00 Hypocalc emia 8873962 Active 2006 Cyndy Yeager NP [address] [place], [place] [address]Du[address], [place], [address], [facility] 6 13:39:00 Primary fibromya lgia syndrome 69314891 Active 2005 Cyndy Yeager NP [address] [place], [place] [address]Du[address], [place], [address], [facility] 6 13:39:00 Problem Notes None recorded. Procedures Surgical History Date Name Laterality Status Provider Name and Address Organization Details Recorded Time 02/29/20 19 Cerumen Removal - Irrigation/Lavage completed Angel Butler [facility] 02/28/2019 10:54:13 10/07/19 18 POC Strep Testing completed Jalyn Roque RN [facility] 10/06/2017 09:56:57 09/17/19 16 Medicare Risk for Falls Screen completed Noreen Barrios CMA [facility] 09/17/2015 09:54:14 03/14/20 15 Medicare Wellness Visit completed Tona Castillo LPN [facility] 03/14/2015 08:59:34 08/11/19 15 Treatment and Advice completed Ruthy Markham Ms, PT [address] [place], [address], [facility] 08/10/2014 10:51:38 08/08/19 15 Treatment and Advice completed Ruthy Markham Ms, PT [address] [place], [address], [facility] 08/07/2014 09:30:02 08/04/19 15 Treatment and Advice completed Ruthy Markham Ms, PT [address] [place], [address], [facility] 08/03/2014 10:00:43 06/09/19 15 Post hospital/SNF follow-up/Transit ional Care completed Daniela Quiroz LPN [facility] 06/09/2014 09:00:27 06/09/19 15 Transitional care completed Daniela Quiroz LPN [facility] 06/09/2014 09:00:27 05/04/18 81 Appendectomy completed Cyndy Yeager NP [address] [place], [address], [facility] 02/23/2012 11:47:44 05/04/18 81 Total Hysterectomy completed Not Available [facility] 03/20/2011 06:05:52 05/04/18 76 Oophorectomy completed Cyndy Yeager NP [address] [place], [address], [facility] 02/23/2012 11:47:44 05/04/18 49 Tonsillectomy completed Nguyen Quesada [address] [place], [address], [facility] 11/18/2011 09:03:39 Imaging Results Imaging Date Name Status LastModified by Organiz [facility] Details LastModified Time 11/24/2018 XR, neck completed [email or web address] [facility] (Imaging) [address] [place], [address], 11/25/2018 11:24:03 04/24/2019 CT, head, w/o contrast completed [address] [facility] [address] [place] [address], [address], 04/25/2019 08:25:57 04/24/2019 CT, head, w/o contrast completed [address], [address], 04/25/2019 08:25:57 04/26/2019 XR, cervical spine completed [address] (Imaging) [address] [place], [address], 04/28/2019 12:10:47 08/27/2020 XR, wrist, 3 or more view completed [address] [facility] [address] [place] [address], [address], 08/27/2020 17:05:13 08/27/2020 XR, finger(s), 2 or more view completed [address] [facility] [address] [place] [address], [address], 08/27/2020 17:05:13 06/15/2018 bi mammogram outside (no interpretation ) completed [address] [facility] [address] [place], [address], 05/14/2021 12:47:38 06/15/2018 bi US breast outside (no interpretation ) completed [address] [facility] [address] [place], [address], 05/14/2021 12:47:38 Procedure Notes None recorded. Medical Equipment None Reported. Allergies Allergen ID Allergen Name Allergen Category Reaction Reaction Severity Criticality Documentation Date Start Date Code Code System Note Provider Name and Address Organization Details Recorded Time 385366 egg extract food,medi cation rash Not available Not available 04/14/2014 43928 15 RxNorm Tona Shoemaker LPN [facility], [facility] 4 09:24:29 039986 cow milk allergeni c extract food,medi cation rash Not available Not available 09/18/2014 48667 5 RxNorm Samia Schaeffer RN, BSN [facility], [facility] 6 09:52:13 296032 Lyrica medicatio n rash Not available Not available 03/14/2015 87738 1 RxNorm Tona Castillo LPN [facility], [facility] 5 09:07:18 023088 Reclast medicatio n other Not available Not available 09/17/2015 37269 2 RxNorm swell ing, redne ss R ankle (? react ion) Cyndy Yeager, FINA [address] [facility] [place], 1, [facility] 6 10:07:01 362638 fentanyl medicatio n rash severe Not available 12/12/2015 4337 RxNorm Samia Schaeffer, RN, BSN [facility], [facility] 6 09:53:12 20070510 cyclobenz aprine medicatio n rash Not available Not available 03/11/2017 47814 RxNorm Nguyen Quesada [address] [facility] Sund[place]ine [place], [place], 1, [facility] 7 11:48:11 276197 wheat preparati on food,medi cation hives moderate Not available 12/31/2017 67355 52 RxNorm Tori Hirsch user, [facility] 8 12:24:07 261566 Iodinated contrast media (substanc e) medicatio n rash moderate Not available 09/01/2018 34856 2004 SNOMED Nguyen Quesada [address] [facility] [place], [place], 1, [facility] 9 09:29:07 517153 Augmentin medicatio n hives rash Not available Not available Not available 02/28/2019 13231 2 RxNorm Angel Butler CMA null, [facility] 9 10:10:42 810127 amoxicill in medicatio n rash Not available Not available 02/28/2019 723 RxNorm Angel Butler CMA [facility], [facility] 9 10:11:19 27474 bupivacai ne medicatio n rash Not available Not available 08/14/2009 1815 RxNorm but can cathy ate lidoc magali Nguyen Quesada [address] [facility] [place], 1, [facility] 6 12:12:42 564 Glycine max (substanc e) environme nt,food,m edication Not available Not available Not available 06/08/2008 83180 5007 SNOMED Not Available [facility] 1 06:05:20 565 Benadryl medicatio n rash Not available Not available 06/08/2008 99484 7 RxNorm Not Available [facility] 1 06:05:20 566 mold extract medicatio n Not available Not available Not available 06/08/2008 39339 8 RxNorm Not Available [facility] 1 06:05:41 567 house dust allergeni c extract environme nt,medica tion rash Not available Not available 06/08/2008 37199 9 RxNorm Not Available [facility] 1 06:05:20 568 codeine medicatio n rash Not available Not available 06/08/2008 2670 RxNorm Not Available [facility] 1 06:05:20 569 Levaquin medicatio n rash Not available Not available 06/08/2008 68651 2 RxNorm Not Available [facility] 1 06:05:20 570 Cefzil medicatio n rash Not available Not available 06/08/2008 67551 1 RxNorm Not Available [facility] 06:05:20 571 Keflex medicatio n rash Not available Not available 06/08/2008 44301 7 RxNorm rash after 33 doses (8d) 6 Cyndy Yeager NP [address] [place] [address], [facility], [address] [place] [address] 6 10:07:01 572 latex environme nt,medica tion rash Not available Not available 06/08/2008 67544 91 RxNorm Not Available [facility] 1 06:05:20 573 erythromy arnold medicatio n rash Not available Not available 06/08/2008 4053 RxNorm Not Available [facility] 1 06:05:20 574 aspirin medicatio n rash Not available Not available 06/08/2008 1191 RxNorm Not Available [facility] 1 06:05:20 575 Biaxin medicatio n rash Not available Not available 06/08/200896941 9 RxNorm Not Available [facility] 1 06:05:20 576 ibuprofen medicatio n rash Not available Not available 06/08/2008 5640 RxNorm Not Available [facility] 1 06:05:20 577 rice food Not available Not available Not available 06/08/2008 17487 UNK Not Available [facility] 1 06:05:20 578 Hymenopte ra allergeni c extract medicatio n rash Not available Not available 06/08/2008 11802 4 RxNorm Not Available [facility] 1 06:05:20 579 Cleocin medicatio n rash Not available Not available 06/08/200863386 2 RxNorm Not Available [facility] 1 06:05:20 580 Tylenol medicatio n Not available Not available Not available 06/08/200861327 3 RxNorm can take 2101 Rashid Lyons MD [address] [place] [address], [facility], [address], [facility] 2 09:49:48 581 Substance with sulfonami de structure and antibacte rial mechanism of action (substanc e) medicatio n rash Not available Not available 06/08/2008 04849 8003 SNOMED Not Available [facility] 1 06:05:20 582 Shellfish (substanc e) food,medi cation rash Not available Not available 06/08/2008 30028 9006 SNOMED Not Available [facility] 1 06:05:20 583 Bactrim medicatio n rash Not available Not available 06/08/2008 85924 9 RxNorm Not Available [facility] 1 06:05:20 584 Product containin g penicilli n (product) medicatio n anaphylax is Not available Not available 06/08/2008 84172 8001 SNOMED but had abx chall enge done by Dr. Nate Andujar in - can cathy ate amox, kefle x, augme ntin- React ed to amoxi cilli n - Nguyen Quesada [address] [facility], [place], [address] , [facility] 9 09:40:16 585 corn extract food,medi cation rash Not available Not available 06/08/2008 78639 08 RxNorm Not Available [facility] 1 06:05:20 586 tetracycl ine medicatio n rash Not available Not available 06/08/2008 38994 RxNorm Not Available [facility] 1 06:05:20 587 caffeine food,medi cation rash Not available Not available 06/08/2008 1886 RxNorm Not Available [facility] 1 06:05:20 Medications Name Sig Start Date [...] Updated DateTime 9 148.59 cm 21.9 kg/m2 62684.8 9 g 88 /min 98.2 [degF] 110 mm[Hg] 70 mm[Hg] Karla Razo LPN [facility] 9 12:01:06 Date Recorded Body height Body mass index (BMI) Body weight Heart rate Systolic blood pressure Diastolic blood pressure Provider Name and Address Organization Details Last Updated DateTime 9 148.59 cm 21.9 kg/m2 11166.5 9 g 80 /min 106 mm[Hg] 60 mm[Hg] Karla Razo LPN [facility] 9 10:34:16 Date Recorded Body height Body mass index (BMI) Body weight Heart rate Systolic blood pressure Diastolic blood pressure Provider Name and Address Organization Details Last Updated DateTime 9 148.59 cm 22.1 kg/m2 79586.4 8 g 88 /min 130 mm[Hg] 72 mm[Hg] Ruthie Guerrier, [facility] 9 09:26:31 Date Recorded Body height Body mass index (BMI) Body weight Heart rate Systolic blood pressure Diastolic blood pressure Provider Name and Address Organization Details Last Updated DateTime 9 148.59 cm 22.2 kg/m2 56912.6 8 g 76 /min 118 mm[Hg] 76 mm[Hg] Angel Butler, [facility] 9 10:15:07 Date Recorded Body temperature Provider Name a ia Address Organization Details Last Updated DateTime 02/28/2019 98.2 [degF] Lexi Hernández PA-C [address] [place], [address], [facility] 02/28/2019 10:41:47 Date Recorded Body height Body mass index (BMI) Body weight Heart rate Systolic blood pressure Diastolic blood pressure Provider Name and Address Organization Details Last Updated DateTime 9 148.59 cm 22.4 kg/m2 88445.2 7 g 80 /min 128 mm[Hg] 84 mm[Hg] Maria E Reyez, [facility] 9 10:08:33 Social History Question Answer Notes LastModified by Organizat ion Details LastModified Time Tobacco Smoking Status Never Smoker 07/11/16 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 NONE [facility] Information not available 09/18/2014 General Stress Level High High Due To Health, Sons Graduating, Moving, Fall In May [facility] Information not available 09/18/2014 Do You Use Sunscreen Routinely? Yes [facility] Information not available 09/18/2014 Sex: Unknown Functional [...] & HL & mac degeneration (details) no [place], CVA, DM, no breast or colon cancer [...] Recorded Time Tdap 2010 completed Floridalma Carbajal [facility] 05/12/2014 12:22:30 Past Encounters Encounter ID Performer Location Encounter Start Date Encounter Closed Date Diagnosis/Indication Diagnosis SNOMED-CT Code Diagnosis ICD10 Code Diagnosis Note [id number] [facility], OFFICE [address] [place] [address] 01/23/2006 10:42:32 05/24/2008 02:02:29 [id number] [facility], OFFICE [address] [place] [address] 02/06/2006 09:49:57 02/06/2006 14:16:47 [id number] [facility], OFFICE [address] [place] [address] 02/13/2006 08:58:18 02/13/2006 15:37:40 [id number] [facility], OFFICE [address] [place] [address] 02/24/2006 10:50:15 02/24/2006 15:11:08 [id number] Physical Therapy, [address] [address] 03/11/2006 11:17:43 05/24/2008 02:02:29 [id number] Physical Therapy, [address] [address] 03/20/2006 09:47:05 05/24/2008 02:02:29 [id number] [facility], OFFICE [address] [place] [address] 03/23/2006 10:57:48 03/24/2006 09:24:07 [id number] Eye Care, [address] [address] 04/16/2006 11:08:54 04/16/2006 16:44:09 [id number] [facility], OFFICE [address] [place] [address] 05/12/2006 09:57:16 05/12/2006 16:37:00 [id number] Radiology , [address] [address] 05/20/2006 11:07:20 05/21/2006 09:24:28 [id number] Radiology , [facility] [address] [place] [address] 05/20/2006 00:00:00 05/24/2008 02:02:29 [id number] [facility], OFFICE [address] [place] [address] 6 06/19/2006 10:28:52 06/19/2006 14:25:46 [id number] LAB - [facility] [address] [place] [address] 6 06/19/2006 11:20:27 06/19/2006 11:20:38 [id number] , [facility], OFFICE [address] [place] [address] 6 10/01/2006 10:07:34 10/01/2006 11:37:34 [id number] [facility], [facility] [address] [place] [address] 6 10/01/2006 10:30:42 10/01/2006 17:56:33 [id number] , [facility], OFFICE [address] [place] [address] 6 10/23/2006 10:50:37 10/23/2006 13:30:29 [id number] , [facility], OFFICE [address] [place] [address] 6 11/16/2006 13:24:45 11/16/2006 15:35:43 [id number] , [facility], OFFICE [address] [facility] [place] [address] 6 11/24/2006 16:10:05 11/24/2006 17:20:43 [id number] , [facility], OFFICE [address] [facility] [place] [address] 6 01/08/2007 13:28:29 01/08/2007 16:04:02 [id number] LAB - C [address] [facility] [address] 6 01/12/2007 11:02:12 01/12/2007 11:02:34 [id number] , [facility], OFFICE [address] [facility] [place] [address] 6 01/22/2007 15:09:23 01/22/2007 16:55:17 [id number] , [facility], OFFICE [address] [facility] [place] [address] 6 03/10/2007 09:25:56 03/15/2007 15:08:32 [id number] , [facility], OFFICE [address] [facility] [place] [address] 6 04/02/2007 13:38:39 05/24/2008 02:02:29 [id number] , [facility], OFFICE [address] [facility] [place] [address] 6 05/07/2007 16:07:52 05/24/2008 02:02:29 [id number] LAB - [facility] [address] [facility] [place] [address] 6 06/02/2007 14:41:59 06/02/2007 14:44:21 [id number] LAB - [facility] [address] [facility] [place] [address] 6 06/03/2007 08:10:59 06/03/2007 08:14:54 [id number] FP, C, OFFICE [address] [place] [address] 6 06/09/2007 12:08:11 05/24/2008 02:02:29 [id number] FP, C, OFFICE [address] [place] [address] 6 06/02/2007 13:37:18 05/24/2008 02:02:29 [id number] FP, C, OFFICE [address] [facility] [place] [address] 6 06/14/2007 10:49:52 05/24/2008 02:02:29 [id number] , C, OFFICE [address] [place] [address] 6 10/14/2007 10:06:22 05/24/2008 02:02:29 [id number] FP, C, OFFICE [address] [facility] [place] [address] 6 11/11/2007 10:09:14 05/24/2008 02:02:29 [id number] , C, OFFICE [address] [facility] [place] [address] 6 12/16/2007 13:02:34 05/24/2008 02:02:29 [id number] FP, C, OFFICE [address] [place] [address] 6 02/17/2008 10:52:21 05/24/2008 02:02:29 [id number] FP, C, OFFICE [address] [place] [address] 6 04/04/2008 08:58:12 05/24/2008 02:02:29 [id number] FP, C, OFFICE [address] [place] [address] 6 06/08/2008 10:04:34 06/20/2008 10:44:42 [id number] , [facility], OFFICE [address] [facility] [place] [address] 6 10/05/2008 15:49:33 10/10/2008 14:17:31 [id number] , [facility], OFFICE [address] [facility] [place] [address] 6 10/19/2008 10:57:02 10/24/2008 10:47:47 [id number] , [facility], OFFICE [address] [facility] [place] [address] 6 11/30/2008 09:09:13 12/06/2008 14:40:50 [id number] , [facility], OFFICE [address] [facility] [place] [address] 6 02/01/2009 10:15:59 02/02/2009 14:02:21 [id number] , [facility], OFFICE [address] [facility] [place] [address] 6 02/05/2009 09:31:20 02/08/2009 12:06:33 [id number] , [facility], OFFICE [address] [facility] [place] [address] 6 02/15/2009 11:00:36 02/20/2009 15:33:19 [id number] LAB - C [address] [facility] [address] 6 02/05/2009 08:43:03 02/05/2009 09:12:20 [id number] LAB - C [address] [facility] [address] 6 02/14/2009 09:25:28 02/14/2009 09:52:20 [id number] , [facility], OFFICE [address] [facility] [place] [address] 03/01/2009 09:23:19 03/06/2009 10:36:28 [id number] , C, OFFICE [address] [facility] [place] [address] 6 04/12/2009 09:38:21 04/17/2009 10:41:14 [id number] [facility] , C [address] [facility] [place] [address] 6 04/23/2009 09:21:02 04/24/2009 13:51:58 [id number] , [facility], OFFICE [address] [facility] [place] [address] 6 04/23/2009 09:57:20 04/25/2009 07:43:24 [id number] , [facility], OFFICE [address] [facility] [place] [address] 6 05/24/2009 08:33:01 05/28/2009 14:53:40 [id number] Radiology , [facility] [address] [place] [address] 6 06/01/2009 09:37:55 06/04/2009 14:12:15 [id number] , [facility], OFFICE [address] [facility] [place] [address] 6 07/17/2009 10:22:35 07/19/2009 14:48:16 [id number] , [facility], OFFICE [address] [facility] [place] [address] 6 08/14/2009 12:54:09 08/17/2009 14:55:25 [id number] , [facility], OFFICE [address] [facility] [place] [address] 6 08/23/2009 11:40:27 08/28/2009 09:31:47 [id number] , [facility], OFFICE [address] [facility] [place] [address] 6 09/07/2009 12:24:00 09/11/2009 14:48:43 [id number] , [facility], OFFICE [address] [facility] [place] [address] 6 10/19/2009 09:20:29 10/24/2009 14:16:32 [id number] Radiology , [facility] [address] [facility] [place] [address] 6 08/09/2010 08:13:41 08/12/2010 13:34:53 [id number] , [facility], OFFICE [address] [facility] [place] [address] 6 11/18/2011 08:17:18 11/18/2011 09:15:40 [id number] Rashid Lyons MD , [facility], OFFICE [address] [place] [address] 6 02/06/2012 09:23:15 02/06/2012 11:53:57 [id number] Cyndy Yeager NP , [facility], OFFICE [address] [place] [address] 6 02/23/2012 10:29:46 02/23/2012 11:53:59 [id number] Nguyen Quesada , [facility], OFFICE [address] [place] [address] 6 03/04/2012 09:39:50 03/04/2012 10:17:47 [id number] Cydney Chavez , [facility], OFFICE [address] [place] [address] 6 05/07/2012 15:33:43 05/07/2012 16:43:05 [id number] Jere Eid MD , [facility], OFFICE [address] [place] [address] 6 05/28/2012 11:24:31 05/28/2012 12:35:08 [id number] Tona Shoemaker LPN , [facility], OFFICE [address] [place] [address] 6 08/17/2012 13:24:08 08/17/2012 13:53:46 [id number] , [facility], OFFICE [address] [place] [address] 6 04/14/2014 09:10:14 04/14/2014 10:20:42 Abdominal pain 99012455 possibly adhesions recent evals within 1 year:neg [...] see back in 2-3 weeks Allergic rhinitis [id number] trail of flonase helped in [place] past therefore try again 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 note: no answer thinking about going through [facility] for extraction will call to discuss fosamax Unable to balance [id number] PT needed 69 yo F w/ multiple medical problems; has completed PT at [facility] in 2011 for balance but it is an ongoing issue; has fallen; last time ~1 year ago; has history of osteoporos is; needs assessment and strength/g ait management ; known vertigo ?menierre' s Vertigo [id number] avoids salt neg eply today needs PT for balance trainign and / or ambulatory aids unclear if menierres but she attests to hearing loss and tinnitus; no n/v ?labrinyth vincent in setting of recurent sinusisit brain MRI wnl Dr Hinson ~09/2013 per pt Screening mammography [id number] Many women with early breast cancer have [...] d nipple discharge, especially bloody discharge Osteoporosis 04714386 re viewed treatment options highly unlikely ins to cover inj like boniva or reclast without trying fosamax i will reach out to pt's dentist to review Hyperlipidemia 52492216 per chart, check lipids for new baseline Left bundl e branch hemiblock 5818264 stable; need to review cards records needs framingham score has asa allergy [id number] Cydney Chavez , [facility], [address] [place] [address] 06/09/2014 08:48:34 06/09/2014 10:45:46 Contusion of multiple sites 299722213 [id number] Tona Shoemaker LPN , [facility], OFF[address] [place] [address] 06/14/2014 11:48:27 06/14/2014 12:48:32 Concussion 86669342 seeing improvemen t; hopefully symptoms completely resolve in next couple of weeks otherwise may lend itself to post concussive syndrome education provided Fracture of rib 53959032 continues w/ point tenderness ; plan for xray now Whiplash i njury to neck 26180103 69 yo F w/ fall on ice 05/2014 w/ swelling and stiffness of L knee, needs strength training; also with whiplash like injury w/ good rom but stiffness Posterior rhinorrhea 29477312 very significan t on exam today plan for Flonase does not appear to have allergies to it Knee pain 95193171 69 yo F w/ fall on ice 05/2014 w/ swelling and stiffness of L knee, needs strength training; also with whiplash like injury w/ good rom but stiffness [id number] Cyndy Yeager NP , [facility], OFFICE [address] [place] [address] 6 07/11/2014 10:58:52 07/11/2014 11:50:22 Knee pain 75666198 [id number] , [facility], OFFICE [address] [place] [address] 6 07/19/2014 08:01:38 07/19/2014 09:52:51 Screening mammography 66499913 Many women with early breast cancer have [...] nipple discharge, especially bloody discharge Knee pain 31485224 69 yo F w/ trauma to L [...] PT tranasisit on period Pain in limb 09427813 [id number] Physical Therapy, [address] [address] 07/24/2014 12:22:31 07/24/2014 14:35:16 Knee pain 70388821 [id number] Margaret Mendoza , [facility], OFFICE [address] [place] [address] 6 08/02/2014 09:07:22 08/02/2014 09:41:05 Erythema 414869279 Ddx includes a bruise that's just becoming visible, reactive skin, or early cellulitis . That said, it sounds as though it has been unchanged in size and improved in color since visit with Dr. Cazares. She has been putting compresses on it regularly. She does have a prescripti on for Keflex from her dermatolog ist. [id number] Ruthy Markham Ms, PT Physical Therapy, [address] [address] 08/03/2014 09:09:16 08/03/2014 14:04:20 Knee pain 26637508 [id number] Ruthy Markham Ms, PT Physical Therapy, [address] [address] 6 08/07/2014 08:55:14 08/07/2014 09:42:24 Knee pain 01765232 [id number] Ruthy Markham Ms, PT Physical Therapy, [address] [address] 6 08/10/2014 09:58:12 08/11/2014 07:21:55 Knee pain 80189843 [id number] , [facility], OFFICE [address] [place] [address] 6 08/14/2014 08:55:22 08/14/2014 09:23:57 Knee pain 03463465 69 yo F w/ trauma to L knee 06/01/14 from fall with ongoing red area x 1 mo; has Keflex from derm but not taking it until sees handle maker tomorrow (recommend kelfex 500mg bid x 7 days) (area outlined) she will confirm w/ dr calderon that she can take 07/2014 Doppler NEG was eval at [facility] but no note, staff requested (none received) trial of icy hot as pt fearful to take anything oral warm compress to area of redness see back sooner if area spreads outside line raise leg nightly as unable to tolerate PT -- MRI and ortho now t/c injections as well as may help during PT tranasisit on period Cellulitis of lower limb [id number] as above concerning in that it is lingering but reassuring that no dvt and not enlargenin g note redness occurred ~07/16 and pt does not hang out outside so this is very unlikely to be a bull's eye/lyme from tick bite (would have resolved by now as well) [id number] Cyndy Yeager NP , [facility], OFFICE [address] [place] [address] 6 09/07/2014 10:35:57 09/07/2014 11:19:05 Cellulitis of lower limb 563373614 Knee pain 45672676 [id number] Ruby Woo , [facility], [address] [place] [address] 09/18/2014 10:09:52 09/18/2014 11:14:50 Postmenopausal state 28015630 Acute uppe r respiratory infection 58605107 Educated patient that URI is a viral [...] new ones, to see Dr Yumiko mcrae. [id number] , [facility], OFF[address] [place] [address] 10/02/2014 11:34:41 10/02/2014 12:41:57 Knee pain 32684162 will wear sleeve and continue PT exercises she is aware that a sleeve can be supportive but may mask ongoing weakness and PT is tello Impairment of balance 782671924 69 yo F w/ a fall in may with L knee pain and worsening balance since this injury; MRI of knee without anatomical disruption , but continues with low back pain and impairment of balance, please help optimize for balance/ga it Environmental allergy [id number] going for allergy shots and close f/up iwth dr calderon; on cramolyn sodium 5ml seeing yumiko 10/10/14 wt down 7lb in 3months 94lb today Abnormal weight loss 709503357 check alb if quite low ensure/linn st will be needed; pt to reveiw this rec w/ yumiko to make sure this supplement is safe to take [id number] Jalyn Cazares M.D. , [facility], [address] [place] [address] 11/21/2014 10:40:50 11/21/2014 11:57:07 Knee pain 70064233 did not tolerate hinged brace; recommend sleeve; if not covered by her insurance, she will think about buying it over the counter, encouraged PT exercises at home that she learned as she is overwhelme d w/ appts and decided to not f/up with PT at this time History of multiple allergies 182572005 complicate d history and happy to see she is improving s/p allergy shots and has had some wt gain. all good news Abdominal pain 82577874 possibly adhesions recent evals within 1 year:neg ct per pt, neg cscope and egd CT a/p: 09/2014 w/ 3.7cm on R side and her pain is LLQ, no bowel issues; plan for US and GI f/up see back in 2-4 weeks [id number] [facility] [address] [address] 12/14/2014 10:08:46 12/14/2014 11:52:59 Osteoporosis 18199767 [id number] [facility], OFFICE [address] [place] [address] 01/22/2015 13:17:48 01/22/2015 15:44:10 Chronic pain syndrome 062367616 69 yo F w/ complicate d PMH [...] copy of dr hinson's records Abdominal pain 63980553 possibly adhesions but GI eval per pt [...] move it up); see back after US [id number] Jalyn Cazares M.D. , [facility], OFF[address] [place] [address] 02/19/2015 11:37:38 02/19/2015 12:45:13 Chronic pain syndrome 703568766 G89.[address] coleman (out of pocket cost $200) copy of her previsit ppwk put in chart letter for pvta given Abdominal pain 95293906 R10.9 possibly adhesions but GI eval per [...] see back after US 2nd opinion at [facility] and pt will f/up with gi and repeat ct per gi recs [id number] Jalyn Cazares M.D. , [facility], OFFICE [address] [place] [address] 03/14/2015 08:56:17 03/14/2015 09:57:20 Adult health examination 682458583 Z00.00 see Risk Assessment and Lifestyle Change Counseling section above Counseling 571890455 Z71 .9 Screening for disorder 995657611 Z11.59 Abdominal pain 77525361 R10.9 possibly adhesions but GI eval per [...] 3.7cm), enlarged ovary; periodic surveillan ce, consider DRAPERY CUTTER eval; no source of left sided painNOT E pt only had abd US, this is labeled wrong. she had to decline the transvag US due to pain 2nd opinion at [facility] if water operator eval on thursday is not revealing Chronic pain syndrome 37 3938152 G89.[address] coleman (out [...] or PSS if needed in the future [id number] Yony Ruiz MD [facility], [facility] [address] [place] [address] 03/23/2015 07:49:27 03/23/2015 10:03:12 Osteoporosis 40998268 M81.0 -add calcium 500mg by mouth once daily -increase vitamin d to 2000units by mouth once daily in general, 4000units daily 1 week before and after the reclast -continue dairy 3 times daily [id number] Norma Walker , [facility], OFF[address] [place] [address] 06/12/2015 11:16:07 06/12/2015 12:37:21 Fibromyositis 87751115 M79.7 Given multiple allergies, discussion re: medical marijuana as below. Pain in le ft lower limb 303092311 M79.605 Likely related to fall, I agree. Potential options for management going forward as below. Allergic reaction 039148 005 T78.40XD Agree with continuing with Dr. Calderon for allergy shots and intermitte nt assessment s. [id number] Eric Ritter MD , [facility], OFFICE [address] [place] [address] 06/17/2015 09:15:09 06/17/2015 09:48:52 Acute upper respiratory infection 58112337 J06.9 reassurred cough is minor due to [...] or failure to resolve in 2-4 weeks. [id number] Nguyen Quesaad , [facility], OFFICE [address] [place] [address] 6 06/19/2015 11:36:28 06/19/2015 12:15:20 Acute upper respiratory infection 09667732 J06.9 Acute bronchitis 0993569 2 J20.9 Pain in throat 421024522 R07.0 [id number] Norma SOW, [facility], OFFICE [address] [place] [address] 6 07/05/2015 07:56:57 07/05/2015 08:28:12 Cough 66440311 R05 Post-viral cough. No apparent need for antibiotic at this point in time. Backache 907960161 M54.9 [id number] Nguyen SOW, [facility], OFFICE [address] [place] [address] 6 08/16/2015 08:33:34 08/16/2015 09:20:00 Osteoporosis 86577150 M81.0 Will be receiving reclast from [facility], which should help to stabilize bones. Fibromyositis 84674677 M 79.7 May cause delayed pain after falls. Discussion as below. Anxiety 94723342 F41.9 Understand able, given other health issues Recurrent falls 70969910 2 R29.6 Likely related to deconditio hay due to fibromyalg ia; discussed how fear of falling can encourage falls. Migraine 12150507 G43.90 9 Hx migraine and neuralgia. Recommend seeing Dr. Linares as Dr. Hinson is no longer available. [id number] Cyndy Yeager NP FP, [facility], OFFICE [address] [place] [address] 6 09/07/2015 16:52:24 09/08/2015 11:06:29 Cellulitis 181295386 L03.90 [id number] Nguyen Quesada , [facility], OFFICE [address] [place] [address] 6 09/10/2015 11:38:25 09/10/2015 12:28:38 Swelling of lower leg 734160413 R22.41 On R. Pt is on day 3 of cephalexin . Recommend finishing the medication at this point in time as ?if it has improved based on last descriptio n. Recommend also check thyroid and uric acid. [id number] Cyndy Yeager NP , [facility], OFFICE [address] [place] [address] 6 09/17/2015 09:35:06 09/17/2015 10:16:17 Swelling of lower leg 451282613 R22.41 [id number] Cyndy Yeager NP , [facility], OFFICE [address] [place] [address] 6 09/21/2015 09:45:27 09/21/2015 10:53:31 Foot pain 80682805 M79.671 Fibromyositis 84943789 M 79.7 [id number] Nguyen SOW, [facility], OFFICE [address] [place] [address] 6 10/04/2015 09:54:02 10/04/2015 11:07:38 Diarrhea 25416328 R19.7 Given recent antibiotic s, will check for c. dif or other opportunis tic infections . Malaise and fatigue 2717 66103 R53.81 Nonfasting labs today. If everything is normal, may be that the Reclast somehow triggered a fibromyalg ia flare, which is unfortunat e, and we may simply have to wait for this to fade. Pain in lower limb 42149 006 M79.[address] Ding for further assessment of the leg [id number] Nguyen SOW, [facility], OFFICE [address] [place] [address] 6 10/30/2015 08:49:23 10/30/2015 10:11:42 Primary fibromyalgia syndrome 61165970 M79.7 Unclear if reclast set off the fibromaylg ia. 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 Agree with desensitiz ation therapy via PT. Unclear if prednisone will help or not; discussed risks/bene fits and reviewed jail versus short term side effects. [id number] Nguyen Quesada , [facility], OFF[address] [place] [address] 11/14/2015 11:23:14 11/14/2015 12:27:56 Swelling of lower leg 349901545 R22.41 Will call cardiology office to see if they can do PVD testing on legs; if positive, would get CT angio of legs. Will also check labs and repeat ultrasound of the lower leg. [id number] MD JUANJOSE Lyles, [facility], OFFICE [address] [place] [address] 6 12/12/2015 09:13:37 12/12/2015 10:30:50 Complex regional pain syndrome, type I 86260299 M89.00 [id number] Yony Ruiz MD [facility], [address] [address] 03/21/2016 10:26:58 03/21/2016 11:32:18 Osteoporosis 33150616 M81.0 -bone density testing 08/18, clinic 09/17 Gastroesop hageal reflux disease 944666114 K21.9 Long-term drug therapy 136632985 Z79.899 A repeat DXA a year after the prior exam is indicated due to osteoporos is and treatment with bisphospho nates to evaluate response to therapy. [id number] Nguyen Quesada , [facility], OFFICE [address] [place] [address] 6 04/03/2016 09:14:38 04/03/2016 10:15:43 Cyst of ovary 35763958 N83.201 Primary fi bromyalgia syndrome 76946525 M79.7 I feel reclast set off the fibromaylg ia. Discussion about medication s for this as below. Plan on pt calling me so we can determine the correct medication to use and following up in 6-8 weeks. Over 50% of visit spent discussing current symptoms and plan of treatment [id number] Nguyen Quesada , [facility], OFF[address] [place] [address] 05/14/2016 11:44:20 05/14/2016 12:29:32 Primary fibromyalgia syndrome 17576554 M79.7 I still feel reclast set off the fibromyalg ia. Will plan on starting patient on savella and completeti ng a PA if needed based on meds listed in HPI. If insurance still will not cover, would consider trial of duloxetine . [id number] Yony Ruiz MD [facility], [facility] [address] [place] [address] 06/19/2016 09:36:30 06/19/2016 10:11:46 Osteoporosis 40764163 M81.0 -assess for bone lining changes of the hip, degenerati ve change of spine-bone density testing 08/18, clinic 09/17 Gastroesop hageal reflux disease 400843156 K21.9 Long-term drug therapy 967341966 Z79.899 A repeat DXA a year after the prior exam is indicated due to osteoporos is and treatment with bisphospho nates to evaluate response to therapy. [id number] Nguyen Quesada , [facility], OFF[address] [place] [address] 06/24/2016 08:58:34 06/24/2016 09:41:25 Fibromyositis 15370495 M79.7 Question if this may simply be worse at this point in time in terms of the all over pain. Hopefully can start the duloxetine sooner rather than later, but financial limitation s are an issue. Degenerati ve joint disease involving multiple joints 639593099 M15.[address] pt discussion [address] Dr[address] Ruiz, pt would like to go back to rheumatolo gist. She plans to go back to see Dr. Reyes on Thursday to discuss options for her osteoporos is and her neck pain. Neuralgia 44430046 M79.2 New referral placed. [id number] Yony uRiz MD [facility] [address] [address] 07/11/2016 11:29:40 07/11/2016 12:46:49 Osteoporosis 21220119 M81.0 -calcium supplement , clarify content-da iry 4 servings daily-lizeth min, clarify dose -urine calcium and creatinine to evaluate calcium balance Gastroesop hageal reflux disease 667336058 K21.9 Long-term drug therapy 365282126 Z79.899 A repeat DXA a year after the prior exam is indicated due to osteoporos is and treatment with bisphospho nates to evaluate response to therapy. [id number] Nguyen Quesada , [facility], OFFICE [address] [place] [address] 08/19/2016 09:17:14 08/19/2016 09:59:46 Fibromyositis 74784750 M79.7 Still question if this may simply be worse at this point in time in terms of the all over pain. Hopefully it is not the duloxetine that is causing rash. Plan as below. Neuralgia 44526119 M79.2 Pt to f/u with Dr. Barker. Eruption [id number] R21 Unclear if due to meds or food or something else. Plan as below. [id number] Nguyen Quesada , [facility], OFFICE [address] [place] [address] 6 09/01/2016 09:16:49 09/01/2016 10:33:23 Neck pain 60628421 M54.2 Likely sprain on top of fibromyalg ia. Would recommend restarting the duloxetine and scheduling an appointmen t with PT. Eruption [id number] R21 Resolved. Plan as below. [id number] Christiane Trevino MD PhD Rheumatol vladislav [address] [address] 09/30/2016 08:55:18 09/30/2016 10:11:50 Fibromyalgia [id number] M79.7 typical fibromyalg ia presentati on. Although [...] Degenerati ve joint disease involving multiple joints 612716503 M15.9 typical OA changes of hands and X-ray showed cervical degenerati ve changes. 1). she declined physical therapy, encourage exercises and instructio n was given; 2). follow up Greater tr ochanteric pain syndrome 0187686 M70.60 tenderness at both greater trochanter . She declined steroid injection and will consider. encourage exercises as instructed . follow up. Dry eyes 476779551 H04.1 29 she has dry eyes and dry mouth for years. history of one miscarriag e with unknown reason. rule out sjogren syndrome, which also can cause fatigue and joint pain. sent SSA/SS. follow up. [id number] Nguyen SOW, [facility], OFFICE [address] [place] [address] 02/16/2017 12:06:26 02/16/2017 12:47:06 Screening mammography 71522903 Z12.31 Edema 284788081 R60.9 More likely venous insufficie ncy given the pattern of swelling and normal chest exam; pt also c known hx of insufficie ncy bilaterall y and only slightly abnormal echo a year ago. Would monitor. [id number] Nguyen SOW, [facility] OFFICE [address] [place] [address] 03/11/2017 11:09:09 03/11/2017 12:03:33 Edema 889562277 R60.9 Echocardio gram unchanged from 2015, hx of venous insufficie ncy. Swelling and pain appear separate at this point, so would focus more on the pain than the swelling, since it sounds like the pain is preventing regular compressio n stocking use. Pain in lower limb 61301 006 M79.604 Pt was diagnosed with CRPS at one point by one physiatris t. Symptoms are certainly more consistent with underlying issue with nerves than with edema, given that they seem to be independen t of each other. Unfortunat carl pt does not tolerate many medication s at all. Would recommend [id number] Nguyen SOW, [facility] OFFICE [address] [place] [address] 06/01/2017 09:02:59 06/01/2017 09:44:52 Pain in lower limb 04862378 M79.604 Pt was diagnosed with CRPS at one point by one physiatris t. Pt hasn't followed up with the other office, however; they did order a bone scan. Varicose v eins of lower extremity 42642330 I83.893 Recommend supplement ing with Vitamin C to help with healing process afterwards . [id number] Nguyen SOW, [facility] OFFICE [address] [place] [address] 07/29/2017 11:12:53 07/29/2017 12:15:09 Screening mammography 48937685 Z12.31 Acute sinusitis 21797248 J01.90 Subacute sinusitis. Unclear if bacterial given [...] discussing with Dr. Calderon. Peripheral venous insufficiency 87080643 I87.2 Discussion regarding procedure as below. Neoplasm o f uncertain behavior of skin 68073018 D48.5 [id number] FINA Tillman, [facility] OFFICE [address] [place] [address] 10/06/2017 09:38:36 10/06/2017 13:46:41 Acute upper respiratory infection 19800043 J06.9 Educated patient that URI is a [...] resolve in 2-4 weeks. Screening mammography 24 175724 Z12.31 Pain in throat 168467101 R07.0 [id number] Nguyen SOW, [facility] OFFICE [address] [place] [address] 10/21/2017 11:17:16 10/21/2017 14:23:53 Fibromyalgia 717244103 M79.7 Will recheck inflammato ry markers to make sure these are still normal. Discussion as below. Acute uppe r respiratory infection 64915778 J06.9 Improving gradually; may take up to 4 weeks to resolve completely and cough may take up to 6 weeks. Pain in ri ght lower limb 258360665 M79.604 Symptoms consistent with nerve pain, unfortunat carl. Discussion as below. [id number] Nguyen SOW, [facility] OFFICE [address] [place] [address] 12/31/2017 11:54:46 12/31/2017 13:18:10 Screening mammography 01401635 Z12.31 Cyst of ovary 07389208 N 83.201 Will repeat U/S to make sure cyst hasn't changed and still appears normal. Abdominal pain 34902122 R10.9 Keep taking famotidine . Please get allergy testing done by Dr. Calderon for the foods. Can consider FODMAPs diet trial if not a lot of food allergies. [id number] Nguyen SOW, [facility] OFFICE [address] [place] [address] 02/18/2018 08:53:57 02/18/2018 09:47:06 Osteoporosis 13642875 M81.0 Discussed with pt that I don't think this should stop her from getting a mammogram but will put a note on the mammo for staff to be as gentle as possible. Generalize d aches and pains 47943475 R52 Agree with keeping appointmen t wtih the specialist . [id number] Nguyen Quesada , [facility] OFFICE [address] [place] [address] 04/22/2018 14:03:31 04/22/2018 15:04:57 Fibromyositis 04598016 M79.7 Strong suggestion that reclast triggered the fibromyalg ia, unfortunat carl. Left bundl e branch hemiblock 6813235 I44.60 Osteoporosis 29621437 M8 1.0 To trial prolia with Dr. Masters . [id number] , [facility], OFFICE [address] [place] [address] 06/04/2018 11:54:51 06/04/2018 12:49:01 Pain of breast 04520328 N64.4 Will check diagnostic mammogram and breast ultrasound . Rib pain 773631889 R07.8 1 Will check rib and CXR to r/o fracture, pneumonia presenting atypically . Advised to watch for rash as this could be early shingles, she will return to the clinic immediatel y with any presentati on of rash along area of pain. Pt states she cannot tolerate tylenol, NSAIDs. Advised use of topical lidocaine to rib which she has at home. [id number] Briana Grijalva , [facility], OFFICE [address] [place] [address] 08/12/2018 11:23:55 08/12/2018 12:08:53 Abdominal pain 91843389 R10.9 Significan t LLQ tenderness . Question if atypical presentati on of diverticul itis. Given abx allergies would rather hold off on those unless absolutely necessary. [id number] Nguyen Quesada , [facility] OFFICE [address] [place] [address] 09/01/2018 08:44:59 09/01/2018 09:47:36 Eruption 797397982 R21 Improving slowly. Would do a slow taper and have pt also continue with the cetirizine Abdominal pain 26869245 R10.9 Significan t LLQ tenderness previously but CT without good explanatio n. To keep appointmen t with GI as scheduled. [id number] Nguyen Quesada , [facility] OFFICE [address] [place] [address] 09/22/2018 09:56:32 09/22/2018 10:51:31 Dizziness 484836807 R42 EKG is unchanged, rhythm is regular. Given history and findings of orthostasi s today, suspect that pt had drop in BP that led to everything . Plan on fluids, follow-up with cardiology . Foreign body in skin 934 33351 W45.8XXA Removed with forceps. Neck pain 47725068 M54.2 Likely sprain on top of fibromyalg ia. Plan as below. [id number] Nguyen SOW, [facility] OFFICE [address] [place] [address] 10/25/2018 11:50:28 10/25/2018 12:20:58 Acute sinusitis 44499798 J01.90 Low grade sinusitis. Unclear if bacterial given lack of fever, seems more like viral at the moment. Pt is allowed to take augmentin (challenge d by handle maker) . That said, given on the cusp would recommend antibiotic only if not improving by Thursday. [id number] Nguyen SOW, [facility] OFFICE [address] [place] [address] 11/22/2018 10:24:27 11/22/2018 10:52:42 Neck pain 70947143 M54.2 Likely sprain on top of fibromyalg ia. Plan as below. Multiple joint pain 3567 8005 M25.50 [id number] Nguyen SOW, [facility], OFFICE [address] [place] [address] 01/13/2019 09:14:41 01/13/2019 09:49:15 Thyroid hormone borderline low 311909163 R89.1 Will check twice yearly. Eruption 969860063 R21 Improving slowly. Would do a slow taper and have pt also continue with the cetirizine Low back pain 979074951 M54.5 Recommend supportive care, can write script for PT if needed [id number] TERRY Chang, [facility], OFFICE [address] [place] [address] 6 02/28/2019 09:30:55 02/28/2019 11:08:21 Allergy 711775724 Z91.09 Epipen refilled. Referred to miladis covarrubias handle maker. Impacted c erumen in right ear 7070238245 202589 H61.21 Cerumen removed without incident [id number] Evita Cosme PA-C , [facility], OFFICE [address] [place] [address] 04/26/2019 09:50:42 04/26/2019 10:47:42 Neck pain 08312053 M54.2 Neck pain x4 days, no known [...] [place] Nicci Boggs [id number] [facility] 10/25/2018 2 [place] [id number] Nicci Boggs [id number] [facility] 11/22/2018 1 [place] Nicci Boggs [id number] 67 [facility] 11/22/2018 2 [place] [id number] Nicci Boggs [id number] [facility] 01/13/2019 1 [place] Nicci Boggs [id number] 67 Nicci [facility] 01/13/2019 2 [place] [id number] Nicci Boggs [id number] Nicci [facility] 02/28/2019 1 [place] Nicci Boggs [id number] 67 [facility] U[facility] 02/28/2019 2 [place] [id number] Nicci Boggs [id number] [facility] 04/26/2019 1 [place] Nicci Boggs [id number] 67 [facility]ci Ugarte 04/26/2019 2 [place] [id number] Nicci Boggs [id number] Nicci Ugaret Notes Date Note Type Note Provider Name [...] likely related to her fibromyalgia. Nguyen Quesada [address] [place] [address], [phone], [facility] 10/25/2018 12:18:57 11/22/2018 text/html Pt comes in [...] worried about an abscess. She saw her retail loss prevention officer who recommended taking amoxicillin which she finished 11/12. She does feel it helped her jaw some and she is going to be having a root canal next week. Nguyen Quesada [address] [place], [address], [facility] 11/22/2018 10:52:37 01/13/2019 text/html Pt comes in [facility] for f/u labwork; TSH done at [...] past couple of days. Nguyen Quesada [address] [place], [address], [facility] 01/13/2019 09:44:29 02/28/2019 text/html Pt reports she [...] shortness of breath.Would like to see her handle maker for testing for antibiotic allergies. Has multiple antibiotic allergies. Lexi Hernández PA-C [address] [place], [address], [facility] 02/28/2019 13:50:24 04/26/2019 text/html 74yo female come [...] no bowel/bladder incontinence. Evita Cosme PA-C [address] [place], [address], [facility] 04/26/2019 11:04:30 OBGyn Episode No OBEpisode recorded.
--- OUTSIDE RECORDS SUMMARY | 2024-07-14 09:07 | XMS_ITS | Encounter Summary ---
Author Organization [facility] Address [address] [place] [address] Care Team Providers Care Food Services Coordinator Name Role Phone Ruma Bravo MD Primary Care Provider Reason for Visit * Reason Onset Date Comments provider call back 06/27/2024 Encounter Details Date Type Department Care Team ([facility] st Contact Info) Description 06/27/2024 Telephone Gastroenterology - [place] 175 [facility] [address] [facility] [address] [place] [address] Toñito Pride MD [address] [facility] [address] [place] [address] provider call back Social History Tobacco Use [...] the office notes from Dr. Tirado office [facility] colorectal surgery, [address] [place] [address]. Patient is concerned documented in this encounter Plan of Treatment Upcoming Encounters Date Type Department Care Team (Late st Contact Info) Description 10/19/2024 1:30 PM EDT Appointment [facility] Endoscopy [address] [place] [phone] Toñito Pride MD 175 [facility] [address] [place] [address] documented as of this encounter Visit Diagnoses Not on filedocumented in this encounter Care Teams Food Services Coordinator Relationship Specialty Start Date End Date Ruma Bravo MD [address] [facility] [address] [place] [address] PCP - General Internal Medicine 05/21/24 documented as of this encounter
--- OUTSIDE RECORDS SUMMARY | 2024-07-14 09:07 | XMS_ITS | Continuity of Care Document ---
Author Organization [facility] Address [address] [place] [address]- Care Team Providers Care Director Religious Education Name Role Phone Lawrence GERBER, Ruma Bauer Primary Care Physician Encounter [facility] Date(s): 06/13/24 - 07/13/24 [facility] [address] [place] [address]- Encounter Type: Triage Allergies, Adverse Reactions, Alerts [...] Tylenol Active Cats Active Contrast Dye Active [place] Active Horses Active Latex rash Active Cleocin T Active Fosamax Active Augmentin Active Bactrim Active linezolid Unable to assess criticality Persistent Mild Active Biaxin XL Active Adhesive Bandage rash Act sam Dogs Active Dust Active Mold Active Nuts [...] Refills, Maintenance, 04/06/24 10:54:00 AM EST, Tablet, [facility]/pharmacy #[id number], Partial fill upon patient [...] 9:59:00 PM EDT, Route to Pharmacy Electronically, [facility] STORE [id number], 150.2, cm, 11/23/23 10:08:00 EDT, Height, 46.6, [...] Care Team Personnel Name: Yin Hsu Position: [facility] Onco RN Member Role: Primary Care Nurse Name: Ruma Bravo MD Position: [facility] Physician - Primary Care Member Role: PCP Address: [address] [place] [address] Family [address] Telecom: Name: Shikha Rivera RN Position: [facility] RN Member Role: Primary Care Nurse Name: Consuelo Louis RN Position: [facility] RN Member Role: Primary Care Nurse Name: Cherry Olsen MD Position: [facility] TWISTER HAND MD Member Role: [employer] TWISTER HAND Physician Address: [address] [place] [address] Women's Health Beading Installer [address] Telecom: Name: Maeve Jones RN Position: [facility] RN Member Role: Primary [...]
--- OUTSIDE RECORDS SUMMARY | 2024-07-14 09:07 | XMS_ITS | Encounter Summary ---
Author Organization [facility] Address [address] [place] [address] Care Team Providers Care Master Data Analyst Name Role Phone Ruma Bravo MD Primary Care Provider Encounter Details Date Type Department Care Team (Latest Contact Info) Description 07/11/2024 9:55 AM EDT - 07/11/2024 11:59 PM EDT Hospital Encounter [facility] [place] [facility] [address] [place] [address] Gastroesophageal reflux disease with esophagitis, unspecified whether hemorrhage; Generalized abdominal pain Discharge Disposition: Home or Self Care Social History Tobacco Use Types Packs/Day Years [...] on file documented as of this encounter Medications at Time of Discharge ibandronate (BONIVA) 150 mg tablet Take 1 tablet (150 mg total) by mouth every 30 (thirty) days. Take in morning with full glass of water on an empty stomach. No food, drink, meds, or lying down for 60 minutes after. lisinopriL (PRINIVIL,ZESTRI L) 5 mg tablet Take 1 Tablet by mouth daily. omeprazole (PriLOSEC) [address] capsule Take 1 Capsule by mouth daily. Take in am on empty stomach, wait 30 mins and then eat to activate the medication 07/25/2021 omeprazole (PriLOSEC) [address] capsule Take 1 capsule (40 mg total) by mouth 1 (one) time each day. Do not crush or chew. 30 each 05/20/2024 documented as of this encounter Discharge Disposition Disposition Code Departure Means Destination Home or Self Care documented in this encounter Plan of Treatment Upcoming Encounters Date Type Department Care Team (Late st Contact Info) Description 10/19/2024 1:30 PM EDT Appointment [facility] [place] [facility] Endoscopy [address] [place] [phone] Toñito Pride MD 175 [facility] [address] [place] [address] documented as of this encounter Procedures Procedure Name Priority Date/Time Associated Diagnosis Comments XR ABDOMEN 1 VIEW Routine 07/11/2024 10: 10 AM EDT Gastroesophageal reflux disease with esophagitis, unspecified whether hemorrhage Generalized abdominal pain documented in this encounter Results * XR Abdomen 1 View (07/11/2024 10:10 AM EDT) Anatomical Region Laterality Modality Body Radiographic Darby ging 07/11/2024 10:1 2 AM EDT Impressions 07/11/2024 10:13 AM EDT Impression: No significant abnormality identified. Telerad HOLLY ([id number]) -------- FINAL REPORT -------- Dictated By: Sara Soto Dictated Date: 07/11/2024 10:12 ET Assigned Physician: Saar Soto Reviewed and Electronically Signed By: Sara Soto Signed Date: 07/11/2024 10:13 ET Workstation ID: [id number] Transcribed By: Self Edit Transcribed Date: 07/11/2024 10:12 ET Narrative 07/11/2024 10:13 AM EDT History: Abdominal pain and bloating. Findings: AP supine views of the abdomen and pelvis. Surgical chain suture is seen in the right lower quadrant. No bowel dilatation is identified. Formed fecal material within the colon does not appear to be excessive. Solid visceral outlines are unremarkable. Pelvic phleboliths are noted. The regional skeleton is remarkable for a 12 mm sclerotic lesion within the left iliac wing, stable from a [address], compatible with a bone island. Procedure Note Sara Soto MD - 07/11/2024 History: Abdominal pain and bloating. Findings: AP supine views of the abdomen and pelvis. Surgical chain suture is seenin the right lower quadrant. No bowel dilatation is identified. Formedfecal material within the colon does not appear to be excessive. Solidvisceral outlines are unremarkable. Pelvic phleboliths are noted. The regional skeleton is remarkable for a 12 mm sclerotic lesion withinthe left iliac wing, stable from a [address], compatible with abone island. IMPRESSION: Impression: No significant abnormality identified. Telerad PA ([id number]) -------- FINAL REPORT -------- Dictated By: Sara Soto Dictated Date: 07/11/2024 10:12 ET Assigned Physician: Sara Soto Reviewed and Electronically Signed By: Sara Soto Signed Date: 07/11/2024 10:13 ET Workstation ID: [id number] Transcribed By: Self Edit Transcribed Date: 07/11/2024 10:12 ET us Toñito Pride MD IMG XR PROCEDURES Final Res ult documented in this encounter Visit Diagnoses Diagnosis Gastroesophageal reflux disease with esophagitis, unspecified whether hemorrhage Generalized abdominal pain Abdominal pain, generalized documented in this encounter Care Teams Master Data Analyst Relationship Specialty Start Date End Date Ruma Braov MD [address] [address] PCP - General Internal Medicine 05/21/24 documented as of this encounter
--- OUTSIDE RECORDS SUMMARY | 2024-07-14 09:07 | XMS_ITS | Encounter Summary ---
Author Organization [facility] Address [address] [place] [address] Care Team Providers Care Hydraulic Oil Tool Operator Name Role Phone Ruma Bravo MD Primary Care Provider Reason for Visit * Reason Onset Date Comments special procedure 07/13/2024 Encounter Details Date Type Department Care Team ([facility] Contact Info) Description 07/13/2024 Telephone Gastroenterology - [place] 175 [facility] 175 [facility] [address] [place] [phone] Toñito Pride MD 175 [facility] [address] [place] [address] special procedure Social History Tobacco Use Types Packs/Day Years [...] as of this encounter Progress Notes * Yoni Saba - 07/13/2024 9:53 AM EDT SCHEDULED * Afsaneh Young - 07/13/2024 9:37 AM EDT Please cancel appointment, call hospital, schedule conflict, reschedule with patient documented in this encounter Plan of Treatment Upcoming Encounters Date Type Department Care Team (Late st Contact Info) Description 10/19/2024 1:30 PM EDT Appointment [facility] Endoscopy [address] [place] [phone] Toñito Pride MD 175 [facility] [address] [place] [address] documented as of this encounter Visit Diagnoses Not on filedocumented in this encounter Care Teams Hydraulic Oil Tool Operator Relationship Specialty Start Date End Date Ruma Bravo MD [address] [facility] [address] [place] [address] PCP - General Internal Medicine 05/21/24 documented as of this encounter
--- OUTSIDE RECORDS SUMMARY | 2024-07-14 09:07 | XMS_ITS ---
Author Organization [facility] on Care Team Providers Care Metal Control Coordinator Name Role Phone Emma Aranda Unavailable Unavailable Aurora Recinos Unavailable Unavailable Marika Caldwell Unavailable Unavailable Renita Acosta Unavailable Unavailable Yudith Brannon Unavailable Unavailable Ingrid Dhillon Unavailable Unavailable Eric Meza Unavailable Unavailable Allergies and adverse reactions Code CodeSystem Substance Reaction Severity StartDate Concern Status 44548 RXNORM Trimethoprim Nausea (code- 310486626, SNOMED CT) Mild 12/07/2021 active 77107 RXNORM Tetracycline Nausea (code- 811952342, SNOMED CT) Mild 12/07/[address] Sulfa Antibiotics Nausea (code- 631937254, SNOMED CT) Mild 12/07/2021 active Reclast Unknown 12/10/2021 active 8640 RXNORM predniSONE Unknown 12/10/[address] Penicillins Nausea (code- 842482106, SNOMED CT) Mild 12/07/2021 active Nuts Nausea (code- 366688485, SNOMED CT) Mild 12/07/2021 active 02706 RXNORM levoFLOXacin Nausea (code- 369021928, SNOMED CT) Mild 12/07/2021 active latex Unknown 12/10/2021 active IV contrast Unknown 12/10/2021 active 5640 RXNORM Ibuprofen Nausea (code- 942662960, SNOMED CT) Mild 12/07/2021 active 4337 RXNORM fentaNYL Nausea (code- 263555169, SNOMED CT) Mild 12/07/2021 active 4053 RXNORM Erythromycin Nausea (code- 662612707, SNOMED CT) Mild 12/07/2021 active Egg Nausea (code- 772223225, SNOMED CT) Mild 12/07/2021 active 3640 RXNORM Doxycycline Nausea (code- 157272599, SNOMED CT) Moderate 12/07/2021 active Dogs Nausea (code- 654637326, SNOMED CT) Mild 12/07/2021 active 3498 RXNORM diphenhydrAMINE Nausea (code- 457490926, SNOMED CT) Moderate 12/07/2021 active Skandia Nausea (code- 727628145, SNOMED CT) Mild 12/07/2021 active 2670 RXNORM Codeine Nausea (code- 997229088, SNOMED CT) Mild 12/06/2021 active 2582 RXNORM Clindamycin Nausea (code- 548487154, SNOMED CT) Mild 12/06/2021 active 39051 RXNORM Clarithromycin Nausea (code- 152134761, SNOMED CT) Mild 12/06/2021 active 2231 RXNORM Cephalexin Nausea (code- 348318089, SNOMED CT) Mild 12/06/2021 active 98300 RXNORM Cefprozil Nausea (code- 244501965, SNOMED CT) Mild 12/06/2021 active Caffeine Nausea (code- 703203653, SNOMED CT) Mild 12/06/2021 active Augmentin Nausea (code- 805507463, SNOMED CT) Mild 12/07/2021 active 1202 RXNORM Atenolol Nausea (code- 660007488, SNOMED CT) Mild 12/06/2021 active 1191 RXNORM Aspirin Nausea (code- 586585213, SNOMED CT) Mild 12/06/2021 active 723 RXNORM Amoxicillin Nausea (code- 739603939, SNOMED CT) Mild 12/06/2021 active Care Team Name Role Address Phone Organization Dates Marika Caldwell [address], [place], [address], [place] (Office): : [facility] 12/06/2021 - 12/16/2021 Emma Aranda Attending Physician [address] [place], [address], [facility] (Office): [phone] [facility] 12/06/2021 - 12/16/2021 Aurora Recinos Attending Physician [address] [place], [address], [place] (Office): [facility] 12/06/2021 - 12/16/2021 Renita Acosta Attending Physician [address] [place], [address], [place] (Office): [facility] 12/06/2021 - 12/16/2021 Yudith Brannon Attending Physician [address] [place], [address], [place] (Office): [facility] 12/06/2021 - 12/16/2021 Ingrid Dhillon Attending Physician [address] [place], [address], [place] (Office): : [facility] 12/06/2021 - 12/16/2021 Eric Meza Attending Physician [address] [place], [address], [place] (Office): : [facility] 12/06/2021 - 12/16/2021 Immunizations Immunization Status Vaccine Details Vaccine Code CodeSystem Freddy e Notes SARS-COV-2 (COVID-19) completed SARS-COV-2 (COVID-19) vaccine, mRNA, spike protein, LNP, preservative free, 30 mcg/0.3mL dose Mfg: [employer] Step 1 of Multi-step with next step required 208 CVX created date: 12/06/2021 administered date: 08/29/2020 Mental Status Section Date Assessment Total Score Description 12/16/2021 BIMS 15 cognitively int act CAM 0 No delirium ind icated PHQ-9 04 minimal depress ion 12/12/2021 BIMS 15 cognitively int act CAM 0 No delirium ind icated PHQ-9 04 minimal depress ion Problems Problem # Description Date of onset Resolved Date Code CodeSystem Concern Status 1 AGE-RELATED OSTEOPOROSIS WITHOUT CURRENT PATHOLOGICAL FRACTURE [address] active 2 CELLULITIS OF RIGHT LOWER LIMB [address] active 3 DYSPHAGIA, UNSPECIFIED [address] active 4 EDEMA, UNSPECIFIED [address] active 5 FIBROMYALGIA [address] active 6 GASTRO-ESOPHAGEA L REFLUX DISEASE WITHOUT ESOPHAGITIS [address] active 7 LEFT BUNDLE-BRANCH BLOCK, UNSPECIFIED [address] active Reason for Referral No Reasons for Referral Entered Social History Social History Observation Description Start Date End Date Code Code System Current Smoking Status Tobacco smoking consumption unknown 577120182 SNOMED CT Sex Assigned At Female 1945 [address]29[address]-0 [facility] Vital Signs Code Code System Vitals Name Values and Units Timing Information 56332-0 [facility] Pain Level Value=0.0 12/16/2021 9279-1 [facility] Respiratory Rate Value=18.0 Units=/m in 12/15/2021 8462-4 [facility] Blood Pressure-Diastolic Value=65 Un its=mmHg 12/15/2021 8480-6 INC Blood Pressure-Systolic Pjrrw=410 Un its=mmHg 12/15/2021 8310-5 [facility] Body Temperature Value=96.6 Units=?? F 12/15/2021 8867-4 [facility] Heart rate Value=81.0 Units=/min 52814-5 [facility] O2 % dC Oximetry Value=96.0 Units= % 12/15/2021 99188-4 [facility] Weight Okxbx=645.6 Units=Lbs 03/2022 8302-2 LOINC Height Value=59.0 Units=Inches 12/11/2021
--- OUTSIDE RECORDS SUMMARY | 2024-07-14 09:07 | XMS_ITS | Clinical Summary ---
Author Organization [facility] Address [address] [place] [phone] Phone Care Team Providers Care Leguillon Debeader Name Role Phone Ruma Bravo MD Primary Care Provider Allergies Active Allergy Reactions Criticality Noted Date Comments Adhesive 07/25/2021 Amoxicillin Hives 09/12/2021 Amoxicillin-Pot Clavulanate 07/26/19 Aspirin 07/25/2021 Atenolol 07/25/2021 Cefprozil 07/25/2021 Cephalexin 09/12/2021 Chicken Derived 09/12/2021 Clarithromycin Hives 09/12/2021 Clindamycin 07/25/2021 Clindamycin Phosphate 09/12/2021 Codeine 07/25/2021 [place] 09/12/2021 Cyclobenzaprine 07/25/2021 Doxycycline 07/25/2021 Egg 09/12/2021 [...] chew. 30 each 5 05/20/19 26 Active polyethylene glycol (Golytely) 236-22.74-6.74 -5.86 gram solution Take 4L by mouth once for one dose. May substitue any PEG. Starting at 6PM the night before your procedure drink 1 8oz glasses at your own pace until you complete half of the gallon. Finish 2nd half of the gallon 5 hours before your procedure. 4000 mL 5 Active bisacodyL (DULCOLAX) 5 mg EC tablet Take 2 tablets by mouth right before beginning bowel prep. See instructions provided by the office 2 tablet 5 Active Active Problems Problem Noted Date Diagnosed [...] branch block) 07/22/2017 Overview (04/07/2024): [facility] Encounters Date Type Department Care Team Description 07/13/2024 Telephone Gastroenterology - [place] [address] [place] [address] [address] Toñito Pride MD special procedure 07/11/2024 9:55 AM EDT - 07/11/2024 11:59 PM EDT Hospital Encounter Xray [address] [place] [address] Gastroesophageal reflux disease with esophagitis, unspecified whether hemorrhage; Generalized abdominal pain Discharge Disposition: Home or Self Care 06/27/2024 Telephone Gastroenterology [facility] 175 [place] 175 [facility] [address] [place] [phone] Toñito Pride MD provider call back 05/20/2024 2:10 PM EST Office Visit Gastroenterology - [place] 175 [facility] 175 [facility] [address] [place] [phone] Toñito Pride MD Generalized abdominal pain (Primary Dx); Gastroesophageal reflux disease with esophagitis, unspecified whether hemorrhage; Mejias's esophagus without dysplasia; History of right hemicolectomy; Abdominal wall pain; 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 Surgical History Surgery Date Site/Laterality Comments APPENDECTOMY PROCEDURE: [place] APPENDECTOMY OTHER SURGICAL HISTORY PROCEDURE: [place] TOTAL ABDOMINAL HYSTERECT W/WO RMVL TUBE OVARY TONSILLECTOMY PROCEDURE: [place] TONSILLECTOMY PRIMARY/SECONDARY <AGE 14 COLONOSCOPY PROCEDURE: HISTORICAL COLONOSCOPY; COMMENT: last in 2013 Jaylyn Bradford OTHER SURGICAL HISTORY PROCEDURE: HISTORY OTHER; COMMENT: skin cancer removed from forehead COLONOSCOPY 08/05/2021 PROCEDURE: HISTORICAL COLONOSCOPY; COMMENT: hot snare polypectomy, large cecal mass- ESOPHAGOGASTRODUODENOSCOPY 08/05/2021 PROCEDURE: TX ESOPHAGOGASTRODUODENOSCOPY TRANSORAL DIAGNOSTIC; COMMENT: esophagitis, hiatal hernia [...] Info) Description 10/19/2024 1:30 PM EDT Appointment Endoscopy [address] [place] [phone] Toñito Pride MD [address] [address] Health Maintenance Due Date Last Done Comments [...] esophagitis, unspecified whether hemorrhage Generalized abdominal pain COLONOSCOPY Routine 08/05/2021 from Last 3 Months or Most Recently Relevant to Health Maintenance Results * XR Abdomen 1 View (07/11/2024 10:10 AM EDT) Anatomical Region Laterality Modality Body Radiographic Darby ging 07/11/2024 10:1 2 AM EDT Impressions 07/11/2024 10:13 AM EDT Impression: No significant abnormality identified. Telerad PA ([id number]) -------- FINAL REPORT -------- Dictated By: Sara Soto Dictated Date: 07/11/2024 10:12 ET Assigned Physician: Sara Soto Reviewed and Electronically Signed By: Sara Soto Signed Date: 07/11/2024 10:13 ET Workstation ID: [id number] Transcribed By: Self Edit Transcribed Date: 07/11/2024 [...] Impression: No significant abnormality identified. Telerad PA ([id number]) -------- FINAL REPORT -------- Dictated By: Sara Soto Dictated Date: 07/11/2024 10:12 ET Assigned Physician: Sara Soto Reviewed and Electronically Signed By: Sara Soto Signed Date: 07/11/2024 10:13 ET Workstation ID: [id number] Transcribed By: Self Edit Transcribed Date: 07/11/2024 10:12 ET us Toñito Pride MD IMG XR PROCEDURES Final Res ult * Colonoscopy (08/05/2021) HM Colonoscopy Abstracted, no interpretation Anatomical Region Laterality Modality Other us Historical Provider HEALTH MAINTENANCE Final Result from Last 3 Months or Most Recently Relevant to Health Maintenance Insurance MEDICARE [facility] Advance Directives Documents on File Type Date Recorded Patient Composite Worker Expl anation Health Care Decision (hx) 02/03/2022 AD NGUYỄN DIRECTIVE Health Care Decision (hx) 02/03/2022 AD NGUYỄN DIRECTIVE Health Care Decision (hx) 02/03/2022 AD NGUYỄN DIRECTIVE Health Care Decision (hx) 02/03/2022 AD NGUYỄN DIRECTIVE Health Care Decision (hx) 02/03/2022 AD NGUYỄN DIRECTIVE Care Teams Leguillon Debeader Relationship Specialty Start Date End Date Ruma Bravo MD [address] [address] PCP - General Internal Medicine 05/21/24
== END 2024-07-14 09:20 | disposition home or self-care (01) ==
LOC: HO.RHES 08:32
PROVIDERS: Visit Provider Internal Medicine Rheumatology
DX: M13.0 Polyarthritis, unspecified (principal); M75.81 Other shoulder lesions, right shoulder; M75.82 Other shoulder lesions, left shoulder; M25.561 Pain in right knee; M25.562 Pain in left knee; G89.29 Other chronic pain
CPT/HCPCS: 99214; G2211

== ENCOUNTER → 2024-07-14 08:31 | Outpatient (BNVA) | payer MEDICARE, SELFPAY | PROVIDERS: Visit Provider Internal Medicine Rheumatology | DX: M13.0 Polyarthritis, unspecified (principal); M75.81 Other shoulder lesions, right shoulder; M75.82 Other shoulder lesions, left shoulder; M25.561 Pain in right knee; M25.562 Pain in left knee | CPT/HCPCS: 99212 ==

== ENCOUNTER 2024-08-08 09:05 | Outpatient (REF) | payer MEDICARE, SELFPAY ==
--- OUTSIDE RECORDS SUMMARY | 2024-08-08 10:10 | XMS_ITS | Clinical Summary ---
Author Organization [facility] Address [address] [place] [phone] Phone Care Team Providers Care Sports Editor Name Role Phone Ruma Bravo MD Primary Care Provider Allergies Active Allergy Reactions Criticality Noted Date Comments Adhesive 07/25/2021 Amoxicillin Hives 09/12/2021 Amoxicillin-Pot Clavulanate 07/26/19 Aspirin 07/25/2021 Atenolol 07/25/2021 Cefprozil 07/25/2021 Cephalexin 09/12/2021 Chicken Derived 09/12/2021 Clarithromycin Hives 09/12/2021 Clindamycin 07/25/2021 Clindamycin Phosphate 09/12/2021 Codeine 07/25/2021 [place] 09/12/2021 Cyclobenzaprine 07/25/2021 Doxycycline 07/25/2021 Egg 09/12/2021 [...] Encounters Date Type Department Care Team Description 08/04/2024 Telephone Gastroenterology - [place] 175 [facility] [address] [phone] Toñito Pride MD provider call back 07/13/2024 Telephone Gastroenterology [facility] 175 [facility] [address] [phone] Toñito Pride MD special procedure 07/11/2024 9:55 AM EDT - 07/11/2024 11:59 PM EDT Hospital Encounter [facility] Xray [address] [place] [phone] Gastroesophageal reflux disease with esophagitis, unspecified whether hemorrhage; Generalized abdominal pain Discharge Disposition: Home or Self Care 06/27/2024 Telephone Gastroenterology [facility] 175 [facility] 175 [facility] [address] [place] [address] Toñito Pride MD provider call back 05/20/2024 2:10 PM EST Office Visit Gastroenterology [facility] 175 [place] 175 [facility] 200 [place] [address] Toñito Pride MD Generalized abdominal pain (Primary Dx); Gastroesophageal reflux disease with esophagitis, unspecified whether hemorrhage; Mejias's esophagus without dysplasia; History of right hemicolectomy; Abdominal wall pain; 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 Surgical History Surgery Date Site/Laterality Comments APPENDECTOMY PROCEDURE: [place] APPENDECTOMY OTHER SURGICAL HISTORY PROCEDURE: [place] TOTAL ABDOMINAL HYSTERECT W/WO RMVL TUBE OVARY TONSILLECTOMY PROCEDURE: [place] TONSILLECTOMY PRIMARY/SECONDARY <AGE 14 COLONOSCOPY PROCEDURE: HISTORICAL COLONOSCOPY; COMMENT: last in 2013 Jaylyn Bradford OTHER SURGICAL HISTORY PROCEDURE: HISTORY OTHER; COMMENT: skin cancer removed from forehead COLONOSCOPY 08/05/2021 PROCEDURE: HISTORICAL COLONOSCOPY; COMMENT: hot snare polypectomy, large cecal mass- ESOPHAGOGASTRODUODENOSCOPY 08/05/2021 PROCEDURE: [place] ESOPHAGOGASTRODUODENOSCOPY TRANSORAL DIAGNOSTIC; COMMENT: esophagitis, hiatal hernia [...] Info) Description 10/19/2024 1:30 PM EDT Appointment [facility] Endoscopy [address] [place] [phone] Toñito Pride MD 175 [facility] [address] [place] [address] Health Maintenance Due Date Last Done Comments Pneumococcal Vaccine: 50+ Ye ars (1 of 2 - PCV) 1966 Zoster Vaccines (1 of 2) 1966 DTaP,Tdap,and Td Vaccines (2 - Td or Tdap) 01/26/2020 2010 COVID-19 Vaccine (2 - Pfizer risk series) 09/19/2020 08/29/2020 RSV Immunization Adult Patie nts (1 - 1-dose 75+ series) 2022 Depression Screening 04/05/2022 Falls Risk Assessment 04/05/2022 Hepatitis C Screening 04/05/2022 Medicare Annual Wellness Visit 04/05/2022 Osteoporosis Screening (Bone Density Screening) 04/05/2022 Social Influencers of Health Screening 04/05/2022 Influenza Vaccine (Season Ended) 2025 Colorectal Cancer Screening: Colonoscopy Discontinued 08/05/2021 HIB [...] Impression: No significant abnormality identified. Telerad HOLLY ([id number]) -------- FINAL REPORT -------- Dictated By: Sara Soto Dictated Date: 07/11/2024 10:12 ET Assigned Physician: Sara Soto Reviewed and Electronically Signed By: Sara Soto Signed Date: 07/11/2024 10:13 ET Workstation ID: [id number] Transcribed By: Self Edit Transcribed Date: 07/11/2024 [...] IMPRESSION: Impression: No significant abnormality identified. Telerad HOLLY ([id number]) -------- FINAL REPORT -------- Dictated By: Sara Soto Dictated Date: 07/11/2024 10:12 ET Assigned Physician: Sara Soto Reviewed and Electronically Signed By: Sara Soto Signed Date: 07/11/2024 10:13 ET Workstation ID: [id number] Transcribed By: Self Edit Transcribed Date: 07/11/2024 10:12 ET Toñito Pride MD IMG XR PROCEDURES Final Res ult * Colonoscopy (08/05/2021) Colonoscopy Abstracted, no interpretation Anatomical Region Laterality Modality Other us Historical Provider HEALTH MAINTENANCE Final Result from Last 3 Months or Most Recently Relevant to Health Maintenance Insurance MEDICARE [facility] Advance Directives Documents on File Type Date Recorded Patient Team Coordinator Expl anation Health Care Decision (hx) 02/03/2022 AD NGUYỄN DIRECTIVE Health Care Decision (hx) 02/03/2022 AD NGUYỄN DIRECTIVE Health Care Decision (hx) 02/03/2022 AD NGUYỄN DIRECTIVE Health Care Decision (hx) 02/03/2022 AD NGUYỄN DIRECTIVE Health Care Decision (hx) 02/03/2022 AD NGUYỄN DIRECTIVE Care Teams Sports Editor Relationship Specialty Start Date End Date Ruma Bravo MD [address] [address] PCP - General Internal Medicine 05/21/24
--- OUTSIDE RECORDS SUMMARY | 2024-08-08 10:10 | XMS_ITS | Encounter Summary ---
Author Organization [facility] Address [address] [place] [phone] Care Team Providers Care Supply Cataloguer Name Role Phone Ruma Bravo MD Primary Care Provider Reason for Visit * Reason Onset Date Comments provider call back 08/04/2024 Encounter Details Date Type Department Care Team ([facility] st Contact Info) Description 08/04/2024 Telephone Gastroenterology - [place] 175 [facility] 175 [facility] [address] [place] [address] Toñito Pride MD [address] [facility] [address] [place] [address] provider call back Social History Tobacco Use [...] as of this encounter Progress Notes * Alysa Ruth MA - 08/04/2024 1:58 PM EDT I spoke to patient and she wanted to see if there was anything that she could do for what she thinks is IBS as she is still having lower abdominal pain. She has not been having trouble with her bowels nor diarrhea. Patient is usually constipated so she drinks prune juice daily therefore she goes tothe bathroom daily. I let her know her x-ray came back normal. Patient is scheduled in October for colonoscopy +EGD. She inquired about taking linzess for IBS as her intestine feel irritated but I let her know if sheis going to the bathroom daily with prune juice this is better off rather than taking a medication for constipation. Patient wanted to see if you had any recommendations for her lower abd pain. Please advise * Yudith Fischer - 08/04/2024 9:56 AM EDT Patient calling to find out results from xray 07/11/2024 as she has not heard anything. Patient alsostates she is still having intestinal issues & pain and does not think it has to do with her stomach muscles. documented in this encounter Plan of Treatment Upcoming Encounters Date Type Department Care Team (Late st Contact Info) Description 10/19/2024 1:30 PM EDT Appointment [facility] Endoscopy [address] [place] [phone] Toñito Pride MD 175 [facility] 200 [place] [address] documented as of this encounter Visit Diagnoses Not on filedocumented in this encounter Care Teams Supply Cataloguer Relationship Specialty Start Date End Date Ruma Bravo MD [address] [facility] [address] [place] [address] PCP - General Internal Medicine 05/21/24 documented as of this encounter
== END 2024-08-08 09:06 | disposition home or self-care (01) ==
LOC: HO.MRI 09:05
PROVIDERS: PCP Pediatrics; Visit Provider Internal Medicine Rheumatology
DX: Z13.89 Encounter for screening for other disorder (principal)